=== PATIENT | female | born 1935 | race Caucasian/White ===

== ENCOUNTER 2020-05-04 08:10 | Outpatient (REF) | payer MEDICARE, OTHER, SELFPAY ==
[2020-05-04 11:31] LABS: MANUAL DIFF FLAG NO
[2020-05-04 11:43] LABS: Basophils Absolute Auto 0.1 X10*3/uL (0.0-0.2); Basophils Percent Auto 0.8 % (0-2); Eosinophils Absolute Auto 0.3 X10*3/uL (0.0-0.4); Eosinophils Percent Auto 3.4 % (0-4); Hematocrit 40.2 % (37-47); Hemoglobin 12.7 g/dl (12.0-16.0); Imm Gran Abs Auto 0.03 X10*3/uL (0.00-0.03); Imm Gran Pct Auto 0.3 % (0.0-0.4); Lymphocytes Absolute Auto 1.3 X10*3/uL (1.2-4.9); Lymphocytes Percent Auto 14.5 % (20-40); Mean Corpuscular HGB Conc 31.6 g/dl (31.0-35.0); Mean Corpuscular Hemoglobin 29.7 pg (27.0-33.0); Mean Corpuscular Volume 94.1 fL (80-98); Mean Platelet Volume 10.2 fL (9.4-12.3); Monocytes Percent Auto 10.7 % (2-11); Neutrophils Absolute Auto 6.4 X10*3/uL (2.0-8.3); Neutrophils Percent Auto 70.3 % (45-73); Platelet Count 278 X10*3/uL (160-400); Red Blood Count 4.27 X10*6/uL (4.20-5.50); Red Cell Distribution Width 13.4 % (11.0-16.0); White Blood Count 9.1 X10*3/uL (4.8-10.8)
[2020-05-04 12:03] LABS: Albumin Level 4.5 g/dL (3.5-5.0); Anion Gap 17 (12-20); Blood Urea Nitrogen 43 mg/dL (9-16); Calcium 9.5 mg/dL (8.4-10.2); Carbon Dioxide 30 mmol/L (22-29); Chloride 99 mmol/L (96-108); Estimated Glomerular Filt Rate 25; Phosphorus 3.3 mg/dL (2.7-4.5); Sodium 142 mmol/L (135-145)
[2020-05-04 14:22] LABS: Renal w Reflex Lab Use Only Order verified
[2020-05-05 17:52] LABS: Calcium (PTHI) 10.2 mg/dL (8.6-10.4); PTHI 107 pg/mL (14-64)
== END 2020-05-04 08:11 | disposition home or self-care (01) ==
LOC: HO.HMGCLDS 08:10
PROVIDERS: PCP Internal Medicine; Visit Provider Internal Medicine Nephrology
DX: I12.9 Hypertensive chronic kidney disease with stage 1 through stage 4 chronic kidney disease, or unspecified chronic kidney disease (principal); N18.30 Chronic kidney disease, stage 3 unspecified; N17.9 Acute kidney failure, unspecified; R80.9 Proteinuria, unspecified
CPT/HCPCS: 36415; 80051; 82040; 82310; 82565; 83970; 84100; 84520; 85025

== ENCOUNTER → 2020-05-06 08:58 | Outpatient (BNVA) | payer MEDICARE, OTHER, SELFPAY | PROVIDERS: PCP Internal Medicine; Referring Provider Internal Medicine; Visit Provider Nurse Practitioner | DX: Z71.2 Person consulting for explanation of examination or test findings (principal); Z86.010 Personal history of colon polyps; Z80.0 Family history of malignant neoplasm of digestive organs | CPT/HCPCS: 99212 ==

== ENCOUNTER 2020-08-27 09:21 | Outpatient (REF) | payer MEDICARE, OTHER, SELFPAY ==
[2020-08-27 12:05] LABS: Anion Gap 14 (12-20); Blood Urea Nitrogen 36 mg/dL (9-16); Calcium 9.6 mg/dL (8.4-10.2); Carbon Dioxide 26 mmol/L (22-29); Chloride 106 mmol/L (96-108); Estimated Glomerular Filt Rate 24; Phosphorus 3.3 mg/dL (2.7-4.5); Potassium 4.3 mmol/L (3.3-5.1); Sodium 142 mmol/L (135-145)
[2020-08-27 13:26] LABS: Renal w Reflex Lab Use Only Order verified
== END 2020-08-27 09:22 | disposition home or self-care (01) ==
LOC: HO.HMGCLDS 09:21
PROVIDERS: PCP Internal Medicine; Visit Provider Internal Medicine Nephrology
DX: I12.9 Hypertensive chronic kidney disease with stage 1 through stage 4 chronic kidney disease, or unspecified chronic kidney disease (principal); N18.30 Chronic kidney disease, stage 3 unspecified; R80.9 Proteinuria, unspecified; N17.9 Acute kidney failure, unspecified
CPT/HCPCS: 36415; 80051; 82310; 82565; 84100; 84520

== ENCOUNTER 2021-09-14 11:48 | Emergency (ER) | payer MEDICARE, SELFPAY ==
--- NOTE | ~2021-09-14 | US_ITS ---
EXAMINATION: US VENOUS ULTRASOUND WITH DOPPLER LOWER EXTREMITY, LEFT CLINICAL INFORMATION: Left leg pain COMPARISON: None TECHNIQUE: Ultrasound of the deep veins is performed from the hip to the calf with compression sonography and color and pulse Doppler assessment. Spectral analysis with color-flow imaging is performed. FINDINGS: There is normal venous compression and respiratory variation and augmented flow. The visualized common femoral vein, superficial femoral vein, profunda femoral vein, popliteal vein, and the trifurcation region shows no evidence of deep venous thrombosis. There is no significant popliteal fossa cyst. No popliteal artery aneurysm. US/US venous duplex LE LT IMPRESSION: No acute DVT demonstrated in the left lower extremity.
[2021-09-14 12:06] VITALS: BP 145/88; PULSE 18; RESP 16; TEMP 36.6; O2SAT 97; BMI 28.3
--- NOTE | 2021-09-14 12:26 | ED_ITS ---
HPI - Extremity Problem General Chief complaint: Extremity Problem Stated complaint: leg pain ? blood clot Time Seen by Provider: 09/14/21 12:25 Source: patient Mode of arrival: ambulatory Limitations: no limitations History of Present Illness HPI Narrative: 86-year-old female came in for evaluation of Left lower extremities pain. Pain started about 7 days ago, declined any trauma to the lower extremities, pain is constant, described as dull aching pain to the back of her left thigh traveling down to the lateral aspect of left lower leg, pain is more with movement, no relieving factor, no associated symptoms of fever or chills. No recent travel, no lower extremities swelling. 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 No back pain, no numbness, no weakness, no urinary or stool incontinence. Related Data Previous Rx's Medication Instructions Recorded rosuvastatin 40 mg tablet 40 mg PO DAILY #90 tab 11/09/20 Allergies Allergy/AdvReac Type Severity Reaction Status Date / Time No Known Allergies Allergy Verified 05/06/20 08:59 [No Known Allergies*] Review of Systems Review of Systems: All other systems are reviewed and are negative Constitutional: Reports as per HPI and Reports no additional constitutional complaints Eyes: Reports as per HPI and Reports no additional eye complaints Reports system reviewed and no additional complaints, except as documented Cardiovascular: Reports as per HPI and Reports no additional cardiovascular complaints Respiratory: Reports as per HPI and Reports no additional respiratory complaints Gastrointestinal: Reports as per HPI and Reports no additional gastrointestinal complaints Genitourinary: Reports no additional female genitourinary complaints Musculoskeletal: Reports no additional musculoskeletal complaints Skin/Breast: Reports system reviewed and no additional complaints, except as docu Psychiatric: Reports no additional psychiatric complaints Endocrine: Reports no additional endocrine complaints Hematologic/Lymphatic: Reports no additional hematologic/lymphatic complaints Allergic/Immunologic: Reports no additional allergic/immunologic complaints Reports system reviewed and no additional complaints, except as documented and Reports Abnormal speech present PMFSH Past Medical History Surgical History Hx of cardiac catheterization (~05/2020) Hx of colonoscopy Hx of endoscopy Family History Family History Father Lung cancer Stomach ulcer Sister Colon cancer, Onset Age: 80 Breast cancer Heart disease HTN (hypertension) Mother Cirrhosis of liver Family/Other Stomach ulcer Social History Social History Alcohol intake: current Alcohol intake frequency: does not drink Advance Directives: Yes Advance Directives Information Provided: No Advance Directives on File: No Physical Exam Vital Signs: Vital Signs: Last Vital Signs Temp 97.8 F 09/14/21 12:06 Pulse 18 L 09/14/21 12:06 Resp 16 09/14/21 12:06 BP 145/88 H 09/14/21 12:06 Pulse Ox 97 09/14/21 12:06 BMI result Body Mass Index 28.3 Vital signs have been reviewed as appeared to be correct. Blood pressure normal. Heart rate normal. Respiration rate normal. Temperature normal. Oxygen saturation normal. Appearance: Alert. Oriented X3. No acute distress. Head: Normal external exam. Normocephalic. Atraumatic. No Ramos signs noted. No raccoon eyes noted Eyes: PERRLA. EOMI. Conjunctiva and sclera normal. Eyelids normal. ENT: TM's Normal. Pharynx normal. Uvula midline. Moist mucous membranes. No trismus noted. No drooling noted. No muffled voice noted. Neck: Normal inspection. Neck supple. FROM. No adenopathy. Thyroid Normal. No meningeal signs. No neck mass noted. CVS: Normal heart rate and rhythm. Heart sound normal. No murmurs noted. Pulses normal throughout. Respiratory: No respiratory distress. Painless inspiration. Breath sounds normal. No wheezes/rales/rhonchi noted. Chest nontender. No accessory muscle usage noted or decreased air movement noted. Abdomen: Soft and nontender. Bowel sounds normal in all 4 quadrants. No distention noted. No organomegaly noted. No visible injury noted. Back: No CVA tenderness. Full range of motion noted. Skin: Skin warm and dry. Normal skin color. Normal skin turgor. No rashes/lesions/lacerations noted. Extremities: No lower extremity edema. Extremities exhibit normal range of motion. Extremities nontender. Neuro: Oriented X 3. Cranial nerve exam: II-XII are grossly intact No motor deficit. No sensory deficit. Reflexes normal. Course Course Course Narrative: Assessment and plan. 86-year-old female with left lower extremities pain for the past week, no trauma, no deformity, no back issue, normal neuro exam, elevated D-dimer but negative ultrasound for DVT, labs unremarkable for chronic but stable renal insufficiency patient is already following with Dr. Zimmer from Renal. MDM - Extremity (Nontraumatic) Lab Data Attestation: I reviewed the patient's lab results. Result diagrams: 09/14/21 13:03 09/14/21 13:03 Labs: Lab Results 09/14/21 09/14/21 09/14/21 Range/Units 13:03 13:03 13:03 WBC 8.4 (4.8-10.8) X10*3/uL RBC 3.95 L (4.20-5.50) X10*6/uL Hgb 12.0 (12.0-16.0) g/dl Hct 37.0 (37.0-47.0) % MCV 93.7 (80.0-98.0) fL MCH 30.4 (27.0-33.0) pg MCHC 32.4 (31.0-35.0) g/dl RDW 13.7 (11.0-16.0) % Plt Count 195 (160-400) X10*3/uL MPV 9.5 (9.4-12.3) fL Immature Gran % (Auto) 0.4 (0.0-0.4) % Neut % (Auto) 65.1 (45-73) % Lymph % (Auto) 17.8 L (20-40) % [place] % (Auto) 12.4 H (2-11) % Eos % (Auto) 3.8 (0-4) % Baso % (Auto) 0.5 (0-2) % Lymph # (Auto) 1.5 (1.2-4.9) X10*3/uL [place] # (Auto) 1.0 (0.1-1.2) X10*3/uL Eos # (Auto) 0.3 (0.0-0.4) X10*3/uL Baso # (Auto) 0.0 (0.0-0.2) X10*3/uL Abs Immat Gran (auto) 0.03 (0.00-0.03) X10*3/uL Absolute Neuts (auto) 5.5 (2.0-8.3) x10*3/uL Absolute Nucleated RBC 0.000 (0.0-0.012) X10*3/uL Nucleated RBC % (auto) 0.0 (0.0-0.2) /100WBC D-Dimer High Sensitivty 665 NG/ML Sodium 138 (135-145) mmol/L Potassium 3.9 (3.3-5.1) mmol/L Chloride 106 (96-108) mmol/L Carbon Dioxide 21 L (22-29) mmol/L Anion Gap 15 (12-20) BUN 40 H (9-16) mg/dL Creatinine 2.56 H (0.5-1.4) mg/dL Estim Creat Clear Calc 16.2 Estimated GFR 18 Random Glucose 160 H (60-115) mg/dL Calcium 9.9 (8.4-10.2) mg/dL Imaging Data Left lower extremity is ultrasound: Attestation: I personally reviewed and interpreted this imaging study as follows: Radiologist's impression: No acute DVT demonstrated in the left lower extremity. Discharge Plan Discharge Clinical Impression: Left leg pain Patient Disposition: Home, Self-Care Instructions: Leg Pain (ED) Additional Instructions: Voltaren is good [id number] anti inflammatory and pain control ointment to use twice a day if needed for pain. Prescriptions: No Action rosuvastatin 40 mg tablet 40 mg PO DAILY Qty: 90 0RF Rx Instructions: needs cardiology follow up before more refills Referrals: Ene Menon NP [Primary Care Provider] - 2 days
[2021-09-14 13:10] LABS: MANUAL DIFF FLAG NO
[2021-09-14 13:11] LABS: Basophils Percent Auto 0.5 % (0-2); Eosinophils Absolute Auto 0.3 X10*3/uL (0.0-0.4); Eosinophils Percent Auto 3.8 % (0-4); Imm Gran Abs Auto 0.03 X10*3/uL (0.00-0.03); Imm Gran Pct Auto 0.4 % (0.0-0.4); Lymphocytes Absolute Auto 1.5 X10*3/uL (1.2-4.9); Lymphocytes Percent Auto 17.8 % (20-40); Mean Corpuscular HGB Conc 32.4 g/dl (31.0-35.0); Mean Corpuscular Hemoglobin 30.4 pg (27.0-33.0); Mean Corpuscular Volume 93.7 fL (80.0-98.0); Mean Platelet Volume 9.5 fL (9.4-12.3); Monocytes Percent Auto 12.4 % (2-11); Neutrophils Absolute Auto 5.5 x10*3/uL (2.0-8.3); Neutrophils Percent Auto 65.1 % (45-73); Platelet Count 195 X10*3/uL (160-400); Red Blood Count 3.95 X10*6/uL (4.20-5.50); Red Cell Distribution Width 13.7 % (11.0-16.0); White Blood Count 8.4 X10*3/uL (4.8-10.8)
[2021-09-14 13:19] LABS: D Dimer High Sensitivity 665 NG/ML
[2021-09-14 13:24] LABS: Anion Gap 15 (12-20); Blood Urea Nitrogen 40 mg/dL (9-16); Calcium 9.9 mg/dL (8.4-10.2); Carbon Dioxide 21 mmol/L (22-29); Chloride 106 mmol/L (96-108); Creatinine Clr Calc Pharmacy 16.2; Estimated Glomerular Filt Rate 18; Glucose Random 160 mg/dL (60-115); Potassium 3.9 mmol/L (3.3-5.1); Sodium 138 mmol/L (135-145)
[2021-09-14 14:13] VITALS: BP 143/68; PULSE 80; RESP 18; O2SAT 98
== END 2021-09-14 14:14 | disposition home or self-care (01) ==
PROVIDERS: Emergency Provider Emergency Medicine; PCP Nurse Practitioner Family
DX: M79.605 Pain in left leg (principal); R60.0 Localized edema; Z79.899 Other long term (current) drug therapy; Z79.01 Long term (current) use of anticoagulants
CPT/HCPCS: 36415; 80048; 85025; 85379; 93971; 99283; 99284

== ENCOUNTER 2021-09-26 11:12 | Inpatient (IN) | payer MEDICARE, SELFPAY ==
--- NOTE | ~2021-09-26 | US_ITS ---
EXAMINATION: NONINVASIVE ASSESSMENT OF THE ARTERIES OF THE LEFT LOWER EXTREMITY CLINICAL INFORMATION: Redness and pain TECHNIQUE: Duplex Doppler techniques with wave form analysis and measurement of velocities in the common femoral, profunda femoral, superficial femoral, popliteal and tibial arteries on the left. The study was performed only at rest. COMPARISON: None FINDINGS: * LEFT LE. Left direct duplex Doppler findings: There is evidence of atherosclerotic disease with vessel wall calcification. * Common femoral artery: 244 cm/s, Diastolic flow reversal: Yes * Superficial femoral artery (proximal, mid, distal): 221, 77 and 39 cm/s, Diastolic flow reversal: No, mixed biphasic and monophasic * Popliteal artery: 46 cm/s, Diastolic flow reversal: No. Monophasic * Posterior tibial artery visualized at the ankle only: 22 cm/s, Diastolic flow reversal: No. Monophasic. * Profunda femoral artery: 2 3 4 cm/s. Diastolic flow reversal: No. Biphasic flow. US/US arterial duplex LE LT IMPRESSION: Abnormal exam. Increased peak systolic velocities in the common femoral, proximal superficial femoral and profunda femoral arteries suggestive of stenosis/inflow disease. There is decreased peak systolic velocity in the mid and distal superficial femoral, popliteal and posterior tibial arteries and abnormal biphasic to monophasic flow.
--- NOTE | ~2021-09-26 | US_ITS ---
EXAMINATION: US VENOUS ULTRASOUND WITH DOPPLER LOWER EXTREMITY, BILATERAL CLINICAL INFORMATION: Leg pain COMPARISON: Venous Doppler ultrasound exam 09/14/2021 left leg TECHNIQUE: Ultrasound of the deep veins is performed from the hip to the calf with compression sonography and color and pulse Doppler assessment. Spectral analysis with color-flow imaging is performed. FINDINGS: RIGHT: There is normal venous compression and respiratory variation and augmented flow. The visualized common femoral vein, superficial femoral vein, profunda femoral vein, popliteal vein, and the trifurcation region shows no evidence of deep venous thrombosis. Posterior tibial vein is normal. The peroneal vein is not well seen.. There is no significant popliteal fossa cyst. LEFT: There is normal venous compression and respiratory variation and augmented flow. The visualized common femoral vein, superficial femoral vein, profunda femoral vein, popliteal vein, and the trifurcation region shows no evidence of deep venous thrombosis. Posterior tibial vein is normal. The peroneal vein is not well seen There is no significant popliteal fossa cyst. If the patient's symptoms persist, followup ultrasound in 5 days 7 days might be of value to exclude proximal propagation from a non-visualized calf vein. US/US venous duplex LE IMPRESSION: No DVT demonstrated in the bilateral lower extremity.
--- NOTE | ~2021-09-26 | US_ITS ---
EXAMINATION: US RETROPERITONEAL LIMITED (RENAL ONLY) CLINICAL INFORMATION: Acute and chronic kidney disease. COMPARISON: Previous CT of the abdomen and pelvis August 2018 TECHNIQUE: Grayscale imaging of the kidneys. FINDINGS: RIGHT KIDNEY: 8.4 x 3.5 x 3.5 cm (SAG x AP x TRV). The right kidney is smaller than the left. There is renal cortical thinning. No calculi or focal parenchymal lesions. No hydronephrosis. LEFT KIDNEY: 11.3 x 6.1 x 5.8 cm (SAG x AP x TRV). The kidney is normal in size, contour, and echogenicity. Renal cortical thickness is normal. No calculi or focal parenchymal lesions. No hydronephrosis. US/US renal BI IMPRESSION: Small right kidney and right renal cortical thinning. This is similar to previous CT August 2018. Normal left kidney. No hydronephrosis..
[2021-09-26 12:33] VITALS: BP 153/65; PULSE 90; RESP 16; TEMP 36.8; O2SAT 98; BMI 28.3
[2021-09-26 16:03] LABS: MANUAL DIFF FLAG NO
[2021-09-26 16:09] LABS: Basophils Percent Auto 0.2 % (0-2); Eosinophils Percent Auto 0.1 % (0-4); Hemoglobin 13.4 g/dl (12.0-16.0); Imm Gran Abs Auto 0.32 X10*3/uL (0.00-0.03); Mean Corpuscular HGB Conc 35.3 g/dl (31.0-35.0); Mean Corpuscular Hemoglobin 30.6 pg (27.0-33.0); Mean Corpuscular Volume 86.8 fL (80.0-98.0); Mean Platelet Volume 9.5 fL (9.4-12.3); Monocytes Absolute Auto 1.3 X10*3/uL (0.1-1.2); Monocytes Percent Auto 11.9 % (2-11); Neutrophils Absolute Auto 8.1 x10*3/uL (2.0-8.3); Neutrophils Percent Auto 75.8 % (45-73); Platelet Count 172 X10*3/uL (160-400); Red Blood Count 4.38 X10*6/uL (4.20-5.50); Red Cell Distribution Width 13.7 % (11.0-16.0); White Blood Count 10.7 X10*3/uL (4.8-10.8)
[2021-09-26 16:20] LABS: COVID-19 Test Negative (Negative); IDNOW Serial# 16C4AD1C
[2021-09-26 16:47] LABS: Anion Gap 27 (12-20); Blood Urea Nitrogen 118 mg/dL (9-16); Calcium 7.3 mg/dL (8.4-10.2); Carbon Dioxide 8 mmol/L (22-29); Chloride 99 mmol/L (96-108); Creatinine Clr Calc Pharmacy 5.5; Estimated Glomerular Filt Rate 5; Glucose Random 152 mg/dL (60-115); Potassium 3.6 mmol/L (3.3-5.1); Sodium 130 mmol/L (135-145)
--- NOTE | 2021-09-26 17:08 | ED.GENADULT ---
HPI - General Adult General Chief complaint: General Medical Stated complaint: VOMITING DIARRHEA WEAKNESS Time Seen by Provider: 09/26/21 16:47 Source: patient and family Mode of arrival: wheelchair Limitations: no limitations History of Present Illness HPI narrative: Patient comes to emergency room complaining of vomiting and diarrhea for 5 days. Patient states that this morning patient started feeling very weak. Patient called her primary care physician and was asked to come to the emergency room. Patient denies any blood in the stool, no abdominal pain. Patient states that she has been unable to take her p.o. medications because she vomits them right away. Patient states that her daughter her 2 grandsons are sick at home with GI bug Related Data Home Medications Medication Instructions Recorded Confirmed amlodipine 10 mg tablet 10 mg PO DAILY 09/26/21 09/26/21 anastrozole 1 mg tablet 1 mg PO DAILY 09/26/21 09/26/21 ascorbic acid (vitamin C) 500 mg mg PO 09/26/21 capsule cholecalciferol (vitamin D3) 50 mcg PO DAILY 09/26/21 mcg (2,000 unit) capsule (Vitamin D3) dulaglutide 1.5 mg/0.5 mL 1.5 mg SUBCUT TU@1000 09/26/21 09/26/21 subcutaneous pen injector (Trulicity) famotidine 20 mg tablet 20 mg PO DAILY 09/26/21 09/26/21 metoprolol succinate 50 mg 50 mg PO DAILY 09/26/21 09/26/21 tablet,extended release 24 hr pantoprazole 40 mg tablet,delayed 40 mg PO DAILY 09/26/21 09/26/21 release vitamin B complex 1 tab PO DAILY 09/26/21 09/26/21 Previous Rx's Medication Instructions Recorded rosuvastatin 40 mg tablet 40 mg PO DAILY #90 tab 11/09/20 Allergies Allergy/AdvReac Type Severity Reaction Status Date / Time No Known Allergies Allergy Verified 05/06/20 08:59 [No Known Allergies*] Review of Systems Review of Systems: Constitutional : No Weight loss, No Fever, No Chills, No Night Sweats, complaining of generalized weakness and fatigue ENT/Mouth : No Hearing loss, No Ear Pain, No Nasal Congestion, No Sinus Pain, No Hoarseness, No sore throat, No Rhinorrhea, No Swallowing Difficulty Eyes: No Eye Pain, No Swelling, No Redness, No Foreign Body, No Discharge, No Vision Changes Cardiovascular : No Chest Pain, No SOB, No Dyspnea on Exertion, No Orthopnea, No Edema, No Palpitations Respiratory : No Cough, No Sputum, No Wheezing, No Smoke Exposure, No Dyspnea Gastrointestinal : Complaining of nausea vomiting and diarrhea for 5 days. No Constipation, No abdominal Pain, No Hematochezia, No Melena Genitourinary : no irregular bleeding, No Dysuria, No Urinary Frequency, No Hematuria, No Urinary Incontinence, No Urgency, No Flank Pain, No Urinary Flow Changes, No Hesitancy Musculoskeletal : No joint pain, No Myalgias, No Joint Swelling Skin : No Skin Lesions, No rash Neuro : No Weakness, No Numbness, No Paresthesias, No Loss of Consciousness, No Dizziness, No Headache Psych : No Anxiety/Panic, No Depression, No SI/HI/AH/VH, No Social Issues, Heme/Lymph: No Bruising, No Bleeding,No Lymphadenopathy Endocrine : No Polyuria, No Polydipsia, No Temperature Intolerance [facility] Past Medical History Medical History CKD (chronic kidney disease) Coronary artery disease Diabetes Hypertension Surgical History Hx of cardiac catheterization (~05/2020) Hx of colonoscopy Hx of endoscopy Family History Family History Father Lung cancer Stomach ulcer Sister Colon cancer, Onset Age: 80 Breast cancer Heart disease HTN (hypertension) Mother Cirrhosis of liver Family/Other Stomach ulcer Social History Social History Alcohol intake: never Patient Tobacco Use Status: Former Tobacco user Advance Directives: Yes Advance Directives Information Provided: No Advance Directives on File: No Physical Exam ED Vital Signs: Vital Signs - 24 hr 09/26/21 12:33 09/26/21 17:29 Temperature 98.2 F 97.6 F Pulse Rate 90 88 Respiratory Rate 16 18 Blood Pressure 153/65 H 132/50 L Pulse Oximetry 98 99 BMI result Body Mass Index 28.3 Const Other: Appearance: Alert. Oriented X3. No acute distress. Eyes: Pupils equal, round and reactive to light. ENT: Dry oral mucosa Neck: Normal inspection. Neck supple. No lymph nodes noted. No crepitus CVS: Normal heart rate and rhythm. Pulses normal. Normal S1 and S2 Respiratory: No respiratory distress. Breath sounds normal. No Wheezing. No rales Abdomen: Soft and nontender. No rigidity. No distention. Skin: Skin warm and dry. Normal skin color. Normal skin turgor. Extremities: No lower extremity edema. No Lacerations. No Rash Neuro: Oriented X 3. No motor deficit. No sensory deficit. Moving all extremities. No slurred speech. CN 2 through 12 grossly intact Psych: calm, cooperative, normal affect Course Course Course Narrative: Patient's creatinine baseline is 2.5. Today 7.45. Patient is receiving IV fluids. Discussed with the patient that she will be admitted to the hospital. Patient's ABG shows a bicarb of 6. This is after 1 amp of bicarb. We will go ahead and give a 2nd amp. Patient's metabolic acidosis is likely secondary to diarrhea. Patient is getting a 2nd amp of bicarb, also will be repleted with p.o.. Physically, patient is well-appearing, otherwise feels well I discussed the patient with Dr. Walker, patient being admitted. Medical Decision Making Lab Data Result diagrams: 09/26/21 15:59 09/26/21 15:59 Labs: Lab Results 09/26/21 09/26/21 09/26/21 Range/Units 15:59 15:59 15:59 WBC 10.7 (4.8-10.8) X10*3/uL RBC 4.38 (4.20-5.50) X10*6/uL Hgb 13.4 (12.0-16.0) g/dl Hct 38.0 (37.0-47.0) % MCV 86.8 (80.0-98.0) fL MCH 30.6 (27.0-33.0) pg MCHC 35.3 H (31.0-35.0) g/dl RDW 13.7 (11.0-16.0) % Plt Count 172 (160-400) X10*3/uL MPV 9.5 (9.4-12.3) fL Immature Gran % (Auto) 3.0 H (0.0-0.4) % Neut % (Auto) 75.8 H (45-73) % Lymph % (Auto) 9.0 L (20-40) % [place] % (Auto) 11.9 H (2-11) % Eos % (Auto) 0.1 (0-4) % Baso % (Auto) 0.2 (0-2) % Lymph # (Auto) 1.0 L (1.2-4.9) X10*3/uL [place] # (Auto) 1.3 H (0.1-1.2) X10*3/uL Eos # (Auto) 0.0 (0.0-0.4) X10*3/uL Baso # (Auto) 0.0 (0.0-0.2) X10*3/uL Abs Immat Gran (auto) 0.32 H (0.00-0.03) X10*3/uL Absolute Neuts (auto) 8.1 (2.0-8.3) x10*3/uL Absolute Nucleated RBC 0.000 (0.0-0.012) X10*3/uL Nucleated RBC % (auto) 0.0 (0.0-0.2) /100WBC O2 Saturation % ABG pH at Pt Temp (7.35-7.45) ABG pCO2 at Pt Temp (32-45) mmHg ABG pO2 at Pt Temp (83-108) mmHg ABG HCO3 (22-26) mmol/L ABG Base Excess (Actual) mmol/L Sodium 130 L (135-145) mmol/L Potassium 3.6 (3.3-5.1) mmol/L Chloride 99 (96-108) mmol/L Carbon Dioxide 8 L* D (22-29) mmol/L Anion Gap 27 H (12-20) BUN 118 H D (9-16) mg/dL Creatinine 7.45 H* (0.5-1.4) mg/dL Estim Creat Clear Calc 5.5 Estimated GFR 5 Random Glucose 152 H (60-115) mg/dL Calcium 7.3 L D (8.4-10.2) mg/dL Total Bilirubin 0.6 (0.0-1.0) mg/dL Direct Bilirubin 0.2 (0.0-0.5) mg/dL AST 23 (5-31) U/L ALT 24 (0-31) U/L Alkaline Phosphatase 72 (39-117) U/L Total Protein 7.5 (6.5-8.0) g/dL Albumin 4.4 (3.5-5.0) g/dL COVID-19 ([facility]) Negative (Negative) COVID-19 Clin Com See Note Influenza Type A ([facility]) (Negative) Influenza Type B ([facility]) (Negative) Influenza A & B Note 09/26/21 09/26/21 09/26/21 Range/Units 18:21 18:21 20:17 WBC (4.8-10.8) X10*3/uL RBC (4.20-5.50) X10*6/uL Hgb (12.0-16.0) g/dl Hct (37.0-47.0) % MCV (80.0-98.0) fL MCH (27.0-33.0) pg MCHC (31.0-35.0) g/dl RDW (11.0-16.0) % Plt Count (160-400) X10*3/uL MPV (9.4-12.3) fL Immature Gran % (Auto) (0.0-0.4) % Neut % (Auto) (45-73) % Lymph % (Auto) (20-40) % [place] % (Auto) (2-11) % Eos % (Auto) (0-4) % Baso % (Auto) (0-2) % Lymph # (Auto) (1.2-4.9) X10*3/uL [place] # (Auto) (0.1-1.2) X10*3/uL Eos # (Auto) (0.0-0.4) X10*3/uL Baso # (Auto) (0.0-0.2) X10*3/uL Abs Immat Gran (auto) (0.00-0.03) X10*3/uL Absolute Neuts (auto) (2.0-8.3) x10*3/uL Absolute Nucleated RBC (0.0-0.012) X10*3/uL Nucleated RBC % (auto) (0.0-0.2) /100WBC O2 Saturation 96.0 % ABG pH at Pt Temp 7.20 L* (7.35-7.45) ABG pCO2 at Pt Temp 15 L* (32-45) mmHg ABG pO2 at Pt Temp 109 H (83-108) mmHg ABG HCO3 6 L (22-26) mmol/L ABG Base Excess (Actual) -19.0 mmol/L Sodium (135-145) mmol/L Potassium (3.3-5.1) mmol/L Chloride (96-108) mmol/L Carbon Dioxide (22-29) mmol/L Anion Gap (12-20) BUN (9-16) mg/dL Creatinine (0.5-1.4) mg/dL Estim Creat Clear Calc Estimated GFR Random Glucose (60-115) mg/dL Calcium (8.4-10.2) mg/dL Total Bilirubin (0.0-1.0) mg/dL Direct Bilirubin (0.0-0.5) mg/dL AST (5-31) U/L ALT (0-31) U/L Alkaline Phosphatase (39-117) U/L Total Protein (6.5-8.0) g/dL Albumin (3.5-5.0) g/dL COVID-19 ([facility]) Negative (Negative) COVID-19 Clin Com See Note Influenza Type A ([facility]) Negative (Negative) Influenza Type B ([facility]) Negative (Negative) Influenza A & B Note See Note Discharge Plan Discharge Clinical Impression: Nausea vomiting and diarrhea, Acute hyponatremia, [id number] renal failure Patient Disposition: Admitted As Inpatient
[2021-09-26 17:29] VITALS: BP 132/50; PULSE 88; RESP 18; TEMP 36.4; O2SAT 99
[2021-09-26 17:32] LABS: Alanine Aminotransferase 24 U/L (0-31); Albumin Level 4.4 g/dL (3.5-5.0); Alkaline Phosphatase 72 U/L (39-117); Aspartate Amino Transferase 23 U/L (5-31); Bilirubin Direct 0.2 mg/dL (0.0-0.5); Bilirubin Total 0.6 mg/dL (0.0-1.0); Total Protein 7.5 g/dL (6.5-8.0)
[2021-09-26] MEDS: ondansetron HCL 4 MG/2 ML VIAL IVPUSH (18:08)
[2021-09-26] MEDS: Loperamide HCl 2 MG CAPSULE 4 MG PO (18:08)
[2021-09-26] MEDS: Sodium Bicarbonate 8.4% 50 MEQ/50 ML SYRINGE IVPUSH ×2 (18:09→20:46)
[2021-09-26] MEDS: Lactated Ringers 500 ML 999 ML IV (18:42)
[2021-09-26 18:43] LABS: COVID-19 Test Negative (Negative); IDNOW Serial# 55D5AD1C
[2021-09-26 18:44] LABS: IDNOW Serial# 08D9AD1C; Influenza A Negative (Negative); Influenza B2 Negative (Negative)
[2021-09-26 20:02] VITALS: O2SAT 98
--- NOTE | 2021-09-26 20:12 | PHA.MEDREC ---
MED REC COMPLETE, PATIENT HAS BEEN UMABLE TO KEEP ANY MEDICATIONS DOWN FOR SEVERAL DAYS, JUST NEED TO VERIFY DOSES ON VIT D AND C, DAUGHTER WAS UNSURE OF DOSE Pharmacy Consult ? Medication Reconciliation Pharmacy has completed the medication reconciliation.
[2021-09-26 20:26] LABS: ABG Refer to POC result
[2021-09-26 20:27] LABS: ABG HCO3 6 mmol/L (22-26); ABG pCO2 15 mmHg (32-45); ABG pO2 109 mmHg (83-108)
--- NOTE | 2021-09-26 21:34 | P.HPHOSP_ITS ---
History of Present Illness Date of Service: 09/26/21 Chief Complaint: nausea/vomiting / diarrhea 86-year-old female with a past history of hypertension, hyperlipidemia, diabetes, CKD, CAD presented to the hospital today with a chief complaint nausea vomiting and diarrhea. Patient reports that over the past 1 week she has been having nausea vomiting and diarrhea and also decreased oral intake. Mentions that she has sick contacts at home has grand kid with similar symptoms; denies any abdominal pain. Denies any blood in the vomitus or stool. Mentions that she has been complaint with her home medications. Mentions that she used to take furosemide for her peripheral edema but not on it anymore. Denies any fever chills cough. Denies any urinary symptoms. Review of all other systems is negative except mentioned above ER course: Per ER team patient noted to have benign examination; on labs noted to have severe BUCK with creatinine of 7.4 compared to baseline of 2.5. Also noted to have metabolic acidosis in the setting of renal insufficiency. Patient was given 2 ampules of sodium bicarb. PH noted to be 7.2. Admitted to the hospital for further management. [facility] Medical History CKD (chronic kidney disease) Coronary artery disease Diabetes Hypertension Family History Father Lung cancer Stomach ulcer Sister Colon cancer, Onset Age: 80 Breast cancer Heart disease HTN (hypertension) Mother Cirrhosis of liver Family/Other Stomach ulcer Surgical History Hx of cardiac catheterization (~05/2020) Hx of colonoscopy Hx of endoscopy Social History Household Members: Children Housing: House Do you presently have visiting nurse or other home services: No Alcohol intake: never Patient Tobacco Use Status: Former Tobacco user Advance Directives Date on File: 09/27/21 service: No Current occupational status: retired Meds Allergies Allergy/AdvReac Type Severity Reaction Status Date / Time No Known Allergies Allergy Verified 05/06/20 08:59 [No Known Allergies*] Active Medications: Current Medications Pharmacy Consult (Consult Rx Perform Med Rec) 1 each MISCELLANE ONCE PRN PRN Reason: Consult order Home Medications Medication Instructions Recorded Confirmed Last Taken Type amlodipine 10 mg tablet 10 mg PO DAILY 09/26/21 09/26/21 Unknown History anastrozole 1 mg tablet 1 mg PO DAILY 09/26/21 09/26/21 Unknown History ascorbic acid (vitamin C) 500 mg mg PO 09/26/21 Unknown History capsule cholecalciferol (vitamin D3) 50 mcg PO DAILY 09/26/21 Unknown History mcg (2,000 unit) capsule (Vitamin D3) dulaglutide 1.5 mg/0.5 mL 1.5 mg SUBCUT TU@1000 09/26/21 09/26/21 Unknown History subcutaneous pen injector (Trulicity) famotidine 20 mg tablet 20 mg PO DAILY 09/26/21 09/26/21 Unknown History metoprolol succinate 50 mg 50 mg PO DAILY 09/26/21 09/26/21 Unknown History tablet,extended release 24 hr pantoprazole 40 mg tablet,delayed 40 mg PO DAILY 09/26/21 09/26/21 Unknown History release vitamin B complex 1 tab PO DAILY 09/26/21 09/26/21 Unknown History Physical Exam Vital Signs and Narrative: Vital Signs: Last Vital Signs Temp 97.6 F 09/26/21 17:29 Pulse 88 09/26/21 17:29 Resp 18 09/26/21 17:29 BP 132/50 L 09/26/21 17:29 Pulse Ox 99 09/26/21 17:29 BMI result Body Mass Index 28.3 Gen: Appears be in no acute distress HEENT: NCAT, Moist mucosa. Pulmonary: Vesicular breath sounds, fair air entry CVS: Normal S1-S2 Abdomen: BS+, Soft, Nontender Extremities: Warm well perfused Neuro: Alert and awake. Results Labs CBC and Chem 7: 09/28/21 06:10 09/28/21 11:04 Labs: Laboratory Results - last 24 hr 09/26/21 09/26/21 09/26/21 15:59 15:59 15:59 MCV 86.8 MCH 30.6 MCHC 35.3 H RDW 13.7 Plt Count 172 MPV 9.5 Immature Gran % (Auto) 3.0 H Neut % (Auto) 75.8 H Lymph % (Auto) 9.0 L [place] % (Auto) 11.9 H Eos % (Auto) 0.1 Baso % (Auto) 0.2 Lymph # (Auto) 1.0 L [place] # (Auto) 1.3 H Eos # (Auto) 0.0 Baso # (Auto) 0.0 Abs Immat Gran (auto) 0.32 H Absolute Neuts (auto) 8.1 Absolute Nucleated RBC 0.000 Nucleated RBC % (auto) 0.0 O2 Saturation ABG pH at Pt Temp ABG pCO2 at Pt Temp ABG pO2 at Pt Temp ABG HCO3 ABG Base Excess (Actual) Anion Gap 27 H Estim Creat Clear Calc 5.5 Estimated GFR 5 Random Glucose 152 H Calcium 7.3 L D Total Bilirubin 0.6 Direct Bilirubin 0.2 AST 23 ALT 24 Alkaline Phosphatase 72 Total Protein 7.5 Albumin 4.4 COVID-19 (ELEAZAR) Negative COVID-[place] Com See Note Influenza Type A (CL[facility]TON) Influenza Type B (CL[place]TON) Influenza A & B Note 09/26/21 09/26/21 09/26/21 18:21 18:21 20:17 MCV MCH MCHC RDW Plt Count MPV Immature Gran % (Auto) Neut % (Auto) Lymph % (Auto) [place] % (Auto) Eos % (Auto) Baso % (Auto) Lymph # (Auto) [place] # (Auto) Eos # (Auto) Baso # (Auto) Abs Immat Gran (auto) Absolute Neuts (auto) Absolute Nucleated RBC Nucleated RBC % (auto) O2 Saturation 96.0 ABG pH at Pt Temp 7.20 L* ABG pCO2 at Pt Temp 15 L* ABG pO2 at Pt Temp 109 H ABG HCO3 6 L ABG Base Excess (Actual) -19.0 Anion Gap Estim Creat Clear Calc Estimated GFR Random Glucose Calcium Total Bilirubin Direct Bilirubin AST ALT Alkaline Phosphatase Total Protein Albumin COVID-19 (ELEAZAR) Negative COVID-NA[place] Com See Note Influenza Type A (CL[place]TON) Negative Influenza Type B (CL[place]TON) Negative Influenza A & B Note See Note Assessment and Plan (1) [id number] renal failure: Status: Acute Plan 86-year-old female with a past history of hypertension, hyperlipidemia, diabetes, CKD, CAD presented to the hospital today with a chief complaint nausea vomiting and diarrhea. Noted to have BUCK on CKD/metabolic acidosis. Admitted for further management. Nausea/vomiting/diarrhea: Benign abdominal examination. Supportive care. No further episodes after came into the hospital. Will obtain stool studies if any further episodes of diarrhea. Patient has sick contacts. Likely viral gastroenteritis. BUCK on CKD/severe metabolic acidosis: Patient baseline creatinine around 2.5. Creatinine on presentation is 7.4. Also noted to have s pH of 7.2 and bicarb of 10 on presentation. Patient received 2 L of normal saline and the follow-up lab showed bicarb of 8. I spoke to Dr. Vincent from Nephrology who mentioned no acute intervention, suggested to start the patient on sodium bicarbonate drip. Bicarb drip started. Will repeat chemistry in 4-6 hours. Spoke to pharmacy to renally dose of home medications. Avoid nephrotoxins History of hypertension: Continue home amlodipine/metoprolol History of hyperlipidemia: Continue home statin History of diabetes: Insulin sliding scale History of breast cancer: Continue home anastrozole DVT prophylaxis: Subcu heparin Code status: Full code Quality Stroke Does the patient have a stroke diagnosis?: No VTE Prior VTE?: No VTE Risk Level:: Medical - moderate - high VTE Device Contraindication: Treatment Not Indicated VTE Drug Contraindication: N/A - Med Ordered
[2021-09-26 21:52] LABS: Anion Gap 28 (12-20); Blood Urea Nitrogen 117 mg/dL (9-16); Calcium 6.9 mg/dL (8.4-10.2); Carbon Dioxide 8 mmol/L (22-29); Chloride 99 mmol/L (96-108); Creatinine Clr Calc Pharmacy 5.8; Estimated Glomerular Filt Rate 5; Glucose Random 121 mg/dL (60-115); Potassium 2.9 mmol/L (3.3-5.1); Sodium 132 mmol/L (135-145)
--- NOTE | 2021-09-26 21:54 | PC.NURSE ---
Notified NEVAEH Ash of critical results of bicarb of 8 and creatine of 7.1
[2021-09-26 22:06] VITALS: BP 112/75; PULSE 100; RESP 17; O2SAT 95
[2021-09-26 22:33] LABS: Appearance Urine CLOUDY; Color Urine YELLOW; Glucose Urine UA NEG (NEG); Leukocyte Esterase Urine 3+ (NEG); Nitrite Urine NEG (NEG); PH 5.5 (5.0-8.0); UACC Culture Trigger YES; Urine Blood 3+ (NEG); Urine Ketones NEG (NEG); Urine Protein 3+ MG/DL (NEG-TRACE)
[2021-09-26 22:42] LABS: Bacteria Urine 3+ /LPF; Squamous Epithelial Cell Urine 3+ /LPF; WBC Clumps Urine NOTED
[2021-09-26] MEDS: Sodium Bicarbonate 8.4% 150 MEQ in Dextrose 5 % 850 ML IV (23:25)
[2021-09-26] MEDS: Heparin Sodium,Porcine 5,000 UNIT/ML VIAL 5000 UNIT SUBCUT (23:25)
[2021-09-26 23:58] VITALS: BP 137/74; PULSE 97; RESP 14; O2SAT 98
--- NOTE | 2021-09-27 00:45 | PC.NURSE ---
I assumed nursing care of this patient at 1900. Since that time the pt has been alert and oriented x 3, calm and cooperative, makes eye contact with RN. She has no complaints: no shortness of breath. respirations non-labored, no cyanosis, speaking in full sentences , room air sat's 95% or better. The pt has mostly been sleeping since I arrived, wakes to verbal stimuli. No nausea. No vomiting. She has taken small sips of PO fluids without difficulty, states she prefers to wait until morning to attempt to take food, I dont want to make my stomach feel the way it did before. The pt is aware that she is TBADM and verbalizes an understanding of this. Sodium Bicarb gtt infusing per MD order. Will continue to monitor.
[2021-09-27 01:57] LABS: Anion Gap 27 (12-20); Calcium 6.7 mg/dL (8.4-10.2); Carbon Dioxide 13 mmol/L (22-29); Chloride 95 mmol/L (96-108); Creatinine Clr Calc Pharmacy 5.8; Estimated Glomerular Filt Rate 5; Glucose Random 205 mg/dL (60-115); Potassium 2.8 mmol/L (3.3-5.1); Sodium 132 mmol/L (135-145)
[2021-09-27 02:07] LABS: Blood Urea Nitrogen 117 mg/dL (9-16)
[2021-09-27] MEDS: Potassium Chloride Packet 20 MEQ PACKET 40 MEQ PO ×2 (03:47→13:43)
[2021-09-27 04:46] LABS: Basophils Percent Auto 0.1 % (0-2); Eosinophils Percent Auto 0.1 % (0-4); Hematocrit 33.5 % (37.0-47.0); Hemoglobin 12.2 g/dl (12.0-16.0); Imm Gran Abs Auto 0.08 X10*3/uL (0.00-0.03); Lymphocytes Absolute Auto 0.8 X10*3/uL (1.2-4.9); Lymphocytes Percent Auto 10.3 % (20-40); MANUAL DIFF FLAG NO; Mean Corpuscular HGB Conc 36.4 g/dl (31.0-35.0); Mean Corpuscular Hemoglobin 30.7 pg (27.0-33.0); Mean Corpuscular Volume 84.2 fL (80.0-98.0); Mean Platelet Volume 9.2 fL (9.4-12.3); Monocytes Absolute Auto 1.1 X10*3/uL (0.1-1.2); Monocytes Percent Auto 14.2 % (2-11); Neutrophils Absolute Auto 5.8 x10*3/uL (2.0-8.3); Neutrophils Percent Auto 74.3 % (45-73); Platelet Count 129 X10*3/uL (160-400); Red Blood Count 3.98 X10*6/uL (4.20-5.50); Red Cell Distribution Width 13.4 % (11.0-16.0); White Blood Count 7.9 X10*3/uL (4.8-10.8)
[2021-09-27 05:20] LABS: Anion Gap 27 (12-20); Calcium 6.8 mg/dL (8.4-10.2); Carbon Dioxide 15 mmol/L (22-29); Chloride 95 mmol/L (96-108); Creatinine Clr Calc Pharmacy 5.7; Estimated Glomerular Filt Rate 5; Glucose Random 176 mg/dL (60-115); Potassium 2.9 mmol/L (3.3-5.1); Sodium 134 mmol/L (135-145)
[2021-09-27 05:31] LABS: Blood Urea Nitrogen 120 mg/dL (9-16)
[2021-09-27 05:51] VITALS: BP 135/78; PULSE 90; RESP 12; O2SAT 98
[2021-09-27] MEDS: Sodium Bicarbonate 8.4% 150 MEQ in Dextrose 5 % 850 ML IV ×2 (06:06→15:10)
[2021-09-27 07:47] VITALS: BP 123/65; PULSE 84; RESP 11; O2SAT 97
[2021-09-27 07:51] LABS: Glucose, Whole Blood 172 mg/dL (60-115)
[2021-09-27] MEDS: Heparin Sodium,Porcine 5,000 UNIT/ML VIAL 5000 UNIT SUBCUT ×3 (07:51→22:37)
[2021-09-27] MEDS: Omeprazole 20 MG CAPSULE.DR PO (07:52)
[2021-09-27] MEDS: Famotidine 20 MG TABLET PO (07:52)
[2021-09-27] MEDS: Atorvastatin Calcium 80 MG TABLET PO (07:52)
[2021-09-27] MEDS: Multivitamin TABLET 1 TAB PO (07:52)
[2021-09-27] MEDS: amLODIPine Besylate 10 MG TABLET PO (07:52)
[2021-09-27] MEDS: Metoprolol Succinate ER 50 MG TAB.ER.24H PO (07:52)
--- NOTE | 2021-09-27 08:05 | PC.NURSE ---
Pt is A&Ox4, LCA, NSR on monitor, states she is feeling better since yesterday. Abd soft, non tedner +BS x4. Call cash within reach
[2021-09-27] MEDS: Anastrozole 1 MG TABLET PO (08:39)
[2021-09-27] MEDS: Insulin Lispro 100 UNIT/ML 3 ML VIAL SUBCUT ×4 (08:39→21:18)
[2021-09-27] MEDS: Potassium Chloride ER 20 MEQ TAB.ER.PRT 40 MEQ PO (08:39)
[2021-09-27] MEDS: cefTRIAXone sodium 1 GM in 0.9 % Sodium Chloride 50 ML IV (10:08)
--- NOTE | 2021-09-27 10:10 | HO.PM.IMPN ---
Subjective Subjective Date of Service: 09/27/21 Review of Systems Follow up BUCK, electrolyte abnormality doing better no nausea or diarrhea today eating Physical Exam Vital Signs: Vital Signs: Last Vital Signs Temp 97.6 F 09/26/21 17:29 Pulse 84 09/27/21 07:47 Resp 11 L 09/27/21 07:47 BP 123/65 09/27/21 07:47 Pulse Ox 97 09/27/21 07:47 BMI result Body Mass Index 28.3 Appearing in no acute distress lung sounds are clear to auscultation heart regular rate rhythm, clear S1, S2 positive bowel sounds, abdomen is soft, nontender neuro patient is alert x3, no focal deficits Objective Data Active Medications Acetaminophen (Acetaminophen 325 Mg Tablet) 650 mg PO Q6H PRN PRN Reason: Pain, Mild (Pain Scale 1-3) Amlodipine Besylate (Amlodipine Besylate 10 Mg Tablet) 10 mg PO DAILY [facility]; Protocol Last Admin: 09/27/21 07:52 Dose: 10 mg Documented by: TANK Anastrozole (Anastrozole 1 Mg Tablet) 1 mg PO DAILY [facility] Last Admin: 09/27/21 08:39 Dose: 1 mg Documented by: TANK Atorvastatin Calcium (Atorvastatin Calcium 80 Mg Tablet) 80 mg PO DAILY [facility] Last Admin: 09/27/21 07:52 Dose: 80 mg Documented by: TANK Dextrose (Dextrose 50 % 25 Gm/50 Ml Vial) 25 gm IVPUSH Q15M PRN; Protocol PRN Reason: per Hypoglycemia Standing Ord. Famotidine (Famotidine 20 Mg Tablet) 20 mg PO Q48H [facility] Last Admin: 09/27/21 07:52 Dose: 20 mg Documented by: TANK Glucose (Glucose Gel 15 Gm Gel..Gram.) 15 gm PO Q15M PRN; Protocol PRN Reason: per Hypoglycemia Standing Ord. Heparin Sodium (Porcine) (Heparin Sodium,Porcine 5,000 Unit/Ml Vial) 5,000 unit SUBCUT Q8H [facility] Last Admin: 09/27/21 07:51 Dose: 5,000 unit Documented by: TANK Ceftriaxone Sodium 1 gm/ (Sodium Chloride) 50 mls @ 100 mls/hr IV Q24H [facility] Last Admin: 09/27/21 10:08 Dose: 100 mls/hr Documented by: TANK Sodium Bicarbonate 250 meq/ (Dextrose) 1,250 mls @ 150 mls/hr IV .Q8H20M [facility] Insulin Human Lispro (Insulin Lispro 100 Unit/Ml 3 Ml Vial) 0 unit SUBCUT QIDACHS [facility]; Protocol Last Admin: 09/27/21 08:39 Dose: 2 unit Documented by: TANK Melatonin (Melatonin 3 Mg Tablet) 6 mg PO BEDTIME PRN PRN Reason: Insomnia Metoprolol Succinate (Metoprolol Succinate Er 50 Mg Tab.Er.24h) 50 mg PO DAILY [facility]; Protocol Last Admin: 09/27/21 07:52 Dose: 50 mg Documented by: TANK Multivitamins/Vitamin C (Multivitamin Tablet) 1 tab PO DAILY [facility] Last Admin: 09/27/21 07:52 Dose: 1 tab Documented by: TANK Omeprazole (Omeprazole 20 Mg Capsule.Dr) 20 mg PO DAILY@0630 [facility] Last Admin: 09/27/21 07:52 Dose: 20 mg Documented by: TANK Pharmacy Consult (Consult Rx Perform Med Rec) 1 each MISCELLANE ONCE PRN PRN Reason: Consult order Sodium Chloride (0.9 % Sodium Chloride Flush 3 Ml Syringe) 3 ml IVFLUSH QSHIFT [facility] Last Admin: 09/27/21 07:53 Dose: Not Given Documented by: TANK Non-Admin Reason: IV Running Temazepam (Temazepam 15 Mg Capsule) 15 mg PO BEDTIME PRN PRN Reason: Insomnia Labs CBC & Chem 7: 09/27/21 04:42 09/27/21 04:42 Labs: Laboratory Results - last 24 hr 09/26/21 09/26/21 09/26/21 15:59 15:59 15:59 MCV 86.8 MCH 30.6 MCHC 35.3 H RDW 13.7 Plt Count 172 MPV 9.5 Immature Gran % (Auto) 3.0 H Neut % (Auto) 75.8 H Lymph % (Auto) 9.0 L [place] % (Auto) 11.9 H Eos % (Auto) 0.1 Baso % (Auto) 0.2 Lymph # (Auto) 1.0 L [place] # (Auto) 1.3 H Eos # (Auto) 0.0 Baso # (Auto) 0.0 Abs Immat Gran (auto) 0.32 H Absolute Neuts (auto) 8.1 Absolute Nucleated RBC 0.000 Nucleated RBC % (auto) 0.0 O2 Saturation ABG pH at Pt Temp ABG pCO2 at Pt Temp ABG pO2 at Pt Temp ABG HCO3 ABG Base Excess (Actual) Anion Gap 27 H Estim Creat Clear Calc 5.5 Estimated GFR 5 POC Glucose Random Glucose 152 H Calcium 7.3 L D Total Bilirubin 0.6 Direct Bilirubin 0.2 AST 23 ALT 24 Alkaline Phosphatase 72 Total Protein 7.5 Albumin 4.4 Urine Color Urine Appearance Urine pH Ur Specific [place] Urine Protein Urine Glucose (UA) Urine Ketones Urine Blood Urine Nitrite Ur Leukocyte Esterase Urine RBC Urine WBC Urine WBC Clumps Ur Squamous Epith Cells Urine Bacteria Urine Yeast COVID-19 (ELEAZAR) Negative COVID-19 Clin Com See Note Influenza Type A ([place]TON) Influenza Type B ([place]) Influenza A & B Note 09/26/21 09/26/21 09/26/21 18:21 18:21 20:17 MCV MCH MCHC RDW Plt Count MPV Immature Gran % (Auto) Neut % (Auto) Lymph % (Auto) [place] % (Auto) Eos % (Auto) Baso % (Auto) Lymph # (Auto) [place] # (Auto) Eos # (Auto) Baso # (Auto) Abs Immat Gran (auto) Absolute Neuts (auto) Absolute Nucleated RBC Nucleated RBC % (auto) O2 Saturation 96.0 ABG pH at Pt Temp 7.20 L* ABG pCO2 at Pt Temp 15 L* ABG pO2 at Pt Temp 109 H ABG HCO3 6 L ABG Base Excess (Actual) -19.0 Anion Gap Estim Creat Clear Calc Estimated GFR POC Glucose Random Glucose Calcium Total Bilirubin Direct Bilirubin AST ALT Alkaline Phosphatase Total Protein Albumin Urine Color Urine Appearance Urine pH Ur Specific [place] Urine Protein Urine Glucose (UA) Urine Ketones Urine Blood Urine Nitrite Ur Leukocyte Esterase Urine RBC Urine WBC Urine WBC Clumps Ur Squamous Epith Cells Urine Bacteria Urine Yeast COVID-19 (ELEAZAR) Negative COVID-19 Clin Com See Note Influenza Type A ([place]) Negative Influenza Type B ([place]) Negative Influenza A & B Note See Note 09/26/21 09/26/21 09/27/21 21:11 22:16 01:31 MCV MCH MCHC RDW Plt Count MPV Immature Gran % (Auto) Neut % (Auto) Lymph % (Auto) [place] % (Auto) Eos % (Auto) Baso % (Auto) Lymph # (Auto) [place] # (Auto) Eos # (Auto) Baso # (Auto) Abs Immat Gran (auto) Absolute Neuts (auto) Absolute Nucleated RBC Nucleated RBC % (auto) O2 Saturation ABG pH at Pt Temp ABG pCO2 at Pt Temp ABG pO2 at Pt Temp ABG HCO3 ABG Base Excess (Actual) Anion Gap 28 H 27 H Estim Creat Clear Calc 5.8 5.8 Estimated GFR 5 5 POC Glucose Random Glucose 121 H 205 H Calcium 6.9 L 6.7 L Total Bilirubin Direct Bilirubin AST ALT Alkaline Phosphatase Total Protein Albumin Urine Color YELLOW Urine Appearance CLOUDY Urine pH 5.5 Ur Specific [place] 1.020 Urine Protein 3+ H Urine Glucose (UA) NEG Urine Ketones NEG Urine Blood 3+ H Urine Nitrite NEG Ur Leukocyte Esterase 3+ H Urine RBC 1-4 Urine WBC 15-29 H Urine WBC Clumps NOTED Ur Squamous Epith Cells 3+ Urine Bacteria 3+ Urine Yeast 2+ COVID-19 (ELEAZAR) COVID-19 Clin Com Influenza Type A ([place]TON) Influenza Type B ([place]TON) Influenza A & B Note 09/27/21 09/27/21 09/27/21 04:42 04:42 04:42 MCV 84.2 MCH 30.7 MCHC 36.4 H RDW 13.4 Plt Count 129 L MPV 9.2 L Immature Gran % (Auto) 1.0 H Neut % (Auto) 74.3 H Lymph % (Auto) 10.3 L [place] % (Auto) 14.2 H Eos % (Auto) 0.1 Baso % (Auto) 0.1 Lymph # (Auto) 0.8 L [place] # (Auto) 1.1 Eos # (Auto) 0.0 Baso # (Auto) 0.0 Abs Immat Gran (auto) 0.08 H Absolute Neuts (auto) 5.8 Absolute Nucleated RBC 0.000 Nucleated RBC % (auto) 0.0 O2 Saturation ABG pH at Pt Temp ABG pCO2 at Pt Temp ABG pO2 at Pt Temp ABG HCO3 ABG Base Excess (Actual) Anion Gap 27 H Cancelled Estim Creat Clear Calc 5.7 Cancelled Estimated GFR 5 Cancelled POC Glucose Random Glucose 176 H Cancelled Calcium 6.8 L Cancelled Total Bilirubin Direct Bilirubin AST ALT Alkaline Phosphatase Total Protein Albumin Urine Color Urine Appearance Urine pH Ur Specific [place] Urine Protein Urine Glucose (UA) Urine Ketones Urine Blood Urine Nitrite Ur Leukocyte Esterase Urine RBC Urine WBC Urine WBC Clumps Ur Squamous Epith Cells Urine Bacteria Urine Yeast COVID-19 (ELEAZAR) COVID-19 Clin Com Influenza Type A ([place]TON) Influenza Type B (CL[place]TON) Influenza A & B Note 09/27/21 07:41 MCV MCH MCHC RDW Plt Count MPV Immature Gran % (Auto) Neut % (Auto) Lymph % (Auto) [place] % (Auto) Eos % (Auto) Baso % (Auto) Lymph # (Auto) [place] # (Auto) Eos # (Auto) Baso # (Auto) Abs Immat Gran (auto) Absolute Neuts (auto) Absolute Nucleated RBC Nucleated RBC % (auto) O2 Saturation ABG pH at Pt Temp ABG pCO2 at Pt Temp ABG pO2 at Pt Temp ABG HCO3 ABG Base Excess (Actual) Anion Gap Estim Creat Clear Calc Estimated GFR POC Glucose 172 H Random Glucose Calcium Total Bilirubin Direct Bilirubin AST ALT Alkaline Phosphatase Total Protein Albumin Urine Color Urine Appearance Urine pH Ur Specific [place] Urine Protein Urine Glucose (UA) Urine Ketones Urine Blood Urine Nitrite Ur Leukocyte Esterase Urine RBC Urine WBC Urine WBC Clumps Ur Squamous Epith Cells Urine Bacteria Urine Yeast COVID-19 (ELEAZAR) COVID-19 Clin Com Influenza Type A ([place]) Influenza Type B ([place]) Influenza A & B Note Microbiology Microbiology Results: Microbiology 09/26/21 Unknown Urine Culture - Preliminary Urine clean catch - Urine grimes top Culture too young to evaluate. Assessment and Plan (1) BUCK (acute kidney injury): Status: Acute Plan 86-year-old female with a past history of hypertension, hyperlipidemia, diabetes, CKD, CAD presented to the hospital today with a chief complaint nausea ,vomiting and diarrhea for almost 1 week.? Noted to have BUCK on CKD/metabolic acidosis.? Admitted for further management.? BUCK on CKD with severe metabolic acidosis secondary to diarrhea and vomiting. Diff include viral gastroenteritis precipitated by insensible losses Patient baseline creatinine around 2.5.? Creatinine on presentation is 7.4.? pH of 7.2 and bicarb of 8, 10 Patient received 2 L of normal saline in the ED and subsequently started on sodium bicarb , will give one bolus of 250hr for 4 hours then change back to 150mg/hr as per nephrology feeling better already and eating solid foods History of hypertension Continue home amlodipine/metoprolol History of hyperlipidemia Continue home statin History of diabetes Insulin sliding scale History of breast cancer. Continue home anastrozole DVT prophylaxis Subcu heparin Attending Dr. Rosario Full code Patient requires continued hospitalization For treatment of severe metabolic acidosis secondary to vomiting and diarrhea with IV sodium bicarb, IV fluids and frequent electrolyte monitoring. Quality Stroke Does the patient have a stroke diagnosis?: No VTE Prior VTE?: No VTE Risk Level:: Medical - moderate - high VTE Device Contraindication: Treatment Not Indicated VTE Drug Contraindication: N/A - Med Ordered
[2021-09-27] MEDS: Sodium Bicarbonate 8.4% 150 MEQ in Dextrose 5 % 850 ML 250 MEQ IV (11:11)
[2021-09-27 11:14] VITALS: BP 117/62; PULSE 83; RESP 11; O2SAT 99
--- NOTE | 2021-09-27 11:51 | PC.NURSE ---
Report to Emely in Overflow
[2021-09-27 12:19] VITALS: BP 114/49; PULSE 85; RESP 18; O2SAT 97
[2021-09-27 12:21] LABS: Glucose, Whole Blood 172 mg/dL (60-115)
--- NOTE | 2021-09-27 12:32 | MHC.CM.PN ---
Met with patient in regards to discharge planning. Patient lives with her daughter, ambulates independently and had no services prior to coming to the hospital. No services anticipated to be needed. PCP verified. HCP verified to be on file. IMM explained and signed. Patient received 3 Moderna vaccines. Patient's family will transport her home when medically stable. Continue to monitor for d/c needs.
--- NOTE | 2021-09-27 13:16 | CONS_ITS ---
DATE OF SERVICE: 09/27/2021 REASON FOR CONSULTATION: I was asked to see the patient to assist in evaluation and management of patient's acute kidney injury on chronic kidney disease as reflected by a BUN and creatinine of 120 and 7.25 today on admission, yesterday was 118 and 7.45. Her baseline creatinine ranges in the 2 to 2.5 range over the past several years. She is also noted to have hypokalemia with potassium of 2.9 and anion gap metabolic acidosis with a bicarb of 8 and anion gap of 27 on admission. HISTORY OF PRESENT ILLNESS: In summary, patient is an 86-year-old female with a history of hypertension, hyperlipidemia, diabetes, stage 4 chronic kidney disease, baseline creatinine 2 to 2.5, coronary artery disease, who was admitted to the hospital with nausea, vomiting, and diarrhea for the past 5 days. Apparently, she has grandchildren at home and they recently were sick, although they have gotten better and now she has gotten sick with a GI bug. She admits to poor p.o. intake and decreased urine output over the past week. She denies any chest pain, fever, sweats, or chills. Her medications on admission are listed as including amlodipine, Trulicity, Pepcid, metoprolol, Protonix. ALLERGIES: SHE HAS NO KNOWN DRUG ALLERGIES. MEDICATIONS: Current medications noted in the MAR. She has been getting IV sodium bicarb. SOCIAL HISTORY: She is nonsmoker, nondrinker. No illicit drug use. Denies taking NSAIDs. PHYSICAL EXAMINATION: VITAL SIGNS: Blood pressure 124/64 with a heart rate in the 80s. She is afebrile. HEENT: Head is atraumatic and normocephalic. NECK: Supple. Mucous membranes are dry. There is no JVD. LUNGS: Breath sounds bilaterally diminished at the bases. CARDIAC: Regular rate and rhythm. ABDOMEN: Soft. EXTREMITIES: Show no edema. LABS: As mentioned from today show sodium 134, potassium 2.9, chloride 95, bicarb 15, anion gap 27, BUN 120, creatinine 7.25, blood sugar 176, calcium 6.8, albumin 4.4. Her BUN and creatinine on admission 118 and 7.45. Her previous creatinine from September 14 was 2.56 and as mentioned her creatinine has been in the 2 to 2.5 range going back over the past several years and her BUN typically is in the 35 to 50 range. Hemoglobin 12.2, hematocrit 35.5, white blood cell count 7.9, platelet count 129. Urine studies showed 3+ protein by dipstick. There was some white cells and red cells noted. IMPRESSION: ACUTE KIDNEY INJURY ON CHRONIC KIDNEY DISEASE IN A DIABETIC, ADMITTED WITH 1-WEEK HISTORY OF NAUSEA, VOMITING, DIARRHEA. 1. Acute kidney injury. Clinical presentation most consistent with renal hypoperfusion from dehydration causing the acute kidney injury. This is supported by her clinical presentation and history over the past 5 to 7 days. We would have expected by now the renal function to improve with IV hydration, maybe that we just have not got caught up in terms of giving enough IV fluids. Given the red cells and white cells in the urine does raise the possibility of a renal parenchymal injury process such as an acute glomerulonephritis or acute interstitial nephritis. Obstructive uropathy is always a possibility and we will need to obtain at least a bladder scan if not a get a kidney ultrasound, if her renal function is not improved. I would recommend placing a Santiago and so we get better handle on urine output as we will rehydrate her. 2. Advanced chronic kidney disease, baseline creatinine 2 to 2.5. 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 3. Anion gap metabolic acidosis. This is presumably due to uremia and renal failure. Nonetheless, we will check a lactate level. May need to check ketones as well because she is a diabetic. 4. Hypokalemia. This is multifactorial including the fact that she has been getting IV sodium bicarb. Also dehydration secondary increase in josey with increased urinary potassium excretion despite the fact of the acute kidney injury. SUGGESTIONS: At this time include increase her IV sodium bicarb infusion. Replace her potassium. Place a Santiago. We will send repeat urine studies including urine for sodium, protein, and creatinine. If renal function does not improve over the next 12 hours and tomorrow morning, we will get a full serologies looking for other possible causes for acute kidney injury. We will follow the patient closely with the team. MD GRAY Hemphill/CE / [id number]
[2021-09-27 13:27] LABS: Anion Gap 23 (12-20); Blood Urea Nitrogen 119 mg/dL (9-16); Calcium 6.4 mg/dL (8.4-10.2); Carbon Dioxide 23 mmol/L (22-29); Chloride 90 mmol/L (96-108); Creatinine Clr Calc Pharmacy 6.1; Estimated Glomerular Filt Rate 6; Glucose Random 198 mg/dL (60-115); Potassium 2.5 mmol/L (3.3-5.1); Sodium 133 mmol/L (135-145)
[2021-09-27 16:29] LABS: Anion Gap 23 (12-20); Blood Urea Nitrogen > 125 mg/dL (9-16); Calcium 6.2 mg/dL (8.4-10.2); Carbon Dioxide 20 mmol/L (22-29); Chloride 93 mmol/L (96-108); Creatinine Clr Calc Pharmacy 6.1; Estimated Glomerular Filt Rate 6; Glucose Random 304 mg/dL (60-115); Potassium 3.1 mmol/L (3.3-5.1); Sodium 133 mmol/L (135-145)
[2021-09-27 18:05] LABS: Glucose, Whole Blood 249 mg/dL (60-115)
[2021-09-27 19:24] VITALS: BP 130/61; PULSE 82; RESP 16; O2SAT 96
[2021-09-27 20:42] LABS: Anion Gap 21 (12-20); Calcium 6.1 mg/dL (8.4-10.2); Carbon Dioxide 24 mmol/L (22-29); Chloride 91 mmol/L (96-108); Creatinine Clr Calc Pharmacy 6.4; Estimated Glomerular Filt Rate 6; Glucose Random 261 mg/dL (60-115); Potassium 2.6 mmol/L (3.3-5.1); Sodium 133 mmol/L (135-145)
[2021-09-27 20:53] LABS: Blood Urea Nitrogen 116 mg/dL (9-16)
[2021-09-27 21:06] LABS: Glucose, Whole Blood 257 mg/dL (60-115)
--- NOTE | 2021-09-27 22:08 | PC.NURSE ---
Patient alert and oriented x 3. Patient c/o cramping in hands and body checked K-2.[address] Walker with K level awaiting orders. Will continue to monitor. Brig[facility] [place] notified patient being transferred now.
[2021-09-27] MEDS: 0.9 % Sodium Chloride 1,000 ML 100 ML IVCONT (22:39)
[2021-09-27 23:26] VITALS: BP 112/63; PULSE 83; RESP 18; TEMP 37; O2SAT 92
[2021-09-28 03:19] VITALS: BP 124/61; PULSE 78; RESP 20; TEMP 37.1; O2SAT 95
[2021-09-28] MEDS: Heparin Sodium,Porcine 5,000 UNIT/ML VIAL 5000 UNIT SUBCUT ×3 (06:20→22:07)
[2021-09-28 06:30] LABS: Hematocrit 28.5 % (37.0-47.0); Hemoglobin 10.4 g/dl (12.0-16.0); Mean Corpuscular HGB Conc 36.5 g/dl (31.0-35.0); Mean Corpuscular Hemoglobin 30.5 pg (27.0-33.0); Mean Corpuscular Volume 83.6 fL (80.0-98.0); Mean Platelet Volume 9.6 fL (9.4-12.3); Platelet Count 109 X10*3/uL (160-400); Red Blood Count 3.41 X10*6/uL (4.20-5.50); Red Cell Distribution Width 13.6 % (11.0-16.0); White Blood Count 6.9 X10*3/uL (4.8-10.8)
[2021-09-28 06:53] LABS: Anion Gap 20 (12-20); Blood Urea Nitrogen 121 mg/dL (9-16); Calcium 6.1 mg/dL (8.4-10.2); Carbon Dioxide 25 mmol/L (22-29); Chloride 92 mmol/L (96-108); Creatinine Clr Calc Pharmacy 6.5; Estimated Glomerular Filt Rate 6; Glucose Random 157 mg/dL (60-115); Sodium 135 mmol/L (135-145)
[2021-09-28 07:02] VITALS: BP 135/72; PULSE 79; RESP 18; TEMP 36.2; O2SAT 92
[2021-09-28 07:07] LABS: Potassium 2.4 mmol/L (3.3-5.1)
[2021-09-28 07:07] LABS: Glucose, Whole Blood 151 mg/dL (60-115)
[2021-09-28] MEDS: Insulin Lispro 100 UNIT/ML 3 ML VIAL SUBCUT ×4 (07:36→22:07)
[2021-09-28] MEDS: 0.9 % Sodium Chloride 1,000 ML 100 ML IVCONT ×2 (08:35→17:10)
[2021-09-28] MEDS: Metoprolol Succinate ER 50 MG TAB.ER.24H PO (08:35)
[2021-09-28] MEDS: Anastrozole 1 MG TABLET PO (08:36)
[2021-09-28] MEDS: Potassium Chloride Packet 20 MEQ PACKET 40 MEQ PO (08:36)
[2021-09-28] MEDS: amLODIPine Besylate 10 MG TABLET PO (08:36)
[2021-09-28] MEDS: Atorvastatin Calcium 80 MG TABLET PO (08:36)
[2021-09-28] MEDS: cefTRIAXone sodium 1 GM in 0.9 % Sodium Chloride 50 ML IV (08:39)
[2021-09-28 09:14] LABS: Magnesium 1.7 mg/dL (1.6-2.6)
[2021-09-28] MEDS: Potassium Chloride ER 20 MEQ TAB.ER.PRT 40 MEQ PO ×2 (09:25→17:07)
[2021-09-28] MEDS: Multivitamin TABLET 1 TAB PO (09:26)
--- NOTE | 2021-09-28 10:27 | HO.PM.IMPN ---
Subjective Subjective Date of Service: 09/28/21 Review of Systems Follow up BUCK, electrolyte abnormality tired today no nausea or diarrhea today eating well Physical Exam Vital Signs: Vital Signs: Last Vital Signs Temp 97.1 F 09/28/21 07:02 Pulse 79 09/28/21 07:02 Resp 18 09/28/21 07:02 BP 135/72 09/28/21 07:02 Pulse Ox 92 09/28/21 07:02 BMI result Body Mass Index 28.3 Appearing in no acute distress lung sounds are clear to auscultation heart regular rate rhythm, clear S1, S2 positive bowel sounds, abdomen is soft, nontender neuro patient is alert x3, no focal deficits Objective Data Active Medications Acetaminophen (Acetaminophen 325 Mg Tablet) 650 mg PO Q6H PRN PRN Reason: Pain, Mild (Pain Scale 1-3) Amlodipine Besylate (Amlodipine Besylate 10 Mg Tablet) 10 mg PO DAILY [facility]; Protocol Last Admin: 09/28/21 08:36 Dose: 10 mg Documented by: CARRILLO Anastrozole (Anastrozole 1 Mg Tablet) 1 mg PO DAILY [facility] Last Admin: 09/28/21 08:36 Dose: 1 mg Documented by: CARRILLO Atorvastatin Calcium (Atorvastatin Calcium 80 Mg Tablet) 80 mg PO DAILY [facility] Last Admin: 09/28/21 08:36 Dose: 80 mg Documented by: CARRILLO Dextrose (Dextrose 50 % 25 Gm/50 Ml Vial) 25 gm IVPUSH Q15M PRN; Protocol PRN Reason: per Hypoglycemia Standing Ord. Glucose (Glucose Gel 15 Gm Gel..Gram.) 15 gm PO Q15M PRN; Protocol PRN Reason: per Hypoglycemia Standing Ord. Heparin Sodium (Porcine) (Heparin Sodium,Porcine 5,000 Unit/Ml Vial) 5,000 unit SUBCUT Q8H [facility] Last Admin: 09/28/21 06:20 Dose: 5,000 unit Documented by: THIAGO Ceftriaxone Sodium 1 gm/ (Sodium Chloride) 50 mls @ 100 mls/hr IV Q24H [facility] Last Infusion: 09/28/21 09:27 Dose: 0 mls/hr Documented by: CARRILLO Sodium Chloride (Ns) 1,000 mls @ 100 mls/hr IVCONT .Q10H [facility] Last Admin: 09/28/21 08:35 Dose: 100 mls/hr Documented by: CARRILLO Insulin Human Lispro (Insulin Lispro 100 Unit/Ml 3 Ml Vial) 0 unit SUBCUT QIDACHS [facility]; Protocol Last Admin: 09/28/21 07:36 Dose: 2 unit Documented by: CARRILLO Melatonin (Melatonin 3 Mg Tablet) 6 mg PO BEDTIME PRN PRN Reason: Insomnia Metoprolol Succinate (Metoprolol Succinate Er 50 Mg Tab.Er.24h) 50 mg PO DAILY [facility]; Protocol Last Admin: 09/28/21 08:35 Dose: 50 mg Documented by: CARRILLO Multivitamins/Vitamin C (Multivitamin Tablet) 1 tab PO DAILY [facility] Last Admin: 09/28/21 09:26 Dose: 1 tab Documented by: CARRILLO Pharmacy Consult (Consult Rx Perform Med Rec) 1 each MISCELLANE ONCE PRN PRN Reason: Consult order Sodium Chloride (0.9 % Sodium Chloride Flush 3 Ml Syringe) 3 ml IVFLUSH QSHIFT [facility] Last Admin: 09/28/21 08:43 Dose: Not Given Documented by: CARRILLO Non-Admin Reason: IV Running Temazepam (Temazepam 15 Mg Capsule) 15 mg PO BEDTIME PRN PRN Reason: Insomnia Labs CBC & Chem 7: 09/28/21 06:10 09/28/21 06:10 Labs: Laboratory Results - last 24 hr 09/27/21 09/27/21 09/27/21 12:17 12:36 15:49 MCV MCH MCHC RDW Plt Count MPV Absolute Nucleated RBC Nucleated RBC % (auto) Anion Gap 23 H 23 H Estim Creat Clear Calc 6.1 6.1 Estimated GFR 6 6 POC Glucose 172 H Random Glucose 198 H 304 H Calcium 6.4 L 6.2 L Magnesium 09/27/21 09/27/21 09/27/21 18:00 20:02 21:01 MCV MCH MCHC RDW Plt Count MPV Absolute Nucleated RBC Nucleated RBC % (auto) Anion Gap 21 H Estim Creat Clear Calc 6.4 Estimated GFR 6 POC Glucose 249 H 257 H Random Glucose 261 H Calcium 6.1 L Magnesium 09/28/21 09/28/21 09/28/21 06:10 06:10 07:03 MCV 83.6 MCH 30.5 MCHC 36.5 H RDW 13.6 Plt Count 109 L MPV 9.6 Absolute Nucleated RBC 0.000 Nucleated RBC % (auto) 0.0 Anion Gap 20 Estim Creat Clear Calc 6.5 Estimated GFR 6 POC Glucose 151 H Random Glucose 157 H Calcium 6.1 L Magnesium 1.7 Microbiology Microbiology Results: Microbiology 09/26/21 Unknown Urine Culture - Preliminary Urine clean catch - Urine grimes top Culture too young to evaluate. Assessment and Plan (1) BUCK (acute kidney injury): Status: Acute Plan 86-year-old female with a past history of hypertension, hyperlipidemia, diabetes, CKD, CAD presented to the hospital today with a chief complaint nausea ,vomiting and diarrhea for almost 1 week.? Noted to have BUCK on CKD/metabolic acidosis.? Admitted for further management.? BUCK on CKD with severe metabolic acidosis secondary to diarrhea and vomiting. Diff include viral gastroenteritis precipitated by insensible losses Patient baseline creatinine around 2.5.? Creatinine on presentation is 7.4.? pH of 7.2 and bicarb of 8, 10 Completed sodium bicarb fluids now on NS Renal us neg for obstruction Creat very slowly improving, if improvement is continues at this rate she may require dialysis, discussed with nephro, will wait till Sunday to decide. UTI urine and blood cx pending Continue Rocephin History of hypertension Continue home amlodipine/metoprolol History of hyperlipidemia Continue home statin History of diabetes Insulin sliding scale History of breast cancer. Continue home anastrozole DVT prophylaxis Subcu heparin Attending Dr. Rosario Full code Patient requires continued hospitalization For treatment of BUCK with IV fluids, its possible she may require inpatient dialysis, she also needs frequent electrolyte monitoring. Quality Stroke Does the patient have a stroke diagnosis?: No VTE Prior VTE?: No VTE Risk Level:: Medical - moderate - high VTE Device Contraindication: Treatment Not Indicated VTE Drug Contraindication: N/A - Med Ordered
[2021-09-28 11:01] VITALS: BP 118/61; PULSE 79; RESP 18; TEMP 36.6; O2SAT 92
[2021-09-28 11:05] LABS: Glucose, Whole Blood 183 mg/dL (60-115)
--- NOTE | 2021-09-28 11:19 | PM.PNNEP ---
Subjective Subjective Date of Service: 09/28/21 Principal diagnosis: buck on adv ckd Interval history: Seen and examoned, events noted Physical Exam Vital Signs: Vital Signs: Last Vital Signs Temp 97.8 F 09/28/21 11:01 Pulse 79 09/28/21 11:01 Resp 18 09/28/21 11:01 BP 118/61 09/28/21 11:01 Pulse Ox 92 09/28/21 11:01 BMI result Body Mass Index 28.3 Const: General: no acute distress and tired appearing Chest: Chest palpation & inspection: normal inspection of the chest Resp: Effort & Inspection: normal respiratory effort Auscultation: clear to auscultation bilaterally Cardio: Jugular venous distension: no JVD Extrem: General: Yes no pedal edema Objective Data Labs CBC & Chem 7: 09/28/21 06:10 09/28/21 06:10 Labs: Laboratory Results - last 24 hr 09/27/21 09/27/21 09/27/21 12:17 12:36 15:49 WBC RBC Hgb Hct MCV MCH MCHC RDW Plt Count MPV Absolute Nucleated RBC Nucleated RBC % (auto) Sodium 133 L 133 L Potassium 2.5 L* 3.1 L D Chloride 90 L 93 L Carbon Dioxide 23 20 L Anion Gap 23 H 23 H BUN 119 H > 125 H Creatinine 6.76 H* 6.74 H* Estim Creat Clear Calc 6.1 6.1 Estimated GFR 6 6 POC Glucose 172 H Random Glucose 198 H 304 H Calcium 6.4 L 6.2 L Magnesium 09/27/21 09/27/21 09/27/21 18:00 20:02 21:01 WBC RBC Hgb Hct MCV MCH MCHC RDW Plt Count MPV Absolute Nucleated RBC Nucleated RBC % (auto) Sodium 133 L Potassium 2.6 L Chloride 91 L Carbon Dioxide 24 Anion Gap 21 H BUN 116 H Creatinine 6.44 H* Estim Creat Clear Calc 6.4 Estimated GFR 6 POC Glucose 249 H 257 H Random Glucose 261 H Calcium 6.1 L Magnesium 09/28/21 09/28/21 09/28/21 06:10 06:10 07:03 WBC 6.9 RBC 3.41 L Hgb 10.4 L Hct 28.5 L MCV 83.6 MCH 30.5 MCHC 36.5 H RDW 13.6 Plt Count 109 L MPV 9.6 Absolute Nucleated RBC 0.000 Nucleated RBC % (auto) 0.0 Sodium 135 Potassium 2.4 L* Chloride 92 L Carbon Dioxide 25 Anion Gap 20 BUN 121 H Creatinine 6.26 H* Estim Creat Clear Calc 6.5 Estimated GFR 6 POC Glucose 151 H Random Glucose 157 H Calcium 6.1 L Magnesium 1.7 09/28/21 11:02 WBC RBC Hgb Hct MCV MCH MCHC RDW Plt Count MPV Absolute Nucleated RBC Nucleated RBC % (auto) Sodium Potassium Chloride Carbon Dioxide Anion Gap BUN Creatinine Estim Creat Clear Calc Estimated GFR POC Glucose 183 H Random Glucose Calcium Magnesium Microbiology Microbiology Results: Microbiology 09/27/21 09:02 Blood - Venous Blood Culture - Preliminary No growth after 24 hours. 09/27/21 09:02 Blood - Venous Blood Culture - Preliminary No growth after 24 hours. 09/26/21 Unknown Urine clean catch - Urine grimes top Urine Culture - Preliminary Culture too young to evaluate. Procedures Date of Service Date of Service: 09/28/21 Assessment & Plan Assessment and plan (1) BUCK (acute kidney injury): Status: Acute Plan 1. Non-Oliguric BUCK: c/w multifact ATN likely from ischmic ATN but givenUA abn need tor/o other causes with sero/urine studies as ordered U/S noted: no hydro; R kidney small --ques STEPHEN/IRD 2. 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 AGMA:resolved with IV NaHCO3 4.HypoK: gettingreplaced 5. GI upset: resolved No indication for HD yet and hope for cont renalimprovement so we can avoid HD---I update her son and daughter whowere at the bedside REC: replace K; cont IVF; avoid too low BP; seroand urine studies as ordered Will follow byron with team Time Spent With Patient Time: Total time spent is greater than 50% in coordination of care (as documented) at patient's floor/unit and/or counseling patient: Progress Note: Quality Stroke Does the patient have a stroke diagnosis?: No
[2021-09-28 11:36] LABS: Anion Gap 19 (12-20); Blood Urea Nitrogen 117 mg/dL (9-16); Carbon Dioxide 26 mmol/L (22-29); Chloride 90 mmol/L (96-108); Creatinine Clr Calc Pharmacy 6.5; Estimated Glomerular Filt Rate 6; Glucose Random 202 mg/dL (60-115); Potassium 2.7 mmol/L (3.3-5.1); Sodium 132 mmol/L (135-145)
--- NOTE | 2021-09-28 13:39 | MHC.CM.PN ---
per rounds today pt to be seen by nephro ?needing dialysis
[2021-09-28 15:31] VITALS: BP 127/65; PULSE 75; RESP 15; TEMP 37.2; O2SAT 94
[2021-09-28 16:01] LABS: Glucose, Whole Blood 161 mg/dL (60-115)
[2021-09-28] MEDS: 0.9 % Sodium Chloride Flush 3 ML SYRINGE IVFLUSH ×2 (17:08→22:10)
[2021-09-28 19:08] LABS: Appearance Urine CLEAR; Color Urine YELLOW; Glucose Urine UA 100 MG/DL (NEG); Leukocyte Esterase Urine 2+ (NEG); Nitrite Urine NEG (NEG); Specific Gravity - Urine 1.015 (1.005-1.025); UACC Culture Trigger YES; Urine Blood 2+ (NEG); Urine Ketones NEG (NEG); Urine Protein 2+ MG/DL (NEG-TRACE)
[2021-09-28 19:22] LABS: Bacteria Urine 1+ /LPF; Squamous Epithelial Cell Urine 1+ /LPF
[2021-09-28 19:23] LABS: RBC Urine 0-2 /HPF (0)
[2021-09-28 19:36] LABS: Creatinine Urine 32.63 mg/dL; Total Protein Urine Random 154 mg/dL (<12)
[2021-09-28 19:55] VITALS: BP 119/63; PULSE 85; RESP 14; TEMP 36.3; O2SAT 93
[2021-09-28 20:20] LABS: Glucose, Whole Blood 202 mg/dL (60-115)
[2021-09-28 23:04] LABS: Anion Gap 18 (12-20); Blood Urea Nitrogen 115 mg/dL (9-16); Calcium 5.9 mg/dL (8.4-10.2); Carbon Dioxide 23 mmol/L (22-29); Chloride 94 mmol/L (96-108); Creatinine Clr Calc Pharmacy 6.6; Estimated Glomerular Filt Rate 6; Glucose Random 174 mg/dL (60-115); Potassium 3.3 mmol/L (3.3-5.1); Sodium 132 mmol/L (135-145)
[2021-09-28 23:22] VITALS: BP 127/77; PULSE 83; RESP 18; TEMP 36.8; O2SAT 93
[2021-09-29 03:49] VITALS: BP 130/60; PULSE 73; RESP 16; TEMP 37.2; O2SAT 93
[2021-09-29] MEDS: Heparin Sodium,Porcine 5,000 UNIT/ML VIAL 5000 UNIT SUBCUT ×2 (06:01→15:41)
[2021-09-29] MEDS: 0.9 % Sodium Chloride 1,000 ML 100 ML IVCONT ×2 (06:01→13:05)
[2021-09-29 07:09] VITALS: BP 131/60; PULSE 75; RESP 18; TEMP 37; O2SAT 95
[2021-09-29 07:18] LABS: Glucose, Whole Blood 200 mg/dL (60-115)
[2021-09-29 08:00] LABS: Anion Gap 21 (12-20); Blood Urea Nitrogen 108 mg/dL (9-16); Calcium 5.8 mg/dL (8.4-10.2); Carbon Dioxide 22 mmol/L (22-29); Chloride 96 mmol/L (96-108); Creatinine Clr Calc Pharmacy 6.9; Estimated Glomerular Filt Rate 7; Glucose Random 175 mg/dL (60-115); Potassium 3.1 mmol/L (3.3-5.1); Sodium 136 mmol/L (135-145)
[2021-09-29] MEDS: Anastrozole 1 MG TABLET PO (08:05)
[2021-09-29] MEDS: Atorvastatin Calcium 80 MG TABLET PO (08:05)
[2021-09-29] MEDS: Multivitamin TABLET 1 TAB PO (08:05)
[2021-09-29] MEDS: Insulin Lispro 100 UNIT/ML 3 ML VIAL SUBCUT ×4 (08:05→20:24)
[2021-09-29] MEDS: amLODIPine Besylate 10 MG TABLET PO (08:05)
[2021-09-29] MEDS: cefTRIAXone sodium 1 GM in 0.9 % Sodium Chloride 50 ML IV (08:05)
[2021-09-29 08:11] LABS: ~HepC Num1 0.08 S/CO (0.00-0.79); ~Hepatitis C Antibody Nonreactive (Nonreactive)
[2021-09-29] MEDS: Metoprolol Succinate ER 50 MG TAB.ER.24H PO (08:11)
[2021-09-29 08:15] LABS: HBc Num1 0.06 S/CO (0.00-0.79); Hepatitis B Core Antibody Nonreactive (Nonreactive); Hepatitis B Surface Antigen Negative (Negative); ~Hepatitis B Surface Antibody NONREACTIVE (Nonreactive)
--- NOTE | 2021-09-29 10:24 | PM.PNNEP ---
Subjective Subjective Date of Service: 09/29/21 Principal diagnosis: buck on adv ckd Interval history: Seen and examoned, events noted c/o insomia no tingling Physical Exam Vital Signs: Vital Signs: Last Vital Signs Temp 98.6 F 09/29/21 07:09 Pulse 75 09/29/21 07:09 Resp 18 09/29/21 07:09 BP 131/60 09/29/21 07:09 Pulse Ox 95 09/29/21 07:09 BMI result Body Mass Index 28.3 Const: General: no acute distress and tired appearing Chest: Chest palpation & inspection: normal inspection of the chest Resp: Effort & Inspection: normal respiratory effort Auscultation: clear to auscultation bilaterally Cardio: Jugular venous distension: no JVD Extrem: General: Yes no pedal edema Objective Data Labs CBC & Chem 7: 09/28/21 06:10 09/29/21 06:39 Labs: Laboratory Results - last 24 hr 09/28/21 09/28/21 09/28/21 11:02 11:04 15:57 Sodium 132 L Potassium 2.7 L Chloride 90 L Carbon Dioxide 26 Anion Gap 19 BUN 117 H Creatinine 6.30 H* Estim Creat Clear Calc 6.5 Estimated GFR 6 POC Glucose 183 H 161 H Random Glucose 202 H Calcium 6.0 L* Phosphorus 6.0 H Urine Color Urine Appearance Urine pH Ur Specific [place] Urine Protein Urine Glucose (UA) Urine Ketones Urine Blood Urine Nitrite Ur Leukocyte Esterase Urine RBC Urine WBC Ur Squamous Epith Cells Urine Bacteria U Random Total Protein Ur Random Sodium Urine Creatinine Hep Bs Antigen Hep Bs Antibody Hep B Core Total Ab Hepatitis C Ab (EIA) 09/28/21 09/28/21 09/28/21 18:44 18:44 20:17 Sodium Potassium Chloride Carbon Dioxide Anion Gap BUN Creatinine Estim Creat Clear Calc Estimated GFR POC Glucose 202 H Random Glucose Calcium Phosphorus Urine Color YELLOW Urine Appearance CLEAR Urine pH 6.0 Ur Specific [place] 1.015 Urine Protein 2+ H Urine Glucose (UA) 100 H Urine Ketones NEG Urine Blood 2+ H Urine Nitrite NEG Ur Leukocyte Esterase 2+ H Urine RBC 0-2 Urine WBC 5-9 H Ur Squamous Epith Cells 1+ Urine Bacteria 1+ U Random Total Protein 154 H Ur Random Sodium 68.0 Urine Creatinine 32.63 Hep Bs Antigen Hep Bs Antibody Hep B Core Total Ab Hepatitis C Ab (EIA) 09/28/21 09/29/21 09/29/21 22:12 06:39 06:39 Sodium 132 L 136 Potassium 3.3 D 3.1 L Chloride 94 L 96 Carbon Dioxide 23 22 Anion Gap 18 21 H BUN 115 H 108 H Creatinine 6.25 H* 5.95 H* Estim Creat Clear Calc 6.6 6.9 Estimated GFR 6 7 POC Glucose Random Glucose 174 H 175 H Calcium 5.9 L* 5.8 L* Phosphorus Urine Color Urine Appearance Urine pH Ur Specific [place] Urine Protein Urine Glucose (UA) Urine Ketones Urine Blood Urine Nitrite Ur Leukocyte Esterase Urine RBC Urine WBC Ur Squamous Epith Cells Urine Bacteria U Random Total Protein Ur Random Sodium Urine Creatinine Hep Bs Antigen Negative Hep Bs Antibody NONREACTIVE Hep B Core Total Ab Nonreactive Hepatitis C Ab (EIA) Nonreactive 09/29/21 07:12 Sodium Potassium Chloride Carbon Dioxide Anion Gap BUN Creatinine Estim Creat Clear Calc Estimated GFR POC Glucose 200 H Random Glucose Calcium Phosphorus Urine Color Urine Appearance Urine pH Ur Specific [place] Urine Protein Urine Glucose (UA) Urine Ketones Urine Blood Urine Nitrite Ur Leukocyte Esterase Urine RBC Urine WBC Ur Squamous Epith Cells Urine Bacteria U Random Total Protein Ur Random Sodium Urine Creatinine Hep Bs Antigen Hep Bs Antibody Hep B Core Total Ab Hepatitis C Ab (EIA) Microbiology Microbiology Results: Microbiology 09/26/21 Unknown Urine clean catch - Urine grimes top Urine Culture - Final 09/27/21 09:02 Blood - Venous Blood Culture - Preliminary No growth after 24 hours. 09/27/21 09:02 Blood - Venous Blood Culture - Preliminary No growth after 24 hours. Procedures Date of Service Date of Service: 09/29/21 Assessment & Plan Assessment and plan (1) BUCK (acute kidney injury): Status: Acute Plan 1. Non-Oliguric BUCK: c/w multifact ATN likely from ischmic ATN but given UA abn need tor/o other causes with sero/urine studies as ordered FENa > 1% c/w ATN U/S noted: no hydro; R kidney small --ques STEPHEN/IRD 2. 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 AGMA:resolved with IV NaHCO3 4.HypoK: gettingreplaced 5. GI upset: resolved 6. HypoCa No indication for HD yet and hope for cont renal improvement so we can avoid HD---I update her son and daughter whowere at the bedside REC: po Ca and po calcitriol x 1 ordered for today; replace K; cont IVF; avoid too low BP Will follow byron with team Time Spent With Patient Time: Total time spent is greater than 50% in coordination of care (as documented) at patient's floor/unit and/or counseling patient: Progress Note: Quality Stroke Does the patient have a stroke diagnosis?: No
--- NOTE | 2021-09-29 10:27 | HO.PM.IMPN ---
Subjective Subjective Date of Service: 09/29/21 Interval History: seen and examined this morning follow up for renal failure no further vomiting or diarrhea feeling weak Physical Exam Vital Signs: Vital Signs: Last Vital Signs Temp 98.6 F 09/29/21 07:09 Pulse 75 09/29/21 07:09 Resp 18 09/29/21 07:09 BP 131/60 09/29/21 07:09 Pulse Ox 95 09/29/21 07:09 BMI result Body Mass Index 28.3 Const: General: cooperative, comfortable, no acute distress, alert and awake Nutritional Appearance: average body habitus Orientation/consciousness: patient oriented x3 Resp: Effort & Inspection: normal respiratory effort and able to speak in complete sentences Cardio: Rate: regular rate Heart sounds: Murmur heart sound present GI: Palpation (GI): Soft to palpation and nontender Neuro: General: patient oriented x3 Extrem: Other: no leg edema Objective Data Active Medications Acetaminophen (Acetaminophen 325 Mg Tablet) 650 mg PO Q6H PRN PRN Reason: Pain, Mild (Pain Scale 1-3) Amlodipine Besylate (Amlodipine Besylate 10 Mg Tablet) 10 mg PO DAILY [facility]; Protocol Last Admin: 09/29/21 08:05 Dose: 10 mg Documented by: CARRILLO Anastrozole (Anastrozole 1 Mg Tablet) 1 mg PO DAILY [facility] Last Admin: 09/29/21 08:05 Dose: 1 mg Documented by: CARRILLO Atorvastatin Calcium (Atorvastatin Calcium 80 Mg Tablet) 80 mg PO DAILY [facility] Last Admin: 09/29/21 08:05 Dose: 80 mg Documented by: CARRILLO Calcitriol (Calcitriol 0.25 Mcg Capsule) 0.5 mcg PO ONCE [facility] Calcium Acetate (Calcium Acetate 667 Mg Capsule) 1,334 mg PO TIDWM [facility] Dextrose (Dextrose 50 % 25 Gm/50 Ml Vial) 25 gm IVPUSH Q15M PRN; Protocol PRN Reason: per Hypoglycemia Standing Ord. Glucose (Glucose Gel 15 Gm Gel..Gram.) 15 gm PO Q15M PRN; Protocol PRN Reason: per Hypoglycemia Standing Ord. Heparin Sodium (Porcine) (Heparin Sodium,Porcine 5,000 Unit/Ml Vial) 5,000 unit SUBCUT Q8H [facility] Last Admin: 09/29/21 06:01 Dose: 5,000 unit Documented by: OLYA Ceftriaxone Sodium 1 gm/ (Sodium Chloride) 50 mls @ 100 mls/hr IV Q24H [facility] Last Infusion: 09/29/21 08:45 Dose: 0 mls/hr Documented by: CARRILLO Sodium Chloride (Ns) 1,000 mls @ 100 mls/hr IVCONT .Q10H [facility] Last Admin: 09/29/21 06:01 Dose: 100 mls/hr Documented by: OLYA Insulin Human Lispro (Insulin Lispro 100 Unit/Ml 3 Ml Vial) 0 unit SUBCUT QIDACHS [facility]; Protocol Last Admin: 09/29/21 08:05 Dose: 2 unit Documented by: CARRILLO Melatonin (Melatonin 3 Mg Tablet) 6 mg PO BEDTIME PRN PRN Reason: Insomnia Metoprolol Succinate (Metoprolol Succinate Er 50 Mg Tab.Er.24h) 50 mg PO DAILY [facility]; Protocol Last Admin: 09/29/21 08:11 Dose: 50 mg Documented by: CARRILLO Multivitamins/Vitamin C (Multivitamin Tablet) 1 tab PO DAILY [facility] Last Admin: 09/29/21 08:05 Dose: 1 tab Documented by: CARRILLO Pharmacy Consult (Consult Rx Perform Med Rec) 1 each MISCELLANE ONCE PRN PRN Reason: Consult order Sodium Chloride (0.9 % Sodium Chloride Flush 3 Ml Syringe) 3 ml IVFLUSH QSHIFT [facility] Last Admin: 09/29/21 08:05 Dose: Not Given Documented by: CARRILLO Non-Admin Reason: IV Running Temazepam (Temazepam 15 Mg Capsule) 15 mg PO BEDTIME PRN PRN Reason: Insomnia Labs CBC & Chem 7: 09/28/21 06:10 09/29/21 06:39 Labs: Laboratory Results - last 24 hr 09/28/21 09/28/21 09/28/21 11:02 11:04 15:57 Anion Gap 19 Estim Creat Clear Calc 6.5 Estimated GFR 6 POC Glucose 183 H 161 H Random Glucose 202 H Calcium 6.0 L* Phosphorus 6.0 H Urine Color Urine Appearance Urine pH Ur Specific [place] Urine Protein Urine Glucose (UA) Urine Ketones Urine Blood Urine Nitrite Ur Leukocyte Esterase Urine RBC Urine WBC Ur Squamous Epith Cells Urine Bacteria U Random Total Protein Ur Random Sodium Urine Creatinine Hep Bs Antigen Hep Bs Antibody Hep B Core Total Ab Hepatitis C Ab (EIA) 09/28/21 09/28/21 09/28/21 18:44 18:44 20:17 Anion Gap Estim Creat Clear Calc Estimated GFR POC Glucose 202 H Random Glucose Calcium Phosphorus Urine Color YELLOW Urine Appearance CLEAR Urine pH 6.0 Ur Specific [place] 1.015 Urine Protein 2+ H Urine Glucose (UA) 100 H Urine Ketones NEG Urine Blood 2+ H Urine Nitrite NEG Ur Leukocyte Esterase 2+ H Urine RBC 0-2 Urine WBC 5-9 H Ur Squamous Epith Cells 1+ Urine Bacteria 1+ U Random Total Protein 154 H Ur Random Sodium 68.0 Urine Creatinine 32.63 Hep Bs Antigen Hep Bs Antibody Hep B Core Total Ab Hepatitis C Ab (EIA) 09/28/21 09/29/21 09/29/21 22:12 06:39 06:39 Anion Gap 18 21 H Estim Creat Clear Calc 6.6 6.9 Estimated GFR 6 7 POC Glucose Random Glucose 174 H 175 H Calcium 5.9 L* 5.8 L* Phosphorus Urine Color Urine Appearance Urine pH Ur Specific [place] Urine Protein Urine Glucose (UA) Urine Ketones Urine Blood Urine Nitrite Ur Leukocyte Esterase Urine RBC Urine WBC Ur Squamous Epith Cells Urine Bacteria U Random Total Protein Ur Random Sodium Urine Creatinine Hep Bs Antigen Negative Hep Bs Antibody NONREACTIVE Hep B Core Total Ab Nonreactive Hepatitis C Ab (EIA) Nonreactive 09/29/21 07:12 Anion Gap Estim Creat Clear Calc Estimated GFR POC Glucose 200 H Random Glucose Calcium Phosphorus Urine Color Urine Appearance Urine pH Ur Specific [place] Urine Protein Urine Glucose (UA) Urine Ketones Urine Blood Urine Nitrite Ur Leukocyte Esterase Urine RBC Urine WBC Ur Squamous Epith Cells Urine Bacteria U Random Total Protein Ur Random Sodium Urine Creatinine Hep Bs Antigen Hep Bs Antibody Hep B Core Total Ab Hepatitis C Ab (EIA) Microbiology Microbiology Results: Microbiology 09/26/21 Unknown Urine Culture - Final Urine clean catch - Urine grimes top 09/27/21 09:02 Blood Culture - Preliminary Blood - Venous No growth after 24 hours. 09/27/21 09:02 Blood Culture - Preliminary Blood - Venous No growth after 24 hours. Assessment and Plan (1) [id number] renal failure: Status: Acute Plan This is an 86-year-old female with a past history of hypertension, hyperlipidemia, diabetes, CKD, CAD presented to the hospital today with a chief complaint nausea ,vomiting and diarrhea for almost 1 week.? Noted to have BUCK on CKD/metabolic acidosis.? Admitted for further management.? 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 Creatinine on presentation was 7.4; down to 5.95 today Renal us neg for obstruction Creat improving very slowly with IVF - no indication for HD at this time. d/w nephrology, plan to follow renal function daily. conservative management for now Hypokalemia replace and follow BMP Hypocalcemia replacement ordered nephrology following Thrombocytopenia follow CBC Metabolic acidosis secondary to renal failure resolved with sodium bicarb Nausea and vomiting resolved UTI urine culture growing mixed brandee suggestive of contamination will d/c Rocephin History of hypertension Continue home amlodipine/metoprolol History of hyperlipidemia Continue home statin History of diabetes Insulin sliding scale History of breast cancer. Continue home anastrozole DVT prophylaxis Subcu heparin Attending Dr. Rosario Full code Patient requires continued hospitalization For treatment of BUCK with IV fluids, its possible she may require inpatient dialysis, she also needs frequent electrolyte monitoring. Quality Stroke Does the patient have a stroke diagnosis?: No VTE Prior VTE?: No VTE Risk Level:: Medical - moderate - high VTE Device Contraindication: Treatment Not Indicated VTE Drug Contraindication: N/A - Med Ordered
[2021-09-29] MEDS: calcitrioL 0.25 MCG CAPSULE 0.5 MCG PO (10:40)
[2021-09-29] MEDS: Potassium Chloride ER 20 MEQ TAB.ER.PRT 40 MEQ PO (10:40)
[2021-09-29 11:12] VITALS: BP 118/62; PULSE 76; RESP 18; TEMP 36.3; O2SAT 93
[2021-09-29 11:17] LABS: Glucose, Whole Blood 161 mg/dL (60-115)
[2021-09-29] MEDS: Calcium Acetate 667 MG CAPSULE 1334 MG PO ×2 (11:44→17:11)
[2021-09-29] MEDS: ondansetron HCL 4 MG/2 ML VIAL IVPUSH (13:04)
--- NOTE | 2021-09-29 14:41 | MHC.CM.PN ---
pt receommednding str for pt ..met with pt who is agreeable [facility]so [facility] her first choice
[2021-09-29 15:19] VITALS: BP 106/56; PULSE 79; RESP 17; TEMP 36.5; O2SAT 92
[2021-09-29] MEDS: 0.9 % Sodium Chloride Flush 3 ML SYRINGE IVFLUSH (15:41)
[2021-09-29 15:50] LABS: Glucose, Whole Blood 254 mg/dL (60-115)
[2021-09-29 19:34] VITALS: BP 115/55; PULSE 86; RESP 17; TEMP 36.6; O2SAT 92
[2021-09-29 19:51] LABS: Glucose, Whole Blood 184 mg/dL (60-115)
[2021-09-29] MEDS: traMADoL HCL 50 MG TABLET 25 MG PO (20:24)
[2021-09-29 23:09] VITALS: BP 133/62; PULSE 83; RESP 16; TEMP 36.7; O2SAT 94
[2021-09-30] VITALS (7 sets, daily range): BP systolic 106–134; BP diastolic 57–69; PULSE 76–79; RESP 16–18; TEMP 36.2–37.1; O2SAT 92–96
[2021-09-30] MEDS: 0.9 % Sodium Chloride 1,000 ML 100 ML IVCONT ×2 (00:24→09:50)
[2021-09-30] MEDS: Heparin Sodium,Porcine 5,000 UNIT/ML VIAL 5000 UNIT SUBCUT ×4 (00:24→22:27)
[2021-09-30 06:42] LABS: MANUAL DIFF FLAG NO
[2021-09-30 06:53] LABS: Basophils Percent Auto 0.1 % (0-2); Eosinophils Absolute Auto 0.2 X10*3/uL (0.0-0.4); Hematocrit 30.4 % (37.0-47.0); Hemoglobin 10.2 g/dl (12.0-16.0); Imm Gran Abs Auto 0.05 X10*3/uL (0.00-0.03); Imm Gran Pct Auto 0.6 % (0.0-0.4); Mean Corpuscular HGB Conc 33.6 g/dl (31.0-35.0); Mean Corpuscular Hemoglobin 29.7 pg (27.0-33.0); Mean Corpuscular Volume 88.6 fL (80.0-98.0); Mean Platelet Volume 10.2 fL (9.4-12.3); Monocytes Absolute Auto 1.2 X10*3/uL (0.1-1.2); Monocytes Percent Auto 15.5 % (2-11); Neutrophils Absolute Auto 5.5 x10*3/uL (2.0-8.3); Neutrophils Percent Auto 68.8 % (45-73); Platelet Count 130 X10*3/uL (160-400); Red Blood Count 3.43 X10*6/uL (4.20-5.50); Red Cell Distribution Width 13.6 % (11.0-16.0)
[2021-09-30 07:22] LABS: Glucose, Whole Blood 174 mg/dL (60-115)
[2021-09-30 07:22] LABS: Anion Gap 17 (12-20); Blood Urea Nitrogen 100 mg/dL (9-16); Calcium 6.3 mg/dL (8.4-10.2); Carbon Dioxide 22 mmol/L (22-29); Chloride 99 mmol/L (96-108); Creatinine Clr Calc Pharmacy 7.9; Estimated Glomerular Filt Rate 8; Glucose Random 184 mg/dL (60-115); Potassium 3.3 mmol/L (3.3-5.1); Sodium 135 mmol/L (135-145)
[2021-09-30] MEDS: Insulin Lispro 100 UNIT/ML 3 ML VIAL SUBCUT ×4 (07:30→20:15)
[2021-09-30] MEDS: 0.9 % Sodium Chloride Flush 3 ML SYRINGE IVFLUSH ×2 (07:34→15:34)
[2021-09-30] MEDS: Atorvastatin Calcium 80 MG TABLET PO (07:35)
[2021-09-30] MEDS: Metoprolol Succinate ER 50 MG TAB.ER.24H PO (07:35)
[2021-09-30] MEDS: amLODIPine Besylate 10 MG TABLET PO (07:35)
[2021-09-30] MEDS: Anastrozole 1 MG TABLET PO (07:35)
[2021-09-30] MEDS: Calcium Acetate 667 MG CAPSULE 1334 MG PO ×3 (07:35→16:30)
[2021-09-30] MEDS: Multivitamin TABLET 1 TAB PO (07:35)
[2021-09-30] MEDS: traMADoL HCL 50 MG TABLET 25 MG PO (10:35)
[2021-09-30 11:21] LABS: Glucose, Whole Blood 216 mg/dL (60-115)
--- NOTE | 2021-09-30 11:32 | P.PNIM_ITS ---
Subjective Subjective Date of Service: 09/30/21 Interval History: seen and examined this am reporting some leg pain, she states that her legs are always very tender at baseline no sob, abdominal pain, nausea or vomiting Review of Systems Review of Systems: Yes all other systems are reviewed and are negative Constitutional Constitutional: Denies chills and Denies fever(s) Cardiovascular Cardiovascular: Denies chest pain, Denies palpitations and Denies dyspnea Respiratory Respiratory: Denies cough and Denies dyspnea Gastrointestinal Gastrointestinal: Denies abdominal pain, Denies diarrhea, Denies nausea and Denies vomiting Endocrine Endocrine: Denies palpitations Physical Exam Vital Signs: Vital Signs: Last Vital Signs Temp 97.2 F 09/30/21 11:14 Pulse 76 09/30/21 11:14 Resp 18 09/30/21 11:14 BP 112/58 L 09/30/21 11:14 Pulse Ox 96 09/30/21 11:14 BMI result Body Mass Index 28.3 Const: General: cooperative, comfortable, no acute distress, alert and awake Nutritional Appearance: average body habitus Orientation/consciousness: patient oriented x3 Resp: Effort & Inspection: normal respiratory effort and able to speak in complete sentences Cardio: Rate: regular rate Heart sounds: Murmur heart sound present GI: Palpation (GI): Soft to palpation and nontender Neuro: General: patient oriented x3 Extrem: Other: no leg edema Objective Data Active Medications Acetaminophen (Acetaminophen 325 Mg Tablet) 650 mg PO Q6H PRN PRN Reason: Pain, Mild (Pain Scale 1-3) Amlodipine Besylate (Amlodipine Besylate 10 Mg Tablet) 10 mg PO DAILY [facility]; Pr otocol Last Admin: 09/30/21 07:35 Dose: 10 mg Documented by: HAROLDO Anastrozole (Anastrozole 1 Mg Tablet) 1 mg PO DAILY [facility] Last Admin: 09/30/21 07:35 Dose: 1 mg Documented by: HAROLDO Atorvastatin Calcium (Atorvastatin Calcium 80 Mg Tablet) 80 mg PO DAILY [facility] Last Admin: 09/30/21 07:35 Dose: 80 mg Documented by: HAROLDO Calcitriol (Calcitriol 0.25 Mcg Capsule) 0.5 mcg PO ONCE [facility] Last Admin: 09/29/21 10:40 Dose: 0.5 mcg Documented by: CARRILLO Calcium Acetate (Calcium Acetate 667 Mg Capsule) 1,334 mg PO TIDWM [facility] Last Admin: 09/30/21 07:35 Dose: 1,334 mg Documented by: HAROLDO Dextrose (Dextrose 50 % 25 Gm/50 Ml Vial) 25 gm IVPUSH Q15M PRN; Protocol PRN Reason: per Hypoglycemia Standing Ord. Glucose (Glucose Gel 15 Gm Gel..Gram.) 15 gm PO Q15M PRN; Protocol PRN Reason: per Hypoglycemia Standing Ord. Heparin Sodium (Porcine) (Heparin Sodium,Porcine 5,000 Unit/Ml Vial) 5,000 unit SUBCUT Q8H [facility] Last Admin: 09/30/21 06:37 Dose: 5,000 unit Documented by: OLYA Sodium Chloride (Ns) 1,000 mls @ 100 mls/hr IVCONT .Q10H [facility] Last Admin: 09/30/21 09:50 Dose: 100 mls/hr Documented by: HAROLDO Insulin Human Lispro (Insulin Lispro 100 Unit/Ml 3 Ml Vial) 0 unit SUBCUT QIDACHS [facility]; Protocol Last Admin: 09/30/21 07:30 Dose: 1 unit Documented by: HAROLDO Melatonin (Melatonin 3 Mg Tablet) 6 mg PO BEDTIME PRN PRN Reason: Insomnia Metoprolol Succinate (Metoprolol Succinate Er 50 Mg Tab.Er.24h) 50 mg PO DAILY [facility]; Protocol Last Admin: 09/30/21 07:35 Dose: 50 mg Documented by: HAROLDO Multivitamins/Vitamin C (Multivitamin Tablet) 1 tab PO DAILY [facility] Last Admin: 09/30/21 07:35 Dose: 1 tab Documented by: HAROLDO Pharmacy Consult (Consult Rx Perform Med Rec) 1 each MISCELLANE ONCE PRN PRN Reason: Consult order Sodium Chloride (0.9 % Sodium Chloride Flush 3 Ml Syringe) 3 ml IVFLUSH QSHIFT [facility] Last Admin: 09/30/21 07:34 Dose: 3 ml Documented by: HAROLDO Temazepam (Temazepam 15 Mg Capsule) 15 mg PO BEDTIME PRN PRN Reason: Insomnia Labs CBC & Chem 7: 09/30/21 06:19 09/30/21 06:19 Labs: Laboratory Results - last 24 hr 09/29/21 09/29/21 09/30/21 15:47 19:47 06:19 MCV MCH MCHC RDW Plt Count MPV Immature Gran % (Auto) Neut % (Auto) Lymph % (Auto) [place] % (Auto) Eos % (Auto) Baso % (Auto) Lymph # (Auto) [place] # (Auto) Eos # (Auto) Baso # (Auto) Abs Immat Gran (auto) Absolute Neuts (auto) Absolute Nucleated RBC Nucleated RBC % (auto) Anion Gap 17 Estim Creat Clear Calc 7.9 Estimated GFR 8 POC Glucose 254 H 184 H Random Glucose 184 H Calcium 6.3 L D 09/30/21 09/30/21 09/30/21 06:19 07:12 11:17 MCV 88.6 D MCH 29.7 MCHC 33.6 RDW 13.6 Plt Count 130 L MPV 10.2 Immature Gran % (Auto) 0.6 H Neut % (Auto) 68.8 Lymph % (Auto) 13.0 L [place] % (Auto) 15.5 H Eos % (Auto) 2.0 Baso % (Auto) 0.1 Lymph # (Auto) 1.0 L [place] # (Auto) 1.2 Eos # (Auto) 0.2 Baso # (Auto) 0.0 Abs Immat Gran (auto) 0.05 H Absolute Neuts (auto) 5.5 Absolute Nucleated RBC 0.000 Nucleated RBC % (auto) 0.0 Anion Gap Estim Creat Clear Calc Estimated GFR POC Glucose 174 H 216 H Random Glucose Calcium Microbiology Microbiology Results: Microbiology 09/27/21 09:02 Blood Culture - Preliminary Blood - Venous No growth after 48 hours. 09/27/21 09:02 Blood Culture - Preliminary Blood - Venous No growth after 48 hours. Assessment and Plan (1) [id number] renal failure: Status: Acute Plan This is an 86-year-old female with a past history of hypertension, hyperlipidemia, diabetes, CKD, CAD presented to the hospital today with a chief complaint nausea ,vomiting and diarrhea for almost 1 week.? Noted to have BUCK on CKD/metabolic acidosis.? Admitted for further management.? BUCK on CKD4 possibly precipitated by GI losses Patient baseline creatinine around 2.5.? Creatinine on presentation was 7.45; down to 5.20 today Renal us neg for obstruction Creat improving very slowly with IVF - no indication for HD at this time. d/w nephrology, plan to follow renal function daily. conservative management for now Hypokalemia improved replace and follow BMP Hypocalcemia replacement ordered nephrology following Thrombocytopenia follow CBC Metabolic acidosis secondary to renal failure resolved with sodium bicarb Nausea and vomiting resolved UTI urine culture growing mixed brandee suggestive of contamination will d/c Rocephin hypertension BP controlled Continue home amlodipine/metoprolol hyperlipidemia Continue home statin History of diabetes trulicity NF, on hold Insulin sliding scale History of breast cancer. Continue home anastrozole gerd continue ppi DVT prophylaxis Subcu heparin Attending Dr. Rosario Full code Patient requires continued hospitalization For treatment of BUCK with IV fluids, its possible she may require inpatient dialysis, she also needs frequent electro lyte monitoring. Quality Stroke Does the patient have a stroke diagnosis?: No VTE Prior VTE?: No VTE Risk Level:: Medical - moderate - high VTE Device Contraindication: Treatment Not Indicated VTE Drug Contraindication: N/A - Med Ordered
--- NOTE | 2021-09-30 11:40 | MHC.CM.PN ---
Per ROUNDS discussion, Patient is not yet medically cleared for dc (? new HD); STR at [place] at [facility] is the goal and CM will continue to follow.
--- NOTE | 2021-09-30 14:27 | PM.PNNEP ---
Subjective Subjective Date of Service: 09/30/21 Principal diagnosis: buck on adv ckd Interval history: Cr improving daily tolerating IVF support no overload Physical Exam Vital Signs: Vital Signs: Last Vital Signs Temp 97.2 F 09/30/21 11:14 Pulse 76 09/30/21 11:14 Resp 18 09/30/21 11:14 BP 112/58 L 09/30/21 11:14 Pulse Ox 96 09/30/21 11:14 BMI result Body Mass Index 28.3 Const: General: no acute distress Chest: Chest palpation & inspection: normal inspection of the chest Resp: Effort & Inspection: normal respiratory effort Auscultation: clear to auscultation bilaterally Cardio: Jugular venous distension: no JVD Extrem: General: Yes no pedal edema Objective Data Labs CBC & Chem 7: 09/30/21 06:19 09/30/21 06:19 Labs: Laboratory Results - last 24 hr 09/29/21 09/29/21 09/30/21 15:47 19:47 06:19 WBC RBC Hgb Hct MCV MCH MCHC RDW Plt Count MPV Immature Gran % (Auto) Neut % (Auto) Lymph % (Auto) [place] % (Auto) Eos % (Auto) Baso % (Auto) Lymph # (Auto) [place] # (Auto) Eos # (Auto) Baso # (Auto) Abs Immat Gran (auto) Absolute Neuts (auto) Absolute Nucleated RBC Nucleated RBC % (auto) Sodium 135 Potassium 3.3 Chloride 99 Carbon Dioxide 22 Anion Gap 17 BUN 100 H Creatinine 5.20 H* Estim Creat Clear Calc 7.9 Estimated GFR 8 POC Glucose 254 H 184 H Random Glucose 184 H Calcium 6.3 L D 09/30/21 09/30/21 09/30/21 06:19 07:12 11:17 WBC 8.0 RBC 3.43 L Hgb 10.2 L Hct 30.4 L MCV 88.6 D MCH 29.7 MCHC 33.6 RDW 13.6 Plt Count 130 L MPV 10.2 Immature Gran % (Auto) 0.6 H Neut % (Auto) 68.8 Lymph % (Auto) 13.0 L [place] % (Auto) 15.5 H Eos % (Auto) 2.0 Baso % (Auto) 0.1 Lymph # (Auto) 1.0 L [place] # (Auto) 1.2 Eos # (Auto) 0.2 Baso # (Auto) 0.0 Abs Immat Gran (auto) 0.05 H Absolute Neuts (auto) 5.5 Absolute Nucleated RBC 0.000 Nucleated RBC % (auto) 0.0 Sodium Potassium Chloride Carbon Dioxide Anion Gap BUN Creatinine Estim Creat Clear Calc Estimated GFR POC Glucose 174 H 216 H Random Glucose Calcium Microbiology Microbiology Results: Microbiology 09/27/21 09:02 Blood - Venous Blood Culture - Preliminary No growth after 48 hours. 09/27/21 09:02 Blood - Venous Blood Culture - Preliminary No growth after 48 hours. 09/26/21 Unknown Urine clean catch - Urine grimes top Urine Culture - Final Procedures Date of Service Date of Service: 09/30/21 Assessment & Plan Assessment and plan (1) BUCK (acute kidney injury): Status: Acute Plan 1. Non-Oliguric BUCK: c/w multifact ATN likely from ischemic ATN. 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 Her U/A did have 2+ RBC however serologies so far bland. No significant proteinuria on quantification. Overall unlikely acute GN. Also, Cr improving daily with IVF support, with strong history of GI losses leading to admission. U/S noted: no hydro. 2. 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 AGMA:resolved with IV NaHCO3 4.HypoK: gettingreplaced 5. GI upset: resolved 6. HypoCa Plan: - c/w IVF suppport - consider LR over 0.95 saline for acidosis risk - f/u ANCA panel - renal panel daily. Time Spent With Patient Time: Total time spent is greater than 50% in coordination of care (as documented) at patient's floor/unit and/or counseling patient: Progress Note: Quality Stroke Does the patient have a stroke diagnosis?: No
[2021-09-30 16:02] LABS: Glucose, Whole Blood 154 mg/dL (60-115)
[2021-09-30 19:50] LABS: Glucose, Whole Blood 234 mg/dL (60-115)
[2021-09-30] MEDS: 0.9 % Sodium Chloride 1,000 ML 70 ML IVCONT (20:35)
[2021-10-01 03:05] VITALS: BP 118/65; PULSE 73; RESP 17; TEMP 37; O2SAT 93
[2021-10-01] MEDS: Heparin Sodium,Porcine 5,000 UNIT/ML VIAL 5000 UNIT SUBCUT ×2 (06:26→17:24)
[2021-10-01 07:03] LABS: Anion Gap 16 (12-20); Blood Urea Nitrogen 87 mg/dL (9-16); Calcium 7.3 mg/dL (8.4-10.2); Carbon Dioxide 22 mmol/L (22-29); Chloride 101 mmol/L (96-108); Creatinine Clr Calc Pharmacy 8.7; Estimated Glomerular Filt Rate 9; Glucose Random 149 mg/dL (60-115); Potassium 3.5 mmol/L (3.3-5.1); Sodium 135 mmol/L (135-145)
[2021-10-01 07:10] LABS: Hematocrit 29.7 % (37.0-47.0); Mean Corpuscular HGB Conc 33.7 g/dl (31.0-35.0); Mean Corpuscular Hemoglobin 30.1 pg (27.0-33.0); Mean Corpuscular Volume 89.5 fL (80.0-98.0); Mean Platelet Volume 10.1 fL (9.4-12.3); Platelet Count 158 X10*3/uL (160-400); Red Blood Count 3.32 X10*6/uL (4.20-5.50); Red Cell Distribution Width 13.6 % (11.0-16.0); White Blood Count 7.8 X10*3/uL (4.8-10.8)
[2021-10-01 07:22] LABS: Glucose, Whole Blood 142 mg/dL (60-115)
[2021-10-01] MEDS: Calcium Acetate 667 MG CAPSULE 1334 MG PO ×3 (07:47→17:25)
[2021-10-01] MEDS: Atorvastatin Calcium 80 MG TABLET PO (07:47)
[2021-10-01] MEDS: Metoprolol Succinate ER 50 MG TAB.ER.24H PO (07:48)
[2021-10-01] MEDS: amLODIPine Besylate 10 MG TABLET PO (07:48)
[2021-10-01] MEDS: Multivitamin TABLET 1 TAB PO (07:48)
[2021-10-01] MEDS: Anastrozole 1 MG TABLET PO (07:49)
[2021-10-01] MEDS: 0.9 % Sodium Chloride Flush 3 ML SYRINGE IVFLUSH (07:54)
[2021-10-01 08:00] VITALS: BP 114/63; PULSE 78; RESP 18; TEMP 36.7; O2SAT 95
[2021-10-01 11:02] VITALS: BP 106/59; PULSE 76; RESP 18; TEMP 36.7; O2SAT 95
--- NOTE | 2021-10-01 11:08 | P.PNIM_ITS ---
Subjective Subjective Date of Service: 10/01/21 Review of Systems Follow up BUCK on CKD Feeling stiff from being in bed good appetite no nausea or diarrhea Physical Exam Vital Signs: Vital Signs: Last Vital Signs Temp 98.1 F 10/01/21 11:02 Pulse 76 10/01/21 11:02 Resp 18 10/01/21 11:02 BP 106/59 L 10/01/21 11:02 Pulse Ox 95 10/01/21 11:02 BMI result Body Mass Index 28.3 Appearing in no acute distress lung sounds are clear to auscultation heart regular rate rhythm, clear S1, S2 positive bowel sounds, abdomen is soft, nontender neuro patient is alert x3, no focal deficits Objective Data Active Medications Acetaminophen (Acetaminophen 325 Mg Tablet) 650 mg PO Q6H PRN PRN Reason: Pain, Mild (Pain Scale 1-3) Amlodipine Besylate (Amlodipine Besylate 10 Mg Tablet) 10 mg PO DAILY [facility]; Protocol Last Admin: 10/01/21 07:48 Dose: 10 mg Documented by: CAREY Anastrozole (Anastrozole 1 Mg Tablet) 1 mg PO DAILY [facility] Last Admin: 10/01/21 07:49 Dose: 1 mg Documented by: CAREY Atorvastatin Calcium (Atorvastatin Calcium 80 Mg Tablet) 80 mg PO DAILY [facility] Last Admin: 10/01/21 07:47 Dose: 80 mg Documented by: CAREY Calcitriol (Calcitriol 0.25 Mcg Capsule) 0.5 mcg PO ONCE [facility] Last Admin: 09/29/21 10:40 Dose: 0.5 mcg Documented by: CARRILLO Calcium Acetate (Calcium Acetate 667 Mg Capsule) 1,334 mg PO TIDWM [facility] Last Admin: 10/01/21 07:47 Dose: 1,334 mg Documented by: CAREY Dextrose (Dextrose 50 % 25 Gm/50 Ml Vial) 25 gm IVPUSH Q15M PRN; Protocol PRN Reason: per Hypoglycemia Standing Ord. Glucose (Glucose Gel 15 Gm Gel..Gram.) 15 gm PO Q15M PRN; Protocol PRN Reason: per Hypoglycemia Standing Ord. Heparin Sodium (Porcine) (Heparin Sodium,Porcine 5,000 Unit/Ml Vial) 5,000 unit SUBCUT Q8H [facility] Last Admin: 10/01/21 06:26 Dose: 5,000 unit Documented by: NEGRA Insulin Human Lispro (Insulin Lispro 100 Unit/Ml 3 Ml Vial) 0 unit SUBCUT QIDACHS [facility]; Protocol Last Admin: 10/01/21 07:55 Dose: Not Given Documented by: CAREY Non-Admin Reason: No Insulin Coverage Melatonin (Melatonin 3 Mg Tablet) 6 mg PO BEDTIME PRN PRN Reason: Insomnia Metoprolol Succinate (Metoprolol Succinate Er 50 Mg Tab.Er.24h) 50 mg PO DAILY [facility]; Protocol Last Admin: 10/01/21 07:48 Dose: 50 mg Documented by: CAREY Multivitamins/Vitamin C (Multivitamin Tablet) 1 tab PO DAILY [facility] Last Admin: 10/01/21 07:48 Dose: 1 tab Documented by: CAREY Pharmacy Consult (Consult Rx Perform Med Rec) 1 each MISCELLANE ONCE PRN PRN Reason: Consult order Sodium Chloride (0.9 % Sodium Chloride Flush 3 Ml Syringe) 3 ml IVFLUSH QSHIFT [facility] Last Admin: 10/01/21 07:54 Dose: 3 ml Documented by: CAREY Temazepam (Temazepam 15 Mg Capsule) 15 mg PO BEDTIME PRN PRN Reason: Insomnia Labs CBC & Chem 7: 10/01/21 06:31 10/01/21 06:31 Labs: Laboratory Results - last 24 hr 09/30/21 09/30/21 09/30/21 11:17 15:59 19:47 MCV MCH MCHC RDW Plt Count MPV Absolute Nucleated RBC Nucleated RBC % (auto) Anion Gap Estim Creat Clear Calc Estimated GFR POC Glucose 216 H 154 H 234 H Random Glucose Calcium 10/01/21 10/01/21 10/01/21 06:31 06:31 07:16 MCV 89.5 MCH 30.1 MCHC 33.7 RDW 13.6 Plt Count 158 L MPV 10.1 Absolute Nucleated RBC 0.000 Nucleated RBC % (auto) 0.0 Anion Gap 16 Estim Creat Clear Calc 8.7 Estimated GFR 9 POC Glucose 142 H Random Glucose 149 H Calcium 7.3 L D Assessment and Plan (1) [id number] renal failure: Status: Acute Plan This is an 86-year-old female with a past history of hypertension, hyperlipidemia, diabetes, CKD, CAD presented to the hospital today with a chief complaint nausea ,vomiting and diarrhea for almost 1 week.? Noted to have BUCK on CKD/metabolic acidosis.? Admitted for further management.? BUCK on CKD4. Slowly trending down possibly precipitated by GI losses Patient baseline creatinine around 2.5.? Creatinine on presentation was 7.45; down to 5.20 today Renal us neg for obstruction no indication for HD at this time. LR d/w nephrology, plan to follow renal function daily. conservative management for now Hypokalemia improved replace and follow BMP Hypocalcemia replacement ordered nephrology following Thrombocytopenia follow CBC Metabolic acidosis secondary to renal failure resolved with sodium bicarb Nausea and vomiting resolved UTI urine culture growing mixed brandee suggestive of contamination will d/c Rocephin hypertension BP controlled Continue home amlodipine/metoprolol hyperlipidemia Continue home statin [facility], on hold Insulin sliding scale History of breast cancer. Continue home anastrozole gerd continue ppi DVT prophylaxis Subcu heparin Attending Dr. uGnderson Full code Patient requires continued hospitalization For treatment of BUCK with IV fluids, its possible she may require inpatient dialysis, she also needs frequent electrolyte monitoring. Quality Stroke Does the patient have a stroke diagnosis?: No VTE Prior VTE?: No VTE Risk Level:: Medical - moderate - high VTE Device Contraindication: Treatment Not Indicated VTE Drug Contraindication: N/A - Med Ordered
[2021-10-01 11:49] LABS: Glucose, Whole Blood 255 mg/dL (60-115)
[2021-10-01] MEDS: Acetaminophen 325 MG TABLET 650 MG PO ×2 (12:01→20:38)
[2021-10-01] MEDS: Insulin Lispro 100 UNIT/ML 3 ML VIAL SUBCUT ×3 (12:03→20:39)
[2021-10-01] MEDS: Lactated Ringers 1,000 ML 100 ML IVCONT (13:01)
--- NOTE | 2021-10-01 14:14 | PM.PNNEP ---
Subjective Subjective Date of Service: 10/01/21 Principal diagnosis: buck on adv ckd Interval history: no acute events Physical Exam Vital Signs: Vital Signs: Last Vital Signs Temp 98.1 F 10/01/21 11:02 Pulse 76 10/01/21 11:02 Resp 18 10/01/21 11:02 BP 106/59 L 10/01/21 11:02 Pulse Ox 95 10/01/21 11:02 BMI result Body Mass Index 28.3 Const: General: no acute distress Chest: Chest palpation & inspection: normal inspection of the chest Resp: Effort & Inspection: normal respiratory effort Auscultation: clear to auscultation bilaterally Cardio: Jugular venous distension: no JVD Extrem: General: Yes no pedal edema Objective Data Labs CBC & Chem 7: 10/01/21 06:31 10/01/21 06:31 Labs: Laboratory Results - last 24 hr 09/30/21 09/30/21 10/01/21 15:59 19:47 06:31 WBC 7.8 RBC 3.32 L Hgb 10.0 L Hct 29.7 L MCV 89.5 MCH 30.1 MCHC 33.7 RDW 13.6 Plt Count 158 L MPV 10.1 Absolute Nucleated RBC 0.000 Nucleated RBC % (auto) 0.0 Sodium Potassium Chloride Carbon Dioxide Anion Gap BUN Creatinine Estim Creat Clear Calc Estimated GFR POC Glucose 154 H 234 H Random Glucose Calcium 10/01/21 10/01/21 10/01/21 06:31 07:16 11:13 WBC RBC Hgb Hct MCV MCH MCHC RDW Plt Count MPV Absolute Nucleated RBC Nucleated RBC % (auto) Sodium 135 Potassium 3.5 Chloride 101 Carbon Dioxide 22 Anion Gap 16 BUN 87 H Creatinine 4.75 H* Estim Creat Clear Calc 8.7 Estimated GFR 9 POC Glucose 142 H 255 H Random Glucose 149 H Calcium 7.3 L D Microbiology Microbiology Results: Microbiology 09/27/21 09:02 Blood - Venous Blood Culture - Preliminary No growth after 48 hours. 09/27/21 09:02 Blood - Venous Blood Culture - Preliminary No growth after 48 hours. 09/26/21 Unknown Urine clean catch - Urine grimes top Urine Culture - Final Procedures Date of Service Date of Service: 10/01/21 Assessment & Plan Assessment and plan (1) BUCK (acute kidney injury): Status: Acute Plan 1. Non-Oliguric BUCK: c/w multifact ATN likely from ischemic ATN. Cr improving 5.2 -> 4.7. 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 Her U/A did have 2+ RBC however serologies so far bland. No significant proteinuria on quantification. Overall unlikely acute GN. U/S noted: no hydro. 2. 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 AGMA:resolved with IV NaHCO3 4.HypoK: resolved 5. GI upset: resolved 6. HypoCa Plan: - c/w IVF suppport - Appreciate change to LR. - f/u ANCA panel - renal panel daily. Time Spent With Patient Time: Total time spent is greater than 50% in coordination of care (as documented) at patient's floor/unit and/or counseling patient: Progress Note: Quality Stroke Does the patient have a stroke diagnosis?: No
[2021-10-01 15:44] VITALS: BP 115/66; PULSE 79; RESP 19; TEMP 36.6; O2SAT 94
[2021-10-01 16:04] LABS: Glucose, Whole Blood 199 mg/dL (60-115)
[2021-10-01 19:22] VITALS: BP 112/66; PULSE 80; RESP 18; TEMP 36.4; O2SAT 94
[2021-10-01 20:20] LABS: Glucose, Whole Blood 261 mg/dL (60-115)
[2021-10-01] MEDS: Temazepam 15 MG CAPSULE PO (20:38)
[2021-10-01 23:23] VITALS: BP 102/68; PULSE 80; RESP 20; TEMP 36.7; O2SAT 94
[2021-10-02] MEDS: Heparin Sodium,Porcine 5,000 UNIT/ML VIAL 5000 UNIT SUBCUT ×4 (00:17→23:49)
[2021-10-02] MEDS: Lactated Ringers 1,000 ML 100 ML IVCONT ×2 (00:17→23:49)
[2021-10-02 03:07] VITALS: BP 143/67; PULSE 82; RESP 18; TEMP 37.1; O2SAT 95
[2021-10-02 07:16] VITALS: BP 139/65; PULSE 82; RESP 17; TEMP 37.1; O2SAT 95
[2021-10-02 07:23] LABS: Anion Gap 17 (12-20); Blood Urea Nitrogen 84 mg/dL (9-16); Calcium 8.1 mg/dL (8.4-10.2); Carbon Dioxide 23 mmol/L (22-29); Chloride 101 mmol/L (96-108); Creatinine Clr Calc Pharmacy 9.3; Estimated Glomerular Filt Rate 9; Glucose Random 167 mg/dL (60-115); Potassium 3.9 mmol/L (3.3-5.1); Sodium 137 mmol/L (135-145)
[2021-10-02 07:52] LABS: Glucose, Whole Blood 173 mg/dL (60-115)
[2021-10-02] MEDS: Calcium Acetate 667 MG CAPSULE 1334 MG PO ×3 (07:59→17:06)
[2021-10-02] MEDS: Multivitamin TABLET 1 TAB PO (07:59)
[2021-10-02] MEDS: Atorvastatin Calcium 80 MG TABLET PO (08:00)
[2021-10-02] MEDS: amLODIPine Besylate 10 MG TABLET PO (08:00)
[2021-10-02] MEDS: Metoprolol Succinate ER 50 MG TAB.ER.24H PO (08:00)
[2021-10-02] MEDS: Insulin Lispro 100 UNIT/ML 3 ML VIAL SUBCUT ×4 (08:01→21:17)
[2021-10-02] MEDS: 0.9 % Sodium Chloride Flush 3 ML SYRINGE IVFLUSH ×2 (10:20→21:16)
[2021-10-02] MEDS: Anastrozole 1 MG TABLET PO (10:20)
[2021-10-02] MEDS: Acetaminophen 325 MG TABLET 650 MG PO (10:24)
[2021-10-02 11:18] VITALS: BP 97/60; PULSE 79; RESP 17; TEMP 36.8; O2SAT 96
--- NOTE | 2021-10-02 11:41 | P.PNIM_ITS ---
Subjective Subjective Date of Service: 10/02/21 Review of Systems Follow up BUCK on CKD Feeling stiff from being in bed good appetite no nausea or diarrhea Physical Exam Vital Signs: Vital Signs: Last Vital Signs Temp 98.3 F 10/02/21 11:18 Pulse 79 10/02/21 11:18 Resp 17 10/02/21 11:18 BP 97/60 10/02/21 11:18 Pulse Ox 96 10/02/21 11:18 BMI result Body Mass Index 28.3 Appearing in no acute distress lung sounds are clear to auscultation heart regular rate rhythm, clear S1, S2 positive bowel sounds, abdomen is soft, nontender neuro patient is alert x3, no focal deficits Objective Data Active Medications Acetaminophen (Acetaminophen 325 Mg Tablet) 650 mg PO Q6H PRN PRN Reason: Pain, Mild (Pain Scale 1-3) Last Admin: 10/02/21 10:24 Dose: 650 mg Documented by: CAREY Amlodipine Besylate (Amlodipine Besylate 10 Mg Tablet) 10 mg PO DAILY [facility]; Protocol Last Admin: 10/02/21 08:00 Dose: 10 mg Documented by: CAREY Anastrozole (Anastrozole 1 Mg Tablet) 1 mg PO DAILY [facility] Last Admin: 10/02/21 10:20 Dose: 1 mg Documented by: CAREY Atorvastatin Calcium (Atorvastatin Calcium 80 Mg Tablet) 80 mg PO DAILY [facility] Last Admin: 10/02/21 08:00 Dose: 80 mg Documented by: CAREY Calcitriol (Calcitriol 0.25 Mcg Capsule) 0.5 mcg PO ONCE [facility] Last Admin: 09/29/21 10:40 Dose: 0.5 mcg Documented by: CARRILLO Calcium Acetate (Calcium Acetate 667 Mg Capsule) 1,334 mg PO TIDWM [facility] Last Admin: 10/02/21 07:59 Dose: 1,334 mg Documented by: CAREY Dextrose (Dextrose 50 % 25 Gm/50 Ml Vial) 25 gm IVPUSH Q15M PRN; Protocol PRN Reason: per Hypoglycemia Standing Ord. Glucose (Glucose Gel 15 Gm Gel..Gram.) 15 gm PO Q15M PRN; Protocol PRN Reason: per Hypoglycemia Standing Ord. Heparin Sodium (Porcine) (Heparin Sodium,Porcine 5,000 Unit/Ml Vial) 5,000 unit SUBCUT Q8H [facility] Last Admin: 10/02/21 08:03 Dose: 5,000 unit Documented by: CAREY Lactated Ringer's (Lr) 1,000 mls @ 100 mls/hr IVCONT .Q10H [facility] Last Admin: 10/02/21 10:26 Dose: Not Given Documented by: CAREY Non-Admin Reason: IV Running Insulin Human Lispro (Insulin Lispro 100 Unit/Ml 3 Ml Vial) 0 unit SUBCUT QIDACHS [facility]; Protocol Last Admin: 10/02/21 08:01 Dose: 2 unit Documented by: CAREY Melatonin (Melatonin 3 Mg Tablet) 6 mg PO BEDTIME PRN PRN Reason: Insomnia Metoprolol Succinate (Metoprolol Succinate Er 50 Mg Tab.Er.24h) 50 mg PO DAILY [facility]; Protocol Last Admin: 10/02/21 08:00 Dose: 50 mg Documented by: CAREY Multivitamins/Vitamin C (Multivitamin Tablet) 1 tab PO DAILY [facility] Last Admin: 10/02/21 07:59 Dose: 1 tab Documented by: CAREY Pharmacy Consult (Consult Rx Perform Med Rec) 1 each MISCELLANE ONCE PRN PRN Reason: Consult order Sodium Chloride (0.9 % Sodium Chloride Flush 3 Ml Syringe) 3 ml IVFLUSH QSHIFT [facility] Last Admin: 10/02/21 10:20 Dose: 3 ml Documented by: CAREY Labs CBC & Chem 7: 10/01/21 06:31 10/02/21 06:17 Labs: Laboratory Results - last 24 hr 10/01/21 10/01/21 10/01/21 11:13 15:47 20:16 Anion Gap Estim Creat Clear Calc Estimated GFR POC Glucose 255 H 199 H 261 H Random Glucose Calcium 10/02/21 10/02/21 06:17 07:19 Anion Gap 17 Estim Creat Clear Calc 9.3 Estimated GFR 9 POC Glucose 173 H Random Glucose 167 H Calcium 8.1 L D Microbiology Microbiology Results: Microbiology 09/27/21 09:02 Blood Culture - Final Blood - Venous No growth after 5 days. 09/27/21 09:02 Blood Culture - Final Blood - Venous No growth after 5 days. Assessment and Plan (1) [id number] renal failure: Status: Acute Plan This is an 86-year-old female with a past history of hypertension, hyperlipidemia, diabetes, CKD, CAD presented to the hospital today with a chief complaint nausea ,vomiting and diarrhea for almost 1 week.? Noted to have BUCK on CKD/metabolic acidosis.? Admitted for further management.? BUCK on CKD4. Slowly trending down possibly precipitated by GI losses Patient baseline creatinine around 2.5.? Creatinine on presentation was 7.45; d own to 5.20 today Renal us neg for obstruction no indication for HD at this time. LR d/w nephrology, plan to follow renal function daily. conservative management for now Hypokalemia improved replace and follow BMP Hypocalcemia replacement ordered nephrology following Thrombocytopenia follow CBC Metabolic acidosis secondary to renal failure resolved with sodium bicarb Nausea and vomiting resolved UTI urine culture growing mixed brandee suggestive of contamination will d/c Rocephin hypertension BP controlled Continue home amlodipine/metoprolol hyperlipidemia Continue home statin History of diabetes trulicity NF, on hold Insulin sliding scale History of breast cancer. Continue home anastrozole gerd continue ppi DVT prophylaxis Subcu heparin Attending Dr. Gunderson Full code Patient requires continued hospitalization For treatment of BUCK with IV fluids, she also needs frequent electrolyte monitoring. Quality Stroke Does the patient have a stroke diagnosis?: No VTE Prior VTE?: No VTE Risk Level:: Medical - moderate - high VTE Device Contraindication: Treatment Not Indicated VTE Drug Contraindication: N/A - Med Ordered
[2021-10-02 11:46] LABS: Glucose, Whole Blood 239 mg/dL (60-115)
--- NOTE | 2021-10-02 13:16 | PC.NURSE ---
I came on yesterday and the pt had a reddened area above her red ankle. A photo was sent to the MD. Today the area is worse, photo sent and MD saw the pt.
[2021-10-02] MEDS: oxyCODONE HCl Immed Release 5 MG TABLET PO ×2 (13:22→21:18)
--- NOTE | 2021-10-02 14:36 | P.PNNP_ITS ---
Subjective Subjective Date of Service: 10/02/21 Principal diagnosis: buck on adv ckd Interval history: no acute events Physical Exam Vital Signs: Vital Signs: Last Vital Signs Temp 98.3 F 10/02/21 11:18 Pulse 79 10/02/21 11:18 Resp 17 10/02/21 11:18 BP 97/60 10/02/21 11:18 Pulse Ox 96 10/02/21 11:18 BMI result Body Mass Index 28.3 Const: General: no acute distress and tired appearing Chest: Chest palpation & inspection: normal inspection of the chest Resp: Effort & Inspection: normal respiratory effort Auscultation: clear to auscultation bilaterally Cardio: Jugular venous distension: no JVD Extrem: General: Yes no pedal edema Objective Data Labs CBC & Chem 7: 10/01/21 06:31 10/02/21 06:17 Labs: Laboratory Results - last 24 hr 10/01/21 10/01/21 10/02/21 15:47 20:16 06:17 Sodium 137 Potassium 3.9 Chloride 101 Carbon Dioxide 23 Anion Gap 17 BUN 84 H Creatinine 4.47 H* Estim Creat Clear Calc 9.3 Estimated GFR 9 POC Glucose 199 H 261 H Random Glucose 167 H Calcium 8.1 L D 10/02/21 10/02/21 07:19 11:22 Sodium Potassium Chloride Carbon Dioxide Anion Gap BUN Creatinine Estim Creat Clear Calc Estimated GFR POC Glucose 173 H 239 H Random Glucose Calcium Microbiology Microbiology Results: Microbiology 09/27/21 09:02 Blood - Venous Blood Culture - Final No growth after 5 days. 09/27/21 09:02 Blood - Venous Blood Culture - Final No growth after 5 days. 09/26/21 Unknown Urine clean catch - Urine grimes top Urine Culture - Final Procedures Date of Service Date of Service: 10/02/21 Assessment & Plan Assessment and plan (1) BUCK (acute kidney injury): Status: Acute Plan 1. Non-Oliguric BUCK: c/w multifact ATN likely from ischemic ATN. Cr improving 5.2 -> 4.47. 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 Her U/A did have 2+ RBC however serologies so far bland. No significant proteinuria on quantification. Overall unlikely acute GN. U/S noted: no hydro. 2. 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 AGMA:resolved with IV NaHCO3 4.HypoK: resolved 5. GI upset: resolved 6. HypoCa Plan: - c/w IVF suppport using LR - monitor GI losses - conservative approach for now. No indication for WIRE WELDER Time Spent With Patient Time: Total time spent is greater than 50% in coordination of care (as documented) at patient's floor/unit and/or counseling patient: Progress Note: Quality Stroke Does the patient have a stroke diagnosis?: No
[2021-10-02 15:33] VITALS: BP 97/58; PULSE 74; RESP 16; TEMP 36.7; O2SAT 92
[2021-10-02 16:24] LABS: Glucose, Whole Blood 163 mg/dL (60-115)
[2021-10-02] MEDS: Doxycycline Hyclate 100 MG in 0.9 % Sodium Chloride 250 ML 166.67 MG IV (18:04)
[2021-10-02 20:00] VITALS: BP 134/61; PULSE 78; RESP 16; TEMP 36.7; O2SAT 93
[2021-10-02 20:20] LABS: Glucose, Whole Blood 216 mg/dL (60-115)
[2021-10-02] MEDS: Melatonin 3 MG TABLET 6 MG PO (21:23)
[2021-10-02 23:35] VITALS: BP 103/56; PULSE 75; RESP 18; TEMP 37.1; O2SAT 93
[2021-10-03] VITALS (7 sets, daily range): BP systolic 117–133; BP diastolic 58–76; PULSE 70–85; RESP 14–20; TEMP 36.2–37.2; O2SAT 92–95
[2021-10-03] MEDS: Doxycycline Hyclate 100 MG in 0.9 % Sodium Chloride 250 ML 166.67 MG IV ×2 (05:30→17:32)
[2021-10-03 06:32] LABS: Anion Gap 15 (12-20); Blood Urea Nitrogen 84 mg/dL (9-16); Calcium 8.4 mg/dL (8.4-10.2); Carbon Dioxide 23 mmol/L (22-29); Chloride 102 mmol/L (96-108); Creatinine Clr Calc Pharmacy 9.5; Estimated Glomerular Filt Rate 10; Glucose Random 160 mg/dL (60-115); Potassium 4.3 mmol/L (3.3-5.1); Sodium 136 mmol/L (135-145)
[2021-10-03] MEDS: Heparin Sodium,Porcine 5,000 UNIT/ML VIAL 5000 UNIT SUBCUT ×3 (06:47→23:43)
[2021-10-03 07:20] LABS: Glucose, Whole Blood 160 mg/dL (60-115)
[2021-10-03] MEDS: amLODIPine Besylate 10 MG TABLET PO (07:28)
[2021-10-03] MEDS: Insulin Lispro 100 UNIT/ML 3 ML VIAL SUBCUT ×3 (07:28→21:17)
[2021-10-03] MEDS: Anastrozole 1 MG TABLET PO (07:28)
[2021-10-03] MEDS: Multivitamin TABLET 1 TAB PO (07:29)
[2021-10-03] MEDS: Atorvastatin Calcium 80 MG TABLET PO (07:29)
[2021-10-03] MEDS: 0.9 % Sodium Chloride Flush 3 ML SYRINGE IVFLUSH (07:29)
[2021-10-03] MEDS: Metoprolol Succinate ER 50 MG TAB.ER.24H PO (07:29)
[2021-10-03] MEDS: Calcium Acetate 667 MG CAPSULE 1334 MG PO ×3 (07:29→17:31)
[2021-10-03] MEDS: oxyCODONE HCl Immed Release 5 MG TABLET PO ×3 (09:44→21:18)
--- NOTE | 2021-10-03 09:58 | P.PNIM_ITS ---
Subjective Subjective Date of Service: 10/03/21 Review of Systems Follow up BUCK Feeling down Pain to her LLE from possible cellulitis Physical Exam Vital Signs: Vital Signs: Last Vital Signs Temp 99.0 F 10/03/21 07:46 Pulse 81 10/03/21 08:58 Resp 18 10/03/21 07:46 BP 133/71 10/03/21 08:58 Pulse Ox 93 10/03/21 08:58 BMI result Body Mass Index 28.3 Appearing in no acute distress lung sounds are clear to auscultation heart regular rate rhythm, clear S1, S2 positive bowel sounds, abdomen is soft, nontender neuro patient is alert x3, no focal deficits Left medial lower ext with erythema and pain on palpation, no drainage or open wound noted Objective Data Active Medications Acetaminophen (Acetaminophen 325 Mg Tablet) 650 mg PO Q6H PRN PRN Reason: Pain, Mild (Pain Scale 1-3) Last Admin: 10/02/21 10:24 Dose: 650 mg Documented by: CAREY Amlodipine Besylate (Amlodipine Besylate 10 Mg Tablet) 10 mg PO DAILY [facility]; Protocol Last Admin: 10/03/21 07:28 Dose: 10 mg Documented by: HAROLDO Anastrozole (Anastrozole 1 Mg Tablet) 1 mg PO DAILY [facility] Last Admin: 10/03/21 07:28 Dose: 1 mg Documented by: HAROLDO Atorvastatin Calcium (Atorvastatin Calcium 80 Mg Tablet) 80 mg PO DAILY [facility] Last Admin: 10/03/21 07:29 Dose: 80 mg Documented by: HAROLDO Calcitriol (Calcitriol 0.25 Mcg Capsule) 0.5 mcg PO ONCE [facility] Last Admin: 09/29/21 10:40 Dose: 0.5 mcg Documented by: CARRILLO Calcium Acetate (Calcium Acetate 667 Mg Capsule) 1,334 mg PO TIDWM [facility] Last Admin: 10/03/21 07:29 Dose: 1,334 mg Documented by: HAROLDO Dextrose (Dextrose 50 % 25 Gm/50 Ml Vial) 25 gm IVPUSH Q15M PRN; Protocol PRN Reason: per Hypoglycemia Standing Ord. Glucose (Glucose Gel 15 Gm Gel..Gram.) 15 gm PO Q15M PRN; Protocol PRN Reason: per Hypoglycemia Standing Ord. Heparin Sodium (Porcine) (Heparin Sodium,Porcine 5,000 Unit/Ml Vial) 5,000 unit SUBCUT Q8H [facility] Last Admin: 10/03/21 06:47 Dose: 5,000 unit Documented by: LUPE Lactated Ringer's (Lr) 1,000 mls @ 100 mls/hr IVCONT .Q10H [facility] Last Admin: 10/02/21 23:49 Dose: 100 mls/hr Documented by: OLYA Doxycycline Hyclate 100 mg/ (Sodium Chloride) 250 mls @ 166.67 mls/hr IV Q12H [facility] Last Infusion: 10/03/21 07:07 Dose: 0 mls/hr Documented by: HAROLDO Insulin Human Lispro (Insulin Lispro 100 Unit/Ml 3 Ml Vial) 0 unit SUBCUT QIDACHS [facility]; Protocol Last Admin: 10/03/21 07:28 Dose: 2 unit Documented by: HAROLDO Melatonin (Melatonin 3 Mg Tablet) 6 mg PO BEDTIME PRN PRN Reason: Insomnia Last Admin: 10/02/21 21:23 Dose: 6 mg Documented by: OLYA Metoprolol Succinate (Metoprolol Succinate Er 50 Mg Tab.Er.24h) 50 mg PO DAILY [facility]; Protocol Last Admin: 10/03/21 07:29 Dose: 50 mg Documented by: HAROLDO Multivitamins/Vitamin C (Multivitamin Tablet) 1 tab PO DAILY [facility] Last Admin: 10/03/21 07:29 Dose: 1 tab Documented by: HAROLDO Oxycodone HCl (Oxycodone Hcl Immed Release 5 Mg Tablet) 5 mg PO Q4H PRN PRN Reason: Pain, Mild (Pain Scale 1-3) Last Admin: 10/03/21 09:44 Dose: 5 mg Documented by: CARRILLO Pharmacy Consult (Consult Rx Perform Med Rec) 1 each MISCELLANE ONCE PRN PRN Reason: Consult order Sodium Chloride (0.9 % Sodium Chloride Flush 3 Ml Syringe) 3 ml IVFLUSH QSHIFT [facility] Last Admin: 10/03/21 07:29 Dose: 3 ml Documented by: HAROLDO Labs CBC & Chem 7: 10/01/21 06:31 10/03/21 05:42 Labs: Laboratory Results - last 24 hr 10/02/21 10/02/21 10/02/21 11:22 16:17 20:01 Anion Gap Estim Creat Clear Calc Estimated GFR POC Glucose 239 H 163 H 216 H Random Glucose Calcium 10/03/21 10/03/21 05:42 07:12 Anion Gap 15 Estim Creat Clear Calc 9.5 Estimated GFR 10 POC Glucose 160 H Random Glucose 160 H Calcium 8.4 Microbiology Microbiology Results: Microbiology 09/27/21 09:02 Blood Culture - Final Blood - Venous No growth after 5 days. 09/27/21 09:02 Blood Culture - Final Blood - Venous No growth after 5 days. Assessment and Plan (1) [id number] renal failure: Status: Acute Plan This is an 86-year-old female with a past history of hypertension, hyperlipidemia, diabetes, CKD, CAD presented to the hospital today with a chief complaint nausea ,vomiting and diarrhea for almost 1 week.? Noted to have BUCK on CKD/metabolic acidosis.? Admitted for further management.? Possible Cellulitis. no fever or leukocytosis erythema pain and warmth on palpation started on doxycycline 2 neg DVT us in the last month check arterial us ID consult BUCK on CKD4. Slowly trending down possibly precipitated by GI losses Patient baseline creatinine around 2.5.? Creatinine on presentation was 7.45 Renal us neg for obstruction no indication for HD at this time. LR continue d/w nephrology, plan to follow renal function daily. conservative management for now Hypokalemia. Resolved replace and follow BMP Hypocalcemia. Resolved replacement ordered nephrology following Thrombocytopenia follow CBC Metabolic acidosis secondary to renal failure resolved with sodium bicarb Nausea and vomiting resolved UTI urine culture growing mixed brandee suggestive of contamination will d/c Rocephin hypertension BP controlled Continue home amlodipine/metoprolol hyperlipidemia Continue home statin [facility], on hold Insulin sliding scale History of breast cancer. Continue home anastrozole gerd continue ppi DVT prophylaxis Subcu heparin Attending Dr. Rosario Full code Patient requires continued hospitalization For treatment of BUCK with IV fluids, she also needs frequent electrolyte monitoring and treatment for cellulitis to LLE Quality Stroke Does the patient have a stroke diagnosis?: No VTE Prior VTE?: No VTE Risk Level:: Medical - moderate - high VTE Device Contraindication: Treatment Not Indicated VTE Drug Contraindication: N/A - Med Ordered
--- NOTE | 2021-10-03 10:24 | PM.PNNEP ---
Subjective Subjective Date of Service: 10/03/21 Principal diagnosis: buck on adv ckd Interval history: Events noted. All recent data reviewed Physical Exam Vital Signs: Vital Signs: Last Vital Signs Temp 99.0 F 10/03/21 07:46 Pulse 81 10/03/21 08:58 Resp 18 10/03/21 07:46 BP 133/71 10/03/21 08:58 Pulse Ox 93 10/03/21 08:58 BMI result Body Mass Index 28.3 Const: General: no acute distress Orientation/consciousness: patient oriented x3 Eyes: EOM: EOMs intact bilaterally Neck: Neck: Yes supple Resp: Auscultation: diminished lung sounds Cardio: Rate: regular rate GI: Palpation (GI): Soft to palpation Neuro: General: patient oriented x3 and moves all extremities Objective Data Labs CBC & Chem 7: 10/01/21 06:31 10/03/21 05:42 Labs: Laboratory Results - last 24 hr 10/02/21 10/02/21 10/02/21 11:22 16:17 20:01 Sodium Potassium Chloride Carbon Dioxide Anion Gap BUN Creatinine Estim Creat Clear Calc Estimated GFR POC Glucose 239 H 163 H 216 H Random Glucose Calcium 10/03/21 10/03/21 05:42 07:12 Sodium 136 Potassium 4.3 Chloride 102 Carbon Dioxide 23 Anion Gap 15 BUN 84 H Creatinine 4.33 H* Estim Creat Clear Calc 9.5 Estimated GFR 10 POC Glucose 160 H Random Glucose 160 H Calcium 8.4 Microbiology Microbiology Results: Microbiology 09/27/21 09:02 Blood - Venous Blood Culture - Final No growth after 5 days. 09/27/21 09:02 Blood - Venous Blood Culture - Final No growth after 5 days. 09/26/21 Unknown Urine clean catch - Urine grimes top Urine Culture - Final Procedures Date of Service Date of Service: 10/03/21 Assessment & Plan Assessment and plan (1) BUCK (acute kidney injury): Status: Acute Assessment and Plan: Non-Oliguric BUCK: c/w multifact ATN likely from ischemic ATN. Cr improved U/S noted: no hydro. CKD 4: bsl Scr 2.0-2.5; DN/HTN renal disease Could discontinue IV fluids; C/W rest of current supp care No indication for renal replacement; Shall closely F/U Time Spent With Patient Time: Total time spent is greater than 50% in coordination of care (as documented) at patient's floor/unit and/or counseling patient: Progress Note: Quality Stroke Does the patient have a stroke diagnosis?: No
[2021-10-03 11:26] LABS: Glucose, Whole Blood 187 mg/dL (60-115)
--- NOTE | 2021-10-03 12:38 | MHC.CM.PN ---
Per ROUNDS discussion, Patient's Creatinine is improving slowly; Patient is not yet medically cleared for dc. STR is the goal and CM will continue to follow.
[2021-10-03] MEDS: Lactated Ringers 1,000 ML 100 ML IVCONT (13:44)
--- NOTE | 2021-10-03 15:41 | W.PM.IDCN ---
History of Present Illness Data of Consult Service Date: 10/03/21 Requesting physician: Alyssa Carl Primary Care Provider: Ene Menon NP HPI Reason for consult: left lower extremity redness She presents with LLE redness laterally and discomfort. She has no fever or chills. She also has nausea and diarrhea as do grandsons. Review of Systems Review of Systems: Yes all other systems are reviewed and are negative PMFSH Past Medical History Medical History (Updated 10/03/21 @ 15:44 by Jennifer Frausto MD) Cellulitis CKD (chronic kidney disease) Coronary artery disease Diabetes Hypertension Family History Family History Father Lung cancer Stomach ulcer Sister Colon cancer, Onset Age: 80 Breast cancer Heart disease HTN (hypertension) Mother Cirrhosis of liver Family/Other Stomach ulcer Surgical History Surgical History Hx of cardiac catheterization (~05/2020) Hx of colonoscopy Hx of endoscopy Social History Social History Household Members: Children Housing: House Do you presently have visiting nurse or other home services: No Alcohol intake: never Patient Tobacco Use Status: Former Tobacco user Advance Directives Date on File: 09/27/21 service: No Current occupational status: retired [employer] Allergies Allergy/AdvReac Type Severity Reaction Status Date / Time No Known Allergies Allergy Verified 05/06/20 08:59 [No Known Allergies*] Active Medications: Current Medications Acetaminophen (Acetaminophen 325 Mg Tablet) 650 mg PO Q6H PRN PRN Reason: Pain, Mild (Pain Scale 1-3) Last Admin: 10/02/21 10:24 Dose: 650 mg Documented by: Amlodipine Besylate (Amlodipine Besylate 10 Mg Tablet) 10 mg PO DAILY [facility]; Protocol Last Admin: 10/03/21 07:28 Dose: 10 mg Documented by: Anastrozole (Anastrozole 1 Mg Tablet) 1 mg PO DAILY [facility] Last Admin: 10/03/21 07:28 Dose: 1 mg Documented by: Atorvastatin Calcium (Atorvastatin Calcium 80 Mg Tablet) 80 mg PO DAILY [facility] Last Admin: 10/03/21 07:29 Dose: 80 mg Documented by: Calcitriol (Calcitriol 0.25 Mcg Capsule) 0.5 mcg PO ONCE [facility] Last Admin: 09/29/21 10:40 Dose: 0.5 mcg Documented by: Calcium Acetate (Calcium Acetate 667 Mg Capsule) 1,334 mg PO TIDWM [facility] Last Admin: 10/03/21 11:53 Dose: 1,334 mg Documented by: Dextrose (Dextrose 50 % 25 Gm/50 Ml Vial) 25 gm IVPUSH Q15M PRN; Protocol PRN Reason: per Hypoglycemia Standing Ord. Glucose (Glucose Gel 15 Gm Gel..Gram.) 15 gm PO Q15M PRN; Protocol PRN Reason: per Hypoglycemia Standing Ord. Heparin Sodium (Porcine) (Heparin Sodium,Porcine 5,000 Unit/Ml Vial) 5,000 unit SUBCUT Q8H [facility] Last Admin: 10/03/21 13:45 Dose: 5,000 unit Documented by: Lactated Ringer's (Lr) 1,000 mls @ 100 mls/hr IVCONT .Q10H [facility] Last Admin: 10/03/21 13:44 Dose: 100 mls/hr Documented by: Doxycycline Hyclate 100 mg/ (Sodium Chloride) 250 mls @ 166.67 mls/hr IV Q12H [facility] Last Infusion: 10/03/21 07:07 Dose: Infused Documented by: Insulin Human Lispro (Insulin Lispro 100 Unit/Ml 3 Ml Vial) 0 unit SUBCUT QIDACHS [facility]; Protocol Last Admin: 10/03/21 11:53 Dose: 2 unit Documented by: Melatonin (Melatonin 3 Mg Tablet) 6 mg PO BEDTIME PRN PRN Reason: Insomnia Last Admin: 10/02/21 21:23 Dose: 6 mg Documented by: Metoprolol Succinate (Metoprolol Succinate Er 50 Mg Tab.Er.24h) 50 mg PO DAILY [facility]; Protocol Last Admin: 10/03/21 07:29 Dose: 50 mg Documented by: Multivitamins/Vitamin C (Multivitamin Tablet) 1 tab PO DAILY [facility] Last Admin: 10/03/21 07:29 Dose: 1 tab Documented by: Oxycodone HCl (Oxycodone Hcl Immed Release 5 Mg Tablet) 5 mg PO Q4H PRN PRN Reason: Pain, Mild (Pain Scale 1-3) Last Admin: 10/03/21 14:00 Dose: 5 mg Documented by: Pharmacy Consult (Consult Rx Perform Med Rec) 1 each MISCELLANE ONCE PRN PRN Reason: Consult order Sodium Chloride (0.9 % Sodium Chloride Flush 3 Ml Syringe) 3 ml IVFLUSH QSHIFT [facility] Last Admin: 10/03/21 07:29 Dose: 3 ml Documented by: Home Medications Medication Instructions Recorded Confirmed Last Taken Type amlodipine 10 mg tablet 10 mg PO DAILY 09/26/21 09/26/21 Unknown History anastrozole 1 mg tablet 1 mg PO DAILY 09/26/21 09/26/21 Unknown History ascorbic acid (vitamin C) 500 mg mg PO 09/26/21 Unknown History capsule cholecalciferol (vitamin D3) 50 mcg PO DAILY 09/26/21 Unknown History mcg (2,000 unit) capsule (Vitamin D3) dulaglutide 1.5 mg/0.5 mL 1.5 mg SUBCUT TU@1000 09/26/21 09/26/21 Unknown History subcutaneous pen injector (Trulicity) famotidine 20 mg tablet 20 mg PO DAILY 09/26/21 09/26/21 Unknown History metoprolol succinate 50 mg 50 mg PO DAILY 09/26/21 09/26/21 Unknown History tablet,extended release 24 hr pantoprazole 40 mg tablet,delayed 40 mg PO DAILY 09/26/21 09/26/21 Unknown History release vitamin B complex 1 tab PO DAILY 09/26/21 09/26/21 Unknown History Physical Exam Vital Signs: Vital Signs: Last Vital Signs Temp 97.8 F 10/03/21 15:38 Pulse 70 10/03/21 15:38 Resp 18 10/03/21 15:38 BP 119/62 10/03/21 15:38 Pulse Ox 95 10/03/21 15:38 BMI result Body Mass Index 28.3 Const: General: cooperative HEENT: Head: Yes normal to inspection Mouth: Normal oral and palatal mucosa present Resp: Effort & Inspection: normal respiratory effort Cardio: Rate: regular rate GI: Palpation (GI): Soft to palpation and nontender Extrem: Other: mild LLE erythema Results Labs CBC & Chem 7: 10/01/21 06:31 10/03/21 05:42 Labs: BMP 10/03/21 05:42 Sodium 136 Potassium 4.3 Chloride 102 Carbon Dioxide 23 BUN 84 H Creatinine 4.33 H* Calcium 8.4 Microbiology Microbiology Results: Microbiology 09/27/21 09:02 Blood - Venous Blood Culture - Final No growth after 5 days. 09/27/21 09:02 Blood - Venous Blood Culture - Final No growth after 5 days. 09/26/21 Unknown Urine clean catch - Urine grimes top Urine Culture - Final Assessment and Plan (1) Nausea vomiting and diarrhea: Status: Acute (2) Cellulitis: Status: Acute There is small area leg vasculitis vs cellulitis (staph or strep) It seems to be responding to IV Doxycycline. Plan Po Doxycycline 100 mg bid within next day or two for 10 d total. Steroid cream to area if doesnt continue to improve.
[2021-10-03 15:43] LABS: Myeloperoxidase Antibody <1.0 AI; Proteinase 3 PR3 Antibodies <1.0 AI
[2021-10-03 15:45] LABS: Glucose, Whole Blood 145 mg/dL (60-115)
[2021-10-03 20:33] LABS: Glucose, Whole Blood 170 mg/dL (60-115)
[2021-10-03] MEDS: Melatonin 3 MG TABLET 6 MG PO (21:18)
[2021-10-04] MEDS: Lactated Ringers 1,000 ML 100 ML IVCONT (00:53)
[2021-10-04 03:31] VITALS: BP 146/77; PULSE 78; RESP 20; TEMP 36.9; O2SAT 98
[2021-10-04] MEDS: Doxycycline Hyclate 100 MG in 0.9 % Sodium Chloride 250 ML 166.67 MG IV ×2 (05:33→16:19)
[2021-10-04] MEDS: Heparin Sodium,Porcine 5,000 UNIT/ML VIAL 5000 UNIT SUBCUT ×3 (06:30→21:33)
[2021-10-04 06:54] LABS: Anion Gap 16 (12-20); Blood Urea Nitrogen 72 mg/dL (9-16); Calcium 8.4 mg/dL (8.4-10.2); Carbon Dioxide 23 mmol/L (22-29); Chloride 103 mmol/L (96-108); Creatinine Clr Calc Pharmacy 9.8; Estimated Glomerular Filt Rate 10; Glucose Random 143 mg/dL (60-115); Potassium 4.5 mmol/L (3.3-5.1); Sodium 137 mmol/L (135-145)
[2021-10-04 07:10] VITALS: BP 121/60; PULSE 77; RESP 18; TEMP 37.2; O2SAT 96
[2021-10-04 07:24] LABS: Glucose, Whole Blood 156 mg/dL (60-115)
[2021-10-04] MEDS: Insulin Lispro 100 UNIT/ML 3 ML VIAL SUBCUT ×2 (07:30→21:32)
[2021-10-04] MEDS: Calcium Acetate 667 MG CAPSULE 1334 MG PO ×2 (07:38→11:55)
[2021-10-04] MEDS: 0.9 % Sodium Chloride Flush 3 ML SYRINGE IVFLUSH ×3 (07:38→21:32)
[2021-10-04] MEDS: amLODIPine Besylate 10 MG TABLET PO (07:38)
[2021-10-04] MEDS: Multivitamin TABLET 1 TAB PO (07:39)
[2021-10-04] MEDS: Metoprolol Succinate ER 50 MG TAB.ER.24H PO (07:39)
[2021-10-04] MEDS: Atorvastatin Calcium 80 MG TABLET PO (07:39)
[2021-10-04] MEDS: Anastrozole 1 MG TABLET PO (07:39)
--- NOTE | 2021-10-04 09:04 | HO.PM.IMPN ---
Subjective Subjective Date of Service: 10/04/21 Review of Systems Follow up BUCK Feeling down Pain to her LLE from possible cellulitis Physical Exam Vital Signs: Vital Signs: Last Vital Signs Temp 98.9 F 10/04/21 07:10 Pulse 77 10/04/21 07:10 Resp 18 10/04/21 07:10 BP 121/60 10/04/21 07:10 Pulse Ox 96 10/04/21 07:10 BMI result Body Mass Index 28.3 Appearing in no acute distress lung sounds are clear to auscultation heart regular rate rhythm, clear S1, S2 positive bowel sounds, abdomen is soft, nontender neuro patient is alert x3, no focal deficits Left LE erythema improved 10/03/21 10/04/21 Objective Data Active Medications Acetaminophen (Acetaminophen 325 Mg Tablet) 650 mg PO Q6H PRN PRN Reason: Pain, Mild (Pain Scale 1-3) Last Admin: 10/02/21 10:24 Dose: 650 mg Documented by: CAREY Amlodipine Besylate (Amlodipine Besylate 10 Mg Tablet) 10 mg PO DAILY [facility]; Protocol Last Admin: 10/04/21 07:38 Dose: 10 mg Documented by: HAROLDO Anastrozole (Anastrozole 1 Mg Tablet) 1 mg PO DAILY [facility] Last Admin: 10/04/21 07:39 Dose: 1 mg Documented by: HAROLDO Atorvastatin Calcium (Atorvastatin Calcium 80 Mg Tablet) 80 mg PO DAILY [facility] Last Admin: 10/04/21 07:39 Dose: 80 mg Documented by: HAROLDO Calcitriol (Calcitriol 0.25 Mcg Capsule) 0.5 mcg PO ONCE [facility] Last Admin: 09/29/21 10:40 Dose: 0.5 mcg Documented by: CARRILLO Calcium Acetate (Calcium Acetate 667 Mg Capsule) 1,334 mg PO TIDWM [facility] Last Admin: 10/04/21 07:38 Dose: 1,334 mg Documented by: HAROLDO Dextrose (Dextrose 50 % 25 Gm/50 Ml Vial) 25 gm IVPUSH Q15M PRN; Protocol PRN Reason: per Hypoglycemia Standing Ord. Glucose (Glucose Gel 15 Gm Gel..Gram.) 15 gm PO Q15M PRN; Protocol PRN Reason: per Hypoglycemia Standing Ord. Heparin Sodium (Porcine) (Heparin Sodium,Porcine 5,000 Unit/Ml Vial) 5,000 unit SUBCUT Q8H [facility] Last Admin: 10/04/21 06:30 Dose: 5,000 unit Documented by: LUPE Lactated Ringer's (Lr) 1,000 mls @ 100 mls/hr IVCONT .Q10H [facility] Last Admin: 10/04/21 00:53 Dose: 100 mls/hr Documented by: OLYA Doxycycline Hyclate 100 mg/ (Sodium Chloride) 250 mls @ 166.67 mls/hr IV Q12H [facility] Last Infusion: 10/04/21 07:24 Dose: 0 mls/hr Documented by: HAROLDO Insulin Human Lispro (Insulin Lispro 100 Unit/Ml 3 Ml Vial) 0 unit SUBCUT QIDACHS [facility]; Protocol Last Admin: 10/04/21 07:30 Dose: 2 unit Documented by: HAROLDO Melatonin (Melatonin 3 Mg Tablet) 6 mg PO BEDTIME PRN PRN Reason: Insomnia Last Admin: 10/03/21 21:18 Dose: 6 mg Documented by: OLYA Metoprolol Succinate (Metoprolol Succinate Er 50 Mg Tab.Er.24h) 50 mg PO DAILY [facility]; Protocol Last Admin: 10/04/21 07:39 Dose: 50 mg Documented by: HAROLDO Multivitamins/Vitamin C (Multivitamin Tablet) 1 tab PO DAILY [facility] Last Admin: 10/04/21 07:39 Dose: 1 tab Documented by: HAROLDO Oxycodone HCl (Oxycodone Hcl Immed Release 5 Mg Tablet) 5 mg PO Q4H PRN PRN Reason: Pain, Mild (Pain Scale 1-3) Last Admin: 10/03/21 21:18 Dose: 5 mg Documented by: OLYA Pharmacy Consult (Consult Rx Perform Med Rec) 1 each MISCELLANE ONCE PRN PRN Reason: Consult order Sodium Chloride (0.9 % Sodium Chloride Flush 3 Ml Syringe) 3 ml IVFLUSH QSHIFT [facility] Last Admin: 10/04/21 07:38 Dose: 3 ml Documented by: HAROLDO Labs CBC & Chem 7: 10/01/21 06:31 10/04/21 05:33 Labs: Laboratory Results - last 24 hr 09/26/21 09/26/21 09/27/21 15:59 21:11 01:31 Anion Gap Creatinine 7.45 H* 7.11 H* 7.14 H* Estim Creat Clear Calc Estimated GFR POC Glucose Random Glucose Calcium Proteinase 3 (PR3) Ab Myeloperoxidase Ab 09/27/21 09/27/21 09/27/21 04:42 04:42 12:36 Anion Gap Creatinine 7.25 H* Cancelled 6.76 H* Estim Creat Clear Calc Estimated GFR POC Glucose Random Glucose Calcium Proteinase 3 (PR3) Ab Myeloperoxidase Ab 09/27/21 09/27/21 09/28/21 15:49 20:02 06:10 Anion Gap Creatinine 6.74 H* 6.44 H* 6.26 H* Estim Creat Clear Calc Estimated GFR POC Glucose Random Glucose Calcium Proteinase 3 (PR3) Ab Myeloperoxidase Ab 09/28/21 09/28/21 09/29/21 11:04 22:12 06:39 Anion Gap Creatinine 6.30 H* 6.25 H* Estim Creat Clear Calc Estimated GFR POC Glucose Random Glucose Calcium Proteinase 3 (PR3) Ab <1.0 Myeloperoxidase Ab <1.0 09/29/21 09/30/21 10/01/21 06:39 06:19 06:31 Anion Gap Creatinine 5.95 H* 5.20 H* 4.75 H* Estim Creat Clear Calc Estimated GFR POC Glucose Random Glucose Calcium Proteinase 3 (PR3) Ab Myeloperoxidase Ab 10/02/21 10/03/21 10/03/21 06:17 05:42 11:12 Anion Gap Creatinine 4.47 H* 4.33 H* Estim Creat Clear Calc Estimated GFR POC Glucose 187 H Random Glucose Calcium Proteinase 3 (PR3) Ab Myeloperoxidase Ab 10/03/21 10/03/21 10/04/21 15:39 20:28 05:33 Anion Gap 16 Creatinine 4.21 H* Estim Creat Clear Calc 9.8 Estimated GFR 10 POC Glucose 145 H 170 H Random Glucose 143 H Calcium 8.4 Proteinase 3 (PR3) Ab Myeloperoxidase Ab 10/04/21 07:13 Anion Gap Creatinine Estim Creat Clear Calc Estimated GFR POC Glucose 156 H Random Glucose Calcium Proteinase 3 (PR3) Ab Myeloperoxidase Ab Assessment and Plan (1) Cellulitis: Status: Acute (2) [id number] renal failure: Status: Acute Plan This is an 86-year-old female with a past history of hypertension, hyperlipidemia, diabetes, CKD, CAD presented to the hospital today with a chief complaint nausea ,vomiting and diarrhea for almost 1 week.? Noted to have BUCK on CKD/metabolic acidosis.? Admitted for further management.? Cellulitis. no fever or leukocytosis erythema pain and warmth on palpation started on doxycycline, improving 2 neg DVT us in the last month arterial us showed Increased peak systolic velocities in the common femoral, proximal superficial femoral and profunda femoral arteries suggestive of stenosis/inflow disease, discussed with vascular surgeon, o/p follow appropriate ID consult BUCK on CKD4. Slowly trending down possibly precipitated by GI losses Patient baseline creatinine around 2.5.? Creatinine on presentation was 7.45 Renal us neg for obstruction no indication for HD at this time. LR stopped as per nephrology d/w nephrology, plan to follow renal function daily. conservative management for now Mental health seems very down and possibly depressed care team consult Hypokalemia. Resolved replace and follow BMP Hypocalcemia. Resolved replacement ordered nephrology following Thrombocytopenia follow CBC Metabolic acidosis secondary to renal failure resolved with sodium bicarb Nausea and vomiting resolved UTI urine culture growing mixed brandee suggestive of contamination will d/c Rocephin hypertension BP controlled Continue home amlodipine/metoprolol hyperlipidemia Continue home statin History of diabetes trulicity NF, on hold Insulin sliding scale History of breast cancer. Continue home anastrozole gerd continue ppi DVT prophylaxis Subcu heparin Attending Dr. Rosario Full code Patient requires continued hospitalization For treatment of BUCK with IV fluids, she also needs frequent electrolyte monitoring and treatment for cellulitis to LLE with IV pain medication Quality Stroke Does the patient have a stroke diagnosis?: No VTE Prior VTE?: No VTE Risk Level:: Medical - moderate - high VTE Device Contraindication: Treatment Not Indicated VTE Drug Contraindication: N/A - Med Ordered
--- NOTE | 2021-10-04 09:34 | PM.CNGS ---
History of Present Illness Consult details Consult date: 10/04/21 Reason for consult: other (Left leg cellulitis) Narrative: very pleasant 86-year-old female presented to the hospital for left lower extremity cellulitis and intractable pain. It began approximately 2 weeks prior. She reports the prior to that she was ambulating and able to carry out activities of daily living inclusive of grocery shopping. It has progressively gotten worse. She was subsequently admitted and treated with antibiotics. She has undergone noninvasive arterial testing. She now presents to us for vascular evaluation. Of note she has a prior smoking history where she quit nearly 30 years prior in addition she is a diabetic. She now presents to us for vascular eval. Review of Systems Review of Systems: Yes all other systems are reviewed and are negative Constitutional: Constitutional: Reports no additional constitutional complaints ENT: Reports Normal hearing present Cardiovascular: Cardiovascular: Denies chest pain, Denies chest pain at rest, Denies chest pain with activity and Denies pedal edema Respiratory: Respiratory: Denies cough Gastrointestinal: Gastrointestinal: Denies abdominal pain Musculoskeletal: Musculoskeletal: Denies abnormal gait, Denies muscle cramps and Denies radiating pain into limb Integumentary/Breasts: Skin/Breast: Denies skin ulcer and Denies wounds Neurologic: Reports Normal hearing present and Denies abnormal gait Psychiatric: Psychiatric: Reports no additional psychiatric complaints PMFSH Past Medical History Medical History (Updated 10/04/21 @ 09:39 by Kota Diop MD) Cellulitis CKD (chronic kidney disease) Coronary artery disease Diabetes Hypertension Family History Family History Father Lung cancer Stomach ulcer Sister Colon cancer, Onset Age: 80 Breast cancer Heart disease HTN (hypertension) Mother Cirrhosis of liver Family/Other Stomach ulcer Surgical History Surgical History Hx of cardiac catheterization (~05/2020) Hx of colonoscopy Hx of endoscopy Social History Social History Household Members: Children Housing: House Do you presently have visiting nurse or other home services: No Alcohol intake: never Patient Tobacco Use Status: Former Tobacco user Advance Directives Date on File: 09/27/21 service: No Current occupational status: retired Meds Allergies Allergy/AdvReac Type Severity Reaction Status Date / Time No Known Allergies Allergy Verified 05/06/20 08:59 [No Known Allergies*] Active Medications: Current Medications Acetaminophen (Acetaminophen 325 Mg Tablet) 650 mg PO Q6H PRN PRN Reason: Pain, Mild (Pain Scale 1-3) Last Admin: 10/02/21 10:24 Dose: 650 mg Documented by: Amlodipine Besylate (Amlodipine Besylate 10 Mg Tablet) 10 mg PO DAILY [facility]; Protocol Last Admin: 10/04/21 07:38 Dose: 10 mg Documented by: Anastrozole (Anastrozole 1 Mg Tablet) 1 mg PO DAILY [facility] Last Admin: 10/04/21 07:39 Dose: 1 mg Documented by: Atorvastatin Calcium (Atorvastatin Calcium 80 Mg Tablet) 80 mg PO DAILY [facility] Last Admin: 10/04/21 07:39 Dose: 80 mg Documented by: Calcitriol (Calcitriol 0.25 Mcg Capsule) 0.5 mcg PO ONCE [facility] Last Admin: 09/29/21 10:40 Dose: 0.5 mcg Documented by: Calcium Acetate (Calcium Acetate 667 Mg Capsule) 1,334 mg PO TIDWM [facility] Last Admin: 10/04/21 07:38 Dose: 1,334 mg Documented by: Dextrose (Dextrose 50 % 25 Gm/50 Ml Vial) 25 gm IVPUSH Q15M PRN; Protocol PRN Reason: per Hypoglycemia Standing Ord. Glucose (Glucose Gel 15 Gm Gel..Gram.) 15 gm PO Q15M PRN; Protocol PRN Reason: per Hypoglycemia Standing Ord. Heparin Sodium (Porcine) (Heparin Sodium,Porcine 5,000 Unit/Ml Vial) 5,000 unit SUBCUT Q8H [facility] Last Admin: 10/04/21 06:30 Dose: 5,000 unit Documented by: Lactated Ringer's (Lr) 1,000 mls @ 100 mls/hr IVCONT .Q10H [facility] Last Admin: 10/04/21 00:53 Dose: 100 mls/hr Documented by: Doxycycline Hyclate 100 mg/ (Sodium Chloride) 250 mls @ 166.67 mls/hr IV Q12H [facility] Last Infusion: 10/04/21 07:24 Dose: Infused Documented by: Insulin Human Lispro (Insulin Lispro 100 Unit/Ml 3 Ml Vial) 0 unit SUBCUT QIDACHS [facility]; Protocol Last Admin: 10/04/21 07:30 Dose: 2 unit Documented by: Melatonin (Melatonin 3 Mg Tablet) 6 mg PO BEDTIME PRN PRN Reason: Insomnia Last Admin: 10/03/21 21:18 Dose: 6 mg Documented by: Metoprolol Succinate (Metoprolol Succinate Er 50 Mg Tab.Er.24h) 50 mg PO DAILY [facility]; Protocol Last Admin: 10/04/21 07:39 Dose: 50 mg Documented by: Multivitamins/Vitamin C (Multivitamin Tablet) 1 tab PO DAILY [facility] Last Admin: 10/04/21 07:39 Dose: 1 tab Documented by: Ondansetron HCl (Ondansetron Hcl 4 Mg/2 Ml Vial) 4 mg IVPUSH Q8H PRN PRN Reason: Nausea and Vomiting Oxycodone HCl (Oxycodone Hcl Immed Release 5 Mg Tablet) 5 mg PO Q4H PRN PRN Reason: Pain, Mild (Pain Scale 1-3) Last Admin: 10/03/21 21:18 Dose: 5 mg Documented by: Pharmacy Consult (Consult Rx Perform Med Rec) 1 each MISCELLANE ONCE PRN PRN Reason: Consult order Sodium Chloride (0.9 % Sodium Chloride Flush 3 Ml Syringe) 3 ml IVFLUSH QSHIFT [facility] Last Admin: 10/04/21 07:38 Dose: 3 ml Documented by: Home Medications Medication Instructions Recorded Confirmed Last Taken Type amlodipine 10 mg tablet 10 mg PO DAILY 09/26/21 09/26/21 Unknown History anastrozole 1 mg tablet 1 mg PO DAILY 09/26/21 09/26/21 Unknown History ascorbic acid (vitamin C) 500 mg mg PO 09/26/21 Unknown History capsule cholecalciferol (vitamin D3) 50 mcg PO DAILY 09/26/21 Unknown History mcg (2,000 unit) capsule (Vitamin D3) dulaglutide 1.5 mg/0.5 mL 1.5 mg SUBCUT TU@1000 09/26/21 09/26/21 Unknown History subcutaneous pen injector (Trulicity) famotidine 20 mg tablet 20 mg PO DAILY 09/26/21 09/26/21 Unknown History metoprolol succinate 50 mg 50 mg PO DAILY 09/26/21 09/26/21 Unknown History tablet,extended release 24 hr pantoprazole 40 mg tablet,delayed 40 mg PO DAILY 09/26/21 09/26/21 Unknown History release vitamin B complex 1 tab PO DAILY 09/26/21 09/26/21 Unknown History Physical Exam Vital Signs: Vital Signs: Last Vital Signs Temp 98.9 F 10/04/21 07:10 Pulse 77 10/04/21 07:10 Resp 18 10/04/21 07:10 BP 121/60 10/04/21 07:10 Pulse Ox 96 10/04/21 07:10 BMI result Body Mass Index 28.3 Const: General: cooperative, healthy appearing and comfortable Orientation/consciousness: oriented to person, oriented to place and oriented to time HEENT: Head: Yes normal to inspection Neck: Neck: Yes normal visual inspection Carotids: no bruits Chest: Chest palpation & inspection: normal inspection of the chest Resp: Effort & Inspection: normal respiratory effort and able to speak in complete sentences Auscultation: clear to auscultation bilaterally, no crackles, no rales, no rhonchi and no wheezes Cardio: Rate: regular rate Rhythm: regular rhythm Heart sounds: S1 normal heart sound present and S2 normal heart sound present Bruits: no carotid bruits Peripheral pulses: dorsalis pedis present ( Bilateral DP signals) GI: Inspection: Yes normal to inspection Skin: Other: left medial calf cellulitis Wounds: no wounds Hair: normal Neuro: General: oriented to person, oriented to place and oriented to time Cranial nerves: Yes CN's II-XII intact bilaterally and Yes Normal hearing present Cognition (Neuro): normal cognition Motor exam (neuro): 5/5 motor strength present throughout Extrem: Other: venous exam: No significant superficial varicosities or spider telangiectasias, minimal edema General: No clubbing, No cyanosis and No edema Psych: Appearance: grossly normal Mental Status: mental status grossly normal Speech and movement: Normal speech and movement present Results Labs Result diagrams: 10/01/21 06:31 10/04/21 05:33 Labs: Abnormal lab results 10/03/21 10/03/21 10/03/21 Range/Units 11:12 15:39 20:28 BUN (9-16) mg/dL Creatinine (0.5-1.4) mg/dL POC Glucose 187 H 145 H 170 H (60-115) mg/dL Random Glucose (60-115) mg/dL 10/04/21 10/04/21 Range/Units 05:33 07:13 BUN 72 H (9-16) mg/dL Creatinine 4.21 H* (0.5-1.4) mg/dL POC Glucose 156 H (60-115) mg/dL Random Glucose 143 H (60-115) mg/dL BMP 10/04/21 05:33 Sodium 137 Potassium 4.5 Chloride 103 Carbon Dioxide 23 BUN 72 H Creatinine 4.21 H* Calcium 8.4 Urine 09/26/21 09/28/21 Range/Units 22:16 18:44 Urine Color YELLOW YELLOW Urine Appearance CLOUDY CLEAR Urine pH 5.5 6.0 (5.0-8.0) Ur Specific [place] 1.020 1.015 (1.005-1.025) Urine Protein 3+ H 2+ H (NEG-TRACE) MG/DL Urine Glucose (UA) NEG 100 H (NEG) MG/DL All other labs normal. Assessment and Plan (1) PAD (peripheral artery disease): Status: Acute Plan in short the patient has an element of peripheral vascular disease. The concern here is that she may have inflow disease as seen on ultrasound. Written report and images were reviewed. The other concern is her chronic renal insufficiency. I would be fearful of doing any sort a intervention acutely on her as her GFR is down to 10. I do think the cellulitis is improving. She can follow up with us as an outpatient. I did give her my business card for follow-up. Thank you for allowing us to assist in her care. If there are any questions or concerns please do not hesitate to contact us. Procedures Date of Service Date of Service: 10/04/21
[2021-10-04 11:05] VITALS: BP 120/58; PULSE 77; RESP 18; TEMP 36.1; O2SAT 95
[2021-10-04 11:15] LABS: Glucose, Whole Blood 136 mg/dL (60-115)
--- NOTE | 2021-10-04 11:47 | P.PNNP_ITS ---
Subjective Subjective Date of Service: 10/04/21 Principal diagnosis: buck on adv ckd Interval history: Seen AM. Events noted. All recent data reviewed Physical Exam Vital Signs: Vital Signs: Last Vital Signs Temp 97.0 F 10/04/21 11:05 Pulse 77 10/04/21 11:05 Resp 18 10/04/21 11:05 BP 120/58 L 10/04/21 11:05 Pulse Ox 95 10/04/21 11:05 BMI result Body Mass Index 28.3 Const: General: no acute distress Orientation/consciousness: patient orient ed x3 HEENT: Head: Yes normocephalic Mouth: moist mucous membranes Eyes: EOM: EOMs intact bilaterally Neck: Neck: Yes supple Resp: Auscultation: diminished lung sounds Cardio: Rate: regular rate GI: Palpation (GI): Soft to palpation Neuro: General: patient oriented x3 and moves all extremities Objective Data Labs CBC & Chem 7: 10/01/21 06:31 10/04/21 05:33 Labs: Laboratory Results - last 24 hr 09/29/21 10/03/21 10/03/21 06:39 15:39 20:28 Sodium Potassium Chloride Carbon Dioxide Anion Gap BUN Creatinine Estim Creat Clear Calc Estimated GFR POC Glucose 145 H 170 H Random Glucose Calcium Proteinase 3 (PR3) Ab <1.0 Myeloperoxidase Ab <1.0 10/04/21 10/04/21 10/04/21 05:33 07:13 11:07 Sodium 137 Potassium 4.5 Chloride 103 Carbon Dioxide 23 Anion Gap 16 BUN 72 H Creatinine 4.21 H* Estim Creat Clear Calc 9.8 Estimated GFR 10 POC Glucose 156 H 136 H Random Glucose 143 H Calcium 8.4 Proteinase 3 (PR3) Ab Myeloperoxidase Ab Microbiology Microbiology Results: Microbiology 09/27/21 09:02 Blood - Venous Blood Culture - Final No growth after 5 days. 09/27/21 09:02 Blood - Venous Blood Culture - Final No growth after 5 days. 09/26/21 Unknown Urine clean catch - Urine grimes top Urine Culture - Final Procedures Date of Service Date of Service: 10/04/21 Assessment & Plan Assessment and plan (1) BUCK (acute kidney injury): Status: Acute Assessment and Plan: Non-Oliguric BUCK: c/w multifactorial ATN likely from ischemic ATN. Cr improved/stable U/S noted: no hydro.; CKD 4 at baseline with Scr 2.0-2.5; Has DN/HTN renal disease C/W rest of current supp care; No indication for renal replacement; Shall closely F/U Time Spent With Patient Time: Total time spent is greater than 50% in coordination of care (as documented) at patient's floor/unit and/or counseling patient: Progress Note: Quality Stroke Does the patient have a stroke diagnosis?: No
[2021-10-04] MEDS: oxyCODONE HCl Immed Release 5 MG TABLET PO (11:55)
[2021-10-04] MEDS: ondansetron HCL 4 MG/2 ML VIAL IVPUSH (11:55)
[2021-10-04 15:09] VITALS: BP 111/58; PULSE 68; RESP 18; TEMP 37.2; O2SAT 98
[2021-10-04 15:54] LABS: Glucose, Whole Blood 128 mg/dL (60-115)
[2021-10-04 19:46] VITALS: BP 115/59; PULSE 80; RESP 17; TEMP 36.8; O2SAT 93
[2021-10-04 19:54] LABS: Glucose, Whole Blood 157 mg/dL (60-115)
[2021-10-04 23:50] VITALS: BP 117/56; PULSE 76; RESP 16; TEMP 37; O2SAT 92
[2021-10-05] VITALS (7 sets, daily range): BP systolic 102–120; BP diastolic 55–61; PULSE 70–79; RESP 17–20; TEMP 36.6–37.1; O2SAT 92–97
[2021-10-05] MEDS: oxyCODONE HCl Immed Release 5 MG TABLET PO ×3 (00:21→20:34)
[2021-10-05] MEDS: Heparin Sodium,Porcine 5,000 UNIT/ML VIAL 5000 UNIT SUBCUT ×3 (06:13→22:16)
[2021-10-05 07:18] LABS: Glucose, Whole Blood 107 mg/dL (60-115)
[2021-10-05 07:48] LABS: Anion Gap 16 (12-20); Blood Urea Nitrogen 69 mg/dL (9-16); Calcium 8.2 mg/dL (8.4-10.2); Carbon Dioxide 21 mmol/L (22-29); Chloride 103 mmol/L (96-108); Creatinine Clr Calc Pharmacy 9.9; Estimated Glomerular Filt Rate 10; Glucose Random 105 mg/dL (60-115); Potassium 4.4 mmol/L (3.3-5.1); Sodium 136 mmol/L (135-145)
[2021-10-05] MEDS: 0.9 % Sodium Chloride Flush 3 ML SYRINGE IVFLUSH ×2 (09:46→15:24)
[2021-10-05] MEDS: Atorvastatin Calcium 80 MG TABLET PO (09:47)
[2021-10-05] MEDS: ondansetron HCL 4 MG/2 ML VIAL IVPUSH (09:47)
[2021-10-05] MEDS: Metoprolol Succinate ER 50 MG TAB.ER.24H PO (09:47)
[2021-10-05] MEDS: Multivitamin TABLET 1 TAB PO (09:48)
[2021-10-05] MEDS: Anastrozole 1 MG TABLET PO (09:48)
[2021-10-05] MEDS: amLODIPine Besylate 10 MG TABLET PO (09:48)
--- NOTE | 2021-10-05 10:25 | P.CDIC_ITS ---
CDI Concurrent Query Documentation Clarification: PHYSICIAN'S DOCUMENTATION REQUEST Date of Query: 10/05/21 1026 Patient Name: Paulette Martínez Admit Date: 09/26/21 Dear Doctor, A review of the medical record indicates additional documentation may be needed. Please review below and update the documentation accordingly. Clinical Indicators: Documentation includes the conditions of Cellulitis and Diabetes Mellitus. Additional clinical indicators in the record include: Risk Factors/Clinical Indicators/Treatments PMH: Diabetes Mellitus Per MD progress note 10/04/21: Cellulitis. no fever or leukocytosis erythema pain and warmth on palpation started on doxycycline, improving Please clarify the relationship between these conditions: l * Yes, Cellulitis left leg is related to / associated with / due to Diabetes Mellitus * No, Cellulitis left leg is not related to / associated with / due to Diabetes Mellitus * Unable to determine Use of terms such as suspected, likely, concern for, or probable (associated with a specific diagnosis that is being evaluated, monitored, or treated as if it exists) are acceptable and can be coded in the inpatient setting, when documented at the time of discharge. Thank you, Shalini Casey , NEVAEH Extension: [phone] Please use your independent medical judgment in providing your response. THIS QUERY IS PART OF THE PERMANENT MEDICAL RECORD Provider Response: Other Other Diagnosis: Cellulitis left leg is not related to / associated with / due to Diabetes Mellitus
[2021-10-05 11:19] LABS: Glucose, Whole Blood 150 mg/dL (60-115)
--- NOTE | 2021-10-05 12:33 | P.PNNP_ITS ---
Subjective Subjective Date of Service: 10/05/21 Principal diagnosis: buck on adv ckd Interval history: Seen AM. Events noted. All recent data reviewed Physical Exam Vital Signs: Vital Signs: Last Vital Signs Temp 98.3 F 10/05/21 11:09 Pulse 70 10/05/21 11:09 Resp 18 10/05/21 11:09 BP 102/59 L 10/05/21 11:09 Pulse Ox 94 10/05/21 11:09 BMI result Body Mass Index 28.3 Const: General: no acute distress Orientation/consciousness: patient orient ed x3 HEENT: Head: Yes normocephalic Mouth: moist mucous membranes Eyes: EOM: EOMs intact bilaterally Neck: Neck: Yes supple Resp: Auscultation: diminished lung sounds Cardio: Rate: regular rate GI: Palpation (GI): Soft to palpation Neuro: General: patient oriented x3 and moves all extremities Objective Data Labs CBC & Chem 7: 10/01/21 06:31 10/05/21 06:24 Labs: Laboratory Results - last 24 hr 10/04/21 10/04/21 10/05/21 15:50 19:49 06:24 Sodium 136 Potassium 4.4 Chloride 103 Carbon Dioxide 21 L Anion Gap 16 BUN 69 H Creatinine 4.17 H* Estim Creat Clear Calc 9.9 Estimated GFR 10 POC Glucose 128 H 157 H Random Glucose 105 Calcium 8.2 L 10/05/21 10/05/21 07:07 11:11 Sodium Potassium Chloride Carbon Dioxide Anion Gap BUN Creatinine Estim Creat Clear Calc Estimated GFR POC Glucose 107 150 H Random Glucose Calcium Microbiology Microbiology Results: Microbiology 09/27/21 09:02 Blood - Venous Blood Culture - Final No growth after 5 days. 09/27/21 09:02 Blood - Venous Blood Culture - Final No growth after 5 days. 09/26/21 Unknown Urine clean catch - Urine grimes top Urine Culture - Final Procedures Date of Service Date of Service: 10/05/21 Assessment & Plan Assessment and plan (1) BUCK (acute kidney injury): Status: Acute Assessment and Plan: Non-Oliguric BUCK: c/w multifactorial ATN likely from ischemic ATN. Cr improved/stable U/S noted: no hydro.; CKD 4 at? baseline with Scr 2.0-2.5; Has? DN/HTN renal disease C/W rest of current supp care; No indication for renal replacement; Shall closely F/U Time Spent With Patient Time: Total time spent is greater than 50% in coordination of care (as documented) at patient's floor/unit and/or counseling patient: Progress Note: Quality Stroke Does the patient have a stroke diagnosis?: No
--- NOTE | 2021-10-05 13:13 | P.PNIM_ITS ---
Subjective Subjective Date of Service: 10/05/21 Interval History: the patient was seen and evaluated this morning Laying in bed, complaining of nausea Pain and erythema decreasing in her leg Denies any fever, chills or shortness of breath Systemic review: No fever, chills but has generalized weakness No chest pain, palpitation No shortness of breath or coughing No abdominal pain, nausea or vomiting No urinary symptoms still having pain and erythema in the leg Physical Exam Vital Signs: Vital Signs: Last Vital Signs Temp 98.3 F 10/05/21 11:09 Pulse 70 10/05/21 11:09 Resp 18 10/05/21 11:09 BP 102/59 L 10/05/21 11:09 Pulse Ox 94 10/05/21 11:09 BMI result Body Mass Index 28.3 Const: Other: Constitutional : Alert, interactive, looks weak and deconditioned Neck : Normal inspection, Supple Cardiovascular : RRR, S1 S2, no lower extremity edema Respiratory : fair bilateral air entry, no crackles, wheezes or rhonchi Gastrointestinal: soft, lax, Normal bowel sounds, Non tender Skin : Warm, Dry, erythema and mild tenderness in her left leg with no drainage noted Neurological : Alert & oriented x3, No focal deficit Objective Data Active Medications Acetaminophen (Acetaminophen 325 Mg Tablet) 650 mg PO Q6H PRN PRN Reason: Pain, Mild (Pain Scale 1-3) Last Admin: 10/02/21 10:24 Dose: 650 mg Documented by: CAREY Amlodipine Besylate (Amlodipine Besylate 10 Mg Tablet) 10 mg PO DAILY [facility]; Protocol Last Admin: 10/05/21 09:48 Dose: 10 mg Documented by: MAYELA Anastrozole (Anastrozole 1 Mg Tablet) 1 mg PO DAILY [facility] Last Admin: 10/05/21 09:48 Dose: 1 mg Documented by: MAYELA Atorvastatin Calcium (Atorvastatin Calcium 80 Mg Tablet) 80 mg PO DAILY [facility] Last Admin: 10/05/21 09:47 Dose: 80 mg Documented by: MAYELA Calcitriol (Calcitriol 0.25 Mcg Capsule) 0.5 mcg PO ONCE [facility] Last Admin: 09/29/21 10:40 Dose: 0.5 mcg Documented by: CARRILLO Calcium Acetate (Calcium Acetate 667 Mg Capsule) 1,334 mg PO TIDWM [facility] Last Admin: 10/05/21 12:22 Dose: Not Given Documented by: MAYELA Non-Admin Reason: Patient Refused Dextrose (Dextrose 50 % 25 Gm/50 Ml Vial) 25 gm IVPUSH Q15M PRN; Protocol PRN Reason: per Hypoglycemia Standing Ord. Doxycycline Hyclate (Doxycycline Hyclate 100 Mg Tablet) 100 mg PO Q12H [facility] Last Admin: 10/05/21 06:14 Dose: 100 mg Documented by: MARIA A Glucose (Glucose Gel 15 Gm Gel..Gram.) 15 gm PO Q15M PRN; Protocol PRN Reason: per Hypoglycemia Standing Ord. Heparin Sodium (Porcine) (Heparin Sodium,Porcine 5,000 Unit/Ml Vial) 5,000 unit SUBCUT Q8H [facility] Last Admin: 10/05/21 06:13 Dose: 5,000 unit Documented by: MARIA A Insulin Human Lispro (Insulin Lispro 100 Unit/Ml 3 Ml Vial) 0 unit SUBCUT QIDAC HS [facility]; Protocol Last Admin: 10/05/21 12:22 Dose: Not Given Documented by: MAYELA Non-Admin Reason: No Insulin Coverage Melatonin (Melatonin 3 Mg Tablet) 6 mg PO BEDTIME PRN PRN Reason: Insomnia Last Admin: 10/03/21 21:18 Dose: 6 mg Documented by: OLYA Metoprolol Succinate (Metoprolol Succinate Er 50 Mg Tab.Er.24h) 50 mg PO DAILY [facility]; Protocol Last Admin: 10/05/21 09:47 Dose: 50 mg Documented by: MAYELA Multivitamins/Vitamin C (Multivitamin Tablet) 1 tab PO DAILY [facility] Last Admin: 10/05/21 09:48 Dose: 1 tab Documented by: MAYELA Ondansetron HCl (Ondansetron Hcl 4 Mg/2 Ml Vial) 4 mg IVPUSH Q8H PRN PRN Reason: Nausea and Vomiting Last Admin: 10/05/21 09:47 Dose: 4 mg Documented by: MAYELA Oxycodone HCl (Oxycodone Hcl Immed Release 5 Mg Tablet) 5 mg PO Q4H PRN PRN Reason: Pain, Mild (Pain Scale 1-3) Last Admin: 10/05/21 09:54 Dose: 5 mg Documented by: MAYELA Pharmacy Consult (Consult Rx Perform Med Rec) 1 each MISCELLANE ONCE PRN PRN Reason: Consult order Sodium Chloride (0.9 % Sodium Chloride Flush 3 Ml Syringe) [address] [facility] Last Admin: 10/05/21 09:46 Dose: 3 ml Documented by: MAYELA Labs CBC & Chem 7: 10/01/21 06:31 10/05/21 06:24 Labs: Laboratory Results - last 24 hr 10/04/21 10/04/21 10/05/21 15:50 19:49 06:24 Anion Gap 16 Estim Creat Clear Calc 9.9 Estimated GFR 10 POC Glucose 128 H 157 H Random Glucose 105 Calcium 8.2 L 10/05/21 10/05/21 07:07 11:11 Anion Gap Estim Creat Clear Calc Estimated GFR POC Glucose 107 150 H Random Glucose Calcium Assessment and Plan (1) Cellulitis: Status: Acute (2) BUCK (acute kidney injury): Status: Acute Plan This is an 86-year-old female with a past history of hypertension, hyperlip idemia, diabetes, CKD, CAD presented to the hospital today with a chief complaint nausea ,vomiting and diarrhea for almost 1 week.? Noted to have BUCK on CKD/metabolic acidosis.? Admitted for further management.? Cellulitis. no fever or leukocytosis continue doxycycline, improving 2 neg DVT us in the last month ID eval, Doxycycline and steroid cream if needed PVD arterial us showed Increased peak systolic velocities in the common femoral, proximal superficial femoral and profunda femoral arteries suggestive of stenosis/inflow disease discussed with vascular surgeon, o/p follow appropriate BUCK on CKD4. Slowly trending down possibly precipitated by GI losses Patient baseline creatinine around 2.5.? Creatinine on presentation was 7.45. improving slowly down to 4 today Renal us neg for obstruction no indication for HD at this time. LR stopped as per nephrology d/w nephrology, plan to follow renal function daily. conservative management for now Mental health seems very down and possibly depressed pending care team consult Hypokalemia. Resolved replace and follow BMP Hypocalcemia. Resolved replacement ordered nephrology following Thrombocytopenia follow CBC Metabolic acidosis secondary to renal failure resolved with sodium bicarb Nausea and vomiting resolved UTI urine culture growing mixed brandee suggestive of contamination will d/c Rocephin hypertension BP controlled Continue home amlodipine/metoprolol hyperlipidemia Continue home statin History of diabetes trulicity NF, on hold Insulin sliding scale History of breast cancer. Continue home anastrozole gerd continue ppi DVT prophylaxis Subcu heparin Attending Dr. Rosario Full code Patient requires continued hospitalization For treatment of BUCK with IV fluids, she also needs frequent electrolyte monitoring and treatment for cellulitis to LLE with IV pain medication pending safe discharge plan and placement. Quality Stroke Does the patient have a stroke diagnosis?: No VTE Prior VTE?: No VTE Risk Level:: Medical - moderate - high VTE Device Contraindication: Treatment Not Indicated VTE Drug Contraindication: N/A - Med Ordered
[2021-10-05] MEDS: Triamcinolone Acet 0.5 % Oint 15 GM TUBE 1 APPL TOPICAL ×2 (14:08→20:34)
--- NOTE | 2021-10-05 15:56 | MHC.CM.NN ---
per rounds possible dc tomorrow bed adrián at [facility] pt is agreeable facilty will be going for auth
[2021-10-05 16:04] LABS: Glucose, Whole Blood 109 mg/dL (60-115)
[2021-10-05 20:09] LABS: Glucose, Whole Blood 158 mg/dL (60-115)
[2021-10-05] MEDS: Insulin Lispro 100 UNIT/ML 3 ML VIAL SUBCUT (20:34)
[2021-10-06] VITALS (7 sets, daily range): BP systolic 109–146; BP diastolic 55–72; PULSE 74–80; RESP 18; TEMP 36.8–37.4; O2SAT 91–93
[2021-10-06] MEDS: 0.9 % Sodium Chloride Flush 3 ML SYRINGE IVFLUSH ×4 (00:22→22:35)
[2021-10-06] MEDS: Heparin Sodium,Porcine 5,000 UNIT/ML VIAL 5000 UNIT SUBCUT ×3 (06:14→22:32)
[2021-10-06 06:46] LABS: Hematocrit 30.7 % (37.0-47.0); Hemoglobin 9.9 g/dl (12.0-16.0); Mean Corpuscular HGB Conc 32.2 g/dl (31.0-35.0); Mean Corpuscular Hemoglobin 29.9 pg (27.0-33.0); Mean Corpuscular Volume 92.7 fL (80.0-98.0); Mean Platelet Volume 9.4 fL (9.4-12.3); Platelet Count 229 X10*3/uL (160-400); Red Blood Count 3.31 X10*6/uL (4.20-5.50); Red Cell Distribution Width 13.4 % (11.0-16.0); White Blood Count 12.7 X10*3/uL (4.8-10.8)
[2021-10-06 07:12] LABS: Anion Gap 18 (12-20); Blood Urea Nitrogen 73 mg/dL (9-16); Calcium 8.2 mg/dL (8.4-10.2); Carbon Dioxide 21 mmol/L (22-29); Chloride 102 mmol/L (96-108); Estimated Glomerular Filt Rate 10; Glucose Random 116 mg/dL (60-115); Potassium 4.5 mmol/L (3.3-5.1); Sodium 136 mmol/L (135-145)
[2021-10-06 07:55] LABS: Glucose, Whole Blood 112 mg/dL (60-115)
[2021-10-06] MEDS: Metoprolol Succinate ER 50 MG TAB.ER.24H PO (08:03)
[2021-10-06] MEDS: Multivitamin TABLET 1 TAB PO (08:03)
[2021-10-06] MEDS: Anastrozole 1 MG TABLET PO (08:03)
[2021-10-06] MEDS: Calcium Acetate 667 MG CAPSULE 1334 MG PO ×3 (08:03→16:57)
[2021-10-06] MEDS: amLODIPine Besylate 10 MG TABLET PO (08:03)
[2021-10-06] MEDS: Atorvastatin Calcium 80 MG TABLET PO (08:04)
[2021-10-06] MEDS: Triamcinolone Acet 0.5 % Oint 15 GM TUBE 1 APPL TOPICAL ×2 (08:04→22:32)
[2021-10-06] MEDS: oxyCODONE HCl Immed Release 5 MG TABLET PO ×2 (11:00→19:24)
--- NOTE | 2021-10-06 11:16 | PM.PNNEP ---
Subjective Subjective Date of Service: 10/06/21 Principal diagnosis: buck on adv ckd Interval history: Feels better. Asking about getting discharged Physical Exam Vital Signs: Vital Signs: Last Vital Signs Temp 98.2 F 10/06/21 11:12 Pulse 76 10/06/21 11:12 Resp 18 10/06/21 11:12 BP 109/57 L 10/06/21 11:12 Pulse Ox 93 10/06/21 11:12 BMI result Body Mass Index 28.3 Const: General: no acute distress Orientation/consciousness: patient oriented x3 HEENT: Head: Yes normocephalic Mouth: moist mucous membranes Eyes: EOM: EOMs intact bilaterally Neck: Neck: Yes supple Resp: Auscultation: diminished lung sounds Cardio: Rate: regular rate GI: Palpation (GI): Soft to palpation Neuro: General: patient oriented x3 and moves all extremities Objective Data Labs CBC & Chem 7: 10/06/21 06:14 10/06/21 06:14 Labs: Laboratory Results - last 24 hr 10/05/21 10/05/21 10/05/21 11:11 16:01 20:02 WBC RBC Hgb Hct MCV MCH MCHC RDW Plt Count MPV Absolute Nucleated RBC Nucleated RBC % (auto) Sodium Potassium Chloride Carbon Dioxide Anion Gap BUN Creatinine Estim Creat Clear Calc Estimated GFR POC Glucose 150 H 109 158 H Random Glucose Calcium 10/06/21 10/06/21 10/06/21 06:14 06:14 07:08 WBC 12.7 H RBC 3.31 L Hgb 9.9 L Hct 30.7 L MCV 92.7 MCH 29.9 MCHC 32.2 RDW 13.4 Plt Count 229 D MPV 9.4 Absolute Nucleated RBC 0.000 Nucleated RBC % (auto) 0.0 Sodium 136 Potassium 4.5 Chloride 102 Carbon Dioxide 21 L Anion Gap 18 BUN 73 H Creatinine 4.11 H* Estim Creat Clear Calc 10.0 Estimated GFR 10 POC Glucose 112 Random Glucose 116 H Calcium 8.2 L Microbiology Microbiology Results: Microbiology 09/27/21 09:02 Blood - Venous Blood Culture - Final No growth after 5 days. 09/27/21 09:02 Blood - Venous Blood Culture - Final No growth after 5 days. 09/26/21 Unknown Urine clean catch - Urine grimes top Urine Culture - Final Procedures Date of Service Date of Service: 10/06/21 Assessment & Plan Assessment and plan (1) BUCK (acute kidney injury): Status: Acute Assessment and Plan: Non-Oliguric BUCK: c/w multifactorial ATN likely from ischemic ATN. Cr improved/stable U/S noted: no hydro.; CKD 4 at? baseline with Scr 2.0-2.5; Has? DN/HTN renal disease C/W rest of current supp care; No indication for renal replacement; Shall closely F/U in office if D/Elvis Time Spent With Patient Time: Total time spent is greater than 50% in coordination of care (as documented) at patient's floor/unit and/or counseling patient: Progress Note: Quality Stroke Does the patient have a stroke diagnosis?: No
--- NOTE | 2021-10-06 11:23 | P.DS_ITS ---
DS: Providers Provider Date of Service: 10/07/21 Date of admission: 09/26/21 21:35 Primary care physician: Ene Menon NP Consults: 09/26/21 21:35 Consult to Nephrology Routine Consulting Provider: Chavo Zimmer Reason for consultation: BUCK on CKD; acidosis 10/02/21 16:21 Consult to Infectious Diseases Routine Consulting Provider: Jennifer Frausto Reason for consultation: ? cellulitis leg lower ext Has provider been notified: No 10/04/21 07:47 Consult to Vascular Surgery Routine Consulting Provider: Kota Diop Reason for consultation: abnormal doppler Has provider been notified: No 10/04/21 09:26 Consult to Care Team Routine Comment: Reason for consultation: depressed DS: Diagnosis Discharge Diagnosis (1) BUCK (acute kidney injury): Status: Acute DS: Summary Hospital Course Hospital Course: admission note HPI 86-year-old female with a past history of hypertension, hyperlipidemia, diabetes, CKD, CAD presented to the hospital today with a chief complaint nausea vomiting and diarrhea.? Patient reports that over the past 1 week she has been having nausea vomiting and diarrhea and also decreased oral intake.? Mentions that she has sick contacts at home has grand kid with similar symptoms; denies any abdominal pain.? Denies any blood in the vomitus or stool.?Mentions that she has been complaint with her home medications.?Mentions that she used to take furosemide for her peripheral edema but not on it anymore.?Denies any fever chills cough.? Denies any urinary symptoms.? Per ER team patient noted to have benign examination; on labs noted to have severe BUCK with creatinine of 7.4 compared to baseline of 2.5.? Also noted to have metabolic acidosis in the setting of renal insufficiency.? Patient was given 2 ampules of sodium bicarb.?PH noted to be 7.2.? Admitted to the hospital for further management. Hospital course The patient was admitted for evaluation of acute on chronic kidney injury associated with metabolic acidosis and electrolyte imbalance of hypokalemia, hypocalcemia. her findings were associated with diarrhea and really does and 18. Evaluated by Nephrology as renal ultrasound was negative for obstruction. Received IV fluid with holding nephrotoxic medications as her kidney function started to improve trending down from 7.5 at time of presentation to almost for at the day of discharge with her baseline creatinine around 2.5 of CKD stage 4. Started on calcium acetate for high phosphorous. Evaluated for left leg pain with arterial study that showed stenosis in the femoral arteries that was discussed with vascular surgeon who recommended medical management and to follow-up as outpatient in the clinic. Started on high-dose statin and baby aspirin meanwhile. Evaluated by infectious disease specialist for left lower extremity erythema that was treated as cellulitis with usage of doxycycline with fair response as it is improving. Steroid cream was added as well per ID recommendations. Start baby aspirin and atorvastatin as prescribed continue calcium acetate Continue doxycycline as prescribed to follow up with Nephrology as scheduled, to repeat blood test next week To follow-up with Dr. Diop office in the next 2 weeks for evaluation of peripheral vascular disease in the left lower extremity. Time Spent with Patient Time attestation: Total time spent providing and/or coordinating discharge services: Discharge coordination time: Greater than 30 minutes Quality: Safe Use of Opioids Does Pt have an Active Cancer Diagnosis on the Problem List?: No Quality: Stroke Does the patient have a stroke diagnosis?: No Physical Exam Vital Signs: Vital Signs: Last Vital Signs Temp 98.2 F 10/06/21 11:12 Pulse 76 10/06/21 11:12 Resp 18 10/06/21 11:12 BP 109/57 L 10/06/21 11:12 Pulse Ox 93 10/06/21 11:12 BMI result Body Mass Index 28.3 Const: Other: Constitutional : Alert, interactive, looks weak and deconditioned Neck : Normal inspection, Supple Cardiovascular : RRR, S1 S2, no lower extremity edema Respiratory : fair bilateral air entry, no crackles, wheezes or rhonchi Gastrointestinal: soft, lax, Normal bowel sounds, Non tender Skin : Warm, Dry, erythema and mild tenderness in her left leg with no drainage noted Neurological : Alert & oriented x3, No focal deficit DS: Data Data Completed and Pending Labs on day of discharge: Laboratory Results - last 24 hr 10/05/21 10/05/21 10/06/21 16:01 20:02 06:14 WBC 12.7 H RBC 3.31 L Hgb 9.9 L Hct 30.7 L MCV 92.7 MCH 29.9 MCHC 32.2 RDW 13.4 Plt Count 229 D MPV 9.4 Absolute Nucleated RBC 0.000 Nucleated RBC % (auto) 0.0 Sodium Potassium Chloride Carbon Dioxide Anion Gap BUN Creatinine Estim Creat Clear Calc Estimated GFR POC Glucose 109 158 H Random Glucose Calcium 10/06/21 10/06/21 06:14 07:08 WBC RBC Hgb Hct MCV MCH MCHC RDW Plt Count MPV Absolute Nucleated RBC Nucleated RBC % (auto) Sodium 136 Potassium 4.5 Chloride 102 Carbon Dioxide 21 L Anion Gap 18 BUN 73 H Creatinine 4.11 H* Estim Creat Clear Calc 10.0 Estimated GFR 10 POC Glucose 112 Random Glucose 116 H Calcium 8.2 L Discharge Plan Discharge Patient Disposition: Xfer [facility] Discharge Diagnosis: acute kidney injury Acute hyponatremia Cellulitis Referrals: janis mt [Other] - 1 Week Ene Menon NP [Primary Care Provider] - 1 Week Discharge Medications: New doxycycline hyclate 100 mg Tablet 100 mg PO Q12H Qty: 10 0RF atorvastatin 80 mg Tablet 80 mg PO DAILY 30 Days Qty: 30 0RF calcium acetate(phosphat bind) 667 mg Capsule 1,334 mg PO TIDWM 30 Days Qty: 180 0RF aspirin 81 mg capsule 81 mg PO DAILY Qty: 30 0RF Continued anastrozole 1 mg Tablet 1 mg PO DAILY 0RF famotidine 20 mg Tablet 20 mg PO DAILY 0RF metoprolol succinate 50 mg Tablet Extended Release 24 Hr 50 mg PO DAILY 0RF pantoprazole 40 mg Tablet,Delayed Release (Dr/Ec) 40 mg PO DAILY 0RF Trulicity 1.5 mg/0.5 mL Pen Injector 1.5 mg SUBCUT TU@1000 0RF amlodipine 10 mg Tablet 10 mg PO DAILY 0RF vitamin B complex Tablet 1 tab PO DAILY 0RF ascorbic acid (vitamin C) 500 mg Capsule PO 0RF cholecalciferol (vitamin D3) [Vitamin D3] 50 mcg (2,000 unit) Capsule PO DAILY 0RF Discontinued rosuvastatin 40 mg tablet 40 mg PO DAILY Qty: 90 0RF Rx Instructions: needs cardiology follow up before more refills Discharge Orders: Discharge Order (Routine); Ordered 10/07/21 Ordered By: Speedy Lockwood Diet: advance to usual diet Activity on Discharge: As tolerated Stand Alone Forms: Patient Portal Discharge page Other Ambulatory Orders: Basic Metabolic Panel (Routine) Timeframe: 1 Week Facility: [facility] - Location: Laboratory Ordered By: Speedy Lockwood Care Plan Goals: Read below Health Concerns: Read below Plan of Treatment: Read below Assessment: you were admitted to the hospital with a complaint of nausea and vomiting. Found to be in acute kidney injury that was evaluated by superintendent construction during her hospital stay and treated with IV fluids and electrolyte replacement. Your kidney function is improving and will continue to monitor after discharge. You developed skin infection in your leg. To be treated with oral antibiotics. And arterial ultrasound was done to your left leg showing signs of stenosis. You need to follow-up with vascular surgeon. To start baby aspirin meanwhile. Start baby aspirin and atorvastatin as prescribed continue calcium acetate Continue doxycycline as prescribed to follow up with Nephrology as scheduled, to repeat blood test next week To follow-up with Dr. Diop office in the next 2 weeks for evaluation of peripheral vascular disease in the left lower extremity.
--- NOTE | 2021-10-06 11:27 | MHC.CARE ---
CARE Team Handle Maker met with pt. secondary after consult for depression. Pt. was pleasant and engaged. Pt. stated that she is upset due to her poor physical health and stated that she just wants to leave the hospital. Pt. will be discharged to [facility] and stated that she will use the supportive services that are there. CARE Team Handle Maker informed pt. about support services through the hospital, pt. denied these services.
[2021-10-06 11:36] LABS: Glucose, Whole Blood 145 mg/dL (60-115)
--- NOTE | 2021-10-06 13:07 | MHC.CM.PN ---
Addendum entered by Zoriada Wilson 10/06/21 16:17: [facility] IS STILL WAITING FOR INSURANCE AUTH CM WILL FOLLOW UP IN THE MORNING Original Note: PT IS CLEARED FOR DC TODAY NEITHER [facility] HAVE A BED [facility] IS OFFERING PENDING AUTH CM CALLED PTS DAUGHTER BENNIE [phone] AND SPOKE TO PT ABOUT THE BED AVAILABILITY. PT IS ACCEPTING [facility] BED OFFER [facility] HAS SUBMITTED FOR AUTH PT WILL DC TO [facility] FOR STR PENDING INSURANCE AUTH
[2021-10-06 15:14] LABS: COVID-19 Test Negative (Negative); IDNOW Serial# 16C4AD1C
[2021-10-06 16:01] LABS: Glucose, Whole Blood 154 mg/dL (60-115)
[2021-10-06] MEDS: Insulin Lispro 100 UNIT/ML 3 ML VIAL SUBCUT (16:56)
[2021-10-06 20:14] LABS: Glucose, Whole Blood 145 mg/dL (60-115)
[2021-10-07 03:35] VITALS: BP 121/58; PULSE 78; RESP 17; TEMP 36.8; O2SAT 93
[2021-10-07 07:08] VITALS: BP 115/56; PULSE 79; RESP 18; TEMP 36.5; O2SAT 92
[2021-10-07 07:14] LABS: Glucose, Whole Blood 141 mg/dL (60-115)
[2021-10-07] MEDS: 0.9 % Sodium Chloride Flush 3 ML SYRINGE IVFLUSH (08:45)
[2021-10-07] MEDS: Heparin Sodium,Porcine 5,000 UNIT/ML VIAL 5000 UNIT SUBCUT (08:45)
[2021-10-07] MEDS: Atorvastatin Calcium 80 MG TABLET PO (08:46)
[2021-10-07] MEDS: Anastrozole 1 MG TABLET PO (08:46)
[2021-10-07] MEDS: Metoprolol Succinate ER 50 MG TAB.ER.24H PO (08:46)
[2021-10-07] MEDS: Multivitamin TABLET 1 TAB PO (08:46)
[2021-10-07] MEDS: Calcium Acetate 667 MG CAPSULE 1334 MG PO (08:46)
[2021-10-07] MEDS: amLODIPine Besylate 10 MG TABLET PO (08:46)
[2021-10-07] MEDS: Triamcinolone Acet 0.5 % Oint 15 GM TUBE 1 APPL TOPICAL (08:54)
--- NOTE | 2021-10-07 09:30 | MHC.CM.PN ---
pt dcd to [facility] today at 11 dgter harpreet notified of dc
--- NOTE | 2021-10-07 10:15 | HO.PM.IMPN ---
Subjective Subjective Date of Service: 10/06/21 Interval History: late entry as the patient was not discharged on October 06 she was seen in the morning of October 06 Laying in bed, no complaints Pain and erythema improving Denies any fever, chills or shortness of breath Systemic review: No fever, chills but has generalized weakness No chest pain, palpitation No shortness of breath or coughing No abdominal pain, nausea or vomiting No urinary symptoms still having pain and erythema in the leg Physical Exam Vital Signs: Vital Signs: Last Vital Signs Temp 97.7 F 10/07/21 07:08 Pulse 79 10/07/21 07:08 Resp 18 10/07/21 07:08 BP 115/56 L 10/07/21 07:08 Pulse Ox 92 10/07/21 07:08 BMI result Body Mass Index 28.3 Const: Other: Constitutional : Alert, interactive, looks weak and deconditioned Neck : Normal inspection, Supple Cardiovascular : RRR, S1 S2, no lower extremity edema Respiratory : fair bilateral air entry, no crackles, wheezes or rhonchi Gastrointestinal: soft, lax, Normal bowel sounds, Non tender Skin : Warm, Dry, erythema and mild tenderness in her left leg with no drainage noted Neurological : Alert & oriented x3, No focal deficit Objective Data Active Medications Acetaminophen (Acetaminophen 325 Mg Tablet) 650 mg PO Q6H PRN PRN Reason: Pain, Mild (Pain Scale 1-3) Last Admin: 10/02/21 10:24 Dose: 650 mg Documented by: CAREY Amlodipine Besylate (Amlodipine Besylate 10 Mg Tablet) 10 mg PO DAILY [facility]; Protocol Last Admin: 10/07/21 08:46 Dose: 10 mg Documented by: BARBARA Anastrozole (Anastrozole 1 Mg Tablet) 1 mg PO DAILY [facility] Last Admin: 10/07/21 08:46 Dose: 1 mg Documented by: BARBARA Atorvastatin Calcium (Atorvastatin Calcium 80 Mg Tablet) 80 mg PO DAILY [facility] Last Admin: 10/07/21 08:46 Dose: 80 mg Documented by: BARBARA Calcitriol (Calcitriol 0.25 Mcg Capsule) 0.5 mcg PO ONCE [facility] Last Admin: 09/29/21 10:40 Dose: 0.5 mcg Documented by: CARRILLO Calcium Acetate (Calcium Acetate 667 Mg Capsule) 1,334 mg PO TIDWM [facility] Last Admin: 10/07/21 08:46 Dose: 1,334 mg Documented by: BARBARA Dextrose (Dextrose 50 % 25 Gm/50 Ml Vial) 25 gm IVPUSH Q15M PRN; Protocol PRN Reason: per Hypoglycemia Standing Ord. Doxycycline Hyclate (Doxycycline Hyclate 100 Mg Tablet) 100 mg PO Q12H [facility] Last Admin: 10/07/21 05:42 Dose: 100 mg Documented by: STEPHEN Glucose (Glucose Gel 15 Gm Gel..Gram.) 15 gm PO Q15M PRN; Protocol PRN Reason: per Hypoglycemia Standing Ord. Heparin Sodium (Porcine) (Heparin Sodium,Porcine 5,000 Unit/Ml Vial) 5,000 unit SUBCUT Q8H [facility] Last Admin: 10/07/21 08:45 Dose: 5,000 unit Documented by: BARBARA Insulin Human Lispro (Insulin Lispro 100 Unit/Ml 3 Ml Vial) 0 unit SUBCUT QIDACHS [facility]; Protocol Last Admin: 10/07/21 08:45 Dose: Not Given Documented by: BARBARA Non-Admin Reason: No Insulin Coverage Melatonin (Melatonin 3 Mg Tablet) 6 mg PO BEDTIME PRN PRN Reason: Insomnia Last Admin: 10/03/21 21:18 Dose: 6 mg Documented by: OLYA Metoprolol Succinate (Metoprolol Succinate Er 50 Mg Tab.Er.24h) 50 mg PO DAILY [facility]; Protocol Last Admin: 10/07/21 08:46 Dose: 50 mg Documented by: BARBARA Multivitamins/Vitamin C (Multivitamin Tablet) 1 tab PO DAILY [facility] Last Admin: 10/07/21 08:46 Dose: 1 tab Documented by: BARBARA Ondansetron HCl (Ondansetron Hcl 4 Mg/2 Ml Vial) 4 mg IVPUSH Q8H PRN PRN Reason: Nausea and Vomiting Last Admin: 10/05/21 09:47 Dose: 4 mg Documented by: MAYELA Oxycodone HCl (Oxycodone Hcl Immed Release 5 Mg Tablet) 5 mg PO Q4H PRN PRN Reason: Pain, Mild (Pain Scale 1-3) Last Admin: 10/06/21 19:24 Dose: 5 mg Documented by: STEPHEN Pharmacy Consult (Consult Rx Perform Med Rec) 1 each MISCELLANE ONCE PRN PRN Reason: Consult order Polyethylene Glycol (Polyethylene Glycol 3350 17 Gm Powd.Pack) 17 gm PO ONCE ONE Stop: 10/07/21 10:15 Sodium Chloride (0.9 % Sodium Chloride Flush 3 Ml Syringe) 3 ml IVFLUSH QSHIFT [facility] Last Admin: 10/07/21 08:45 Dose: 3 ml Documented by: BARBARA Triamcinolone Acetonide (Triamcinolone Acet 0.5 % Oint 15 Gm Tube) 1 appl TOPICAL BID [facility] Last Admin: 10/07/21 08:54 Dose: 1 appl Documented by: BARBARA Labs CBC & Chem 7: 10/06/21 06:14 10/06/21 06:14 Labs: Laboratory Results - last 24 hr 10/06/21 10/06/21 10/06/21 11:14 14:53 15:57 POC Glucose 145 H 154 H COVID-19 ([facility]) Negative COVID-19 Clin Com See Note 10/06/21 10/07/21 20:07 07:10 POC Glucose 145 H 141 H COVID-19 ([facility]) COVID-19 Clin Com Assessment and Plan (1) PAD (peripheral artery disease): Status: Acute (2) Cellulitis: Status: Acute Plan This is an 86-year-old female with a past history of hypertension, hyperlipidemia, diabetes, CKD, CAD presented to the hospital today with a chief complaint nausea ,vomiting and diarrhea for almost 1 week.? Noted to have BUCK on CKD/metabolic acidosis.? Admitted for further management.? Cellulitis. no fever or leukocytosis continue doxycycline, improving 2 neg DVT us in the last month ID eval, Doxycycline and steroid cream if needed PVD arterial us showed Increased peak systolic velocities in the common femoral, proximal superficial femoral and profunda femoral arteries suggestive of stenosis/inflow disease discussed with vascular surgeon, o/p follow appropriate BUCK on CKD4. Slowly trending down possibly precipitated by GI losses Patient baseline creatinine around 2.5.? Creatinine on presentation was 7.45. improving slowly down to 4 today Renal us neg for obstruction no indication for HD at this time. LR stopped as per nephrology d/w nephrology, plan to follow renal function daily. conservative management for now Mental health seems very down and possibly depressed pending care team consult Hypokalemia. Resolved replace and follow BMP Hypocalcemia. Resolved replacement ordered nephrology following Thrombocytopenia follow CBC Metabolic acidosis secondary to renal failure resolved with sodium bicarb Nausea and vomiting resolved UTI urine culture growing mixed brandee suggestive of contamination will d/c Rocephin hypertension BP controlled Continue home amlodipine/metoprolol hyperlipidemia Continue home statin History of diabetes trulicity NF, on hold Insulin sliding scale History of breast cancer. Continue home anastrozole gerd continue ppi DVT prophylaxis Subcu heparin Attending Dr. Rosario Full code Patient requires continued hospitalization For treatment of BUCK with IV fluids, she also needs frequent electrolyte monitoring and treatment for cellulitis to LLE with IV pain medication pending safe discharge plan and placement. Quality Stroke Does the patient have a stroke diagnosis?: No VTE Prior VTE?: No VTE Risk Level:: Medical - moderate - high VTE Device Contraindication: Treatment Not Indicated VTE Drug Contraindication: N/A - Med Ordered
[2021-10-07] MEDS: polyethylene glycoL 3350 17 GM POWD.PACK PO (10:38)
[2021-10-07] MEDS: Ondansetron ODT 4 MG TAB.RAPDIS TRANSLINGU (10:58)
== END 2021-10-07 11:42 | disposition skilled nursing facility (03) | DRG 682 ==
LOC: HO.ED 18:57 → HO.EDOVER 21:43 → HO.IMC 09-27 21:33
PROVIDERS: Internal Medicine Nephrology; Nurse Practitioner Acute Care; Physician Assistant Medical; Admitting Provider Hospitalist; Emergency Provider Emergency Medicine; PCP Nurse Practitioner Family; Visit Provider Student in an Organized Health Care Education/Training Program
DX: I12.9 Hypertensive chronic kidney disease with stage 1 through stage 4 chronic kidney disease, or unspecified chronic kidney disease (principal); N17.0 Acute kidney failure with tubular necrosis; E87.2 Acidosis; N18.4 Chronic kidney disease, stage 4 (severe); C50.919 Malignant neoplasm of unspecified site of unspecified female breast; E78.5 Hyperlipidemia, unspecified; I25.10 Atherosclerotic heart disease of native coronary artery without angina pectoris; R49.22 Hyponasality; D69.6 Thrombocytopenia, unspecified; E83.51 Hypocalcemia; E11.22 Type 2 diabetes mellitus with diabetic chronic kidney disease; E11.51 Type 2 diabetes mellitus with diabetic peripheral angiopathy without gangrene; K21.9 Gastro-esophageal reflux disease without esophagitis; A08.4 Viral intestinal infection, unspecified; E87.6 Hypokalemia; L95.9 Vasculitis limited to the skin, unspecified; Z20.822 Contact with and (suspected) exposure to COVID-19; Z87.891 Personal history of nicotine dependence; Z79.82 Long term (current) use of aspirin; Z79.818 Long term (current) use of other agents affecting estrogen receptors and estrogen levels; Z79.899 Other long term (current) drug therapy
CPT/HCPCS: 36415; 76775; 80048; 80076; 81001; 82803; 82947; 83735; 84100; 84156; 84300; 85025; 85027; 86021; 86704; 86706; 86803; 87040; 87086; 87340; 87502; 87635; 93926; 93970; 96374; 96375; 96376; 97110; 97162; 97530; 99285; J0696; J2405

== ENCOUNTER 2021-11-09 10:55 | Outpatient (REF) | payer MEDICARE, SELFPAY ==
--- NOTE | ~2021-11-09 | XR_ITS ---
EXAMINATION:XR ankle LT min 3V, XR tibia fibula LT 2V CLINICAL INFORMATION: Reason for Exam LEFT LEG PAIN COMPARISON: None TECHNIQUE: AP, lateral, and mortise views of the ankle., Frontal and lateral tibia-fibula. FINDINGS: There is no fracture or dislocation. Ankle mortise is preserved. Tibial plafond and talar dome are intact. Medial and lateral malleoli are properly aligned. Subtalar joint is normal. There is no osteolytic or osteoblastic lesions. There are heavy vascular calcifications. There are small posterior and inferior calcaneal spurs. XR/XR ankle LT min 3V IMPRESSION: No fracture or dislocation. There are heavy vascular calcifications.
--- NOTE | ~2021-11-09 | XR_ITS ---
EXAMINATION:XR ankle LT min 3V, XR tibia fibula LT 2V CLINICAL INFORMATION: Reason for Exam LEFT LEG PAIN COMPARISON: None TECHNIQUE: AP, lateral, and mortise views of the ankle., Frontal and lateral tibia-fibula. FINDINGS: There is no fracture or dislocation. Ankle mortise is preserved. Tibial plafond and talar dome are intact. Medial and lateral malleoli are properly aligned. Subtalar joint is normal. There is no osteolytic or osteoblastic lesions. There are heavy vascular calcifications. There are small posterior and inferior calcaneal spurs. XR/XR tibia fibula LT 2V IMPRESSION: No fracture or dislocation. There are heavy vascular calcifications.
[2021-11-09 12:17] LABS: Anion Gap 13 (12-20); Blood Urea Nitrogen 43 mg/dL (9-16); Calcium 8.5 mg/dL (8.4-10.2); Carbon Dioxide 22 mmol/L (22-29); Chloride 110 mmol/L (96-108); Estimated Glomerular Filt Rate 15; Glucose Random 122 mg/dL (60-115); Potassium 4.4 mmol/L (3.3-5.1); Sodium 141 mmol/L (135-145)
== END 2021-11-09 10:56 | disposition home or self-care (01) ==
LOC: HO.LAB 10:55
PROVIDERS: Absent Provider Nurse Practitioner Family; PCP Nurse Practitioner Family; Referring Provider Internal Medicine Nephrology; Visit Provider Student in an Organized Health Care Education/Training Program
DX: M25.572 Pain in left ankle and joints of left foot (principal); M79.605 Pain in left leg; N17.9 Acute kidney failure, unspecified
CPT/HCPCS: 36415; 73590; 73610; 80048

== ENCOUNTER → 2021-12-08 13:02 | Outpatient (BNVA) | payer MEDICARE, SELFPAY | PROVIDERS: PCP Nurse Practitioner Family; Visit Provider Surgery Vascular Surgery | DX: I73.9 Peripheral vascular disease, unspecified (principal); I71.4 Abdominal aortic aneurysm, without rupture; I83.11 Varicose veins of right lower extremity with inflammation | CPT/HCPCS: 99202 ==

== ENCOUNTER 2022-01-19 12:59 | Outpatient (REF) | payer MEDICARE, SELFPAY ==
--- NOTE | ~2022-01-19 | US_ITS ---
EXAMINATION: NONINVASIVE ASSESSMENT OF THE ARTERIES OF BOTH LOWER EXTREMITIES INCLUDING PVR EXAM AND BILATERAL LOWER EXTREMITY DUPLEX. CLINICAL INFORMATION: Peripheral vascular disease COMPARISON: Noninvasive exam of the lower extremities on 10/03/2021 TECHNIQUE: Ankle pulse volume recordings, ankle pressure measurements and ankle brachial indices were obtained of the lower extremity arterial system bilaterally in addition to duplex Doppler techniques with wave form analysis and measurement of velocities in the common femoral, profunda femoral, superficial femoral, popliteal, tibial and peroneal arteries. The study was performed only at rest. FINDINGS: RIGHT LEG 1. THE RIGHT ANKLE-BRACHIAL INDEX IS: 1.24 >0.97-1.25 = normal - no significant arterial disease 0.75-0.96 = mild peripheral arterial disease 0.5-0.74 = moderate peripheral arterial disease <0.50 = severe peripheral arterial disease <0.30 = critical arterial disease 2. SEGMENTAL PRESSURES (mmHg): Ankle: PT 200, DP 200 3. PVR WAVEFORMS: Ankle: Dampened 4. DIRECT DUPLEX: Common femoral artery: 619 cm/s, Multiphasic Profunda femoris artery: 71 cm/s, Multiphasic Superficial femoral artery (proximal): 58 cm/s, Multiphasic Superficial femoral artery (mid): 76 cm/s, monophasic Superficial femoral artery (distal): 185 cm/s, monophasic Proximal Popliteal artery: 256 cm/s, monophasic Mid posterior tibial artery: 79 cm/s, monophasic LEFT LE. THE LEFT ANKLE-BRACHIAL INDEX IS: 1.27 (higher of the DP/PT) >0.97-1.25 = normal - no significant arterial disease 0.75-0.96 = mild peripheral arterial disease 0.5-0.74 = moderate peripheral arterial disease <0.50 = severe peripheral arterial disease <0.30 = critical arterial disease 2. SEGMENTAL PRESSURES: Ankle: PT 205, DP 205 3. PVR WAVEFORMS: Ankle: Dampened 4. DIRECT DUPLEX: Common femoral artery: 361 cm/s, Multiphasic Profunda femoris artery: 332 cm/s, Multiphasic Superficial femoral artery (proximal): 130 cm/s, Multiphasic Superficial femoral artery (mid): 110 cm/s, Multiphasic Superficial femoral artery (distal): 34 cm/s, monophasic Proximal Popliteal artery: 33 cm/s, monophasic Mid posterior tibial artery: 35 cm/s, monophasic US/US arterial duplex LE BI IMPRESSION: Significantly elevated velocities in the bilateral common femoral artery suggesting inflow disease. Elevated velocity in the bilateral superficial femoral arteries with dampened flow distally suggesting hemodynamically significant disease.
--- NOTE | ~2022-01-19 | US_ITS ---
EXAMINATION: US RETROPERITONEAL LIMITED (AORTA) CLINICAL INFORMATION: Abdominal aortic aneurysm repair in 2000. COMPARISON: None TECHNIQUE: Stroud-scale, color Doppler and spectral Doppler evaluation of the abdominal aorta. FINDINGS: There is atherosclerotic disease. Aneurysm repair is not well delineated given ultrasound technique. The measurements of the aorta in maximum AP and transverse dimensions respectively are as follows: Proximal: 3.6 x 3.2 cm. Mid: 2.9 x 2.1 cm. Distal: 2.6 x 3.0 cm. PSV: 45.9 cm/s. The measurements of the common iliac arteries in maximum AP and TRV dimensions are as follows: Right Common Iliac Artery: 1.0 x 1.2 cm. Left Common Iliac Artery: 1.0 x 1.5 cm. US/US abdominal aortic aneurysm IMPRESSION: No abdominal aortic or iliac artery aneurysm. The reported abdominal aortic aneurysm repair is not well delineated..
== END 2022-01-19 13:00 | disposition home or self-care (01) ==
LOC: HO.US 12:59
PROVIDERS: Visit Provider Surgery Vascular Surgery
DX: I73.9 Peripheral vascular disease, unspecified (principal); I71.4 Abdominal aortic aneurysm, without rupture
CPT/HCPCS: 76706; 93925

== ENCOUNTER 2022-01-24 10:49 | Outpatient (REF) | payer MEDICARE, SELFPAY ==
[2022-01-24 10:59] LABS: MANUAL DIFF FLAG NO
[2022-01-24 11:32] LABS: Basophils Absolute Auto 0.1 X10*3/uL (0.0-0.2); Basophils Percent Auto 0.6 % (0-2); Eosinophils Absolute Auto 0.6 X10*3/uL (0.0-0.4); Eosinophils Percent Auto 6.8 % (0-4); Hematocrit 31.9 % (37.0-47.0); Imm Gran Abs Auto 0.04 X10*3/uL (0.00-0.03); Imm Gran Pct Auto 0.5 % (0.0-0.4); Lymphocytes Absolute Auto 1.5 X10*3/uL (1.2-4.9); Lymphocytes Percent Auto 17.9 % (20-40); Mean Corpuscular HGB Conc 31.3 g/dl (31.0-35.0); Mean Corpuscular Hemoglobin 29.5 pg (27.0-33.0); Mean Corpuscular Volume 94.1 fL (80.0-98.0); Mean Platelet Volume 10.4 fL (9.4-12.3); Monocytes Absolute Auto 1.2 X10*3/uL (0.1-1.2); Monocytes Percent Auto 13.7 % (2-11); Neutrophils Absolute Auto 5.2 x10*3/uL (2.0-8.3); Neutrophils Percent Auto 60.5 % (45-73); Platelet Count 197 X10*3/uL (160-400); Red Blood Count 3.39 X10*6/uL (4.20-5.50); Red Cell Distribution Width 13.3 % (11.0-16.0); White Blood Count 8.6 X10*3/uL (4.8-10.8)
[2022-01-24 11:46] LABS: Anion Gap 14 (12-20); Blood Urea Nitrogen 56 mg/dL (9-16); Calcium 8.9 mg/dL (8.4-10.2); Carbon Dioxide 20 mmol/L (22-29); Chloride 112 mmol/L (96-108); Estimated Glomerular Filt Rate 14; Iron 92 mcg/dL (30-160); Percent Iron Saturation 30 % (15-50); Phosphorus 4.1 mg/dL (2.7-4.5); Potassium 4.6 mmol/L (3.3-5.1); Sodium 141 mmol/L (135-145); Total Iron Binding Capacity 306 mcg/dL (228-428); Unsaturated Iron Binding 214 ug/dL
[2022-01-24 12:09] LABS: Vitamin D 25-OH Total 40.4 ng/mL (>30)
[2022-01-24 12:41] LABS: Appearance Urine HAZY; Color Urine YELLOW; Glucose Urine UA NEG (NEG); Leukocyte Esterase Urine TRACE (NEG); Nitrite Urine NEG (NEG); PH 5.5 (5.0-8.0); Specific Gravity - Urine 1.025 (1.005-1.025); Urine Blood 1+ (NEG); Urine Ketones NEG (NEG); Urine Protein 3+ MG/DL (NEG-TRACE)
[2022-01-24 12:57] LABS: Bacteria Urine 1+ /LPF; Squamous Epithelial Cell Urine 1+ /LPF
[2022-01-24 12:58] LABS: Urine Talc Crystals TRACE /LPF
[2022-01-25 14:23] LABS: PTHI 142 pg/mL (16-77)
== END 2022-01-24 10:50 | disposition home or self-care (01) ==
LOC: HO.LAB 10:49
PROVIDERS: PCP Nurse Practitioner Family; Visit Provider Internal Medicine Nephrology
DX: N18.4 Chronic kidney disease, stage 4 (severe) (principal); I73.9 Peripheral vascular disease, unspecified; I71.4 Abdominal aortic aneurysm, without rupture; I83.11 Varicose veins of right lower extremity with inflammation
CPT/HCPCS: 36415; 80051; 81001; 81003; 82306; 82310; 82565; 83540; 83970; 84100; 84520; 85025; 99212

== ENCOUNTER 2022-07-06 12:00 | Outpatient (REF) | payer MEDICARE, SELFPAY ==
[2022-07-06 14:50] LABS: Anion Gap 14 (12-20); Blood Urea Nitrogen 65 mg/dL (9-16); Calcium 8.9 mg/dL (8.4-10.2); Carbon Dioxide 20 mmol/L (22-29); Chloride 111 mmol/L (96-108); Estimated Glomerular Filt Rate 10; Potassium 5.1 mmol/L (3.3-5.1); Sodium 140 mmol/L (135-145)
== END 2022-07-06 12:01 | disposition home or self-care (01) ==
LOC: HO.HMGCLDS 12:00
PROVIDERS: PCP Nurse Practitioner Family; Visit Provider Internal Medicine Nephrology
DX: N18.4 Chronic kidney disease, stage 4 (severe) (principal)
CPT/HCPCS: 36415; 80051; 82310; 82565; 84520

== ENCOUNTER 2022-10-21 11:57 | Outpatient (REF) | payer MEDICARE, SELFPAY ==
[2022-10-21 13:52] LABS: Anion Gap 14 (12-20); Blood Urea Nitrogen 61 mg/dL (9-16); Calcium 8.8 mg/dL (8.4-10.2); Carbon Dioxide 20 mmol/L (22-29); Chloride 111 mmol/L (96-108); Potassium 5.5 mmol/L (3.3-5.1); Sodium 139 mmol/L (135-145)
[2022-10-21 14:02] LABS: Estimated Glomerular Filt Rate 10
== END 2022-10-21 11:58 | disposition home or self-care (01) ==
LOC: HO.HMGCLDS 11:57
PROVIDERS: PCP Nurse Practitioner Family; Visit Provider Internal Medicine Nephrology
DX: I12.9 Hypertensive chronic kidney disease with stage 1 through stage 4 chronic kidney disease, or unspecified chronic kidney disease (principal); N18.4 Chronic kidney disease, stage 4 (severe)
CPT/HCPCS: 36415; 80051; 82310; 82565; 84520

== ENCOUNTER 2022-12-16 11:54 | Outpatient (REF) | payer MEDICARE, SELFPAY ==
[2022-12-16 13:29] LABS: MANUAL DIFF FLAG NO
[2022-12-16 13:36] LABS: Basophils Absolute Auto 0.1 X10*3/uL (0.0-0.2); Basophils Percent Auto 0.8 % (0-2); Eosinophils Absolute Auto 0.3 X10*3/uL (0.0-0.4); Eosinophils Percent Auto 3.8 % (0-4); Hematocrit 27.9 % (37.0-47.0); Hemoglobin 8.8 g/dl (12.0-16.0); Imm Gran Abs Auto 0.03 X10*3/uL (0.00-0.03); Imm Gran Pct Auto 0.3 % (0.0-0.4); Lymphocytes Absolute Auto 1.3 X10*3/uL (1.2-4.9); Lymphocytes Percent Auto 15.1 % (20-40); Mean Corpuscular HGB Conc 31.5 g/dl (31.0-35.0); Mean Corpuscular Hemoglobin 30.4 pg (27.0-33.0); Mean Corpuscular Volume 96.5 fL (80.0-98.0); Mean Platelet Volume 10.4 fL (9.4-12.3); Neutrophils Absolute Auto 5.9 x10*3/uL (2.0-8.3); Platelet Count 215 X10*3/uL (160-400); Red Blood Count 2.89 X10*6/uL (4.20-5.50); Red Cell Distribution Width 14.8 % (11.0-16.0); White Blood Count 8.6 X10*3/uL (4.8-10.8)
[2022-12-16 14:18] LABS: Anion Gap 15 (12-20); Blood Urea Nitrogen 62 mg/dL (9-16); Calcium 9.4 mg/dL (8.4-10.2); Carbon Dioxide 17 mmol/L (22-29); Chloride 112 mmol/L (96-108); Estimated Glomerular Filt Rate 10; Phosphorus 4.5 mg/dL (2.7-4.5); Potassium 5.4 mmol/L (3.3-5.1); Sodium 139 mmol/L (135-145)
== END 2022-12-16 11:55 | disposition home or self-care (01) ==
LOC: HO.HMGCLDS 11:54
PROVIDERS: Absent Provider Physician Assistant; PCP Nurse Practitioner Family; Visit Provider Internal Medicine Nephrology
DX: I12.9 Hypertensive chronic kidney disease with stage 1 through stage 4 chronic kidney disease, or unspecified chronic kidney disease (principal); N18.4 Chronic kidney disease, stage 4 (severe); D64.9 Anemia, unspecified; R19.4 Change in bowel habit
CPT/HCPCS: 36415; 80051; 82310; 82565; 84100; 84520; 85025

== ENCOUNTER 2022-12-24 08:19 | Inpatient (IN) | payer MEDICARE, SELFPAY ==
[2022-12-24] VITALS (7 sets, daily range): BP systolic 129–167; BP diastolic 62–79; PULSE 64–84; RESP 15–20; TEMP 35.8–37.1; O2SAT 92–97; BMI 26.4; BMI 28.2
--- NOTE | ~2022-12-24 | XR_ITS ---
EXAMINATION: XR CHEST CLINICAL INFORMATION: Shortness of breath. COMPARISON: Most recent CT chest dated 09/25/2018. TECHNIQUE: Frontal view of the chest was obtained. FINDINGS: Interstitial and pulmonary vascular prominence with mild patchy bilateral airspace opacities and small bilateral pleural effusions, new when compared to the prior chest CT. Findings could indicate fluid overload. No pneumothorax. Stable cardiomediastinal silhouette. Sternal wires. Right axillar surgical clips. XR/XR chest 1V IMPRESSION: Interstitial and pulmonary vascular prominence with mild patchy bilateral airspace opacities and small bilateral pleural effusions, new when compared to the prior chest CT. Findings could indicate fluid overload.
--- NOTE | 2022-12-24 08:34 | ECG_ITS ---
Test Reason : SOB Blood Pressure : / mmHG Vent. Rate : 066 BPM Atrial Rate : 066 BPM P-R Int : 160 ms QRS Dur : 098 ms QT Int : 442 ms P-R-T Axes : 029 008 050 degrees QTc Int : 463 ms Normal sinus rhythm Nonspecific ST abnormality Abnormal ECG When compared with ECG of 23-SEP-2018 10:22, T wave inversion no longer evident in Inferior leads T wave inversion no longer evident in Anterolateral leads Referred By: Micky King Electronically Signed By:VICTORIANO HEMPHILL
--- NOTE | 2022-12-24 08:40 | ED.SOB ---
HPI - SOB/Dyspnea General Chief Complaint: Dyspnea Stated Complaint: SOB Time Seen by Provider: 12/24/22 08:23 Source: patient and EMS Mode of arrival: EMS Limitations: no limitations History of Present Illness HPI Narrative: 87-year-old female with PMHx CKD, CAD, DM, HTN brought in by ambulance for evaluation of shortness of breath. Patient started to shortness of breath with exertion for the past week, patient also noted that she have to use 2 pillows at night but still wakes up with difficulty breathing, swelling of bilateral ankle mostly at night time, patient declined any recent travel, no lower extremities tenderness, no history of DVT, no history of PE. Remote history of smoking cigarettes for 2-3 years. Decline history of COPD, asthma, or emphysema. No fever, no chills, no sick contact, no coughing or sputum production. Related Data Home Medications Medication Instructions Recorded Confirmed amlodipine 10 mg tablet 10 mg PO DAILY 09/26/21 12/24/22 anastrozole 1 mg tablet 1 mg PO DAILY 09/26/21 12/24/22 ascorbic acid (vitamin C) 500 mg 1,000 mg PO DAILY 09/26/21 12/24/22 capsule pantoprazole 40 mg tablet,delayed 40 mg PO DAILY 09/26/21 12/24/22 release sitagliptin phosphate 25 mg tablet 25 mg PO DAILY 12/08/21 12/24/22 (Januvia) acetaminophen 325 mg capsule 650 mg PO Q6H PRN Fever Or Pain 12/24/22 12/24/22 aspirin 81 mg tablet,delayed 81 mg PO DAILY 12/24/22 12/24/22 release calcium carbonate 600 mg calcium 600 mg PO DAILY 12/24/22 12/24/22 (1,500 mg) tablet cholecalciferol (vitamin D3) 25 25 mcg PO DAILY 12/24/22 12/24/22 mcg (1,000 unit) capsule (Vitamin D3) cyanocobalamin (vitamin B-12) 1,000 mcg PO DAILY 12/24/22 12/24/22 1,000 mcg tablet metoprolol succinate 50 mg 50 mg PO DAILY 12/24/22 12/24/22 tablet,extended release 24 hr sodium bicarbonate 650 mg tablet 650 mg PO DAILY 12/24/22 12/24/22 vitamin E 400 unit tablet 400 unit PO DAILY 12/24/22 12/24/22 Previous Rx's Medication Instructions Recorded atorvastatin 80 mg tablet 80 mg PO DAILY 30 days #30 tabs 10/06/21 Allergies Allergy/AdvReac Type Severity Reaction Status Date / Time No Known Allergies Allergy Verified 01/24/22 11:24 [No Known Allergies*] Review of Systems Review of Systems: All other systems are reviewed and are negative Constitutional: Reports as per HPI and Reports no additional constitutional complaints Eyes: Reports as per HPI and Reports no additional eye complaints Reports system reviewed and no additional complaints, except as documented Cardiovascular: Reports as per HPI and Reports no additional cardiovascular complaints Respiratory: Reports as per HPI and Reports no additional respiratory complaints Gastrointestinal: Reports as per HPI and Reports no additional gastrointestinal complaints Genitourinary: Reports no additional female genitourinary complaints Musculoskeletal: Reports no additional musculoskeletal complaints Skin/Breast: Reports system reviewed and no additional complaints, except as docu Psychiatric: Reports no additional psychiatric complaints Endocrine: Reports no additional endocrine complaints Hematologic/Lymphatic: Reports no additional hematologic/lymphatic complaints Allergic/Immunologic: Reports no additional allergic/immunologic complaints Reports system reviewed and no additional complaints, except as documented and Reports Abnormal speech present [facility] Past Medical History Medical History Cellulitis CKD (chronic kidney disease) Coronary artery disease Diabetes Hypertension PAD (peripheral artery disease) Surgical History Hx of cardiac catheterization (~05/2020) Hx of colonoscopy Hx of endoscopy Family History Family History Father Lung cancer Stomach ulcer Sister Colon cancer, Onset Age: 80 Breast cancer Heart disease HTN (hypertension) Mother Cirrhosis of liver Family/Other Stomach ulcer Social History Social History Household Members: Children Housing: House Do you presently have visiting nurse or other home services: No Alcohol intake: never Patient Tobacco Use Status: Former Tobacco user Smoked in Last 30 Days: No Use of substances other than those prescribed or required for medical reasons: No Advance Directives: Yes Advance Directives on File: Yes Advance Directives Date on File: 09/27/21 service: No Current occupational status: retired Physical Exam Vital Signs: Vital Signs: Last Vital Signs Temp 97.6 F 12/24/22 08:26 Pulse 71 12/24/22 08:38 Resp 17 12/24/22 08:38 BP 158/79 H 12/24/22 08:38 Pulse Ox 95 12/24/22 08:38 O2 Del Method Nasal Cannula 12/24/22 08:38 O2 Flow Rate 6 12/24/22 08:38 Oxygen Flow Rate 6 12/24/22 08:26 BMI result Body Mass Index 26.4 Vital signs have been reviewed as appeared to be correct. Blood pressure normal. Heart rate normal. Respiration rate normal. Temperature normal. Oxygen saturation normal. Appearance: Alert. Oriented X3. No acute distress. Head: Normal external exam. Normocephalic. Atraumatic. No Ramos signs noted. No raccoon eyes noted Eyes: PERRLA. EOMI. Conjunctiva and sclera normal. Eyelids normal. ENT: TM's Normal. Pharynx normal. Uvula midline. Moist mucous membranes. No trismus noted. No drooling noted. No muffled voice noted. Neck: Normal inspection. Neck supple. FROM. No adenopathy. Thyroid Normal. No meningeal signs. No neck mass noted. CVS: Normal heart rate and rhythm. Heart sound normal. No murmurs noted. Pulses normal throughout. Respiratory: No respiratory distress. Painless inspiration. Breath sounds normal. Bilateral both lower lung field rales. Chest nontender. No accessory muscle usage noted or decreased air movement noted. Abdomen: Soft and nontender. Bowel sounds normal in all 4 quadrants. No distention noted. No organomegaly noted. No visible injury noted. Back: No CVA tenderness. Full range of motion noted. Skin: Skin warm and dry. Normal skin color. Normal skin turgor. No rashes/lesions/lacerations noted. Extremities: +1 lower extremity edema. Extremities exhibit normal range of motion. Extremities nontender. Neuro: Oriented X 3. Cranial nerve exam: II-XII are grossly intact No motor deficit. No sensory deficit. Reflexes normal. Course Course Course Narrative: 87-year-old female with history of stage III CKD presented with shortness of breath and hypoxia physical exam and labs are consistent with CHF parents were start the patient on nitro as BP allows, gentle diuresis with Lasix, admit. Medical Decision Making Differential Diagnosis Differential Diagnoses: The differential diagnosis associated with the presentation includes (Acute on chronic renal failure, CHF, pneumonia, pneumothorax, pleural effusion, ACS, electrolyte abnormalities, severe anemia, UTI.) Admission/Observation Consideration of admission/observation: Escalation of care including admission/observation considered Consult Healthcare Provider Management of the patient was discussed with: Hospitalist (Dr. Harding) Lab Data MDM Lab Attestation statement: I reviewed the patient's lab results. 12/24/22 09:01 12/24/22 09:01 Labs: Lab Results 12/24/22 12/24/22 12/24/22 Range/Units 09:01 09:01 09:01 WBC 7.5 (4.8-10.8) X10*3/uL RBC 3.02 L (4.20-5.50) X10*6/uL Hgb 8.9 L (12.0-16.0) g/dl Hct 29.1 L (37.0-47.0) % MCV 96.4 (80.0-98.0) fL MCH 29.5 (27.0-33.0) pg MCHC 30.6 L (31.0-35.0) g/dl RDW 15.1 (11.0-16.0) % Plt Count 210 (160-400) X10*3/uL MPV 9.6 (9.4-12.3) fL Immature Gran % (Auto) 0.5 H (0.0-0.4) % Neut % (Auto) 77.5 H (45-73) % Lymph % (Auto) 9.7 L (20-40) % [place] % (Auto) 8.0 (2-11) % Eos % (Auto) 3.4 (0-4) % Baso % (Auto) 0.9 (0-2) % Lymph # (Auto) 0.7 L (1.2-4.9) X10*3/uL [place] # (Auto) 0.6 (0.1-1.2) X10*3/uL Eos # (Auto) 0.3 (0.0-0.4) X10*3/uL Baso # (Auto) 0.1 (0.0-0.2) X10*3/uL Abs Immat Gran (auto) 0.04 H (0.00-0.03) X10*3/uL Absolute Neuts (auto) 5.8 (2.0-8.3) x10*3/uL Absolute Nucleated RBC 0.000 (0.0-0.012) X10*3/uL Nucleated RBC % (auto) 0.0 (0.0-0.2) /100WBC Sodium 139 (135-145) mmol/L Potassium 4.9 (3.3-5.1) mmol/L Chloride 110 H (96-108) mmol/L Carbon Dioxide 19 L (22-29) mmol/L Anion Gap 15 (12-20) BUN 53 H (9-16) mg/dL Creatinine 4.43 H* (0.5-1.4) mg/dL Estim Creat Clear Calc 9.2 Estimated GFR 9 Random Glucose 136 H (60-115) mg/dL Lactic Acid (0.5-2.0) mmol/L Calcium 9.0 (8.4-10.2) mg/dL Total Bilirubin 0.7 (0.0-1.0) mg/dL Direct Bilirubin 0.2 (0.0-0.5) mg/dL AST 13 (5-31) U/L ALT 7 (0-31) U/L Alkaline Phosphatase 95 (39-117) U/L Troponin I High Sens 42.1 H (<3.5-17.0) ng/L B-Natriuretic Peptide (<100) pg/mL Total Protein 6.8 (6.5-8.0) g/dL Albumin 3.6 (3.5-5.0) g/dL Lipase 66 (8-78) U/L Influenza Type A (PCR) (Negative) Influenza Type B (PCR) (Negative) RSV RNA Qual (PCR) (Negative) SARS-CoV-2 RNA (RT-PCR) (Negative) 12/24/22 12/24/22 12/24/22 Range/Units 09:01 09:01 09:01 WBC (4.8-10.8) X10*3/uL RBC (4.20-5.50) X10*6/uL Hgb (12.0-16.0) g/dl Hct (37.0-47.0) % MCV (80.0-98.0) fL MCH (27.0-33.0) pg MCHC (31.0-35.0) g/dl RDW (11.0-16.0) % Plt Count (160-400) X10*3/uL MPV (9.4-12.3) fL Immature Gran % (Auto) (0.0-0.4) % Neut % (Auto) (45-73) % Lymph % (Auto) (20-40) % [place] % (Auto) (2-11) % Eos % (Auto) (0-4) % Baso % (Auto) (0-2) % Lymph # (Auto) (1.2-4.9) X10*3/uL [place] # (Auto) (0.1-1.2) X10*3/uL Eos # (Auto) (0.0-0.4) X10*3/uL Baso # (Auto) (0.0-0.2) X10*3/uL Abs Immat Gran (auto) (0.00-0.03) X10*3/uL Absolute Neuts (auto) (2.0-8.3) x10*3/uL Absolute Nucleated RBC (0.0-0.012) X10*3/uL Nucleated RBC % (auto) (0.0-0.2) /100WBC Sodium (135-145) mmol/L Potassium (3.3-5.1) mmol/L Chloride (96-108) mmol/L Carbon Dioxide (22-29) mmol/L Anion Gap (12-20) BUN (9-16) mg/dL Creatinine (0.5-1.4) mg/dL Estim Creat Clear Calc Estimated GFR Random Glucose (60-115) mg/dL Lactic Acid 0.8 (0.5-2.0) mmol/L Calcium (8.4-10.2) mg/dL Total Bilirubin (0.0-1.0) mg/dL Direct Bilirubin (0.0-0.5) mg/dL AST (5-31) U/L ALT (0-31) U/L Alkaline Phosphatase (39-117) U/L Troponin I High Sens (<3.5-17.0) ng/L B-Natriuretic Peptide 814 H (<100) pg/mL Total Protein (6.5-8.0) g/dL Albumin (3.5-5.0) g/dL Lipase (8-78) U/L Influenza Type A (PCR) NEGATIVE (Negative) Influenza Type B (PCR) NEGATIVE (Negative) RSV RNA Qual (PCR) NEGATIVE (Negative) SARS-CoV-2 RNA (RT-PCR) NEGATIVE (Negative) Independent Interpretation I performed an independent interpretation of an: EKG (Normal sinus rhythm at 66 beats per minute, normal axis deviation, normal intervals, no ST-T changes.) and Plain X-Ray (Interstitial and pulmonary vascular prominence with mild patchy bilateral airspace opacities and small bilateral pleural effusions, new when compared to the prior chest CT. Findings could indicate fluid overload.) Radiology Impression Discussion of test interpretation with radiology: I have reviewed the radiologist's reading. Discharge Plan Discharge Clinical Impression: CKD (chronic kidney disease), CHF (congestive heart failure) Patient Disposition: Admitted As Inpatient
[2022-12-24 09:09] LABS: MANUAL DIFF FLAG NO
[2022-12-24 09:10] LABS: Basophils Absolute Auto 0.1 X10*3/uL (0.0-0.2); Basophils Percent Auto 0.9 % (0-2); Eosinophils Absolute Auto 0.3 X10*3/uL (0.0-0.4); Eosinophils Percent Auto 3.4 % (0-4); Hematocrit 29.1 % (37.0-47.0); Hemoglobin 8.9 g/dl (12.0-16.0); Imm Gran Abs Auto 0.04 X10*3/uL (0.00-0.03); Imm Gran Pct Auto 0.5 % (0.0-0.4); Lymphocytes Absolute Auto 0.7 X10*3/uL (1.2-4.9); Lymphocytes Percent Auto 9.7 % (20-40); Mean Corpuscular HGB Conc 30.6 g/dl (31.0-35.0); Mean Corpuscular Hemoglobin 29.5 pg (27.0-33.0); Mean Corpuscular Volume 96.4 fL (80.0-98.0); Mean Platelet Volume 9.6 fL (9.4-12.3); Monocytes Absolute Auto 0.6 X10*3/uL (0.1-1.2); Neutrophils Absolute Auto 5.8 x10*3/uL (2.0-8.3); Neutrophils Percent Auto 77.5 % (45-73); Platelet Count 210 X10*3/uL (160-400); Red Blood Count 3.02 X10*6/uL (4.20-5.50); Red Cell Distribution Width 15.1 % (11.0-16.0); White Blood Count 7.5 X10*3/uL (4.8-10.8)
[2022-12-24 09:20] LABS: Lactic Acid 0.8 mmol/L (0.5-2.0)
[2022-12-24 09:31] LABS: B Type Natriuretic Peptide 814 pg/mL (<100)
[2022-12-24 09:32] LABS: Troponin-I High Sensitivity 42.1 ng/L (<3.5-17.0)
[2022-12-24 09:35] LABS: Alanine Aminotransferase 7 U/L (0-31); Albumin Level 3.6 g/dL (3.5-5.0); Alkaline Phosphatase 95 U/L (39-117); Anion Gap 15 (12-20); Aspartate Amino Transferase 13 U/L (5-31); Bilirubin Direct 0.2 mg/dL (0.0-0.5); Bilirubin Total 0.7 mg/dL (0.0-1.0); Blood Urea Nitrogen 53 mg/dL (9-16); Carbon Dioxide 19 mmol/L (22-29); Chloride 110 mmol/L (96-108); Creatinine Clr Calc Pharmacy 9.2; Estimated Glomerular Filt Rate 9; Glucose Random 136 mg/dL (60-115); Lipase 66 U/L (8-78); Potassium 4.9 mmol/L (3.3-5.1); Sodium 139 mmol/L (135-145); Total Protein 6.8 g/dL (6.5-8.0)
[2022-12-24 09:48] LABS: Influenza A PCR NEGATIVE (Negative); Influenza B PCR NEGATIVE (Negative); Resp Syncy Virus RNA Qual PCR NEGATIVE (Negative); SARS COV2 PCR INHOUSE NEGATIVE (Negative)
--- NOTE | 2022-12-24 10:21 | PHA.MEDREC ---
Pharmacy Consult ? Medication Reconciliation Pharmacy has completed the medication reconciliation. Spoke with patient and daughter who had a list and confirmed medications.
[2022-12-24] MEDS: Nitroglycerin 2 % Oint 1 GM Packet 1 INCH TRANSDERMA (10:38)
[2022-12-24 10:46] LABS: Appearance Urine Clear; Color Urine Yellow; Glucose Urine UA 250 mg/dL (Negative); Leukocyte Esterase Urine Negative (Negative); Nitrite Urine Negative (Negative); Specific Gravity - Urine 1.015 (1.005-1.025); UMIC TRIGGER UACC YES; Urine Blood Negative (Negative); Urine Ketones Negative (Negative); Urine Protein >=1000 (4+) mg/dL (Neg-Trace)
[2022-12-24 10:57] LABS: Bacteria Urine Trace (None Seen); Hyaline Casts Urine 0-2 /LPF (0-2); RBC Urine 0-2 /HPF (0-2); WBC Urine 0-5 /HPF (0-5)
--- NOTE | 2022-12-24 11:20 | PM.IMHP ---
History of Present Illness Date of Service: 12/24/22 Attending physician on admission: [facility] Chief Complaint: SOB Pt is a 87-year-old female with a PMH significant for CAD, IL and double bypass in 2019, CKD 4, HTN, hx of breast cancer, and krz-nuibwdg-twumrjfat diabetes?who presents to the ED with?worsening shortness of breath x5 days. Patient states that she began noticing dyspnea with exertion 5 days ago. Has recently been soap and that she becomes short of breath with minimal exertion like walking across the room. Patient endorses orthopnea and has been sleeping with 2 pillows behind her back. Patient also has been experiencing swelling in her ankles at night. Notes that her shortness of breath decreases when she is sitting upright. Patient has an extensive cardiac history with an IL and double bypass surgery in 2019, but no prior diagnosis of CHF. Patient states she has never experienced symptoms like this before. Says she had an echocardiogram a few years ago at [facility] but is unclear exactly how long ago that was. Has also experienced fatigue, and some light headedness and fogginess. Patient denies chest pain/pressure, palpitations. No fever, chills, nausea, vomiting. Denies changes to bowel or bladder habits. No abdominal pain. In the ED patient was afebrile but slightly hypertensive at 158/79. Labs were significant for H&H of 8.9/29.1, initial troponin elevated at 42.1, BNP 814. Electrolytes unremarkable. Hepatic function baseline. UA negative for UTI. CXR showed interstitial and pulmonary vascular prominence with mild patchy bilateral airspace opacities and small bilateral pleural effusions, new and suggestive of fluid overload. EKG demonstrated normal sinus rhythm without evidence ST elevations or depressions. Pt was treated with nitroglycerin patch. Pt will be admitted to the hospital for treatment and further evaluation of new onset CHF with IV diuretics. Review of Systems Review of Systems: Shortness of breath x5 days Orthopnea Lightheadedness, fogginess Bilateral lower leg edema at ankles at night Denies chest pain/pressure, palpitations No fever, chills, nausea, vomiting, diarrhea, abdominal pain Yes all other systems are reviewed and are negative [facility] Medical History Cellulitis CKD (chronic kidney disease) Coronary artery disease Diabetes Hypertension PAD (peripheral artery disease) Family History Father Lung cancer Stomach ulcer Sister Colon cancer, Onset Age: 80 Breast cancer Heart disease HTN (hypertension) Mother Cirrhosis of liver Family/Other Stomach ulcer Surgical History Hx of cardiac catheterization (~05/2020) Hx of colonoscopy Hx of endoscopy Social History Household Members: Children Housing: House Do you presently have visiting nurse or other home services: No Alcohol intake: never Patient Tobacco Use Status: Former Tobacco user Smoked in Last 30 Days: No Use of substances other than those prescribed or required for medical reasons: No Advance Directives: Yes Advance Directives on File: Yes Advance Directives Date on File: 09/27/21 service: No Current occupational status: retired [employer] Allergies Allergy/AdvReac Type Severity Reaction Status Date / Time No Known Allergies Allergy Verified 01/24/22 11:24 [No Known Allergies*] Active Medications: Current Medications Pharmacy Consult (Consult Rx Perform Med Rec) 1 each MISCELLANE ONCE PRN PRN Reason: Consult order Home Medications Medication Instructions Recorded Confirmed Last Taken Type amlodipine 10 mg tablet 10 mg PO DAILY 09/26/21 12/24/22 Unknown History anastrozole 1 mg tablet 1 mg PO DAILY 09/26/21 12/24/22 Unknown History ascorbic acid (vitamin C) 500 mg 1,000 mg PO DAILY 09/26/21 12/24/22 Unknown History capsule pantoprazole 40 mg tablet,delayed 40 mg PO DAILY 09/26/21 12/24/22 Unknown History release sitagliptin phosphate 25 mg tablet 25 mg PO DAILY 12/08/21 12/24/22 Unknown History (Januvia) acetaminophen 325 mg capsule 650 mg PO Q6H PRN Fever Or Pain 12/24/22 12/24/22 Unknown History aspirin 81 mg tablet,delayed 81 mg PO DAILY 12/24/22 12/24/22 Unknown History release calcium carbonate 600 mg calcium 600 mg PO DAILY 12/24/22 12/24/22 Unknown History (1,500 mg) tablet cholecalciferol (vitamin D3) 25 25 mcg PO DAILY 12/24/22 12/24/22 Unknown History mcg (1,000 unit) capsule (Vitamin D3) cyanocobalamin (vitamin B-12) 1,000 mcg PO DAILY 12/24/22 12/24/22 Unknown History 1,000 mcg tablet metoprolol succinate 50 mg 50 mg PO DAILY 12/24/22 12/24/22 Unknown History tablet,extended release 24 hr sodium bicarbonate 650 mg tablet 650 mg PO DAILY 12/24/22 12/24/22 Unknown History vitamin E 400 unit tablet 400 unit PO DAILY 12/24/22 12/24/22 Unknown History Physical Exam Vital Signs and Narrative: Vital Signs: Last Vital Signs Temp 97.6 F 12/24/22 08:26 Pulse 72 12/24/22 10:28 Resp 15 12/24/22 10:28 BP 156/64 H 12/24/22 10:28 Pulse Ox 93 12/24/22 10:28 O2 Del Method Nasal Cannula 12/24/22 10:28 O2 Flow Rate 6 12/24/22 10:28 Oxygen Flow Rate 6 12/24/22 08:26 BMI result Body Mass Index 26.4 Constitutional: Alert, in no acute distress. Mental Status: Oriented to person, place and time. Eyes: Pupils are equal, round, and reactive to light. Ear, Nose, and Throat: Oropharynx clear, mucous membranes moist. Ears and nose without deformities. Trachea midline. Respiratory: Normal respiratory effort. Bibasilar rales. Cardiovascular: S1, S2 regular. No murmurs, rubs, or gallops. Gastrointestinal: Abdomen soft, non-tender, non-distended. Normal bowel sounds. Neurologic: Cranial nerves II-XII are grossly intact bilaterally. No focal neurological deficits. Moves all extremities spontaneously. Skin: No rashes or lesions noted. Musculoskeletal: No cyanosis or clubbing. Extremities: No edema. Psychiatric: Normal mood and affect. Results Labs 12/24/22 09:01 12/24/22 09:01 Labs: Laboratory Results - last 24 hr 12/24/22 12/24/22 12/24/22 09:01 09:01 09:01 MCV 96.4 MCH 29.5 MCHC 30.6 L RDW 15.1 Plt Count 210 MPV 9.6 Immature Gran % (Auto) 0.5 H Neut % (Auto) 77.5 H Lymph % (Auto) 9.7 L [place] % (Auto) 8.0 Eos % (Auto) 3.4 Baso % (Auto) 0.9 Lymph # (Auto) 0.7 L [place] # (Auto) 0.6 Eos # (Auto) 0.3 Baso # (Auto) 0.1 Abs Immat Gran (auto) 0.04 H Absolute Neuts (auto) 5.8 Absolute Nucleated RBC 0.000 Nucleated RBC % (auto) 0.0 Anion Gap 15 Estim Creat Clear Calc 9.2 Estimated GFR 9 Random Glucose 136 H Lactic Acid Calcium 9.0 Total Bilirubin 0.7 Direct Bilirubin 0.2 AST 13 ALT 7 Alkaline Phosphatase 95 Troponin I High Sens 42.1 H B-Natriuretic Peptide Total Protein 6.8 Albumin 3.6 Lipase 66 Urine Color Urine Appearance Urine pH Ur Specific [place] Urine Protein Urine Glucose (UA) Urine Ketones Urine Blood Urine Nitrite Ur Leukocyte Esterase Urine RBC Urine WBC Ur Squamous Epith Cells Urine Bacteria Hyaline Casts Influenza Type A (PCR) Influenza Type B (PCR) RSV RNA Qual (PCR) SARS-CoV-2 RNA (RT-PCR) 12/24/22 12/24/22 12/24/22 09:01 09:01 09:01 MCV MCH MCHC RDW Plt Count MPV Immature Gran % (Auto) Neut % (Auto) Lymph % (Auto) [place] % (Auto) Eos % (Auto) Baso % (Auto) Lymph # (Auto) [place] # (Auto) Eos # (Auto) Baso # (Auto) Abs Immat Gran (auto) Absolute Neuts (auto) Absolute Nucleated RBC Nucleated RBC % (auto) Anion Gap Estim Creat Clear Calc Estimated GFR Random Glucose Lactic Acid 0.8 Calcium Total Bilirubin Direct Bilirubin AST ALT Alkaline Phosphatase Troponin I High Sens B-Natriuretic Peptide 814 H Total Protein Albumin Lipase Urine Color Urine Appearance Urine pH Ur Specific [place] Urine Protein Urine Glucose (UA) Urine Ketones Urine Blood Urine Nitrite Ur Leukocyte Esterase Urine RBC Urine WBC Ur Squamous Epith Cells Urine Bacteria Hyaline Casts Influenza Type A (PCR) NEGATIVE Influenza Type B (PCR) NEGATIVE RSV RNA Qual (PCR) NEGATIVE SARS-CoV-2 RNA (RT-PCR) NEGATIVE 12/24/22 10:37 MCV MCH MCHC RDW Plt Count MPV Immature Gran % (Auto) Neut % (Auto) Lymph % (Auto) [place] % (Auto) Eos % (Auto) Baso % (Auto) Lymph # (Auto) [place] # (Auto) Eos # (Auto) Baso # (Auto) Abs Immat Gran (auto) Absolute Neuts (auto) Absolute Nucleated RBC Nucleated RBC % (auto) Anion Gap Estim Creat Clear Calc Estimated GFR Random Glucose Lactic Acid Calcium Total Bilirubin Direct Bilirubin AST ALT Alkaline Phosphatase Troponin I High Sens B-Natriuretic Peptide Total Protein Albumin Lipase Urine Color Yellow Urine Appearance Clear Urine pH 6.0 Ur Specific [place] 1.015 Urine Protein >=1000 (4+) H Urine Glucose (UA) 250 H Urine Ketones Negative Urine Blood Negative Urine Nitrite Negative Ur Leukocyte Esterase Negative Urine RBC 0-2 Urine WBC 0-5 Ur Squamous Epith Cells 3-5 Urine Bacteria Trace Hyaline Casts 0-2 Influenza Type A (PCR) Influenza Type B (PCR) RSV RNA Qual (PCR) SARS-CoV-2 RNA (RT-PCR) Imaging Radiologist's Impressions: Impressions Chest X-Ray 12/24/22 09:10 IMPRESSION: Interstitial and pulmonary vascular prominence with mild patchy bilateral airspace opacities and small bilateral pleural effusions, new when compared to the prior chest CT. Findings could indicate fluid overload. Assessment and Plan (1) CKD (chronic kidney disease): Status: Acute (2) CHF (congestive heart failure): Status: Acute Plan Pt is a 87-year-old female with a PMH significant for CAD, IL and double bypass in 2019, CKD 4, HTN, hx of breast cancer, and vdq-mdujfun-mttwhxtyu diabetes?who presents to the ED with?worsening shortness of breath x5 days. Pt will be admitted to the hospital for treatment and further evaluation of new onset CHF with IV diuretics. New onset CHF Patient with SOB x5 days, orthopnea, lower leg swelling in ankles, elevated BNP, CXR showing fluid overload Furosemide 40 mg IV qd Follow lytes, MG, I/O Daily weights, low-salt diet Echocardiogram Cardiology consult Admit to telemetry CKD stage 4 Patient's creatinine 4.43, around baseline Nephrology consult Heparin for DVT prophylaxis Elevated troponin Initial troponin 42.1 Pt asymptomatic: Denies chest pain/pressure, palpitations. EKG without evidence of ST elevations or depressions or acute ischemia Will get repeat troponin Anemia of chronic disease Patient's H&H 8.9/29.1, near baseline Follow CBC Tzw-qorzjke-aigfhiqgr diabetes Continue Januvia SSI Diabetic diet CAD Continue aspirin, statin HTN Continue amlodipine Hx of breast cancer Continue anastrozole GERD Continue pantoprazole Full Code Attending:?Dr. Christian DVT Prophylaxis: Heparin Pt will require a hospitalization of at least two nights for treatment with IV diuretics of?new onset CHF. Time Spent With Patient Time: Total time managing care of this patient today ____ minutes. Quality Stroke Does the patient have a stroke diagnosis?: No VTE Prior VTE?: No VTE Risk Level:: Medical - moderate - high VTE Device Contraindication: Treatment Not Indicated VTE Drug Contraindication: N/A - Med Ordered
[2022-12-24] MEDS: Heparin Sodium,Porcine 5,000 UNIT/ML VIAL 5000 UNIT SUBCUT ×2 (13:10→22:26)
[2022-12-24] MEDS: Furosemide 40 MG/4 ML VIAL IVPUSH (13:11)
[2022-12-24 13:40] LABS: Troponin-I High Sensitivity 40.2 ng/L (<3.5-17.0)
[2022-12-24 18:17] LABS: Glucose, Whole Blood 93 mg/dL (60-115)
[2022-12-24 20:16] LABS: Glucose, Whole Blood 123 mg/dL (60-115)
[2022-12-24] MEDS: 0.9 % Sodium Chloride Flush 3 ML SYRINGE IVFLUSH (22:27)
[2022-12-25 04:00] VITALS: BP 143/76; PULSE 73; RESP 18; TEMP 36.4; O2SAT 97
[2022-12-25] MEDS: Omeprazole 20 MG CAPSULE.DR PO (05:40)
--- NOTE | 2022-12-25 07:00 | CA_ITS ---
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 The visually estimated ejection fraction is between 65-70%. - The basal inferior segment is akinetic. - There is moderate calcification of the aortic valve. - There is mild mitral annular calcification. - Mild pulmonary hypertension is present. Findings Procedure Information Contrast agent, definity, is being given per protocol without apparent complications. Left Ventricle Normal left ventricular cavity size. There is moderately increased left ventricular wall thickness. The left ventricular systolic function is normal. The visually estimated ejection fraction is between 65-70%. There is no evidence of regional wall motion abnormalities. E/E prime ratio is >15, consistent with elevated filling pressures. Evidence suggests grade II (moderate) diastolic dysfunction. There is severe septal asymmetric hypertrophy. Wall Motion Rest Echo Findings The basal inferior segment is akinetic. Right Ventricle Mildly increased right ventricular cavity size. Visually no overt systolic dysfunction. Atria The left atrium is mildly dilated. The right atrium is normal in size. Aortic Valve There is a normal trileaflet aortic valve. There is moderate calcification of the aortic valve. There is no aortic valve stenosis. There is trace (trivial) aortic valve regurgitation. Mitral Valve There is mild mitral annular calcification. There is trace mitral valve regurgitation. There is no mitral valve stenosis. Pulmonic Valve The pulmonic valve is likely normal. Tricuspid Valve Normal tricuspid valve structure. There is mild tricuspid valve regurgitation. Mild pulmonary hypertension is present. Great Vessels The asc aorta is normal in size. Small plaque is seen in the sino tubular ridge. Venous The inferior vena cava is normal in size and collapses greater than 50% with inspiration. Pericardium/Pleural There is no evidence of pericardial effusion. Prior Study Comparison Changes noted compared to prior study dated: 01/22/2019. see comment on wall motion. Measurements 2D Linear Measurements IVSd: 1.87 0.6-0.9/0.6-1.0 cm LVIDd: 3.96 3.9-5.3/4.2-5.9 cm LVIDd Index: 2.10 2.4-3.2/2.2-3.1 cm/m2 LVIDs: 2.59 2.0-3.6 cm LVPWd: 1.26 0.7-1.1 cm LA Diam: 4.20 2.7-3.8/3.0-4.0 cm LAIDs Index: 2.22 1.5-2.3 cm/m2 LV Mass: 306.07 67-162/88-224 g LV Mass Index: 161.94 43-95/49-115 g/m2 LVOT Diam: 2.20 3.0+(-)1.3 cm 2D Systolic Function EF 2C: 63.30 >55% Mitral Valve MV VTI: 0.49 MV Pk Ozzie: 1.66 MV Mn Ozzie: 1.05 MV Pk Grad: 11.00 MV Mn Grad: 5.00 MV Pk E: 1.37 MV PK A: 1.83 MV Decel Time: 244.00 E/A: 0.70 E'Lateral: 5.98 E'Medial: 4.68 E/E' Med: 29.30 E/E' Lat: 22.90 PHT: 71.00 MVA PHT: 3.10 MVA Continuity: 2.42 Decel [place]: 5.60 Aortic Valve AoV Pk Ozzie: 1.98 AoV Mn [place]zz[place]: 1.40 AoV VTI: 0.49 AoV Pk Grad: 16.00 Aov Mn Grad: 9.00 BRAULIO Cont.VTI: 2.40 LVOT LVOT Pk [place]zzie: 1.12 LVOT Mn [place]zz[place]: 0.90 LVOT VTI: 0.31 LVOT Pk Grad: 5.00 LVOT Mn Grad: 3.00 LVOT Diam: 2.20 LVOT Area: 3.80 Diastolic Function MV Pk E: 1.37 MV Pk A: 1.83 E/A: 0.70 E'Medial: 4.68 E/E' Med: 29.30 E' Laterial: 5.98 E/E' Lat: 22.90 Tricuspid Valve TR Pk Ozzie: 3.09 TR Pk Grad: 38.00 RA Press: 3.00 RVSP: 41.00 Great Vessels Aorta Sinus of Valsalva: 3.20 2.0-3.5 cm Ao Asc: 3.60 2.1-3.4 cm Pulmonary Veins Pulm Vein S/D 0.80 Pulmonary Valve PV Pk Ozzie: 1.22 Peak PV Grad: 6.00 Updated in Other Vendor System with Status of Final Puneet Flanagan MD electronically signed on 12/25/2022 4:26:55 PM with status of Final
[2022-12-25 07:24] LABS: Hematocrit 27.1 % (37.0-47.0); Hemoglobin 8.5 g/dl (12.0-16.0); Mean Corpuscular HGB Conc 31.4 g/dl (31.0-35.0); Mean Corpuscular Hemoglobin 30.5 pg (27.0-33.0); Mean Corpuscular Volume 97.1 fL (80.0-98.0); Mean Platelet Volume 9.7 fL (9.4-12.3); Platelet Count 188 X10*3/uL (160-400); Red Blood Count 2.79 X10*6/uL (4.20-5.50); White Blood Count 8.3 X10*3/uL (4.8-10.8)
[2022-12-25 07:46] VITALS: BP 156/66; PULSE 70; RESP 20; TEMP 36.2; O2SAT 96
[2022-12-25 08:09] LABS: Glucose, Whole Blood 96 mg/dL (60-115)
[2022-12-25 08:12] LABS: Anion Gap 16 (12-20); Blood Urea Nitrogen 60 mg/dL (9-16); Calcium 8.8 mg/dL (8.4-10.2); Carbon Dioxide 18 mmol/L (22-29); Chloride 111 mmol/L (96-108); Creatinine Clr Calc Pharmacy 9.2; Estimated Glomerular Filt Rate 9; Glucose Random 102 mg/dL (60-115); Magnesium 2.6 mg/dL (1.6-2.6); Sodium 140 mmol/L (135-145)
--- NOTE | 2022-12-25 09:32 | MHC.CM.PN ---
IMM 12/25/22, EMR REVIEWED, PT ADMITTED W/ CHF/CKD, CM MET W/PT WHO IS A&O, PT REPORTS SHE LIVES W/HER DTR/HCP BENNIE, IS INDEP W/ALL CARE, USES A CANE FOR OUTINGS ONLY AND DENIES HOME SERVICES, PT DOES REPORT IF VNA IS RECOMMENDED SHE PREFERS [facility]. PT VERIFIES PCP IS DANIEL DACOSTA, [place] X3 AND HCP DTR BENNIE ON FILE FROM PREVIOUS ADMISSION. ANTIC D/C HOME NO SERVICES W/FAMILY FOR TRANSPORT
--- NOTE | 2022-12-25 09:37 | PM.CNCAR ---
History of Present Illness History of Present Illness Date of Service: 12/25/22 Chief complaint: New Onset CHF Narrative: This is a cardiology consultation regarding congestive heart failure. Patient has history of coronary disease, coronary bypass surgery 2019, chronic kidney disease and multiple medical comorbidities presenting for shortness of breath. Over the last several days, patient has been feeling short of breath even with mild exertion. She also has some orthopnea. Hence she is admitted. Denies any clear to complaints like chest pain or anginal sounding symptoms. She is being treated for heart failure. Otherwise, patient states that she lives the daughter. Can get around without much difficulty but use a cane to walk outside. She apparently saw somebody from Cardiology at [facility] but not regularly. She cannot remember the name. Review of Systems Review of Systems: Yes all other systems are reviewed and are negative Constitutional: Constitutional: Reports as per HPI and Reports no additional constitutional complaints Eyes: Eyes: Reports as per HPI and Denies no additional eye complaints ENT: Denies system reviewed and no additional complaints, except as documented and Reports as per HPI Cardiovascular: Cardiovascular: Reports as per HPI, Reports no additional cardiovascular complaints, Denies acrocyanosis, Denies cool extremities, Denies chest pain, Denies leg edema, Denies lightheadedness, Denies palpitations and Reports dyspnea Respiratory: Respiratory: Reports as per HPI, Denies no additional respiratory complaints and Reports dyspnea Gastrointestinal: Gastrointestinal: Reports as per HPI and Denies no additional gastrointestinal complaints Genitourinary: Genitourinary: Reports as per HPI Musculoskeletal: Musculoskeletal: Reports no additional musculoskeletal complaints and Reports as per HPI Integumentary/Breasts: Skin/Breast: Reports system reviewed and no additional complaints, except as docu Neurologic: Reports system reviewed and no additional complaints, except as documented and Reports as per HPI Psychiatric: Psychiatric: Reports no additional psychiatric complaints and Reports as per HPI Endocrine: Endocrine: Reports no additional endocrine complaints, Reports as per HPI and Denies palpitations Hematologic/Lymphatic: Hematologic/Lymphatic: Reports no additional hematologic/lymphatic complaints and Reports as per HPI Allergic/Immunologic: Allergic/Immunologic: Reports no additional allergic/immunologic complaints and Reports as per HPI [facility]LY [facility] Past Medical History Medical History Cellulitis CKD (chronic kidney disease) Coronary artery disease Diabetes Hypertension PAD (peripheral artery disease) Family History Family History Father Lung cancer Stomach ulcer Sister Colon cancer, Onset Age: 80 Breast cancer Heart disease HTN (hypertension) Mother Cirrhosis of liver Family/Other Stomach ulcer Surgical History Surgical History Hx of cardiac catheterization (~05/2020) Hx of colonoscopy Hx of endoscopy Social History Social History Household Members: Family and Children Housing: House Do you presently have visiting nurse or other home services: No Alcohol intake: never Patient Tobacco Use Status: Former Tobacco user e-Cigarette/Vaping Use: Never Used Advance Directives Date on File: 09/27/21 service: No Current occupational status: retired [employer] Allergies Allergy/AdvReac Type Severity Reaction Status Date / Time No Known Allergies Allergy Verified 01/24/22 11:24 [No Known Allergies*] Active Medications: Current Medications Acetaminophen (Acetaminophen 325 Mg Tablet) 650 mg PO Q6H PRN PRN Reason: Pain, Mild (Pain Scale 1-3) Amlodipine Besylate (Amlodipine Besylate 10 Mg Tablet) 10 mg PO DAILY ERINN; Protocol Anastrozole (Anastrozole 1 Mg Tablet) 1 mg PO DAILY ERINN Ascorbic Acid (Ascorbic Acid 500 Mg Tablet) 1,000 mg PO DAILY ERINN Aspirin (Aspirin Enteric Coated 81 Mg Tablet.Dr) 81 mg PO DAILY ERINN Atorvastatin Calcium (Atorvastatin Calcium 80 Mg Tablet) 80 mg PO DAILY ERINN Cyanocobalamin (Cyanocobalamin (Vitamin B-12) 1,000 Mcg Tablet) 1,000 mcg PO DAILY ERINN Dextrose (Dextrose 50 % 25 Gm/50 Ml Syringe) 25 gm IVPUSH Q15M PRN; Protocol PRN Reason: per Hypoglycemia Standing Ord. Docusate Sodium (Docusate Sodium 100 Mg Capsule) 100 mg PO DAILY PRN PRN Reason: Constipation Furosemide (Furosemide 40 Mg/4 Ml Vial) 40 mg IVPUSH DAILY [facility]; Protocol Last Admin: 12/24/22 13:11 Dose: 40 mg Glucose (Glucose Gel 15 Gm Gel..Gram.) 15 gm PO Q15M PRN; Protocol PRN Reason: per Hypoglycemia Standing Ord. Heparin Sodium (Porcine) (Heparin Sodium,Porcine 5,000 Unit/Ml Vial) 5,000 unit SUBCUT Q12H ERINN Last Admin: 12/24/22 22:26 Dose: 5,000 unit Insulin Human Lispro (Insulin Lispro 100 Unit/Ml 3 Ml Vial) 0 unit SUBCUT QIDACHS [facility]; Protocol Last Admin: 12/25/22 08:29 Dose: Not Given Metoprolol Succinate (Metoprolol Succinate Er 50 Mg Tab.Er.24h) 50 mg PO DAILY [facility]; Protocol Omeprazole (Omeprazole 20 Mg Capsule.Dr) 20 mg PO DAILY@0630 [facility] Last Admin: 12/25/22 05:40 Dose: 20 mg Ondansetron HCl (Ondansetron Hcl 4 Mg/2 Ml Vial) 4 mg IVPUSH Q8H PRN PRN Reason: Nausea and Vomiting Pharmacy Consult (Consult Rx Perform Med Rec) 1 each MISCELLANE ONCE PRN PRN Reason: Consult order Sitagliptin Phosphate (Sitagliptin Phosphate 25 Mg Tablet) 25 mg PO DAILY [facility] Sodium Bicarbonate (Sodium Bicarbonate 650 Mg Tablet) 650 mg PO DAILY [facility] Sodium Chloride (0.9 % Sodium Chloride Flush 3 Ml Syringe) 3 ml IVFLUSH QSHIFT [facility] Last Admin: 12/24/22 22:27 Dose: 3 ml Vitamin D (Cholecalciferol (Vitamin D3) 25 Mcg Tablet) 25 mcg PO DAILY [facility] Vitamin E (Vitamin E (Dl,Tocopheryl Acet) 180 Mg (400 Unit) Capsule) 180 mg PO DAILY [facility] Home Medications Medication Instructions Recorded Confirmed Last Taken Type amlodipine 10 mg tablet 10 mg PO DAILY 09/26/21 12/24/22 Unknown History anastrozole 1 mg tablet 1 mg PO DAILY 09/26/21 12/24/22 Unknown History ascorbic acid (vitamin C) 500 mg 1,000 mg PO DAILY 09/26/21 12/24/22 Unknown History capsule pantoprazole 40 mg tablet,delayed 40 mg PO DAILY 09/26/21 12/24/22 Unknown History release sitagliptin phosphate 25 mg tablet 25 mg PO DAILY 12/08/21 12/24/22 Unknown History (Januvia) acetaminophen 325 mg capsule 650 mg PO Q6H PRN Fever Or Pain 12/24/22 12/24/22 Unknown History aspirin 81 mg tablet,delayed 81 mg PO DAILY 12/24/22 12/24/22 Unknown History release calcium carbonate 600 mg calcium 600 mg PO DAILY 12/24/22 12/24/22 Unknown History (1,500 mg) tablet cholecalciferol (vitamin D3) 25 25 mcg PO DAILY 12/24/22 12/24/22 Unknown History mcg (1,000 unit) capsule (Vitamin D3) cyanocobalamin (vitamin B-12) 1,000 mcg PO DAILY 12/24/22 12/24/22 Unknown History 1,000 mcg tablet metoprolol succinate 50 mg 50 mg PO DAILY 12/24/22 12/24/22 Unknown History tablet,extended release 24 hr sodium bicarbonate 650 mg tablet 650 mg PO DAILY 12/24/22 12/24/22 Unknown History vitamin E 400 unit tablet 400 unit PO DAILY 12/24/22 12/24/22 Unknown History Physical Exam Vital Signs: Vital Signs: Last Vital Signs Temp 97.2 F 12/25/22 07:46 Pulse 70 12/25/22 07:46 Resp 20 12/25/22 07:46 BP 156/66 H 12/25/22 07:46 Pulse Ox 96 12/25/22 07:46 O2 Del Method Nasal Cannula 12/25/22 07:46 O2 Flow Rate 6 12/25/22 07:46 Oxygen Flow Rate 6 12/24/22 08:26 BMI result Body Mass Index 28.2 Const: General: comfortable and no acute distress Orientation/consciousness: patient oriented x3 HEENT: Other: Unremarkable Head: Yes normal to inspection Neck: Neck: Yes normal visual inspection Chest: Chest palpation & inspection: normal inspection of the chest Resp: Auscultation: crackles Cardio: Palpation: normal PMI Heart sounds: S1 normal heart sound present, S2 normal heart sound present, no gallops, Murmur heart sound present systolic III/ and at the right sternal border and no rubs GI: Palpation (GI): Soft to palpation Back/Spine/Pelvis: Other: unremarkable Skin: General skin exam: no rashes or lesions noted Neuro: General: patient oriented x3 Extrem: General: Yes normal to inspection Psych: Mental Status: mental status grossly normal Objective Labs and Meds 12/25/22 07:16 12/25/22 07:16 Lab results: Laboratory Results - last 24 hr 12/24/22 12/24/22 12/24/22 09:01 10:37 12:49 WBC RBC Hgb Hct MCV MCH MCHC RDW Plt Count MPV Absolute Nucleated RBC Nucleated RBC % (auto) Sodium Potassium Chloride Carbon Dioxide Anion Gap BUN Creatinine Estim Creat Clear Calc Estimated GFR POC Glucose Random Glucose Calcium Magnesium Troponin I High Sens 40.2 H Urine Color Yellow Urine Appearance Clear Urine pH 6.0 Ur Specific [place] 1.015 Urine Protein >=1000 (4+) H Urine Glucose (UA) 250 H Urine Ketones Negative Urine Blood Negative Urine Nitrite Negative Ur Leukocyte Esterase Negative Urine RBC 0-2 Urine WBC 0-5 Ur Squamous Epith Cells 3-5 Urine Bacteria Trace Hyaline Casts 0-2 Influenza Type A (PCR) NEGATIVE Influenza Type B (PCR) NEGATIVE RSV RNA Qual (PCR) NEGATIVE SARS-CoV-2 RNA (RT-PCR) NEGATIVE 12/24/22 12/24/22 12/25/22 17:50 20:13 07:16 WBC 8.3 RBC 2.79 L Hgb 8.5 L Hct 27.1 L MCV 97.1 MCH 30.5 MCHC 31.4 RDW 15.0 Plt Count 188 MPV 9.7 Absolute Nucleated RBC 0.000 Nucleated RBC % (auto) 0.0 Sodium Potassium Chloride Carbon Dioxide Anion Gap BUN Creatinine Estim Creat Clear Calc Estimated GFR POC Glucose 93 123 H Random Glucose Calcium Magnesium Troponin I High Sens Urine Color Urine Appearance Urine pH Ur Specific [place] Urine Protein Urine Glucose (UA) Urine Ketones Urine Blood Urine Nitrite Ur Leukocyte Esterase Urine RBC Urine WBC Ur Squamous Epith Cells Urine Bacteria Hyaline Casts Influenza Type A (PCR) Influenza Type B (PCR) RSV RNA Qual (PCR) SARS-CoV-2 RNA (RT-PCR) 12/25/22 12/25/22 07:16 07:45 WBC RBC Hgb Hct MCV MCH MCHC RDW Plt Count MPV Absolute Nucleated RBC Nucleated RBC % (auto) Sodium 140 Potassium 5.0 Chloride 111 H Carbon Dioxide 18 L Anion Gap 16 BUN 60 H Creatinine 4.55 H* Estim Creat Clear Calc 9.2 Estimated GFR 9 POC Glucose 96 Random Glucose 102 Calcium 8.8 Magnesium 2.6 Troponin I High Sens Urine Color Urine Appearance Urine pH Ur Specific [place] Urine Protein Urine Glucose (UA) Urine Ketones Urine Blood Urine Nitrite Ur Leukocyte Esterase Urine RBC Urine WBC Ur Squamous Epith Cells Urine Bacteria Hyaline Casts Influenza Type A (PCR) Influenza Type B (PCR) RSV RNA Qual (PCR) SARS-CoV-2 RNA (RT-PCR) ECG Interpretation: EKG with sinus rhythm at 66/Min; nonspecific ST-T changes. Assessment and Plan (1) Acute on chronic congestive heart failure: Status: Acute (2) CKD (chronic kidney disease): Status: Acute Plan Prior documentation from [facility] reviewed. In 2019, underwent coronary bypass. Au to LAD and SVG to RPDA. In 2019, underwent left renal artery stenting. Last available echocardiogram 2019 with LVEF of 50-55%, mid to distal lateral akinesis. Mid to distal anterior hypokinesis. Moderate aortic valve calcification but no significant stenosis. Calcified mitral valve. Reduced RV systolic function. Labs show creatinine of 4.5. BUN is 60. Seems to be around her baseline. Overall, probable acute on chronic diastolic heart failure as well as chronic kidney disease contributing to her symptoms. As the renal dysfunction is advanced, need to get Nephrology on board as well. Diuretic regimen conjunction with Nephrology. Will review the echocardiogram. Time Spent With Patient Time: Total time managing care of this patient today ____ minutes. Procedures Date of Service Date of Service: 12/25/22
[2022-12-25] MEDS: amLODIPine Besylate 10 MG TABLET PO (09:39)
[2022-12-25] MEDS: Furosemide 40 MG/4 ML VIAL IVPUSH (09:39)
[2022-12-25] MEDS: Ascorbic Acid 500 MG TABLET 1000 MG PO (09:40)
[2022-12-25] MEDS: Cholecalciferol (Vitamin D3) 25 MCG TABLET PO (09:42)
[2022-12-25] MEDS: Vitamin E (Dl,Tocopheryl Acet) 180 MG (400 UNIT) CAPSULE PO (09:42)
[2022-12-25] MEDS: Cyanocobalamin (Vitamin B-12) 1,000 MCG TABLET 1000 MCG PO (09:42)
[2022-12-25] MEDS: Sodium Bicarbonate 650 MG TABLET PO (09:42)
[2022-12-25] MEDS: Atorvastatin Calcium 80 MG TABLET PO (09:42)
[2022-12-25] MEDS: 0.9 % Sodium Chloride Flush 3 ML SYRINGE IVFLUSH ×2 (09:43→20:53)
[2022-12-25] MEDS: SITagliptin Phosphate 25 MG TABLET PO (09:43)
[2022-12-25] MEDS: Aspirin Enteric Coated 81 MG TABLET.DR PO (09:48)
[2022-12-25] MEDS: Metoprolol Succinate ER 50 MG TAB.ER.24H PO (09:49)
--- NOTE | 2022-12-25 11:34 | PM.CNNEP ---
History of Present Illness Reason for Consult Consult date: 12/26/22 Reason for consult: Advanced CKD Chief Complaint Chief complaint: New Onset CHF History of Present Illness Narrative: 87-year-old female with CAD, NC and double bypass in 2019, CKD 4, HTN, hx of breast cancer, and ket-btwnxos-itnjxhslh diabetes?who presents to the ED with?worsening shortness of breath x5 days.? Patient states that she began noticing dyspnea with exertion 5 days ago.? Has recently been soap and that she becomes short of breath with minimal exertion like walking across the room.? Patient endorses orthopnea and has been sleeping with 2 pillows behind her back.? Patient also has been experiencing swelling in her ankles at night.? Notes that her shortness of breath decreases when she is sitting upright.? Patient has an extensive cardiac history with an NC and double bypass surgery in 2019, but no prior diagnosis of CHF.? Patient states she has never experienced symptoms like this before.? Says she had an echocardiogram a few years ago at [facility] but is unclear exactly how long ago that was. She is advanced CKD and usually follows with Dr. Baker in outpatient setting. She has a history of renal artery stenosis status post angioplasty and stent placement in the past. In August 2022 right kidney measure 8.4 cm left kidney measured 11.4 cm Review of Systems Review of Systems No headache. No nausea vomiting. No abdominal pain. Had shortness of breath. No cough. No dysuria urgency or hematuria. No edema. No rash. [facility] Past Medical History Medical History Cellulitis CKD (chronic kidney disease) Coronary artery disease Diabetes Hypertension PAD (peripheral artery disease) Family History Family History Father Lung cancer Stomach ulcer Sister Colon cancer, Onset Age: 80 Breast cancer Heart disease HTN (hypertension) Mother Cirrhosis of liver Family/Other Stomach ulcer Surgical History Surgical History Hx of cardiac catheterization (~05/2020) Hx of colonoscopy Hx of endoscopy Social History Social History Household Members: Family and Children Housing: House Do you presently have visiting nurse or other home services: No Alcohol intake: never Patient Tobacco Use Status: Former Tobacco user e-Cigarette/Vaping Use: Never Used Advance Directives Date on File: 09/27/21 service: No Current occupational status: retired Meds Allergies Allergy/AdvReac Type Severity Reaction Status Date / Time No Known Allergies Allergy Verified 01/24/22 11:24 [No Known Allergies*] Active Medications: Current Medications Acetaminophen (Acetaminophen 325 Mg Tablet) 650 mg PO Q6H PRN PRN Reason: Pain, Mild (Pain Scale 1-3) Amlodipine Besylate (Amlodipine Besylate 10 Mg Tablet) 10 mg PO DAILY [facility]; Protocol Last Admin: 12/25/22 09:39 Dose: 10 mg Anastrozole (Anastrozole 1 Mg Tablet) 1 mg PO DAILY [facility] Last Admin: 12/25/22 09:50 Dose: Not Given Ascorbic Acid (Ascorbic Acid 500 Mg Tablet) 1,000 mg PO DAILY [facility] Last Admin: 12/25/22 09:40 Dose: 1,000 mg Aspirin (Aspirin Enteric Coated 81 Mg Tablet.) 81 mg PO DAILY [facility] Last Admin: 12/25/22 09:48 Dose: 81 mg Atorvastatin Calcium (Atorvastatin Calcium 80 Mg Tablet) 80 mg PO DAILY [facility] Last Admin: 12/25/22 09:42 Dose: 80 mg Cyanocobalamin (Cyanocobalamin (Vitamin B-12) 1,000 Mcg Tablet) 1,000 mcg PO DAILY [facility] Last Admin: 12/25/22 09:42 Dose: 1,000 mcg Dextrose (Dextrose 50 % 25 Gm/50 Ml Syringe) 25 gm IVPUSH Q15M PRN; Protocol PRN Reason: per Hypoglycemia Standing Ord. Docusate Sodium (Docusate Sodium 100 Mg Capsule) 100 mg PO DAILY PRN PRN Reason: Constipation Furosemide (Furosemide 40 Mg/4 Ml Vial) 40 mg IVPUSH DAILY [facility]; Protocol Last Admin: 12/25/22 09:39 Dose: 40 mg Glucose (Glucose Gel 15 Gm Gel..Gram.) 15 gm PO Q15M PRN; Protocol PRN Reason: per Hypoglycemia Standing Ord. Heparin Sodium (Porcine) (Heparin Sodium,Porcine 5,000 Unit/Ml Vial) 5,000 unit SUBCUT Q12H [facility] Last Admin: 12/24/22 22:26 Dose: 5,000 unit Insulin Human Lispro (Insulin Lispro 100 Unit/Ml 3 Ml Vial) 0 unit SUBCUT QIDACHS [facility]; Protocol Last Admin: 12/25/22 08:29 Dose: Not Given Metoprolol Succinate (Metoprolol Succinate Er 50 Mg Tab.Er.24h) 50 mg PO DAILY [facility]; Protocol Last Admin: 12/25/22 09:49 Dose: 50 mg Omeprazole (Omeprazole 20 Mg Capsule.Dr) 20 mg PO DAILY@0630 [facility] Last Admin: 12/25/22 05:40 Dose: 20 mg Ondansetron HCl (Ondansetron Hcl 4 Mg/2 Ml Vial) 4 mg IVPUSH Q8H PRN PRN Reason: Nausea and Vomiting Pharmacy Consult (Consult Rx Perform Med Rec) 1 each MISCELLANE ONCE PRN PRN Reason: Consult order Sitagliptin Phosphate (Sitagliptin Phosphate 25 Mg Tablet) 25 mg PO DAILY [facility] Last Admin: 12/25/22 09:43 Dose: 25 mg Sodium Bicarbonate (Sodium Bicarbonate 650 Mg Tablet) 650 mg PO DAILY [facility] Last Admin: 12/25/22 09:42 Dose: 650 mg Sodium Chloride (0.9 % Sodium Chloride Flush 3 Ml Syringe) 3 ml IVFLUSH QSHIFT [facility] Last Admin: 12/25/22 09:43 Dose: 3 ml Vitamin D (Cholecalciferol (Vitamin D3) 25 Mcg Tablet) 25 mcg PO DAILY [facility] Last Admin: 12/25/22 09:42 Dose: 25 mcg Vitamin E (Vitamin E (Dl,Tocopheryl Acet) 180 Mg (400 Unit) Capsule) 180 mg PO DAILY [facility] Last Admin: 12/25/22 09:42 Dose: 180 mg Home Medications Medication Instructions Recorded Confirmed Last Taken Type amlodipine 10 mg tablet 10 mg PO DAILY 09/26/21 12/24/22 Unknown History anastrozole 1 mg tablet 1 mg PO DAILY 09/26/21 12/24/22 Unknown History ascorbic acid (vitamin C) 500 mg 1,000 mg PO DAILY 09/26/21 12/24/22 Unknown History capsule pantoprazole 40 mg tablet,delayed 40 mg PO DAILY 09/26/21 12/24/22 Unknown History release sitagliptin phosphate 25 mg tablet 25 mg PO DAILY 12/08/21 12/24/22 Unknown History ([place]) acetaminophen 325 mg capsule 650 mg PO Q6H PRN Fever Or Pain 12/24/22 12/24/22 Unknown History aspirin 81 mg tablet,delayed 81 mg PO DAILY 12/24/22 12/24/22 Unknown History release calcium carbonate 600 mg calcium 600 mg PO DAILY 12/24/22 12/24/22 Unknown History (1,500 mg) tablet cholecalciferol (vitamin D3) 25 25 mcg PO DAILY 12/24/22 12/24/22 Unknown History mcg (1,000 unit) capsule (Vitamin D3) cyanocobalamin (vitamin B-12) 1,000 mcg PO DAILY 12/24/22 12/24/22 Unknown History 1,000 mcg tablet metoprolol succinate 50 mg 50 mg PO DAILY 12/24/22 12/24/22 Unknown History tablet,extended release 24 hr sodium bicarbonate 650 mg tablet 650 mg PO DAILY 12/24/22 12/24/22 Unknown History vitamin E 400 unit tablet 400 unit PO DAILY 12/24/22 12/24/22 Unknown History Physical Exam Vital Signs: Last Vital Signs Temp 97.2 F 12/25/22 07:46 Pulse 70 12/25/22 07:46 Resp 20 12/25/22 07:46 BP 156/66 H 12/25/22 07:46 Pulse Ox 96 12/25/22 07:46 O2 Del Method Nasal Cannula 12/25/22 07:46 O2 Flow Rate 6 12/25/22 07:46 Oxygen Flow Rate 6 12/24/22 08:26 BMI result Body Mass Index 28.2 Comfortable Neck is supple Lung: Air entry equal with bilateral basal crackles Heart: S1,S2, normal. No rub Abd: Soft. BS + NS : Alert.No asterexis Ext: No edema Results Lab Results 12/25/22 07:16 12/25/22 07:16 Lab results: Chemistry 12/24/22 12/25/22 09:01 07:16 Sodium 139 140 Potassium 4.9 5.0 Carbon Dioxide 19 L 18 L BUN 53 H 60 H Creatinine 4.43 H* 4.55 H* Calcium 9.0 8.8 Hematology 12/24/22 12/25/22 09:01 07:16 WBC 7.5 8.3 Hgb 8.9 L 8.5 L Plt Count 210 188 Urinalysis 12/24/22 10:37 Urine Color Yellow Urine Appearance Clear Urine pH 6.0 Ur Specific [place] 1.015 Urine Protein >=1000 (4+) H Urine Glucose (UA) 250 H Urine Ketones Negative Urine Blood Negative Urine Nitrite Negative Ur Leukocyte Esterase Negative Urine RBC 0-2 Urine WBC 0-5 Ur Squamous Epith Cells 3-5 Hyaline Casts 0-2 Assessment and Plan (1) CKD (chronic kidney disease): Status: Acute (2) Acute on chronic congestive heart failure: Status: Acute Plan Elderly woman with advanced CKD admitted with shortness of breath due to fluid overload. Paulette has history of renal artery stenosis. She is undergone angioplasty with stent placement. At present renal function is close to baseline. She has no overt signs or symptoms of uremia. Recommendation would be to keep her on low-sodium diet. Agree with IV Lasix. Keep output more than intake. Continue to avoid nephrotoxic agents. Await echocardiogram. No absolute indication for dialysis today. We will reassess in the next 24-48 hours. Anemia due to underlying CKD. Check iron TIBC ferritin. We need Epogen. Mild hyperchloremic metabolic acidosis due to advanced CKD. If CO2 drops below 18 I would add sodium bicarbonate tablets. Time Spent With Patient Time: Total time managing care of this patient today ____ minutes. Procedures Date of Service Date of Service: 12/26/22
[2022-12-25 11:50] LABS: Glucose, Whole Blood 128 mg/dL (60-115)
[2022-12-25 12:00] VITALS: BP 134/63; PULSE 64; RESP 20; TEMP 36.4; O2SAT 96
--- NOTE | 2022-12-25 13:27 | P.PNIM_ITS ---
Subjective Subjective Date of Service: 12/25/22 Interval History: complaining of persistent shortness of breath, leg edema has improved, denies chest pain, no palpitations no lightheadedness, no dizziness no other acute events overnight, vitals stable. Review of Systems [employer] no headache no dizziness general no fevers, no chills GI no nausea, no vomiting no urgency, no frequency. Physical Exam Vital Signs: Vital Signs: Last Vital Signs Temp 97.6 F 12/25/22 12:00 Pulse 64 12/25/22 12:00 Resp 20 12/25/22 12:00 BP 134/63 12/25/22 12:00 Pulse Ox 96 12/25/22 12:00 O2 Del Method Nasal Cannula 12/25/22 12:00 O2 Flow Rate 6 12/25/22 12:00 Oxygen Flow Rate 6 12/24/22 08:26 BMI result Body Mass Index 28.2 Const: Other: General awake alert x3, in no acute distress. Neck no JVD. CVS regular rate rhythm, Respiratory lungs bibasilar crackles,no respiratory distress, no wheeze, no rhonchi. Gastrointestinal abdomen soft, non tender, bowel sounds audible, no guarding , no rigidity. Extremities mild left lower extremity edema Neuro nonfocal, speech clear. Skin no rash psych appropriate affect Objective Data Active Medications Acetaminophen (Acetaminophen 325 Mg Tablet) 650 mg PO Q6H PRN PRN Reason: Pain, Mild (Pain Scale 1-3) Amlodipine Besylate (Amlodipine Besylate 10 Mg Tablet) 10 mg PO DAILY [facility]; Protocol Last Admin: 12/25/22 09:39 Dose: 10 mg Documented By: ARNOL Anastrozole (Anastrozole 1 Mg Tablet) 1 mg PO DAILY [facility] Last Admin: 12/25/22 09:50 Dose: Not Given Documented By: ARNOL Non-Admin Reason: Patient Refused Ascorbic Acid (Ascorbic Acid 500 Mg Tablet) 1,000 mg PO DAILY [facility] Last Admin: 12/25/22 09:40 Dose: 1,000 mg Documented By: ARNOL Aspirin (Aspirin Enteric Coated 81 Mg Tablet.) 81 mg PO DAILY [facility] Last Admin: 12/25/22 09:48 Dose: 81 mg Documented By: ARNOL Atorvastatin Calcium (Atorvastatin Calcium 80 Mg Tablet) 80 mg PO DAILY [facility] Last Admin: 12/25/22 09:42 Dose: 80 mg Documented By: ARNOL Cyanocobalamin (Cyanocobalamin (Vitamin B-12) 1,000 Mcg Tablet) 1,000 mcg PO DAILY [facility] Last Admin: 12/25/22 09:42 Dose: 1,000 mcg Documented By: ARNOL Dextrose (Dextrose 50 % 25 Gm/50 Ml Syringe) 25 gm IVPUSH Q15M PRN; Protocol PRN Reason: per Hypoglycemia Standing Ord. Docusate Sodium (Docusate Sodium 100 Mg Capsule) 100 mg PO DAILY PRN PRN Reason: Constipation Furosemide (Furosemide 40 Mg/4 Ml Vial) 40 mg IVPUSH DAILY [facility]; Protocol Last Admin: 12/25/22 09:39 Dose: 40 mg Documented By: ARNOL Glucose (Glucose Gel 15 Gm Gel..Gram.) 15 gm PO Q15M PRN; Protocol PRN Reason: per Hypoglycemia Standing Ord. Heparin Sodium (Porcine) (Heparin Sodium,Porcine 5,000 Unit/Ml Vial) 5,000 unit SUBCUT Q12H [facility] Last Admin: 12/24/22 22:26 Dose: 5,000 unit Documented By: ART Insulin Human Lispro (Insulin Lispro 100 Unit/Ml 3 Ml Vial) 0 unit SUBCUT QIDACHS [facility]; Protocol Last Admin: 12/25/22 08:29 Dose: Not Given Documented By: ARNOL Non-Admin Reason: No Insulin Coverage Metoprolol Succinate (Metoprolol Succinate Er 50 Mg Tab.Er.24h) 50 mg PO DAILY [facility]; Protocol Last Admin: 12/25/22 09:49 Dose: 50 mg Documented By: ARNOL Omeprazole (Omeprazole 20 Mg Capsule.Dr) 20 mg PO DAILY@0630 [facility] Last Admin: 12/25/22 05:40 Dose: 20 mg Documented By: ART Ondansetron HCl (Ondansetron Hcl 4 Mg/2 Ml Vial) 4 mg IVPUSH Q8H PRN PRN Reason: Nausea and Vomiting Pharmacy Consult (Consult Rx Perform Med Rec) 1 each MISCELLANE ONCE PRN PRN Reason: Consult order Sitagliptin Phosphate (Sitagliptin Phosphate 25 Mg Tablet) 25 mg PO DAILY [facility] Last Admin: 12/25/22 09:43 Dose: 25 mg Documented By: ARNOL Sodium Bicarbonate (Sodium Bicarbonate 650 Mg Tablet) 650 mg PO DAILY [facility] Last Admin: 12/25/22 09:42 Dose: 650 mg Documented By: ARNOL Sodium Chloride (0.9 % Sodium Chloride Flush 3 Ml Syringe) 3 ml IVFLUSH QSHIFT [facility] Last Admin: 12/25/22 09:43 Dose: 3 ml Documented By: ARNOL Vitamin D (Cholecalciferol (Vitamin D3) 25 Mcg Tablet) 25 mcg PO DAILY [facility] Last Admin: 12/25/22 09:42 Dose: 25 mcg Documented By: ARNOL Vitamin E (Vitamin E (Dl,Tocopheryl Acet) 180 Mg (400 Unit) Capsule) 180 mg PO DAILY [facility] Last Admin: 12/25/22 09:42 Dose: 180 mg Documented By: ARNOL Labs 12/25/22 07:16 12/25/22 07:16 Labs: Laboratory Results - last 24 hr 12/24/22 12/24/22 12/24/22 12:49 17:50 20:13 MCV MCH MCHC RDW Plt Count MPV Absolute Nucleated RBC Nucleated RBC % (auto) Anion Gap Estim Creat Clear Calc Estimated GFR POC Glucose 93 123 H Random Glucose Calcium Magnesium Troponin I High Sens 40.2 H 12/25/22 12/25/22 12/25/22 07:16 07:16 07:45 MCV 97.1 MCH 30.5 MCHC 31.4 RDW 15.0 Plt Count 188 MPV 9.7 Absolute Nucleated RBC 0.000 Nucleated RBC % (auto) 0.0 Anion Gap 16 Estim Creat Clear Calc 9.2 Estimated GFR 9 POC Glucose 96 Random Glucose 102 Calcium 8.8 Magnesium 2.6 Troponin I High Sens 12/25/22 11:45 MCV MCH MCHC RDW Plt Count MPV Absolute Nucleated RBC Nucleated RBC % (auto) Anion Gap Estim Creat Clear Calc Estimated GFR POC Glucose 128 H Random Glucose Calcium Magnesium Troponin I High Sens Microbiology Microbiology Results: Microbiology 12/24/22 09:01 Blood Culture - Preliminary Blood - Venous No growth after 24 hours. 12/24/22 09:01 Blood Culture - Preliminary Blood - Venous No growth after 24 hours. Assessment and Plan (1) CKD (chronic kidney disease): Status: Acute (2) CHF (congestive heart failure): Status: Acute Plan 87-year-old female with a PMH significant for CAD, [place] and double bypass in 2019, CKD 4, HTN, hx of breast cancer, and txi-cnnpuol-syrznljic diabetes?who presents to the ED with?worsening shortness of breath x5 days. Pt will be admitted to the hospital for treatment and further evaluation of new onset CHF with IV diuretics. New onset CHF persistent shortness of breath, no chest pain, elevated BNP, CXR showing fluid overload will continue Furosemide 40 mg IV qd Follow lytes, I/O, Daily weights, low-salt diet follow Echocardiogram seen by Cardiology they agreed with above treatment plan and will review echo report. CKD stage 4 with metabolic acidosis creatinine 4.55, around baseline een by Nephrology no indication for hemodialysis with no sign and symptoms of uremia, follow BMP while being diuresed. Elevated troponin troponin elevated but flat, no chest pain, EKG with no acute ST changes will follow echocardiogram elevated troponin likely due to chronic kidney disease and CHF Anemia of chronic disease Patient's H&H 8.9/29.1, near baseline, will check iron studies, Epogen as per Nephrology Iot-fntsizl-tnexmrcmr diabetes Continue Januvia, SSI Diabetic diet CAD Continue aspirin, statin HTN Continue amlodipine Hx of breast cancer Continue anastrozole GERD Continue pantoprazole Full Code DVT Prophylaxis: Heparin Pt will require a hospitalization for treatment with IV diuretics of?new onset CHF and close monitoring of renal function while being diuresed. Time Spent With Patient Time: Total time managing care of this patient today ____ minutes. Quality Stroke Does the patient have a stroke diagnosis?: No VTE Prior VTE?: No VTE Risk Level:: Medical - moderate - high VTE Device Contraindication: Treatment Not Indicated VTE Drug Contraindication: N/A - Med Ordered
[2022-12-25 15:19] VITALS: BP 155/70; PULSE 72; RESP 20; TEMP 36.4; O2SAT 94
[2022-12-25 15:52] LABS: Glucose, Whole Blood 110 mg/dL (60-115)
[2022-12-25] MEDS: Heparin Sodium,Porcine 5,000 UNIT/ML VIAL 5000 UNIT SUBCUT (16:15)
[2022-12-25 20:00] VITALS: BP 125/61; PULSE 69; TEMP 36.4; O2SAT 95
[2022-12-25 20:20] LABS: Glucose, Whole Blood 111 mg/dL (60-115)
[2022-12-25 23:44] VITALS: BP 125/68; PULSE 70; RESP 18; TEMP 36.8; O2SAT 99
[2022-12-26] MEDS: Heparin Sodium,Porcine 5,000 UNIT/ML VIAL 5000 UNIT SUBCUT ×2 (00:24→13:47)
[2022-12-26 04:00] VITALS: BP 116/65; PULSE 63; RESP 20; TEMP 37; O2SAT 97
[2022-12-26] MEDS: Omeprazole 20 MG CAPSULE.DR PO (05:47)
[2022-12-26 07:12] VITALS: BP 133/65; PULSE 69; RESP 20; TEMP 36.3; O2SAT 99
[2022-12-26 07:27] LABS: Glucose, Whole Blood 92 mg/dL (60-115)
[2022-12-26 09:57] LABS: Anion Gap 14 (12-20); Blood Urea Nitrogen 61 mg/dL (9-16); Calcium 8.3 mg/dL (8.4-10.2); Carbon Dioxide 20 mmol/L (22-29); Chloride 110 mmol/L (96-108); Creatinine Clr Calc Pharmacy 9.5; Estimated Glomerular Filt Rate 9; Glucose Random 128 mg/dL (60-115); Iron 41 mcg/dL (30-160); Percent Iron Saturation 17 % (15-50); Potassium 4.5 mmol/L (3.3-5.1); Sodium 139 mmol/L (135-145); Total Iron Binding Capacity 248 mcg/dL (228-428); Unsaturated Iron Binding 207 ug/dL
--- NOTE | 2022-12-26 10:01 | PM.PNNEP ---
Subjective Subjective Date of Service: 12/27/22 Interval history: Events noted. Cardiorenal appreciated. Diuresing well. Feels little better. Physical Exam Vital Signs: Vital Signs: Last Vital Signs Temp 97.3 F 12/26/22 07:12 Pulse 69 12/26/22 07:12 Resp 20 12/26/22 07:12 BP 133/65 12/26/22 07:12 Pulse Ox 99 12/26/22 07:12 O2 Del Method Nasal Cannula 12/26/22 07:12 O2 Flow Rate 6 12/26/22 07:12 Oxygen Flow Rate 6 12/24/22 08:26 BMI result Body Mass Index 28.2 Const: Other: General awake alert x3, in no acute distress. Neck no JVD. CVS regular rate rhythm, Respiratory lungs bibasilar crackles,no respiratory distress, no wheeze, no rhonchi. Gastrointestinal abdomen soft, non tender, bowel sounds audible, no guarding , no rigidity. Extremities mild left lower extremity edema Neuro nonfocal, speech clear. Skin no rash psych appropriate affect Objective Data Labs 12/25/22 07:16 12/26/22 08:42 Labs: Laboratory Results - last 24 hr 12/25/22 12/25/22 12/25/22 11:45 15:46 20:12 Sodium Potassium Chloride Carbon Dioxide Anion Gap BUN Creatinine Estim Creat Clear Calc Estimated GFR POC Glucose 128 H 110 111 Random Glucose Calcium Iron TIBC % Saturation Unsat Iron Binding 12/26/22 12/26/22 07:10 08:42 Sodium 139 Potassium 4.5 Chloride 110 H Carbon Dioxide 20 L Anion Gap 14 BUN 61 H Creatinine 4.40 H* Estim Creat Clear Calc 9.5 Estimated GFR 9 POC Glucose 92 Random Glucose 128 H Calcium 8.3 L Iron 41 TIBC 248 % Saturation 17 Unsat Iron Binding 207 Microbiology Microbiology Results: Microbiology 12/24/22 09:01 Blood - Venous Blood Culture - Preliminary No growth after 24 hours. 12/24/22 09:01 Blood - Venous Blood Culture - Preliminary No growth after 24 hours. Procedures Date of Service Date of Service: 12/27/22 Assessment & Plan Assessment and plan (1) CKD (chronic kidney disease): Status: Acute (2) Acute on chronic congestive heart failure: Status: Acute Plan Elderly woman with advanced CKD admitted with shortness of breath due to fluid overload. Paulette has history of renal artery stenosis. She is undergone angioplasty with stent placement. At present renal function is close to baseline. She has no overt signs or symptoms of uremia. Recommendation keep her on low-sodium diet. Agree with IV Lasix. Keep output more than intake. Continue to avoid nephrotoxic agents. Await echocardiogram report Appreciate cardiology input No absolute indication for dialysis today. We will reassess in the next 24-48 hours. Anemia due to underlying CKD. Iron stores adequate. I will start her on Epogen and optimize hemoglobin. Mild hyperchloremic metabolic acidosis due to advanced CKD. If CO2 drops below 18 I would add sodium bicarbonate tablets. Time Spent With Patient Time: Total time managing care of this patient today ____ minutes. Progress Note: Quality Stroke Does the patient have a stroke diagnosis?: No
[2022-12-26 10:13] LABS: Ferritin 60 ng/mL (10-250)
[2022-12-26] MEDS: Sodium Bicarbonate 650 MG TABLET PO (10:36)
[2022-12-26] MEDS: Anastrozole 1 MG TABLET PO (10:36)
[2022-12-26] MEDS: Ascorbic Acid 500 MG TABLET 1000 MG PO (10:36)
[2022-12-26] MEDS: 0.9 % Sodium Chloride Flush 3 ML SYRINGE IVFLUSH (10:36)
[2022-12-26] MEDS: Atorvastatin Calcium 80 MG TABLET PO (10:37)
[2022-12-26] MEDS: Furosemide 40 MG/4 ML VIAL IVPUSH (10:37)
[2022-12-26] MEDS: Aspirin Enteric Coated 81 MG TABLET.DR PO (10:37)
[2022-12-26] MEDS: SITagliptin Phosphate 25 MG TABLET PO (10:37)
[2022-12-26] MEDS: Vitamin E (Dl,Tocopheryl Acet) 180 MG (400 UNIT) CAPSULE PO (10:37)
[2022-12-26] MEDS: Cholecalciferol (Vitamin D3) 25 MCG TABLET PO (10:37)
[2022-12-26] MEDS: amLODIPine Besylate 10 MG TABLET PO (10:37)
[2022-12-26] MEDS: Metoprolol Succinate ER 50 MG TAB.ER.24H PO (10:37)
[2022-12-26] MEDS: Cyanocobalamin (Vitamin B-12) 1,000 MCG TABLET 1000 MCG PO (10:37)
--- NOTE | 2022-12-26 10:56 | PM.CNCAR ---
History of Present Illness History of Present Illness Date of Service: 12/26/22 Requesting physician: Elise Sanders Chief complaint: New Onset CHF [facility] Past Medical History Medical History Cellulitis CKD (chronic kidney disease) Coronary artery disease Diabetes Hypertension PAD (peripheral artery disease) Family History Family History Father Lung cancer Stomach ulcer Sister Colon cancer, Onset Age: 80 Breast cancer Heart disease HTN (hypertension) Mother Cirrhosis of liver Family/Other Stomach ulcer Surgical History Surgical History Hx of cardiac catheterization (~05/2020) Hx of colonoscopy Hx of endoscopy Social History Social History Household Members: Family and Children Housing: House Do you presently have visiting nurse or other home services: No Alcohol intake: never Patient Tobacco Use Status: Former Tobacco user e-Cigarette/Vaping Use: Never Used Advance Directives Date on File: 09/27/21 service: No Current occupational status: retired [employer] Allergies Allergy/AdvReac Type Severity Reaction Status Date / Time No Known Allergies Allergy Verified 01/24/22 11:24 [No Known Allergies*] Active Medications: Current Medications Acetaminophen (Acetaminophen 325 Mg Tablet) 650 mg PO Q6H PRN PRN Reason: Pain, Mild (Pain Scale 1-3) Amlodipine Besylate (Amlodipine Besylate 10 Mg Tablet) 10 mg PO DAILY [facility]; Protocol Last Admin: 12/26/22 10:37 Dose: 10 mg Anastrozole (Anastrozole 1 Mg Tablet) 1 mg PO DAILY [facility] Last Admin: 12/26/22 10:36 Dose: 1 mg Ascorbic Acid (Ascorbic Acid 500 Mg Tablet) 1,000 mg PO DAILY [facility] Last Admin: 12/26/22 10:36 Dose: 1,000 mg Aspirin (Aspirin Enteric Coated 81 Mg Tablet.) 81 mg PO DAILY [facility] Last Admin: 12/26/22 10:37 Dose: 81 mg Atorvastatin Calcium (Atorvastatin Calcium 80 Mg Tablet) 80 mg PO DAILY [facility] Last Admin: 12/26/22 10:37 Dose: 80 mg Cyanocobalamin (Cyanocobalamin (Vitamin B-12) 1,000 Mcg Tablet) 1,000 mcg PO DAILY [facility] Last Admin: 12/26/22 10:37 Dose: 1,000 mcg Dextrose (Dextrose 50 % 25 Gm/50 Ml Syringe) 25 gm IVPUSH Q15M PRN; Protocol PRN Reason: per Hypoglycemia Standing Ord. Docusate Sodium (Docusate Sodium 100 Mg Capsule) 100 mg PO DAILY PRN PRN Reason: Constipation Furosemide (Furosemide 40 Mg/4 Ml Vial) 40 mg IVPUSH DAILY [facility]; Protocol Last Admin: 12/26/22 10:37 Dose: 40 mg Glucose (Glucose Gel 15 Gm Gel..Gram.) 15 gm PO Q15M PRN; Protocol PRN Reason: per Hypoglycemia Standing Ord. Heparin Sodium (Porcine) (Heparin Sodium,Porcine 5,000 Unit/Ml Vial) 5,000 unit SUBCUT Q12H [facility] Last Admin: 12/26/22 00:24 Dose: 5,000 unit Insulin Human Lispro (Insulin Lispro 100 Unit/Ml 3 Ml Vial) 0 unit SUBCUT QIDACHS [facility]; Protocol Last Admin: 12/26/22 07:32 Dose: Not Given Metoprolol Succinate (Metoprolol Succinate Er 50 Mg Tab.Er.24h) 50 mg PO DAILY [facility]; Protocol Last Admin: 12/26/22 10:37 Dose: 50 mg Omeprazole (Omeprazole 20 Mg Capsule.Dr) 20 mg PO DAILY@0630 [facility] Last Admin: 12/26/22 05:47 Dose: 20 mg Ondansetron HCl (Ondansetron Hcl 4 Mg/2 Ml Vial) 4 mg IVPUSH Q8H PRN PRN Reason: Nausea and Vomiting Pharmacy Consult (Consult Rx Perform Med Rec) 1 each MISCELLANE ONCE PRN PRN Reason: Consult order Sitagliptin Phosphate (Sitagliptin Phosphate 25 Mg Tablet) 25 mg PO DAILY [facility] Last Admin: 12/26/22 10:37 Dose: 25 mg Sodium Bicarbonate (Sodium Bicarbonate 650 Mg Tablet) 650 mg PO DAILY [facility] Last Admin: 12/26/22 10:36 Dose: 650 mg Sodium Chloride (0.9 % Sodium Chloride Flush 3 Ml Syringe) 3 ml IVFLUSH QSHIFT [facility] Last Admin: 12/26/22 10:36 Dose: 3 ml Vitamin D (Cholecalciferol (Vitamin D3) 25 Mcg Tablet) 25 mcg PO DAILY [facility] Last Admin: 12/26/22 10:37 Dose: 25 mcg Vitamin E (Vitamin E (Dl,Tocopheryl Acet) 180 Mg (400 Unit) Capsule) 180 mg PO DAILY [facility] Last Admin: 12/26/22 10:37 Dose: 180 mg Home Medications Medication Instructions Recorded Confirmed Last Taken Type amlodipine 10 mg tablet 10 mg PO DAILY 09/26/21 12/24/22 Unknown History anastrozole 1 mg tablet 1 mg PO DAILY 09/26/21 12/24/22 Unknown History ascorbic acid (vitamin C) 500 mg 1,000 mg PO DAILY 09/26/21 12/24/22 Unknown History capsule pantoprazole 40 mg tablet,delayed 40 mg PO DAILY 09/26/21 12/24/22 Unknown History release sitagliptin phosphate 25 mg tablet 25 mg PO DAILY 12/08/21 12/24/22 Unknown History (Myriam) acetaminophen 325 mg capsule 650 mg PO Q6H PRN Fever Or Pain 12/24/22 12/24/22 Unknown History aspirin 81 mg tablet,delayed 81 mg PO DAILY 12/24/22 12/24/22 Unknown History release calcium carbonate 600 mg calcium 600 mg PO DAILY 12/24/22 12/24/22 Unknown History (1,500 mg) tablet cholecalciferol (vitamin D3) 25 25 mcg PO DAILY 12/24/22 12/24/22 Unknown History mcg (1,000 unit) capsule (Vitamin D3) cyanocobalamin (vitamin B-12) 1,000 mcg PO DAILY 12/24/22 12/24/22 Unknown History 1,000 mcg tablet metoprolol succinate 50 mg 50 mg PO DAILY 12/24/22 12/24/22 Unknown History tablet,extended release 24 hr sodium bicarbonate 650 mg tablet 650 mg PO DAILY 12/24/22 12/24/22 Unknown History vitamin E 400 unit tablet 400 unit PO DAILY 12/24/22 12/24/22 Unknown History Physical Exam Vital Signs: Vital Signs: Last Vital Signs Temp 97.3 F 12/26/22 07:12 Pulse 69 12/26/22 07:12 Resp 20 12/26/22 07:12 BP 133/65 12/26/22 07:12 Pulse Ox 99 12/26/22 07:12 O2 Del Method Nasal Cannula 12/26/22 07:12 O2 Flow Rate 6 12/26/22 07:12 Oxygen Flow Rate 6 12/24/22 08:26 BMI result Body Mass Index 28.2 Objective Labs and Meds 12/25/22 07:16 12/26/22 08:42 Lab results: Laboratory Results - last 24 hr 12/25/22 12/25/22 12/25/22 11:45 15:46 20:12 Sodium Potassium Chloride Carbon Dioxide Anion Gap BUN Creatinine Estim Creat Clear Calc Estimated GFR POC Glucose 128 H 110 111 Random Glucose Calcium Iron TIBC % Saturation Unsat Iron Binding Ferritin 12/26/22 12/26/22 07:10 08:42 Sodium 139 Potassium 4.5 Chloride 110 H Carbon Dioxide 20 L Anion Gap 14 BUN 61 H Creatinine 4.40 H* Estim Creat Clear Calc 9.5 Estimated GFR 9 POC Glucose 92 Random Glucose 128 H Calcium 8.3 L Iron 41 TIBC 248 % Saturation 17 Unsat Iron Binding 207 Ferritin 60 Assessment and Plan Time Spent With Patient Time: Total time managing care of this patient today ____ minutes. Procedures Date of Service Date of Service: 12/26/22
[2022-12-26 11:12] LABS: Glucose, Whole Blood 86 mg/dL (60-115)
[2022-12-26 11:22] VITALS: BP 136/64; PULSE 75; RESP 20; TEMP 36.6; O2SAT 96
--- NOTE | 2022-12-26 11:57 | HO.PM.IMPN ---
Subjective Subjective Date of Service: 12/26/22 Interval History: complaining of persistent shortness of breath, no chest pain, no palpitation, no lightheadedness, no dizziness, no fevers no chills no cough or sputum production, no nausea, no vomiting, tolerating diet. complaining of persistent small swelling right lower abdomen. Review of Systems all other system reviewed and negative. Physical Exam Vital Signs: Vital Signs: Last Vital Signs Temp 97.8 F 12/26/22 11:22 Pulse 75 12/26/22 11:22 Resp 20 12/26/22 11:22 BP 136/64 12/26/22 11:22 Pulse Ox 96 12/26/22 11:22 O2 Del Method Nasal Cannula 12/26/22 11:22 O2 Flow Rate 3 12/26/22 11:22 Oxygen Flow Rate 6 12/24/22 08:26 BMI result Body Mass Index 28.2 Const: Other: General? awake alert x3, in no acute distress.? Neck + JVD. CVS? regular rate rhythm, Respiratory lungs? clear , no rales, no respiratory distress, no wheeze, no rhonchi. Gastrointestinal abdomen soft, non tender, bowel sounds audible, no guarding , no rigidity. Extremities?no edema Neuro nonfocal, speech clear. Skin no rash psych appropriate affect Objective Data Active Medications Acetaminophen (Acetaminophen 325 Mg Tablet) 650 mg PO Q6H PRN PRN Reason: Pain, Mild (Pain Scale 1-3) Amlodipine Besylate (Amlodipine Besylate 10 Mg Tablet) 10 mg PO DAILY [facility]; Protocol Last Admin: 12/26/22 10:37 Dose: 10 mg Documented By: ARNOL Anastrozole (Anastrozole 1 Mg Tablet) 1 mg PO DAILY [facility] Last Admin: 12/26/22 10:36 Dose: 1 mg Documented By: ARNOL Ascorbic Acid (Ascorbic Acid 500 Mg Tablet) 1,000 mg PO DAILY [facility] Last Admin: 12/26/22 10:36 Dose: 1,000 mg Documented By: ARNOL Aspirin (Aspirin Enteric Coated 81 Mg Tablet.) 81 mg PO DAILY [facility] Last Admin: 12/26/22 10:37 Dose: 81 mg Documented By: ARNOL Atorvastatin Calcium (Atorvastatin Calcium 80 Mg Tablet) 80 mg PO DAILY [facility] Last Admin: 12/26/22 10:37 Dose: 80 mg Documented By: ARNOL Cyanocobalamin (Cyanocobalamin (Vitamin B-12) 1,000 Mcg Tablet) 1,000 mcg PO DAILY [facility] Last Admin: 12/26/22 10:37 Dose: 1,000 mcg Documented By: ARNOL Dextrose (Dextrose 50 % 25 Gm/50 Ml Syringe) 25 gm IVPUSH Q15M PRN; Protocol PRN Reason: per Hypoglycemia Standing Ord. Docusate Sodium (Docusate Sodium 100 Mg Capsule) 100 mg PO DAILY PRN PRN Reason: Constipation Furosemide (Furosemide 40 Mg/4 Ml Vial) 40 mg IVPUSH DAILY [facility]; Protocol Last Admin: 12/26/22 10:37 Dose: 40 mg Documented By: ARNOL Glucose (Glucose Gel 15 Gm Gel..Gram.) 15 gm PO Q15M PRN; Protocol PRN Reason: per Hypoglycemia Standing Ord. Heparin Sodium (Porcine) (Heparin Sodium,Porcine 5,000 Unit/Ml Vial) 5,000 unit SUBCUT Q12H [facility] Last Admin: 12/26/22 00:24 Dose: 5,000 unit Documented By: KELIN Insulin Human Lispro (Insulin Lispro 100 Unit/Ml 3 Ml Vial) 0 unit SUBCUT QIDACHS [facility]; Protocol Last Admin: 12/26/22 07:32 Dose: Not Given Documented By: ARNOL Non-Admin Reason: No Insulin Coverage Metoprolol Succinate (Metoprolol Succinate Er 50 Mg Tab.Er.24h) 50 mg PO DAILY [facility]; Protocol Last Admin: 12/26/22 10:37 Dose: 50 mg Documented By: ARNOL Omeprazole (Omeprazole 20 Mg Capsule.) 20 mg PO DAILY@0630 [facility] Last Admin: 12/26/22 05:47 Dose: 20 mg Documented By: KELIN Ondansetron HCl (Ondansetron Hcl 4 Mg/2 Ml Vial) 4 mg IVPUSH Q8H PRN PRN Reason: Nausea and Vomiting Pharmacy Consult (Consult Rx Perform Med Rec) 1 each MISCELLANE ONCE PRN PRN Reason: Consult order Sitagliptin Phosphate (Sitagliptin Phosphate 25 Mg Tablet) 25 mg PO DAILY [facility] Last Admin: 12/26/22 10:37 Dose: 25 mg Documented By: ARNOL Sodium Bicarbonate (Sodium Bicarbonate 650 Mg Tablet) 650 mg PO DAILY [facility] Last Admin: 12/26/22 10:36 Dose: 650 mg Documented By: ARNOL Sodium Chloride (0.9 % Sodium Chloride Flush 3 Ml Syringe) 3 ml IVFLUSH QSHIFT [facility] Last Admin: 12/26/22 10:36 Dose: 3 ml Documented By: ARNOL Vitamin D (Cholecalciferol (Vitamin D3) 25 Mcg Tablet) 25 mcg PO DAILY [facility] Last Admin: 12/26/22 10:37 Dose: 25 mcg Documented By: ARNOL Vitamin E (Vitamin E (Dl,Tocopheryl Acet) 180 Mg (400 Unit) Capsule) 180 mg PO DAILY [facility] Last Admin: 12/26/22 10:37 Dose: 180 mg Documented By: ARNOL Labs 12/25/22 07:16 12/26/22 08:42 Labs: Laboratory Results - last 24 hr 12/25/22 12/25/22 12/26/22 15:46 20:12 07:10 Anion Gap Estim Creat Clear Calc Estimated GFR POC Glucose 110 111 92 Random Glucose Calcium Iron TIBC % Saturation Unsat Iron Binding Ferritin 12/26/22 12/26/22 08:42 11:01 Anion Gap 14 Estim Creat Clear Calc 9.5 Estimated GFR 9 POC Glucose 86 Random Glucose 128 H Calcium 8.3 L Iron 41 TIBC 248 % Saturation 17 Unsat Iron Binding 207 Ferritin 60 Microbiology Microbiology Results: Microbiology 12/24/22 09:01 Blood Culture - Preliminary Blood - Venous No growth after 48 hours. 12/24/22 09:01 Blood Culture - Preliminary Blood - Venous No growth after 48 hours. Assessment and Plan (1) CKD (chronic kidney disease): Status: Acute (2) CHF (congestive heart failure): Status: Acute Plan 87-year-old female with a PMH significant for CAD, [place] and double bypass in 2019, CKD 4, HTN, hx of breast cancer, and [id number]-xzvglnwmo diabetes?who presents to the ED with?worsening shortness of breath x5 days. Pt will be admitted to the hospital for treatment and further evaluation of new onset CHF with IV diuretics. New onset diastolic CHF persistent shortness of breath, no chest pain, elevated BNP 814, CXR showed fluid overload continue Furosemide 40 mg IV qd, renal function stable echo showed EF 65-70% and grade 2 diastolic dysfunction ,no evidence of regional wall motion abnormality Follow lytes, I/O, Daily weights, low-salt diet being followed by Cardiology CKD stage 4 with metabolic acidosis creatinine stable at 4.4, around baseline seen by Nephrology they agree with above dose of Lasix, no indication for hemodialysis with no sign and symptoms of uremia, follow BMP while being diuresed. Elevated troponin troponin elevated but flat, no chest pain, EKG with no acute ST changes will follow echocardiogram elevated troponin likely due to chronic kidney disease and CHF Anemia of chronic disease Patient's H&H 8.9/29.1, near baseline, normal iron studies,Epogen as per Nephrology Nrq-olmbinr-omxvjfyhn diabetes stable blood sugars Continue Januvia, SSI Diabetic diet CAD Continue aspirin, statin HTN Continue amlodipine,and toprol xl 50mg stable blood pressure times 24 hours Hx of breast cancer Continue anastrozole GERD Continue pantoprazole Full Code DVT Prophylaxis: Heparin Pt will require continued inpatient hospitalization for treatment with IV diuretics of?new onset CHF and close monitoring of renal function while being diuresed. Time Spent With Patient Time: Total time managing care of this patient today ____ minutes. Quality Stroke Does the patient have a stroke diagnosis?: No VTE Prior VTE?: No VTE Risk Level:: Medical - moderate - high VTE Device Contraindication: Treatment Not Indicated VTE Drug Contraindication: N/A - Med Ordered
--- NOTE | 2022-12-26 12:39 | PM.PNCARD ---
Subjective Subjective Date of Service: 12/26/22 Interval history: Seen examined at bedside. Feeling better with oxygen. Still volume overloaded. Physical Exam Vital Signs: Last Vital Signs Temp 97.8 F 12/26/22 11:22 Pulse 75 12/26/22 11:22 Resp 20 12/26/22 11:22 BP 136/64 12/26/22 11:22 Pulse Ox 96 12/26/22 11:22 O2 Del Method Nasal Cannula 12/26/22 11:22 O2 Flow Rate 3 12/26/22 11:22 Oxygen Flow Rate 6 12/24/22 08:26 BMI result Body Mass Index 28.2 GENERAL APPEARANCE: in no acute distress, pleasant. NECK: no carotid bruit, + jugular venous distention. SKIN: no suspicious lesions, warm and dry. HEART: Systolic murmur aortic area with preserved 2nd heart sound, regular rate and rhythm. LUNGS: clear to auscultation bilaterally. ABDOMEN: soft, nontender. EXTREMITIES: Mild edema. PERIPHERAL PULSES: equal. NEUROLOGIC: No gross deficits, AAO X 3 Objective Labs and Meds 12/25/22 07:16 12/26/22 08:42 Lab results: Laboratory Results - last 24 hr 12/25/22 12/25/22 12/26/22 15:46 20:12 07:10 Sodium Potassium Chloride Carbon Dioxide Anion Gap BUN Creatinine Estim Creat Clear Calc Estimated GFR POC Glucose 110 111 92 Random Glucose Calcium Iron TIBC % Saturation Unsat Iron Binding Ferritin 12/26/22 12/26/22 08:42 11:01 Sodium 139 Potassium 4.5 Chloride 110 H Carbon Dioxide 20 L Anion Gap 14 BUN 61 H Creatinine 4.40 H* Estim Creat Clear Calc 9.5 Estimated GFR 9 POC Glucose 86 Random Glucose 128 H Calcium 8.3 L Iron 41 TIBC 248 % Saturation 17 Unsat Iron Binding 207 Ferritin 60 Progress Note: A&P Assessment and plan (1) Acute on chronic congestive heart failure: Status: Acute Plan [age] female with history of bypass surgery presenting with congestive heart failure. ECHO showing EF of 65 70% with basal inferior akinesis. Aortic valve is moderately calcified but no stenosis. Mildly increased right ventricular cavity size. Clinically she is overloaded. Agree with IV diuretics at this point. Monitor creatinine closely as she has advanced kidney disease. Continue IV diuretics for now. Blood pressure control is good. Thank you for allowing me to participate in the care of your patient. Please feel free to contact me if you have any questions. Time Spent With Patient Time: Total time managing care of this patient today ____ minutes. Progress Note: Quality Stroke Does the patient have a stroke diagnosis?: No Procedures Date of Service Date of Service: 12/26/22
[2022-12-26] MEDS: Acetaminophen 325 MG TABLET 650 MG PO ×2 (13:47→22:08)
[2022-12-26 15:28] VITALS: BP 128/60; PULSE 72; RESP 18; TEMP 36.1; O2SAT 94
[2022-12-26 15:40] LABS: Glucose, Whole Blood 95 mg/dL (60-115)
[2022-12-26 19:36] VITALS: BP 120/57; PULSE 65; RESP 17; TEMP 36.3; O2SAT 91
[2022-12-26 20:15] LABS: Glucose, Whole Blood 112 mg/dL (60-115)
[2022-12-26 23:19] VITALS: BP 116/57; PULSE 65; RESP 18; TEMP 36.4; O2SAT 92
[2022-12-27] MEDS: Heparin Sodium,Porcine 5,000 UNIT/ML VIAL 5000 UNIT SUBCUT ×2 (00:36→13:52)
[2022-12-27] MEDS: 0.9 % Sodium Chloride Flush 3 ML SYRINGE IVFLUSH ×2 (00:37→08:38)
[2022-12-27 03:25] VITALS: BP 117/58; PULSE 67; RESP 18; TEMP 36.6; O2SAT 94
[2022-12-27] MEDS: Omeprazole 20 MG CAPSULE.DR PO (05:30)
[2022-12-27 07:26] VITALS: BP 133/61; PULSE 67; RESP 18; TEMP 36.1; O2SAT 93
[2022-12-27 07:36] LABS: Glucose, Whole Blood 88 mg/dL (60-115)
[2022-12-27] MEDS: Vitamin E (Dl,Tocopheryl Acet) 180 MG (400 UNIT) CAPSULE PO (08:39)
[2022-12-27] MEDS: Anastrozole 1 MG TABLET PO (08:39)
[2022-12-27] MEDS: amLODIPine Besylate 10 MG TABLET PO (08:39)
[2022-12-27] MEDS: Furosemide 40 MG/4 ML VIAL IVPUSH (08:39)
[2022-12-27] MEDS: Ascorbic Acid 500 MG TABLET 1000 MG PO (08:39)
[2022-12-27] MEDS: Sodium Bicarbonate 650 MG TABLET PO (08:39)
[2022-12-27] MEDS: Cyanocobalamin (Vitamin B-12) 1,000 MCG TABLET 1000 MCG PO (08:39)
[2022-12-27] MEDS: Metoprolol Succinate ER 50 MG TAB.ER.24H PO (08:39)
[2022-12-27] MEDS: Atorvastatin Calcium 80 MG TABLET PO (08:39)
[2022-12-27] MEDS: Cholecalciferol (Vitamin D3) 25 MCG TABLET PO (08:39)
[2022-12-27] MEDS: Aspirin Enteric Coated 81 MG TABLET.DR PO (08:39)
[2022-12-27 09:50] LABS: Anion Gap 11 (12-20); Blood Urea Nitrogen 61 mg/dL (9-16); Calcium 8.4 mg/dL (8.4-10.2); Carbon Dioxide 20 mmol/L (22-29); Chloride 107 mmol/L (96-108); Creatinine Clr Calc Pharmacy 9.7; Estimated Glomerular Filt Rate 10; Glucose Random 87 mg/dL (60-115); Potassium 4.4 mmol/L (3.3-5.1); Sodium 134 mmol/L (135-145)
--- NOTE | 2022-12-27 10:58 | P.PNNP_ITS ---
Subjective Subjective Date of Service: 12/28/22 Interval history: Events noted. Sitting up. Comfortable. No dyspnea. Physical Exam Vital Signs: Vital Signs: Last Vital Signs Temp 97.0 F 12/27/22 07:26 Pulse 67 12/27/22 07:26 Resp 18 12/27/22 07:26 BP 133/61 12/27/22 07:26 Pulse Ox 93 12/27/22 07:26 O2 Del Method Nasal Cannula 12/27/22 07:26 O2 Flow Rate 2 12/27/22 07:26 Oxygen Flow Rate 6 12/24/22 08:26 BMI result Body Mass Index 28.2 Const: Other: General awake alert x3, in no acute distress. Neck no JVD. CVS regular rate rhythm, Respiratory lungs bibasilar crackles,no respiratory distress, no wheeze, no rh onchi. Gastrointestinal abdomen soft, non tender, bowel sounds audible, no guarding , no rigidity. Extremities mild left lower extremity edema Neuro nonfocal, speech clear. Skin no rash psych appropriate affect Objective Data Labs 12/25/22 07:16 12/27/22 08:18 Labs: Laboratory Results - last 24 hr 12/26/22 12/26/22 12/26/22 11:01 15:30 19:39 Sodium Potassium Chloride Carbon Dioxide Anion Gap BUN Creatinine Estim Creat Clear Calc Estimated GFR POC Glucose 86 95 112 Random Glucose Calcium 12/27/22 12/27/22 07:14 08:18 Sodium 134 L Potassium 4.4 Chloride 107 Carbon Dioxide 20 L Anion Gap 11 L BUN 61 H Creatinine 4.34 H* Estim Creat Clear Calc 9.7 Estimated GFR 10 POC Glucose 88 Random Glucose 87 Calcium 8.4 Microbiology Microbiology Results: Microbiology 12/24/22 09:01 Blood - Venous Blood Culture - Preliminary No growth after 48 hours. 12/24/22 09:01 Blood - Venous Blood Culture - Preliminary No growth after 48 hours. Procedures Date of Service Date of Service: 12/28/22 Assessment & Plan Assessment and plan (1) CKD (chronic kidney disease): Status: Acute (2) Acute on chronic congestive heart failure: Status: Acute Plan Elderly woman with advanced CKD admitted with shortness of breath due to fluid overload. Paulette has history of renal artery stenosis. She is undergone angioplasty with stent placement. At present renal function is close to baseline. She has no overt signs or symptoms of uremia. Recommendation keep her on low-sodium diet. Agree with IV Lasix. Keep output more than intake. Goal is to keep output more than input by 1-1.5 L every 24 hours. Continue to avoid nephrotoxic agents. Await echocardiogram report Appreciate cardiology input No absolute indication for dialysis today. We will reassess in the next 24-48 hours. Anemia due to underlying CKD. Iron stores adequate. I will start her on Epogen and optimize hemoglobin. Mild hyperchloremic metabolic acidosis due to advanced CKD. If CO2 drops below 18 I would add sodium bicarbonate tablets. Time Spent With Patient Time: Total time managing care of this patient today ____ minutes. Progress Note: Quality Stroke Does the patient have a stroke diagnosis?: No
[2022-12-27 11:09] VITALS: BP 133/60; PULSE 69; RESP 20; TEMP 36.6; O2SAT 94
--- NOTE | 2022-12-27 11:41 | HO.PM.IMPN ---
Subjective Subjective Date of Service: 12/27/22 Interval History: complaining of shortness of breath, unable to lie flat due to orthopnea, denies chest pain, no palpitations, no nausea, no vomiting, no abdominal pain, no fevers, no chills, no other acute issues overnight. Review of Systems all other system reviewed and negative Physical Exam Vital Signs: Vital Signs: Last Vital Signs Temp 97.9 F 12/27/22 11:09 Pulse 69 12/27/22 11:09 Resp 20 12/27/22 11:09 BP 133/60 12/27/22 11:09 Pulse Ox 94 12/27/22 11:09 O2 Del Method Nasal Cannula 12/27/22 11:09 O2 Flow Rate 2 12/27/22 11:09 Oxygen Flow Rate 6 12/24/22 08:26 BMI result Body Mass Index 28.2 Const: Other: General? awake alert x3, in no acute distress.? Neck + JVD. CVS? regular rate rhythm, Respiratory lungs?? clear , no rales, no respiratory distress, no wheeze, no rhonchi. Gastrointestinal abdomen soft, non tender, bowel sounds audible, no guarding , no rigidity. Extremities?no edema Neuro nonfocal, speech clear. Skin no rash psych appropriate affect Objective Data Active Medications Acetaminophen (Acetaminophen 325 Mg Tablet) 650 mg PO Q6H PRN PRN Reason: Pain, Mild (Pain Scale 1-3) Last Admin: 12/26/22 22:08 Dose: 650 mg Documented By: TONY Amlodipine Besylate (Amlodipine Besylate 10 Mg Tablet) 10 mg PO DAILY [facility]; Protocol Last Admin: 12/27/22 08:39 Dose: 10 mg Documented By: VICENTA Anastrozole (Anastrozole 1 Mg Tablet) 1 mg PO DAILY [facility] Last Admin: 12/27/22 08:39 Dose: 1 mg Documented By: VICENTA Ascorbic Acid (Ascorbic Acid 500 Mg Tablet) 1,000 mg PO DAILY [facility] Last Admin: 12/27/22 08:39 Dose: 1,000 mg Documented By: VICENTA Aspirin (Aspirin Enteric Coated 81 Mg Tablet.) 81 mg PO DAILY [facility] Last Admin: 12/27/22 08:39 Dose: 81 mg Documented By: VICENTA Atorvastatin Calcium (Atorvastatin Calcium 80 Mg Tablet) 80 mg PO DAILY [facility] Last Admin: 12/27/22 08:39 Dose: 80 mg Documented By: VICENTA Cyanocobalamin (Cyanocobalamin (Vitamin B-12) 1,000 Mcg Tablet) 1,000 mcg PO DAILY [facility] Last Admin: 12/27/22 08:39 Dose: 1,000 mcg Documented By: VICENTA Dextrose (Dextrose 50 % 25 Gm/50 Ml Syringe) 25 gm IVPUSH Q15M PRN; Protocol PRN Reason: per Hypoglycemia Standing Ord. Docusate Sodium (Docusate Sodium 100 Mg Capsule) 100 mg PO DAILY PRN PRN Reason: Constipation Furosemide (Furosemide 40 Mg/4 Ml Vial) 40 mg IVPUSH DAILY [facility]; Protocol Last Admin: 12/27/22 08:39 Dose: 40 mg Documented By: VICENTA Glucose (Glucose Gel 15 Gm Gel..Gram.) 15 gm PO Q15M PRN; Protocol PRN Reason: per Hypoglycemia Standing Ord. Heparin Sodium (Porcine) (Heparin Sodium,Porcine 5,000 Unit/Ml Vial) 5,000 unit SUBCUT Q12H [facility] Last Admin: 12/27/22 00:36 Dose: 5,000 unit Documented By: TONY Insulin Human Lispro (Insulin Lispro 100 Unit/Ml 3 Ml Vial) 0 unit SUBCUT QIDACHS [facility]; Protocol Last Admin: 12/27/22 07:38 Dose: Not Given Documented By: VICENTA Non-Admin Reason: No Insulin Coverage Metoprolol Succinate (Metoprolol Succinate Er 50 Mg Tab.Er.24h) 50 mg PO DAILY [facility]; Protocol Last Admin: 12/27/22 08:39 Dose: 50 mg Documented By: VICENTA Omeprazole (Omeprazole 20 Mg Capsule.) 20 mg PO DAILY@0630 [facility] Last Admin: 12/27/22 05:30 Dose: 20 mg Documented By: TONY Ondansetron HCl (Ondansetron Hcl 4 Mg/2 Ml Vial) 4 mg IVPUSH Q8H PRN PRN Reason: Nausea and Vomiting Pharmacy Consult (Consult Rx Perform Med Rec) 1 each MISCELLANE ONCE PRN PRN Reason: Consult order Sitagliptin Phosphate (Sitagliptin Phosphate 25 Mg Tablet) 25 mg PO DAILY [facility] Last Admin: 12/27/22 08:46 Dose: Not Given Documented By: VICENTA Non-Admin Reason: Physician Held Med Sodium Bicarbonate (Sodium Bicarbonate 650 Mg Tablet) 650 mg PO DAILY [facility] Last Admin: 12/27/22 08:39 Dose: 650 mg Documented By: VICENTA Sodium Chloride (0.9 % Sodium Chloride Flush 3 Ml Syringe) 3 ml IVFLUSH QSHIFT [facility] Last Admin: 12/27/22 08:38 Dose: 3 ml Documented By: VICENTA Vitamin D (Cholecalciferol (Vitamin D3) 25 Mcg Tablet) 25 mcg PO DAILY [facility] Last Admin: 12/27/22 08:39 Dose: 25 mcg Documented By: VICENTA Vitamin E (Vitamin E (Dl,Tocopheryl Acet) 180 Mg (400 Unit) Capsule) 180 mg PO DAILY [facility] Last Admin: 12/27/22 08:39 Dose: 180 mg Documented By: VICENTA Labs 12/25/22 07:16 12/27/22 08:18 Labs: Laboratory Results - last 24 hr 12/26/22 12/26/22 12/27/22 15:30 19:39 07:14 Anion Gap Estim Creat Clear Calc Estimated GFR POC Glucose 95 112 88 Random Glucose Calcium 12/27/22 08:18 Anion Gap 11 L Estim Creat Clear Calc 9.7 Estimated GFR 10 POC Glucose Random Glucose 87 Calcium 8.4 Microbiology Microbiology Results: Microbiology 12/24/22 09:01 Blood Culture - Preliminary Blood - Venous No growth after 48 hours. 12/24/22 09:01 Blood Culture - Preliminary Blood - Venous No growth after 48 hours. Assessment and Plan (1) CKD (chronic kidney disease): Status: Acute (2) CHF (congestive heart failure): Status: Acute Plan 87-year-old female with a PMH significant for CAD, [place] and double bypass in 2019, CKD 4, HTN, hx of breast cancer, and lqv-zjurufi-zorlnblws diabetes?who presents to the ED with?worsening shortness of breath x5 days. Pt will be admitted to the hospital for treatment and further evaluation of new onset CHF with IV diuretics. New onset diastolic CHF persistent shortness of breath, orthopnea, no chest pain, elevated BNP 814, CXR showed fluid overload continue Furosemide 40 mg IV qd, renal function remains stable, will avoid excessive diuresis to avoid worsening renal function. echo showed EF 65-70% and grade 2 diastolic dysfunction ,no evidence of regional wall motion abnormality Follow BMP, I/O, Daily weights, low-salt diet being followed by Cardiology CKD stage 4 with metabolic acidosis creatinine stable around 4, ,seen by Nephrology they agree with above dose of Lasix, no indication for hemodialysis with no sign and symptoms of uremia, follow BMP while being diuresed. Elevated troponin troponin elevated but flat, no chest pain, EKG with no acute ST echocardiogram showed no wall motion abnormality, elevated troponin likely due to chronic kidney disease and CHF Anemia of chronic disease Patient's H&H 8.9/29.1, near baseline, normal iron studies,Epogen as per Nephrology Byc-hbsqbke-besrszlah diabetes stable blood sugars Continue Januvia, SSI Diabetic diet CAD Continue aspirin, statin HTN Continue amlodipine,and toprol xl 50mg stable blood pressure Hx of breast cancer Continue anastrozole GERD Continue pantoprazole Full Code DVT Prophylaxis: Heparin Pt will require continued inpatient hospitalization for treatment with IV diuretics of?new onset CHF and close monitoring of renal function while being diuresed. Time Spent With Patient Time: Total time managing care of this patient today ____ minutes. Quality Stroke Does the patient have a stroke diagnosis?: No VTE Prior VTE?: No VTE Risk Level:: Medical - moderate - high VTE Device Contraindication: Treatment Not Indicated VTE Drug Contraindication: N/A - Med Ordered
[2022-12-27 11:57] LABS: Glucose, Whole Blood 84 mg/dL (60-115)
--- NOTE | 2022-12-27 15:13 | P.CDIM_ITS ---
PROVIDER RESPONSE TEXT: To clarify, the appropriate diagnosis supported by the clinical indicators: Chronic stable condition QUERY TEXT: PHYSICIAN'S DOCUMENTATION REQUEST Date of Query: 12/26/2022 01:14 PM EDT Patient Name: Paulette Martínez Admit Date: 12/24/2022 Dear Elise Sanders, A review of the medical record indicates additional documentation may be needed. Please review below and update the documentation accordingly. Clinical Indicators: Per Hospitalist Progress Note 12/26/22: CKD stage 4 with metabolic acidosis creatinine 4.55, around baseline Clarify which of the following accurately represents the acuity of the Metabolic acidosis. Possible options might include: Acute Acute on chronic Compensated Chronic stable condition Remission Other (explain)Clinically unable to determine (explain)Thank you, Shalini Casey RN Use of terms such as suspected, likely, concern for, or probable (associated with a specific diagnosi s that is being evaluated, monitored, or treated as if it exists) are acceptable and can be coded in the inpatient se tting, when documented at the time of discharge. Please use your independent medical judgment in providing your response. THIS QUERY IS PART OF THE PERMANENT MEDICAL RECORD
[2022-12-27 15:17] VITALS: BP 124/63; PULSE 71; RESP 20; TEMP 36.9; O2SAT 98
[2022-12-27 16:16] LABS: Glucose, Whole Blood 84 mg/dL (60-115)
--- NOTE | 2022-12-27 17:07 | PM.PNCARD ---
Subjective Subjective Date of Service: 12/27/22 Interval history: Seen examined at bedside. Feeling better. Physical Exam Vital Signs: Last Vital Signs Temp 98.4 F 12/27/22 15:17 Pulse 71 12/27/22 15:17 Resp 20 12/27/22 15:17 BP 124/63 12/27/22 15:17 Pulse Ox 98 12/27/22 15:17 O2 Del Method Nasal Cannula 12/27/22 15:17 O2 Flow Rate 2 12/27/22 11:09 Oxygen Flow Rate 6 12/24/22 08:26 BMI result Body Mass Index 28.2 GENERAL APPEARANCE: in no acute distress, pleasant. NECK: no carotid bruit, + jugular venous distention. SKIN: no suspicious lesions, warm and dry. HEART: Systolic murmur aortic area with preserved 2nd heart sound, regular rate and rhythm. LUNGS: clear to auscultation bilaterally. ABDOMEN: soft, nontender. EXTREMITIES: Mild edema. PERIPHERAL PULSES: equal. NEUROLOGIC: No gross deficits, AAO X 3 Objective Labs and Meds 12/25/22 07:16 12/27/22 08:18 Lab results: Laboratory Results - last 24 hr 12/26/22 12/27/22 12/27/22 19:39 07:14 08:18 Sodium 134 L Potassium 4.4 Chloride 107 Carbon Dioxide 20 L Anion Gap 11 L BUN 61 H Creatinine 4.34 H* Estim Creat Clear Calc 9.7 Estimated GFR 10 POC Glucose 112 88 Random Glucose 87 Calcium 8.4 12/27/22 12/27/22 11:27 16:12 Sodium Potassium Chloride Carbon Dioxide Anion Gap BUN Creatinine Estim Creat Clear Calc Estimated GFR POC Glucose 84 84 Random Glucose Calcium Progress Note: A&P Assessment and plan (1) Acute on chronic congestive heart failure: Status: Acute Plan Pleasant 87 year female who is here for acute on chronic congestive heart failure. On IV diuretics and improving. I think she can be transitioned to oral diuretics tomorrow. She should be weaned off oxygen tomorrow. She is anemic. She has a flow murmur on examination. I think if she can not get 1 unit of blood that will definitely help her symptoms and heart failure. We will follow along with you. Thank you for allowing me to participate in the care of your patient. Please feel free to contact me if you have any questions. Time Spent With Patient Time: Total time managing care of this patient today ____ minutes. Progress Note: Quality Stroke Does the patient have a stroke diagnosis?: No Procedures Date of Service Date of Service: 12/27/22
[2022-12-27 19:11] VITALS: BP 119/60; PULSE 69; RESP 20; TEMP 37.1; O2SAT 92
[2022-12-27 20:46] LABS: Glucose, Whole Blood 109 mg/dL (60-115)
[2022-12-27 23:10] VITALS: BP 125/65; PULSE 79; RESP 18; TEMP 36; O2SAT 93
[2022-12-28] VITALS (7 sets, daily range): BP systolic 124–143; BP diastolic 58–67; PULSE 74–81; RESP 18–20; TEMP 36.3–37.1; O2SAT 93–98; BMI 28.1
[2022-12-28] MEDS: Heparin Sodium,Porcine 5,000 UNIT/ML VIAL 5000 UNIT SUBCUT ×2 (00:55→12:37)
[2022-12-28] MEDS: 0.9 % Sodium Chloride Flush 3 ML SYRINGE IVFLUSH ×3 (00:55→19:51)
[2022-12-28] MEDS: Omeprazole 20 MG CAPSULE.DR PO (05:46)
[2022-12-28 07:28] LABS: Anion Gap 17 (12-20); Blood Urea Nitrogen 62 mg/dL (9-16); Calcium 8.6 mg/dL (8.4-10.2); Carbon Dioxide 20 mmol/L (22-29); Chloride 108 mmol/L (96-108); Creatinine Clr Calc Pharmacy 9.6; Estimated Glomerular Filt Rate 10; Glucose Random 98 mg/dL (60-115); Potassium 4.5 mmol/L (3.3-5.1); Sodium 140 mmol/L (135-145)
[2022-12-28 07:31] LABS: B Type Natriuretic Peptide 227 pg/mL (<100)
[2022-12-28 07:50] LABS: Glucose, Whole Blood 97 mg/dL (60-115)
--- NOTE | 2022-12-28 08:47 | PM.PNCARD ---
Subjective Subjective Date of Service: 12/28/22 Interval history: Seen examined at bedside. Feeling better. Physical Exam Vital Signs: Last Vital Signs Temp 98.1 F 12/28/22 07:59 Pulse 80 12/28/22 07:59 Resp 20 12/28/22 07:59 BP 143/67 H 12/28/22 07:59 Pulse Ox 94 12/28/22 07:59 O2 Del Method Nasal Cannula 12/28/22 07:59 O2 Flow Rate 1 12/28/22 07:59 Oxygen Flow Rate 6 12/24/22 08:26 BMI result Body Mass Index 28.1 GENERAL APPEARANCE: in no acute distress, pleasant. NECK: no carotid bruit, + jugular venous distention. SKIN: no suspicious lesions, warm and dry. HEART: Systolic murmur aortic area with preserved 2nd heart sound, regular rate and rhythm. LUNGS: clear to auscultation bilaterally. ABDOMEN: soft, nontender. EXTREMITIES: Mild edema. PERIPHERAL PULSES: equal. NEUROLOGIC: No gross deficits, AAO X 3 Objective Labs and Meds 12/25/22 07:16 12/28/22 06:31 Lab results: Laboratory Results - last 24 hr 12/27/22 12/27/22 12/27/22 08:18 11:27 16:12 Sodium 134 L Potassium 4.4 Chloride 107 Carbon Dioxide 20 L Anion Gap 11 L BUN 61 H Creatinine 4.34 H* Estim Creat Clear Calc 9.7 Estimated GFR 10 POC Glucose 84 84 Random Glucose 87 Calcium 8.4 B-Natriuretic Peptide 12/27/22 12/28/22 12/28/22 20:43 06:31 06:31 Sodium 140 Potassium 4.5 Chloride 108 Carbon Dioxide 20 L Anion Gap 17 BUN 62 H Creatinine 4.36 H* Estim Creat Clear Calc 9.6 Estimated GFR 10 POC Glucose 109 Random Glucose 98 Calcium 8.6 B-Natriuretic Peptide 227 H 12/28/22 07:45 Sodium Potassium Chloride Carbon Dioxide Anion Gap BUN Creatinine Estim Creat Clear Calc Estimated GFR POC Glucose 97 Random Glucose Calcium B-Natriuretic Peptide Progress Note: A&P Assessment and plan (1) Acute on chronic congestive heart failure: Status: Acute (2) CKD (chronic kidney disease): Status: Acute Plan Pleasant 87 year female who is here for acute on chronic congestive heart failure. Volume status improving. I think she should stay on IV Lasix today. She was started on sodium bicarbonate a week ago. I had a discussion with Nephrology and it was felt that we should continue it for now. If she has recurrent heart failure then I thing sodium bicarbonate should be stopped. Please try to wean off oxygen. Thank you for allowing me to participate in the care of your patient. Please feel free to contact me if you have any questions. Time Spent With Patient Time: Total time managing care of this patient today ____ minutes. Progress Note: Quality Stroke Does the patient have a stroke diagnosis?: No Procedures Date of Service Date of Service: 12/28/22
[2022-12-28] MEDS: Cyanocobalamin (Vitamin B-12) 1,000 MCG TABLET 1000 MCG PO (10:12)
[2022-12-28] MEDS: amLODIPine Besylate 10 MG TABLET PO (10:12)
[2022-12-28] MEDS: Metoprolol Succinate ER 50 MG TAB.ER.24H PO (10:12)
[2022-12-28] MEDS: Vitamin E (Dl,Tocopheryl Acet) 180 MG (400 UNIT) CAPSULE PO (10:12)
[2022-12-28] MEDS: Aspirin Enteric Coated 81 MG TABLET.DR PO (10:12)
--- NOTE | 2022-12-28 10:12 | PM.PNNEP ---
Subjective Subjective Date of Service: 12/29/22 Interval history: complaining of shortness of breath, unable to lie flat due to orthopnea, denies chest pain, no palpitations, no nausea, no vomiting, no abdominal pain, no fevers, no chills, no other acute issues overnight. Physical Exam Vital Signs: Vital Signs: Last Vital Signs Temp 98.1 F 12/28/22 07:59 Pulse 80 12/28/22 07:59 Resp 20 12/28/22 07:59 BP 143/67 H 12/28/22 07:59 Pulse Ox 94 12/28/22 07:59 O2 Del Method Nasal Cannula 12/28/22 07:59 O2 Flow Rate 1 12/28/22 07:59 Oxygen Flow Rate 6 12/24/22 08:26 BMI result Body Mass Index 28.1 Const: Other: General awake alert x3, in no acute distress. Neck no JVD. CVS regular rate rhythm, Respiratory lungs bibasilar crackles,no respiratory distress, no wheeze, no rhonchi. Gastrointestinal abdomen soft, non tender, bowel sounds audible, no guarding , no rigidity. Extremities mild left lower extremity edema Neuro nonfocal, speech clear. Skin no rash psych appropriate affect Objective Data Labs 12/25/22 07:16 12/28/22 06:31 Labs: Laboratory Results - last 24 hr 12/27/22 12/27/22 12/27/22 11:27 16:12 20:43 Sodium Potassium Chloride Carbon Dioxide Anion Gap BUN Creatinine Estim Creat Clear Calc Estimated GFR POC Glucose 84 84 109 Random Glucose Calcium B-Natriuretic Peptide 12/28/22 12/28/22 12/28/22 06:31 06:31 07:45 Sodium 140 Potassium 4.5 Chloride 108 Carbon Dioxide 20 L Anion Gap 17 BUN 62 H Creatinine 4.36 H* Estim Creat Clear Calc 9.6 Estimated GFR 10 POC Glucose 97 Random Glucose 98 Calcium 8.6 B-Natriuretic Peptide 227 H Microbiology Microbiology Results: Microbiology 12/24/22 09:01 Blood - Venous Blood Culture - Preliminary No growth after 48 hours. 12/24/22 09:01 Blood - Venous Blood Culture - Preliminary No growth after 48 hours. Procedures Date of Service Date of Service: 12/29/22 Assessment & Plan Assessment and plan (1) CKD (chronic kidney disease): Status: Acute (2) Acute on chronic congestive heart failure: Status: Acute Plan Elderly woman with advanced CKD admitted with shortness of breath due to fluid overload. Paulette has history of renal artery stenosis. She is undergone angioplasty with stent placement. At present renal function is close to baseline. She has no overt signs or symptoms of uremia. Recommendation keep her on low-sodium diet. Keep output more than intake. Goal is to keep output more than input by 1-1.5 L every 24 hours. Continue to avoid nephrotoxic agents. Can switch to PO Lasix 40 mg QD Appreciate cardiology input No absolute indication for dialysis today. We will reassess in the next 24-48 hours. Anemia due to underlying CKD. Iron stores adequate. Epogen and optimize hemoglobin.- Mild hyperchloremic metabolic acidosis due to advanced CKD. Keep Sod Bicarb 650 mg QD Time Spent With Patient Time: Total time managing care of this patient today ____ minutes. Progress Note: Quality Stroke Does the patient have a stroke diagnosis?: No
[2022-12-28] MEDS: Ascorbic Acid 500 MG TABLET 1000 MG PO (10:13)
[2022-12-28] MEDS: Furosemide 40 MG/4 ML VIAL IVPUSH (10:13)
[2022-12-28] MEDS: Atorvastatin Calcium 80 MG TABLET PO (10:13)
[2022-12-28] MEDS: Cholecalciferol (Vitamin D3) 25 MCG TABLET PO (10:13)
[2022-12-28] MEDS: Anastrozole 1 MG TABLET PO (10:13)
[2022-12-28] MEDS: Sodium Bicarbonate 650 MG TABLET PO (10:20)
[2022-12-28 11:34] LABS: Glucose, Whole Blood 109 mg/dL (60-115)
--- NOTE | 2022-12-28 12:32 | P.PNIM_ITS ---
Subjective Subjective Date of Service: 12/28/22 Interval History: seen and examined this morning follow up for CHF feeling better this am, no significant sob Review of Systems Review of Systems: Yes all other systems are reviewed and are negative Constitutional Constitutional: Denies chills and Denies fever(s) ENT Ears, Nose, Mouth, and Throat: Denies dizziness Cardiovascular Cardiovascular: Denies chest pain, Denies palpitations and Denies dyspnea Respiratory Respiratory: Denies cough and Denies dyspnea Gastrointestinal Gastrointestinal: Denies abdominal pain, Denies nausea and Denies vomiting Neurologic Neurologic: Denies dizziness Endocrine Endocrine: Denies palpitations Physical Exam Vital Signs: Vital Signs: Last Vital Signs Temp 97.5 F 12/28/22 11:12 Pulse 75 12/28/22 11:12 Resp 18 12/28/22 11:12 BP 134/61 12/28/22 11:12 Pulse Ox 98 12/28/22 11:12 O2 Del Method Nasal Cannula 12/28/22 11:12 O2 Flow Rate 1 12/28/22 11:12 Oxygen Flow Rate 6 12/24/22 08:26 BMI result Body Mass Index 28.1 Const: General: cooperative, comfortable, no acute distress, alert and awake Nutritional Appearance: average body habitus Orientation/consciousness: patient oriented x3 Resp: Effort & Inspection: normal respiratory effort, able to speak in complete sentences, no respiratory distress and no use of accessory muscles Cardio: Rate: regular rate Heart sounds: S1 normal heart sound present and S2 normal heart sound present GI: Inspection: No distended Palpation (GI): Soft to palpation and nontender Neuro: General: patient oriented x3, moves all extremities and CN's II-XI intact bilaterally Extrem: General: Yes no pedal edema Objective Data Active Medications Acetaminophen (Acetaminophen 325 Mg Tablet) 650 mg PO Q6H PRN PRN Reason: Pain, Mild (Pain Scale 1-3) Last Admin: 12/26/22 22:08 Dose: 650 mg Documented By: TONY Amlodipine Besylate (Amlodipine Besylate 10 Mg Tablet) 10 mg PO DAILY [facility]; Protocol Last Admin: 12/28/22 10:12 Dose: 10 mg Documented By: VICENTA Anastrozole (Anastrozole 1 Mg Tablet) 1 mg PO DAILY [facility] Last Admin: 12/28/22 10:13 Dose: 1 mg Documented By: VICENTA Ascorbic Acid (Ascorbic Acid 500 Mg Tablet) 1,000 mg PO DAILY [facility] Last Admin: 12/28/22 10:13 Dose: 1,000 mg Documented By: VICENTA Aspirin (Aspirin Enteric Coated 81 Mg Tablet.) 81 mg PO DAILY [facility] Last Admin: 12/28/22 10:12 Dose: 81 mg Documented By: VICENTA Atorvastatin Calcium (Atorvastatin Calcium 80 Mg Tablet) 80 mg PO DAILY [facility] Last Admin: 12/28/22 10:13 Dose: 80 mg Documented By: VICENTA Cyanocobalamin (Cyanocobalamin (Vitamin B-12) 1,000 Mcg Tablet) 1,000 mcg PO DAILY [facility] Last Admin: 12/28/22 10:12 Dose: 1,000 mcg Documented By: VICENTA Dextrose (Dextrose 50 % 25 Gm/50 Ml Syringe) 25 gm IVPUSH Q15M PRN; Protocol PRN Reason: per Hypoglycemia Standing Ord. Docusate Sodium (Docusate Sodium 100 Mg Capsule) 100 mg PO DAILY PRN PRN Reason: Constipation Furosemide (Furosemide 40 Mg/4 Ml Vial) 40 mg IVPUSH DAILY [facility]; Protocol Last Admin: 12/28/22 10:13 Dose: 40 mg Documented By: VICENTA Glucose (Glucose Gel 15 Gm Gel..Gram.) 15 gm PO Q15M PRN; Protocol PRN Reason: per Hypoglycemia Standing Ord. Heparin Sodium (Porcine) (Heparin Sodium,Porcine 5,000 Unit/Ml Vial) 5,000 unit SUBCUT Q12H [facility] Last Admin: 12/28/22 00:55 Dose: 5,000 unit Documented By: ART Insulin Human Lispro (Insulin Lispro 100 Unit/Ml 3 Ml Vial) 0 unit SUBCUT QIDACHS [facility]; Protocol Last Admin: 12/28/22 12:09 Dose: Not Given Documented By: VICENTA Non-Admin Reason: No Insulin Coverage Metoprolol Succinate (Metoprolol Succinate Er 50 Mg Tab.Er.24h) 50 mg PO DAILY [facility]; Protocol Last Admin: 12/28/22 10:12 Dose: 50 mg Documented By: VICENTA Omeprazole (Omeprazole 20 Mg Capsule.) 20 mg PO DAILY@0630 [facility] Last Admin: 12/28/22 05:46 Dose: 20 mg Documented By: ART Ondansetron HCl (Ondansetron Hcl 4 Mg/2 Ml Vial) 4 mg IVPUSH Q8H PRN PRN Reason: Nausea and Vomiting Pharmacy Consult (Consult Rx Perform Med Rec) 1 each MISCELLANE ONCE PRN PRN Reason: Consult order Sitagliptin Phosphate (Sitagliptin Phosphate 25 Mg Tablet) 25 mg PO DAILY [facility] Last Admin: 12/28/22 10:16 Dose: Not Given Documented By: VICENTA Non-Admin Reason: Patient Condition Contraindication Sodium Bicarbonate (Sodium Bicarbonate 650 Mg Tablet) 650 mg PO DAILY [facility] Last Admin: 12/28/22 10:20 Dose: 650 mg Documented By: VICENTA Sodium Chloride (0.9 % Sodium Chloride Flush 3 Ml Syringe) 3 ml IVFLUSH QSHIFT [facility] Last Admin: 12/28/22 10:14 Dose: 3 ml Documented By: VICENTA Vitamin D (Cholecalciferol (Vitamin D3) 25 Mcg Tablet) 25 mcg PO DAILY [facility] Last Admin: 12/28/22 10:13 Dose: 25 mcg Documented By: VICENTA Vitamin E (Vitamin E (Dl,Tocopheryl Acet) 180 Mg (400 Unit) Capsule) 180 mg PO DAILY [facility] Last Admin: 12/28/22 10:12 Dose: 180 mg Documented By: VICENTA Labs 12/25/22 07:16 12/28/22 06:31 Labs: Laboratory Results - last 24 hr 12/27/22 12/27/22 12/28/22 16:12 20:43 06:31 Anion Gap 17 Estim Creat Clear Calc 9.6 Estimated GFR 10 POC Glucose 84 109 Random Glucose 98 Calcium 8.6 B-Natriuretic Peptide 12/28/22 12/28/22 12/28/22 06:31 07:45 11:30 Anion Gap Estim Creat Clear Calc Estimated GFR POC Glucose 97 109 Random Glucose Calcium B-Natriuretic Peptide 227 H Assessment and Plan (1) Acute on chronic congestive heart failure: Status: Acute (2) CKD (chronic kidney disease): Status: Acute Plan 87-year-old female with a PMH significant for CAD, MT and double bypass in 2019, CKD 4, HTN, hx of breast cancer, and evp-unprkuz-rqtumpcxp diabetes?who presents to the ED with?worsening shortness of breath x5 days. Pt will be admitted to the hospital for treatment and further evaluation of new onset CHF with IV diuretics. New onset diastolic CHF slowly improving negative >3 L to date wean supplemental oxygen as tolerated on 1L at rest but de-sats with ambulation - may need home o2 eval prior to d/c continue Furosemide 40 mg IV QD one more day echo showed EF 65-70% and grade 2 diastolic dysfunction, no evidence of regional wall motion abnormality Follow BMP, I/O, Daily weights, low-salt diet Cardiology following CKD stage 4 with metabolic acidosis creatinine stable around 4 Nephrology following - agree with above dose of Lasix, no indication for hemodialysis with no sign and symptoms of uremia, follow BMP while being diuresed continue sodium bicarbonate Elevated troponin troponin elevated but flat, no chest pain, EKG with no acute ST echocardiogram showed no wall motion abnormality, elevated troponin likely due to chronic kidney disease and CHF Anemia of chronic disease Patient's H&H 8.9/29.1, near baseline, normal iron studies Epogen outpatient as per Nephrology Nnx-ycmbfah-zjhfhvgrl diabetes stable blood sugars Continue Januvia, SSI Diabetic diet CAD Continue aspirin, statin, metoprolol HTN Continue amlodipine,and toprol xl Hx of breast cancer Continue anastrozole GERD Continue pantoprazole Full Code DVT Prophylaxis: Heparin attending - dr. gilliam dispo - PT rec home with services when medically ready Pt will require continued inpatient hospitalization for treatment with IV diuretics of?new onset CHF and close monitoring of renal function while being diuresed. Time Spent With Patient Time: Total time managing care of this patient today ____ minutes. Quality Stroke Does the patient have a stroke diagnosis?: No VTE Prior VTE?: No VTE Risk Level:: Medical - moderate - high VTE Device Contraindication: Treatment Not Indicated VTE Drug Contraindication: N/A - Med Ordered
--- NOTE | 2022-12-28 12:49 | MHC.CM.PN ---
Addendum entered by Alma Lilly RN 12/29/22 14:46: PT WILL ALSO DC WITH [facility] FOR 3L O2 NC W/ACTIVITY, PT'S DTR WILL PICK PT UP AT 4PM. Addendum entered by Alma Lilly RN 12/28/22 13:55: CM RECEIVED MESSAGE FROM [facility] THAT THEY ARE AT CAPACITY AND UNABLE TO PROVIDE SERVICES, [facility] CAN PROVIDE SERVICES W/IN 48HRS OF DC. Original Note: EMR REVIEWED, PER HOSPITALIST PT WILL BE CHANGED TO [facility], PT RECOMMENDING HOME W/SERVICES, REFERRAL PLACED TO [facility] AND [facility], PER PT [facility] IS PREFERRED. ANTIC POSSIBLE D/C TOMORROW 12/29, CM WILL CONT TO FOLLOW D/C NEEDS.
[2022-12-28 15:59] LABS: Glucose, Whole Blood 136 mg/dL (60-115)
[2022-12-28 20:40] LABS: Glucose, Whole Blood 134 mg/dL (60-115)
[2022-12-29] MEDS: Heparin Sodium,Porcine 5,000 UNIT/ML VIAL 5000 UNIT SUBCUT ×2 (00:25→12:18)
[2022-12-29 02:55] VITALS: BP 132/63; PULSE 74; RESP 20; TEMP 36.6; O2SAT 95
[2022-12-29] MEDS: Omeprazole 20 MG CAPSULE.DR PO (05:43)
[2022-12-29 06:56] LABS: Hematocrit 25.8 % (37.0-47.0); Hemoglobin 8.2 g/dl (12.0-16.0); Mean Corpuscular HGB Conc 31.8 g/dl (31.0-35.0); Mean Corpuscular Volume 94.5 fL (80.0-98.0); Platelet Count 192 X10*3/uL (160-400); Red Blood Count 2.73 X10*6/uL (4.20-5.50); Red Cell Distribution Width 15.1 % (11.0-16.0); White Blood Count 8.1 X10*3/uL (4.8-10.8)
[2022-12-29 07:16] LABS: Anion Gap 18 (12-20); Blood Urea Nitrogen 70 mg/dL (9-16); Calcium 8.8 mg/dL (8.4-10.2); Carbon Dioxide 20 mmol/L (22-29); Chloride 108 mmol/L (96-108); Creatinine Clr Calc Pharmacy 9.9; Estimated Glomerular Filt Rate 10; Glucose Random 104 mg/dL (60-115); Potassium 4.6 mmol/L (3.3-5.1); Sodium 141 mmol/L (135-145)
[2022-12-29 07:40] VITALS: BP 145/92; PULSE 76; RESP 20; TEMP 36.6; O2SAT 95
[2022-12-29 07:57] LABS: Glucose, Whole Blood 101 mg/dL (60-115)
--- NOTE | 2022-12-29 08:10 | PM.PNCARD ---
Subjective Subjective Date of Service: 12/29/22 Interval history: Seen and examined at bedside. Doing well, off oxygen. Physical Exam Vital Signs: Last Vital Signs Temp 97.9 F 12/29/22 07:40 Pulse 76 12/29/22 07:40 Resp 20 12/29/22 07:40 BP 145/92 H 12/29/22 07:40 Pulse Ox 95 12/29/22 07:40 O2 Del Method Nasal Cannula 12/29/22 07:40 O2 Flow Rate 1 12/29/22 07:40 Oxygen Flow Rate 6 12/24/22 08:26 BMI result Body Mass Index 28.1 GENERAL APPEARANCE: in no acute distress, pleasant. NECK: no carotid bruit, mild jugular venous distention. SKIN: no suspicious lesions, warm and dry. HEART: Systolic murmur aortic area with preserved 2nd heart sound, regular rate and rhythm. LUNGS: clear to auscultation bilaterally. ABDOMEN: soft, nontender. EXTREMITIES: No edema. PERIPHERAL PULSES: equal. NEUROLOGIC: No gross deficits, AAO X 3 Objective Labs and Meds 12/29/22 06:16 12/29/22 06:16 Lab results: Laboratory Results - last 24 hr 12/28/22 12/28/22 12/28/22 11:30 15:51 20:01 WBC RBC Hgb Hct MCV MCH MCHC RDW Plt Count MPV Absolute Nucleated RBC Nucleated RBC % (auto) Sodium Potassium Chloride Carbon Dioxide Anion Gap BUN Creatinine Estim Creat Clear Calc Estimated GFR POC Glucose 109 136 H 134 H Random Glucose Calcium 12/29/22 12/29/22 12/29/22 06:16 06:16 07:40 WBC 8.1 RBC 2.73 L Hgb 8.2 L Hct 25.8 L MCV 94.5 MCH 30.0 MCHC 31.8 RDW 15.1 Plt Count 192 MPV 10.0 Absolute Nucleated RBC 0.000 Nucleated RBC % (auto) 0.0 Sodium 141 Potassium 4.6 Chloride 108 Carbon Dioxide 20 L Anion Gap 18 BUN 70 H Creatinine 4.24 H* Estim Creat Clear Calc 9.9 Estimated GFR 10 POC Glucose 101 Random Glucose 104 Calcium 8.8 Progress Note: A&P Assessment and plan (1) Acute on chronic congestive heart failure: Status: Acute (2) CKD (chronic kidney disease): Status: Acute Plan Pleasant 87 year female who is here for acute on chronic congestive heart failure. Volume status improving. Stopping IV Lasix today and changing her to 80 mg p.o. Lasix once a day. She was started on sodium bicarbonate a week ago. I had a discussion with Nephrology and it was felt that we should continue it for now. If she has recurrent heart failure then I think sodium bicarbonate should be stopped. She has been off oxygen. She should be ambulated and we should start planning discharge. Thank you for allowing me to participate in the care of your patient. Please feel free to contact me if you have any questions. Time Spent With Patient Time: Total time managing care of this patient today ____ minutes. Progress Note: Quality Stroke Does the patient have a stroke diagnosis?: No Procedures Date of Service Date of Service: 12/29/22
[2022-12-29] MEDS: Furosemide 40 MG TABLET 80 MG PO (08:46)
[2022-12-29] MEDS: Metoprolol Succinate ER 50 MG TAB.ER.24H PO (08:47)
[2022-12-29] MEDS: Ascorbic Acid 500 MG TABLET 1000 MG PO (08:47)
[2022-12-29] MEDS: amLODIPine Besylate 10 MG TABLET PO (08:47)
[2022-12-29] MEDS: Sodium Bicarbonate 650 MG TABLET PO (08:47)
[2022-12-29] MEDS: Atorvastatin Calcium 80 MG TABLET PO (08:48)
[2022-12-29] MEDS: Cyanocobalamin (Vitamin B-12) 1,000 MCG TABLET 1000 MCG PO (08:48)
[2022-12-29] MEDS: Vitamin E (Dl,Tocopheryl Acet) 180 MG (400 UNIT) CAPSULE PO (08:48)
[2022-12-29] MEDS: Anastrozole 1 MG TABLET PO (08:48)
[2022-12-29] MEDS: Cholecalciferol (Vitamin D3) 25 MCG TABLET PO (08:48)
[2022-12-29] MEDS: SITagliptin Phosphate 25 MG TABLET PO (08:48)
[2022-12-29] MEDS: Aspirin Enteric Coated 81 MG TABLET.DR PO (08:48)
[2022-12-29] MEDS: 0.9 % Sodium Chloride Flush 3 ML SYRINGE IVFLUSH (08:51)
[2022-12-29 11:21] VITALS: BP 123/60; PULSE 71; RESP 20; TEMP 36.8; O2SAT 96
[2022-12-29 11:44] LABS: Glucose, Whole Blood 94 mg/dL (60-115)
[2022-12-29 12:34] VITALS: PULSE 74; PULSE 77; PULSE 81; O2SAT 90; O2SAT 91; O2SAT 95
--- NOTE | 2022-12-29 12:40 | P.DS_ITS ---
DS: Providers Provider Date of Service: 12/29/22 Date of admission: 12/24/22 12:04 Date of discharge: 12/29/22 Primary care physician: Ene Menon NP Consults: 12/24/22 12:04 Consult to Cardiology Routine Consulting [place] [facility] [facility] [place] [facility] Reason for consultation: New onset CHF, hx of CAD, CKD4 Consult to Nephrology Routine Consulting Provider: Buck Carbone Reason for consultation: New onset CHF, pt with CKD4 Attending physician on discharge: Jarod Rosario Discharging clinician: Myriam Morocho DS: Diagnosis Discharge Diagnosis (1) Acute on chronic congestive heart failure: Status: Acute (2) CKD (chronic kidney disease): Status: Acute DS: Summary Hospital Course Hospital Course: From H&P on day of admission Pt is a 87-year-old female with a PMH significant for CAD, DC and double bypass in 2019, CKD 4, HTN, hx of breast cancer, and mcu-ldgsdot-yxrtrdpil diabetes?who presents to the ED with?worsening shortness of breath x5 days.? Patient states that she began noticing dyspnea with exertion 5 days ago.? Has recently been soap and that she becomes short of breath with minimal exertion like walking across the room.? Patient endorses orthopnea and has been sleeping with 2 pillows behind her back.? Patient also has been experiencing swelling in her ankles at night.? Notes that her shortness of breath decreases when she is sitting upright.? Patient has an extensive cardiac history with an DC and double bypass surgery in 2019, but no prior diagnosis of CHF.? Patient states she has never experienced symptoms like this before.? Says she had an echocardiogram a few years ago at [facility] but is unclear exactly how long ago that was.? Has also experienced fatigue, and some light headedness and fogginess. Patient denies chest pain/pressure, palpitations.? No fever, chills, nausea, vomiting.? Denies changes to bowel or bladder habits.? No abdominal pain. In the ED patient was afebrile but slightly hypertensive at 158/79. Labs were significant for H&H of 8.9/29.1, initial troponin elevated at 42.1, BNP 814. Electrolytes unremarkable.? Hepatic function baseline.? UA negative for UTI.? CXR showed interstitial and pulmonary vascular prominence with mild patchy bilateral airspace opacities and small bilateral pleural effusions, new and suggestive of fluid overload. EKG demonstrated normal sinus rhythm without evidence ST elevations or depressions. Pt was treated with nitroglycerin patch. Pt will be admitted to the hospital for treatment and further evaluation of new onset CHF with IV diuretics. New onset diastolic CHF. Patient was started on gentle diuresis with IV lasix. diuresis gentle due to under lying renal disease. She was followed by Cardiology during hospitalization.she has gradually improved. respiratory symptoms improved and was able to be weaned off of supplemental oxygen at rest b ut did drop on ambulation. she was evaluated by respiratory and does require 3L supplemental oxygen with ambulation/activity on discharge. echo showed EF 65- 70% and grade 2 diastolic dysfunction, no evidence of regional wall motion abnormality. She has been transitioned to oral Lasix. Recommend outpatient follow-up with Cardiology. CKD stage 4 with metabolic acidosis creatinine has remained stable around 4 Nephrology following - no indication for hemodialysis with no sign and symptoms of uremia. continue sodium bicarbonate. Outpatient follow-up with Nephrology Elevated troponin troponin elevated but flat, no chest pain, EKG with no acute ST echocardiogram showed no wall motion abnormality, elevated troponin likely due to chronic kidney disease and CHF Anemia of chronic disease Patient's H&H 8.9/29.1, near baseline,? normal iron studies. Discussed with Nephrology, plan for epogen as outpatient. seen by physical therapy who recommended home PT services. she will be discharged home with PT and VNA services. Time Spent with Patient Time attestation: Total time managing care of this patient today ____ minutes. Discharge coordination time: Greater than 30 minutes Quality: Safe Use of Opioids Does Pt have an Active Cancer Diagnosis on the Problem List?: No Quality: Stroke Does the patient have a stroke diagnosis?: No Physical Exam Vital Signs: Vital Signs: Last Vital Signs Temp 98.2 F 12/29/22 11:21 Pulse 71 12/29/22 11:21 Resp 20 12/29/22 11:21 BP 123/60 12/29/22 11:21 Pulse Ox 96 12/29/22 11:21 O2 Del Method Room Air 12/29/22 11:21 O2 Flow Rate 1 12/29/22 07:40 Oxygen Flow Rate 6 12/24/22 08:26 BMI result Body Mass Index 28.1 Const: General: cooperative, comfortable, no acute distress, alert and awake Nutritional Appearance: average body habitus Orientation/consciousness: patient oriented x3 Resp: Effort & Inspection: normal respiratory effort, able to speak in complete sentences, no respiratory distress and no use of accessory muscles Cardio: Rate: regular rate Heart sounds: S1 normal heart sound present and S2 normal heart sound present GI: Inspection: No distended Palpation (GI): Soft to palpation and nontender Neuro: General: patient oriented x3, moves all extremities and CN's II-XI intact bilaterally Extrem: General: Yes no pedal edema DS: Data Data Completed and Pending Labs on day of discharge: Laboratory Results - last 24 hr 12/28/22 12/28/22 12/29/22 15:51 20:01 06:16 WBC 8.1 RBC 2.73 L Hgb 8.2 L Hct 25.8 L MCV 94.5 MCH 30.0 MCHC 31.8 RDW 15.1 Plt Count 192 MPV 10.0 Absolute Nucleated RBC 0.000 Nucleated RBC % (auto) 0.0 Sodium Potassium Chloride Carbon Dioxide Anion Gap BUN Creatinine Estim Creat Clear Calc Estimated GFR POC Glucose 136 H 134 H Random Glucose Calcium 12/29/22 12/29/22 12/29/22 06:16 07:40 11:36 WBC RBC Hgb Hct MCV MCH MCHC RDW Plt Count MPV Absolute Nucleated RBC Nucleated RBC % (auto) Sodium 141 Potassium 4.6 Chloride 108 Carbon Dioxide 20 L Anion Gap 18 BUN 70 H Creatinine 4.24 H* Estim Creat Clear Calc 9.9 Estimated GFR 10 POC Glucose 101 94 Random Glucose 104 Calcium 8.8 Discharge Plan Discharge Anticipated Discharge Date/Time: 12/29/22 12:53 Patient Disposition: Home Health Service Discharge Diagnosis: acute CHF CD4 Referrals: Mike MARTINEZ [Outside] - 3-5 Days (LONG-TERM AND HOME PT. A NURSE WILL CONTACT YOU FOR START OF CARE WITHIN 48HRS OF DISCHARGE. ) Ene Menon NP [Primary Care Provider] - 1 Week Juan Padron MD [Physician] - 1 Week Jaun Johnson MD [Physician] - 1 Week Discharge Medications: New furosemide 40 mg Tablet 80 mg PO DAILY 30 Days Qty: 60 0RF Protocol: Hold for SBP< HOLD for SBP < : 90 Continued anastrozole 1 mg Tablet 1 mg PO DAILY pantoprazole 40 mg Tablet,Delayed Release (Dr/Ec) 40 mg PO DAILY amlodipine 10 mg Tablet 10 mg PO DAILY ascorbic acid (vitamin C) 500 mg Capsule 1,000 mg PO DAILY atorvastatin 80 mg Tablet 80 mg PO DAILY 30 Days Qty: 30 0RF cyanocobalamin (vitamin B-12) 1,000 mcg Tablet 1,000 mcg PO DAILY aspirin 81 mg Tablet,Delayed Release (Dr/Ec) 81 mg PO DAILY calcium carbonate 600 mg calcium (1,500 mg) Tablet 600 mg PO DAILY sodium bicarbonate 650 mg tablet 650 mg PO DAILY vitamin E 400 unit Tablet 400 unit PO DAILY cholecalciferol (vitamin D3) [Vitamin D3] 25 mcg (1,000 unit) Capsule 25 mcg PO DAILY acetaminophen 325 mg Capsule 650 mg PO Q6H PRN (Reason: Fever Or Pain) metoprolol succinate 50 mg tablet extended release 24 hr 50 mg PO DAILY Januvia 25 mg tablet 25 mg PO DAILY Discharge Orders: Discharge Order (Routine); Ordered 12/29/22 Ordered By: Myriam Morocho Activity on Discharge: As tolerated Stand Alone Forms: Patient Portal Discharge page Care Plan Goals: CHF Health Concerns: acute CHF Plan of Treatment: for CHF - start taking 80 mg of lasix daily. monitor weight daily, if you gain more then 3 pounds in one day call PCP's office. you qualify for 3L of supplemental oxygen with ambulation/activity he will be discharged home with visiting nurses and home physical therapy call to schedule follow-up appointment with Cardiology, Nephrology Assessment: see discharge summary
--- NOTE | 2022-12-29 13:02 | W.MHC.F2F ---
Service Date Service Date: 12/29/22 Encounter Date of encounter: 12/29/22 Reasons for Services Signs and symptoms assessed: needs long term for new supplemental oxygen, new diagnosis of CHF, CHF education, medication management Reason for long term: medication management and teach disease management Reason for physical therapy: home safety and mobility and therapeutic exercises Overseeing Care: Ene Menon Homebound: Leaving the home is medically contraindicated at this time without the asist of a device and/or another person due th the listed conditions above and below. Reason homebound: weakness related to hospital stay Certification: Based on the above findings, I certify that this patient is confined to the home and needs intermittent long term care, physical therapy and/or speech therapy, or continues to need occupational therapy. The patient is under my care, and I have initiated the establishment of the plan of care. The patient will be followed by a physician who will periodically review the plan of care. Time Spent With Patient Time: Total time managing care of this patient today ____ minutes.
--- NOTE | 2022-12-29 14:17 | PM.PNNEP ---
Subjective Subjective Date of Service: 01/10/23 Interval history: seen and examined this morning follow up for CHF feeling better this am, no significant sob Physical Exam Vital Signs: Vital Signs: Last Vital Signs Temp 98.2 F 12/29/22 11:21 Pulse 71 12/29/22 11:21 Resp 20 12/29/22 11:21 BP 123/60 12/29/22 11:21 Pulse Ox 96 12/29/22 11:21 O2 Del Method Room Air 12/29/22 11:21 O2 Flow Rate 1 12/29/22 07:40 Oxygen Flow Rate 6 12/24/22 08:26 BMI result Body Mass Index 28.1 Const: Other: General awake alert x3, in no acute distress. Neck no JVD. CVS regular rate rhythm, Respiratory lungs bibasilar crackles,no respiratory distress, no wheeze, no rhonchi. Gastrointestinal abdomen soft, non tender, bowel sounds audible, no guarding , no rigidity. Extremities mild left lower extremity edema Neuro nonfocal, speech clear. Skin no rash psych appropriate affect Objective Data Labs 12/29/22 06:16 12/29/22 06:16 Labs: Laboratory Results - last 24 hr 12/28/22 12/28/22 12/29/22 15:51 20:01 06:16 WBC 8.1 RBC 2.73 L Hgb 8.2 L Hct 25.8 L MCV 94.5 MCH 30.0 MCHC 31.8 RDW 15.1 Plt Count 192 MPV 10.0 Absolute Nucleated RBC 0.000 Nucleated RBC % (auto) 0.0 Sodium Potassium Chloride Carbon Dioxide Anion Gap BUN Creatinine Estim Creat Clear Calc Estimated GFR POC Glucose 136 H 134 H Random Glucose Calcium 12/29/22 12/29/22 12/29/22 06:16 07:40 11:36 WBC RBC Hgb Hct MCV MCH MCHC RDW Plt Count MPV Absolute Nucleated RBC Nucleated RBC % (auto) Sodium 141 Potassium 4.6 Chloride 108 Carbon Dioxide 20 L Anion Gap 18 BUN 70 H Creatinine 4.24 H* Estim Creat Clear Calc 9.9 Estimated GFR 10 POC Glucose 101 94 Random Glucose 104 Calcium 8.8 Microbiology Microbiology Results: Microbiology 12/24/22 09:01 Blood - Venous Blood Culture - Final No growth after 5 days. 12/24/22 09:01 Blood - Venous Blood Culture - Final No growth after 5 days. Procedures Date of Service Date of Service: 01/10/23 Assessment & Plan Assessment and plan (1) CKD (chronic kidney disease): Status: Acute (2) Acute on chronic congestive heart failure: Status: Acute Plan Elderly woman with advanced CKD admitted with shortness of breath due to fluid overload. Paulette has history of renal artery stenosis. She is undergone angioplasty with stent placement. At present renal function is close to baseline. She has no overt signs or symptoms of uremia. Recommendation keep her on low-sodium diet. Keep output more than intake. Goal is to keep output more than input by 1-1.5 L every 24 hours. Continue to avoid nephrotoxic agents. Okay to discharge home with Lasix 80 mg. I will arrange for follow-up with Dr. Zimmer in outpatient setting Appreciate cardiology input No absolute indication for dialysis today. We will reassess in the next 24-48 hours. Anemia due to underlying CKD. Iron stores adequate. Epogen and optimize hemoglobin.- Mild hyperchloremic metabolic acidosis due to advanced CKD. Keep Sod Bicarb 650 mg QD Time Spent With Patient Time: Total time managing care of this patient today ____ minutes. Progress Note: Quality Stroke Does the patient have a stroke diagnosis?: No
== END 2022-12-29 17:22 | disposition home health service (06) | DRG 291 ==
LOC: HO.ED 10:19 → HO.EDOVER 12:13 → HO.IMC 18:19
PROVIDERS: Hospitalist; Internal Medicine; Admitting Provider Student in an Organized Health Care Education/Training Program; Emergency Provider Emergency Medicine; PCP Nurse Practitioner Family; Visit Provider Physician Assistant Medical
DX: I13.0 Hypertensive heart and chronic kidney disease with heart failure and stage 1 through stage 4 chronic kidney disease, or unspecified chronic kidney disease (principal); I50.33 Acute on chronic diastolic (congestive) heart failure; N18.4 Chronic kidney disease, stage 4 (severe); E87.22 Chronic metabolic acidosis; E11.51 Type 2 diabetes mellitus with diabetic peripheral angiopathy without gangrene; I25.10 Atherosclerotic heart disease of native coronary artery without angina pectoris; D63.1 Anemia in chronic kidney disease; C50.919 Malignant neoplasm of unspecified site of unspecified female breast; Z95.1 Presence of aortocoronary bypass graft; E11.22 Type 2 diabetes mellitus with diabetic chronic kidney disease; K21.9 Gastro-esophageal reflux disease without esophagitis; I25.2 Old myocardial infarction; I70.1 Atherosclerosis of renal artery; Z20.822 Contact with and (suspected) exposure to COVID-19; Z87.891 Personal history of nicotine dependence; Z79.82 Long term (current) use of aspirin; Z79.811 Long term (current) use of aromatase inhibitors; Z79.899 Other long term (current) drug therapy
CPT/HCPCS: 0241U; 36415; 71045; 80048; 80076; 81001; 82728; 82947; 83540; 83605; 83690; 83735; 83880; 84484; 85025; 85027; 87040; 93005; 93306; 97162; 99285; J0885; J1643; J1940; Q9957

== ENCOUNTER 2023-01-10 09:30 | Outpatient (AMB) | payer MEDICARE, SELFPAY ==
[2023-01-10 09:33] VITALS: BP 112/64; PULSE 75; O2SAT 95; BMI 24.7
--- NOTE | 2023-01-10 09:33 | MHC.OFFVIS ---
Intake Vital Signs 01/10/23 09:33 Height 5 ft 6 in Weight 153 lb 0.013 oz BMI 24.7 BP 112/64 Blood Pressure Location Lt brachial Position Sitting Pulse 75 Pulse Source Pulse Oximeter Pulse Oximetry (%) 95 Oxygen Delivery Method Room Air Intake Visit Reasons: [facility] [place] Hospital Follow up/CHF Intake Note: [facility] [place] follow up. Business Analytics Specialist Required: No Accompanied by: Daughter Allergies No Known Allergies [No Known Allergies*] Allergy (Verified 01/10/23 09:36) Medication List - Last Reconciled 01/10/23 by Juan Padron MD acetaminophen 650 mg PO Q6H PRN amlodipine 10 mg PO DAILY anastrozole 1 mg PO DAILY ascorbic acid (vitamin C) 1,000 mg PO DAILY aspirin 81 mg PO DAILY atorvastatin 80 mg PO DAILY 30 days calcium carbonate 600 mg PO DAILY cholecalciferol (vitamin D3) (Vitamin D3) 25 mcg PO DAILY cyanocobalamin (vitamin B-12) 1,000 mcg PO DAILY furosemide 80 mg See Protocol PO DAILY 30 days metoprolol succinate ER 50 mg PO DAILY pantoprazole 40 mg PO DAILY sitagliptin phosphate (Januvia) 25 mg PO DAILY sodium bicarbonate 650 mg PO DAILY vitamin E 400 units PO DAILY HPI HPI Comments History of Present Illness Details Pleasant 87 year female who is here for follow-up. She was previously following at [facility]. She had recent admission to [facility] ([facility] with congestive heart failure. She was diuresed and discharged home on Lasix 80 mg once a day. She has advanced kidney disease and previous bypass surgery. She is denying any chest discomfort or significant shortness of breath. No orthopnea or PND. No peripheral edema. She is doing great at this point. Taking medications regularly without any issues. [facility] Medical History (Updated 01/10/23 @ 09:39 by ALISSON Moreau) Bladder cancer Cellulitis CKD (chronic kidney disease) Coronary artery disease Diabetes Hypertension PAD (peripheral artery disease) Surgical History (Updated 01/10/23 @ 09:39 by ALISSON Moreau) Hx of cardiac catheterization (~05/2020) Hx of colonoscopy Hx of endoscopy Hx of mastectomy S/P AAA repair Family History Father Lung cancer Stomach ulcer Sister Colon cancer, Onset Age: 80 Breast cancer Heart disease HTN (hypertension) Mother Cirrhosis of liver Family/Other Stomach ulcer Social History (Updated 01/10/23 @ 09:38 by ALISSON Moreau) Household Members: Family and Children Housing: House Do you presently have visiting nurse or other home services: No Alcohol intake: never Patient Tobacco Use Status: Former Tobacco user Quit Date: 1989 Smoked: 40 +/- e-Cigarette/Vaping Use: Never Used Advance Directives Date on File: 09/27/21 service: No Current occupational status: retired Review of Systems Const Denies weakness ENT Denies dizziness Card Denies chest pain, Denies chest pain with activity, Denies syncope, Denies rapid heart rate, Denies pedal edema, Denies edema, Denies leg edema, Denies lightheadedness, Denies palpitations, Denies dyspnea, Denies dyspnea on exertion and Denies orthopnea Resp Denies cough, Denies dyspnea and Denies dyspnea on exertion GI Denies hematochezia and Denies change in stool character Musc Denies abnormal gait, Denies muscle cramps, Denies muscle weakness, Denies numbness, Denies radiating pain into limb and Denies tingling Neuro Denies abnormal gait, Denies dizziness, Denies syncope, Denies numbness, Denies tingling and Denies weakness Endo Denies palpitations Physical Exam Vital Signs: Last Vital Signs Pulse 75 01/10/23 09:33 BP 112/64 01/10/23 09:33 Pulse Ox 95 01/10/23 09:33 Oxygen Delivery Method Room Air 01/10/23 09:33 BMI result Body Mass Index 24.7 GENERAL APPEARANCE: in no acute distress, pleasant. NECK: no carotid bruit, no jugular venous distention. SKIN: Midline not been scar. HEART: no murmurs, regular rate and rhythm. LUNGS: clear to auscultation bilaterally. ABDOMEN: soft, nontender. EXTREMITIES: no edema. PERIPHERAL PULSES: equal. NEUROLOGIC: No gross deficits, AAO X 3 Assessment & Plan Assessment & Plan (1) Acute on chronic congestive heart failure: Code(s): I50.9 - Heart failure, unspecified (2) CKD (chronic kidney disease): Code(s): N18.9 - Chronic kidney disease, unspecified Plan Pleasant 87-year-old female who is here for follow-up. She has background of bypass surgery and was following at [facility] previously. She recently got admitted to [facility] with congestive heart failure. She had echocardiography which showed hyperdynamic LV with basal inferior wall motion abnormality. She was volume overloaded and was diuresed and discharged home on 80 mg p.o. Lasix once a day. She has stable angina currently and is stable from coronary disease point of view. She is on sodium bicarbonate as per Nephrology because she has advanced CKD. She is currently tolerating the sodium bicarbonate along with 80 mg Lasix. Overall stable and she should continue same medications at this stage. She will see us back in few months. Thank you for allowing me to participate in the care of your patient. Please feel free to contact me if you have any questions. Medications: New furosemide (Lasix) 80 mg PO DAILY 90 tabs 3RF Discontinued furosemide Discontinued Reason: None 80 mg See Protocol PO DAILY 30 days 60 tabs 0RF Coding Level of Care Code Est Pt Level 4 (46662) Diagnoses Acute on chronic congestive heart failure I50.9 CKD (chronic kidney disease) N18.9
== END 2023-01-10 10:03 | disposition home or self-care (01) ==
PROVIDERS: PCP Nurse Practitioner Family; Visit Provider Internal Medicine Cardiovascular Disease
DX: I50.9 Heart failure, unspecified (principal); N18.9 Chronic kidney disease, unspecified
CPT/HCPCS: 99214

== ENCOUNTER → 2023-01-10 09:30 | Outpatient (BNVA) | payer MEDICARE, SELFPAY | PROVIDERS: PCP Nurse Practitioner Family; Visit Provider Internal Medicine Cardiovascular Disease | DX: I50.9 Heart failure, unspecified (principal); N18.9 Chronic kidney disease, unspecified | CPT/HCPCS: 99212 ==

== ENCOUNTER 2023-01-20 11:43 | Outpatient (REF) | payer MEDICARE, SELFPAY ==
[2023-01-20 13:43] LABS: Anion Gap 14 (12-20); Blood Urea Nitrogen 72 mg/dL (9-16); Calcium 9.1 mg/dL (8.4-10.2); Carbon Dioxide 24 mmol/L (22-29); Chloride 106 mmol/L (96-108); Estimated Glomerular Filt Rate 9; Glucose Random 97 mg/dL (60-115); Potassium 5.1 mmol/L (3.3-5.1); Sodium 139 mmol/L (135-145)
== END 2023-01-20 11:44 | disposition home or self-care (01) ==
LOC: HO.HMGCLDS 11:43
PROVIDERS: PCP Nurse Practitioner Family; Visit Provider Nurse Practitioner Family
DX: N28.9 Disorder of kidney and ureter, unspecified (principal)
CPT/HCPCS: 36415; 80048

== ENCOUNTER 2023-02-19 07:40 | Outpatient (REF) | payer MEDICARE, SELFPAY ==
[2023-02-19 11:27] LABS: MANUAL DIFF FLAG NO
[2023-02-19 12:08] LABS: Basophils Absolute Auto 0.1 X10*3/uL (0.0-0.2); Basophils Percent Auto 1.1 % (0-2); Eosinophils Absolute Auto 0.4 X10*3/uL (0.0-0.4); Eosinophils Percent Auto 3.9 % (0-4); Hematocrit 25.8 % (37.0-47.0); Hemoglobin 7.7 g/dl (12.0-16.0); Imm Gran Abs Auto 0.08 X10*3/uL (0.00-0.03); Imm Gran Pct Auto 0.9 % (0.0-0.4); Lymphocytes Absolute Auto 1.6 X10*3/uL (1.2-4.9); Lymphocytes Percent Auto 17.2 % (20-40); Mean Corpuscular HGB Conc 29.8 g/dl (31.0-35.0); Mean Corpuscular Hemoglobin 28.7 pg (27.0-33.0); Mean Corpuscular Volume 96.3 fL (80.0-98.0); Mean Platelet Volume 10.3 fL (9.4-12.3); Monocytes Absolute Auto 1.2 X10*3/uL (0.1-1.2); Monocytes Percent Auto 13.5 % (2-11); Neutrophils Absolute Auto 5.8 x10*3/uL (2.0-8.3); Neutrophils Percent Auto 63.4 % (45-73); Platelet Count 242 X10*3/uL (160-400); Red Blood Count 2.68 X10*6/uL (4.20-5.50); Red Cell Distribution Width 14.2 % (11.0-16.0); White Blood Count 9.1 X10*3/uL (4.8-10.8)
[2023-02-19 12:26] LABS: Anion Gap 16 (12-20); Blood Urea Nitrogen 68 mg/dL (9-16); Calcium 8.9 mg/dL (8.4-10.2); Carbon Dioxide 22 mmol/L (22-29); Chloride 111 mmol/L (96-108); Glucose Random 103 mg/dL (60-115); Iron 44 mcg/dL (30-160); Percent Iron Saturation 15 % (15-50); Phosphorus 5.9 mg/dL (2.7-4.5); Potassium 4.7 mmol/L (3.3-5.1); Sodium 144 mmol/L (135-145); Total Iron Binding Capacity 298 mcg/dL (228-428); Unsaturated Iron Binding 254 ug/dL
[2023-02-19 12:30] LABS: Vitamin D 25-OH Total 40.5 ng/mL (>30)
[2023-02-19 13:49] LABS: Estimated Glomerular Filt Rate 8
[2023-02-20 14:13] LABS: Calcium (PTHI) 8.4 mg/dL (8.6-10.4); PTHI 329 pg/mL (16-77)
== END 2023-02-19 07:41 | disposition home or self-care (01) ==
LOC: HO.HMGCLDS 07:40
PROVIDERS: PCP Nurse Practitioner Family; Visit Provider Internal Medicine Nephrology
DX: D64.9 Anemia, unspecified (principal); I11.0 Hypertensive heart disease with heart failure; N18.4 Chronic kidney disease, stage 4 (severe)
CPT/HCPCS: 36415; 80048; 82306; 83540; 83970; 84100; 85025

== ENCOUNTER 2023-03-12 22:02 | Emergency (ER) | payer MEDICARE, SELFPAY ==
[2023-03-12 22:47] VITALS: BP 144/57; PULSE 60; RESP 18; TEMP 36.6; O2SAT 96; BMI 24.5
--- NOTE | 2023-03-12 23:36 | PC.NURSE ---
pt abdominal dressing changed by MD Garcia . observing site to see if bleeding continues.
--- NOTE | 2023-03-13 00:01 | ED_ITS ---
HPI - General Adult General Chief complaint: General Medical Stated complaint: catheter insertion bleeding Time Seen by Provider: 03/12/23 23:23 Source: patient and family Mode of arrival: ambulatory Limitations: no limitations History of Present Illness HPI narrative: Patient comes in the emergency room accompanied by her daughter. Earlier today, patient had an outpatient procedure done in [place] or patient got a peritoneal catheter inserted. Patient states that approximately 4 hours ago, patient started bleeding profusely from the side of the insertion of the catheter. Patient denies any pain. Patient is not on blood thinners, only baby aspirin Related Data Home Medications Medication Instructions Recorded Confirmed amlodipine 10 mg tablet 10 mg PO DAILY 09/26/21 01/10/23 anastrozole 1 mg tablet 1 mg PO DAILY 09/26/21 01/10/23 ascorbic acid (vitamin C) 500 mg 1,000 mg PO DAILY 09/26/21 01/10/23 capsule pantoprazole 40 mg tablet,delayed 40 mg PO DAILY 09/26/21 01/10/23 release sitagliptin phosphate 25 mg tablet 25 mg PO DAILY 12/08/21 01/10/23 (Januvia) acetaminophen 325 mg capsule 650 mg PO Q6H PRN Fever Or Pain 12/24/22 01/10/23 aspirin 81 mg tablet,delayed 81 mg PO DAILY 12/24/22 01/10/23 release calcium carbonate 600 mg calcium 600 mg PO DAILY 12/24/22 01/10/23 (1,500 mg) tablet cholecalciferol (vitamin D3) 25 25 mcg PO DAILY 12/24/22 01/10/23 mcg (1,000 unit) capsule (Vitamin D3) cyanocobalamin (vitamin B-12) 1,000 mcg PO DAILY 12/24/22 01/10/23 1,000 mcg tablet metoprolol succinate 50 mg 50 mg PO DAILY 12/24/22 01/10/23 tablet,extended release 24 hr sodium bicarbonate 650 mg tablet 650 mg PO DAILY 12/24/22 01/10/23 vitamin E 400 unit tablet 400 unit PO DAILY 12/24/22 01/10/23 Previous Rx's Medication Instructions Recorded atorvastatin 80 mg tablet 80 mg PO DAILY 30 days #30 tabs 10/06/21 furosemide 80 mg tablet (Lasix) 80 mg PO DAILY #90 tabs 01/10/23 Allergies Allergy/AdvReac Type Severity Reaction Status Date / Time No Known Allergies Allergy Verified 01/10/23 09:36 [No Known Allergies*] Review of Systems Review of Systems: Constitutional : No Weight loss, No Fever, No Chills, No Night Sweats, No Fatigue, No Malaise ENT/Mouth : No Hearing loss, No Ear Pain, No Nasal Congestion, No Sinus Pain, No Hoarseness, No sore throat, No Rhinorrhea, No Swallowing Difficulty Eyes: No Eye Pain, No Swelling, No Redness, No Foreign Body, No Discharge, No Vision Changes Cardiovascular : No Chest Pain, No SOB, No Dyspnea on Exertion, No Orthopnea, No Edema, No Palpitations Respiratory : No Cough, No Sputum, No Wheezing, No Smoke Exposure, No Dyspnea Gastrointestinal : No Nausea, No Vomiting, No Diarrhea, No Constipation, No abdominal Pain, No Hematochezia, No Melena Genitourinary : no irregular bleeding, No Dysuria, No Urinary Frequency, No Hematuria, No Urinary Incontinence, No Urgency, No Flank Pain, No Urinary Flow Changes, No Hesitancy Musculoskeletal : No joint pain, No Myalgias, No Joint Swelling Skin : Bleeding from the surgical site Neuro : No Weakness, No Numbness, No Paresthesias, No Loss of Consciousness, No Dizziness, No Headache Psych : No Anxiety/Panic, No Depression, No SI/HI/AH/VH, No Social Issues, Heme/Lymph: No Bruising, No Bleeding,No Lymphadenopathy Endocrine : No Polyuria, No Polydipsia, No Temperature Intolerance PMFSH Past Medical History Medical History Bladder cancer PAD (peripheral artery disease) Cellulitis CKD (chronic kidney disease) Coronary artery disease Hypertension Diabetes Surgical History Hx of mastectomy S/P AAA repair Hx of colonoscopy Hx of endoscopy Hx of cardiac catheterization (~05/2020) Family History Family History Father Lung cancer Stomach ulcer Sister Colon cancer, Onset Age: 80 Breast cancer Heart disease HTN (hypertension) Mother Cirrhosis of liver Family/Other Stomach ulcer Social History Social History (Updated 01/10/23 @ 09:38 by ALISSON Moreau) Household Members: Family and Children Housing: House Do you presently have visiting nurse or other home services: No Alcohol intake: never Patient Tobacco Use Status: Former Tobacco user Quit Date: 1989 Smoked: 40 +/- e-Cigarette/Vaping Use: Never Used Advance Directives: Yes Advance Directives on File: Yes Advance Directives Date on File: 09/27/21 service: No Current occupational status: retired Physical Exam ED Vital Signs: Vital Signs - 24 hr 03/12/23 22:47 Temperature 97.8 F Pulse Rate 60 Respiratory Rate 18 Blood Pressure 144/57 H Pulse Oximetry 96 Oxygen Delivery Method Nasal Cannula BMI result Body Mass Index 24.5 Const Other: Appearance: Alert. Oriented X3. No acute distress. Eyes: Pupils equal, round and reactive to light. ENT: Pharynx normal. Neck: Normal inspection. Neck supple. No lymph nodes noted. No crepitus CVS: Normal heart rate and rhythm. Pulses normal. Normal S1 and S2 Respiratory: No respiratory distress. Breath sounds normal. No Wheezing. No rales Abdomen: Soft and nontender. No rigidity. No distention. Skin: Skin warm and dry. Minor bleed around the site of insertion of the peritoneal dialysis catheter in the abdomen Extremities: No lower extremity edema. No Lacerations. No Rash Neuro: Oriented X 3. No motor deficit. No sensory deficit. Moving all extrem ities. No slurred speech. CN 2 through 12 grossly intact Psych: calm, cooperative, normal affect Course Course Course Narrative: -bleeding is mild to moderate. Bleeding was stopped with Surgicel and pressure -discussed with the patient that if we would restart 3 bleeding, to apply pressure. If it is perfuse bleeding, she needs to return to the emergency room, patient may need a stitch. Otherwise, she needs to follow up with her surgeon today in the morning. Discharge Plan Discharge Clinical Impression: Hemorrhage from dialysis catheter Patient Disposition: Home, Self-Care Additional Instructions: Please follow-up with your primary care physician tomorrow. If you have any worsening or new symptoms, please return to the emergency room or call 911 Prescriptions: No Action anastrozole 1 mg Tablet 1 mg PO DAILY pantoprazole 40 mg Tablet,Delayed Release (Dr/Ec) 40 mg PO DAILY amlodipine 10 mg Tablet 10 mg PO DAILY ascorbic acid (vitamin C) 500 mg Capsule 1,000 mg PO DAILY atorvastatin 80 mg Tablet 80 mg PO DAILY 30 Days Qty: 30 0RF cyanocobalamin (vitamin B-12) 1,000 mcg Tablet 1,000 mcg PO DAILY aspirin 81 mg Tablet,Delayed Release (Dr/Ec) 81 mg PO DAILY calcium carbonate 600 mg calcium (1,500 mg) Tablet 600 mg PO DAILY sodium bicarbonate 650 mg tablet 650 mg PO DAILY vitamin E 400 unit Tablet 400 unit PO DAILY cholecalciferol (vitamin D3) [Vitamin D3] 25 mcg (1,000 unit) Capsule 25 mcg PO DAILY acetaminophen 325 mg Capsule 650 mg PO Q6H PRN (Reason: Fever Or Pain) metoprolol succinate 50 mg tablet extended release 24 hr 50 mg PO DAILY Januvia 25 mg tablet 25 mg PO DAILY furosemide [Lasix] 80 mg tablet 80 mg PO DAILY Qty: 90 3RF
== END 2023-03-13 00:52 | disposition home or self-care (01) ==
PROVIDERS: Emergency Provider Emergency Medicine; PCP Nurse Practitioner Family
DX: L76.22 Postprocedural hemorrhage of skin and subcutaneous tissue following other procedure (principal); Z79.899 Other long term (current) drug therapy; Z87.891 Personal history of nicotine dependence
CPT/HCPCS: 99282

== ENCOUNTER 2023-04-25 09:55 | Outpatient (AMB) | payer MEDICARE, SELFPAY ==
[2023-04-25 10:08] VITALS: BP 142/90; PULSE 96; BMI 25.7
--- NOTE | 2023-04-25 10:08 | MHC.OFFVIS ---
Intake Vital Signs 04/25/23 10:08 Height 5 ft 6 in Weight 159 lb 2.78 oz BMI 25.7 BP 142/90 H Blood Pressure Location Lt brachial Position Sitting Pulse 96 Intake Visit Reasons: 3 mth f/up Intake Note: 3 month follow up Monotype Setter Required: No Accompanied by: Self / Same As Patient Allergies No Known Allergies [No Known Allergies*] Allergy (Verified 04/25/23 10:12) Medication List - Last Reconciled 04/25/23 by Juan Padron MD acetaminophen 650 mg PO Q6H PRN anastrozole 1 mg PO DAILY ascorbic acid (vitamin C) 1,000 mg PO DAILY aspirin 81 mg PO DAILY atorvastatin 80 mg PO DAILY 30 days calcium carbonate 600 mg PO DAILY cholecalciferol (vitamin D3) (Vitamin D3) 25 mcg PO DAILY cyanocobalamin (vitamin B-12) 1,000 mcg PO DAILY furosemide (Lasix) 120 mg PO DAILY metoprolol succinate ER 50 mg PO DAILY pantoprazole 40 mg PO DAILY sitagliptin phosphate (Januvia) 25 mg PO DAILY sodium bicarbonate 650 mg PO DAILY vitamin E 400 units PO DAILY HPI HPI Comments History of Present Illness Details Pleasant 87 year female who is here for follow-up. She was previously following at [facility]. She had recent admission to [facility] with congestive heart failure. She was diuresed and discharged home on Lasix 80 mg once a day. She has advanced kidney disease and previous bypass surgery. She is denying any chest discomfort or significant shortness of breath. No orthopnea or PND. No peripheral edema. She is doing great at this point. Taking medications regularly without any issues. 04/25/23: She is here for f/u. She has started peritoneal dialysis since she saw us last time. She is seeing Dr Hope. She had her amlodipine stopped by Dr Hope. She said the next day or so, she had fatigue and she was slurring her speech. These symptoms improved. She did not go to ER. She is saying her PD days were decreased from 7 days to 5 days. She has increased her oxyegn recently. She is anemic and is getting iron infusions. [facility] Medical History Bladder cancer PAD (peripheral artery disease) Cellulitis CKD (chronic kidney disease) Coronary artery disease Hypertension Diabetes Surgical History Hx of mastectomy S/P AAA repair Hx of colonoscopy Hx of endoscopy Hx of cardiac catheterization (~05/2020) Family History Father Lung cancer Stomach ulcer Sister Colon cancer, Onset Age: 80 Breast cancer Heart disease HTN (hypertension) Mother Cirrhosis of liver Family/Other Stomach ulcer Social History Household Members: Family and Children Housing: House Do you presently have visiting nurse or other home services: No Alcohol intake: never Patient Tobacco Use Status: Former Tobacco user Quit Date: 1989 Smoked: 40 +/- e-Cigarette/Vaping Use: Never Used Advance Directives Date on File: 09/27/21 service: No Current occupational status: retired Review of Systems Const Denies weakness ENT Denies dizziness Card Denies chest pain, Denies chest pain with activity, Denies syncope, Denies rapid heart rate, Denies pedal edema, Denies edema, Denies leg edema, Denies lightheadedness, Denies palpitations, Denies dyspnea, Denies dyspnea on exertion and Denies orthopnea Resp Denies cough, Denies dyspnea and Denies dyspnea on exertion GI Denies hematochezia and Denies change in stool character Musc Denies abnormal gait, Denies muscle cramps, Denies muscle weakness, Denies numbness, Denies radiating pain into limb and Denies tingling Neuro Denies abnormal gait, Denies dizziness, Denies syncope, Denies numbness, Denies tingling and Denies weakness Endo Denies palpitations Physical Exam Vital Signs: Last Vital Signs Pulse 96 04/25/23 10:08 BP 142/90 H 04/25/23 10:08 BMI result Body Mass Index 25.7 GENERAL APPEARANCE: pale. pleasant. NECK: systolic murmur radiating to carotid, no jugular venous distention. + HJR. SKIN: Midline sternotomy scar. HEART: ESM aortic area with preserved 2nd heart sound, regular rate and rhythm. LUNGS: clear to auscultation bilaterally. ABDOMEN: soft, nontender. EXTREMITIES: no edema. PERIPHERAL PULSES: equal. NEUROLOGIC: No gross deficits, AAO X 3 Assessment & Plan Assessment & Plan (1) ESRD (end stage renal disease): Code(s): N18.6 - End stage renal disease (2) Chronic diastolic heart failure: Code(s): I50.32 - Chronic diastolic (congestive) heart failure (3) TIA (transient ischemic attack): Code(s): G45.9 - Transient cerebral ischemic attack, unspecified Plan 87-year-old female here for f/u. She has h/o CABG and is stable from CAD viewpoint. Most issues are due to ESRD at this stage. She is anemic and is getting iron infusions. BP mildly elevated and I have advised her to follow with renal and would let renal adjust medications. Given her episode of slurred speech, changing ASA to Plavix. Her meds were adjusted for low BP which can be a cause for symptoms too. Would check the US duplex carotids. f/u in few months. Orders: Orders US carotid duplex BI Today G45.9 - Transient cerebral ischemic attack, unspecified Medications: New clopidogrel 75 mg PO DAILY 90 tabs 3RF G45.9 - Transient cerebral ischemic attack, unspecified Changed From furosemide (Lasix) 80 mg PO DAILY 90 tabs 3RF To furosemide (Lasix) 120 mg PO DAILY Coding Level of Care Code Est Pt Level 4 (25558) Diagnoses ESRD (end stage renal disease) N18.6 Chronic diastolic heart failure I50.32 TIA (transient ischemic attack) G45.9
== END 2023-04-25 11:04 | disposition home or self-care (01) ==
PROVIDERS: PCP Nurse Practitioner Family; Visit Provider Internal Medicine Cardiovascular Disease
DX: N18.6 End stage renal disease (principal); I50.32 Chronic diastolic (congestive) heart failure; G45.9 Transient cerebral ischemic attack, unspecified
CPT/HCPCS: 99214

== ENCOUNTER → 2023-04-25 09:55 | Outpatient (BNVA) | payer MEDICARE, SELFPAY | PROVIDERS: PCP Nurse Practitioner Family; Visit Provider Internal Medicine Cardiovascular Disease | DX: I13.2 Hypertensive heart and chronic kidney disease with heart failure and with stage 5 chronic kidney disease, or end stage renal disease (principal); N18.6 End stage renal disease; I50.32 Chronic diastolic (congestive) heart failure; G45.9 Transient cerebral ischemic attack, unspecified | CPT/HCPCS: 99212 ==

== ENCOUNTER 2023-05-01 15:30 | Outpatient (REF) | payer MEDICARE, SELFPAY ==
--- NOTE | ~2023-05-01 | US_ITS ---
EXAMINATION: US EXTRACRANIAL CAROTID DUPLEX, BILATERAL CLINICAL INFORMATION: TIA. COMPARISON: 07/05/2007 - report only. TECHNIQUE: Real-time ultrasound and Doppler techniques (integrating B-mode 2-D vascular images, Doppler spectral analysis and color-flow Doppler imaging) were utilized to interrogate the extracranial carotid arteries, the vertebral arteries and proximal subclavian arteries bilaterally. The degree of stenosis is determined by criteria similar to NASCET. FINDINGS: RIGHT SIDE: 1. There is severe atherosclerotic plaque seen in the bifurcation/proximal ICA region. 2. The common carotid artery PSV proximally is 85 cm/s and distally 38 cm/s. 3. The proximal internal carotid artery velocities are 130 cm/s systolic and 26 cm/s diastolic. 4. The proximal external carotid artery PSV is 147 cm/s. 5. The vertebral artery shows antegrade flow. 6. The subclavian artery waveforms are normal. LEFT SIDE: 1. There is severe atherosclerotic plaque seen in the bifurcation/proximal ICA region. 2. The common carotid artery PSV proximally is 136 cm/s and distally 86 cm/s. 3. The proximal internal carotid artery velocities are 154 cm/s systolic and 30 cm/s diastolic. 4. The proximal external carotid artery PSV is 20 cm/s. 5. The vertebral artery shows antegrade turbulent flow with plaque. 6. The subclavian artery waveforms are normal. US/US carotid duplex BI IMPRESSION: 1. Compared to the 2007 study there has been progression of disease with increase in plaque and velocities seen in both internal carotid arteries. 2. RIGHT: Moderate, hemodynamically significant stenosis of the proximal right internal carotid artery corresponding to a 50-79% stenosis by velocity criteria. 3. LEFT: Moderate, hemodynamically significant stenosis of the proximal left internal carotid artery corresponding to a 50-79% stenosis by velocity criteria. 4. There is turbulent flow in the left vertebral artery with plaque consistent with stenotic disease.
== END 2023-05-01 15:31 | disposition home or self-care (01) ==
LOC: HO.HMGCX 15:30
PROVIDERS: PCP Nurse Practitioner Family; Visit Provider Internal Medicine Cardiovascular Disease
DX: G45.9 Transient cerebral ischemic attack, unspecified (principal)
CPT/HCPCS: 93880

== ENCOUNTER 2023-07-18 11:08 | Outpatient (AMB) | payer MEDICARE, SELFPAY ==
[2023-07-18 11:12] VITALS: BP 140/60; PULSE 76; BMI 25.7
--- NOTE | 2023-07-18 11:12 | A.OFFVIS_ITS ---
Intake Vital Signs 07/18/23 11:12 Height 5 ft 6 in Weight 159 lb 2.78 oz BMI 25.7 BP 140/60 H Blood Pressure Location Lt brachial Position Sitting Pulse 76 Pulse Source Pulse Oximeter Intake Visit Reasons: 3 month follow up Intake Note: 3 mnth pt its feeling fine. Ticket Worker Required: No Accompanied by: Self / Same As Patient Allergies No Known Allergies [No Known Allergies*] Allergy (Verified 04/25/23 10:12) Medication List - Last Reconciled 07/18/23 by Juan Padron MD acetaminophen 650 mg PO Q6H PRN ascorbic acid (vitamin C) 1,000 mg PO DAILY atorvastatin 80 mg PO DAILY 30 days calcium carbonate 600 mg PO DAILY cholecalciferol (vitamin D3) (Vitamin D3) 25 mcg PO DAILY clopidogrel 75 mg PO DAILY cyanocobalamin (vitamin B-12) 1,000 mcg PO DAILY furosemide (Lasix) 120 mg (1.5 x 80 mg) PO DAILY 90 days metoprolol succinate ER 50 mg PO DAILY pantoprazole 40 mg PO DAILY sitagliptin phosphate (Januvia) 25 mg PO DAILY vitamin E 400 units PO DAILY HPI HPI Comments History of Present Illness Details Pleasant 87 year female who is here for follow-up. She was previously following at [facility]. She had recent admission to [facility] with congestive heart failure. She was diuresed and discharged home on Lasix 80 mg once a day. She has advanced kidney disease and previous bypass surgery. She is denying any chest discomfort or significant shortness of breath. No orthopnea or PND. No peripheral edema. She is doing great at this point. Taking medications regularly without any issues. 04/25/23: She is here for f/u. She has s tarted peritoneal dialysis since she saw us last time. She is seeing Dr Hope. She had her amlodipine stopped by Dr Hope. She said the next day or so, she had fatigue and she was slurring her speech. These symptoms improved. She did not go to ER. She is saying her PD days were decreased from 7 days to 5 days. She has increased her oxyegn recently. She is anemic and is getting iron infusions. 07/18/2023: She returns for follow-up. S he has been doing well. No chest pain or shortness of breath. She is doing peritoneal dialysis at this point. She is saying she is doing very well and has been off oxygen at this point. No shortness of breath. Walking with a walker. On Plavix monotherapy at this point without any bleeding concerns. [facility] Medical History (Updated 04/25/23 @ 10:53 by Juan Padron MD) Bladder cancer PAD (peripheral artery disease) Cellulitis CKD (chronic kidney disease) Coronary artery disease Hypertension Diabetes Surgical History Hx of mastectomy S/P AAA repair Hx of colonoscopy Hx of endoscopy Hx of cardiac catheterization (~05/2020) Family History Father Lung cancer Stomach ulcer Sister Colon cancer, Onset Age: 80 Breast cancer Heart disease HTN (hypertension) Mother Cirrhosis of liver Family/Other Stomach ulcer Social History Household Members: Family and Children Housing: House Do you presently have visiting nurse or other home services: No Alcohol intake: never Patient Tobacco Use Status: Former Tobacco user Quit Date: 1989 Smoked: 40 +/- e-Cigarette/Vaping Use: Never Used Advance Directives Date on File: 09/27/21 service: No Current occupational status: retired Review of Systems Const Reports chills, Reports fatigue, Reports fever(s), Reports frequent falls, Reports weakness, Reports weight gain and Reports weight loss ENT Reports dizziness Card Reports chest pain, Reports leg edema, Reports lightheadedness, Reports palpitations, Reports dyspnea and Reports dyspnea on exertion Resp Reports cough, Reports dyspnea and Reports dyspnea on exertion GI Reports hematochezia Musc Reports abnormal gait, Reports muscle weakness, Reports numbness, Reports radiating pain into limb and Reports tingling Neuro Reports abnormal gait, Reports dizziness, Reports frequent falls, Reports numbness, Reports tingling and Reports weakness Endo Reports fatigue and Reports palpitations Physical Exam Vital Signs: Last Vital Signs Pulse 76 07/18/23 11:12 BP 140/60 H 07/18/23 11:12 BMI result Body Mass Index 25.7 GENERAL APPEARANCE: pale. pleasant. NECK: systolic murmur radiating to carotid, no jugular venous distention. + HJR. SKIN: Midline sternotomy scar. HEART: ESM aortic area with preserved 2nd heart sound, regular rate and rhythm. LUNGS: clear to auscultation bilaterally. ABDOMEN: soft, nontender. EXTREMITIES: no edema. PERIPHERAL PULSES: equal. NEUROLOGIC: No gross deficits, AAO X 3 Assessment & Plan Assessment & Plan (1) Chronic diastolic heart failure: Code(s): I50.32 - Chronic diastolic (congestive) heart failure (2) ESRD (end stage renal disease): Code(s): N18.6 - End stage renal disease Plan Pleasant 88-year-old female with known coronary artery disease who has stable angina and diastolic heart failure. Clinically stable at this point. She is doing peritoneal dialysis. She is using Lasix 120 mg daily. She is going to follow-up with Dr. Harp as Dr. Hope has retired. From cardiovascular point of view, she has been stable. No changes in medications currently recommended. Thank you for allowing me to participate in the care of your patient. Please feel free to contact me if you have any questions. Medications: Refilled furosemide (Lasix) 120 mg (1.5 x 80 mg) PO DAILY 90 days 180 tabs 3RF Coding Level of Care Code Est Pt Level 3 (84742) Diagnoses Chronic diastolic heart failure I50.32 ESRD (end stage renal disease) N18.6
== END 2023-07-18 11:48 | disposition home or self-care (01) ==
PROVIDERS: PCP Nurse Practitioner Family; Visit Provider Internal Medicine Cardiovascular Disease
DX: I50.32 Chronic diastolic (congestive) heart failure (principal); N18.6 End stage renal disease
CPT/HCPCS: 99213

== ENCOUNTER → 2023-07-18 11:08 | Outpatient (BNVA) | payer MEDICARE, SELFPAY | PROVIDERS: PCP Nurse Practitioner Family; Visit Provider Internal Medicine Cardiovascular Disease | DX: I50.32 Chronic diastolic (congestive) heart failure (principal); N18.6 End stage renal disease; Z79.899 Other long term (current) drug therapy | CPT/HCPCS: 99212 ==

== ENCOUNTER 2023-12-05 13:44 | Outpatient (AMB) | payer MEDICARE, SELFPAY ==
[2023-12-05 13:49] VITALS: BP 130/62; PULSE 71; BMI 26.3
--- NOTE | 2023-12-05 13:49 | MHC.OFFVIS ---
Vital Signs 12/05/23 13:49 Height 5 ft 6 in Weight 163 lb 2.273 oz BMI 26.3 BP 130/62 Blood Pressure Location Lt brachial Position Sitting Pulse 71 Intake Visit Reasons: 4 mth f/up Rn Progressive Care Unit Required: No Accompanied by: Self / Same As Patient Allergies No Known Allergies [No Known Allergies*] Allergy (Verified 04/25/23 10:12) Medication List - Last Reconciled 12/05/23 by Juan Padron MD acetaminophen 650 mg PO Q6H PRN ascorbic acid (vitamin C) 1,000 mg PO DAILY atorvastatin 80 mg PO DAILY 30 days calcium carbonate 600 mg PO DAILY cholecalciferol (vitamin D3) (Vitamin D3) 25 mcg PO DAILY clopidogrel 75 mg PO DAILY cyanocobalamin (vitamin B-12) 1,000 mcg PO DAILY furosemide (Lasix) 120 mg (1.5 x 80 mg) PO DAILY 90 days metoprolol succinate ER 50 mg PO DAILY pantoprazole 40 mg PO DAILY sitagliptin phosphate (Januvia) 25 mg PO DAILY vitamin E 400 units PO DAILY HPI Comments Details: Pleasant 88 year female who is here for follow-up. She was previously following at [facility]. She had recent admission to [facility] (formerly [facility]) with congestive heart failure. She was diuresed and discharged home on Lasix 80 mg once a day. She has advanced kidney disease and previous bypass surgery. She is denying any chest discomfort or significant shortness of breath. No orthopnea or PND. No peripheral edema. She is doing great at this point. Taking medications regularly without any issues. 04/25/23: She is here for f/u. She has started peritoneal dialysis since she saw us last time. She is seeing Dr Hope. She had her amlodipine stopped by Dr Hope. She said the next day or so, she had fatigue and she was slurring her speech. These symptoms improved. She did not go to ER. She is saying her PD days were decreased from 7 days to 5 days. She has increased her oxyegn recently. She is anemic and is getting iron infusions. 07/18/2023: She returns for follow-up. She has been doing well. No chest pain or shortness of breath. She is doing peritoneal dialysis at this point. She is saying she is doing very well and has been off oxygen at this point. No shortness of breath. Walking with a walker. On Plavix monotherapy at this point without any bleeding concerns. 12/05/2023: She returns for follow-up. No chest pain or shortness of breath. She is doing peritoneal dialysis and has been doing well with this strategy. Her blood pressure readings at home were elevated. She said she was previously on amlodipine but apparently it was stopped In the past. No other concerns. No bleeding issues. [facility] Medical History (Updated 12/05/23 @ 14:21 by Juan Padron MD) Bladder cancer PAD (peripheral artery disease) Cellulitis CKD (chronic kidney disease) Coronary artery disease Hypertension Diabetes Surgical History Hx of mastectomy S/P AAA repair Hx of colonoscopy Hx of endoscopy Hx of cardiac catheterization (~05/2020) Family History Father Lung cancer Stomach ulcer Sister Colon cancer, Onset Age: 80 Breast cancer Heart disease HTN (hypertension) Mother Cirrhosis of liver Family/Other Stomach ulcer Social History Household Members: Family and Children Housing: House Do you presently have visiting nurse or other home services: No Alcohol intake: never Patient Tobacco Use Status: Former Tobacco user Years Smoked: 40 +/- e-Cigarette/Vaping Use: Never Used Advance Directives Date on File: 09/27/21 service: No Current occupational status: retired Review of Systems Const Denies chills, Denies fatigue, Denies fever(s), Denies frequent falls, Denies weakness, Denies weight gain and Denies weight loss ENT Denies dizziness Card Denies chest pain, Denies leg edema, Denies lightheadedness, Denies palpitations, Denies dyspnea and Denies dyspnea on exertion Resp Denies cough, Denies dyspnea and Denies dyspnea on exertion GI Denies hematochezia Musc Denies abnormal gait, Denies muscle weakness, Denies numbness, Denies radiating pain into limb and Denies tingling Neuro Denies abnormal gait, Denies dizziness, Denies frequent falls, Denies numbness, Denies tingling and Denies weakness Endo Denies fatigue and Denies palpitations Physical Exam Vital Signs: Last Vital Signs Pulse 71 12/05/23 13:49 BP 130/62 12/05/23 13:49 BMI result Body Mass Index 26.3 GENERAL APPEARANCE: pale. pleasant. NECK: systolic murmur radiating to carotid, no jugular venous distention. + HJR. SKIN: Midline sternotomy scar. HEART: ESM aortic area with preserved 2nd heart sound, regular rate and rhythm. LUNGS: clear to auscultation bilaterally. ABDOMEN: soft, nontender. EXTREMITIES: no edema. PERIPHERAL PULSES: equal. NEUROLOGIC: No gross deficits, AAO X 3 Office Procedures EKG Details: Sinus rhythm 71 beats per minute, normal axis, left ventricular hypertrophy, QTC 467 milliseconds. 19809-[id number], Complete Assessment & Plan Assessment & Plan (1) TIA (transient ischemic attack): Code(s): G45.9 - Transient cerebral ischemic attack, unspecified Category: Medical (2) Chronic diastolic heart failure: Code(s): I50.32 - Chronic diastolic (congestive) heart failure Category: Medical (3) Hypertension: Code(s): I10 - Essential (primary) hypertension Category: Medical Plan Pleasant 88-year-old female who is here for follow-up. She is background history of chronic diastolic heart failure, coronary artery bypass surgery, hypertension and transient ischemic attack. Clinically she is stable on follow-up. She has advanced CKD and is currently on peritoneal dialysis. Denying any anginal symptoms. Blood pressure is elevated and I am adding amlodipine 2.5 mg once a day. Thank you for allowing me to participate in the care of your patient. Please feel free to contact me if you have any questions. Medications: New amlodipine 2.5 mg PO DAILY 60 tabs 3RF Coding Level of Care Code Est Pt Level 4 (06588) Diagnoses TIA (transient ischemic attack) G45.9 Chronic diastolic heart failure I50.32 Hypertension I10 CPT Codes EKG - CPT: 63483-Dfruqypnoyerxbtne, Complete ([id number])
== END 2023-12-05 14:24 | disposition home or self-care (01) ==
PROVIDERS: PCP Nurse Practitioner Family; Visit Provider Internal Medicine Cardiovascular Disease
DX: G45.9 Transient cerebral ischemic attack, unspecified (principal); I50.32 Chronic diastolic (congestive) heart failure; I10 Essential (primary) hypertension
CPT/HCPCS: 93010; 99214

== ENCOUNTER → 2023-12-05 13:44 | Outpatient (BNVA) | payer MEDICARE, SELFPAY | PROVIDERS: PCP Nurse Practitioner Family; Visit Provider Internal Medicine Cardiovascular Disease | DX: G45.9 Transient cerebral ischemic attack, unspecified (principal); I11.0 Hypertensive heart disease with heart failure; I50.32 Chronic diastolic (congestive) heart failure; Z95.1 Presence of aortocoronary bypass graft | CPT/HCPCS: 93005; 99212 ==

== ENCOUNTER 2024-04-09 14:08 | Outpatient (AMB) | payer MEDICARE, SELFPAY ==
[2024-04-09 14:10] VITALS: BP 120/70; PULSE 68; BMI 26.3
--- NOTE | 2024-04-09 14:10 | A.OFFVIS_ITS ---
Vital Signs 04/09/24 14:10 Height 5 ft 6 in Weight 163 lb 2.273 oz BMI 26.3 BP 120/70 Blood Pressure Location Lt brachial Position Sitting Pulse 68 Pulse Source Pulse Oximeter Intake Visit Reasons: 4 month follow-up Intake Note: 4 mth f/up Digital Project Coordinator Required: No Accompanied by: Self / Same As Patient Allergies No Known Allergies [No Known Allergies*] Allergy (Verified 04/25/23 10:12) Medication List - Last Reconciled 04/09/24 by Juan Padron MD acetaminophen 650 mg PO Q6H PRN amlodipine 2.5 mg PO DAILY ascorbic acid (vitamin C) 1,000 mg PO DAILY atorvastatin 80 mg PO DAILY 30 days calcium carbonate 600 mg PO DAILY cholecalciferol (vitamin D3) (Vitamin D3) 25 mcg PO DAILY clopidogrel 75 mg PO DAILY cyanocobalamin (vitamin B-12) 1,000 mcg PO DAILY furosemide (Lasix) 120 mg (1.5 x 80 mg) PO DAILY 90 days metoprolol succinate ER 50 mg PO DAILY pantoprazole 40 mg PO DAILY sitagliptin phosphate (Januvia) 25 mg PO DAILY vitamin E 400 units PO DAILY HPI Comments Details: Pleasant 88 year female who is here for follow-up. She was previously following at [facility]. She had recent admission to [facility] with congestive heart failure. She was diuresed and discharged home on Lasix 80 mg once a day. She has advanced kidney disease and previous bypass surgery. She is denying any chest discomfort or significant shortness of breath. No orthopnea or PND. No peripheral edema. She is doing great at this point. Taking medications regularly without any issues. 04/25/23: She is here for f/u. She has started peritoneal dialysis since she saw us last time. She is seeing Dr Hope. She had her amlodipine stopped by Dr Hope. She said the next day or so, she had fatigue and she was slurring her speech. These symptoms improved. She did not go to ER. She is saying her PD days were decreased from 7 days to 5 days. She has increased her oxyegn recently. She is anemic and is getting iron infusions. 07/18/2023: She returns for follow-up. She has been doing well. No chest pain or shortness of breath. She is doing peritoneal dialysis at this point. She is saying she is doing very well and has been off oxygen at this point. No shortness of breath. Walking with a walker. On Plavix monotherapy at this point without any bleeding concerns. 12/05/2023: She returns for follow-up. No chest pain or shortness of breath. She is doing peritoneal dialysis and has been doing well with this strategy. Her blood pressure readings at home were elevated. She said she was previously on amlodipine but apparently it was stopped In the past. No other concerns. No bleeding issues. 04/09/2024: She is here for follow-up. She is doing well. No chest pain or shortness of breath. Blood pressure is well controlled. She is doing peritoneal dialysis as before. [facility] Medical History (Updated 12/05/23 @ 14:21 by Juan Padron MD) Bladder cancer PAD (peripheral artery disease) Cellulitis CKD (chronic kidney disease) Coronary artery disease Hypertension Diabetes Surgical History Hx of mastectomy S/P AAA repair Hx of colonoscopy Hx of endoscopy Hx of cardiac catheterization (~05/2020) Family History Father Lung cancer Stomach ulcer Sister Colon cancer, Onset Age: 80 Breast cancer Heart disease HTN (hypertension) Mother Cirrhosis of liver Family/Other Stomach ulcer Social History Household Members: Family and Children Housing: House Do you presently have visiting nurse or other home services: No Alcohol intake: never Patient Tobacco Use Status: Former Tobacco user Years Smoked: 40 +/- e-Cigarette/Vaping Use: Never Used Advance Directives Date on File: 09/27/21 service: No Current occupational status: retired Review of Systems Const Denies chills, Denies fatigue, Denies fever(s), Denies frequent falls, Denies weakness, Denies weight gain and Denies weight loss ENT Denies dizziness Card Denies chest pain, Denies leg edema, Denies lightheadedness, Denies palpitations, Denies dyspnea and Denies dyspnea on exertion Resp Denies cough, Denies dyspnea and Denies dyspnea on exertion GI Denies hematochezia Musc Denies abnormal gait, Denies muscle weakness, Denies numbness, Denies radiating pain into limb and Denies tingling Neuro Denies abnormal gait, Denies dizziness, Denies frequent falls, Denies numbness, Denies tingling and Denies weakness Endo Denies fatigue and Denies palpitations Physical Exam Vital Signs: Last Vital Signs Pulse 68 04/09/24 14:10 BP 120/70 04/09/24 14:10 BMI result Body Mass Index 26.3 GENERAL APPEARANCE: pale. pleasant. NECK: systolic murmur radiating to carotid, no jugular venous distention. SKIN: Midline sternotomy scar. HEART: ESM aortic area with preserved 2nd heart sound, regular rate and rhythm. LUNGS: clear to auscultation bilaterally. ABDOMEN: soft, nontender. EXTREMITIES: no edema. PERIPHERAL PULSES: equal. NEUROLOGIC: No gross deficits, AAO X 3 Assessment & Plan Assessment & Plan (1) TIA (transient ischemic attack): Code(s): G45.9 - Transient cerebral ischemic attack, unspecified Category: Medical (2) Chronic diastolic heart failure: Code(s): I50.32 - Chronic diastolic (congestive) heart failure Category: Medical (3) Hypertension: Code(s): I10 - Essential (primary) hypertension Category: Medical Plan Pleasant 88-year-old female who is here for follow-up. She is background history of chronic diastolic heart failure, coronary artery bypass surgery, hypertension and transient ischemic attack. Clinically she is stable on follow-up. She has ESRD and is currently on peritoneal dialysis. Denying any anginal symptoms. Blood pressure has improved after addition of amlodipine 2.5 mg daily. Thank you for allowing me to participate in the care of your patient. Please feel free to contact me if you have any questions. Coding Level of Care Code Est Pt Level 4 (04486) Diagnoses TIA (transient ischemic attack) G45.9 Chronic diastolic heart failure I50.32 Hypertension I10
== END 2024-04-09 14:26 | disposition home or self-care (01) ==
PROVIDERS: PCP Nurse Practitioner Family; Visit Provider Internal Medicine Cardiovascular Disease
DX: G45.9 Transient cerebral ischemic attack, unspecified (principal); I50.32 Chronic diastolic (congestive) heart failure; I10 Essential (primary) hypertension
CPT/HCPCS: 99214

== ENCOUNTER → 2024-04-09 14:08 | Outpatient (BNVA) | payer MEDICARE, SELFPAY | PROVIDERS: PCP Nurse Practitioner Family; Visit Provider Internal Medicine Cardiovascular Disease | DX: G45.9 Transient cerebral ischemic attack, unspecified (principal); I11.0 Hypertensive heart disease with heart failure; I50.32 Chronic diastolic (congestive) heart failure | CPT/HCPCS: 99212 ==

== ENCOUNTER 2024-10-13 13:04 | Outpatient (AMB) | payer MEDICARE, SELFPAY ==
--- NOTE | 2024-10-13 13:13 | A.OFFVIS_ITS ---
Vital Signs 10/13/24 13:15 Height 5 ft 6 in Weight 160 lb 14.999 oz BMI 26.0 BP 140/64 H Blood Pressure Location Lt brachial Position Sitting Pulse 67 Pulse Source Monitor Intake Visit Reasons: 6mo f/up Intake Note: 6 mth f/up Lining Closer Required: No Accompanied by: Son Allergies No Known Allergies [No Known Allergies*] Allergy (Verified 04/25/23 10:12) Medication List - Last Reconciled 10/13/24 by Juan Padron MD acetaminophen 650 mg PO Q6H PRN amlodipine 2.5 mg PO DAILY ascorbic acid (vitamin C) 1,000 mg PO DAILY atorvastatin 80 mg PO DAILY 30 days B complex-vitamin C-folic acid 0.8 mg (Nephro-Natasha) 1 tab PO DAILY calcium carbonate 600 mg PO DAILY clopidogrel 75 mg PO DAILY cyanocobalamin (vitamin B-12) 1,000 mcg PO DAILY furosemide 120 mg (1.5 x 80 mg) PO DAILY metoprolol succinate ER 50 mg PO DAILY pantoprazole 40 mg PO DAILY sitagliptin phosphate (Januvia) 25 mg PO DAILY vitamin E 400 units PO DAILY HPI Comments Details: Pleasant 89 year female who is here for follow-up. She was previously following at [facility]. She had recent admission to [facility] with congestive heart failure. She was diuresed and discharged home on Lasix 80 mg once a day. She has advanced kidney disease and previous bypass surgery. She is denying any chest discomfort or significant shortness of breath. No orthopnea or PND. No peripheral edema. She is doing great at this point. Taking medications regularly without any issues. 04/25/23: She is here for f/u. She has started peritoneal dialysis since she saw us last time. She is seeing Dr Hope. She had her amlodipine stopped by Dr Hope. She said the next day or so, she had fatigue and she was slurring her speech. These symptoms improved. She did not go to ER. She is saying her PD days were decreased from 7 days to 5 days. She has increased her oxyegn recently. She is anemic and is getting iron infusions. 07/18/2023: She returns for follow-up. She has been doing well. No chest pain or shortness of breath. She is doing peritoneal dialysis at this point. She is saying she is doing very well and has been off oxygen at this point. No shortness of breath. Walking with a walker. On Plavix monotherapy at this point without any bleeding concerns. 12/05/2023: She returns for follow-up. No chest pain or shortness of breath. She is doing peritoneal dialysis and has been doing well with this strategy. Her blood pressure readings at home were elevated. She said she was previously on amlodipine but apparently it was stopped In the past. No other concerns. No bleeding issues. 04/09/2024: She is here for follow-up. She is doing well. No chest pain or shortness of breath. Blood pressure is well controlled. She is doing peritoneal dialysis as before. : She is here for follow-up. She is complaining that the left hand goes to sleep at times especially when she is keeping it raised. No pain or aching in the arm or hand. She is a vasculopath. She is tolerating Plavix without any bleeding issues. [facility] Medical History (Updated 10/13/24 @ 13:46 by Juan Padron MD) Bladder cancer PAD (peripheral artery disease) Cellulitis CKD (chronic kidney disease) Coronary artery disease Hypertension Diabetes Surgical History Hx of mastectomy S/P AAA repair Hx of colonoscopy Hx of endoscopy Hx of cardiac catheterization (~05/2020) Family History Father Lung cancer Stomach ulcer Sister Colon cancer, Onset Age: 80 Breast cancer Heart disease HTN (hypertension) Mother Cirrhosis of liver Family/Other Stomach ulcer Social History Household Members: Family and Children Housing: House Do you presently have visiting nurse or other home services: No Alcohol intake: never Patient Tobacco Use Status: Former Tobacco user Years Smoked: 40 +/- e-Cigarette/Vaping Use: Never Used Advance Directives Date on File: 09/27/21 service: No Current occupational status: retired Review of Systems Const Denies chills, Denies fatigue, Denies fever(s), Denies frequent falls, Denies weakness, Denies weight gain and Denies weight loss ENT Denies dizziness Card Denies chest pain, Denies leg edema, Denies lightheadedness, Denies palpitations, Denies dyspnea and Denies dyspnea on exertion Resp Denies cough, Denies dyspnea and Denies dyspnea on exertion GI Denies hematochezia Musc Denies abnormal gait, Denies muscle weakness, Denies numbness, Denies radiating pain into limb and Denies tingling Neuro Denies abnormal gait, Denies dizziness, Denies frequent falls, Denies numbness, Denies tingling and Denies weakness Endo Denies fatigue and Denies palpitations Physical Exam Vital Signs: Last Vital Signs Pulse 67 10/13/24 13:15 BP 140/64 H 10/13/24 13:15 BMI result Body Mass Index 26.0 GENERAL APPEARANCE: pale. pleasant. NECK: systolic murmur radiating to carotid, no jugular venous distention. Left subclavian bruit. SKIN: Midline sternotomy scar. HEART: ESM aortic area with preserved 2nd heart sound, regular rate and rhythm. LUNGS: clear to auscultation bilaterally. ABDOMEN: soft, nontender. EXTREMITIES: no edema. PERIPHERAL PULSES: Can not feel any radial or ulnar pulse in the left hand. Hand he is well perfused.. NEUROLOGIC: No gross deficits, AAO X 3 Office Procedures EKG Details: Sinus rhythm 67 beats per minute, normal axis, nonspecific ST changes, QTC 467 msec. 52870-[id number], Complete Assessment & Plan Assessment & Plan (1) Aortic stenosis: Code(s): I35.0 - Nonrheumatic aortic (valve) stenosis Category: Medical (2) Carotid bruit: Code(s): R09.89 - Other specified symptoms and signs involving the circulatory and respiratory systems Category: Medical (3) Hypertension: Code(s): I10 - Essential (primary) hypertension Category: Medical Plan [age] female who is here for follow-up. She has background history of end-stage renal disease on peritoneal dialysis. She also has background of coronary artery bypass surgery. She is currently on Plavix monotherapy and has been doing well. She has aortic stenosis murmur by examination and no recent echocardiography. We will repeat ECHO to reassess the aortic valve stenosis. She has bilateral carotid bruits and left subclavian bruit. She has no radial or ulnar pulse in the left hand. She is complaining of some off and on feeling as if the hand goes to sleep. This affects the whole hand and when she shakes the hand this improves. Unsure whether these findings are related to carpal tunnel for similar pathology but given absence of pulses I think we should explore with an ultrasound. We will arrange carotid duplex and we will assess subclavian flow with that. Same medications otherwise. Thank you for allowing me to participate in the care of your patient. Please feel free to contact me if you have any questions. Orders: Orders US carotid duplex BI Today R09.89 - Other specified symptoms and signs involving the circulatory and respiratory systems CA echo transthorac w con Today I35.0 - Nonrheumatic aortic (valve) stenosis Coding Level of Care Code Est Pt Level 4 (61190) Diagnoses Aortic stenosis I35.0 Carotid bruit R09.89 Hypertension I10 CPT Codes EKG - CPT: 00217-Fajkoqigiulqoiwux, Complete ([id number])
[2024-10-13 13:15] VITALS: BP 140/64; PULSE 67; BMI 26.0
--- OUTSIDE RECORDS SUMMARY | 2024-10-13 14:59 | XMS_ITS ---
Author Organization [facility] Address [address] [place] [phone] Care Team Providers Care Operator Lights Name Role Phone Kike PETERSON, Chris Primary Care Provider Mallorie Hernandez [phone] Encounters Encounter Location Date Provider Diagnosis [address] [phone] 03/24/2024 Mallorie Campos Plan Of Treatment Next Appt Details Provider Name:Mallorie Campos , 10/23/2024 03:00:00 PM, [address] [place] [address], [phone], Progress Notes * Paulette GARCIAS LDOB: (89 yo F)Acc No.[id number]:03/24/2024 Progress Note Patient:?Paulette GARCIAS Provider:?Mallorie Campos DPM :1935???Age:88 Y???Sex:Female D ate:03/24/2024 Address:[address] [place], [place] [phone] Pcp:Chris Stokes MD Subjective: * Chief Complaints: * ??? * Medical History:? Objective: * Vitals:? Assessment: Plan: * Treatment: * Images: * The named appointment provid er may or may not be the originator of this progress note, and it is not deemed complete until electronically signed by the appointment provider. Sign off status: Pending * Provider:?Mallorie Campos DPM Date:?2023 Generated for Leighann jeffers/Rip/Kerenitting on:?10/13/2024 02:59 PM EDT
--- OUTSIDE RECORDS SUMMARY | 2024-10-13 14:59 | XMS_ITS ---
Author Organization [facility] Address [address] [place] [address] Care Team Providers Care Furniture Crater Name Role Phone Chris Stokes MD Primary Care Provider Mallorie Hernandez [phone] REASON FOR VISIT same day cx 03/24/24 Encounters Encounter Location Date Provider Diagnosis [address] [address] 03/24/2024 Mallorie Campos Plan Of Treatment Next Appt Details Provider Name:Mallorie Campos , 10/23/2024 03:00:00 PM, [address] [place], [address], Progress Notes * Paulette GARCIAS LDOB: [birth year] (88 yo F)Acc No.[id number]:03/24/2024 Patient:?Paulette Garcias :1935???Age:88 Y???Sex:Female Address:[address] [place] [address], [id number] * true * Date:? Generated for Printi ng/Fabrittneeg/eTransmitting on:?10/13/2024 02:59 PM EDT
--- OUTSIDE RECORDS SUMMARY | 2024-10-13 14:59 | XMS_ITS | Encounter Summary ---
Author Organization [facility] Address [address] [place] [phone] Phone Care Team Providers Care Woods Laborer Name Role Phone Unavailable Primary Care Provider Unavailabl e Encounter Details Date Type Department Care Team ([facility] st Contact Info) Description 10/08/2024 Treatment [facility] [address] [address] Michel Harp MD [address] [address] End stage renal disease; Dependence on renal dialysis Social History Tobacco Use Types Packs/Day Years Used Date Smoking Tobacco: Never Smokeless Tobacco: Never Alcohol Use Standard Drinks/Week Comments No 0 (1 standard drink = 0.6 oz pur e alcohol) Comments Unknown Sex and Gender Information Value Date Recorded Sex Assigned at Not on file Legal Sex Female 5:10 PM EST Gender Identity Not on file Sexual Orientation Not on file documented as of this encounter Miscellaneous Notes * Dialysis Note - Michel Harp MD - 10/08/2024 12:00 AM EDT Patient: Paulette Martínez : 1935 Note Type: Dialysis Rounds-PD Service Date: 10/08/2024 This patient was personally seen for a complete visit as part of routine monthly dialysis care for end stage renal disease. Attending [employer] Battalion Chief: MICHEL HARP MD Dialysis Location: [facility] Patient is stable. HOME MEDICATIONS Medications reviewed. Current [facility] Outpatient Medications alpha tocopherol (VITAMIN E) capsule Take 1 capsule by mouth 1 (one) time each day Start Date: amLODIPine (NORVASC) tablet Take 10 mg by mouth 1 (one) time each day Start Date: 11/06/2021 anastrozole (ARIMIDEX) chemo tablet Take 1 tablet by mouth at bed time Start Date: aspirin EC tablet Take 1 tablet by mouth 1 (one) time each day Start Date: atorvastatin (LIPITOR) tablet Take 80 mg by mouth 1 (one) time each day Start Date: 11/01/2021 B complex-vitamin C-folic acid (NEPHRO-CARLOS) 0.8 MG tablet TAKE 1 TABLET BY MOUTH 1 TIME EACH DAY WITH BREAKFAST. Start Date: 08/14/2024 Calcium Acetate 667 MG tablet Take 1 tablet by mouth in the morning and 1 tablet at noon and 1 tablet in the evening. Take with meals. Start Date: 10/18/2023 calcium carbonate (OS-EDDIE) tablet 1500 mg Take 1 tablet by mouth 1 (one) time each day Start Date: cholecalciferol (VITAMIN D-3) tablet Take 1,000 Units by mouth 1 (one) time each day Start Date: cyancobalamin (VITAMIN B-12) tablet Take 1,000 mcg by mouth 1 (one) time each day Start Date: furosemide (LASIX) tablet Take 80 mg by mouth 1 (one) time each day Start Date: 01/10/2023 JANUVIA 25 MG PO TABS Take 1 tablet by mouth 1 (one) time each day Start Date: 12/19/2021 metoprolol succinate (TOPROL-XL) 24 hr tablet Take 50 mg by mouth 1 (one) time each day Start Date: 11/21/2022 metoprolol tartrate (LOPRESSOR) tablet Take 1 tablet by mouth 1 (one) time each day Start Date: pantoprazole (PROTONIX) EC tablet Take 1 tablet by mouth 1 (one) time each day Start Date: TYLENOL 325 MG PO CAPS Take 2 capsules by mouth 4 (four) times a day Start Date: Current [facility] Allergies Allergen: No Known Allergies BP AND FLUID ASSESSMENT Acceptable blood pressure. Fluid status acceptable. COMMENTS: Home BP is acceptable ADEQUACY ASSESSMENT Kt/V, Total 1.88 (09/30/24) 2.25 (07/08/24) Kt/V, Residual 0.59 (09/30/24) 1.03 (07/08/24) BUN 51 (09/30/24) 44 (09/01/24) 51 (08/05/24) Creatinine 5.84 (09/30/24) 5.60 (09/01/24) 5.94 (08/05/24) Bicarbonate (CO2) 21 (09/30/24) 22 (09/01/24) 19 (08/05/24) Sodium 137 (09/30/24) 140 (09/01/24) 141 (08/05/24) Urine Volume 900 (09/30/24) 950 (07/08/24) Target met. Prescription compliance acceptable. ACCESS ASSESSMENT Current Access: PD Catheter Access is perfect. Acute infection. Tunnel tract without sign of infection. Peritoneal fluid is clear. ANEMIA ASSESSMENT Hgb 10.1 (09/30/24) 10.2 (09/01/24) 10.8 (08/05/24) Iron Saturation (TSat) 23 (09/30/24) 50 (09/01/24) 30 (08/05/24) Ferritin 572 (09/30/24) 519 (09/01/24) 424 (08/05/24) Iron 59 (09/30/24) 116 (09/01/24) 72 (08/05/24) TIBC 253 (09/30/24) 231 (09/01/24) 238 (08/05/24) MCV 100.3 (09/30/24) 100.0 (09/01/24) 100.6 (08/05/24) Platelets 243 (09/30/24) 236 (09/01/24) 219 (08/05/24) Anemia targets met. Continue current TIFFANY dose. Continue maintenance iron. BMM ASSESSMENT Calcium, Adjusted Total 8.5 09/30/24 9.6 09/01/24 8.5 08/05/24 Calcium 8.5 09/30/24 9.6 09/01/24 8.4 08/05/24 Phosphorus, Serum 6.6 09/30/24 4.6 09/01/24 5.6 08/05/24 Ca*PO4 56.1 09/30/24 44.2 09/01/24 47.0 08/05/24 PTH, Intact 20 09/30/24 238 09/01/24 322 08/05/24 Magnesium 2.3 09/30/24 2.1 09/01/24 1.4 08/05/24 Alkaline Phosphatase 87 09/30/24 89 09/01/24 85 08/05/24 Aluminum 4 07/08/24 PTH within target. Hyperphosphatemia noted. Counseled regarding dietary compliance. Calcium controlled. Bone and mineral metabolism parameters reviewed. NUTRITION ASSESSMENT Albumin 4.2 09/30/24 4.0 09/01/24 3.9 08/05/24 Potassium 4.4 09/30/24 4.0 09/01/24 4.4 08/05/24 Hemoglobin A1C 5.3 09/30/24 5.6 07/08/24 Albumin at goal. Potassium controlled. PHYSICAL EXAM Exam performed. Vital Signs Reviewed. Lungs - Clear. CV - Blood pressure noted. No edema. EXT - No ulcers. ADDITIONAL LABS White Blood Cells 10.2 (09/30/24) 9.2 (09/01/24) 8.6 (08/05/24) Cholesterol 120 (09/30/24) 124 (07/08/24) HDL 28 (09/30/24) 25 (07/08/24) LDL-Calc 37 (09/30/24) 38 (07/08/24) Triglycerides 277 (09/30/24) 304 (07/08/24) Hep B Surface Antibody <4 (07/08/24) Uric Acid 6.6 (07/08/24) COMMENTS: Not a transplat candidate based on age ADDITIONAL COMMENT COMMENTS: Not a transplant candidate Signed by: MICHEL HARP MD on 10/08/2024 at 11:59:38 AM documented in this encounter Plan of Treatment Not on file documented as of this encounter Visit Diagnoses Diagnosis End stage renal disease Dependence on renal dialysis documented in this encounter
--- OUTSIDE RECORDS SUMMARY | 2024-10-13 14:59 | XMS_ITS ---
Author Organization [facility] Address [address] [place] [address] Care Team Providers Care Maintenance Machine Repairer Name Role Phone Chris Stokes MD Primary Care Provider Sergio CamposCassandrae Unavailable [phone] Allergies No Known Allergies REASON FOR VISIT At Risk Footcare, Toe Irritation, Ingrown Nail Medications Medication SIG (Take, Route, Frequency, Duration) Notes Start Date End Date Status amLODIPine Benzoate Active Atorvastatin Calcium Active Calcitriol Active januvia Active Plavix 75 MG 1 tablet Orally Once a day Active Clopidogrel Bisulfate 75 MG 1 tablet Orally Once a day Active Biofreeze Cool The Pain 4 % 1 application as needed Externally Three times a day Active Ammonium Lactate 12 % 1 application Externally Twice a day for 30 days Active Calcium Active Januvia 25 MG Orally Not-Ta mary anne Physical Therapy 3-4x per week for 3- 4 weeks 04/03/2016 Not-Taking glyBURIDE 5 MG 1 tablet Orally Once a day for 30 day(s) Not-Taking Amlodipine & Diet Manage Prod Not-Taking Lisinopril 40 MG 1 tablet Orally Once a day for 30 day(s) Not-Taking Dexilant 60 MG 1 capsule Orally Onc e a day for 30 day(s) Not-Taking Night Splint AFO - L1930 as directed 04/03/2016 Not-Taking glipiZIDE 2.5 mg Not -Taking Fish Oil 1000 MG 1 capsule Orally Onc e a day Not-Taking Zantac 150 MG 1 tablet at bedtime Orally Once a day Not-Taking Multivitamin Not-Babar ing Calcium Not-Taking Insulin Not-Taking Byetta 10 MCG Pen No t-Taking Plavix 75 MG Orally Not-Babar ing tiZANidine HCl 4 MG Orally bid for 3 days Not-Taking Fenofibrate Not-Taki ng Docusate Sodium Not- Taking Crestor 10 MG 1 tablet Orally Once a day for 30 day(s) Not-Taking metFORMIN HCl 500 MG 1 tablet with meals Orally Twice a day Not-Taking Plavix 75 MG 1 tablet Orally Once a day Not-Taking Benzonatate 100 MG 1 capsule as needed Orally Three times a day Not-Taking Super B Complex Not- Taking Extra-Depth Diabetic Shoes with 3 Pair Custom heat-molded multi-density innersoles . for 1 year . Dx:hammertoes for . 01/11/2015 Not-Taking traZODone HCl 50 MG Orally Not-Taking Turmeric Not-Taking Rosuvastatin Calcium 40 MG 1 tablet Orally Once a day for 30 day(s) Not-Taking Trulicity 1.5 MG/0.5ML as directed Subcutaneous Not-Taking Aspir-81 81 MG 1 tablet Orally Once a day for 30 day(s) Not-Taking Clopidogrel Bisulfate 75 MG 1 tablet Orally Once a day for 30 day(s) Not-Taking amLODIPine Besylate 10 MG Orally Not-Taking Lasix Active Anastrozole 1 MG Orally Act sung Ensure Plus PRN Not-Taki ng Vitamin E Not-Taking Extra Depth Orthopedic Shoes (1 Pair) with Customized Heat Molded Multidensity Innersoles (3 Pair) as directed Dx: NIDDM/Polyneuropathy (E11.42), Hammertoe Foot Deformity (M20.41,M20.42), Preulcerative Skin Lesion(s) (L85.1 07/24/2024 Active Pantoprazole Sodium 40 MG Orally Active Oyster Shell Calcium + D Active Metoprolol & Diet Manage Prod 50 oral once a day Active Ascorbic Acid Active Vitamin C Active Vitamin B12 Active Magnesium Oxide 250 MG as directed Orally Active Furosemide 20 MG 1 tablet Orally Once a day for 30 day(s) PLUS 80 Active Acetaminophen 325 MG 1 tablet as needed Orally every 4 hrs Active Vitamin D3 Active Cholecalciferol Acti ve Lipitor 80 MG 1 tablet Orally Once a day for 30 day(s) Active Metoprolol-HCTZ ER A ctive Social History Tobacco Use: Social History Observation Description Date Details (start date - stop date) Never Smoker NA - NA Tobacco use other than smoking: Question Answer Notes Are you an other tobacco user? No Tobacco Control (Standard) Question Answer Notes Tobacco use: Nonsmoker Problems Problem Type SNOMED Code ICD Code Onset Dates Problem Status W/U Status Risk Notes Problem Acquired hammer toe of left foot (0086810993265 103) Other hammer toe(s) (acquired), left foot (M20.42) Active confirmed Problem Hallux valgus of right foot (0514597377) Hallux valgus of right foot (M20.11) Active confirmed Problem Hallux valgus of left foot (3744664812) Hallux valgus of left foot (M20.12) Active confirmed Vital Signs Height 5 ft 6.5in in 07/24/2024 Weight 162 lbs 07/24/2024 BMI 25.75 kg/m2 07/24/2024 Blood pressure systolic 108 mm Hg 07/24/19 25 Blood pressure diastolic 68 mm Hg 025 Procedures Procedure Date Ordered Date Performed Result Body Sit e 32432-EOORKPJ NAIL, 6 OR MORE 07/24/2024 N/A 34974-Kmptsnmd Plate 07/24/2024 N/A 42789-BZOP SKIN LESIONS, 2 TO 4 07/24/2024 N/A Encounters Encounter Location Date Provider Diagnosis [facility] [address] [place] [address] 07/24/2024 Mallorie Black Type 2 diabetes mellitus with diabetic polyneuropathy E11.42 ; Other hammer toe(s) (acquired), right foot M20.41 ; Tinea unguium B35.1 ; Pain in left foot M79.672 ; Other hammer toe(s) (acquired), left foot M20.42 ; Ingrown nail L60.0 ; Hallux valgus of right foot M20.11 and Hallux valgus of left foot M20.12 Assessments Encounter Date Diagnosis (ICD Code) Assessment Notes Treatment Notes Treatment Clinical Notes Section Notes 07/24/2024 Type 2 diabetes mellitus with diabetic polyneuropathy (ICD-10 - E11.42) 07/24/2024 Other hammer toe(s) (acquired), right foot (ICD-10 - M20.41) Patient Educated with: DIABETIC FOOT CARE INSTRUCTIONS. pdf (DIABETIC FOOT CARE INSTRUCTIONS. pdf) 07/24/2024 Tinea unguium (ICD-10 - B35.1) 07/24/2024 Pain in left foot (ICD-10 - M79.672) 07/24/2024 Other hammer toe(s) (acquired), left foot (ICD-10 - M20.42) 07/24/2024 Ingrown nail (ICD-10 - L60.0) 07/24/2024 Hallux valgus of right foot (ICD-10 - M20.11) 07/24/2024 Hallux valgus of left foot (ICD-10 - M20.12) Plan Of Treatment Medication Medication Name Sig Start Date Stop Date Notes Biofreeze Cool The Pain 4 % 1 applicatio n as needed Externally Three times a day Ammonium Lactate 12 % 1 application Exte rnally Twice a day for 30 days Extra Depth Orthopedic Shoes (1 Pair) with Customized Heat Molded Multidensity Innersoles (3 Pair) as directed Dx: NIDDM/Polyneuropathy (E11.42), Hammertoe Foot Deformity (M20.41,M20.42), Preulcerative Skin Lesion(s) (L85.1 07/24/2024 Treatment Notes Assessment Notes Other hammer toe(s) (acquired), right fo ot Patient Educated with: DIABETIC FOOT CARE INSTRUCTIONS.pdf (DIABETIC FOOT CARE INSTRUCTIONS.pdf) Pending Test Test Name Order Date 37515-KAIFGUR NAIL, 6 OR MORE 07/24/2024 91390-Igibhuzk Plate 07/24/2024 00887-XKXH SKIN LESIONS, 2 TO 4 07/24/19 25 Next Appt Details Follow Up: 2 Weeks,prn, Reas on: Provider Name:Mallorie Campos , 10/23/2024 03:00:00 PM, [address] [place], [address], Procedure Notes * Category Sub-Category Detail Notes Nail Avulsion Procedure A fine sterile e levator was placed between the eponychium, nail fold, and nail plate to separate the structures. A sterile nail splitter, and/or sterile 316 blade, was then used to longitudinally section the nail along its entire length through the eponychium to the area under the nail fold. The offending portion of nail was from the nail bed with a rolling action and then removed with a hemostat. No underlying bone was identified. There was minimal bleeding as hemostasis was achieved through the temporary use of either a digital tourniquet or the aforementioned local with epinephrine. A bacitracin sterile dressing was applied. Local wound aftercare instructions were discussed and dispensed. The patient was informed of both conservative and future surgical procedures to prevent recurrence. Tylenol or Motrin was recommended for pain or discomfort (80186), DIABETES: Matricectomy deferred at this time due to diabetes risk Anesthesia , was deferred - EVA ROPATHY: patient has medically documented neuropathic condition affecting sensation Location , Bilateral nail bor cesia, T5 Debride Nail 6-10 Nail debridement Nail debridem ent performed extensively to reduce/remove overall nail length and girth, subungual debris, and necrotic tissue, by manual and electrical means with use of a nail nipper and/or dremel, to more viable healthy nail plate or bed tissue 6-10. Silver nitrate used for any petechial bleeding as necessary. Patient chooses, no pharmaceutical tx (34619) Keratoma Treatment Parring or Cutting o f Benign Hyperkeratotic Lesion(s) 41886 (2-4 Lesions) - The Benign hyperkeratotic lesions, as described above were pared, and/or cut utilizing a sterile #15 blade, tissue nippers, and/or dremel Progress Notes * Paulette GARCIAS LDOB: [birth year] (89 yo F)Acc No.[id number]:07/24/2024 Progress Note Patient:Paulette PASTRANA Provider:?Mallorie Campos DPM :1935???Age:89 Y???Sex:Female D ate:07/24/2024 Address:[address] [place], [place] [id number] Pcp:Chris Stokes MD Subjective: * Chief Complaints: * ???At Risk FootcareToe Irrit ationIngrown Nail * HPI: ???At Risk footcare:?Pt States Last PCP Visit:?Date?05/26/2024 ???Toe pain:?Location:?B/L feet.?Duration:?several years.?Course:?worse.?Aggravated by:?shoes, any pressure.?Treatments:?change in shoes.? * ROS:?General/Constitutional:?Nausea?denies.?Vomiting?denies.?Hunger Thirst?denies.?Loss appetite?denies.?Chills?denies.?Fatigue?denies.?Fever?denies.?Night Sweats?denies.?Unexplained weight loss?denies.?Ophthalmologic:?Blurred vision?denies.?Red eye?denies.?HEENTM:?Dentures?denies.?Dizziness?denies.?Glasses/contacts?denies.?Retinopathy?den ies.?Blurred/double vision?denies.?TMJ?denies.?Discharge/drainage?denies.?Implants?denies.?Hard of hearing denies.?Difficulty chewing/swallowing/speaking?denies.?Nose bleeds?denies.?Sore mouth?denies.?Swollen glands?denies.?Respiratory:?On O xygen?denies.?Pneumonia/pleurisy?denies.?Bronchitis?denies.?Emphysema?denies.?Co ughing?denies.?Cough blood?denies.?Shortness of breath?denies.?Wheezing?denies.?Cardiovascular:?Pacemaker?denies.?MVP?denies.?WPW?denies.?CHF?denies.?Heart attack?denies.?Septal defect?denies.?Rapid beat?denies.?Chest pain ?denies.?Atrial Fib.?denies.?Murmur/Palpitations?denies.?Gastrointestinal:?Hemorrhoids?denies.?Stomach/Abdominal pain?denies.?Dark blood stool?denies.?Irritable bowel ?denies.?Constipation?denies.?Diarrhea?denies.?Vomiting?denies.?Hematology:?Swelling?admits.?Bruising?denies.?Bleeding problem?denies.?Genitourinary:?Blood urine?denies.?Frequent/Painfu/urination/bladder control?denies.?Kidney stones?denies.?Infection (UTI)?denies.?Nephropathy?denies.?Musculoskeletal:?Hammertoes?admits.?Bunions?denies.?Scoliosis/kyphosis?denies.?Muscle cramps / walking?denies.?Generalized aches and pains?admits.?Weakness?denies.?Integ.:?Marrero?denies.?Scars?denies.?Corns/calluses?admits.?Ingrown nails?admits.?Painful nails?denies.?Rashes?denies.?Neurologic:?Difficulty sleeping?denies.?Bipolar?denies.?Brain disorder?denies.?Balance t rouble?denies.?Confusion?denies.?Fainting/blackouts?denies.?Headache?denies.?Otoniel mors?denies.? * Medical History:? * Surgical History:?skin cance r 1969gall bladder 1984varicose vein stripping 1970bladder cancer 1994abdominal aortic aneurysm repair 2001lumpectomy, right breast 04/2017double bypass 08/2018right breast removed 08/03/2020ye Surgery -right 10/07/2020 * Hospitalization/Major Diagno stic Procedure:?Admitted to [facility];pnom[place] 02/23/2015-[place] [place]2017[facility] [place] Stent put in leading to kidney 04/22/20[facility]- fell, 1 week stay, went to rehab 08/2022[facility] [place] trouble breathing 09/2022 * Family History:?Mother: dece ased, kidney/liver disease, diagnosed with Other specified conditions influencing health status.?Father: , diagnosed with Other malignant neoplasm of unspecified site. Siblings: poor circulation, diagnosed with Other malignant neoplasm of unspecified site.?Spouse: .? * Social History:?Tobacco Use:?Tobacco use other than smoking?Are you an other tobacco user??No ?Tobacco Control (Standard)?Tobacco use:?Nonsmoker ???Miscellaneous:?Caffeine: yes, 1-2 cups per day, cups per day. ?Children: yes, 2. ?Exercise: yes, walking. ?Marital status: . 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 * Medications:?TakingClopidogr el Bisulfate 75 MG Tablet 1 tablet Orally Once a day Calcium Calcitriol Atorvastatin Calcium amLODIPine Benzoate Plavix 75 MG Tablet 1 tablet Orally Once a day januvia Cholecalciferol Metoprolol-HCTZ ER Lipitor 80 MG Tablet 1 tablet Orally Once a day Magnesium Oxide 250 MG Tablet as directed Orally Vitamin B12 Vitamin D3 Acetaminophen 325 MG Tablet 1 tablet as needed Orally every 4 hrs Furosemide 20 MG Tablet 1 tablet Orally Once a day , Notes to Pharmacist: PLUS 80Ascorbic Acid Vitamin C Oyster Shell Calcium + D Pantoprazole Sodium 40 MG Tablet Delayed Release Orally Metoprolol & Diet Manage Prod 50 mg oral once a day Anastrozole 1 MG Tablet Orally Lasix Ammonium Lactate 12 % Cream 1 application Externally Twice a day Biofreeze Cool The Pain 4 % Gel 1 application as needed Externally Three times a day Taking Clopidogrel Bisulfate 75 MG Tablet 1 tablet Orally Once a day Taking Calcium Taking Calcitriol Taking Atorvastatin Calcium Taking amLODIPine Benzoate Taking Plavix 75 MG Tablet 1 tablet Orally Once a day Taking januvia Taking Cholecalciferol Taking Metoprolol-HCTZ ER Taking Lipitor 80 MG Tablet 1 tablet Orally Once a day Taking Magnesium Oxide 250 MG Tablet as directed Orally Taking Vitamin B12 Taking Vitamin D3 Taking Acetaminophen 325 MG Tablet 1 tablet as needed Orally every 4 hrs Taking Furosemide 20 MG Tablet 1 tablet Orally Once a day , Notes to Pharmacist: PLUS 80Taking Ascorbic Acid Taking Vitamin C Taking Oyster Shell Calcium + D Taking Pantoprazole Sodium 40 MG Tablet Delayed Release Orally Taking Metoprolol & Diet Manage Prod 50 mg oral once a day Taking Anastrozole 1 MG Tablet Orally Taking Lasix Taking Ammonium Lactate 12 % Cream 1 application Externally Twice a day Taking Biofreeze Cool The Pain 4 % Gel 1 application as needed Externally Three times a day Not-Taking/PRNVitamin E Ensure Plus , Notes to Pharmacist: PRNamLODIPine Besylate 10 MG Tablet Orally Aspir-81 81 MG Tablet Delayed Release 1 tablet Orally Once a day Trulicity 1.5 MG/0.5ML Solution Pen-injector as directed Subcutaneous Rosuvastatin Calcium 40 MG Tablet 1 tablet Orally Once a day Clopidogrel Bisulfate 75 MG Tablet 1 tablet Orally Once a day Extra-Depth Diabetic Shoes with 3 Pair Custom heat-molded multi-density innersoles . . for 1 year . Dx:sneha Super B Complex Benzonatate 100 MG Capsule 1 capsule as needed Orally Three times a day Turmeric traZODone HCl 50 MG Tablet Orally Plavix 75 MG Tablet 1 tablet Orally Once a day metFORMIN HCl 500 MG Tablet 1 tablet with meals Orally Twice a day Crestor 10 MG Tablet 1 tablet Orally Once a day Docusate Sodium Fenofibrate Plavix 75 MG Tablet Orally Byetta 10 MCG Pen Insulin Calcium tiZANidine HCl 4 MG Tablet Orally bid for 3 days Zantac 150 MG Tablet 1 tablet at bedtime Orally Once a day Multivitamin Fish Oil 1000 MG Capsule 1 capsule Orally Once a day glipiZIDE 2.5 mg Night Splint AFO - L1930 as directed Physical Therapy 3-4x per week for 3-4 weeks Dexilant 60 MG Capsule Delayed Release 1 capsule Orally Once a day Lisinopril 40 MG Tablet 1 tablet Orally Once a day Amlodipine & Diet Manage Prod glyBURIDE 5 MG Tablet 1 tablet Orally Once a day Januvia 25 MG Tablet Orally Medication List reviewed and reconciled with the patientNot-Taking/PRN Vitamin E Not-Taking/PRN Ensure Plus , Notes to Pharmacist: PRNNot-Taking/PRN amLODIPine Besylate 10 MG Tablet Orally Not-Taking/PRN Aspir- 81 81 MG Tablet Delayed Release 1 tablet Orally Once a day Not-Taking/PRN Trulicity 1.5 MG/0.5ML Solution Pen-injector as directed Subcutaneous Not-Taking/PRN Rosuvastatin Calcium 40 MG Tablet 1 tablet Orally Once a day Not-Taking/PRN Clopidogrel Bisulfate 75 MG Tablet 1 tablet Orally Once a day Not-Taking/PRN Extra-Depth Diabetic Shoes with 3 Pair Custom heat-molded multi-density innersoles . . for 1 year . Dx:sneha Not-Taking/PRN Super B Complex Not-Taking/PRN Benzonatate 100 MG Capsule 1 capsule as needed Orally Three times a day Not-Taking/PRN Turmeric Not-Taking/PRN traZODone HCl 50 MG Tablet Orally Not-Taking/PRN Plavix 75 MG Tablet 1 tablet Orally Once a day Not-Taking/PRN metFORMIN HCl 500 MG Tablet 1 tablet with meals Orally Twice a day Not-Taking/PRN Crestor 10 MG Tablet 1 tablet Orally Once a day Not-Taking/PRN Docusate Sodium Not-Taking/PRN Fenofibrate Not-Taking/PRN Plavix 75 MG Tablet Orally Not-Taking/PRN Byetta 10 MCG Pen Not-Taking/PRN Insulin Not-Taking/PRN Calcium Not-Taking/PRN tiZANidine HCl 4 MG Tablet Orally bid for 3 days Not-Taking/PRN Zantac 150 MG Tablet 1 tablet at bedtime Orally Once a day Not-Taking/PRN Multivitamin Not-Taking/PRN Fish Oil 1000 MG Capsule 1 capsule Orally Once a day Not-Taking/PRN glipiZIDE 2.5 mg Not-Taking/PRN Night Splint AFO - L1930 as directed Not-Taking/PRN Physical Therapy 3-4x per week for 3-4 weeks Not- Taking/PRN Dexilant 60 MG Capsule Delayed Release 1 capsule Orally Once a day Not- Taking/PRN Lisinopril 40 MG Tablet 1 tablet Orally Once a day Not-Taking/PRN Amlodipine & Diet Manage Prod Not-Taking/PRN glyBURIDE 5 MG Tablet 1 tablet Orally Once a day Not-Taking/PRN Januvia 25 MG Tablet Orally Medication List reviewed and reconciled with the patient * Allergies:?N.K.D.A.yes[Aller gies Verified] Objective: * Vitals:?Ht: 5 ft 6.5in, Wt: 162, BMI: 25.75, Shoe size: 9-9.5, BP: 108/68 mm Hg, BS: 121, Ht-cm: 168.91 cm, Wt-k.48 kg. * Examination: ???CQM Exceptions:: ?Hemoglobin A1c not performed?Reason:?No reason specified?Ophthalmology Referral: ?DIABETES EYE EXAM?Procedure Performed:?Yes ?Date of Exam Performed?01/31/2024 ?Findings of Diabetic Eye Exam:?no retinopathy?General Examination: ?GENERAL APPEARANCE:?Reveals a pleasant, alert, well nourished, well- developed, well hydrated individual, who demonstrates proper attention to hygiene/body habitus, and is in no acute distress, Pt serves as own historian for office visit today.?ORIENTED:?person, place, and time.?FOOT EXAM:?Lower Extremity Neurological Exam performed:?Yes ?Visual exam of foot performed:?Yes ?Date?07/24/2024 ?Sensory testing performed:?sensations diminished ?Sensory and motor testing performed:?sensations diminished ?Pedal pulse taking performed:?2+ ?Footwear Evaluation?Footwear Evaluation performed:?Yes?Neurological: ?SENSORY:?Neurological exam demonstrates, reduced sharp/dull discrimination, reduced light touch sensation, 5.07 monofilament test performed at plantar aspects of 5 varied sites per foot shows sensation, absent, at Forefoot, B/L, Pt relates, cont. anesthesia, Forefoot ,?.?Nails: ?NAILS are:?Elongated, overgrown, dystrophic, lytic, greater than 3mm thick, discolored and friable with crumbly malodorous subungual debris,with dull to no pain on palpation due to neuropathy, TA, T1, T2, T3, T4,? T6, T7, T8, T9.?Dermatologic: ?SKIN FINDINGS:?Skin exam reveals Keratotic lesion(s) located at, plantar?Heel(s), B/L?.?Neuroma Pain: ?PALPATION:?No interspace pain noted on palpation.?Orthopedic: ?BUNION:?Medially prominent 1st MPJ, B/L, there is evidence of shoe producing skin irritation.?DIGITAL DEFORMITIES:?Digital contracture, PIPJ, 2-5 B/L, incompl-reducible to push-up test, no over, nor underlapping,?there is?evidence of shoe producing skin irritation.?FOOTWEAR:?Non-Diabetic with no OT , worn, non-supportive, shoe gear properties exacerbate patient's foot/toe deformity.?Ingrown Nail: ?INSPECTION:?Reveals nail incurvation, dull pain on palpation due to neuropathy, groove hypertrophy, Bilateral nail borders, T5.? Assessment: * Assessment: 1.?Type 2 diabetes mellitus with diabetic polyneuropathy - E11.42???2.?Other hammer toe(s) (acquired), right foot - M20.41 (Primary)???Specify :Chronic problem, Worse (4),Rx Management (4)???3.?Tinea unguium - B35.1???4.?Pain in left foot - M79.672???5.?Other hammer toe(s) (acquired), left foot - M20.42???Specify :Chronic problem, Worse (4),Rx Management (4)???6.?Ingrown nail - L60.0???7.?Hallux valgus of right foot - M20.11???8.?Hallux valgus of left foot - M20.12??? Plan: * Treatment: 2.?Type 2 diabetes mellitus with diabetic polyneuropathy?Procedure: 80509-RQRJ SKIN LESIONS, 2 TO 4 3.?Tinea unguium?Procedure: 57294-HLEBPDC NAIL, 6 OR MORE 4.?Ingrown nail?Procedure: 83272-Jvhwiffl Plate 5.?Others? Start Ammonium Lactate Cream, 12 %, 1 application, Externally, Twice a day, 30 days, 60, Refills 2;?Start Biofreeze Cool The Pain Gel, 4 %, 1 application as needed, Externally, Three times a day.?? * Procedures:?Debride Nail 6-10:?Nail debridement?Nail debridement performed extensively to reduce/remove overall nail length and girth, subungual debris, and necrotic tissue, by manual and electrical means with use of a nail nipper and/or dremel, to more viable healthy nail plate or bed tissue 6-10. Silver nitrate used for any petechial bleeding as necessary. Patient chooses, no pharmaceutical tx (41551).?Keratoma Treatment:?Parring or Cutting of Benign Hyperkeratotic Lesion(s)?99353 (2-4 Lesions) - The Benign hyperkeratotic lesions, as described above were pared, and/or cut utilizing a sterile #15 blade, tissue nippers, and/or dremel.?Nail Avulsion:?Location?, Bilateral nail border, T5.?Anesthesia?, was deferred - NEUROPATHY: patient has medically documented neuropathic condition affecting sensation.?Procedure?A fine sterile elevator was placed between the eponychium, nail fold, and nail plate to separate the structures. A sterile nail splitter, and/or sterile 316 blade, was then used to longitudinally section the nail along its entire length through the eponychium to the area under the nail fold. The offending portion of nail was from the nail bed with a rolling action and then removed with a hemostat. No underlying bone was identified. There was minimal bleeding as hemostasis was achieved through the temporary use of either a digital tourniquet or the aforementioned local with epinephrine. A bacitracin sterile dressing was applied. Local wound aftercare instructions were discussed and dispensed. The patient was informed of both conservative and future surgical procedures to prevent recurrence. Tylenol or Motrin was recommended for pain or discomfort (91113), DIABETES: Matricectomy deferred at this time due to diabetes risk.? * Procedure Codes:?10667 Avuls ion Plate, Modifiers: T5 85531 DEBRIDE NAIL, 6 OR MORE, Modifiers: XS 13540 TRIM SKIN LESIONS, 2 TO 4, Modifiers: XS * Preventive Medicine:? ??Counseling:?Discussion:?-14: Office or other outpatient visit for the evaluation and management of an established patient, which required a medically appropriate history and/or examination and MODERATE level of DECISION MAKING for: 1 OR MORE CHRONIC PROBLEM(S) THATS WORSENING, 2 STABLE CHRONIC PROBLEMS, A NEWLY DIAGNOSED PROBLEM WITH UNCERTAIN PROGNOSIS, AN ACUTE COMPLICATED INJURY WITH MULTIPLE TREATMENT OPTIONS, OR AN ACUTE PROBLEM WITH ACCOMPANYING SYSTEMIC SYMPTOMS, THAT POSE(S) A MODERATE RISK OF MORBIDITY. THIS CONDITION MAY ALSO INCLUDE RX DRUG MANAGEMENT, OR A DECISON FOR MINOR SURGERY. The visit on the day of the encounter encompassed interpreting the data and educating the patient as to the nature of their condition, treatment options available according to their individual PMH, meds, allergies, and overall health/living conditions, as well as any potential risks or complications that may occur from a failure to adhere to, and participate in, the recommended course of therapy. The discussion included a complete verbal, and/or written explanation of the examination results, any x-rays taken, the proposed diagnosis, and outline of the treatment plan. A schedule for future care needs was also explained. The patient verbalized an understanding of the instructions at this time and agreed to be an active participant in their treatment. If the patient should think of any questions or concerns after the visit, I have encouraged the patient to call the office.?Digital Surgery:?We elected to try conservative treatment at the present time, due to the patients age, medical history,.?Digital Treatment:?HT- I explained to the patient the possible etiologies of Hammertoes, including genetics/foot type/shoegear/activity level/exercise routine and the risks/benefits of all the different treatment options for their pain including: No treatment at all, Rest, Ice, New/supportive/wider/deeper Shoe gear, Digital Padding/Strapping/Taping/Bracing/Gel protective sleeves, Foot/Ankle AFO Bracing, Stretching exercises, Deep Tissue Massage, Arch support/shoe inserts with splay metatarsal padding, and Custom orthoses. I insisted that any digital devices be removed daily and not worn overnight for safety. The patient is to carefully examine the toes daily for any skin irritation while using any splinting or padding device. The advantages and disadvantages of each option were discussed and the patients questions re: shoe gear, padding, custom vs prefabricated inserts, activity level, and consistency in home treatment regimens for optimal success were answered to their verbally confirmed satisfaction, HV - I explained to the patient the risks/benefits of all the different treatment options for their pain including: No treatment at all, Rest, Ice, New/supportive/wider/deeper Shoe gear, Digital Padding/Strapping/Taping/Bracing/Gel protective sleeves, Foot/Ankle AFO Bracing, Stretching exercises, Deep Tissue Massage, Arch support/shoe inserts with splay metatarsal padding, and Custom orthoses. I insisted that any digital devices be removed daily and not worn overnight for safety. The patient is to carefully examine the toes daily for any skin irritation while using any splinting or padding device. The advantages and disadvantages of each option were discussed and the patients questions re: shoe gear, padding, custom vs prefabricated inserts, activity level, and consistency in home treatment regimens for optimal success were answered to their verbally confirmed satisfaction.?Shoe Gear Counseling:?SHOE Rx - The patient was counseled in great detail on their muscoloskeletal foot and toe deformities which coincided with the dermatological presentations visualized on exam. We discussed how their deformities put the integrity of their feet at risk for potential pedal complications which makes the accomidative diabetic shoes and cutomizable inserts medically necessary. We discussed the different shoe and insert treatment types and options, as well as the important advantages for adhering to regularly wearing these accomidative devices daily. The patient was made aware of the fact that a failure to abide by these recommedations may be deleterious to their foot health as they are able to prevent many pedal complications such as skin irritation, skin ulceration, infection, and even loss of toe/foot/leg/or life. Time was also spent with the patient dispensing and discussing proper diabetic footcare techniques including daily skin moisturization, daily foot inspection for any interruption in skin integrity including open lesions, or sign of infection such as redness/malodor/drainage/swelling. Also discussed and recommended were procedures regarding daily shoe inspection for the presence of internal foreign bodies as well as any visualized irregular shoe or insert wear. Patient questions re: shoes, inserts, and self foot inspections were answered to their satisfaction as the patient verbally confirmed a full understanding of the above information. A Rx for Extra Depth Orthopedic Shoes with 3 pair of custom heat-molded inserts was dispensed.? ??Screening/Special Tests:?Fall Risk?Screening:?No falls in the past year ?FALLS: Screening for Future Fall Risk?Have you had any falls with injury in the past year??No * Follow Up:?2 Weeks,prn * Images: * Sign off status: Completed true * Provider:?Mallorie Campos DPM Date:?2024 Generated for Leighann jeffers/Rip/eTransmitting on:?10/13/2024 02:58 PM EDT History and Physical Notes * HPI (History of Present Illness) Category Sub-Category Detail Notes Category Not es Toe pain Location: B/L feet Duration: several years Course: worse Aggravated by: shoes, any pressure Treatments: change in shoes At Risk footcare Pt States Last PCP Visit: Date: 4 Examination Category Sub-Category Detail Notes Category Not es Ingrown Nail INSPECTION: Reveals nail inc urvation, dull pain on palpation due to neuropathy, groove hypertrophy, Bilateral nail borders, T5 Neuroma Pain PALPATION: No interspace pain noted on palpation Neurological SENSORY: Neurological exa m demonstrates, reduced sharp/dull discrimination, reduced light touch sensation, 5.07 monofilament test performed at plantar aspects of 5 varied sites per foot shows sensation, absent, at Forefoot, B/L, Pt relates, cont. anesthesia, Forefoot , TINEL'S COMPRESSION: Dermatologic SKIN FINDINGS: Skin exam reveal s Keratotic lesion(s) located at, plantar Heel(s), B/L Orthopedic BUNION: Medially promine nt 1st MPJ, B/L, there is evidence of shoe producing skin irritation FOOTWEAR EVALUATION: Non-Diabetic with n o OT , worn, non-supportive, shoe gear properties exacerbate patient's foot/toe deformity DIGITAL DEFORMITIES: Digital contracture , PIPJ, 2-5 B/L, incompl-reducible to push-up test, no over, nor underlapping, there is evidence of shoe producing skin irritation General Examination GENERAL APPEARANCE: Reveals a pleasant, alert, well nourished, well-developed, well hydrated individual, who demonstrates proper attention to hygiene/body habitus, and is in no acute distress, Pt serves as own historian for office visit today FOOT EXAM: Lower Extremity Neurological Exa m performed:: Yes Visual exam of foot performed:: Yes Date: 07/24/2024 Sensory testing performed:: sensations d iminished Sensory and motor testing performed:: se nsations diminished Pedal pulse taking performed:: 2+ ORIENTED: person, place, and t shayy Footwear Evaluation Footwear Evaluation performe d:: Yes Ophthalmology Referral DIABETES EYE EXAM Procedure Perform ed:: Yes ?Date of Exam Performed: 01/31/2024 Findings of Diabetic Eye Exam:: no retin opathy Nails NAILS are: Elongated, overg rown, dystrophic, lytic, greater than 3mm thick, discolored and friable with crumbly malodorous subungual debris,with dull to no pain on palpation due to neuropathy, TA, T1, T2, T3, T4, T6, T7, T8, T9 CQM Exceptions: Hemoglobin A1c not performed Reason:: No r yosvany specified
--- OUTSIDE RECORDS SUMMARY | 2024-10-13 14:59 | XMS_ITS ---
Author Organization [facility] Care Team Providers Care Hospice Spiritual Care Coordinator Name Role Phone Ciara Hodgson Unavailable Unavailable Nicole Sr Unavailable Unavailable Ana Ibarra Unavailable Unavailable Allergies and adverse reactions No Known Allergies Care Team Name Role Address Phone Organization Dates Nicole Sr PCP [address] [id number], [place], [address], [facility] (Office): : [facility] 08/17/2022 - 09/02/2022 Ciara [place], [address], [facility] (Office): : [facility] 08/17/2022 - 09/02/2022 Ana Ibarra Attending Physician [address] [place] [address] [address], [place], [address], [facility] (Office): : [facility] 08/17/2022 - 09/02/2022 Mental Status Section Date Assessment Total Score Description 09/02/2022 BIMS 15 cognitively int act CAM 0 No delirium ind icated 08/23/2022 BIMS 15 cognitively int act CAM 0 No delirium ind icated PHQ-9 02 minimal depress ion Problems Problem # Description Date of onset Resolved Date Code CodeSystem Concern Status 1 ATHEROSCLEROTIC HEART DISEASE OF [place] CORONARY ARTERY WITHOUT ANGINA PECTORIS 08/09/[id number] active 2 CHRONIC KIDNEY DISEASE, UNSPECIFIED 08/09/[id number] active 3 ENCOUNTER FOR OTHER ORTHOPEDIC AFTERCARE 08/09/[address] active 4 ESSENTIAL (PRIMARY) HYPERTENSION 08/09/[address] active 5 HISTORY OF FALLING 08/09/[address] active 6 OTHER LACK OF COORDINATION 08/09/[address] active 7 OTHER SPECIFIED FRACTURE OF LEFT PUBIS, SUBSEQUENT ENCOUNTER FOR FRACTURE WITH ROUTINE HEALING 08/09/[address] active 8 TYPE 2 DIABETES MELLITUS WITHOUT COMPLICATIONS 08/09/[id number] active 9 UNSPECIFIED FALL, SUBSEQUENT ENCOUNTER 08/09/[address] active Reason for Referral No Reasons for Referral Entered Social History Social History Observation Description Start Date End Date Code Code System Current Smoking Status Tobacco smoking consumption unknown 052916986 SNOMED CT Sex Assigned At Female 1935 38076-9 [facility] Vital Signs Code Code System Vitals Name Values and Units Timing Information 9279-1 [facility] Respiratory Rate Value=18.0 Units=/m in 09/02/2022 8462-4 [facility] Blood Pressure-Diastolic Value=80 Un its=mmHg 09/02/2022 8480-6 [facility] Blood Pressure-Systolic Uzshk=355 Un its=mmHg 09/02/2022 8310-5 [facility] Body Temperature Value=97.5 Units=?? F 09/02/2022 8867-4 [facility] Heart rate Value=91.0 Units=/min 09/2022 31793-3 [facility] O2 % BldC Oximetry Value=92.0 Units= % 09/02/2022 58670-5 [facility] Pain Level Value=0.0 09/02/2022 2339-0 [facility] Blood Sugar Ytwsm=402.0 Units=mg/dL 09/02/2022 15802-5 [facility] Weight Gxiat=530.8 Units=Lbs 08/2022 8302-2 [facility] Height Value=66.0 Units=Inches 08/10/2022
--- OUTSIDE RECORDS SUMMARY | 2024-10-13 14:59 | XMS_ITS | Clinical Summary ---
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 Name Role Phone Unavailable Primary Care Provider Unavailabl e Allergies No known active allergies Medications Acetaminophen (Tylenol) 325 MG capsule Take 2 capsules by mouth 4 (four) times a day Active anastrozole (ARIMIDEX) 1 MG chemo tablet Take 1 tablet by mouth at bed time Active aspirin (ST MARQUEZ) 81 MG EC tablet Take 1 tablet by mouth 1 (one) time each day Active calcium carbonate (OS-EDDIE) 600 MG tablet Take 1 tablet by mouth 1 (one) time each day Active metoprolol tartrate (LOPRESSOR) 50 MG tablet Take 1 tablet by mouth 1 (one) time each day Active pantoprazole (PROTONIX) 40 MG EC tablet Take 1 tablet by mouth 1 (one) time each day Active alpha tocopherol (VITAMIN E) 400 units capsule Take 1 capsule by mouth 1 (one) time each day Active cholecalciferol (VITAMIN D-3) 25 MCG (1000 UT) tablet Take 1,000 Units by mouth 1 (one) time each day Active cyanocobalamin (VITAMIN B-12) 1000 MCG tablet Take 1,000 mcg by mouth 1 (one) time each day Active atorvastatin (LIPITOR) 80 MG tablet Take 80 mg by mouth 1 (one) time each day 2 Active amLODIPine (NORVASC) 10 MG tablet Take 10 mg by mouth 1 (one) time each day 2 Active Januvia 25 MG tablet Take 1 tablet by mouth 1 (one) time each day 2 Active furosemide (LASIX) 80 MG tablet Take 80 mg by mouth 1 (one) time each day 3 Active metoprolol succinate XL (TOPROL XL) 50 MG 24 hr tablet Take 50 mg by mouth 1 (one) time each day 3 Active Calcium Acetate 667 MG tablet Take 1 tablet by mouth in the morning and 1 tablet at noon and 1 tablet in the evening. Take with meals. 270 tablet 3 4 10/18/19 25 Active B complex-vitamin C-folic acid (NEPHRO-CARLOS) 0.8 MG tablet TAKE 1 TABLET BY MOUTH 1 TIME EACH DAY WITH BREAKFAST. 30 tablet 11 5 Active sevelamer carbonate (Renvela) 800 MG tablet Take 1 tablet (800 mg total) by mouth 4 (four) times a day (with meals and snack) Swallow tablet whole; do not crush, break, or chew. 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 No signs of bronchopneumonia. No antibiotics indicated but the patient would do well with a short course perhaps 1 month of Flovent 2 puffs twice daily scheduled x30 days. Take the albuterol HFA 2 puffs 4 times daily as needed and schedule for nightly for better rest. Finally so that she can have better rest on 10 mL of Robitussin-AC nightly. That too would be may be 30 days or what ever it takes. She is following up with [facility] in July. Chronic kidney disease, stage 4 (severe) 022 Polyneuropathy due to type 2 diabetes mellitus 0 10/27/2021 Acute nontraumatic kidney injury 03/17/2021 Benign hypertensive renal disease 03/17/2021 Proteinuria 03/17/2021 Renovascular hypertension 09/24/2020 Renal artery stenosis 04/06/2020 Overview (03/17/2021): Last Assessment & Plan: Patient is status post a bare-metal stent to the left renal artery on 04/22/2020 at [facility]. We recommend aspirin long-term and continuing Plavix for at least [address] Hernandez. Patient is doing quite well. She has been checking her blood pressures at home and they are much better controlled. She is very happy with her procedure. She has had no complications in terms of her right femoral incision site. EKG in the office today shows sinus rhythm with PACs and no ST or T wave abnormalities. We will have her follow through with a renal artery ultrasound in the near future and again in 6 months to ensure patency of her stent. I will request her labs to be sent over from Dr. Baker office to visualize her most recent BMP. We will see her back in follow-up in 3 months. Stage 3 chronic kidney disease 03/14/2018 Essential hypertension 06/12/2017 Type 2 diabetes mellitus without complication Resolved Problems Problem Noted Date Diagnosed Date Resolved Date Aneurysm of descending thoracic aorta 11/16/2021 02/01/2022 Coronary arteriosclerosis 11/16/2021 Diabetes mellitus 11/16/2021 02/01/2022 H/O: vertigo 11/16/2021 02/01/2022 Hiatal hernia 11/16/2021 02/01/2022 Malignant neoplasm of urinary bladder 11/16/2021 02/01/2022 Polyp of colon 11/16/2021 02/01/2022 Gastro-esophageal reflux dis ease without esophagitis 08/31/2021 02/01/2022 Ankle edema 12/21/2020 03/17/2021 Malignant neoplasm of breast (female), unspecified 08/03/2020 03/17/2021 Malignant neoplasm of overla pping sites of breast 03/17/2020 03/17/2021 Overview (04/01/2024): Replacing diagnoses that were inactivated after the 04/01/24 Regulatory Import Chronic heart failure 12/10/20192020 Serum amylase above reference range 11/04/2019 03/17/2021 Chronic thoracic back pain 06/30/2019 0 03/17/2021 Multiple nodules of lung 11/27/2018 History of coronary artery bypass grafting 10/24/2018 03/17/2021 H/O Spinal surgery 07/30/2017 Disorder of carotid artery 06/12/2017 0 03/17/2021 H/O: malignant neoplasm 06/12/201703/02 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 06/12/2017 03/17/2021 Hypertriglyceridemia 06/12/2017 021 Mixed hyperlipidemia 06/12/2017 021 Multinodular goiter 06/12/2017 03/17/20 21 Myofascial pain 06/12/2017 03/17/2021 Peripheral vascular disease 06/12/2017 03/17/2021 Psychophysiologic insomnia 06/12/2017 0 03/17/2021 History of malignant neoplasm of breast 05/23/2017 03/17/2021 Encounters Date Type Department Care Team Description 10/08/2024 Treatment [facility] [address] [facility] [address] [place] [address] Michel Harp MD End stage renal disease; Dependence on renal dialysis 09/10/2024 Treatment [facility] [place] [address] [facility] [address] [place] [address] Michel Harp MD End stage renal disease; Dependence on renal dialysis 08/14/2024 Refill [facility] [address] [place] [address] Michel Harp MD 08/13/2024 Treatment [facility] [address] [facility] [address] [place] [address] Michel Harp MD 07/16/2024 Treatment [facility] [place] [address] [address] Michel Harp MD from Last 3 Months Immunizations Immunization Administration Dates Next Due Influenza (IM) Preservative Free 022,04/01/2020,04/28/2019,03/26,04/12/2016,08/30/2015 Influenza Split High Dose Pr eservative Free IM 03/14/2018,04/09/2017,04/12/2016,04/21,04/03/2014 Influenza, Unspecified 04/25/2019 Moderna SARS-COV-2 10/28/2020,09/28/2020 Pneumococcal Conjugate 13-Valent 09/25/2018,05/02 Pneumococcal Polysaccharide 08/30/2015, 1 Tdap 08/06/2019 Zoster 05/19/2016 Family History Medical History Relation Comments Cancer Father Hypertension Sibling 1 Heart disease Sibling 2 Kidney disease Sibling 3 Cancer Sibling 4 Relation Status Comments Father Mother Sibling 1 Sibling 2 Sibling 3 Sibling 4 Social History Tobacco Use Types Packs/Day Years Used Date Smoking Tobacco: Never Smokeless Tobacco: Never Tobacco Cessation:Counseling Given: Not Answered Alcohol Use Standard Drinks/Week Comments No 0 (1 standard drink = 0.6 oz pur e alcohol) Comments Unknown Sex and Gender Information Value Date Recorded Sex Assigned at Not on file Legal Sex Female 5:10 PM EST Gender Identity Not on file Sexual Orientation Not on file Last Filed Vital Signs Vital Sign Reading Time Taken Comments Blood Pressure 127/64 03/28/2023 4:10 PM EDT Pulse 63 03/28/2023 4:10 PM EDT Temperature - - Respiratory Rate - - Oxygen Saturation 93% 03/28/2023 4:10 PM EDT Inhaled Oxygen Concentration - - Weight 69.4 kg (153 lb) 03/28/2023 4:10 PM EDT Height 168.9 cm (5' 6.5 ) 12/20/2022 4:46 PM EDT Body Mass Index 24.32 12/20/2022 4:46 PM EDT Plan of Treatment Health Maintenance Due Date Last Done Comments Hepatitis B Vaccine (1 of 5 - Risk Dialysis 4-dose series) 1955 Diabetes: Ophthalmology Exam 07/30/2020 Diabetes: Pedal Pulse Checked 07/30/2020 Diabetes: Sensory Foot Exam 07/30/2020 Diabetes: Visual Foot Exam 07/30/2020 Diabetes: Hemoglobin A1C 12/30/20242 025, 07/08/2024, 07/26/2023, Additional history exists Pneumococcal Vaccine: 50+ Years Completed 09/25/2018, 08/30/2015, 05/18/2015, Additional history exists Pneumococcal Vaccine: Peds ( 0 to 5 Years) and At-Risk Patients (6 to 49 Years) Discontinued 09/25/2018, 08/30/2015, 05/18/2015, Additional history exists Influenza Vaccine Completed 04/07/2024, , 04/01/2022, Additional history exists Procedures Procedure Name Priority Date/Time Associated Diagnosis Comments HEPATITIS B SURFACE ANTIGEN W/REFL CONFIRM Routine 09/30/2024 3:00 AM EDT HEMOGLOBIN A1C Routine 09/30/2024 3:00 AM EDT TRANSFERRIN SATURATION Routine 3:00 AM EDT PROTEIN, TOTAL, SERUM Routine 09/30/2024 3:00 AM EDT LIPID PANEL Routine 09/30/2024 3:00 AM EDT MAGNESIUM Routine 09/30/2024 3:00 AM EDT ELECTROLYTE PANEL Routine 09/30/2024 3:0 0 AM EDT LACTATE DEHYDROGENASE Routine 09/30/2024 3:00 AM EDT LIH (HC) Routine 09/30/2024 3:00 AM EDT GLUCOSE, RANDOM Routine 09/30/2024 3:00 AM EDT BILIRUBIN, TOTAL Routine 09/30/2024 3:00 AM EDT ALT Routine 09/30/2024 3:00 AM EDT AST Routine 09/30/2024 3:00 AM EDT ALKALINE PHOSPHATASE Routine 09/30/2024 3:00 AM EDT CALCIUM PHOSPHORUS PRODUCT, ADJUSTED (HC) Routine 09/30/2024 3:00 AM EDT PTH, INTACT Routine 09/30/2024 3:00 AM EDT FERRITIN Routine 09/30/2024 3:00 AM EDT GLUCOSE, URINE, 24 HOUR Routine 09/30/2024 3:00 AM EDT CBC AND DIFFERENTIAL Routine 09/30/2024 3:00 AM EDT PD ADEQUECY BUNDLED Routine 09/30/2024 3 :00 AM EDT HEPATITIS B SURFACE ANTIGEN W/REFL CONFIRM Routine 09/01/2024 3:00 AM EST PROTEIN, TOTAL, SERUM Routine 09/01/2024 3:00 AM EST TRANSFERRIN SATURATION Routine 3:00 AM EST MAGNESIUM Routine 09/01/2024 3:00 AM EST ELECTROLYTE PANEL Routine 09/01/2024 3:0 0 AM EST LIH (HC) Routine 09/01/2024 3:00 AM EST LACTATE DEHYDROGENASE Routine 09/01/2024 3:00 AM EST CREATININE, SERUM Routine 09/01/2024 3:0 0 AM EST BUN Routine 09/01/2024 3:00 AM EST GLUCOSE, RANDOM Routine 09/01/2024 3:00 AM EST BILIRUBIN, TOTAL Routine 09/01/2024 3:00 AM EST ALT Routine 09/01/2024 3:00 AM EST AST Routine 09/01/2024 3:00 AM EST CALCIUM PHOSPHORUS PRODUCT, ADJUSTED (HC) Routine 09/01/2024 3:00 AM EST ALKALINE PHOSPHATASE Routine 09/01/2024 3:00 AM EST FERRITIN Routine 09/01/2024 3:00 AM EST PTH, INTACT Routine 09/01/2024 3:00 AM EST CBC AND DIFFERENTIAL Routine 09/01/2024 3:00 AM EST COLLECTION DATE (HC) Routine 09/01/2024 3:00 AM EST TRANSFERRIN SATURATION Routine 3:00 AM EST PROTEIN, TOTAL, SERUM Routine 08/05/2024 3:00 AM EST ELECTROLYTE PANEL Routine 08/05/2024 3:0 0 AM EST LIH (HC) Routine 08/05/2024 3:00 AM EST MAGNESIUM Routine 08/05/2024 3:00 AM EST GLUCOSE, RANDOM Routine 08/05/2024 3:00 AM EST LACTATE DEHYDROGENASE Routine 08/05/2024 3:00 AM EST CREATININE, SERUM Routine 08/05/2024 3:0 0 AM EST BUN Routine 08/05/2024 3:00 AM EST BILIRUBIN, TOTAL Routine 08/05/2024 3:00 AM EST ALT Routine 08/05/2024 3:00 AM EST AST Routine 08/05/2024 3:00 AM EST CALCIUM PHOSPHORUS PRODUCT, ADJUSTED (HC) Routine 08/05/2024 3:00 AM EST ALKALINE PHOSPHATASE Routine 08/05/2024 3:00 AM EST HEPATITIS B SURFACE ANTIGEN W/REFL CONFIRM Routine 08/05/2024 3:00 AM EST FERRITIN Routine 08/05/2024 3:00 AM EST PTH, INTACT Routine 08/05/2024 3:00 AM EST CBC AND DIFFERENTIAL Routine 08/05/2024 3:00 AM EST from Last 3 Months Results * (ABNORMAL) PD Adequecy Bundled (09/30/2024 3:00 AM EDT) Urine Volume 900 mL [facility] Collection Interval, Ur 1,440 min [facility] Total Drain Volume 24 Hr 8,725 mL [facility] Patient Height (FT) 168.9 cm [facility] Dry Weight 73.0 kg [facility] Creatinine, Urine 29 mg/dL [facility] Comment:See 24 Hour Urine Cr eatinine for Reference Range in mg/24hr Urea Nitrogen, Ur 173.7 mg/dL [facility] Comment:See 24 Hour Urine Ur ea Nitrogen for Reference Range in g/24hr Creat, 24 HR Dial 2.24 mg/dL [facility] Onelia Creat, 24 Hr Dial 2.14 mg/dL [facility] Urea Nitrogen, 24HR Dial 39 mg/dL [facility] Creatinine 5.84(H) 0.55 - 1.02 mg/dL [facility] BUN 51(H) 7 - 25 mg/dL [facility] Body Surface Area 1.83 m2 [facility] Comment:Body surface area es timated from Yessy [employer] Yessy formula Total Body Water 36.3 L [facility] Comment:Volume of distributi on estimated from [place] and [place] formula Creatinine renal clearance 2.9(L) 75.0 - 115.0 mL/min/1. 73m2 [facility] Kt/V, Residual 0.59 [facility] Dial KT/V 1.29 [facility] Kt/V, Total 1.88 [facility] Comment: The K/DOQI 2006 recommendations for delivered peritoneal dialysis are: For patients with significant RKF (urine volume >100 mL/day), recommended minimal delivered weekly dose of total (peritoneal and kidney) Kt/V(urea) is greater than or equal to 1.7. For patients without significant RKF (urine volume < or = 100 mL/day), recommended minimal delivered weekly dose of peritoneal Kt/V(urea) is greater than or equal to 1.7. Weekly Residual CrCl 29.6 L/wk/1.73 m2 [facility] Weekly Dialysate CrCl 21.2 L/wk/1.73 m2 [facility] Weekly Residual GFR 24.9 L/wk/1.73 m2 [facility] Comment: Calculated by the arithmetic mean of urea and creatinine clearance(Guideline 6 of KDOQI Adequacy 2000) Weekly Total CRCL 46.1 L/wk/1.73 m2 [facility] Comment:Calculated by adding the GFR and Weekly Dialysate CrCl PNA 52.6 g/day [facility] NPNA (PD) 0.8 g/kg/day [facility] Comment: Providers should strive to achieve an nPNA of greater than or equal to 0.9 g/kg/day. nPNA valid only if protein loss <15 g/day. 09/30/2024 3:00 AM EDT 10/01/2024 12:07 PM EDT us Michel Harp MD LAB BLOOD ORDERABLES Edited Res ult - Final [facility] [address] [place] [address] * [facility] (09/30/2024 3:00 AM EDT) Only the most recent of3 resultswithin the time period is included. Lipemia Normal Normal [facility] Icterus Normal Normal [facility] Hemolysis Normal Normal [facility] 09/30/2024 3:00 AM EDT 10/01/2024 12:12 PM EDT us Michel Harp MD LAB [id number] LICITED RESULTS Final Result Performing Organization Address [facility] de Phone Number [facility] [address] [place] [address] * (ABNORMAL) Calcium Phosphorus Product, Adjusted (09/30/2024 3:00 AM EDT) Only the most recent of3 resultswithin the time period is included. Albumin 4.2 3.6 - 5.4 g/dL [facility] Calcium 8.5(L) 8.6 - 10.3 mg/dL [facility] Phosphorus, Serum 6.6(H) 2.5 - 5.0 mg/dL [facility] Ca*PO4 56.1(A) <55.0 mg2/dL2 [facility] Calcium, Adjusted Total 8.5(L) 8.6 - 10.3 mg/dL [facility] CA*PO4 CORRCTD 56.1(A) <55.0 mg2/dL2 [facility] 09/30/2024 3:00 AM EDT 10/01/2024 12:12 PM EDT us Michel Harp MD LAB [id number] LICITED RESULTS Final Result Performing Organization Address [facility] de Phone Number [facility] [address] [place] [address] * Hepatitis B Surface Ag w/Reflex Confirmation (09/30/2024 3:00 AM EDT) Only the most recent of3 resultswithin the time period is included. Hep B Surface Antigen Negative Negative [facility] 09/30/2024 3:00 AM EDT 10/01/2024 12:12 PM EDT us Michel Harp MD LAB BLOOD ORDERABLES Final Resu lt Performing Organization Address [facility] Co de Phone Number [facility] [address] [place] [address] * (ABNORMAL) TSAT (09/30/2024 3:00 AM EDT) Only the most recent of3 resultswithin the time period is included. [facility] Iron 59 50 - 170 ug/dL [facility] Transferrin 181(L) 250 - 380 mg/dL [facility] TIBC 253 211 - 406 ug/dL [facility] Iron Saturation (TSat) 23 22 - 52 % [facility] 09/30/2024 3:00 AM EDT 10/01/2024 12:12 PM EDT us Michel Harp MD LAB BLOOD ORDERABLES Final Resu lt Performing Organization Address [facility]/ZIP Co de Phone Number [facility] [address] [place] [address] * Glucose, urine, 24 hour (09/30/2024 3:00 AM EDT) [facility] Glucose 24 HR Dial 993 mg/dL [facility] 09/30/2024 3:00 AM EDT 10/01/2024 12:10 PM EDT us Michel Harp MD LAB URINE ORDERABLES Final Resu lt Performing Organization Address [facility] Co de Phone Number [facility] [address] [place] [address] * (ABNORMAL) CBC and Differential (09/30/2024 3:00 AM EDT) Only the most recent of3 resultswithin the time period is included. [facility] DIFFERENTIAL MANUAL, 2 Not Indicated [facility] White Blood Cells 10.2(H) 4.0 - 10.0 K/uL [facility] RBC 3.14(L) 3.93 - 5.22 M/uL [facility] Hgb 10.1(L) 11.2 - 15.7 g/dL [facility] Hemoglobin x 3 30.3(L) 33.6 - 47.1 g/dL [facility] Hematocrit 31.5(L) 34.1 - 44.9 % [facility] MCV 100.3(H) 79.4 - 94.8 fL [facility] MCH 32.2 25.6 - 32.2 pg [facility] MCHC 32.1(L) 32.2 - 35.5 g/dL [facility] Platelets 243 182 - 369 K/uL [facility] RDW 14.9(H) 11.7 - 14.4 % [facility] Neutrophils Relative 71.9(H) 34.0 - 71.1 % [facility] Lymphocytes Relative 12.6(L) 19.3 - 51.7 % [facility] Monocytes 11.9 4.7 - 12.5 % [facility] Eosinophils Relative 2.4 0.7 - 5.8 % [facility] Basophils Relative 0.7 0.1 - 1.2 % [facility] Immature Granulocytes 0.5 0.0 - 1.0 % [facility] 09/30/2024 3:00 AM EDT 10/01/2024 12:11 PM EDT us Michel Harp MD LAB BLOOD ORDERABLES Final Resu lt Performing Organization Address City/[facility]/ZIP Co de Phone Number [facility] [address] [place] [address] * ALT (09/30/2024 3:00 AM EDT) Only the most recent of3 resultswithin the time period is included. ALT (SGPT) 13 10 - 49 U/L [facility] 09/30/2024 3:00 AM EDT 10/01/2024 12:12 PM EDT us Michel Harp MD LAB BLOOD ORDERABLES Final Resu lt Performing Organization Address [facility]/ZIP Co de Phone Number [facility] [address] [place] [address] * AST (09/30/2024 3:00 AM EDT) Only the most recent of3 resultswithin the time period is included. AST (SGOT) 18 <34 U/L [facility] 09/30/2024 3:00 AM EDT 10/01/2024 12:12 PM EDT us Michel Harp MD LAB BLOOD ORDERABLES Final Resu lt Performing Organization Address [facility]/ZIP Co de Phone Number [facility] [address] [place] [address] * Protein, total (09/30/2024 3:00 AM EDT) Only the most recent of3 resultswithin the time period is included. Total Protein 6.5 6.4 - 8.9 g/dL [facility] 09/30/2024 3:00 AM EDT 10/01/2024 12:12 PM EDT us Michel Harp MD LAB BLOOD ORDERABLES Final Resu lt Performing Organization Address [facility] Co de Phone Number [facility] [address] [place] [address] * Alkaline phosphatase (09/30/2024 3:00 AM EDT) Only the most recent of3 resultswithin the time period is included. Alkaline Phosphatase 87 46 - 116 U/L [facility] 09/30/2024 3:00 AM EDT 10/01/2024 12:12 PM EDT Result Sommer Harp MD LAB BLOOD ORDERABLES Final Resu lt Performing Organization Address [facility] de Phone Number [facility] [address] [place] [address] * (ABNORMAL) PTH, Intact (09/30/2024 3:00 AM EDT) Only the most recent of3 resultswithin the time period is included. PTH, Intact 20(L) 160 - 721 pg/mL [facility] Comment: Suggested (KDIGO) ESRD maintenance range is two to nine times the upper normal limit (80.1 pg/mL) for the laboratory. 09/30/2024 3:00 AM EDT 10/01/2024 12:12 PM EDT us Michel Hapr MD LAB BLOOD ORDERABLES Final Resu lt Performing Organization Address [facility] de Phone Number [facility] [address] [place] [address] * Magnesium (09/30/2024 3:00 AM EDT) Only the most recent of3 resultswithin the time period is included. Magnesium 2.3 1.9 - 2.7 mg/dL [facility] 09/30/2024 3:00 AM EDT 10/01/2024 12:12 PM EDT Michel Harp MD LAB BLOOD ORDERABLES Final Resu lt Performing Organization Address [facility] de Phone Number [facility] [address] [place] [address] * Lactate dehydrogenase (09/30/2024 3:00 AM EDT) Only the most recent of3 resultswithin the time period is included. LDH 217 120 - 246 U/L [facility] 09/30/2024 3:00 AM EDT 10/01/2024 12:12 PM EDT Michel Harp MD LAB BLOOD ORDERABLES Final Resu lt Performing Organization Address [facility] de Phone Number [facility] [address] [place] [address] * Hemoglobin A1c (09/30/2024 3:00 AM EDT) Hemoglobin A1C 5.3 <5.7 % [facility] Comment: Methodology: Enzymatic HbA1c (NGSP %) ?Suggested Diagnosis >6.4% ? Diabetic 5.7-6.4% ?Pre-Diabetic <5.7% ? Non-Diabetic Diabetic Glucose Control Evaluation: Therapeutic action suggested at >8.0% ADA recommends a glycemic goal of <7.0% 09/30/2024 3:00 AM EDT 10/01/2024 12:11 PM EDT us Michel Harp MD LAB BLOOD ORDERABLES Final Resu lt Performing Organization Address [facility] de Phone Number [facility] [address] [place] [address] * Glucose, random (09/30/2024 3:00 AM EDT) Only the most recent of3 resultswithin the time period is included. Glucose 92 74 - 109 mg/dL [facility] 09/30/2024 3:00 AM EDT 10/01/2024 12:12 PM EDT us Michel Harp MD LAB BLOOD ORDERABLES Final Resu lt Performing Organization Address [facility] de Phone Number [facility] [address] [place] [address] * (ABNORMAL) Ferritin (09/30/2024 3:00 AM EDT) Only the most recent of3 resultswithin the time period is included. Ferritin 572(H) 10 - 291 ng/mL [facility] 09/30/2024 3:00 AM EDT 10/01/2024 12:12 PM EDT us Michel Harp MD LAB BLOOD ORDERABLES Final Resu lt Performing Organization Address [facility] de Phone Number [facility] [address] [place] [address] * Bilirubin, total (09/30/2024 3:00 AM EDT) Only the most recent of3 resultswithin the time period is included. Total Bilirubin 0.4 0.3 - 1.2 mg/dL [facility] 09/30/2024 3:00 AM EDT 10/01/2024 12:12 PM EDT us Michel Harp MD LAB BLOOD ORDERABLES Final Resu lt Performing Organization Address [facility]/ZIP Co de Phone Number [facility] [address] [place] [address] * (ABNORMAL) Lipid panel (09/30/2024 3:00 AM EDT) Cholesterol 120 <200 mg/dL [facility] Comment: Optimal: ?<200 Borderline: ? 200-239 Higher Risk: ?>239 Triglycerides 277(A) <150 mg/dL [facility] Comment: Optimal: ?<150 Borderline High: ??150-199 High: ? 200-499 Very High: ?>499 HDL 28(A) >59 mg/dL [facility] Comment: Desirable: ?>59 Higher Risk: ?<40 LDL-Calc 37 <100 mg/dL [facility] Comment: Optimal: ?<100 Above Optimal: ?100-129 Borderline High: ??130-159 High: ? 160-189 Very High: ?>189 VLDL Cholesterol Eddie 55(A) <30 mg/dL [facility] Comment: Optimal: ?<30 Borderline High: ??30-39 High: ? 40-99 Very High: ?>99 Chol/HDL Ratio 4.3(A) <3.3 [facility] Comment: Optimal: ?<3.3 Higher Risk: ?>6.2 09/30/2024 3:00 AM EDT 10/01/2024 12:12 PM EDT us Michel Harp MD LAB BLOOD ORDERABLES Final Resu lt Performing Organization Address [facility] de Phone Number [facility] [address] [place] [address] * Electrolyte panel (09/30/2024 3:00 AM EDT) Only the most recent of3 resultswithin the time period is included. Sodium 137 136 - 145 mEq/L [facility] Potassium 4.4 3.4 - 5.0 mEq/L [facility] Chloride 104 98 - 107 mEq/L [facility] Bicarbonate (CO2) 21 21 - 31 mEq/L [facility] Anion Gap 12 3 - 14 mEq/L [facility] 09/30/2024 3:00 AM EDT 10/01/2024 12:12 PM EDT us Michel Harp MD LAB BLOOD ORDERABLES Final Resu lt Performing Organization Address [facility] de Phone Number [facility] [address] [place] [address] * Collection Date (09/01/2024 3:00 AM EST) Collection Date See Comment [facility] Comment: Patient sample received may exceed specimen stability, based on the collection date electronically provided. ??When reviewing patient results, verify collection information and consider specimen stability before acting on any critical or panic results. 09/01/2024 3:00 AM EST us Michel Harp MD LAB [id number] LICITED RESULTS Final Result Performing Organization Address [facility] de Phone Number [facility] [address] [place] [address] * (ABNORMAL) BUN (09/01/2024 3:00 AM EST) Only the most recent of2 resultswithin the time period is included. BUN 44(H) 7 - 25 mg/dL [facility] 09/01/2024 3:00 AM EST 09/04/2024 12:25 PM EST us Michel Harp MD LAB BLOOD ORDERABLES Final Resu lt Performing Organization Address [facility] Co de Phone Number [facility] [address] [place] [address] * (ABNORMAL) Creatinine, serum (09/01/2024 3:00 AM EST) Only the most recent of2 resultswithin the time period is included. Creatinine 5.60(H) 0.55 - 1.02 mg/dL [facility] 09/01/2024 3:00 AM EST 09/04/2024 12:25 PM EST us Mcihel Harp MD LAB BLOOD ORDERABLES Final Resu lt [facility] [address] [place] [address] from Last 3 Months Insurance Medicare [id number] Medicare
--- OUTSIDE RECORDS SUMMARY | 2024-10-13 14:59 | XMS_ITS | Patient Health Record ---
Author Organization [facility] [place]ome[place] Address [address] [place] [address] Care Team Providers Care Kaiako Kura [place] Ma[place] Name Role Phone Chris Stokes MD Primary Care Provider Unavaila Mallorie Williamson Unavailable [phone] Allergies No Known Allergies Reason For Referral No Information Medications Medication SIG (Take, Route, Frequency, Duration) Notes Start Date End Date Status Rosuvastatin Calcium 40 MG 1 tablet Orally Once a day for 30 day(s) Not-Taking Trulicity 1.5 MG/0.5ML as directed Subcutaneous Not-Taking Aspir-81 81 MG 1 tablet Orally Once a day for 30 day(s) Not-Taking Benzonatate 100 MG 1 capsule as needed Orally Three times a day Not-Taking Super B Complex Not- Taking Extra-Depth Diabetic Shoes with 3 Pair Custom heat-molded multi-density innersoles . for 1 year . Dx:sneha mota . 01/11/2015 Not-Taking Clopidogrel Bisulfate 75 MG 1 tablet Orally Once a day for 30 day(s) Not-Taking amLODIPine Besylate 10 MG Orally Not-Taking Ensure Plus PRN Not-Taki ng Vitamin E Not-Taking Fenofibrate Not-Taki ng Docusate Sodium Not- Taking Crestor 10 MG 1 tablet Orally Once a day for 30 day(s) Not-Taking metFORMIN HCl 500 MG 1 tablet with meals Orally Twice a day Not-Taking Clopidogrel Bisulfate 75 MG 1 tablet Orally Once a day Active Calcium Not-Taking Insulin Not-Taking Byetta 10 MCG Pen No t-Taking Plavix 75 MG Orally Not-Babar ing Extra Depth Orthopedic Shoes (1 Pair) with Customized Heat Molded Multidensity Innersoles (3 Pair) as directed Dx: NIDDM/Polyneuropathy (E11.42), Hammertoe Foot Deformity (M20.41,M20.42), Preulcerative Skin Lesion(s) (L85.1 07/24/2024 Active Plavix 75 MG 1 tablet Orally Once a day Not-Taking traZODone HCl 50 MG Orally Not-Taking Turmeric Not-Taking Cholecalciferol Acti ve Physical Therapy 3-4x per week for 3- 4 weeks 04/03/2016 Not-Taking Night Splint AFO - L1930 as directed 04/03/2016 Not-Taking glipiZIDE 2.5 mg Not -Taking Fish Oil 1000 MG 1 capsule Orally Onc e a day Not-Taking Vitamin B12 Active glyBURIDE 5 MG 1 tablet Orally Once a day for 30 day(s) Not-Taking Magnesium Oxide 250 MG as directed Orally Active Amlodipine & Diet Manage Prod Not-Taking Lipitor 80 MG 1 tablet Orally Once a day for 30 day(s) Active Lisinopril 40 MG 1 tablet Orally Once a day for 30 day(s) Not-Taking Metoprolol-HCTZ ER A ctive Dexilant 60 MG 1 capsule Orally Onc e a day for 30 day(s) Not-Taking Multivitamin Not-Babar ing amLODIPine Benzoate Active Atorvastatin Calcium Active Calcitriol Active Zantac 150 MG 1 tablet at bedtime Orally Once a day Not-Taking Calcium Active tiZANidine HCl 4 MG Orally bid for 3 days Not-Taking januvia Active Plavix 75 MG 1 tablet Orally Once a day Active Pantoprazole Sodium 40 MG Orally Active Oyster Shell Calcium + D Active Lasix Active Biofreeze Cool The Pain 4 % 1 application as needed Externally Three times a day Active Anastrozole 1 MG Orally Act sung Ammonium Lactate 12 % 1 application Externally Twice a day for 30 days Active Metoprolol & Diet Manage Prod 50 oral once a day Active Ascorbic Acid Active Furosemide 20 MG 1 tablet Orally Once a day for 30 day(s) PLUS 80 Active Acetaminophen 325 MG 1 tablet as needed Orally every 4 hrs Active Vitamin D3 Active Januvia 25 MG Orally Not-Ta mary anne Vitamin C Active Immunizations Vaccine Route Administration Date Status Comme nts COVID-19 Moderna Vaccine Unknown 09/27/2020 Administere d First Dose: 08/30/2020 Influenza Unknown 08/30/2015 Administered Influenza Unknown 04/12/2016 Administered Influenza Unknown 03/26/2017 Administered Influenza Unknown 04/28/2019 Administered Influenza Unknown 04/01/2020 Administered Influenza Unknown 04/01/2022 Administered Influenza Unknown 04/02/2023 Administered Pneumococcal Unknown 08/30/2015 Administered Social History Tobacco Use: Social History Observation Description Date Details (start date - stop date) Never Smoker NA - NA Alcohol Screen Question Answer Notes Did you have a drink containing alcohol in the p ast year? No Points 0 Interpretation Negative Tobacco use other than smoking: Question Answer Notes Are you an other tobacco user? No Tobacco Control (Standard) Question Answer Notes Tobacco use: Nonsmoker Problems Problem Type SNOMED Code ICD Code Onset Dates Problem Status W/U Status Risk Notes Problem Acquired hammer toe of left foot (8944113843600878) Other hammer toe(s) (acquired), left foot (M20.42) Active confirmed Problem Acquired hammer toe of right foot (3791078852901269) Other hammer toe(s) (acquired), right foot (M20.41) Active confirmed Problem Polyneuropathy due to type 2 diabetes mellitus (134707837) Type 2 diabetes mellitus with diabetic polyneuropathy (E11.42) Active confirmed Problem Hallux valgus of right foot (1426684713) Hallux valgus of right foot (M20.11) Active confirmed Problem Hallux valgus of left foot (5987714945) Hallux valgus of left foot (M20.12) Active confirmed Problem Mononeuropathy of lower limb (722884034) Neuritis of left foot (G57.92) Active confirmed Problem Osteoarthritis of right foot (8878694749136373) Osteoarthritis of right ankle and foot (M19.071) Active confirmed Problem Ulcer of heel due to atherosclerosis of nome artery of limb (309980130943168) Ulcer of right heel and midfoot, limited to breakdown of skin (L97.411) Active confirmed Vital Signs Blood pressure diastolic 68 mm Hg 07/24/2024 Height 5 ft 6.5in in 07/24/2024 Blood pressure systolic 108 mm Hg 07/24/2024 Weight 162 lbs 07/24/2024 BMI 25.75 kg/m2 07/24/2024 Procedures Procedure Date Ordered Date Performed Result Body Sit e 42028-KVVOPCD NAIL, 6 OR MORE 12/10/2023 N/A 30288-AIXZ SKIN LESIONS, 2 TO 4 12/10/2023 N/A 36322-PAAMEIA NAIL, 6 OR MORE 07/24/2024 N/A 18213-Odmriuxk Plate 07/24/2024 N/A 94673-YGHK SKIN LESIONS, 2 TO 4 07/24/2024 N/A Encounters Encounter Location Date Provider Diagnosis [address] [address] 12/10/2023 Mallorie Campos Type 2 diabetes mellitus with diabetic polyneuropathy E11.42 ; Neuritis of left foot G57.92 ; Tinea unguium B35.1 ; Xerosis of skin L85.3 and Pain in left foot M79.[address] [address] 07/24/2024 Mallorie Cmapos Type 2 diabetes mellitus with diabetic polyneuropathy E11.42 ; Other hammer toe(s) (acquired), right foot M20.41 ; Tinea unguium B35.1 ; Pain in left foot M79.672 ; Other hammer toe(s) (acquired), left foot M20.42 ; Ingrown nail L60.0 ; Hallux valgus of right foot M20.11 and Hallux valgus of left foot M20.[address] [address] 03/24/2024 Mallorie Campos Assessments Encounter Date Diagnosis (ICD Code) Assessment Notes Treatment Notes Treatment Clinical Notes Section Notes 12/10/2023 Type 2 diabetes mellitus with diabetic polyneuropathy (ICD-10 - E11.42) 12/10/2023 Neuritis of left foot (ICD-10 - G57.92) 07/24/2024 Other hammer toe(s) (acquired), right foot (ICD-10 - M20.41) Patient Educated with: DIABETIC FOOT CARE INSTRUCTIONS. pdf (DIABETIC FOOT CARE INSTRUCTIONS. pdf) 07/24/2024 Type 2 diabetes mellitus with diabetic polyneuropathy (ICD-10 - E11.42) 12/10/2023 Tinea unguium (ICD-10 - B35.1) 07/24/2024 Tinea unguium (ICD-10 - B35.1) 12/10/2023 Xerosis of skin (ICD-10 - L85.3) 07/24/2024 Pain in left foot (ICD-10 - M79.672) 07/24/2024 Other hammer toe(s) (acquired), left foot (ICD-10 - M20.42) 12/10/2023 Pain in left foot (ICD-10 - M79.672) 07/24/2024 Ingrown nail (ICD-10 - L60.0) 07/24/2024 Hallux valgus of right foot (ICD-10 - M20.11) 07/24/2024 Hallux valgus of left foot (ICD-10 - M20.12) Plan Of Treatment Pending Test Test Name Order Date X ray : Foot, right 3V 03/17/2013 20912-QDEWUEG NAIL, 6 OR MORE 03/17/2013 80868-JIDPWOT NAIL, 6 OR MORE 06/04/2013 09520-LYCTJWA NAIL, 6 OR MORE 09/03/2013 24843-FOBFYOD NAIL, 6 OR MORE 12/08/2013 71844-YGXZMRK NAIL, 6 OR MORE 05/25/2014 05358-QVIPSCB NAIL, 6 OR MORE 08/12/2014 30722-YTRPBCY NAIL, 6 OR MORE 10/22/2014 56176-RMEVDUI NAIL, 6 OR MORE 01/11/2015 86042-SGGHTKP NAIL, 6 OR MORE 03/12/2014 18249-OSSICBD NAIL, 6 OR MORE 04/05/2015 82514-CFUDDEH NAIL, 6 OR MORE 10/02/2016 75434-DIRCONH NAIL, 6 OR MORE 12/25/2016 73341-HANCQDU NAIL, 6 OR MORE 03/19/2017 75093-RWHNSKN NAIL, 6 OR MORE 06/11/2017 02995-TKPFQUG NAIL, 6 OR MORE 09/03/2017 03790-BLEEGMS NAIL, 6 OR MORE 11/19/2017 31614-QNSMBLZ NAIL, 6 OR MORE 02/11/2018 88428-QULXGWW NAIL, 6 OR MORE 05/13/2018 25967-FUUCTGH NAIL, 6 OR MORE 08/05/2018 55670-ADVNIGI NAIL, 6 OR MORE 10/28/2018 83329-YVLQUEZ NAIL, 6 OR MORE 01/20/2019 90079-BVRXEFS NAIL, 6 OR MORE 04/17/2019 26749-TQGIJOK NAIL, 6 OR MORE 07/10/2019 35357-VLGFRLC NAIL, 6 OR MORE 02/09/2020 68568-OSCVXGI NAIL, 6 OR MORE 05/17/2020 35264-AKFSKVU NAIL, 6 OR MORE 08/23/2020 35088-ZPBFTWO NAIL, 6 OR MORE 11/22/2020 99426-QINUFKP NAIL, 6 OR MORE 05/19/2021 56705-OXNGSXI NAIL, 6 OR MORE 09/01/2021 27642-TQCGYDO NAIL, 6 OR MORE 02/27/2022 48148-ZQQGCYA NAIL, 6 OR MORE 06/13/2022 51098-PQXJGUN NAIL, 6 OR MORE 11/21/2021 52965-QXVCETU NAIL, 6 OR MORE 11/06/2022 65668-LWQREEV NAIL, 6 OR MORE 02/05/2023 94252-TNVWHCJ NAIL, 6 OR MORE 05/14/2023 50164-APAUZGO NAIL, 6 OR MORE 08/27/2023 40186-UXURVOG NAIL, 6 OR MORE 12/10/2023 75542-RIAEBAH NAIL, 6 OR MORE 07/24/2024 09759-Ozrfehgo Plate 07/24/2024 69216-Vosswzal Plate 04/05/2015 40434-Ckzhbcil Plate 03/12/2014 89571-Feghrrux Plate 01/11/2015 66127-Sihnwhte Plate 10/22/2014 75878-Bivfrlsn Plate 08/12/2014 77779-Pffuygwd Plate 05/25/2014 23356-Jxmkwdlz Plate 12/08/2013 17356-Bknnfjyu Plate 09/03/2013 65024-Tjbvteam Plate Each Additional 10/2013 58549-Abydfrgm Plate Each Additional 03/2014 42635-Ozpmdnbk Plate Each Additional 41064-Htiryypk Plate Each Additional 05/2015 26072-Vbzxynxo Plate Each Additional 58773-Jjlfmjnr Plate Each Additional 29161-Ztktdfvs Plate Each Additional 10/2014 92295-Szuyvuuy Plate Each Additional 05/2014 08826-LUGX SKIN LESIONS, OVER 4 06/17/20 15 26920-MDFX SKIN LESIONS, OVER 4 08/30/19 16 79208-YPUF SKIN LESIONS, OVER 4 11/22/19 16 58640-JREQ SKIN LESIONS, OVER 4 02/02/20 16 84439-IIWF SKIN LESIONS, OVER 4 04/13/20 16 34102-QFCH SKIN LESIONS, OVER 4 07/10/19 17 14953-WBND SKIN LESIONS, 2 TO 4 04/05/20 15 68868-XJJK SKIN LESIONS, 2 TO 4 10/03/19 17 46469-QDJL SKIN LESIONS, 2 TO 4 12/26/19 17 98469-QZIG SKIN LESIONS, 2 TO 4 06/11/20 17 57030-MXVE SKIN LESIONS, 2 TO 4 03/19/20 17 47420-GBZF SKIN LESIONS, 2 TO 4 05/13/20 18 93706-VOKK SKIN LESIONS, 2 TO 4 02/12/20 18 48824-WWGB SKIN LESIONS, 2 TO 4 09/04/19 18 33191-VZGN SKIN LESIONS, 2 TO 4 11/20/19 18 78052-YWVT SKIN LESIONS, 2 TO 4 03/12/20 14 30360-URIB SKIN LESIONS, 2 TO 4 01/12/20 15 17458-SEQP SKIN LESIONS, 2 TO 4 10/23/19 15 31685-OMGT SKIN LESIONS, 2 TO 4 08/12/19 15 18176-RTZS SKIN LESIONS, 2 TO 4 05/25/20 14 38879-DXQP SKIN LESIONS, 2 TO 4 12/09/19 14 31095-WFSQ SKIN LESIONS, 2 TO 4 09/04/19 14 85163-YLMH SKIN LESIONS, 2 TO 4 06/04/20 13 62177-ISUF SKIN LESIONS, 2 TO 4 03/17/20 13 17150-PSUM SKIN LESIONS, 2 TO 4 07/24/19 25 46612-MNXS SKIN LESIONS, 2 TO 4 12/10/19 24 41185-THEM SKIN LESIONS, 2 TO 4 08/27/19 24 01269-APJP SKIN LESIONS, 2 TO 4 05/14/20 23 62548-KRJC SKIN LESIONS, 2 TO 4 02/06/20 23 51432-XMHW SKIN LESIONS, 2 TO 4 02/28/20 22 89282-NIBI SKIN LESIONS, 2 TO 4 06/13/20 22 78909-VVVK SKIN LESIONS, 2 TO 4 11/07/19 23 14686-HKPP SKIN LESIONS, 2 TO 4 11/22/19 22 08883-JAAK SKIN LESIONS, 2 TO 4 09/02/19 22 52259-BPCY SKIN LESIONS, 2 TO 4 05/19/20 21 97727-RQLC SKIN LESIONS, 2 TO 4 11/23/19 21 12048-PWET SKIN LESIONS, 2 TO 4 08/23/19 21 30639-OUCB SKIN LESIONS, 2 TO 4 05/17/20 20 68994-JBKV SKIN LESIONS, 2 TO 4 02/09/20 20 51329-CTAU SKIN LESIONS, 2 TO 4 07/10/19 20 22125-NETI SKIN LESIONS, 2 TO 4 04/17/20 19 77149-VYXG SKIN LESIONS, 2 TO 4 01/21/20 19 01479-TTSN SKIN LESIONS, 2 TO 4 10/29/19 19 21318-OUXD SKIN LESIONS, 2 TO 4 08/05/19 19 E3434-SQHJOGZW DYSTROPHIC NAILS ANY # F0908-RAUWZECH DYSTROPHIC NAILS ANY # B5822-QJCUKAEF DYSTROPHIC NAILS ANY # O4186-YXCELXHE DYSTROPHIC NAILS ANY # W9198-IOHCCHYW DYSTROPHIC NAILS ANY # V9673-SQVKFGNL DYSTROPHIC NAILS ANY # 15309,V8415-PPV TENDON SHEATH/LIGAMENT 0 02/02/2016 59469,O9855-CNM TENDON SHEATH/LIGAMENT 1 57487,Z0066-YPD TENDON SHEATH/LIGAMENT 0 12/27/2015 Next Appt Details Provider Name:Mallorie Campos , 10/23/2024 03:00:00 PM, [address] [place] [address], [address], Insurance Providers Payer Name Payer Address Payer Phone Subscriber Number Group Number Insured Name Patient Relationship to Insured Coverage Start Date Coverage End Date [employer] Medicare Adv-[id number] [address] [address] [place] [address] [phone] [id number] Paulette Martínez Self - patient is the insured Medical (General) History Medical History History ICD Code cholesterol diabetic type ll diverticulosis neuropathy high blood pressure psoriasis/eczema reflux measles cervical cancer Surgical History Surgery Date(Month/Year) skin cancer 1968 gall bladder 1983 varicose vein stripping 1970 bladder cancer 1993 abdominal aortic aneurysm repair 2000 lumpectomy, right breast 04/2017 double bypass 08/2018 right breast removed 08/03/2020 Eye Surgery -right 10/07/2020 Hospitalization History Reason Date(Month/Year) [facility] [place]- trouble breathing 09/2022 [facility]- fell, 1 week stay, went to rehab 2022 [facility] [place]- Stent put in leading to kidney 04/02 08/21 [facility] for breast exam results breast cance r 04/2017 Admitted to [facility] x5 days;pnom onia 02/23/2015-02/23/2015
== END 2024-10-13 13:57 | disposition home or self-care (01) ==
PROVIDERS: PCP Physician Assistant Surgical; Visit Provider Internal Medicine Cardiovascular Disease
DX: I35.0 Nonrheumatic aortic (valve) stenosis (principal); R09.89 Other specified symptoms and signs involving the circulatory and respiratory systems; I10 Essential (primary) hypertension
CPT/HCPCS: 93010; 99214

== ENCOUNTER → 2024-10-13 13:04 | Outpatient (BNVA) | payer MEDICARE, SELFPAY | PROVIDERS: PCP Physician Assistant Surgical; Visit Provider Internal Medicine Cardiovascular Disease | DX: I35.0 Nonrheumatic aortic (valve) stenosis (principal); I10 Essential (primary) hypertension; R09.89 Other specified symptoms and signs involving the circulatory and respiratory systems; Z87.891 Personal history of nicotine dependence | CPT/HCPCS: 93005; 99212 ==

== ENCOUNTER → 2024-11-26 09:49 | Outpatient (REF) | payer MEDICARE, SELFPAY ==
--- NOTE | ~2024-11-26 | US_ITS ---
EXAMINATION: BILATERAL CAROTID ULTRASOUND WITH DOPPLER HISTORY: R09.89 - Other specified symptoms and signs involving the circulatory an... COMPARISON: Comparison is made with the prior examination dated 05/01/2023. TECHNIQUE: Real time and Color and Spectral doppler ultrasonography of the carotid and vertebral arteries was performed in multiple planes. FINDINGS: There is a moderate amount of plaque in the proximal right internal carotid artery and a large amount of plaque on the left. VERTEBRAL FLOW DIRECTION: Antegrade bilaterally. 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 Electronically signed by: Carlyle Leblanc MD 11/26/2024 12:39 PM EDT
--- NOTE | 2024-11-26 10:15 | CA_ITS ---
Transthoracic Echocardiogram Patient (Last, First, Middle): Paulette Martínez L Gender: Female Date of : 1935 Age: 89 Procedure Date: 11/26/2024 Procedure Type: Transthoracic Echocardiogram Location: OP Height: 167.64 cm Weight: 72.58 kg BSA: 1.82 m2 Heart Rate: bpm BP: 126 / 76 mmHg Assistant Press Operator: YAZAN Referring MD: Juan Padron MD Corduroy Brusher Operator: Juan Padron MD Symptoms: I35.0 - Nonrheumatic aortic (valve) stenosis Study Quality: Fair, contrast Conclusions: - Normal left ventricular cavity size. There is severely increased left ventricular wall thickness. The left ventricular systolic function is hyperdynamic. The visually estimated ejection fraction is >70%. - Normal right ventricular cavity size. There is low normal right ventricular systolic function. - The left atrium is severely dilated. - There is moderate calcification of the aortic valve. - There is severe mitral annular calcification. Findings Procedure Information Contrast agent, definity, is being given per protocol without apparent complications. Left Ventricle Normal left ventricular cavity size. There is severely increased left ventricular wall thickness. The left ventricular systolic function is hyperdynamic. The visually estimated ejection fraction is >70%. There is no evidence of regional wall motion abnormalities. Diastolic function is indeterminate on the basis of available data. Right Ventricle Normal right ventricular cavity size. There is low normal right ventricular systolic function. Atria The left atrium is severely dilated. The right atrium is normal in size. Aortic Valve There is a normal trileaflet aortic valve. There is moderate calcification of the aortic valve. There is no aortic valve stenosis. There is no aortic valve regurgitation. Mitral Valve There is severe mitral annular calcification. There is trace mitral valve regurgitation. There is no mitral valve stenosis. Pulmonic Valve The pulmonic valve is normal. There is trace pulmonic valve regurgitation. Tricuspid Valve Normal tricuspid valve structure. There is trace tricuspid valve regurgitation. Normal right atrial pressure. There is no evidence of pulmonary hypertension. Great Vessels All visible segments of the aorta are normal in size. Venous The inferior vena cava is normal in size and collapses greater than 50% with inspiration. Pericardium/Pleural There is no evidence of pericardial effusion. Prior Study Comparison No significant change compared to prior study dated: 12/25/2022. Measurements 2D Linear Measurements IVSd: 1.82 0.6-0.9/0.6-1.0 cm LVIDd: 3.22 3.9-5.3/4.2-5.9 cm LVIDd Index: 1.77 2.4-3.2/2.2-3.1 cm/m2 LVIDs: 2.25 2.0-3.6 cm LVPWd: 1.66 0.7-1.1 cm LA Diam: 3.30 2.7-3.8/3.0-4.0 cm LAIDs Index: 1.81 1.5-2.3 cm/m2 LV Mass: 278.07 67-162/88-224 g LV Mass Index: 152.79 43-95/49-115 g/m2 LVOT Diam: 2.20 3.0+(-)1.3 cm 2D Systolic Function EF 4C: 68.30 >55% EF 2C: 71.10 >55% EF BiP: 69.50 >55% Mitral Valve MV VTI: 0.47 MV Pk Ozzie: 1.63 MV Mn Ozzie: 0.99 MV Pk Grad: 11.00 MV Mn Grad: 4.00 MV Pk E: 1.32 MV PK A: 1.41 MV Decel Time: 359.00 E/A: 0.90 E'Lateral: 4.90 E'Medial: 2.72 E/E' Med: 48.50 E/E' Lat: 26.90 PHT: 105.00 MVA PHT: 2.10 MVA Continuity: 1.79 Decel [place]: 3.69 Aortic Valve AoV Pk Ozzie: 1.85 AoV Mn Ozzie: 1.38 AoV VTI: 0.48 AoV Pk Grad: 14.00 Aov Mn Grad: 8.00 BRAULIO Cont.VTI: 1.73 LVOT LVOT Pk Ozzie: 0.82 LVOT Mn Ozzie: 0.61 LVOT VTI: 0.22 LVOT Pk Grad: 3.00 LVOT Mn Grad: 2.00 LVOT Diam: 2.20 LVOT Area: 3.80 Diastolic Function MV Pk E: 1.32 MV Pk A: 1.41 E/A: 0.90 E'Medial: 2.72 E/E' Med: 48.50 E' Laterial: 4.90 E/E' Lat: 26.90 Right Ventricle TAPSE (mm): 17.00 TVS' Ozzie: 7.29 Tricuspid Valve TR Pk Ozzie: 2.76 TR Pk Grad: 30.00 RA Press: 3.00 RVSP: 33.00 Great Vessels Aorta Sinus of Valsalva: 3.10 2.0-3.[address] [place]: 2.61 1.7-3.4 cm Ao Asc: 3.50 2.1-3.4 cm Updated in Other Vendor System with Status of Final Juan Padron MD electronically signed on 11/27/2024 9:33:45 PM with status of Final
--- OUTSIDE RECORDS SUMMARY | 2024-11-26 10:37 | XMS_ITS ---
[facility] Organization [facility] [place] Address [address] [place] [address] Care Team Providers Care Buncher Machine Name Role Phone Chris Stokes MD Primary Care Provider Sergio CamposCassandrae Unavailable [phone] Allergies No Known Allergies REASON FOR VISIT [...] Problem Acquired hammer toe of left foot (9687790114525 103) Other hammer toe(s) (acquired), left foot (M20.42) Active confirmed Problem Hallux valgus of right foot (9890245157) Hallux valgus of right foot (M20.11) Active confirmed Problem Hallux valgus of left foot (3208932738) Hallux valgus of left foot (M20.12) Active confirmed Vital Signs Height 5 ft 6.5in in 07/24/2024 Weight 162 lbs 07/24/2024 BMI 25.75 kg/m2 07/24/2024 Blood pressure systolic 108 mm Hg 07/24/19 25 Blood pressure diastolic 68 mm Hg 025 Procedures Procedure Date Ordered Date Performed Result Body Sit e 60682-KKYRSPW NAIL, 6 OR MORE 07/24/2024 N/A 64588-Ttzmhaqv Plate 07/24/2024 N/A 39014-RVZH SKIN LESIONS, 2 TO 4 07/24/2024 N/A Encounters Encounter Location Date Provider Diagnosis [facility] [address] [place] [address] 07/24/2024 Mallorie Black Type 2 diabetes mellitus [...] INSTRUCTIONS.pdf) Pending Test Test Name Order Date 77878-ADVQNWB NAIL, 6 OR MORE 07/24/2024 78437-Vnrgdhdf Plate 07/24/2024 21870-HKEM SKIN LESIONS, 2 TO 4 07/24/19 25 Next Appt Details Follow Up: 2 Weeks,prn, Reas on: Provider Name:Mallorie Campos , 02/02/2025 03:00:00 PM, [address] [place], [address], Procedure Notes * Category Sub-Category [...] Motrin was recommended for pain or discomfort (79316), DIABETES: Matricectomy deferred at this time due [...] as necessary. Patient chooses, no pharmaceutical tx (61597) Keratoma Treatment Parring or Cutting o f Benign Hyperkeratotic Lesion(s) 21287 (2-4 Lesions) - The Benign hyperkeratotic lesions, as described above were pared, and/or cut utilizing a sterile #15 blade, tissue nippers, and/or dremel Progress Notes * Paulette GARCIAS LDOB: 5 (89 yo F)Acc No.[id number]:07/24/2024 Progress Note Patient:Paulette PASTRANA Provider:?Mallorie Campos DPM :1935???Age:89 Y???Sex:Female D ate:07/24/2024 Address:[address] [place], [place] [id number] Pcp:Chris Stokes MD Subjective: * Chief Complaints: [...] 10/07/2020 * Hospitalization/Major Diagno stic Procedure:?Admitted to [facility] x5 days;pnomonia 02/23/2015-02/23/[place] [place] exam results breast cancer 04/2017[facility] [place] Stent put in leading to kidney 04/22/20[facility]- fell, 1 week stay, went to rehab 08/2022[facility] trouble breathing 09/2022 * Family History:?Mother: dece [...] yes, walking. ?Marital status: . 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 * Medications:?TakingClopidogr el Bisulfate 75 MG Tablet [...] 2.?Type 2 diabetes mellitus with diabetic polyneuropathy?Procedure: 71370-DWAQ SKIN LESIONS, 2 TO 4 3.?Tinea unguium?Procedure: 26377-WMSQMAC NAIL, 6 OR MORE 4.?Ingrown nail?Procedure: 72905-Bfrkrvyq Plate 5.?Others? Start Ammonium Lactate Cream, 12 [...] as necessary. Patient chooses, no pharmaceutical tx (56490).?Keratoma Treatment:?Parring or Cutting of Benign Hyperkeratotic Lesion(s)?18827 (2-4 Lesions) - The Benign hyperkeratotic lesions, [...] Motrin was recommended for pain or discomfort (61658), DIABETES: Matricectomy deferred at this time due to diabetes risk.? * Procedure Codes:?78043 Avuls ion Plate, Modifiers: T5 07362 DEBRIDE NAIL, 6 OR MORE, Modifiers: XS 08310 TRIM SKIN LESIONS, 2 TO 4, Modifiers: [...] Campos DPM Date:?2024 Generated for Leighann jeffers/Rip/eTransmitting on:?11/26/2024 10:36 AM EDT History and Physical Notes * HPI [...]
== END ==
LOC: HO.CARD 09:49
PROVIDERS: PCP Physician Assistant Surgical; Visit Provider Internal Medicine Cardiovascular Disease
DX: I35.0 Nonrheumatic aortic (valve) stenosis (principal); R09.89 Other specified symptoms and signs involving the circulatory and respiratory systems
CPT/HCPCS: 93306; 93880; Q9957

== ENCOUNTER → 2024-11-26 10:15 | Outpatient (BNV) | payer MEDICARE, SELFPAY | PROVIDERS: PCP Physician Assistant Surgical; Visit Provider Internal Medicine Cardiovascular Disease | DX: I51.7 Cardiomegaly (principal); I35.8 Other nonrheumatic aortic valve disorders; I34.81 Nonrheumatic mitral (valve) annulus calcification | CPT/HCPCS: 93306 ==

== ENCOUNTER → 2024-11-26 11:33 | Outpatient (BNV) | payer MEDICARE, SELFPAY | PROVIDERS: PCP Physician Assistant Surgical; Visit Provider Radiology Diagnostic Radiology | DX: I65.23 Occlusion and stenosis of bilateral carotid arteries (principal) | CPT/HCPCS: 93880 ==

== ENCOUNTER 2025-02-18 13:51 | Outpatient (AMB) | payer MEDICARE, SELFPAY ==
--- NOTE | 2025-02-18 14:07 | A.OFFVIS_ITS ---
Vital Signs 02/18/25 14:09 Height 5 ft 6 in Weight 156 lb 1.396 oz BMI 25.2 BP 110/64 Blood Pressure Location Lt brachial Position Sitting Pulse 70 Pulse Source Pulse Oximeter Intake Visit Reasons: 24 mth f/up Intake Note: 4 mth f/up Supervisor Varnish Required: No Accompanied by: daughter Allergies No Known Allergies (No Known Allergies*) Allergy (Verified 04/25/23 10:12) Medication List - Last Reconciled 02/18/25 by Juan Padron MD acetaminophen 650 mg PO Q6H PRN amlodipine 2.5 mg PO DAILY ascorbic acid (vitamin C) 1,000 mg PO DAILY atorvastatin 80 mg PO DAILY 30 days B complex-vitamin C-folic acid 0.8 mg (Nephro-Natasha) 1 tab PO DAILY calcium carbonate 600 mg PO DAILY clopidogrel 75 mg PO DAILY cyanocobalamin (vitamin B-12) 1,000 mcg PO DAILY furosemide 80 mg PO DAILY metoprolol succinate ER 50 mg PO DAILY pantoprazole 40 mg PO DAILY sitagliptin phosphate (Januvia) 25 mg PO DAILY vitamin E 400 units PO DAILY HPI Comments Details: Pleasant 89 year female who is here for follow-up. She was previously following at [facility]. She had recent admission to [facility] with congestive heart failure. She was diuresed and discharged home on Lasix 80 mg once a day. She has advanced kidney disease and previous bypass surgery. She is denying any chest discomfort or significant shortness of breath. No orthopnea or PND. No peripheral edema. She is doing great at this point. Taking medications regularly without any issues. 04/25/23: She is here for f/u. She has started peritoneal dialysis since she saw us last time. She is seeing Dr Hope. She had her amlodipine stopped by Dr Hope. She said the next day or so, she had fatigue and she was slurring her speech. These symptoms improved. She did not go to ER. She is saying her PD days were decreased from 7 days to 5 days. She has increased her oxyegn recently. She is anemic and is getting iron infusions. 07/18/2023: She returns for follow-up. She has been doing well. No chest pain or shortness of breath. She is doing peritoneal dialysis at this point. She is saying she is doing very well and has been off oxygen at this point. No shortness of breath. Walking with a walker. On Plavix monotherapy at this point without any bleeding concerns. 12/05/2023: She returns for follow-up. No chest pain or shortness of breath. She is doing peritoneal dialysis and has been doing well with this strategy. Her blood pressure readings at home were elevated. She said she was previously on amlodipine but apparently it was stopped In the past. No other concerns. No bleeding issues. 04/09/2024: She is here for follow-up. She is doing well. No chest pain or shortness of breath. Blood pressure is well controlled. She is doing peritoneal dialysis as before. : She is here for follow-up. She is complaining that the left hand goes to sleep at times especially when she is keeping it raised. No pain or aching in the arm or hand. She is a vasculopath. She is tolerating Plavix without any bleeding issues. 02/18/2025: She is here for 4 months follow-up. She has no chest discomfort or shortness of breath. She is saying that she did not get per Procrit shots for few months and became anemic. She is getting the shots again. She has noticed that when she wakes up in the morning her oxygen saturations are low in the 80s. She does not have any symptoms at that time. She is denying any chest discomfort or shortness of breath. She is saying that her oxygen saturations improved on their own. She has history of COPD and background of heavy smoking many years ago. [facility] Medical History (Updated 02/18/25 @ 14:54 by Juan Padron MD) Bladder cancer PAD (peripheral artery disease) Cellulitis CKD (chronic kidney disease) Coronary artery disease Hypertension Diabetes Surgical History Hx of mastectomy S/P AAA repair Hx of colonoscopy Hx of endoscopy Hx of cardiac catheterization (~05/2020) Family History Father Lung cancer Stomach ulcer Sister Colon cancer, Onset Age: 80 Breast cancer Heart disease HTN (hypertension) Mother Cirrhosis of liver Family/Other Stomach ulcer Social History (Reviewed 02/18/25 @ 14:12 by Genet Houser [facility]) Household Members: Family and Children Housing: House Do you presently have visiting nurse or other home services: No Alcohol intake: never Patient Tobacco Use Status: Former Tobacco user Years Smoked: 40 +/- e-Cigarette/Vaping Use: Never Used Advance Directives Date on File: 09/27/21 service: No Current occupational status: retired Review of Systems Const Denies chills, Denies fatigue, Denies fever(s), Denies frequent falls, Denies weakness, Denies weight gain and Denies weight loss ENT Denies dizziness Card Denies chest pain, Denies leg edema, Denies lightheadedness, Denies palpitations, Reports dyspnea and Denies dyspnea on exertion Resp Denies cough, Reports dyspnea and Denies dyspnea on exertion GI Denies hematochezia Musc Denies abnormal gait, Denies muscle weakness, Denies numbness, Denies radiating pain into limb and Denies tingling Neuro Denies abnormal gait, Denies dizziness, Denies frequent falls, Denies numbness, Denies tingling and Denies weakness Endo Denies fatigue and Denies palpitations Physical Exam Vital Signs: Last Vital Signs Pulse 70 02/18/25 14:09 BP 110/64 02/18/25 14:09 BMI result Body Mass Index 25.2 GENERAL APPEARANCE: pale. pleasant. NECK: systolic murmur radiating to carotid, no jugular venous distention. Left subclavian bruit. SKIN: Midline sternotomy scar. HEART: ESM aortic area with preserved 2nd heart sound, regular rate and rhythm. LUNGS: clear to auscultation bilaterally. ABDOMEN: soft, nontender. EXTREMITIES: no edema. NEUROLOGIC: No gross deficits, AAO X 3 Assessment & Plan Assessment & Plan (1) Hypertension: Code(s): I10 - Essential (primary) hypertension Category: Medical (2) Chronic diastolic heart failure: Code(s): I50.32 - Chronic diastolic (congestive) heart failure Category: Medical (3) ESRD (end stage renal disease): Code(s): N18.6 - End stage renal disease Category: Medical Plan Pleasant 89-year-old female with end-stage renal disease on peritoneal dialysis, coronary artery bypass surgery, hypertension and diastolic heart failure. She is anemic due to anemia of chronic disease. Recently she did not receive Procrit and just started getting the injections back. She is denying any chest discomfort or shortness of breath. In the mornings she has low oxygen saturations but these improve on their own. I have explained to her that her clinical story does not appear to be consistent with any cardiovascular issue. She can have COPD and maybe some atelectasis when she is sleeping. I have adv ised her to do breathing exercises in the morning. Alternatively she can also use incentive spirometry during the day. Same medications for now. She had echocardiography for systolic permanent but she does not have any aortic stenosis and it is possible that the murmur is related to anemia and is a flow murmur. Thank you for allowing me to participate in the care of your patient. Please feel free to contact me if you have any questions. Medications: Changed From furosemide 120 mg (1.5 x 80 mg) PO DAILY 135 tabs 3RF To furosemide 80 mg PO DAILY Coding Level of Care Code Est Pt Level 4 (33597) Diagnoses Hypertension I10 Chronic diastolic heart failure I50.32 ESRD (end stage renal disease) N18.6
[2025-02-18 14:09] VITALS: BP 110/64; PULSE 70; BMI 25.2
--- OUTSIDE RECORDS SUMMARY | 2025-02-18 14:49 | XMS_ITS | Clinical Summary ---
Author Organization [facility] Address [address] [place] [id number] Phone Care Team Providers Care Store Cashier Name Role Phone Niall Tobar MD Unavailable Vick Gibson MD Unavailable [phone] Chavo Zimmer MD Unavailable Silvino Souza PA-C Primary Care Provider [phone] Allergies No known active allergies Medications ascorbic acid, vitamin C, (VITAMIN C) 500 MG tablet Take 1,000 mg by mouth 3 (three) times a week on Sunday, Sunday, Sunday. Active cholecalciferol, vitamin D3, 25 mcg (1,000 unit) chewable tablet Take 25 mcg by mouth daily. 08/05/19 21 Active acetaminophen (TYLENOL) 325 mg capsule 1 tablet as needed. Active furosemide (LASIX) 80 MG tablet Take 120 mg by mouth every morning. 01/11/20 23 Active clopidogrel (PLAVIX) 75 mg tablet Take 1 tablet by mouth daily. 04/25/20 23 Active amLODIPine (NORVASC) 2.5 MG tablet Take 1 tablet by mouth every morning. 03/05/20 24 Active ammonium lactate (AMLACTIN) 12 % cream Apply 1 Application topically as needed. Active calcium acetate,phosphat bind, (PHOSLO) 668 mg (169 mg elemental) tablet Take 667 mg by mouth 3 (three) times a day. Active cyanocobalamin, vitamin B-12, (VITAMIN B-12 ORAL) Take 2,500 mg by mouth daily. Active calcitriol (ROCALTROL) 0.25 MCG capsule Take 0.25 mcg by mouth 3 (three) times a week. Active CALCIUM CITRATE ORAL Take 600 mg by mouth daily. Active pantoprazole (PROTONIX) 40 MG tabletIndications: Gastroesophageal reflux disease without esophagitis TAKE 1 TABLET BY MOUTH EVERY DAY 90 tablet 3 08/04/19 25 Active metoprolol succinate (TOPROL-XL) 50 MG 24 hr tabletIndications: Essential hypertension TAKE 1 TABLET BY MOUTH EVERY DAY 90 tablet 3 08/04/19 25 Active anastrozole (ARIMIDEX) 1 mg tabletIndications: Breast cancer TAKE 1 TABLET DAILY 90 tablet 3 10/21/19 25 Active atorvastatin (LIPITOR) 80 MG tabletIndications: Mixed hyperlipidemia TAKE 1 TABLET BY MOUTH EVERY DAY 90 tablet 3 11/04/19 25 Active levothyroxine (SYNTHROID,LEVOTHR OID) 25 MCG tablet Take 1 tablet (25 mcg total) by mouth every morning. 30 tablet 2 11/14/19 25 Active JANUVIA 25 mg tabletIndications: Type 2 diabetes mellitus without complications TAKE 1 TABLET DAILY 90 tablet 01/14/20 25 Active Active Problems Patient Care Coordination No te Formatting of this note migh t be different from the original. Height 166.5cm no shoes 10/2023 Problem Noted Date Diagnosed Date Hypothyroidism 11/13/2024 Assessment & Plan (11/13/2024 11:52 AM EDT): Patient noted to have an elevated TSH of 4.81. She has also been experiencing fatigue, skin changes, and feels as though is that she may have gained weight. Given the elevated TSH and symptoms I will start her at levothyroxine 25 mcg daily. Patient was advised to start this medication in the morning. She was advised to take the medication on an empty stomach and wait an hour before consuming other medications or food. We will recheck a TSH level in 4 to 6 weeks. We will follow-up in the office in 3 months. Annual physical exam 05/12/2024 Assessment & Plan (05/12/2024 4:52 PM EST): -Labs CMP, hemoglobin A1c, lipid panel, and TSH -Follow-up annual physical 1 year -I spoke to her with regards to Cologuard and colonoscopy. Patient had her last colonoscopy in 2014 and a Cologuard about a year or 2 ago which was negative. Patient declines further Cologuard test or colonoscopy Hiatal hernia 11/16/2021 Assessment & Plan (05/12/2024 12:09 PM EST): Continue pantoprazole 40 mg p.o. daily Gastroesophageal reflux disease without esophagi tis 08/31/2021 Assessment & Plan (11/13/2024 11:47 AM EDT): Continue pantoprazole 40 mg daily Assessment & Plan (05/12/2024 12:09 PM EST): Continue pantoprazole 40 mg daily Assessment & Plan (04/11/2024 4:09 PM EDT): Continue protonix 40mg daily Malignant neoplasm of overla pping sites of right breast in female, estrogen receptor positive 03/17/2020 Assessment & Plan (05/12/2024 12:11 PM EST): Patient is followed by Dr. Gibson and is on Arimidex 1 mg p.o. daily recent mammogram back in December 2023 showed no malignancy of the left breast. Chronic heart failure 12/10/2019 Assessment & Plan (11/13/2024 11:49 AM EDT): Patient with a history of heart failure who follows with [facility] cardiology. She is maintained on 120 mg of Lasix daily. Assessment & Plan (05/12/2024 12:10 PM EST): Continue 120 mg of Lasix obtain a CMP Assessment & Plan (04/11/2024 4:05 PM EDT): Continue Lasix 120mg daily. Patient is followed by Cardiology at [facility]. Assessment & Plan (02/14/2021 2:58 PM EDT): She has continued on lasix 20 mg, asymptomatic at this time, repeat echo ordered. S/P CABG x 2 10/24/2018 Assessment & Plan (11/13/2024 11:50 AM EDT): Patient underwent a CABG followed by Cardiology at [facility]. Patient is on metoprolol succ 50mg daily, plavix 75mg daily and lipitor 80mg daily Assessment & Plan (04/11/2024 4:07 PM EDT): Patient underwent a CABG followed by Cardiology at [facility]. Patient is on metoprolol succ 50mg daily, plavix 75mg daily and lipitor 80mg daily Assessment & Plan (07/25/2022 7:54 AM EST): Asymptomatic after bypass surgery Assessment & Plan (2022 11:05 AM EST): She had two-vessel coronary artery bypass grafting in 2018 at [facility]. She feels well with no chest pain. We will continue to optimize her risk factors. Continue with aspirin, beta-gina, and statin. Assessment & Plan (02/14/2021 2:56 PM EDT): Patient has a past medical history of coronary artery disease status post two- vessel CABG in 2018 at [facility]. She has continued on aspirin, beta-gina, statin. She is denying any symptoms concerning for angina at this time. Continue to optimize cardiac risk factors. Repeat echo also ordered for this winter. Stage 4 chronic kidney disease 03/14/2018 Assessment & Plan (11/13/2024 11:47 AM EDT): Patient follows with Dr. Harp at the renal center and undergoes hemodialysis Sunday through Sunday and and Sunday. Patient recently underwent lab work which showed a drop in her H&H and received a Procrit shot. Assessment & Plan (05/12/2024 12:09 PM EST): Patient follows with Dr. Harp at the renal center and undergoes hemodialysis Sunday through Sunday and and Sunday. Patient recently underwent lab work which showed a drop in her H&H and received a Procrit shot. Assessment & Plan (04/11/2024 4:10 PM EDT): Patient follows with [facility] kidney whom is on HD 5 days a week. She has home dialysis on Sun-Sunday, /Sunday. This has been going well for her. History of bladder cancer 06/12/2017 Assessment & Plan (05/12/2024 4:51 PM EST): She follows with Dr. Verdugo yearly. Assessment & Plan (04/11/2024 4:04 PM EDT): In remission Left-sided carotid artery disease 06/12/2017 Assessment & Plan (2022 11:07 AM EST): The patient has bilateral carotid artery disease. Most recent carotid ultrasound showed 16 to 49% obstruction on the right and about 50% on the left. No medication changes. Assessment & Plan (02/14/2021 2:54 PM EDT): Moderate carotid artery stenosis. Repeat carotid ultrasound ordered for Jun 2021. Mixed hyperlipidemia 06/12/2017 Assessment & Plan (11/13/2024 11:48 AM EDT): Her most recent lipid panel in September 2024 revealed an LDL of 49, triglycerides of 127, and HDL of 33. Patient to continue to follow with [facility] cardiology and continue atorvastatin 80 mg daily. Assessment & Plan (05/12/2024 12:10 PM EST): Continue atorvastatin 80 mg p.o. daily Assessment & Plan (04/11/2024 4:07 PM EDT): Continue lipitor 80mg daily Assessment & Plan (07/25/2022 7:55 AM EST): LDL should be less than 55 mg/dL by the latest guidelines. Assessment & Plan (02/14/2021 2:55 PM EDT): Continue statin. Type 2 diabetes mellitus without complications 1 08/13/2016 Assessment & Plan (11/13/2024 11:49 AM EDT): Patient's most recent hemoglobin A1c noted at 5.3 in September 2024. Patient mentions that her blood sugars are well-controlled. Patient is stable on Januvia 25 mg daily Assessment & Plan (05/12/2024 12:10 PM EST): Patient with blood sugars are not greater than 150. Patient states that she has been doing relatively well on Januvia 25 mg p.o. daily Will obtain a hemoglobin A1c Assessment & Plan (04/11/2024 4:09 PM EDT): Well controlled on Januvia 25mg daily. Patient to continue to monitor blood sugars daily. She follows with a foot doctor every 3 months and has regular eye exams. PVD (peripheral vascular disease) 06/12/2017 History of breast cancer 05/23/2017 Cancer Staging:Pathologic stage from 04/30/2017:Stage IA(T1c, N0, cM0) - Signed by Kelly Flores DO on 01/22/2018 Assessment & Plan (11/13/2024 11:50 AM EDT): Patient underwent a mastectomy followed by another small procedure for further removal. Patient is on Arimidex and followed by Dr Gibson. Assessment & Plan (04/11/2024 4:04 PM EDT): Patient underwent a mastectomy followed by another small procedure for further removal. Patient is on Arimidex and followed by Dr Gibson. Resolved Problems Problem Noted Date Diagnosed Date Resolved Date Face lesion 04/11/2024 05/12/2024 Assessment & Plan (04/11/2024 4:11 PM EDT): Facial lesions over the same area patient underwent surgery for her basal cell when she was younger. She mentions some itching. Derm referral Dr Benson Anemia of chronic disease 02/01/2023 Hypoxia 02/01/2023 04/11/2024 Claudication of both upper e xtremities due to atherosclerosis 07/25/2022 04/11/2024 Assessment & Plan (07/25/2022 7:54 AM EST): She has severe right common femoral artery obstruction I have schedule her for an intervention via the left groin she will see her renal doctor first however Reactive airway disease 06/09/202204/01 Assessment & Plan (06/09/2022 3:09 PM EST): This is bronchospasms and chest wall pain [...] is following up with [facility] in July. Aneurysm of descending thoracic aorta 11/16/2021 04/11/2024 Coronary arteriosclerosis 11/16/2021 Polyneuropathy due to type 2 diabetes mellitus 10/27/2021 04/11/2024 Bilateral femoral artery stenosis 10/27/2021 04/11/2024 Assessment & Plan (2022 11:40 AM EST): The patient had a lower extremity arterial duplex which showed a right femoral artery stenosis, 76 to 99%. On the left side, the distal superficial femoral artery appears occluded. Please see above for further documentation of the results. The patient reports that she occasionally gets leg pain when walking up a flight of stairs but has not been doing that very much anymore. She is able to walk for an hour or 2 at the grocery store with no leg pain. She does get leg discomfort at night which I have reassured her that is most likely not her arterial disease. For now, she will continue with her current medications. We will have her follow-up with Dr. Weinsier in 6 months. Mild ankle edema 12/21/2020 04/11/2024 Renovascular hypertension 09/24/2020 Renal artery stenosis 04/06/20202023 Assessment & Plan (2022 11:07 AM EST): She had a bare-metal stent to the left renal artery in April 2020. Her right renal artery is occluded. Her most recent ultrasound showed that her stent was unable to be seen due to bowel gas and body habitus but she had normal left kidney vascular resistance. No medication changes. Assessment & Plan (02/14/2021 2:59 PM EDT): Patient is status post a bare-metal stent to the left renal artery on 04/22/2020 at [facility]. She has continued on aspirin which we will continue long-term. Blood pressures appear to be better controlled. She was recommended a repeat renal artery ultrasound which I have ordered for her for June 2021. Assessment & Plan (05/11/2020 3:45 PM EST): Patient is status post a bare-metal stent to the left renal artery on 04/22/2020 at [facility]. We recommend aspirin long-term and continuing Plavix [...] her back in follow-up in 3 months. Chronic thoracic back pain 06/30/2019 1 Pulmonary nodules 11/27/2018 04/11/2024 History of lumpectomy of right breast 07/30/2017 04/11/2024 History of abdominal aortic aneurysm (AAA) repair 06/12/2017 04/11/2024 Assessment & Plan (2022 11:08 AM EST): The patient had a AAA repair in 2000. She is feeling well. Her most recent ultrasound showed that her abdominal aorta is open with no aneurysm or stenosis. Assessment & Plan (02/14/2021 2:55 PM EDT): Repair in 2000, stable since, repeat U/s ordered for Jun 2021. Hypertriglyceridemia 06/12/2017 024 Multiple thyroid nodules 06/12/201705/2024 Myofascial muscle pain 06/12/201704/11 Psychophysiological insomnia 06/12/2017 04/11/2024 Encounters Date Type Department Care Team Description 02/11/2025 Telephone [facility] Internal Medicine [address] [place] [address] Silvino Souza PA-[place]uperto No Show (FUV 02/11 + pt canceled due to feeling sick) 01/12/2025 Refill [facility] Internal Medicine [address] [place] [address] Chris Stokes MD Medication Refill 11/26/2024 Orders Only [facility] Internal Medicine [address] [place] [address] ProviderDarnell MD 11/21/2024 Refill [facility] Internal Medicine [address] [place] [address] Silvino Souza PA-C Medication Refill from Last 3 Months Immunizations Immunization Administration Dates Next Due COVID-19 (Pre-04/23) Moderna Vaccine, mRNA, PF 10/28/2020,09/28/2020 INFLUENZA, SPLIT VIRUS, TRIVALENT PF 08/2022,04/01/2022,04/01/2020, Influenza High-Dose Quadriva lent Preservative Free IM 03/02/2023,04/07/2022,05/05/2021,03/17 Influenza High-Dose Trivalen t Preservative Free IM 04/07/2024,04/25/2019,03/14/2018,04/09,04/12/2016,04/21/2015,04/03/2014 Pneumococcal conjugate PCV13 09/25/2018,05/18/20 15 Pneumococcal polysaccharide PPSV23 08/03(Deferred: Patient Refused - pt thinks shes had it within the last 5 years, wants to hold off on it),08/30/2015,06/01/2011 RSV Vaccine (monovalent, adjuvanted) 08/30/2024 Tdap 08/06/2019 Zoster live 05/19/2016 Zoster recombinant 08/30/2024,03/17/2020 Family History Medical History Relation Comments Alcohol abuse Brother 1 Gastrointestinal hemorrhage Brother 1 Alcohol abuse Brother 2 Cancer Brother 2 Hyperlipidemia Brother 3 Hypertension Brother 3 Alcohol abuse Brother 4 Colon cancer Brother 4 Diabetes Daughter Hypertension Daughter Cancer Father Alcohol abuse Mother Cirrhosis Mother Breast cancer Sister Cancer Sister Colon cancer Sister Relation Status Comments Brother 1 (Age 45) Brother 2 Brother 3 Alive Brother 4 Daughter Alive Father (Age 91) Mother Sister Breast cancer AN D Colon Cancer Social History Tobacco Use Types Packs/Day Years Used Date Smoking Tobacco: Former Cigarettes 2 44 0 09/12/1949 - 05/28/1993 Smokeless Tobacco: Never Tobacco Cessation:Counseling Given: Not [...] Orientation Straight 11/10/2021 9: 56 PM EDT Last Filed Vital Signs Vital Sign Reading Time Taken Comments Blood Pressure 118/60 11/13/2024 10:06 AM EDT Pulse 71 11/13/2024 10:06 AM EDT Temperature 36.2 C (97.2 F) 11/03/2024 3:55 PM EDT Respiratory Rate 16 05/12/2024 11:05 AM EST Oxygen Saturation 97% 11/13/2024 10:06 AM EDT Inhaled Oxygen Concentration - - Weight 72.6 kg (160 lb) 11/13/2024 10:06 AM EDT Height 166.5 cm (5' 5.55 ) 11/13/2024 10:06 AM E DT Body Mass Index 26.18 11/13/2024 10:06 AM EDT Plan of Treatment Upcoming Encounters Date Type Department Care Team (Late st Contact Info) Description 11/03/2024 Procedure Pass [address] [address] 03/25/2025 8:40 AM EDT Office Visit [facility] Medicine [address] [place] [address] Silvino Souza PA-C [address] [place] [address] 05/29/2025 3:30 PM EST Appointment [address] [address] Vick Gibson MD [address] [place] [phone] 06/04/2025 4:00 PM EST Office Visit [facility] at [address] [address] Vick Gibson MD [address] [place] [phone] [email or web address] Health Maintenance Due Date Last Done Comments COVID-19 VACCINE ( season) 2024 2021, 10/28/2020, 09/28/2020 HEMOGLOBIN A1C 04/01/2025 09/30/2024, 04/0 07/2024, 07/08/2024, Additional history exists DEPRESSION SCREENING 05/12/2025 05/12/2024, 08/01/19 23 DIABETIC EYE EXAM 10/17/2025 10/17/2024, , 08/03/2021, Additional history exists TSH LEVEL 11/13/2025 11/13/2024, 04/2 10/2024, 08/22/2024, Additional history exists Adult Td,Tdap Booster 08/06/2029 08/06/2019 PNEUMOCOCCAL VACCINES (50+ years) Completed 09/25/2018, 08/30/2015, 05/18/2015, Additional history exists OSTEOPOROSIS SCREENING INITIAL (ONE-TIME) Completed 01/24/2023, 07/16/2017 RSV VACCINE Completed 08/30/2024 ZOSTER VACCINES Completed 08/30/2024, 03/02, 05/19/2016 HEPATITIS A VACCINES Aged Out No long er eligible based on patient's age to complete this topic HIB VACCINES Aged Out No longer eligi ble based on patient's age to complete this topic MENINGOCOCCAL VACCINES (ACWY) Aged Out No longer eligible based on patient's age to complete this topic MENINGOCOCCAL VACCINES (B) Aged Out N o longer eligible based on patient's age to complete this topic Medical Devices Implanted Type Area Parole Agent Device Identifier Shelf Expiration Date Model / Serial / Lot Marker Ultraclip 17ga 10cm Tissue Dual Trigger Breast Ti Heart Shape Bx/5ea - [id number] Implanted:Qty: 1 on 07/09/2020 by Filiberto Medel MD at [facility] Right: Breast CR [employer] [id number] / / Marker Ultraclip 17ga 10cm Tissue Dual Trigger Breast Ti Heart Shape Bx/5ea - [id number] Implanted:Qty: 1 on 09/10/2023 by Elvira Ward MD at [facility] Right: Chest Wall [employer] [id number] / / Procedures Procedure Name Priority Date/Time Associated Diagnosis Comments OUTSIDE US CAROTID REPORT ONLY Routine 11/26/2024 12:47 PM EDT TSH WITH REFLEX Routine 10/24/2024 10:37 AM EDT Elevated TSH HM DIABETES EYE EXAM FOR RESULT ENTRY ONLY Routine 10/17/2024 12:23 PM EDT POCT HEMOGLOBIN A1C Routine 07/26/2023 1 0:38 AM EST Type 2 diabetes mellitus without complications BD DXA AXIAL (SPINE) WITH HIP Routine 01/24/2023 9:16 AM EDT 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 breast in female, estrogen receptor positive from Last 3 Months or Most Recently Relevant to Health Maintenance Results * Outside US Carotid Report Only (11/26/2024 12:47 PM EDT) Historical Provider IMLinda HEAD/NECK NON THYR OID Final Result * (ABNORMAL) TSH with reflex (10/24/2024 10:37 AM EDT) TSH 4.81(H) 0.27 - 4.20 uIU/mL [facility] Blood 10/24/2024 10:3 7 AM EDT 10/24/2024 10:40 AM EDT Silvino Souza PA-C LAB BLOOD ORDERABLES Final Re sult [facility] [address] [place] [address] * DIABETES EYE EXAM FOR RESULT ENTRY ONLY (10/17/2024 12:23 PM EDT) Historical Provider HEALTH MAINTENANCE Final Result * (ABNORMAL) POCT Hemoglobin A1c (07/26/2023 10:38 AM EST) Hemoglobin A1c 6.2(A) 4.2 - 5.8 % Other 07/26/2023 10:3 8 AM EST Ene Menon NP POINT OF CARE TEST ORDERABLES F inal Result * BD DXA AXIAL (SPINE) WITH HIP (01/24/2023 9:16 AM EDT) Anatomical Region Laterality Modality Bone Density Bone Density 01/30/2023 5:48 PM EDT Impressions 01/31/2023 10:00 AM EDT Bone mineral density falls within the osteoporosis range. Narrative 01/31/2023 10:00 AM EDT This is a 87-year-old female presenting for screening exam. No prior studies for comparison. Evaluation of the lumbar spine and both hips is obtained and appears technically adequate. The lumbar spine from L3 and L4 discloses a total bone mineral density of 0.75 g/cm2 with a T-score of -2.9. Z score 0.1. This is in the osteoporosis range. The right hip (total) has a total bone mineral density of 0.696 g/cm2 with a T-score of -2.0. Z score 0.3. This is in the osteopenia range. The right hip (neck) has a total bone mineral density of 0.751 g/cm2 with a T- score of -0.9. Z score 1.6. The left hip (total) has a total bone mineral density of 0.726 g/cm2 for a T- score of -1.8. Z score 0.6. This is in the osteopenia range. The left hip (neck) has a total bone mineral density of 0.694 g/cm2 with a T- score of -1.4. Z score 1.1. Procedure Note Selwyn Diaz MD - 01/31/2023 This is a 87-year-old female presenting for screening exam. No prior studies for comparison. Evaluation of the lumbar spine and both hips is obtained and appearstechnically adequate. The lumbar spine from L3 and L4 discloses a total bone mineral density of0.75 g/cm2 with a T-score of -2.9. Z score 0.1. This is in theosteoporosis range. The right hip (total) has a total bone mineral density of 0.696 g/fe2wdpn a T- score of -2.0. Z score 0.3. This is in the osteopenia range. The right hip (neck) has a total bone mineral density of 0.751 g/cm2 witha T- score of -0.9. Z score 1.6. The left hip (total) has a total bone mineral density of 0.726 g/cm2 for aT- score of -1.8. Z score 0.6. This is in the osteopenia range. The left hip (neck) has a total bone mineral density of 0.694 g/cm2 with aT- score of -1.4. Z score 1.1. IMPRESSION: Bone mineral density falls within the osteoporosis range. Vick HAYS BD BONE DENSITY DEXA Final Result from Last 3 Months or Most Recently Relevant to Health Maintenance Insurance MEDICARE PART A & B MEDICARE REPLACEMENT MEDICARE PART A & B Member Subscriber Plan / Payer (Ef fective 2000-Present) Name:Paulette Martínez Member ID:[id number] Relation to Subscriber:Self Name:Paulette Martínez Subscriber ID:[id number] Payer ID:[id number] Group ID:Not on file Type:Medicare Address: [place] [phone] [facility] MEDICARE REPLACEMENT MEDICARE PART A & B MEDICARE REPLACEMENT MEDICARE PART A & B MEDICARE REPLACEMENT MEDICARE PART A & B MEDICARE REPLACEMENT MEDICARE PART A & B MEDICARE REPLACEMENT MEDICARE PART A & B MEDICARE REPLACEMENT MEDICARE PART A & B [id number] [place] [address] MEDICARE REPLACEMENT MEDICARE PART A & B [facility] MEDICARE REPLACEMENT [place] [id number] Advance Directives For more information, please contact: [phone] (9AM - 5PM [facility], Sunday-Sunday) Documents on File Type Date Recorded Patient Director 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 * Full Code (Latest Code Status on File) Date Activated Date Inactivated Comments 08/03/2020 3:07 PM Question Answer Comments Code Status Confirmed With: Patient * Full Code Date Activated Date Inactivated Comments 08/03/2020 6:34 AM 08/03/2020 3:07 PM Question Answer Comments Code Status Confirmed With: Patient Care Teams Store Cashier Relationship Specialty Start Date End Date Silvino Souza PA-C [address] [place] [phone] PCP - General Physician Air Brake Worker 01/31/24 Niall Tobar MD [address] [place] [address] [place] [address] Ophthalmology 10/01/19 Vick Gibson MD [address] [place] [phone] [email or web address] Primary Oncologist Medical Oncology 05/24/20 Chavo Zimmer MD [address] [place] [phone] Nephrology 01/31/23 Additional Source Comments The information contained in this document represents components of the legal health record. It is not the complete legal health record.[facility]
--- OUTSIDE RECORDS SUMMARY | 2025-02-18 14:49 | XMS_ITS | Patient Health Record ---
[facility] Organization [facility] Gall[facility] Address [address] [place] [address] Care Team Providers Care Vice President Of Academic Affairs Name Role Phone Silvino Souza Primary Care Provider Mallorie Marie Unavailable [phone] Allergies No Known Allergies Results Component Value Reference Range Notes HEMOGLOBIN A1C (GLYCOHEMOGLO BIN) Reviewed date:10/23/2024 02:51:21 PM Interpretation: Performing Lab: Notes/Report: HEMOGLOBIN A1C % (HH) 5.7 HEMOGLOBIN A1C (GLYCOHEMOGLO BIN) Reviewed date:02/02/2025 03:15:38 PM Interpretation: Performing Lab: Notes/Report: HEMOGLOBIN A1C % (HH) 5.3 HEMOGLOBIN A1C (GLYCOHEMOGLO BIN) Reviewed date:02/02/2025 07:08:20 PM Interpretation: Performing Lab: Notes/Report: HEMOGLOBIN A1C % (HH) 5.3 Reason For Referral No Information Medications Medication SIG (Take, Route, Frequency, Duration) Notes Start Date End Date Status Atorvastatin Calcium Active Calcitriol Active Calcium Active Calcium Not-Taking Clopidogrel Bisulfate 75 MG 1 tablet Orally Once a day Active Insulin Not-Taking Plavix 75 MG 1 tablet Orally Once a day Active amLODIPine Benzoate Active Crestor 10 MG 1 tablet Orally Once a day; Duration: 30 day(s) Not-Taking metFORMIN HCl 500 MG 1 tablet with meals Orally Twice a day Not-Taking Plavix 75 MG 1 tablet Orally Once a day Not-Taking traZODone HCl 50 MG Orally Not-Taking Byetta 10 MCG Pen No t-Taking Plavix 75 MG Orally Not-Babar ing Fenofibrate Not-Taki ng Docusate Sodium Not- Taking Turmeric Not-Taking Benzonatate 100 MG 1 capsule as needed Orally Three times a day Not-Taking Super B Complex Not- Taking Aspir-81 81 MG 1 tablet Orally Once a day; Duration: 30 day(s) Not-Taking amLODIPine Besylate 10 MG Orally Not-Taking Ensure Plus PRN Not-Taki ng Extra-Depth Diabetic Shoes with 3 Pair Custom heat-molded multi-density innersoles . for 1 year . Dx:sneha; Duration: . 01/11/2015 Not-Taking Clopidogrel Bisulfate 75 MG 1 tablet Orally Once a day; Duration: 30 day(s) Not-Taking Rosuvastatin Calcium 40 MG 1 tablet Orally Once a day; Duration: 30 day(s) Not-Taking Trulicity 1.5 MG/0.5ML as directed Subcutaneous Not-Taking Vitamin E Not-Taking Extra Depth Orthopedic Shoes (1 Pair) with Customized Heat Molded Multidensity Innersoles (3 Pair) as directed Dx: NIDDM/Polyneuropathy (E11.42), Hammertoe Foot Deformity (M20.41,M20.42), Preulcerative Skin Lesion(s) (L85.1 07/24/2024 Active Januvia 25 MG Orally Not-Ta mary anne Biofreeze Cool The Pain 4 % 1 application as needed Externally Three times a day Active glyBURIDE 5 MG 1 tablet Orally Once a day; Duration: 30 day(s) Not-Taking Ammonium Lactate 12 % 1 application Externally Twice a day; Duration: 30 days Active Oyster Shell Calcium + D Active Vitamin C Active Lasix Active Anastrozole 1 MG Orally Act sung Metoprolol & Diet Manage Prod 50 oral once a day Active Pantoprazole Sodium 40 MG Orally Active Furosemide 20 MG 1 tablet Orally Once a day; Duration: 30 day(s) PLUS 80 Active Acetaminophen 325 MG 1 tablet as needed Orally every 4 hrs Active Vitamin D3 Active Vitamin B12 Active Amlodipine & Diet Manage Prod Not-Taking Ascorbic Acid Active januvia Active glipiZIDE 2.5 mg Not -Taking Fish Oil 1000 MG 1 capsule Orally Onc e a day Not-Taking Multivitamin Not-Babar ing Zantac 150 MG 1 tablet at bedtime Orally Once a day Not-Taking Magnesium Oxide 250 MG as directed Orally Active Lisinopril 40 MG 1 tablet Orally Once a day; Duration: 30 day(s) Not-Taking Lipitor 80 MG 1 tablet Orally Once a day; Duration: 30 day(s) Active Dexilant 60 MG 1 capsule Orally Onc e a day; Duration: 30 day(s) Not-Taking Metoprolol-HCTZ ER A ctive Physical Therapy 3-4x per week for 3- 4 weeks 04/03/2016 Not-Taking Cholecalciferol Acti ve Night Splint AFO - L1930 as directed 04/03/2016 Not-Taking tiZANidine HCl 4 MG Orally bid for 3 days Not-Taking Immunizations Vaccine Route Administration Date Status Comme nts Influenza Unknown 08/30/2015 Administered Influenza Unknown 04/12/2016 Administered Influenza Unknown 03/26/2017 Administered Influenza Unknown 04/28/2019 Administered Influenza Unknown 04/01/2020 Administered Influenza Unknown 04/01/2022 Administered Influenza Unknown 04/02/2023 Administered Influenza Unknown 03/02/2024 Administered Pneumococcal Unknown 08/30/2015 Administered COVID-19 Moderna Vaccine Unknown 09/27/2020 Administere d First Dose: 08/30/2020 Social History Tobacco Use: Social History Observation [...] (Standard) Question Answer Notes Tobacco use: Nonsmoker AUDIT-C (Standard) Question Answer Notes Did you have a drink containing alcohol in the p ast year? No Points 0 Interpretation Negative Problems Problem Type SNOMED Code ICD Code Onset Dates Problem Status W/U Status Risk Notes Problem Type 2 diabetes mellitus with diabetic polyneuropathy (E11.42) Active confirmed Vital Signs Blood pressure diastolic 70 mm Hg 02/02/2025 Height 5 ft 6.5in in 02/02/2025 Blood pressure systolic 110 mm Hg 02/02/2025 Weight 165 lbs 02/02/2025 BMI 26.23 kg/m2 02/02/2025 Procedures Procedure Date Ordered Date Performed Result Body Sit e 44742-GJUZRAD NAIL, 6 OR MORE 07/24/2024 N/A 57074-Kjkqifvp Plate 07/24/2024 N/A 49470-RFIL SKIN LESIONS, 2 TO 4 07/24/2024 N/A 14226-MKAQUGO NAIL, 6 OR MORE 10/23/2024 N/A 48875-QJAP SKIN LESIONS, 2 TO 4 10/23/2024 N/A 26977-WNCWZIA NAIL, 6 OR MORE 02/02/2025 N/A 98840-WVZW SKIN LESIONS, 2 TO 4 02/02/2025 N/A Encounters Encounter Location Date Provider Diagnosis [address] [address] 07/24/2024 Malloriejamel Campos Type 2 diabetes mellitus with diabetic polyneuropathy E11.42 ; Other hammer toe(s) (acquired), right foot M20.41 ; Tinea unguium B35.1 ; Pain in left foot M79.672 ; Other hammer toe(s) (acquired), left foot M20.42 ; Ingrown nail L60.0 ; Hallux valgus of right foot M20.11 and Hallux valgus of left foot M20.[address] [address] 10/23/2024 Malloriejamel Campos Type 2 diabetes mellitus with diabetic polyneuropathy E11.42 and Tinea unguium B35.[address] [address] 02/02/2025 Mallorie Black Type 2 diabetes mellitus with diabetic polyneuropathy E11.42 ; Tinea unguium B35.1 ; Pain in right toe(s) M79.674 ; Contusion of lesser toe of right foot without damage to nail, initial encounter S90.121A and Closed nondisplaced fracture of proximal phalanx of lesser toe of right foot, initial encounter S92.514A [address] [address] 03/24/2024 Mallorie Black Assessments Encounter Date Diagnosis (ICD Code) Assessment Notes Treatment Notes Treatment Clinical Notes Section Notes 07/24/2024 Other hammer toe(s) (acquired), right foot (ICD-10 - M20.41) Patient Educated with: DIABETIC FOOT CARE INSTRUCTIONS. pdf (DIABETIC FOOT CARE INSTRUCTIONS. pdf) 07/24/2024 Type 2 diabetes mellitus with diabetic polyneuropathy (ICD-10 - E11.42) 10/23/2024 Type 2 diabetes mellitus with diabetic polyneuropathy (ICD-10 - E11.42) 10/23/2024 Tinea unguium (ICD-10 - B35.1) 02/02/2025 Type 2 diabetes mellitus with diabetic polyneuropathy (ICD-10 - E11.42) 02/02/2025 Tinea unguium (ICD-10 - B35.1) 07/24/2024 Tinea unguium (ICD-10 - B35.1) 02/02/2025 Pain in right toe(s) (ICD-10 - M79.674) 07/24/2024 Pain in left foot (ICD-10 - M79.672) 02/02/2025 Contusion of lesser toe of right foot without damage to nail, initial encounter (ICD-10 - S90.121A) 02/02/2025 Closed nondisplaced fracture of proximal phalanx of lesser toe of right foot, initial encounter (ICD-10 - S92.514A) 07/24/2024 Other hammer toe(s) (acquired), left foot (ICD-10 - M20.42) 07/24/2024 Ingrown nail (ICD-10 - L60.0) 07/24/2024 Hallux valgus of right foot (ICD-10 - M20.11) 07/24/2024 Hallux valgus of left foot (ICD-10 - M20.12) 10/23/2024 Other Plan Of Treatment Pending Test Test Name Order Date X ray : Foot, right 3V 03/17/2013 X ray : Foot, right 3V 02/02/2025 68360-FVTHMXD NAIL, 6 OR MORE 02/02/2025 57214-IOQLWGV NAIL, 6 OR MORE 07/24/2024 33144-WGLREFR NAIL, 6 OR MORE 10/23/2024 03470-HNWELNZ NAIL, 6 OR MORE 02/05/2023 30663-XPETRTA NAIL, 6 OR MORE 05/14/2023 73796-UQTBZFG NAIL, 6 OR MORE 08/27/2023 20292-NQEHDBQ NAIL, 6 OR MORE 12/10/2023 84983-YZDLHUA NAIL, 6 OR MORE 05/13/2018 87029-JZBAGHG NAIL, 6 OR MORE 08/05/2018 39554-SQXKLJQ NAIL, 6 OR MORE 10/28/2018 17786-MNOTHIQ NAIL, 6 OR MORE 01/20/2019 16560-HMJBCUM NAIL, 6 OR MORE 04/17/2019 52762-EFSMVYF NAIL, 6 OR MORE 07/10/2019 81268-LZTTLLL NAIL, 6 OR MORE 02/09/2020 33000-BHQEXMI NAIL, 6 OR MORE 05/17/2020 15495-PJDOEUR NAIL, 6 OR MORE 08/23/2020 50709-NUPNLZP NAIL, 6 OR MORE 11/22/2020 61527-HHOPFNW NAIL, 6 OR MORE 05/19/2021 26591-PHJZBWK NAIL, 6 OR MORE 09/01/2021 62641-YRACYTG NAIL, 6 OR MORE 02/27/2022 30576-SBUAYRT NAIL, 6 OR MORE 06/13/2022 86281-CWYDHVW NAIL, 6 OR MORE 11/21/2021 97024-SFJSJDJ NAIL, 6 OR MORE 11/06/2022 95347-BIGOTXF NAIL, 6 OR MORE 03/17/2013 71649-NQQLYPX NAIL, 6 OR MORE 06/04/2013 17308-IVDMIGC NAIL, 6 OR MORE 09/03/2013 78715-MKUOGMA NAIL, 6 OR MORE 12/08/2013 55014-SGNIJIT NAIL, 6 OR MORE 05/25/2014 84600-WBNMMAQ NAIL, 6 OR MORE 08/12/2014 97616-VDZVBKP NAIL, 6 OR MORE 10/22/2014 16444-VAKYGXD NAIL, 6 OR MORE 01/11/2015 11936-GGOERAE NAIL, 6 OR MORE 03/12/2014 70628-MRVWAQO NAIL, 6 OR MORE 04/05/2015 44348-YXYZSGW NAIL, 6 OR MORE 10/02/2016 97060-WWDBSSH NAIL, 6 OR MORE 12/25/2016 60117-EUMJKXA NAIL, 6 OR MORE 03/19/2017 76798-RUIPJXC NAIL, 6 OR MORE 06/11/2017 69386-XVZOTCL NAIL, 6 OR MORE 09/03/2017 81589-ZLPWWAO NAIL, 6 OR MORE 11/19/2017 41947-SXITGJK NAIL, 6 OR MORE 02/11/2018 00758-Oikdrufb Plate 04/05/2015 57974-Yyidgsjz Plate 03/12/2014 96352-Uamujxct Plate 01/11/2015 29608-Zxtaknxs Plate 10/22/2014 98241-Oytuofzv Plate 08/12/2014 78867-Anyioflp Plate 05/25/2014 53408-Ccczzjep Plate 12/08/2013 17469-Edbutlzv Plate 09/03/2013 33606-Opqkmngv Plate 07/24/2024 06086-Jxwzuslo Plate Each Additional 10/2013 29822-Sgcvantm Plate Each Additional 03/2014 88070-Cevkbeae Plate Each Additional 83063-Tbcutxsd Plate Each Additional 05/2015 85754-Tospdldc Plate Each Additional 41339-Lbkdhvoi Plate Each Additional 55762-Lrvoamde Plate Each Additional 10/2014 53031-Kvmkdhyk Plate Each Additional 05/2014 82789-XNDW SKIN LESIONS, OVER 4 06/17/20 15 64445-SSVL SKIN LESIONS, OVER 4 08/30/19 16 15128-CERB SKIN LESIONS, OVER 4 11/22/19 16 61722-DKWI SKIN LESIONS, OVER 4 02/02/20 16 25073-ADEA SKIN LESIONS, OVER 4 04/13/20 16 50519-BKLW SKIN LESIONS, OVER 4 07/10/19 17 75089-JLFI SKIN LESIONS, 2 TO 4 04/05/20 15 24933-ALAB SKIN LESIONS, 2 TO 4 10/03/19 17 72978-URGG SKIN LESIONS, 2 TO 4 12/26/19 17 15836-RKEU SKIN LESIONS, 2 TO 4 06/11/20 17 98808-VHJR SKIN LESIONS, 2 TO 4 03/19/20 17 87725-IHXW SKIN LESIONS, 2 TO 4 05/13/20 18 25223-CYHE SKIN LESIONS, 2 TO 4 02/12/20 18 42798-PRXL SKIN LESIONS, 2 TO 4 09/04/19 18 00186-RGFZ SKIN LESIONS, 2 TO 4 11/20/19 18 75436-WROH SKIN LESIONS, 2 TO 4 03/12/20 14 11372-KSMT SKIN LESIONS, 2 TO 4 01/12/20 15 78699-XKNM SKIN LESIONS, 2 TO 4 10/23/19 15 24214-WVBE SKIN LESIONS, 2 TO 4 08/12/19 15 80337-RDQU SKIN LESIONS, 2 TO 4 05/25/20 14 18104-NJRK SKIN LESIONS, 2 TO 4 12/09/19 14 90904-HFDP SKIN LESIONS, 2 TO 4 09/04/19 14 89857-OZKJ SKIN LESIONS, 2 TO 4 06/04/20 13 45587-MREQ SKIN LESIONS, 2 TO 4 03/17/20 13 85379-ITXF SKIN LESIONS, 2 TO 4 10/24/19 25 82615-NFLV SKIN LESIONS, 2 TO 4 02/03/20 69718-NVGS SKIN LESIONS, 2 TO 4 07/24/19 39647-AHKQ SKIN LESIONS, 2 TO 4 12/10/19 24 09431-IVAX SKIN LESIONS, 2 TO 4 08/27/19 24 98874-KNIN SKIN LESIONS, 2 TO 4 05/14/20 32562-FCMQ SKIN LESIONS, 2 TO 4 02/06/20 40439-HYRQ SKIN LESIONS, 2 TO 4 02/28/20 99374-WRZD SKIN LESIONS, 2 TO 4 06/13/20 76875-QFVP SKIN LESIONS, 2 TO 4 11/07/19 25222-LNFC SKIN LESIONS, 2 TO 4 11/22/19 34592-EXOE SKIN LESIONS, 2 TO 4 09/02/19 20316-HUEH SKIN LESIONS, 2 TO 4 05/19/20 21 92996-PBRN SKIN LESIONS, 2 TO 4 11/23/19 21 61872-TFHS SKIN LESIONS, 2 TO 4 08/23/19 21 67778-XEYD SKIN LESIONS, 2 TO 4 05/17/20 20 35962-QQHK SKIN LESIONS, 2 TO 4 02/09/20 20 04975-KWMM SKIN LESIONS, 2 TO 4 07/10/19 20 00812-DOBX SKIN LESIONS, 2 TO 4 04/17/20 19 68511-SZBL SKIN LESIONS, 2 TO 4 01/21/20 19 22270-GTLS SKIN LESIONS, 2 TO 4 10/29/19 19 96136-DWLX SKIN LESIONS, 2 TO 4 08/05/19 19 M7723-RYRFPRVE DYSTROPHIC NAILS ANY # G9376-BIJXOITT DYSTROPHIC NAILS ANY # C4213-XLSIHVYU DYSTROPHIC NAILS ANY # B1310-EUNTHHYW DYSTROPHIC NAILS ANY # H3621-VNCFHWDQ DYSTROPHIC NAILS ANY # N7355-TONFMTGD DYSTROPHIC NAILS ANY # 50,V7477-NEC TENDON SHEATH/LIGAMENT 0 02/02/201635056,M0943-MNE TENDON SHEATH/LIGAMENT 1 66757,L7176-LDG TENDON SHEATH/LIGAMENT 0 12/27/2015 Next Appt Details Provider Name:Mallorie Campos , 05/11/2025 03:00:00 PM, [address] [place], [address], Insurance Providers Payer Name Payer Address Payer Phone Subscriber Number Group Number Insured Name Patient Relationship to Insured Coverage Start Date Coverage End Date [employer] Medicare Adv-22641 [address] [address] [place] [address] [id number] Paulette Martínez Self - patient is the insured Medical (General) History Medical History History ICD Code cholesterol diabetic type ll diverticulosis neuropathy high blood pressure psoriasis/eczema reflux measles cervical cancer Other hammer toe(s) (acquired), right fo ot M20.41 Osteoarthritis of right ankle and foot M 19.071 Neuritis of left foot G57.92 Other hammer toe(s) (acquired), left denise t M20.42 Hallux valgus of right foot M20.11 Hallux valgus of left foot M20.12 Surgical History Surgery Date(Month/Year) skin cancer 1968 gall bladder 1983 varicose vein stripping 1970 bladder cancer 1993 abdominal aortic aneurysm repair 2000 lumpectomy, right breast 04/2017 double bypass 08/2018 right breast removed 08/03/2020 Eye Surgery -right 10/07/2020 [place] History Reason Date[place] [facility] [place] [facility]- [facility], 1 week stay, went to rehab 2022 [facility]- Stent put in leading to kidney 04/02 [place] [facility] [place] breast cance r 04/2017 Admitted to [facility] x5 days;pnom onia 02/23/2015-02/23/2015
--- OUTSIDE RECORDS SUMMARY | 2025-02-18 14:52 | XMS_ITS ---
Author Organization [facility] Care Team Providers Care Wallcovering Texturer Name Role Phone Remberto, Devendra Unavailable Unavailable Maxwell Mckeon Unavailable Unavailable Cameron Jackson Unavailable Unavailable Allergies and adverse reactions No Known Allergies Care Team Name Role Address Phone Organization Dates Devendra Sr PCP [address], [address], [place] (Office): [phone] (Fax): [phone] [facility] 10/07/2021 - 10/21/2021 Maxwell Mckeon [address], [address], [facility] (Office): [phone] (Fax): [phone] [facility] 10/07/2021 - 10/21/2021 Cameron Jackson [address], [address], [facility] (Office): [phone] (Fax): [phone] [facility] 10/07/2021 - 10/21/2021 Mental Status Section Date Assessment Total Score Description 10/21/2021 BIMS 13 cognitively int act CAM 0 No delirium ind icated PHQ-9 02 minimal depress ion 10/14/2021 BIMS 14 cognitively int act CAM 0 No delirium ind icated PHQ-9 07 mild depression Problems Problem # Description Date of onset Resolved Date Code CodeSystem Concern Status 1 ACIDOSIS 10/08/[address] active 2 ACUTE KIDNEY FAILURE, UNSPECIFIED 10/08/[address] active 3 ANURIA AND OLIGURIA 10/08/[address] active 4 ATHEROSCLEROTIC HEART DISEASE OF [place] CORONARY ARTERY WITHOUT ANGINA PECTORIS 10/08/[address] active 5 CELLULITIS, UNSPECIFIED 10/08/[address] active 6 CHRONIC KIDNEY DISEASE, STAGE 4 (SEVERE) 10/08/[address] active 7 DIARRHEA, UNSPECIFIED 10/08/[address] active 8 ESSENTIAL (PRIMARY) HYPERTENSION 10/08/[address] active 9 GASTRO-ESOPHAGEAL REFLUX DISEASE WITHOUT ESOPHAGITIS 10/08/[address] active 10 HYPERLIPIDEMIA, UNSPECIFIED 10/08/[address] active 11 MUSCLE WEAKNESS (GENERALIZED) 10/08/[address] active 12 NAUSEA WITH VOMITING, UNSPECIFIED 10/08/[address] active 13 OTHER DISORDERS OF ELECTROLYTE AND FLUID BALANCE, NOT ELSEWHERE CLASSIFIED 10/08/[address] active 14 PERIPHERAL VASCULAR DISEASE, UNSPECIFIED 10/08/[address] active 15 PERSONAL HISTORY OF MALIGNANT NEOPLASM OF BREAST 10/08/[address] active 16 THROMBOCYTOPENIA, UNSPECIFIED 10/08/[address] active 17 TYPE 2 DIABETES MELLITUS WITHOUT COMPLICATIONS 10/08/[address] active 18 UNSPECIFIED ABNORMALITIES OF GAIT AND MOBILITY 10/08/[address] active Reason for Referral No Reasons for Referral Entered Social History Social History Observation Description Start Date End Date Code Code System Current Smoking Status Tobacco smoking consumption unknown 215969832 SNOMED CT Sex Assigned At Female 1935 51400-7 [facility] Gender Identity Vital Signs Code Code System Vitals Name Values and Units Timing Information 9279-1 [facility] Respiratory Rate Value=18.0 Units=/m in 10/21/2021 8310-5 [facility] Body Temperature Value=98.1 Units= F 10/21/2021 8867-4 [facility] Heart rate Value=75.0 Units=/min 26647-7 [facility] O2 % BldC Oximetry Value=97.0 Units= % 10/21/2021 86538-3 [facility] Weight Hdjtl=055.0 Units=Lbs 8462-4 [facility] Blood Pressure-Diastolic Value=49 Un its=mmHg 10/21/2021 8480-6 [facility] Blood Pressure-Systolic Value=96 Uni ts=mmHg 10/21/2021 63620-4 [facility] Pain Level Value=0.0 10/20/2021 8302-2 [facility] Height Value=65.0 Units=Inches 10/10/2021 2339-0 [facility] Blood Sugar Cudzg=604.0 Units=mg/dL 10/10/2021
== END 2025-02-18 14:56 | disposition home or self-care (01) ==
LOC: HO.HCS 13:52
PROVIDERS: PCP Physician Assistant Surgical; Visit Provider Internal Medicine Cardiovascular Disease
DX: I12.0 Hypertensive chronic kidney disease with stage 5 chronic kidney disease or end stage renal disease (principal); I50.32 Chronic diastolic (congestive) heart failure; N18.6 End stage renal disease
CPT/HCPCS: 99214

== ENCOUNTER → 2025-02-18 13:51 | Outpatient (BNVA) | payer MEDICARE, SELFPAY | PROVIDERS: PCP Physician Assistant Surgical; Visit Provider Internal Medicine Cardiovascular Disease | DX: I13.0 Hypertensive heart and chronic kidney disease with heart failure and stage 1 through stage 4 chronic kidney disease, or unspecified chronic kidney disease (principal); N18.6 End stage renal disease; I50.32 Chronic diastolic (congestive) heart failure | CPT/HCPCS: 99212 ==

== ENCOUNTER 2025-03-17 12:40 | Inpatient (IN) | payer MEDICARE, SELFPAY ==
--- OUTSIDE RECORDS SUMMARY | 2016-03-20 | XMS_ITS | Encounter Summary ---
Author Organization [facility] Address [address] [place] [phone] Phone Care Team Providers Care Clinical Immunologist Name Role Phone Unavailable Primary Care Provider Unavailabl e Encounter Details Date Type Department Care Team (Late st Contact Info) Description 03/20/2016 Hospital Encounter [facility],Outside Imaging [address] [place] [address] System, Provider Not In, [place] [address] Social History Tobacco Use Types Packs/Day Years [...] 08/03/2020 6:03 PM Bria Ceja RN * [place] Suicide Severity Rating Scale (Screener/Recent Self-Report) Question [...] st Contact Info) Description 11/03/2024 Procedure Pass [address] [address] 03/25/2025 8:40 AM EDT Office Visit [facility] Internal Medicine [address] [place] [address] Silvino Souza PA-C [address] [place] [phone] 05/29/2025 3:30 PM EST Appointment [address] [address] Vick Gibson MD [address] [place] [phone] 06/04/2025 4:00 PM EST Office Visit [facility] at [facility] [address] [place] [address] Vick Gibson MD [address] [place] [address] [email or web address] documented as of this encounter Procedures Procedure [...] It is not the complete legal health record.[facility]
--- OUTSIDE RECORDS SUMMARY | 2024-03-24 11:45 | XMS_ITS ---
Author Organization [facility] Address [address] [place] [phone] Care Team Providers Care Key Filer Name Role Phone Silvino oSuza Primary Care Provider Mallorie Marie [phone] Encounters Encounter Location Date Provider Diagnosis [address] [phone] 03/24/2024 Mallorie Campos Plan Of Treatment Next Appt Details Provider Name:Mallorie Camila Campos , 05/11/2025 03:00:00 PM, [address] [place] [address], [phone], Progress Notes * Paulette GARCIAS LDOB: (89 yo F)Acc No.[id number]:03/24/2024 Progress Note Patient: Paulette OLSON Provider: Zabrina Campos DPM :1935 A ge:88 Y S ex:Female Date:03/24/2024 Address:[address] [place], [place] [phone] Pcp:Silvino Souza Subjective: * Chief Complaints: * [...] 03/24/2024 Generated for Printi ng/Faxing/eTransmitting on: 0 03/17/2025 05:22 PM EDT
[2025-03-17] VITALS (8 sets, daily range): BP systolic 107–153; BP diastolic 50–71; PULSE 68–740; RESP 13–24; TEMP 36.3–37.1; O2SAT 83–97; BMI 25.8
--- NOTE | ~2025-03-17 | CT_ITS ---
EXAMINATION: CTA NECK WITH CONTRAST (STROKE) CTA BRAIN WITH CONTRAST (STROKE) CLINICAL INFORMATION: Left-sided vision loss. COMPARISON: Correlated to ultrasound carotid Doppler dated November 26, [address] brain dated September 21, 2018. TECHNIQUE: CTA of the head and neck was performed in the axial plane from the mediastinum to the skull vertex using 70 mL Omnipaque 350 intravenous contrast. Additional reformatted multiplanar images including maximum intensity projection MIP images are generated on the CT workstation. This CT examination was performed using dose optimization techniques as appropriate, variously including the following: *Automated exposure control *Adjustment of mA and/or kV according to patient size (this includes techniques or standardized protocols for targeted exams where dose is matched to indication/reason for exam; i.e. extremities or head) *Use of iterative reconstruction technique DLP: 1498 mGy centimeter. FINDINGS: The degree of stenosis determined by criteria similar to NASCET. Brain: No acute intracranial hemorrhage, mass effect, midline shift, hydrocephalus or herniation. Stroud-white matter differentiation is normal. Bilateral, numerous, likely extra-axial punctate calcifications in the supratentorial and infratentorial compartment. Calcified plaques throughout the intracranial arteries of the anterior and posterior circulation. Normal position of the cerebellar tonsils. No acute fracture in the bony calvarium. No air-fluid levels in the paranasal sinuses. Tympanic cavities and mastoid cells are aerated. Edentulous.. Chest CTA: No aneurysm or dissection, thoracic aortic arch included in the exam. Mixed plaques in the thoracic aortic arch and its main branches. Neck CTA: Right CCA: Normal patency. Calcified plaques. No focal stenosis. No intimal flap. Right ICA: Large calcified plaque representing 80-90 % stenosis. No intimal flap. Left CCA: Calcified plaques. Normal patency. No focal stenosis. No intimal flap. Left ICA: Large calcified plaque representing 90% stenosis. Normal patency. No intimal flap. V1/V2 segments: Normal patency. No focal stenosis. No intimal flap. Left vertebral artery is dominant. The origin is from the subclavian arteries. . Brain CTA: Anterior cerebral circulation: ICAs: Calcified plaques petrous cavernous supracavernous segments. Normal patency. No focal stenosis. No abrupt cut off. ICA terminus is normal. MCA's: Normal patency. No focal stenosis. No abrupt cut off. Left is/trifurcation demonstrated no vascular irregularity. ACAs: Normal patency. No focal stenosis. No abrupt cut off. Ophthalmic arteries are patent without irregularity at the origin. Anterior communicating artery is patent. Posterior communicating arteries are patent without irregularity at the origin. Posterior cerebral circulation: V3/V4 segment: Calcified plaques. High degree stenosis at the right vertebral artery near the C1-C2 level with the distal reconstitution. No intimal flap. Left posterior inferior cerebellar artery is patent. Right posterior inferior cerebellar artery is patent in the proximal segment. Basilar artery is patent with calcified plaque. No intimal flap. No focal stenosis. Superior cerebellar arteries are patent. credit reporter: Normal patency. No focal stenosis. No abrupt cut off. Ancillary findings: Main cerebral venous sinuses are patent without intraluminal defect. Right-sided pleural effusion, moderate to large volume. Centrilobular emphysematous changes. Pulmonary mosaic pattern. Sternal wires. Heterogeneous nodular not enlarged thyroid gland. Multiple levels punctate calcifications, submandibular glands. Multilevel cervical spondylosis pronounced at C4-5 and C5-6. Mediastinal lymphadenopathy CT/CT angio head neck IMPRESSION: 80% stenosis secondary to a large calcified plaque, right ICA. 80-90% stenosis secondary to calcified plaque, left ICA. High degree stenosis at the V3 segment right vertebral artery at the level of C1-C2 with distal reconstitution. Atherosclerosis disease, intracranial arteries involving mostly the vertebral arteries and the ICAs. No gross main cerebral artery occlusion/embolus. No gross cerebral aneurysm. 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 Sialolithiasis, submandibular glands. Right-sided pleural effusion, moderate to large volume. This critical test result is communicated to: Alejandra Chisholm, physician real estate executive assistant in the emergency department via [employer] at 1:55 PM on March 17, 2025. Electronically signed by: Triston Grullon MD 03/17/2025 02:12 PM EDT
--- NOTE | ~2025-03-17 | MR_ITS ---
EXAMINATION: MR ANGIOGRAPHY BRAIN WITHOUT AND WITH CONTRAST CLINICAL INFORMATION: Acute visual loss COMPARISON: Correlated to CT angiogram head and neck dated March 17, 2025. TECHNIQUE: Contrast enhanced MRA [place] of [place]/brain. Axial 3-D [id number]. Maximum intensity projections. Total of 10 cc of gadolinium based (Gadavist) given intravenously without reported immediate complications. FINDINGS: Anterior cerebral circulation: ICAs: Tortuosity in the distal cervical segment of the left ICA. Normal patency. No focal stenosis. No abrupt cut off. Ophthalmic arteries are patent with decreased caliber and enhancement of the right ophthalmic artery. MCA's: Normal patency. No focal stenosis or abrupt cut off. No vascular irregularity at the bifurcation/trifurcation ACAs: Normal patency. No focal stenosis. No abrupt cut off. Small caliber of the left JAN. Anterior communicating artery is patent. Posterior communicating arteries are patent. Posterior cerebral circulation: Dominant left vertebral artery. Posterior inferior cerebral arteries are patent. The V3 segment around the C1-C2 vertebral artery is not fully included. Basilar artery is patent without focal stenosis or intimal flap. Small caliber at the origin of the left superior cerebellar artery. The right superior cerebellar artery is patent. club lounge attendant: Normal patency without focal stenosis or abrupt cut off. Ancillary findings: The main cerebral venous sinuses are patent without intraluminal filling defects. 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 Electronically signed by: Triston Grullon MD 03/18/2025 02:17 PM EDT
--- NOTE | 2025-03-17 12:52 | ED.GENADULT ---
HPI - General Adult General Chief complaint: Neuro Symptoms/Deficit Stated complaint: stroke, sent by doctor Time Seen by Provider: 03/17/25 13:05 History of Present Illness ED Provider: Hernan Lin MD HPI narrative: [age] female sent from communications field technician's office for possible estrada red spot communications field technician concern for central retinal artery occlusion. Patient reports vision loss on the left side since in the a.m.> 72 hours no other neurologic deficits or complaints there is a documented TIA in the past. History of AAA acute on chronic CHF hypertension ESRD . Related Data Home Medications ?Medication ?Instructions ?Recorded ?Confirmed ascorbic acid (vitamin C) 500 mg 500 mg PO MOWEFR@89909/26/21 03/17/25 capsule pantoprazole 40 mg tablet,delayed 40 mg PO DAILY@62909/26/21 03/17/25 release acetaminophen 325 mg capsule 650 mg PO Q6H PRN Fever Or Pain 12/24/22 03/17/25 calcium carbonate 600 mg PO DAILY 12/24/22 03/17/25 metoprolol succinate 50 mg 50 mg PO DAILY 12/24/22 03/17/25 tablet,extended release 24 hr furosemide 80 mg tablet 120 mg PO DAILY 02/18/25 03/17/25 amlodipine 2.5 mg tablet 2.5 mg PO BEDTIME 03/17/25 03/17/25 anastrozole 1 mg tablet 1 mg PO BEDTIME 03/17/25 03/17/25 atorvastatin 80 mg tablet 80 mg PO BEDTIME 03/17/25 03/17/25 cholecalciferol (vitamin D3) 50 50 mcg PO BEDTIME 03/17/25 03/17/25 mcg (2,000 unit) tablet (Vitamin D3) levothyroxine 25 mcg tablet 25 mcg PO DAILY@59903/17/25 03/17/25 magnesium oxide 500 mg PO DAILY 03/17/25 03/17/25 sitagliptin phosphate 25 mg tablet 25 mg PO DAILY 03/17/25 03/17/25 (Januvia) vitamin B complex-vitamin C-folic 1 tab PO DAILY 03/17/25 03/17/25 acid 0.8 mg tablet (Nephro-Natasha) Previous Rx's ?Medication ?Instructions ?Recorded clopidogrel 75 mg tablet 75 mg PO DAILY #90 tabs 06/09/24 prednisone 20 mg tablet 60 mg (3 x 20 mg) PO DAILY #90 tabs 03/18/25 Allergies Allergy/AdvReac Type Severity Reaction Status Date / Time No Known Allergies (No Known Allergy Verified 03/17/25 12:50 Allergies*) [facility] Past Medical History Medical History Bladder cancer PAD (peripheral artery disease) Cellulitis CKD (chronic kidney disease) Coronary artery disease Hypertension Diabetes Surgical History Hx of mastectomy S/P AAA repair Hx of colonoscopy Hx of endoscopy Hx of cardiac catheterization (~05/2020) Family History Family History Father Lung cancer Stomach ulcer Sister Colon cancer, Onset Age: 80 Breast cancer Heart disease HTN (hypertension) Mother Cirrhosis of liver Family/Other Stomach ulcer Social History Social History Household Members: Children Household Members Other:: daughter Housing: House Do you presently have visiting nurse or other home services: No Alcohol intake: never Patient Tobacco Use Status: Former Tobacco user Years Smoked: 40 +/- e-Cigarette/Vaping Use: Never Used Advance Directives Date on File: 09/27/21 service: No Current occupational status: retired Physical Exam ED Exam Exam: GENERAL: Well appearing. No apparent distress. Alert. HEAD/NECK: Normal to inspection. Neck supple. No cervical lymphadenopathy. EYES: Normal to inspection. Sclera non-icteric. ENMT: External nose normal. RESPIRATORY: Respiratory effort normal. Lungs clear to auscultation bilaterally. CARDIOVASCULAR: Regular rate. Normal rhythm. No murmur. No rubs. GI: Soft, non-tender, non-distended. No rebound or guarding. No masses palpable. No hepatosplenomegaly. SKIN: No jaundice. NEUROLOGICAL: Alert. PSYCHIATRIC: Alert. Appearance appropriate for situation. Attitude cooperative. OTHER: Comprehensive Neuro exam: Reports finger detection only vision in the left side. Face is asymmetric however this is chronic and baseline per family and the patient due to skin lesion and previous resection and scarring to the left face which flattens the nasolabial fold and leads to near incomplete left eye closure. Her left pupil is dilated as she just came in from the communications field technician's office where she had pharmacologic dilated eye exam. Right eye pupil about 2-3 mm reactive., intact sensation to the face throughout, intact strong face deviation and shoulder shrug. Sensation intact to light touch throughout 5 out of 5 strength in bilateral upper extremities, 5 and 5 strength in lower extremities No gross extremity or truncal ataxia Vital Signs: Vital Signs - 24 hr 03/17/25 12:47 03/17/25 13:18 Temperature 97.6 F Pulse Rate 78 80 Respiratory Rate 16 18 Blood Pressure 146/63 H 150/71 H Pulse Oximetry 93 94 Oxygen Delivery Method Room Air Room Air BMI result Body Mass Index 25.8 NIH Stroke Scale Internal: Initial- Upon Arrival Time: 14:06 Level of Consciousness: Alert Level of Consciousness Questions: Answers both questions correctly Level of Consciousness Commands: Performs both tasks correctly Best Gaze: Normal Visual: Complete hemianopia Facial Palsy: Normal (Postoperative skin cancer changes midface; baseline for the patient) Motor Arm (Right): No drift Motor Arm (Left): No drift Motor Leg (Right): No drift Motor Leg (Left): No drift Limb Ataxia: Absent Sensory: Normal Best Language: No aphasia Dysarthia: Normal Extinction and Inattention: No abnormality Score: 2 Course Course Course Narrative: This is an RME: Additional HPI, ROS, PE not included below will be deferred to primary provider. RME assessment and note performed by: Jyoti Chisholm PA-C This is a 89-year-old female who presents emergency department accompanied by her daughter from Dr. Tobar's office with concerns of vision loss. Patient states that this started on . Dr. Tobar states that on exam in his office they noticed a chair red spot, and afferent pupillary defect on exam. Recommending ESR, CRP, and stroke workup. He is requesting to be notified with results or any questions. Patient to be brought back to the main emergency department for further evaluation. Plan: labs, ct head/neck further ER eval needed Medications Administered Discontinued Medications Generic Name Dose Route Start Last Admin Trade Name Freq PRN Reason Stop Dose Admin Acetaminophen 650 mg 03/17/25 15:17 03/17/25 21:21 Acetaminophen 325 Mg Tablet PO 650 mg Q6H PRN Administration Pain, Mild 1-3,fever,headache Amlodipine Besylate 2.5 mg 03/17/25 21:00 03/17/25 20:06 Amlodipine Besylate 2.5 Mg Tablet PO 2.5 mg BEDTIME ERINN Administration Protocol Anastrozole 1 mg 03/17/25 21:00 03/17/25 20:06 Anastrozole 1 Mg Tablet PO 1 mg BEDTIME ERINN Administration Ascorbic Acid 500 mg 03/18/25 09:00 03/18/25 11:17 Ascorbic Acid 500 Mg Tablet PO 500 mg MoWeFr@0900 ERINN Administration Atorvastatin Calcium 80 mg 03/17/25 21:00 03/17/25 20:07 Atorvastatin Calcium 80 Mg Tablet PO 80 mg BEDTIME ERINN Administration Clopidogrel Bisulfate 75 mg 03/18/25 09:00 03/18/25 08:09 Clopidogrel Bisulfate 75 Mg Tablet PO 75 mg DAILY ERINN Administration Furosemide 80 mg 03/18/25 09:00 03/18/25 11:16 Furosemide 40 Mg Tablet PO 80 mg DAILY ERINN Administration Protocol Gadobutrol 10 ml 03/18/25 13:12 03/18/25 13:21 Gadobutrol 10 Ml Vial IVPUSH 03/18/25 13:13 10 ml ONCE ONE Administration Heparin Sodium (Porcine) 5,000 unit 03/17/25 16:00 03/18/25 16:33 Heparin Sodium,Porcine 5,000 Unit/Ml Vial SUBCUT 5,000 unit Q8H ERINN Administration Magnesium Sulfate 2 gm in 50 mls @ 150 mls/hr 03/17/25 14:04 03/17/25 15:38 Magnesium Sulfate/H2o IV 03/17/25 14:23 Infused ONCE ONE Infusion Methylprednisolone Sodium 66 mls @ 66 mls/hr 03/17/25 15:13 03/17/25 16:45 Succinate 1,000 mg/ Sodium IV 03/17/25 16:12 Infused Chloride ONCE ONE Infusion Methylprednisolone Sodium 66 mls @ 66 mls/hr 03/18/25 13:13 03/18/25 15:26 Succinate 1,000 mg/ Sodium IV 03/18/25 14:12 Infused Chloride ONCE ONE Infusion Iohexol 100 ml 03/17/25 13:38 03/17/25 13:38 Iohexol 350 Mg/Ml 100 Ml Infus..Btl IV 03/17/25 13:39 70 ml ONCE ONE Administration Levothyroxine Sodium 25 mcg 03/18/25 06:00 03/18/25 05:48 Levothyroxine Sodium 25 Mcg Tablet PO 25 mcg DAILY@0600 ERINN Administration Melatonin 6 mg 03/17/25 15:17 03/18/25 00:24 Melatonin 3 Mg Tablet PO 6 mg BEDTIME PRN Administration Insomnia Methylprednisolone Sodium Succinate 80 mg 03/17/25 14:04 03/17/25 14:52 Methylprednisolone Sod Succ 125 Mg/2 Ml Vial IVPUSH 03/17/25 14:05 80 mg ONCE ONE Administration Metoprolol Succinate 50 mg 03/18/25 09:00 03/18/25 08:09 Metoprolol Succinate Er 50 Mg Tab.Er.24h PO 50 mg DAILY ERINN Administration Protocol Multivitamins/Vitamin C 1 tab 03/18/25 09:00 03/18/25 11:17 Multivitamin Tablet PO 1 tab DAILY ERINN Administration Pantoprazole Sodium 40 mg 03/18/25 06:30 03/18/25 05:48 Pantoprazole Sodium 20 Mg Tablet.Dr PO 40 mg DAILY@0630 ERINN Administration Sitagliptin Phosphate 25 mg 03/18/25 09:00 03/18/25 12:04 Sitagliptin Phosphate 25 Mg Tablet PO 25 mg DAILY ERINN Administration Sodium Chloride 3 ml 03/17/25 16:00 03/18/25 16:53 0.9 % Sodium Chloride Flush 3 Ml Syringe IVFLUSH Not Given QSHIFT ERINN Vitamin D 50 mcg 03/17/25 21:00 03/17/25 20:06 Cholecalciferol (Vitamin D3) 25 Mcg Tablet PO 50 mcg BEDTIME ERINN Administration Procedures Procedure Narrative Procedure Narrative: EMERGENCY ULTRASOUND INTERPRETATION-Limited Ophthalmic US [This study was ordered, performed, and interpreted by myself. The study reveals: Impression: Possible spot sign, dilated optic nerve sheath greater than 7 mm] [Indication: Estrada red spot on ophthalmology dilated exam Anterior Chamber: NO PATHOLOGY VISUALIZED Posterior Chamber: NO PATHOLOGY VISUALIZED 0 NDS: Dilated greater than 7 mm, hyperechoic punctate abnormality at the distal aspect of the optic nerve centrally possibly spot sign Performed by: Hernan Lin MD Images were stored CPT: 28385] Medical Decision Making Medical Decision Making MDM Narrative: Medical Decision Makin-year-old female with ESRD apparently on peritoneal dialysis history of facial skin cancer, complete left-sided vision loss since waking morning did not seek care until today when she saw her communications field technician who she has seen for in the past for? Retinal detachment she was sent here for possible estrada red spot identification on fundoscopy. She her left eye was dilated prior to arrival. Patient reports no other deficits NIH stroke scale 1 for vision loss left side. Creatinine is increased from previous she has a peritoneal dialysis patient. She is hypomagnesemic. Ultrasound possible finding of spots sign maybe consistent with thrombus in the distal central retinal artery. The patient does not appear to be anticoagulated other than clopidogrel 75 daily history of SC in the past. CTA: Diffuse stenotic atherosclerosis as per the report without LVO mass or bleed CRP elevated. Creatinine increased from baseline with mild acidemia bicarbonate 18. We will get VBG. The patient is not ill or toxic no fever. She does report left-sided headache for few days no scalp tenderness no jaw claudication described. We will initiate steroid for possible giant cell arteritis Preliminary Favored Differential Diagnosis: See BLAIR, CVA, giant cell arteritis, retinal detachment, vitreous hemorrhage, embolic stroke among additional considered etiologies Testing Interpreted Independently: ?See ultrasound report Radiology or Lab testing Results Reviewed: ?See below for details Consults: Discussion with ophthalmology: He was informed of the CTA findings, agrees with the plan for admission to the hospital for MR and neurologic workup Independent Historians/External Chart Reviews: ?See below for details Social Determinants of Health Impacting MDM/Planning: ?See below for details Lab Data MDM Lab Attestation statement: I reviewed the patient's lab results. 03/18/25 04:30 03/18/25 04:30 Labs: Lab Results 03/17/25 03/17/25 03/17/25 Range/Units 13:15 14:04 14:24 WBC 8.6 (4.8-10.8) X10*3/uL RBC 3.73 L D (4.20-5.50) X10*6/uL Hgb 11.6 L D (12.0-16.0) g/dl Hct 36.7 L D (37.0-47.0) % MCV 98.4 H (80.0-98.0) fL MCH 31.1 (27.0-33.0) pg MCHC 31.6 (31.0-35.0) g/dl RDW 13.9 (11.0-16.0) % Plt Count 211 (160-400) X10*3/uL MPV 9.5 (9.4-12.3) fL Immature Gran % (Auto) 0.5 H (0.0-0.4) % Neut % (Auto) 76.7 H (45-73) % Lymph % (Auto) 9.2 L (20-40) % [place] % (Auto) 10.8 (2-11) % Eos % (Auto) 2.0 (0-4) % Baso % (Auto) 0.8 (0-2) % Lymph # (Auto) 0.8 L (1.2-4.9) X10*3/uL [place] # (Auto) 0.9 (0.1-1.2) X10*3/uL Eos # (Auto) 0.2 (0.0-0.4) X10*3/uL Baso # (Auto) 0.1 (0.0-0.2) X10*3/uL Abs Immat Gran (auto) 0.04 H (0.00-0.03) X10*3/uL Absolute Neuts (auto) 6.6 (2.0-8.3) x10*3/uL Absolute Nucleated RBC 0.000 (0.0-0.012) X10*3/uL Nucleated RBC % (auto) 0.0 (0.0-0.2) /100WBC ESR 67 H (0-20) MM/HR PT 11.4 (10.9-12.4) SEC INR 1.0 (0.9-1.1) APTT 34.9 H (26.7-34.1) SEC VBG pH 7.31 L (7.32-7.43) VBG pCO2 38 mmHg VBG pO2 47 mmHg VBG HCO3 19 L (22-26) mmol/L VBG O2 Saturation 61.0 % VBG Base Excess -5.6 mmol/L Sodium 143 (135-145) mmol/L Potassium 4.3 (3.3-5.1) mmol/L Chloride 110 H (96-108) mmol/L Carbon Dioxide 18 L (22-29) mmol/L Anion Gap 19 (12-20) BUN 48 H (9-16) mg/dL Creatinine 6.56 H* (0.5-1.4) mg/dL Estim Creat Clear Calc 5.9 Estimated GFR 6 Random Glucose 83 (60-115) mg/dL Calcium 9.1 (8.4-10.2) mg/dL Magnesium 1.5 L (1.6-2.6) mg/dL Total Bilirubin 0.5 (0.0-1.0) mg/dL Direct Bilirubin 0.2 (0.0-0.5) mg/dL AST 27 (5-31) U/L ALT 10 (0-31) U/L Alkaline Phosphatase 81 (39-117) U/L Troponin I High Sens 46.5 H (<3.5-17.0) ng/L C-Reactive Protein 2.80 H (< or = 0.50) mg/dL Total Protein 6.9 (6.5-8.0) g/dL Albumin 3.6 (3.5-5.0) g/dL Critical Care Time Critical Care Time Critical Care Time: Yes Total Critical Care Time: 30 Attestation: ED Critical Care: Acute versus subacute stroke central retinal artery occlusion suspected with vision loss Authorized and Performed by: Hernan Lin MD Total critical care time: Approximately 30 min Due to a high probability of clinically significant, life threatening deterioration, the patient required my highest level of preparedness to intervene emergently and I personally spent this critical care time directly and personally managing the patient. This critical care time included obtaining a history; examining the patient; pulse oximetry; ordering and review of studies; arranging urgent treatment with development of a management plan; evaluation of patient's response to treatment; frequent reassessment; and, discussions with other providers. This critical care time was performed to assess and manage the high probability of imminent, life-threatening deterioration that could result in multi-organ failure. It was exclusive of separately billable procedures and treating other patients and teaching time. Discharge Plan Discharge Clinical Impression: Sudden visual loss Patient Disposition: Admitted As Inpatient Interventions: Admission Worksheet (ED) Last Done: 03/18/25 09:54 Discharge Date/Time: 03/18/25 17:18
--- NOTE | 2025-03-17 13:20 | PC.NURSE ---
89 F presents to ED with L eye blurry vision since 03/12. Pt seen by eye doctor today and they dilated her L eye. Pt denies any numbness or weakness on the left side. equal strength bilat, some droop noticed to L face, no other symptoms. RR even and unlabored, denies CP or SOB. Pt denies any pain.
[2025-03-17 13:29] LABS: MANUAL DIFF FLAG NO
[2025-03-17 13:34] LABS: Hematocrit 36.7 % (37.0-47.0); Hemoglobin 11.6 g/dl (12.0-16.0); Imm Gran Abs Auto 0.04 X10*3/uL (0.00-0.03); Imm Gran Pct Auto 0.5 % (0.0-0.4); Lymphocytes Absolute Auto 0.8 X10*3/uL (1.2-4.9); Mean Corpuscular HGB Conc 31.6 g/dl (31.0-35.0); Mean Corpuscular Hemoglobin 31.1 pg (27.0-33.0); Mean Corpuscular Volume 98.4 fL (80.0-98.0); NRBC Abs Auto 0.000 X10*3/uL (0.0-0.012); NRBC Pct Auto 0.0 /100WBC (0.0-0.2); Platelet Count 211 X10*3/uL (160-400); Red Blood Count 3.73 X10*6/uL (4.20-5.50); White Blood Count 8.6 X10*3/uL (4.8-10.8)
[2025-03-17] MEDS: iohexoL 350 MG/ML 100 ML INFUS..BTL IV (13:38)
[2025-03-17 13:58] LABS: Troponin-I High Sensitivity 46.5 ng/L (<3.5-17.0)
[2025-03-17 14:02] LABS: Alanine Aminotransferase 10 U/L (0-31); Albumin Level 3.6 g/dL (3.5-5.0); Alkaline Phosphatase 81 U/L (39-117); Anion Gap 19 (12-20); Aspartate Amino Transferase 27 U/L (5-31); Blood Urea Nitrogen 48 mg/dL (9-16); Calcium 9.1 mg/dL (8.4-10.2); Carbon Dioxide 18 mmol/L (22-29); Chloride 110 mmol/L (96-108); Creatinine Clr Calc Pharmacy 5.9; Estimated Glomerular Filt Rate 6; Magnesium 1.5 mg/dL (1.6-2.6); Potassium 4.3 mmol/L (3.3-5.1); Sodium 143 mmol/L (135-145); Total Protein 6.9 g/dL (6.5-8.0)
[2025-03-17 14:06] LABS: INTERNATIONAL NORM RATIO 1.0 (0.9-1.1); Prothrombin Time 11.4 SEC (10.9-12.4)
[2025-03-17 14:09] LABS: Partial Thromboplastin Time 34.9 SEC (26.7-34.1)
[2025-03-17 14:32] LABS: Venous Blood Gas Refer to POC result
[2025-03-17 14:32] LABS: VBG HCO3 19 mmol/L (22-26); VBG O2 % Saturation 61.0 %
[2025-03-17] MEDS: Magnesium Sulfate/H2O 2 GM/50 ML PIGGYBACK IV (14:52)
--- NOTE | 2025-03-17 14:57 | ECG_ITS ---
Test Reason : POSS ARRHYTHMIA Blood Pressure : */* mmHG Vent. Rate : 69 BPM Atrial Rate : 69 BPM P-R Int : 136 ms QRS Dur : 90 ms QT Int : 432 ms P-R-T Axes : 4 -18 66 degrees QTcB Int : 462 ms Poor data quality, interpretation may be adversely affected Normal sinus rhythm Minimal voltage criteria for LVH, may be normal variant ( [place] product ) Nonspecific ST abnormality Abnormal ECG When compared with ECG of 24-Dec-2022 08:38, No significant change was found Referred By: Hernan Lin Electronically Signed By: VICTORIANO HEMPHILL
[2025-03-17] MEDS: methylPREDNISolone Sod Succ 1,000 MG in 0.9 % Sodium Chloride 50 ML 66 MG IV (15:32)
--- NOTE | 2025-03-17 15:36 | PHA.MEDREC ---
Addendum entered by Luisa Silva RPh 03/17/25 17:28: [facility] reviewed Original Note: Pharmacy Consult ? Medication Reconciliation Pharmacy has completed the medication reconciliation. Patient had a list of medications with her. Utilized list and claims to confirm med list.
--- NOTE | 2025-03-17 16:40 | HO.NURTONUR ---
89 F presents to ED with L eye blurry vision since 03/12. Pt seen by eye doctor today and they dilated her L eye. Pt denies any numbness or weakness on the left side. equal strength bilat, some droop noticed to L face, no other symptoms. RR even and unlabored, denies CP or SOB. Pt denies any pain. Pt is A+Ox4, calm, cooperative. Pt had a R mastectomy and has weekly peritoneal dialysis done at home. Head/neck CTA: 80% stenosis secondary to a large calcified plaque, right ICA. 80-90% stenosis secondary to calcified plaque, left ICA. High degree stenosis at the V3 segment right vertebral artery at the level of C1-C2 with distal reconstitution. Atherosclerosis disease, intracranial arteries involving mostly the vertebral arteries and the ICAs. No gross main cerebral artery occlusion/embolus. No gross cerebral aneurysm. 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 Sialolithiasis, submandibular glands. Right-sided pleural effusion, moderate to large volume. Labs: hgb 11.6, hct 36.7, VBG ph 7.31, BUN 48, Creatinine 6.56, mag 1.5 Admit for acute vision loss
--- NOTE | 2025-03-17 16:53 | PM.IMHP ---
History of Present Illness Date of Service: 03/17/25 Chief Complaint: Acute vision loss [age] female sent from fire protection fabricator's office for possible bonner red spot fire protection fabricator concern for central retinal artery occlusion. Patient reports vision loss on the left side since in the a.m.> 72 hours no other neurologic deficits or complaints there is a documented TIA in the past. Discussed with ophthalmology Review of Systems Review of Systems: Denies chest pain Denies shortness of breath Denies nausea vomiting diarrhea Denies fever chills PMFSH Medical History Bladder cancer PAD (peripheral artery disease) Cellulitis CKD (chronic kidney disease) Coronary artery disease Hypertension Diabetes Family History Father Lung cancer Stomach ulcer Sister Colon cancer, Onset Age: 80 Breast cancer Heart disease HTN (hypertension) Mother Cirrhosis of liver Family/Other Stomach ulcer Surgical History Hx of mastectomy S/P AAA repair Hx of colonoscopy Hx of endoscopy Hx of cardiac catheterization (~05/2020) Social History Household Members: Family and Children Housing: House Do you presently have visiting nurse or other home services: No Alcohol intake: never Patient Tobacco Use Status: Former Tobacco user Years Smoked: 40 +/- Smoked in Last 30 Days: No e-Cigarette/Vaping Use: Never Used Use of substances other than those prescribed or required for medical reasons: No Advance Directives: Yes Advance Directives on File: Yes Advance Directives Date on File: 09/27/21 service: No Current occupational status: retired [email or web address] Allergies Allergy/AdvReac Type Severity Reaction Status Date / Time No Known Allergies (No Known Allergy Verified 03/17/25 12:50 Allergies*) Active Medications: Current Medications Acetaminophen (Acetaminophen 325 Mg Tablet) 650 mg PO Q6H PRN PRN Reason: Pain, Mild 1-3,fever,headache Amlodipine Besylate (Amlodipine Besylate 2.5 Mg Tablet) 2.5 mg PO BEDTIME [facility]; Protocol Anastrozole (Anastrozole 1 Mg Tablet) 1 mg PO BEDTIME [facility] Ascorbic Acid (Ascorbic Acid 500 Mg Tablet) 1,000 mg PO DAILY [facility] Atorvastatin Calcium (Atorvastatin Calcium 80 Mg Tablet) 80 mg PO BEDTIME [facility] Calcium Carbonate (Calcium Carbonate 750 Mg Tab.Chew) 750 mg PO Q4H PRN PRN Reason: Heartburn Clopidogrel Bisulfate (Clopidogrel Bisulfate 75 Mg Tablet) 75 mg PO DAILY [facility] Furosemide (Furosemide 40 Mg Tablet) 80 mg PO DAILY [facility]; Protocol Heparin Sodium (Porcine) (Heparin Sodium,Porcine 5,000 Unit/Ml Vial) 5,000 unit SUBCUT Q8H [facility] Last Admin: 03/17/25 16:31 Dose: 5,000 unit Levothyroxine Sodium (Levothyroxine Sodium 25 Mcg Tablet) 25 mcg PO DAILY@0600 [facility] Magnesium Hydroxide (Milk Of Magnesia 30 Ml Oral.Susp) 30 ml PO DAILY PRN PRN Reason: Constipation Melatonin (Melatonin 3 Mg Tablet) 6 mg PO BEDTIME PRN PRN Reason: Insomnia Metoprolol Succinate (Metoprolol Succinate Er 50 Mg Tab.Er.24h) 50 mg PO DAILY [facility]; Protocol Multivitamins/Vitamin C (Multivitamin Tablet) 1 tab PO DAILY [facility] Non-Formulary Medication (Pantoprazole) 40 mg PO DAILY@06 [facility] Ondansetron HCl (Ondansetron Hcl 4 Mg/2 Ml Vial) 4 mg IVPUSH Q8H PRN PRN Reason: Nausea and Vomiting Sitagliptin Phosphate (Sitagliptin Phosphate 25 Mg Tablet) 25 mg PO DAILY [facility] Sodium Chloride (0.9 % Sodium Chloride Flush 3 Ml Syringe) 3 ml IVFLUSH QSHIFT [facility] Last Admin: 03/17/25 15:38 Dose: Not Given Vitamin D (Cholecalciferol (Vitamin D3) 25 Mcg Tablet) 50 mcg PO BEDTIME [facility] Home Medications ?Medication ?Instructions ?Recorded ?Confirmed ?Last Taken ?Type ascorbic acid (vitamin C) 500 mg 1,000 mg PO DAILY 09/26/21 03/17/25 03/17/25 History capsule pantoprazole 40 mg tablet,delayed 40 mg PO DAILY@0630 09/26/21 03/17/25 03/17/25 History release acetaminophen 325 mg capsule 650 mg PO Q6H PRN Fever Or Pain 12/24/22 03/17/25 Unknown History calcium carbonate 600 mg PO DAILY 12/24/22 03/17/25 03/17/25 History metoprolol succinate 50 mg 50 mg PO DAILY 12/24/22 03/17/25 03/17/25 History tablet,extended release 24 hr furosemide 80 mg tablet 80 mg PO DAILY 02/18/25 03/17/25 03/17/25 History amlodipine 2.5 mg tablet 2.5 mg PO BEDTIME 03/17/25 03/17/25 03/17/25 History anastrozole 1 mg tablet 1 mg PO BEDTIME 03/17/25 03/17/25 03/17/25 History atorvastatin 80 mg tablet 80 mg PO BEDTIME 03/17/25 03/17/25 03/16/25 History cholecalciferol (vitamin D3) 50 50 mcg PO BEDTIME 03/17/25 03/17/25 03/16/25 History mcg (2,000 unit) tablet (Vitamin D3) levothyroxine 25 mcg tablet 25 mcg PO DAILY@0600 03/17/25 03/17/25 03/17/25 History sitagliptin phosphate 25 mg tablet 25 mg PO DAILY 03/17/25 03/17/25 03/17/25 History (Januvia) vitamin B complex-vitamin C-folic 1 tab PO DAILY 03/17/25 03/17/25 03/17/25 History acid 0.8 mg tablet (Nephro-Natasha) Physical Exam Vital Signs and Narrative: Vital Signs: Last Vital Signs Temp 97.6 F 03/17/25 12:47 Pulse 68 03/17/25 15:13 Resp 15 03/17/25 15:13 BP 153/65 H 03/17/25 15:13 Pulse Ox 90 L 03/17/25 15:13 O2 Del Method Room Air 03/17/25 15:13 BMI result Body Mass Index 25.8 Const: Other: Awake alert no acute distress Resp: Other: Clear to auscultation bilaterally no rales rhonchi or wheezes Cardio: Other: No S4; positive S1-S2; no S3 murmurs rubs or gallops GI: Other: Soft nontender nondistended normoactive bowel sounds Extrem: Other: No edema bilaterally Results Labs 03/17/25 13:15 03/17/25 13:15 Labs: Laboratory Results - last 24 hr 03/17/25 03/17/25 03/17/25 13:15 14:04 14:24 MCV 98.4 H MCH 31.1 MCHC 31.6 RDW 13.9 Plt Count 211 MPV 9.5 Immature Gran % (Auto) 0.5 H Neut % (Auto) 76.7 H Lymph % (Auto) 9.2 L [place] % (Auto) 10.8 Eos % (Auto) 2.0 Baso % (Auto) 0.8 Lymph # (Auto) 0.8 L [place] # (Auto) 0.9 Eos # (Auto) 0.2 Baso # (Auto) 0.1 Abs Immat Gran (auto) 0.04 H Absolute Neuts (auto) 6.6 Absolute Nucleated RBC 0.000 Nucleated RBC % (auto) 0.0 ESR 67 H PT 11.4 INR 1.0 APTT 34.9 H VBG pH 7.31 L VBG pCO2 38 VBG pO2 47 VBG HCO3 19 L VBG O2 Saturation 61.0 VBG Base Excess -5.6 Anion Gap 19 Estim Creat Clear Calc 5.9 Estimated GFR 6 Random Glucose 83 Calcium 9.1 Magnesium 1.5 L Total Bilirubin 0.5 Direct Bilirubin 0.2 AST 27 ALT 10 Alkaline Phosphatase 81 Troponin I High Sens 46.5 H C-Reactive Protein 2.80 H Total Protein 6.9 Albumin 3.6 Imaging Radiologist's Impressions: Impressions Head/Neck CTA 03/17/25 13:19 IMPRESSION: 80% stenosis secondary to a large calcified plaque, right ICA. 80-90% stenosis secondary to calcified plaque, left ICA. High degree stenosis at the V3 segment right vertebral artery at the level of C1-C2 with distal reconstitution. Atherosclerosis disease, intracranial arteries involving mostly the vertebral arteries and the ICAs. No gross main cerebral artery occlusion/embolus. No gross cerebral aneurysm. 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 Sialolithiasis, submandibular glands. Right-sided pleural effusion, moderate to large volume. This critical test result is communicated to: Alejandra Chisholm, physician social media assistant in the emergency department via [employer] at 1:55 PM on March 17, 2025. Electronically signed by: Triston Grullon MD 03/17/2025 02:12 PM EDT Assessment and Plan (1) Acute loss of vision: Status: Acute (2) ESRD (end stage renal disease): Status: Acute (3) Hypertension: Status: Acute Plan 89-year-old female sent from fire protection fabricator's office for acute vision loss. Exam by fire protection fabricator demonstrated bonner red spot and a concern for central retinal artery occlusion. Discussed with ophthalmology who states giant cell arteritis is in the differential. In the emergency room patient states that she can see light but no distinct images 1. Acute vision loss (exam as above) -ESR/CRP elevated. We will give methylprednisolone 1 g IV x1 pending neurology input in a.m. -2D echo to rule out embolic event -continue Plavix/high dose statin -neurology consult in a.m. (MRI details as per Neurology) -follow CBC and inflammatory markers 2. Diabetes type 2 -acceptable control on current therapies -lispro correctional scale -adjust as indicated (expect elevation with steroids) 3. End-stage renal disease on peritoneal dialysis -continue home therapies -follow renals/divalent 4.Hypertension -acceptable control on current therapies -adjust as indicated 5. Hypothyroidism -continue outpatient supplements Full code Heparin Requires at least 2 midnights going forward of inpatient hospitalization to complete workup for acute vision loss. This will also requires specialty consultation. This can not be achieved a lesser acute setting Quality Stroke Does the patient have a stroke diagnosis?: No VTE Prior VTE?: No VTE Risk Level:: Medical - moderate - high VTE Device Contraindication: Treatment Not Indicated VTE Drug Contraindication: N/A - Med Ordered
--- NOTE | 2025-03-17 17:05 | PC.NURSE ---
Please call Britni (Daughter) [phone] when patient gets a room.
--- OUTSIDE RECORDS SUMMARY | 2025-03-17 17:22 | XMS_ITS | Encounter Summary ---
Author Organization [facility] Address [address] [place] [address] [place] [phone] Phone Care Team Providers Care Drama Therapist Name Role Phone Niall Tobar MD Unavailable Vick Gibson MD Unavailable [phone] Chavo Zimmer MD Unavailable Silvino Souza PA-C Primary Care Provider [phone] Reason for Visit * Reason Onset Date Comments No Show 02/11/2025 FUV 02/11 + pt ca nceled due to feeling sick Encounter Details Date Type Department Care Team (Late st Contact Info) Description 02/11/2025 Telephone [facility] Internal Medicine [address] [place], [place] [phone] Silvino Souza PA-C [address] [place], [place] [phone] [email or web address] No Show (FUV 02/11 + pt canceled due to feeling sick) Social History Tobacco Use Types Packs/Day Years [...] PM EDT documented as of this encounter Progress Notes * Silvino Souza PA-C - 02/11/2025 5:54 PM EDT Noted * Betzaida Salazar RN - 02/11/2025 12:11 PM EDT LVM to call the office * Alanis Mcguire - 02/11/2025 12:08 PM EDT Pt called in to cancel her FUV today as she woke up felling unwell and was vomiting. FYI * Alanis Mcguire - 02/11/2025 12:08 PM EDT [facility] PEN Top Smart Phrases: 24-48 Hour No-Show Notice If caller not the patient: Name: Relationship: Cancel Appt Visit Type: FOLLOW UP VISIT Cancelation Reason: Personal Reasons Cancelation Detail: Pt sick Was Appt Reschedule: Yes Why Reschedule was not performed (W/Detail) 03/25 Awareness: I have reiterated our late cancellation policy to the caller. Agent Action: > Reason for Call: NO SHOW > Comment: Enter Cancel Appt date > Route: Route to FD if the No-Show is a future date. > Route: OXBOW SDV and Sick Visit No-Show, route to RN for rescheduling. Do not Call Center: Ensure the appt has been cancel from the future tab > Reiterate Scripting: Provide our late cancellation policy to the caller Required Scripting for Existing Patients: Thank you for notifying us about the cancellation. We will inform the provider. As a reminder, our policy requires at least 24 hours' notice for cancellations, as providers reserve time for your appointment, and short notice often makes it difficult to reschedule. You can cancel appointments anytime through your [facility]. We appreciate your understanding. Required Scripting for New Patients: Thank you for notifying us about the cancellation. We will inform the provider. Please be aware of our 48-hour cancellation policy for new patients. If you need to cancel or reschedule, we ask for at least 48 hours' notice. If you miss an appointment or cancel without sufficient notice, it will be marked as a No-Show appointment. We allow for two unforeseen circumstances under this policy. This policy ensures that our providers can manage their schedules effectively. Additionally, you can cancel appointments anytime through your [facility]. documented in this encounter Plan of Treatment Upcoming Encounters Date Type Department Care Team (Late st Contact Info) Description 11/03/2024 Procedure Pass [facility], [facility] [address] [place] [address] 03/25/2025 8:40 AM EDT Office Visit [facility] Internal Medicine [address] [place] [address] Silvino Souza PA-C [address] [place] [email or web address] 05/29/2025 3:30 PM EST Appointment [facility], [address] [address] Vick Gibson MD [address] [place] [address] 06/04/2025 4:00 PM EST Office Visit [facility] at [address] [address] Vick Gibson MD [address] [place] [address] documented as of this encounter Visit Diagnoses Not on filedocumented in this encounter Additional Health Concerns Assessment Noted Time PHQ-9 Depression Total Score: 1 08/01/19 23 11:19 AM EST PHQ-2 Depression Total Score: 0 05/12/20 24 11:09 AM EST documented as of this encounter Care Teams Drama Therapist Relationship Specialty Start Date End Date Silvino Souza PA-C [address] [place] [address] PCP - General Physician In Flight Crew Member 01/31/24 Niall Tobar MD [address] [place] [address] [place] [address] Ophthalmology 10/01/19 Vick Gibson MD [address] [place] [address] Primary Oncologist Medical Oncology 05/24/20 Chavo Zimmer MD [address] [place] [address] Nephrology 01/31/23 documented as of this encounter Additional Source Comments The information contained in this document represents components of the legal health record. It is not the complete legal health record.[facility]
--- OUTSIDE RECORDS SUMMARY | 2025-03-17 17:22 | XMS_ITS | Encounter Summary ---
Author Organization [facility] Address [address] [place] [address] Phone Care Team Providers Care Lcpc Name Role Phone Ene Menon CUSHION ASSEMBLER Primary Care Provider [phone] Niall Tobar MD Unavailable [phone] Chavo Zimmer MD Unavailable Vick Gibson MD Unavailable [phone] Zehra Azevedo PA-C Unavailable dede Chavo Zimmer MD Unavailable Ene Menon CUSHION ASSEMBLER Primary Care Provider [phone] Silvino Souza PA-C Primary Care Provider [phone] Encounter Details Date Type Department Care Team (Late st Contact Info) Description 07/12/2022 Procedure Pass [facility], Ct Scan - [address] [address] Social History Tobacco Use Types Packs/Day Years Used Date Smoking Tobacco: Former Cigarettes 2 44 0 [birth year]/1949 - 05/28/1993 Smokeless Tobacco: Never Alcohol Use Standard Drinks/Week Comments No 0 (1 standard drink = 0.6 oz pur e alcohol) Comments No Sex and Gender Information Value Date Recorded Sex Assigned at Female 11/10/2021 9:56 PM EDT Legal Sex Female 10:14 PM EDT Gender Identity Female 11/10/2021 9:56 PM EDT Sexual Orientation Straight 11/10/2021 9: 56 PM EDT documented as of this encounter Plan of Treatment Upcoming Encounters Date Type Department Care Team (Late st Contact Info) Description 11/03/2024 Procedure Pass [address] [address] 03/25/2025 8:40 AM EDT Office Visit [facility] Internal Medicine [address] [place] [address] Silvino Souza PA-C [address] [place] [address] 05/29/2025 3:30 PM EST Appointment [address] [address] Vick Gibson MD [address] [place] [address] 06/04/2025 4:00 PM EST Office [facility] at [address] [address] Vick Gibson MD [address] [place] [address] documented as of this encounter Visit Diagnoses Not on filedocumented in this encounter Additional Health Concerns Assessment Noted Time PHQ-9 Depression Total Score: 14 022 2:03 PM EST PHQ-2 Depression Total Score: 6 06/09/20 22 2:03 PM EST documented as of this encounter Care Teams Lcpc Relationship Specialty Start Date End Date Ene Menon NP PCP - General Family Medicine 03/08/18 09/04/23 Ene Menon NP [address] [place] [address] [address] [place] [address] [email or web address] PCP - General 01/18/24 01/30/24 Silvino Souza PA-C [address] [place] [email or web address] PCP - General Physician Barrel Cutter 01/31/24 Niall Tobar MD [address] [place] [address] Dr [address] [address] [place] [address] Ophthalmology 10/01/19 Chavo Zimmer MD [address] [place] [address] Dr [address] [address] [place] [address] Nephrology 10/03/19 01/30/23 Vick Gibson MD [address] [place] [address] Primary Oncologist Medical Oncology 05/24/20 Zehra Azevedo PA-C [address] [place] [address] Physician Barrel Cutter Medical Oncology 03/21/22 08/20/23 Chavo Zimmer MD [address] [place] [address] Nephrology 01/31/23 documented as of this encounter Additional Source Comments The information contained in this document represents components of the legal health record. It is not the complete legal health record.[facility]
--- OUTSIDE RECORDS SUMMARY | 2025-03-17 17:22 | XMS_ITS | Encounter Summary ---
Author Organization [facility] Address [address] [place] [address] Phone Care Team Providers Care Bagger And Stock Handler Helper Name Role Phone Ene Menon STAINED GLASS ARTIST Primary Care Provider [phone] Niall Tobar MD Unavailable Chavo Zimmer MD Unavailable Vick Gibson MD Unavailable [phone] Zehra Azevedo PA-C Unavailable dede Chavo Zimmer MD Unavailable Ene Menon STAINED GLASS ARTIST Primary Care Provider [phone] Silvino Souza PA-C Primary Care Provider [phone] Encounter Details Date Type Department Care Team (Latest Contact Info) Description 07/11/2022 Transcribe Orders [facility] Laboratory [address] [place] [address] Sabra Centeno PA-C [address] [place] [address] Incontinence of feces, unspecified fecal incontinence type (Primary Dx); Diarrhea, unspecified type; Constipation, unspecified constipation type Social History Tobacco Use Types Packs/Day Years [...] st Contact Info) Description 11/03/2024 Procedure Pass [address] [address] 03/25/2025 8:40 AM EDT Office Visit [facility] Internal Medicine [address] [place] [address] Silvino Souza PA-C [address] [place] [address] [email or web address] 05/29/2025 3:30 PM EST Appointment [address] [address] Vick Gibson MD [address] [place] [address] [phone] [email or web address] 06/04/2025 4:00 PM EST Office Visit [facility] at [address] [address] Vick Gibson MD [address] [place] [address] [phone] documented as of this encounter Results * (ABNORMAL) Lipase (07/11/2022 3:30 PM EST) LIPASE 97(H) 16 - 63 U/L [facility] Blood 07/11/2022 3:30 PM EST 07/11/2022 3:41 PM EST us Sabra Centeno PA-C LAB BLOOD ORDERABLES Final Resu lt [address] [address] * C-Reactive Protein (07/11/2022 3:30 PM EST) C REACTIVE PROTEIN <3.0 0.0 - 4.0 mg/L [facility] Blood 07/11/2022 3:30 PM EST 07/11/2022 3:41 PM EST Sabra Centeno PA-C LAB BLOOD ORDERABLES Final Resu lt Performing Organization Address City/[facility]/ZIP Co de Phone Number [address] [address] * (ABNORMAL) Comprehensive metabolic panel (07/11/2022 3:30 PM EST) Pathologist [facility] SODIUM 139 133 - 146 mmol/L [facility] POTASSIUM 5.3(H) 3.3 - 5.1 mmol/L [facility] CHLORIDE 107 96 - 108 mmol/L [facility] CO2 21 21 - 35 mmol/L [facility] BUN 49(H) 6 - 19 mg/dL [facility] CREATININE 3.90(H) 0.5 - 1.5 mg/dL [facility] GLUCOSE 97 70 - 99 mg/dL [facility] ALBUMIN 3.9 3.9 - 4.8 g/dL [facility] TOTAL PROTEIN 7.1 6.5 - 8.0 g/dL [facility] CALCIUM 9.7 8.4 - 10.3 mg/dL [facility] ALKALINE PHOSPHATASE 88 39 - 117 U/L [facility] TOTAL BILIRUBIN 0.3 0.0 - 1.2 mg/dL [facility] AST 17 0 - 37 U/L [facility] ALT 8 0 - 40 U/L [facility] GLOBULIN 3.2 1 - 4.8 g/dL [facility] EGFR 11(L) >59 mL/min/1.7 3m2 [facility] Comment:Estimated glomerular filtration rate calculated using the CKD-EPI refit equation. ANION GAP 16 10 - 20 mmol/L [facility] Blood 07/11/2022 3:30 PM EST 07/11/2022 3:41 PM EST us Sabra Centeno PA-C LAB BLOOD ORDERABLES Final Resu lt [address] [address] * (ABNORMAL) CBC (07/11/2022 3:30 PM EST) WBC 8.43 4.00 - 11.00 K/uL [facility] RBC 3.52(L) 3.72 - 5.30 M/uL [facility] HGB 10.6(L) 11.4 - 15.9 g/dL [facility] HCT 32.6(L) 34.2 - 46.8 % [facility] PLT 234 140 - 430 K/uL [facility] MCV 92.6 78.0 - 97.0 fL [facility] MCH 30.1 25.0 - 33.0 pg [facility] MCHC 32.5 32.0 - 36.0 g/dL [facility] RDW 13.8 11.0 - 16.0 % [facility] MPV 10.7 8.4 - 12.8 fl [facility] Blood 07/11/2022 3:30 PM EST 07/11/2022 3:41 PM EST us Sabra Centeno PA-C LAB BLOOD ORDERABLES Final Resu lt [address] [address] * Immunoglobulin A (07/11/2022 3:30 PM EST) IgA 170 70 - 400 mg/dL [facility] Blood 07/11/2022 3:30 PM EST 07/11/2022 3:41 PM EST us Sabra Centeno PA-C LAB BLOOD ORDERABLES Final Resu lt [facility] [address] [place] [address] * Tissue transglutaminase IgA (07/11/2022 3:30 PM EST) TTG IGA ANTIBODY <1.2 <4.0 (Negative) U/mL [facility] Blood 07/11/2022 3:30 PM EST 07/11/2022 3:41 PM EST us Sabra Centeno PA-C LAB BLOOD ORDERABLES Final Resu lt [facility] [address] [place] [address] documented in this encounter Visit Diagnoses Diagnosis Incontinence of feces, unspecified fecal incontinence type- Primary Diarrhea, unspecified type Constipation, unspecified constipation type documented in this encounter Additional Health Concerns Assessment Noted Time PHQ-9 Depression Total Score: 14 022 2:03 PM EST PHQ-2 Depression Total Score: 6 06/09/20 22 2:03 PM EST documented as of this encounter Care Teams Bagger And Stock Handler Helper Relationship Specialty Start Date End Date Ene Menon NP PCP - General Family Medicine 03/08/18 09/04/23 Ene Menon NP [address] [address] PCP - General 01/18/24 01/30/24 Silvino Souza PA-C [address] [place] [address] PCP - General Physician Electronic Lab Technician 01/31/24 Niall Tobar MD [address] [place] [address] [address] [place] [address] Ophthalmology 10/01/19 Chavo Zimmer MD [address] [place] [address] [place] [address] Nephrology 10/03/19 01/30/23 Vick Gibson MD [address] [place] [address] [email or web address] Primary Oncologist Medical Oncology 05/24/20 Zehra Azevedo PA-C [address] [place] [address] [email or web address] Physician Electronic Lab Technician Medical Oncology 03/21/22 08/20/23 Chavo Zimmer MD [address] [place] [address] Nephrology 01/31/23 documented as of this encounter Additional Source Comments The information contained in this document represents components of the legal health record. It is not the complete legal health record.[facility]
--- OUTSIDE RECORDS SUMMARY | 2025-03-17 17:22 | XMS_ITS | Clinical Summary ---
Author Organization [facility] Address [address] [place] [address] Phone Care Team Providers Care Grants Assistant Name Role Phone Niall Tobar MD Unavailable Vick Gibson MD Unavailable [phone] Chavo Zimmer MD Unavailable Silvino Souza PA-C Primary Care Provider [phone] Allergies No known active allergies Medications ascorbic [...] history of heart failure who follows with [facility] cardiology. She is maintained on 120 mg of Lasix daily. Assessment & Plan (05/12/2024 12:10 PM EST): Continue 120 mg of Lasix obtain a CMP Assessment & Plan (04/11/2024 4:05 PM EDT): Continue Lasix 120mg daily. Patient is followed by Cardiology at [facility]. Assessment & Plan (02/14/2021 2:58 PM EDT): She has continued on lasix 20 mg, asymptomatic at this time, repeat echo ordered. S/P CABG x 2 10/24/2018 Assessment & Plan (11/13/2024 11:50 AM EDT): Patient underwent a CABG followed by Cardiology at [facility]. Patient is on metoprolol succ 50mg daily, plavix 75mg daily and lipitor 80mg daily Assessment & Plan (04/11/2024 4:07 PM EDT): Patient underwent a CABG followed by Cardiology at [facility]. Patient is on metoprolol succ 50mg daily, plavix 75mg daily and lipitor 80mg daily Assessment & Plan (07/25/2022 7:54 AM EST): Asymptomatic after bypass surgery Assessment & Plan (2022 11:05 AM EST): She had two-vessel coronary artery bypass grafting in 2018 at [facility]. She feels well with no chest pain. We will continue to optimize her risk factors. Continue with aspirin, beta-gina, and statin. Assessment & Plan (02/14/2021 2:56 PM EDT): Patient has a past medical history of coronary artery disease status post two- vessel CABG in 2018 at [facility]. She has continued on aspirin, beta-gina, statin. [...] (04/11/2024 4:10 PM EDT): Patient follows with [facility] kidney whom is on HD [...] 33. Patient to continue to follow with [facility] cardiology and continue atorvastatin 80 mg [...] the left renal artery on 04/22/2020 at [facility]. She has continued on aspirin which we will continue long-term. Blood pressures appear to be better controlled. She was recommended a repeat renal artery ultrasound which I have ordered for her for June 2021. Assessment & Plan (05/11/2020 3:45 PM EST): Patient is status post a bare-metal stent to the left renal artery on 04/22/2020 at [facility]. We recommend aspirin long-term and continuing [...] Type Department Care Team Description 02/11/2025 Telephone [facility] [address] [place] [address] Silvino Souza PA-C No Show (FUV 02/11 + pt canceled due to feeling sick) 01/12/2025 Refill [facility] [address] [place] [address] Chris Stokes MD Medication Refill from Last 3 Months Immunizations [...] st Contact Info) Description 11/03/2024 Procedure Pass [address] [address] 03/25/2025 8:40 AM EDT Office Visit [facility] [address] [place] [address] Silvino Souza PA-C [address] [place] [address] [email or web address] 05/29/2025 3:30 PM EST Appointment [address] [address] Vick Gibson MD [address] [place] [address] 06/04/2025 4:00 PM EST Office Visit [facility] at [address] [address] Vick Gibson MD [address] [place] [address] Health Maintenance Due Date Last Done Comments INFLUENZA VACCINE (#1) 2025 4, 04/02/2023, 03/02/2023, Additional history exists COVID-19 VACCINE ( season) 2025 2021, 10/28/2020, 09/28/2020 HEMOGLOBIN A1C 04/01/2025 09/30/2024, 04/0 07/2024, 07/08/2024, Additional history exists DEPRESSION SCREENING 05/12/2025 05/12/2024, 08/01/19 23 DIABETIC EYE EXAM 10/17/2025 10/17/2024, , 08/03/2021, Additional history exists TSH LEVEL 11/13/2025 11/13/2024, 2 10/2024, 08/22/2024, Additional history exists Adult Td,Tdap [...] this topic Medical Devices Implanted Type Area Media Relations Manager Device Identifier Shelf Expiration Date Model / Serial / Lot Marker Ultraclip 17ga 10cm Tissue Dual Trigger Breast Ti Heart Shape Bx/5ea - [id number] Implanted:Qty: 1 on 07/09/2020 by Filiberto Medel MD at [facility] Right: Breast CR [employer] [id number] / / Marker Ultraclip 17ga 10cm Tissue Dual Trigger Breast Ti Heart Shape Bx/5ea - [id number] Implanted:Qty: 1 on 09/10/2023 by Elvira Ward MD at [facility] Right: Chest Wall [employer] [id number] / / Procedures Procedure Name Priority Date/Time Associated Diagnosis Comments TSH WITH REFLEX Routine 10/24/2024 10:37 AM EDT Elevated TSH DIABETES EYE EXAM FOR RESULT ENTRY ONLY [...] Recently Relevant to Health Maintenance Results * (ABNORMAL) TSH with reflex (10/24/2024 10:37 AM EDT) TSH 4.81(H) 0.27 - 4.20 uIU/mL [facility] Blood 10/24/2024 10:3 7 AM EDT 10/24/2024 10:40 AM EDT us Silvino Souza PA-C LAB BLOOD ORDERABLES Final Re sult [address] [address] * DIABETES EYE EXAM FOR RESULT ENTRY ONLY (10/17/2024 12:23 PM EDT) us Historical Provider HEALTH MAINTENANCE Final Result * (ABNORMAL) POCT Hemoglobin A1c (07/26/2023 10:38 AM EST) Hemoglobin A1c 6.2(A) 4.2 - 5.8 % Other 07/26/2023 10:3 8 AM EST us Ene Menon NP POINT OF CARE TEST [...] a total bone mineral density of 0.696 g/zq5lfeb a T- score of -2.0. Z score [...] density falls within the osteoporosis range. Vick Gibson MD IM BD BONE DENSITY DEXA Final Result from Last 3 Months or Most Recently Relevant to Health Maintenance Insurance MEDICARE PART A & B [facility] MEDICARE REPLACEMENT MEDICARE PART A & B MEDICARE REPLACEMENT MEDICARE PART A & B Member Subscriber Plan / Payer (Ef fective 2000-Present) Name:Paulette Martínez Member ID:[id number] Relation to Subscriber:Self Name:Paulette Martínez Subscriber ID:[id number] Payer ID:[id number] Group ID:Not on file Type:Medicare Address: [employer] [address] [place] [id number] [place] [address] MEDICARE REPLACEMENT MEDICARE PART A & B MEDICARE REPLACEMENT MEDICARE PART A & [place] [address] [place] [address] MEDICARE REPLACEMENT MEDICARE PART A & B MEDICARE REPLACEMENT MEDICARE PART A & B [facility] MEDICARE REPLACEMENT MEDICARE PART A & B [facility] MEDICARE REPLACEMENT MEDICARE PART A & B [facility] MEDICARE REPLACEMENT Advance Directives For more information, please contact: [phone] (9AM - 5PM [facility], Sunday-Sunday) Documents on File Type Date Recorded Patient Shirring Tender Expl anation Power of Park Recreation Manager * Full Code (Latest Code Status on File) Date Activated Date Inactivated Comments 08/03/2020 3:07 PM Question Answer Comments Code Status Confirmed With: Patient * Full Code Date Activated Date Inactivated Comments 08/03/2020 6:34 AM 08/03/2020 3:07 PM Question Answer Comments Code Status Confirmed With: Patient Care Teams Grants Assistant Relationship Specialty Start Date End Date Silvino Souza PA-C [address] [place] [address] [email or web address] PCP - General Physician Music Composition Teacher 01/31/24 Niall Tobar MD [address] [place] [address] [place] [address] Ophthalmology 10/01/19 Vick Gibson MD [address] [place] [address] Primary Oncologist Medical Oncology 05/24/20 Chavo Zimmer MD [address] [place] [address] Nephrology 01/31/23 Additional Source Comments The information contained in this document represents components of the legal health record. It is not the complete legal health record.[facility]
--- OUTSIDE RECORDS SUMMARY | 2025-03-17 17:22 | XMS_ITS | Encounter Summary ---
Author Organization [facility] Address [address] [place] [address] [place] [address] Phone Care Team Providers Care Assistant Media Planner Name Role Phone Ene Menon DAMAGE ADJUSTER Primary Care Provider Niall Tobar MD Unavailable Vick Gibson MD Unavailable [phone] Chavo Zimmre MD Unavailable Ene Menon DAMAGE ADJUSTER Primary Care Provider [phone] Silvino Souza PA-C Primary Care Provider [phone] Encounter Details Date Type Department Care Team (Late st Contact Info) Description 09/03/[address] [facility] at [address] [id number] Chris Stokes MD [address] [place] [address] [email or web address] History of breast cancer (Primary Dx); Lump in chest; History of mastectomy, unspecified laterality Social History Tobacco Use Types Packs/Day Years [...] with a working camera? Not on file Comments No Sex and Gender Information Value Date Recorded Sex Assigned at Female 11/10/2021 9:56 PM EDT Legal Sex Female 10:14 PM EDT Gender Identity Female 11/10/2021 9:56 PM EDT Sexual Orientation Straight 11/10/2021 9: 56 PM EDT documented as of this encounter Plan of Treatment Upcoming Encounters Date Type Department Care Team (Late st Contact Info) Description 11/03/2024 Procedure Pass [address] [address] 03/25/2025 8:40 AM EDT Office Visit [facility] [address] [place] [address] Silvino Souza PA-C [address] [place] [address] 05/29/2025 3:30 PM EST Appointment [address] [address] Vick Gibson MD [address] [place] [address] [email or web address] 06/04/2025 4:00 PM EST Office Visit [facility] at [address] [address] Vick Gibson MD [address] [place] [address] [phone] documented as of this encounter Results * (ABNORMAL) BI US BREAST LIMITED (RIGHT) (09/03/2023 4:31 PM EST) Anatomical Region Laterality Modality Breast Right, Breast Bilateral Right U ltrasound 09/03/2023 4:32 PM EST Impressions 09/03/2023 4:34 PM EST Suspicious mass in the right mastectomy bed. Ultrasound guided core biopsy is recommended. BI-RADS 4 SUSPICIOUS Results and recommendations were communicated to the patient at time of examination. Results were called to Dr. Gibson on 09/03/2023 at 4:30 PM. Narrative 09/03/2023 4:34 PM EST BI US BREAST LIMITED (RIGHT) Additional patient information: Personal history of right breast carcinoma, status post mastectomy with palpable abnormality in the mastectomy bed. TECHNIQUE: Targeted right breast ultrasound was performed. COMPARISON: Comparison is made with relevant prior imaging. FINDINGS: Targeted right ultrasound was performed at the site of palpable abnormality there is a hypoechoic, irregular mass measuring 0.6 x 0.7 x 0.5 cm. No internal vascularity is seen. Procedure Note Elvira Ward MD - 09/03/2023 BI US BREAST LIMITED (RIGHT) Additional patient information: Personal history of right breastcarcinoma, status post mastectomy with palpable abnormality in themastectomy bed. TECHNIQUE: Targeted right breast ultrasound was performed. COMPARISON: Comparison is made with relevant prior imaging. FINDINGS: Targeted right ultrasound was performed at the site of palpableabnormality there is a hypoechoic, irregular mass measuring 0.6 x 0.7 x0.5 cm. No internal vascularity is seen. IMPRESSION: Suspicious mass in the right mastectomy bed. Ultrasound guided core biopsyis recommended. BI-RADS 4 SUSPICIOUS Results and recommendations were communicated to the patient at time ofexamination. Results were called to Dr. Gibson on 09/03/2023 at 4:30 PM. us Chris Stokes MD [facility] US BREAST Final Result documented in this encounter Visit Diagnoses Diagnosis History of breast cancer Personal history of malignant neoplasm of breast Lump in chest Swelling, mass, or lump in chest History of mastectomy, unspecified laterality History of breast cancer- Primary Personal history of malignant neoplasm of breast Lump in chest Swelling, mass, or lump in chest History of mastectomy, unspecified laterality documented in this encounter Additional Health Concerns Assessment Noted Time PHQ-9 Depression Total Score: 1 08/01/19 11:19 AM EST PHQ-2 Depression Total Score: 0 02/01/20 1:19 PM EDT documented as of this encounter Care Teams Assistant Media Planner Relationship Specialty Start Date End Date Ene Menon DAMAGE ADJUSTER PCP - General Family Medicine 03/08/18 09/04/23 Ene Menon NP [address] [place] [address] PCP - General 01/18/24 01/30/24 Silvino Souza PA-C [address] [place] [address] PCP - General Physician Blood Bank Attendant 01/31/24 Niall Tobar MD [address] [place] [address] [place] [address] Ophthalmology 10/01/19 Vick Gibson MD [address] [place] [address] Primary Oncologist Medical Oncology 05/24/20 Chavo Zimmer MD [address] [place] [address] Nephrology 01/31/23 documented as of this encounter Additional Source Comments The information contained in this document represents components of the legal health record. It is not the complete legal health record.[facility]
--- OUTSIDE RECORDS SUMMARY | 2025-03-17 17:22 | XMS_ITS | Encounter Summary ---
Author Organization [facility] Address [address] [place] [address] Phone Care Team Providers Care Clinical Cytogenetics Director Name Role Phone Chris Stokes MD Unavailable [phone] Ene Menon MECHANICAL PRODUCT ENGINEER Primary Care Provider [phone] Niall Tobar MD Unavailable Chavo Zimmer MD Unavailable Vick Gibson MD Unavailable [phone] Zehra Azevedo PA-C Unavailable dede Chavo Zimmer MD Unavailable Ene Menon MECHANICAL PRODUCT ENGINEER Primary Care Provider [phone] Silvino Souza PA-C Primary Care Provider [phone] Encounter Details Date Type Department Care Team (Late st Contact Info) Description 02/28/2021 Procedure Pass [facility], [address] [address] Social History Tobacco Use Types Packs/Day Years [...] st Contact Info) Description 11/03/2024 Procedure Pass [address] [address] 03/25/2025 8:40 AM EDT Office Visit [facility] [address] [place] [address] Silvino Souza PA-C [address] [place] [address] 05/29/2025 3:30 PM EST Appointment [address] [address] Vick Gibson MD [address] [place] [address] 06/04/2025 4:00 PM EST Office Visit [facility] at [address] [address] Vick Gibson MD [address] [place] [address] documented as of this encounter Visit Diagnoses Not on filedocumented in this encounter Additional Health Concerns Infection Onset Date Last Indicated Resolved Time CoV-Exposed Comment:Recent close contact documented in the COVID-19 Amb Triage Form 06/28/2021 06/28/2021 07/23/2021 1:[address] Assessment Noted Time PHQ-2 Depression Total Score: 0 05/05/20 1:24 PM EDT documented as of this encounter Care Teams Clinical Cytogenetics Director Relationship Specialty Start Date End Date Ene Menon, MECHANICAL PRODUCT ENGINEER [address] [place] [address] PCP - General Family Medicine 03/08/18 09/04/23 Ene Menon MECHANICAL PRODUCT ENGINEER [address] [place] [address] [address] [place] [address] PCP - General 01/18/24 01/30/24 Silvino Souza PA-C [address] [place] [address] PCP - General Physician An/Sqq 89(V)15 Sonar System Journeyman 01/31/24 Chris Stokes MD [address] [place] [address] Insurance Assigned Provider 09/29/17 12/10/21 Niall Tobar MD [address] [place] [address] Dr [facility] [address] Ophthalmology 10/01/19 Chavo Zimmer MD [address] [place] [address] [place] [address] Nephrology 10/03/19 01/30/23 Vick Gibson MD [address] [place] [address] [email or web address] Primary Oncologist Medical Oncology 05/24/20 Zehra Azevedo PA-C [address] [place] [address] [email or web address] Physician An/Sqq 89(V)15 Sonar System Journeyman Medical Oncology 03/21/22 08/20/23 Chavo Zimmer MD [address] [place] [address] Nephrology 01/31/23 documented as of this encounter Additional Source Comments The information contained in this document represents components of the legal health record. It is not the complete legal health record.[facility]
--- OUTSIDE RECORDS SUMMARY | 2025-03-17 17:22 | XMS_ITS | Patient Health Record ---
Author Organization [facility] Address [address] [place] [address] Care Team Providers Care Correctional Captain Name Role Phone Silvino Souza Primary Care Provider Mallorie Marie Unavailable [phone] Allergies No Known Allergies Results Component Value [...] Problem Status W/U Status Risk Notes Problem Polyneuropathy due to type 2 diabetes mellitus (945720203) Type 2 diabetes mellitus with diabetic polyneuropathy (E11.42) Active confirmed Vital Signs Blood pressure diastolic 70 mm Hg 02/02/2025 Height 5 ft 6.5in in 02/02/2025 Blood pressure systolic 110 mm Hg 02/02/2025 Weight 165 lbs 02/02/2025 BMI 26.23 kg/m2 02/02/2025 Procedures Procedure Date Ordered Date Performed Result Body Sit e 46407-XUCOUMS NAIL, 6 OR MORE 07/24/2024 N/A 55834-Adfvmfjv Plate 07/24/2024 N/A 99152-ACXM SKIN LESIONS, 2 TO 4 07/24/2024 N/A 35389-JZRHXZH NAIL, 6 OR MORE 10/23/2024 N/A 21655-JCJY SKIN LESIONS, 2 TO 4 10/23/2024 N/A 49609-NYJAUCQ NAIL, 6 OR MORE 02/02/2025 N/A 24511-CSRA SKIN LESIONS, 2 TO 4 02/02/2025 N/A Encounters Encounter Location Date Provider Diagnosis [address] [address] 07/24/2024 Mallorie Campos Type 2 diabetes mellitus with diabetic polyneuropathy E11.42 ; Other hammer toe(s) (acquired), right foot M20.41 ; Tinea unguium B35.1 ; Pain in left foot M79.672 ; Other hammer toe(s) (acquired), left foot M20.42 ; Ingrown nail L60.0 ; Hallux valgus of right foot M20.11 and Hallux valgus of left foot M20.[address] [address] 10/23/2024 Malloriejamel Campos Type 2 diabetes mellitus with diabetic polyneuropathy E11.42 and Tinea unguium B35.[address] [address] 02/02/2025 Mallorie Black Type 2 diabetes mellitus with diabetic polyneuropathy E11.42 ; Tinea unguium B35.1 ; Pain in right toe(s) M79.674 ; Contusion of lesser toe of right foot without damage to nail, initial encounter S90.121A and Closed nondisplaced fracture of proximal phalanx of lesser toe of right foot, initial encounter S92.514A [address] [address] 03/24/2024 Mallorie Black Assessments Encounter Date Diagnosis (ICD Code) Assessment Notes Treatment Notes Treatment Clinical Notes Section Notes 10/23/2024 Type 2 diabetes mellitus with diabetic polyneuropathy (ICD-10 - E11.42) 10/23/2024 Tinea unguium (ICD-10 - B35.1) 02/02/2025 Type 2 diabetes mellitus with diabetic polyneuropathy (ICD-10 - E11.42) 02/02/2025 Tinea unguium (ICD-10 - B35.1) 07/24/2024 Other hammer toe(s) (acquired), right foot (ICD-10 - M20.41) Patient Educated with: DIABETIC FOOT CARE INSTRUCTIONS. pdf (DIABETIC FOOT CARE INSTRUCTIONS. pdf) 07/24/2024 Type 2 diabetes mellitus with diabetic polyneuropathy (ICD-10 - E11.42) 07/24/2024 Tinea unguium (ICD-10 - B35.1) 02/02/2025 Pain in right toe(s) (ICD-10 - M79.674) 02/02/2025 Contusion of lesser toe of right foot without damage to nail, initial encounter (ICD-10 - S90.121A) 07/24/2024 Pain in left foot (ICD-10 - M79.672) 07/24/2024 Other hammer toe(s) (acquired), left foot (ICD-10 - M20.42) 02/02/2025 Closed nondisplaced fracture of proximal phalanx of lesser toe of right foot, initial encounter (ICD-10 - S92.514A) 07/24/2024 Ingrown nail (ICD-10 - L60.0) 07/24/2024 Hallux valgus of right foot (ICD-10 - M20.11) 07/24/2024 Hallux valgus of left foot (ICD-10 - M20.12) 10/23/2024 Other Plan Of Treatment Pending Test Test Name Order Date X ray : Foot, right 3V 03/17/2013 X ray : Foot, right 3V 02/02/2025 01989-MHTIOWF NAIL, 6 OR MORE 02/02/2025 21020-FUJJXQW NAIL, 6 OR MORE 07/24/2024 77931-GCRCIPS NAIL, 6 OR MORE 10/23/2024 22934-LIOLAGB NAIL, 6 OR MORE 02/05/2023 58132-FMJTUUY NAIL, 6 OR MORE 05/14/2023 82206-ICIOFEL NAIL, 6 OR MORE 08/27/2023 05860-TYAOGBC NAIL, 6 OR MORE 12/10/2023 17360-IHHXDZT NAIL, 6 OR MORE 05/13/2018 65696-QWLAVXJ NAIL, 6 OR MORE 08/05/2018 79412-LVGUDJA NAIL, 6 OR MORE 10/28/2018 07011-RBKJUJG NAIL, 6 OR MORE 01/20/2019 06566-YQPVGRQ NAIL, 6 OR MORE 04/17/2019 79537-NNITTGZ NAIL, 6 OR MORE 07/10/2019 26374-PEPFEOT NAIL, 6 OR MORE 02/09/2020 19785-NSPRLOO NAIL, 6 OR MORE 05/17/2020 62294-IKKPBLD NAIL, 6 OR MORE 08/23/2020 04391-RHTOHWZ NAIL, 6 OR MORE 11/22/2020 81053-HCHBXIZ NAIL, 6 OR MORE 05/19/2021 91835-GLRWUXV NAIL, 6 OR MORE 09/01/2021 02848-XXQTWUU NAIL, 6 OR MORE 02/27/2022 41542-AEBCHDS NAIL, 6 OR MORE 06/13/2022 71436-YSWXJKW NAIL, 6 OR MORE 11/21/2021 68706-EWFPYRF NAIL, 6 OR MORE 11/06/2022 14002-RNGBPQO NAIL, 6 OR MORE 03/17/2013 77615-VJMZPTL NAIL, 6 OR MORE 06/04/2013 95210-YODZVSU NAIL, 6 OR MORE 09/03/2013 83643-AVOVUUQ NAIL, 6 OR MORE 12/08/2013 34087-KENBAWU NAIL, 6 OR MORE 05/25/2014 47446-GSWPYBT NAIL, 6 OR MORE 08/12/2014 78042-ROEMIHB NAIL, 6 OR MORE 10/22/2014 20968-FZCYAJT NAIL, 6 OR MORE 01/11/2015 83052-OUVDFQG NAIL, 6 OR MORE 03/12/2014 12214-JOSCUOD NAIL, 6 OR MORE 04/05/2015 81583-UESAPDX NAIL, 6 OR MORE 10/02/2016 76866-UDREPUV NAIL, 6 OR MORE 12/25/2016 96157-GFFERNX NAIL, 6 OR MORE 03/19/2017 05656-AWCOHHW NAIL, 6 OR MORE 06/11/2017 24439-YYSDLRK NAIL, 6 OR MORE 09/03/2017 94766-UJGOVRU NAIL, 6 OR MORE 11/19/2017 60453-YMQIUIK NAIL, 6 OR MORE 02/11/2018 95741-Wlpefcwp Plate 04/05/2015 67509-Tlabszto Plate 03/12/2014 94051-Phydkmgz Plate 01/11/2015 09677-Qkybasvt Plate 10/22/2014 48400-Nhisvwsl Plate 08/12/2014 13556-Rbztdjhw Plate 05/25/2014 13658-Bzkhthxx Plate 12/08/2013 96409-Tpequsda Plate 09/03/2013 70065-Kcwrklaz Plate 07/24/2024 88452-Zohqwmlw Plate Each Additional 10/2013 45074-Wwxhcnvs Plate Each Additional 03/2014 55147-Qrlopfbo Plate Each Additional 87862-Wyjrwwgo Plate Each Additional 05/2015 90638-Hlniiscn Plate Each Additional 01542-Hnwdztsu Plate Each Additional 36039-Uzmbrgwi Plate Each Additional 10/2014 60726-Iwlngwir Plate Each Additional 05/2014 83183-RWHZ SKIN LESIONS, OVER 4 06/17/20 15 85183-HVXB SKIN LESIONS, OVER 4 08/30/19 16 83511-YJKL SKIN LESIONS, OVER 4 11/22/19 16 94603-MTAD SKIN LESIONS, OVER 4 02/02/20 16 37371-PGRX SKIN LESIONS, OVER 4 04/13/20 16 52156-CQUO SKIN LESIONS, OVER 4 07/10/19 17 18211-XHJJ SKIN LESIONS, 2 TO 4 04/05/20 15 23431-OHJD SKIN LESIONS, 2 TO 4 10/03/19 17 07366-SBKS SKIN LESIONS, 2 TO 4 12/26/19 17 19138-INWT SKIN LESIONS, 2 TO 4 06/11/20 17 92557-HDYV SKIN LESIONS, 2 TO 4 03/19/20 17 32259-DFAX SKIN LESIONS, 2 TO 4 05/13/20 18 22651-MXFP SKIN LESIONS, 2 TO 4 02/12/20 18 42104-TWEA SKIN LESIONS, 2 TO 4 09/04/19 18 01262-ZRYQ SKIN LESIONS, 2 TO 4 11/20/19 18 36830-IVZS SKIN LESIONS, 2 TO 4 03/12/20 14 23329-IQFD SKIN LESIONS, 2 TO 4 01/12/20 15 09395-NKBS SKIN LESIONS, 2 TO 4 10/23/19 15 34896-XDDQ SKIN LESIONS, 2 TO 4 08/12/19 15 46872-FPHE SKIN LESIONS, 2 TO 4 05/25/20 14 29217-IHUH SKIN LESIONS, 2 TO 4 12/09/19 14 56838-SKRH SKIN LESIONS, 2 TO 4 09/04/19 14 99293-CUPO SKIN LESIONS, 2 TO 4 06/04/20 13 26382-OLGH SKIN LESIONS, 2 TO 4 03/17/20 13 31183-HRLQ SKIN LESIONS, 2 TO 4 10/24/19 25 92719-MWBH SKIN LESIONS, 2 TO 4 02/03/20 25 22048-WXAQ SKIN LESIONS, 2 TO 4 07/24/19 56477-SXOL SKIN LESIONS, 2 TO 4 12/10/19 24 09697-XZVC SKIN LESIONS, 2 TO 4 08/27/19 24 85599-PAGK SKIN LESIONS, 2 TO 4 05/14/20 49326-TKGY SKIN LESIONS, 2 TO 4 02/06/20 23 24630-GHSF SKIN LESIONS, 2 TO 4 02/28/20 22 68429-RVOL SKIN LESIONS, 2 TO 4 06/13/20 73690-KOSJ SKIN LESIONS, 2 TO 4 11/07/19 44757-DXQX SKIN LESIONS, 2 TO 4 11/22/19 16106-ZEJD SKIN LESIONS, 2 TO 4 09/02/19 22 07539-KVRV SKIN LESIONS, 2 TO 4 05/19/20 21 24690-AYEA SKIN LESIONS, 2 TO 4 11/23/19 21 21058-GOBW SKIN LESIONS, 2 TO 4 08/23/19 21 61996-LIBP SKIN LESIONS, 2 TO 4 05/17/20 20 44686-MOQK SKIN LESIONS, 2 TO 4 02/09/20 20 76213-NJJE SKIN LESIONS, 2 TO 4 07/10/19 20 78362-UPTO SKIN LESIONS, 2 TO 4 04/17/20 19 04687-XEYS SKIN LESIONS, 2 TO 4 01/21/20 19 18321-VDKG SKIN LESIONS, 2 TO 4 10/29/19 19 97395-LJJH SKIN LESIONS, 2 TO 4 08/05/19 P5887-JDAAWEGU DYSTROPHIC NAILS ANY # I6053-PADLHLYY DYSTROPHIC NAILS ANY # E4208-RDJTSLWQ DYSTROPHIC NAILS ANY # S4775-NKKNWXGO DYSTROPHIC NAILS ANY # M8285-XVVICBOD DYSTROPHIC NAILS ANY # E8883-LWBFARKF DYSTROPHIC NAILS ANY # 63485,G0026-SAU TENDON SHEATH/LIGAMENT 0 02/02/2016,X5520-WRN TENDON SHEATH/LIGAMENT 1 50,J6327-JGO TENDON SHEATH/LIGAMENT 0 12/27/2015 Next Appt Details Provider Name:Mallorie Campos , 05/11/2025 03:00:00 PM, [address] [place], [address], Insurance Providers Payer Name Payer Address Payer Phone Subscriber Number Group Number Insured Name Patient Relationship to Insured Coverage Start Date Coverage End Date [employer] Medicare Adv-[id number] [address] [address] [place] [address] [id number] Paulette Martínez Self - patient is the [...] 10/07/2020 Hospitalization History Reason Date(Month/[place] [facility] [place] [facility]- [facility], 1 week stay, went to rehab 2022 [facility]- Stent put in leading to kidney 04/02 08[place] [facility] [place] cance r 04/2017 Admitted to [facility] x5 days;pnom onia 02/23/2015-02/23/2015
--- OUTSIDE RECORDS SUMMARY | 2025-03-17 17:22 | XMS_ITS | Encounter Summary ---
Author Organization [facility] Address [address] [place] [address] [place] [address] Phone Care Team Providers Care Jailor Name Role Phone Ene Menon RN RECRUITMENT Primary Care Provider [phone] Niall Tobar MD Unavailable Vick Gibson MD Unavailable [phone] Chavo Zimmer MD Unavailable Ene Menon RN RECRUITMENT Primary Care Provider [phone] Silvino Souza PA-C Primary Care Provider [phone] Encounter Details Date Type Department Care Team (Late st Contact Info) Description 09/03/2023 Procedure Pass [facility], [address] [address] Social History Tobacco Use Types Packs/Day Years [...] st Contact Info) Description 11/03/2024 Procedure Pass [address] [address] 03/25/2025 8:40 AM EDT Office Visit [facility] Internal Medicine [address] [place] [address] Silvino Souza PA-C [address] [place] [address] [email or web address] 05/29/2025 3:30 PM EST Appointment [address] [address] Vick Gibson MD [address] [place] [address] 06/04/2025 4:00 PM EST Office Visit [facility] at [address] [address] Vick Gibson MD [address] [place] [address] documented as of this encounter Visit Diagnoses Not on filedocumented in this encounter Additional Health Concerns Assessment Noted Time PHQ-9 Depression Total Score: 1 08/01/19 23 11:19 AM EST PHQ-2 Depression Total Score: 0 02/01/20 1:19 PM EDT documented as of this encounter Care Teams Jailor Relationship Specialty Start Date End Date Ene Menon, RN RECRUITMENT PCP - General Family Medicine 03/08/18 09/04/23 Ene Menon NP [address] [place] [address] 6 [place] [address] PCP - General 01/18/24 01/30/24 Silvino Souza PA-C [address] [place] [address] PCP - General Physician National Sales Consultant 01/31/24 Niall Tobar MD [address] [place] [address] [place] [address] Ophthalmology 10/01/19 Vick Gibson MD [address] [place] [address] Primary Oncologist Medical Oncology 05/24/20 Chavo Zimmer MD [address] [place] [address] Nephrology 01/31/23 documented as of this encounter Additional Source Comments The information contained in this document represents components of the legal health record. It is not the complete legal health record.[facility]
--- OUTSIDE RECORDS SUMMARY | 2025-03-17 17:22 | XMS_ITS | Encounter Summary ---
Author Organization [facility] Address [address] [place] [address] Phone Care Team Providers Care Mail Technician Name Role Phone Chris Stokes MD Unavailable [phone] Ene Menon BARREL RIFLER BUTTON Primary Care Provider [phone] Niall Tobar MD Unavailable Chavo Zimmer MD Unavailable Vick Gibson MD Unavailable [phone] Zehra Azevedo PA-C Unavailable dede Chavo Zimmer MD Unavailable Ene Menon BARREL RIFLER [employer]TON Primary Care Provider [phone] Silvino Souza PA-C Primary Care Provider [phone] Encounter Details Date Type Department Care Team (Late st Contact Info) Description 02/14/2021 Procedure Pass [facility] [address] [place] [address] Social History Tobacco Use Types Packs/Day Years [...] st Contact Info) Description 11/03/2024 Procedure Pass [address] [address] 03/25/2025 8:40 AM EDT Office Visit [facility] Internal Medicine [address] [place] [address] Silvino Souza PA-C [address] [place] [address] [email or web address] 05/29/2025 3:30 PM EST Appointment [address] [address] Vick Gibson MD [address] [place] [address] 06/04/2025 4:00 PM EST Office Visit [facility] at [address] [address] Vick Gibson MD [address] [place] [address] documented as of this encounter Visit Diagnoses Not on filedocumented in this encounter Additional Health Concerns Infection Onset Date Last Indicated Resolved Time CoV-Exposed Comment:Recent close contact documented in the COVID-19 Amb Triage Form 06/28/2021 06/28/2021 07/23/2021 1:[address] Assessment Noted Time PHQ-2 Depression Total Score: 0 05/05/20 21 1:24 PM EDT documented as of this encounter Care Teams Mail Technician Relationship Specialty Start Date End Date Ene Menon, BARREL RIFLER BUTTON [address] [place] [address] [email or web address] PCP - General Family Medicine 03/08/18 09/04/23 Ene Menon NP [address] [place] [address] PCP - General 01/18/24 01/30/24 Silvino Souza PA-C [address] [place] [address] [email or web address] PCP - General Physician Fire Hazard Inspector 01/31/24 Chris Stokes MD [address] [place] [address] [email or web address] Insurance Assigned Provider 09/29/17 12/10/21 Niall Tobar MD [address] [place] [address] Dr [address] [place] [address] Ophthalmology 10/01/19 Chavo Zimmer MD [address] [place] [address] [place] [address] Nephrology 10/03/19 01/30/23 Vick Gibson MD [address] [place] [address] [email or web address] Primary Oncologist Medical Oncology 05/24/20 Zehra Azevedo PA-C [address] [place] [address] [email or web address] Physician Fire Hazard Inspector Medical Oncology 03/21/22 08/20/23 Chavo Zimmer MD [address] [place] [address] Nephrology 01/31/23 documented as of this encounter Additional Source Comments The information contained in this document represents components of the legal health record. It is not the complete legal health record.[facility]
--- OUTSIDE RECORDS SUMMARY | 2025-03-17 17:22 | XMS_ITS | Encounter Summary ---
Author Organization [facility] Address [address] [place] [address] [place] [address] Phone Care Team Providers Care Die Trouble Shooter Name Role Phone Chris Stokes MD Unavailable [phone] Ene Menon VENEER SAMPLE MAKER Primary Care Provider Niall Tobar MD Unavailable Chavo Zimmer MD Unavailable Vick Gibson MD Unavailable [phone] Zehra Azevedo PA-C Unavailable dede Chavo Zimmer MD Unavailable Ene Menon VENEER SAMPLE MAKER Primary Care Provider Silvino Souza PA-C Primary Care Provider [phone] Encounter Details Date Type Department Care Team (Late st Contact Info) Description 02/14/2021 Transcribe [facility] [address] [facility] 3rd Floor, [address] [place] [address] Ava Gipson PA-C [address] [place] [address] [email or web address] Social History Tobacco Use Types Packs/Day Years [...] st Contact Info) Description 11/03/2024 Procedure Pass [address] [address] 03/25/2025 8:40 AM EDT Office Visit [facility] Internal Medicine [address] [place] [address] Silvino Souza PA-C [address] [place] [address] 05/29/2025 3:30 PM EST Appointment [address] [address] Vick Gibson MD [address] [place] [address] 06/04/2025 4:00 PM EST Office Visit [facility] at [address] [address] Vick Gibson MD [address] [place] [address] documented as of this encounter Visit Diagnoses Not on filedocumented in this encounter Additional Health Concerns Infection Onset Date Last Indicated Resolved Time CoV-Exposed Comment:Recent close contact documented in the COVID-19 Amb Triage Form 06/28/2021 06/28/2021 07/23/2021 1:[address] Assessment Noted Time PHQ-2 Depression Total Score: 0 12/22/19 21 1:11 PM EDT documented as of this encounter Care Teams Die Trouble Shooter Relationship Specialty Start Date End Date Ene Menon, VENEER SAMPLE MAKER [address] [place] [address] [email or web address] PCP - General Family Medicine 03/08/18 09/04/23 Ene Menon, VENEER SAMPLE MAKER [address] [place] [address] PCP - General 01/18/24 01/30/24 Silvino Souza PA-C [address] [place] [address] [email or web address] PCP - General Physician Metal Bonding Press Operator 01/31/24 Chris Stokes MD [address] [place] [address] [email or web address] Insurance Assigned Provider 09/29/17 12/10/21 Niall Tobar MD [address] [place] [address] [place] [address] Ophthalmology 10/01/19 Chavo Zimmer MD [address] [place] [address] [place] [address] Nephrology 10/03/19 01/30/23 Vick Gibson MD [address] [place] [address] [email or web address] Primary Oncologist Medical Oncology 05/24/20 Zehra Azevedo PA-C [address] [place] [address] [email or web address] Physician Metal Bonding Press Operator Medical Oncology 03/21/22 08/20/23 Chavo Zimmer MD [address] [place] [address] Nephrology 01/31/23 documented as of this encounter Additional Source Comments The information contained in this document represents components of the legal health record. It is not the complete legal health record.[facility]
--- OUTSIDE RECORDS SUMMARY | 2025-03-17 17:22 | XMS_ITS | Encounter Summary ---
Author Organization [facility] Address [address] [place] [address] Phone Care Team Providers Care Web Search Evaluator Name Role Phone Ene Menon APPLICATION CHEMIST Primary Care Provider [phone] Niall Tobar MD Unavailable [phone] Chavo Zimmer MD Unavailable Vick Gibson MD Unavailable [phone] Zehra Azevedo PA-C Unavailable dede Chavo Zimmer MD Unavailable Ene Menon APPLICATION CHEMIST Primary Care Provider [phone] Silvino Souza PA-C Primary Care Provider [phone] Encounter Details Date Type Department Care Team (Latest Contact Info) Description 10/04/[address] [facility] Laboratory [address]nd [place] [address] Sbara Centeno PA-C [address] [place] [address] Incontinence of feces, unspecified fecal incontinence type (Primary Dx); Anemia, unspecified type Social History Tobacco Use Types Packs/Day [...] st Contact Info) Description 11/03/2024 Procedure Pass [address] [address] 03/25/2025 8:40 AM EDT Office Visit [facility] Internal Medicine 40 [place] [address] Silvino Souza PA-C 40 [place], [place] [id number] 05/29/2025 3:30 PM EST Appointment [address] [address] Vick Gibson MD [address] [place] [address] 06/04/2025 4:00 PM EST Office Visit [facility] at [address] [address] Vick Gibson MD [address] [place] [address] documented as of this encounter Results * Pancreatic Elastase, Stool (10/19/2022 2:45 PM EDT) Pancreatic Elastase, Feces >500 >200 (Normal) mcg/g [facility] MED/PATH SUPERIOR Stool (Stool) 10/19/2022 2:4 5 PM EDT 10/19/2022 2:59 PM EDT us Sabra Centeno PA-C BODY FLUIDS AND STOOLS ORDERABL ES Final Result Performing Organization Address [facility] Co de Phone Number [facility] LAB MED/PATH [address] [place] [address] * Stool fat/fiber exam (10/19/2022 2:45 PM EDT) FATTY ACID NORMAL NORMAL [facility] Neutral Fat, stool NORMAL NORMAL [facility] Stool (Stool) 10/19/2022 2:4 5 PM EDT 10/19/2022 2:59 PM EDT us Sabra Centeno PA-C BODY FLUIDS AND STOOLS ORDERABL ES Final Result Performing Organization Address [facility] Co de Phone Number [address] [address] * Fecal immunochemical test x1 (FIT) (10/19/2022 2:45 PM EDT) Immuno Fecal Occult Negative Negative [facility] Stool (Stool) 10/19/2022 2:4 5 PM EDT 10/19/2022 2:59 PM EDT Sabra Centeno PA-C BODY FLUIDS AND STOOLS ORDERABL ES Final Result Performing Organization Address [facility] Co de Phone Number [address] [address] * Calprotectin, stool (10/19/2022 2:45 PM EDT) STOOL CALPROTECTIN 65 mcg/g [facility] Comment: (NOTE) Reference Range: <50 Normal 50-120 Borderline >120 Elevated Calprotectin in Crohn's disease and ulcerative colitis can be five to several thousand times above the reference population (50 mcg/g or less). Levels are usually 50 mcg/g or less in healthy patients and with irritable bowel syndrome. Repeat testing in 4-6 weeks is suggested for borderline values. Stool (Stool) 10/19/2022 2:4 5 PM EDT 10/19/2022 2:59 PM EDT Sabra Centeno PA-C BODY FLUIDS AND STOOLS ORDERABL ES Final Result [facility] [address] [place] [address], [facility] [phone] * (ABNORMAL) Vitamin B12 (10/04/2022 3:59 PM EDT) VITAMIN B12 1,327(H) 232 - 1,245 pg/mL [facility] Blood 10/04/2022 3:59 PM EDT 10/04/2022 4:12 PM EDT us Sabra Centeno PA-C LAB BLOOD ORDERABLES Final Resu lt Performing Organization Address [facility]/ZIP Co de Phone Number [address] [address] * Ferritin (10/04/2022 3:59 PM EDT) FERRITIN 85 13 - 150 ug/L [facility] Blood 10/04/2022 3:59 PM EDT 10/04/2022 4:12 PM EDT Sabra Centeno PA-C LAB BLOOD ORDERABLES Final Resu lt Performing Organization Address [facility]/ZIP Co de Phone Number [address] [address] * Folate (10/04/2022 3:59 PM EDT) FOLIC ACID 8.0 4.2 - 19.9 ng/mL [facility] Blood 10/04/2022 3:59 PM EDT 10/04/2022 4:12 PM EDT us Sabra Centeno PA-C LAB BLOOD ORDERABLES Final Resu lt Performing Organization Address [facility]/ZIP Co de Phone Number [address] [address] * Iron and iron binding capacity (10/04/2022 3:59 PM EDT) IRON 90 30 - 160 ug/dL [facility] IRON BINDING CAPACITY 288 228 - 428 ug/dL [facility] TRANSFERRIN SATURAT. 31 15 - 50 % [facility] Blood 10/04/2022 3:59 PM EDT 10/04/2022 4:12 PM EDT us Sabra Centeno PA-C LAB BLOOD ORDERABLES Final Resu lt Performing Organization Address [facility] Co de Phone Number [address] [address] * (ABNORMAL) Lipase (10/04/2022 3:59 PM EDT) LIPASE 82(H) 16 - 63 U/L [facility] Blood 10/04/2022 3:59 PM EDT 10/04/2022 4:12 PM EDT us Sabra Centeno PA-C LAB BLOOD ORDERABLES Final Resu lt Performing Organization Address [facility]/ZIP Co de Phone Number [address] [address] * C-Reactive Protein (10/04/2022 3:59 PM EDT) C REACTIVE PROTEIN <3.0 0.0 - 4.0 mg/L [facility] Blood 10/04/2022 3:59 PM EDT 10/04/2022 4:12 PM EDT us Sabra Centeno PA-C LAB BLOOD ORDERABLES Final Resu lt [facility] [address] [place] [address] documented in this encounter Visit Diagnoses Diagnosis Incontinence of feces, unspecified fecal incontinence type- Primary Anemia, unspecified type documented in this encounter Additional Health Concerns Assessment Noted Time PHQ-9 Depression Total Score: 1 08/01/19 11:19 AM EST PHQ-2 Depression Total Score: 0 08/01/19 11:19 AM EST documented as of this encounter Care Teams Web Search Evaluator Relationship Specialty Start Date End Date Ene Menon APPLICATION CHEMIST PCP - General Family Medicine 03/08/18 09/04/23 Ene Menon NP [address] [place] [address] PCP - General 01/18/24 01/30/24 Silvino Souza PA-C [address] [place] [address] PCP - General Physician Concrete Tester 01/31/24 Niall Tobar MD [address] [place] [address] [address] [place] [address] Ophthalmology 10/01/19 Chavo Zimmer MD [address] [place] [address] [address] [place] [address] Nephrology 10/03/19 01/30/23 Vick Gibson MD [address] [place] [address] Primary Oncologist Medical Oncology 05/24/20 Zehra Azevedo PA-C [address] [place] [address] [email or web address] Physician Concrete Tester Medical Oncology 03/21/22 08/20/23 Chavo Zimmer MD [address] [place] [address] Nephrology 01/31/23 documented as of this encounter Additional Source Comments The information contained in this document represents components of the legal health record. It is not the complete legal health record.[facility]
--- OUTSIDE RECORDS SUMMARY | 2025-03-17 17:22 | XMS_ITS | Encounter Summary ---
Author Organization [facility] Address [address] [place] [address] [place] [address] Phone Care Team Providers Care Advertising Production Manager Name Role Phone Niall Tobar MD Unavailable Vick Gibson MD Unavailable [phone] Chavo Zimmer MD Unavailable Ene Menon NP Primary Care Provider [phone] Silvino Souza-C Primary Care Provider [phone] Encounter Details Date Type Department Care Team (Late st Contact Info) Description 11/19/2023 Procedure Pass [facility], [address] [address] Social History Tobacco Use Types Packs/Day Years [...] Contact Info) Description 11/03/2024 Procedure Pass [address] [address] 03/25/2025 8:40 AM EDT Office Visit [facility] Internal Medicine [address] [place] [address] Silvino Souza PA-C [address] [place] [address] [email or web address] 05/29/2025 3:30 PM EST Appointment [address] [address] Vick Gibson MD [address] [place] [address] 06/04/2025 4:00 PM EST Office Visit [facility] at [address] [address] Vick Gibson MD [address] [place] [address] documented as of this encounter Visit Diagnoses Not on filedocumented in this encounter Additional Health Concerns Assessment Noted Time PHQ-9 Depression Total Score: 1 08/01/19 11:19 AM EST PHQ-2 Depression Total Score: 0 02/01/20 1:19 PM EDT documented as of this encounter Care Teams Advertising Production Manager Relationship Specialty Start Date End Date Ene Menon, MERCHANDISE FLOW TEAM LEADER [address] [place] [address] [address] [place] [address] PCP - General 01/18/24 01/30/24 Silvino Souza PA-C [address] [place] [address] [email or web address] PCP - General Physician Assembly Loader 01/31/24 Niall Tobar MD [address] [place] [address] [place] [address] Ophthalmology 10/01/19 Vick Gibson MD [address] [place] [address] [email or web address] Primary Oncologist Medical Oncology 05/24/20 Chavo Zimmer MD [address] [place] [address] Nephrology 01/31/23 documented as of this encounter Additional Source Comments The information contained in this document represents components of the legal health record. It is not the complete legal health record.[facility]
--- OUTSIDE RECORDS SUMMARY | 2025-03-17 17:22 | XMS_ITS | Encounter Summary ---
Author Organization [facility] Address [address] [place] [address] Phone Care Team Providers Care Alteration Workroom Supervisor Name Role Phone Ene Menon CONCESSION CASHIER Primary Care Provider [phone] Niall Tobar MD Unavailable Chavo Zimmer MD Unavailable Vick Gibson MD Unavailable [phone] Zehra Azevedo PA-C Unavailable dede Chavo Zimmer MD Unavailable Ene Menon CONCESSION CASHIER Primary Care Provider [phone] Silvino SouzaC Primary Care Provider [phone] Reason for Referral * - Closed Specialty Diagnoses / Procedures Referred By Albert garcia Referred To Contact Radiology Diagnoses Claudication in peripheral vascular disease Procedures US Lower Extremity Arteries Duplex Complete (Bilateral) Roger Ochoa MD Phone: tel: fax: [email or web address] Referral ID Status Reason Start Date Expiration Date Visits Re quested Visits Authorized [id number] Closed 05/10/2022 05/10/2023 1 1 Encounter Details Date Type Department Care Team (Latest Contact Info) Description 05/10/2022 Ancillary Orders [facility] [address] [place] [address] Roger Ochoa MD [address] [facility], [address] [place] [address] [email or web address] Claudication in peripheral vascular disease Social History Tobacco Use Types Packs/Day Years [...] st Contact Info) Description 11/03/2024 Procedure Pass [address] [address] 03/25/2025 8:40 AM EDT Office Visit [facility] Internal Medicine 40 [place] [address] Silvino Souza PA-C 40 [place] [address] 05/29/2025 3:30 PM EST Appointment [address] [address] Vick Gibson MD [address] [place] [address] 06/04/2025 4:00 PM EST Office Visit [facility] at [address] [address] Vick Gibson MD 30 [place] [address] [email or web address] documented as of this encounter Results * US Lower Extremity Arteries Duplex Complete (Bilateral) (05/10/2022 10:44 AM EST) Anatomical Region Laterality Modality Ultrasound Narrative 05/16/2022 8:28 AM EST See scanned report Procedure Note Filiberto Johansen, DO - 05/16/2022 See scanned report us Roger Ochoa MD CV US VASCULAR Final Resul t documented in this encounter Visit Diagnoses Diagnosis Essential hypertension Unspecified essential hypertension History of abdominal aortic aneurysm (AAA) repair S/P CABG x 2 Postsurgical aortocoronary bypass status Renal artery stenosis Atherosclerosis of renal artery PVD (peripheral vascular disease) Unspecified peripheral vascular disease Claudication in peripheral vascular disease Claudication in peripheral vascular disease documented in this encounter Additional Health Concerns Assessment Noted Time PHQ-2 Depression Total Score: 0 05/05/20 21 1:24 PM EDT documented as of this encounter Care Teams Alteration Workroom Supervisor Relationship Specialty Start Date End Date Ene Menon NP PCP - General Family Medicine 03/08/18 09/04/23 Ene Menon NP [address] [place] [address] PCP - General 01/18/24 01/30/24 Silvino Souza PA-C [address] [place] [address] [email or web address] PCP - General Physician Biscuit Packer 01/31/24 Niall Tobar MD [address] [place] [address] [place] [address] Ophthalmology 10/01/19 Chavo Zimmer MD [address] [place] [address] [place] [address] Nephrology 10/03/19 01/30/23 Vick Gibson MD [address] [place] [address] Primary Oncologist Medical Oncology 05/24/20 Zehra Azevedo PA-C [address] [place] [address] [email or web address] Physician Biscuit Packer Medical Oncology 03/21/22 08/20/23 Chavo Zimmer MD [address] [place] [address] Nephrology 01/31/23 documented as of this encounter Additional Source Comments The information contained in this document represents components of the legal health record. It is not the complete legal health record.[facility]
--- OUTSIDE RECORDS SUMMARY | 2025-03-17 17:22 | XMS_ITS | Encounter Summary ---
Author Organization [facility] Address [address] [place] [address] Phone Care Team Providers Care Butcher Chicken And Fish Name Role Phone Ene Menon CULLET CRUSHER Primary Care Provider [phone] Niall Tobar MD Unavailable Chavo Zimmer MD Unavailable Vick Gibson MD Unavailable [phone] Zehra Azevedo PA-C Unavailable dede Chavo Zimmer MD Unavailable Ene Menon CULLET CRUSHER Primary Care Provider [phone] Silvino Souza PA-C Primary Care Provider [phone] Encounter Details Date Type Department Care Team (Late st Contact Info) Description 03/28/2022 Procedure Pass [address] [address] Social History Tobacco Use Types Packs/Day Years [...] st Contact Info) Description 11/03/2024 Procedure Pass [address] [address] 03/25/2025 8:40 AM EDT Office Visit [facility] Internal Medicine 40 [place] [address] Silvino Souza PA-C 40 [place] [address] 05/29/2025 3:30 PM EST Appointment [address] [address] Vick Gibson MD [address] [place] [address] 06/04/2025 4:00 PM EST Office Visit [facility] at [address] [address] Vick Gibson MD [address] [place] [address] documented as of this encounter Visit Diagnoses Not on filedocumented in this encounter Additional Health Concerns Assessment Noted Time PHQ-9 Depression Total Score: 1 08/01/19 23 11:19 AM EST PHQ-2 Depression Total Score: 0 08/01/19 23 11:19 AM EST documented as of this encounter Care Teams Butcher Chicken And Fish Relationship Specialty Start Date End Date Ene Menon NP PCP - General Family Medicine 03/08/18 09/04/23 Ene Menon NP [address] [place] [address] 6 [place] [address] PCP - General 01/18/24 01/30/24 Silvino Souza PA-C [address] [place] [address] PCP - General Physician Activity Therapy Specialist 01/31/24 Niall Tobar MD [address] [place] [address] Dr HOSKINS [address] [place] [address] Ophthalmology 10/01/19 Chavo Zimmer MD [address] [place] [address] Dr HOSKINS [address] [place] [address] Nephrology 10/03/19 01/30/23 Vick Gibson MD [address] [place] [address] Primary Oncologist Medical Oncology 05/24/20 Zehra Azevedo PA-C [address] [place] [address] Physician Activity Therapy Specialist Medical Oncology 03/21/22 08/20/23 Chavo Zimmer MD [address] [place] [address] Nephrology 01/31/23 documented as of this encounter Additional Source Comments The information contained in this document represents components of the legal health record. It is not the complete legal health record.[facility]
--- OUTSIDE RECORDS SUMMARY | 2025-03-17 17:22 | XMS_ITS | Encounter Summary ---
Author Organization [facility] Address [address] [facility] [address] [place] [address] Phone Care Team Providers Care Teacher Theater Arts Name Role Phone Niall Tobar MD Unavailable Vick Gibson MD Unavailable [phone] Chavo Zimmer MD Unavailable Ene Menon NP Primary Care Provider Silvino Souza-C Primary Care Provider [phone] Encounter Details Date Type Department Care Team (Latest Contact Info) Description 11/19/2023 Transcribe Orders Virtual Department 30 [place] [address] Veronique Uriostegui, [facility] [address] [address] [email or web address] Breast screening (Primary Dx) Social History Tobacco Use Types Packs/Day Years [...] Contact Info) Description 11/03/2024 Procedure Pass [address] [address] 03/25/2025 8:40 AM EDT Office Visit [facility] Internal Medicine 40 [place] [address] Silvino Souza PA-C 40 [place] [address] 05/29/2025 3:30 PM EST Appointment [address] [address] Vick Gibson MD [address] [place] [address] 06/04/2025 4:00 PM EST Office Visit [facility] at [address] [address] Vick Gibson MD [address] [place] [address] documented as of this encounter Results * BI MAMMOGRAM SCREENING WITH TOMOSYNTHESIS WITH CAD (LEFT) (01/28/2024 4:17 PM EDT) Anatomical Region Laterality Modality Breast Left, Breast Bilateral Left Ma mmography 01/30/2024 11:0 4 AM EDT Impressions 01/30/2024 11:06 AM EDT No mammographic evidence of malignancy in the left breast. Annual screening mammography is recommended. BI-RADS 2 BENIGN The patient will be notified of the results and recommendations. Narrative 01/30/2024 11:06 AM EDT BI MAMMOGRAM SCREENING WITH TOMOSYNTHESIS WITH CAD (LEFT) Additional patient information: Screening. History of right breast cancer status post mastectomy (2020). COMPARISON: Comparison is made with relevant prior imaging. Breast composition: The breast tissue is heterogeneously dense which may obscure small masses. FINDINGS: Benign scattered vascular and round calcifications are stable. No abnormal masses, suspicious calcifications, or other significant findings are identified mammographically in the left breast. There has been no interval change. Procedure Note Elvira Ward MD - 01/30/2024 BI MAMMOGRAM SCREENING WITH TOMOSYNTHESIS WITH CAD (LEFT) Additional patient information: Screening. History of right breast cancerstatus post mastectomy (2020). COMPARISON: Comparison is made with relevant prior imaging. Breast composition: The breast tissue is heterogeneously dense which mayobscure small masses. FINDINGS: Benign scattered vascular and round calcifications are stable. No abnormal masses, suspicious calcifications, or other significantfindings are identified mammographically in the left breast. There has been no interval change. IMPRESSION: No mammographic evidence of malignancy in the left breast. Annual screening mammography is recommended. BI-RADS 2 BENIGN The patient will be notified of the results and recommendations. us Veronique Ender Uriostegui VETERINARY TOXICOLOGIST IMG MG EXAMS Final Resul t documented in this encounter Visit Diagnoses Diagnosis Breast screening- Primary Breast screening, unspecified Breast screening Breast screening, unspecified documented in this encounter Additional Health Concerns Assessment Noted Time PHQ-9 Depression Total Score: 1 08/01/19 23 11:19 AM EST PHQ-2 Depression Total Score: 0 02/01/20 23 1:19 PM EDT documented as of this encounter Care Teams Teacher Theater Arts Relationship Specialty Start Date End Date Ene Menon NP [address] [place] [address] [address] [place] [address] PCP - General 01/18/24 01/30/24 Silvino Souza PA-C 40 [place] [address] PCP - General Physician Director Selection And Administration 01/31/24 Niall Tobar MD [address] [place] [address] [place] [address] Ophthalmology 10/01/19 Vick Gibson MD 30 [place] [address] Primary Oncologist Medical Oncology 05/24/20 Chavo Zimmer MD 30 [place] [address] Nephrology 01/31/23 documented as of this encounter Additional Source Comments The information contained in this document represents components of the legal health record. It is not the complete legal health record.[facility]
--- OUTSIDE RECORDS SUMMARY | 2025-03-17 17:23 | XMS_ITS | Encounter Summary ---
Author Organization [facility] Address [address] [place] [address] [place] [address] Phone Care Team Providers Care Education Instructor Name Role Phone Chris Stokes MD Unavailable [phone] Ene Menon REFRIGERATION SUPERVISOR Primary Care Provider Niall Tobar MD Unavailable [phone] Chavo Zimmer MD Unavailable Vick Gibson MD Unavailable [phone] Zehra Azevedo PA-C Unavailable dede Chavo Zimmer MD Unavailable Ene Menon REFRIGERATION SUPERVISOR Primary Care Provider Silvino Souza PA-C Primary Care Provider [phone] Encounter Details Date Type Department Care Team (Late st Contact Info) Description 06/23/2020 Ancillary Orders [facility] [address] [facility] 3rd Floor, [address] [place] [address] Ava Gipson PA-C [address] [place], [place] [id number] [email or web address] Social History Tobacco Use Types Packs/Day Years [...] st Contact Info) Description 11/03/2024 Procedure Pass [address] [address] 03/25/2025 8:40 AM EDT Office Visit [facility] Internal Medicine 40 [place] [address] Silvino Souza PA-C 40 [place] [address] 05/29/2025 3:30 PM EST Appointment [address] [address] Vick Gibson MD [address] [place] [address] 06/04/2025 4:00 PM EST Office Visit [facility] at [address] [address] Vick Gibson MD [address] [place] [address] documented as of this encounter Visit Diagnoses Not on filedocumented in this encounter Additional Health Concerns Infection Onset Date Last Indicated Resolved Time CoV-Risk 09/01/2020 09/01/2020 09/11/2020 1:23 AM EST CoV-Exposed Comment:Recent close contact documented in the COVID-19 Amb Triage Form 06/28/2021 06/28/2021 07/23/2021 1:[address] Assessment Noted Time PHQ-2 Depression Total Score: 0 08/06/19 20 12:55 PM EST documented as of this encounter Care Teams Education Instructor Relationship Specialty Start Date End Date Ene Menon, REFRIGERATION SUPERVISOR [address] [place] [address] PCP - General Family Medicine 03/08/18 09/04/23 Ene Menon, REFRIGERATION SUPERVISOR [address] [place] [address] PCP - General 01/18/24 01/30/24 Silvino Souza PA-C 40 [place] [address] PCP - General Physician Machine Welder 01/31/24 Chris Stokes MD 40 [place] [address] [email or web address] Insurance Assigned Provider 09/29/17 12/10/21 Niall Tobar MD [address] [place] [address] Dr [facility] [id number] Ophthalmology 10/01/19 Chavo Zimmer MD [address] [place] [address] Dr [place] [address] Nephrology 10/03/19 01/30/23 Vick Gibson MD [address] [place] [address] [email or web address] Primary Oncologist Medical Oncology 05/24/20 Zehra Azevedo PA-C [address] [place] [address] [email or web address] [email or web address] Machine Welder Medical Oncology 03/21/22 08/20/23 Chavo Zimmer MD [address] [place] [address] Nephrology 01/31/23 documented as of this encounter Additional Source Comments The information contained in this document represents components of the legal health record. It is not the complete legal health record.[facility]
--- OUTSIDE RECORDS SUMMARY | 2025-03-17 17:23 | XMS_ITS | Encounter Summary ---
Author Organization [facility] Address [address] [place] [phone] Phone Care Team Providers Care Salvage Determiner Name Role Phone Unavailable Primary Care Provider Unavailabl e Encounter Details Date Type Department Care Team ([facility] st Contact Info) Description 03/11/2025 Treatment [facility] [address] [address] Michel Harp MD [address] [address] End stage renal disease; Dependence [...] Dialysis Note - Michel Harp MD - 03/11/2025 12:00 AM EDT Patient: Paulette Martínez : 1935 Note Type: Dialysis Rounds-PD Service Date: 03/11/2025 This patient was personally seen [id number] for a complete visit as part of routine monthly dialysis care for end stage renal disease. Attending Shank Archer: MICHEL HARP MD Dialysis Location: [facility] DIALYSIS [facility] OVERVIEW Patient is stable. HOME MEDICATIONS Medications reviewed. [facility] Medications alpha tocopherol (VITAMIN E) capsule [...] EACH DAY WITH BREAKFAST. Start Date: 08/14/2024 calcium acetate (PHOSLO) 667 MG tablet TAKE 1 TABLET BY MOUTH THREE TIMES A DAY WITH MEALS (MORNING, NOON, AND EVENING) Start Date: 11/22/2024 calcium carbonate (OS-EDDIE) tablet 1500 mg Take [...] BP is acceptable ADEQUACY ASSESSMENT Kt/V, Total 2.51 (01/07/25) 1.88 (09/30/24) 2.25 (07/08/24) Kt/V, Residual 1.17 (01/07/25) 0.59 (09/30/24) 1.03 (07/08/24) BUN 41 (03/05/25) 40 (02/02/25) 48 (01/07/25) Creatinine 6.12 (03/05/25) 6.06 (02/02/25) 5.28 (01/07/25) Bicarbonate (CO2) 18 (03/05/25) 20 (02/02/25) 21 (12/31/24) Sodium 142 (03/05/25) 138 (02/02/25) 139 (12/31/24) Urine Volume 800 (01/07/25) 900 (09/30/24) 950 (07/08/24) Target met. Prescription compliance acceptable. ACCESS ASSESSMENT Current Access: PD Catheter Access is good. Exit site looks clean. Tunnel tract without sign of infection. Peritoneal fluid is clear. ANEMIA ASSESSMENT Hgb 10.9 (03/05/25) 10.6 (02/02/25) 9.6 (12/31/24) Iron Saturation (TSat) 20 (03/05/25) 30 (02/02/25) 19 (12/31/24) Ferritin 844 (03/05/25) 718 (02/02/25) 649 (12/31/24) Iron 48 (03/05/25) 84 (02/02/25) 51 (12/31/24) TIBC 235 (03/05/25) 276 (02/02/25) 263 (12/31/24) MCV 105.4 (03/05/25) 104.8 (02/02/25) 104.7 (12/31/24) Platelets 210 (03/05/25) 222 (02/02/25) 221 (12/31/24) Anemia targets met. Continue current TIFFANY dose. Iron adjusted per protocol. BMM ASSESSMENT Calcium, Adjusted Total 8.9 03/05/25 9.0 02/02/25 9.2 12/31/24 Calcium 8.9 03/05/25 9.0 02/02/25 9.2 12/31/24 Phosphorus, Serum 6.6 03/05/25 5.9 02/02/25 5.2 01/07/25 Ca*PO4 58.7 03/05/25 53.1 02/02/25 56.1 12/31/24 PTH, Intact 363 03/05/25 251 02/02/25 234 12/31/24 Magnesium 2.0 03/05/25 2.4 02/02/25 2.3 12/31/24 Alkaline Phosphatase 97 03/05/25 86 02/02/25 103 12/31/24 Aluminum 4 07/08/24 PTH within target. Hyperphosphatemia noted. Counseled regarding dietary compliance. Referred to medical claims analyst for further counseling. Calcium controlled. Bone and mineral metabolism parameters reviewed. COMMENTS: Stop calcitriol NUTRITION ASSESSMENT Albumin 4.2 03/05/25 4.0 02/02/25 4.2 12/31/24 Potassium 4.3 03/05/25 5.0 02/02/25 4.4 12/31/24 Hemoglobin A1C 4.7 12/31/24 5.3 09/30/24 5.6 07/08/24 Albumin at goal. Potassium uncontrolled. PHYSICAL EXAM Exam performed. Vital Signs Reviewed. Lungs - Clear. CV - Blood pressure noted. No edema. EXT - No ulcers. ADDITIONAL LABS White Blood Cells 9.5 (03/05/25) 8.9 (02/02/25) 9.7 (12/31/24) Cholesterol 98 (12/31/24) 120 (09/30/24) 124 (07/08/24) HDL 35 (12/31/24) 28 (09/30/24) 25 (07/08/24) LDL-Calc 28 (12/31/24) 37 (09/30/24) 38 (07/08/24) Triglycerides 173 (12/31/24) 277 (09/30/24) 304 (07/08/24) Hep B Surface Antibody ?4 (07/08/24) Uric Acid 6.6 (07/08/24) COMMENTS: Not a transplat candidate based on age ADDITIONAL COMMENT COMMENTS: Not a transplant candidate Signed by: MICHEL HARP MD on 03/11/2025 at 10:58:10 AM Transcribed by: MICHEL HARP MD on 03/11/2025 at 10:58:10 AM documented in this encounter Plan of Treatment Not on file documented as of this encounter Visit Diagnoses Diagnosis End stage renal disease Dependence on renal dialysis documented in this encounter
--- OUTSIDE RECORDS SUMMARY | 2025-03-17 17:23 | XMS_ITS | Encounter Summary ---
Author Organization [facility] Address [address] [place] [phone] Phone Care Team Providers Care Machine Packer Name Role Phone Chris Stokes MD Unavailable [phone] Ene Menon INTELLIGENCE CLERK Primary Care Provider [phone] Niall Tobar MD Unavailable [phone] Chavo Zimmer MD Unavailable Vick Gibson MD Unavailable [phone] Zehra Azevedo PA-C Unavailable dede Chavo Zimmer MD Unavailable Ene Menon INTELLIGENCE CLERK Primary Care Provider [phone] Silvino Souza PA-C Primary Care Provider [phone] Encounter Details Date Type Department Care Team (Late st Contact Info) Description 08/03/2020 Procedure Pass OR Admitting Dept - Virtual Department [address] [place] [address] Social History Tobacco Use Types Packs/Day Years [...] 08/03/2020 6:03 PM Bria Ceja RN * [place] Suicide Severity Rating Scale (Screener/Recent Self-Report) Question [...] st Contact Info) Description 11/03/2024 Procedure Pass [address] [address] 03/25/2025 8:40 AM EDT Office Visit [facility] Internal Medicine 40 [place] [address] Silvino Souza PA-C 40 [place] [address] [email or web address] 05/29/2025 3:30 PM EST Appointment [address] [address] Vick Gibson MD [address] [place] [address] 06/04/2025 4:00 PM EST Office Visit [facility] at [address] [address] Vick Gibson MD [address] [place] [address] [email or web address] documented as of this encounter Visit Diagnoses Not on filedocumented in this encounter Additional Health Concerns Infection Onset Date Last Indicated Resolved Time CoV-Risk 09/01/2020 09/01/2020 09/11/2020 1:23 AM EST CoV-Exposed Comment:Recent close contact documented in the COVID-19 Amb Triage Form 06/28/2021 06/28/2021 07/23/2021 1:[address] Assessment Noted Time PHQ-2 Depression Total Score: 0 08/06/19 12:55 PM EST documented as of this encounter Care Teams Machine Packer Relationship Specialty Start Date End Date Ene Menon NP [address] [place] [address] [email or web address] PCP - General Family Medicine 03/08/18 09/04/23 Ene Menon NP [address] [place] [address] [email or web address] PCP - General 01/18/24 01/30/24 Silvino Souza PA-C [address] [place] [address] PCP - General Physician Community Nurse 01/31/24 Chris Stokes MD [address] [place] [address] [email or web address] Insurance Assigned Provider 09/29/17 12/10/21 Niall Tobar MD [address] [place] [address] [place] [address] Ophthalmology 10/01/19 GoranChavo chavez MD [address] [place] [address] [place] [address] Nephrology 10/03/19 01/30/23 Vick Gibson MD [address] [place] [address] Primary Oncologist Medical Oncology 05/24/20 Zehra Azevedo PA-C [address] [place] [address] Physician Community Nurse Medical Oncology 03/21/22 08/20/23 Chavo Zimmer MD [address] [place] [address] Nephrology 01/31/23 documented as of this encounter Additional Source Comments The information contained in this document represents components of the legal health record. It is not the complete legal health record.[facility]
--- OUTSIDE RECORDS SUMMARY | 2025-03-17 17:23 | XMS_ITS | Encounter Summary ---
Author Organization [facility] Address [address] [place] [address] Phone Care Team Providers Care Early Childhood Services Coordinator Name Role Phone Crhis Stokes MD Unavailable [phone] Ene Menon WEAPONS SYSTEM INSTRUMENT MECHANIC Primary Care Provider Niall Tobar MD Unavailable Chavo Zimmer MD Unavailable Vick Gibson MD Unavailable [phone] Zehra Azevedo PA-C Unavailable dede Chavo Zimmer MD Unavailable Ene Menon WEAPONS SYSTEM INSTRUMENT MECHANIC Primary Care Provider [phone] Silvino Souza PA-C Primary Care Provider [phone] Encounter Details Date Type Department Care Team (Late st Contact Info) Description 07/09/[address] [facility] [address] [place] [address] Vick Gibson MD 30 [place] [address] [email or web address] 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 breast in female, estrogen receptor positive Social History Tobacco Use Types Packs/Day Years [...] st Contact Info) Description 11/03/2024 Procedure Pass [address] [address] 03/25/2025 8:40 AM EDT Office Visit [facility] Internal Medicine 40 [place] [address] Silvino Souza PA-C 40 [place] [address] 05/29/2025 3:30 PM EST Appointment [address] [address] Vick Gibson MD [address] [place] [address] 06/04/2025 4:00 PM EST Office Visit [facility] at [address] [address] Vick Gibson MD [address] [place] [phone] documented as of this encounter Results * BI MAMMOGRAM DIAGNOSTIC POST PROCEDURE NO TOMOSYNTHESIS NO CAD (RIGHT) (07/09/2020 11:25 AM EST) Anatomical Region Laterality Modality Breast Right, Breast Bilateral Right M ammography 07/09/2020 12:1 4 PM EST Impressions 07/09/2020 12:18 PM EST No evidence of complication following ultrasound-guided biopsy. Marker is above. Narrative 07/09/2020 12:18 PM EST Postprocedure full-field cc and true lateral views of the right breast are obtained with tomosynthesis and 2-D reconstruction. Study is compared to prior of June 11 and demonstrates marker from biopsy today to correlate to an area of what density in the infrarenal medial right breast. No evidence for significant regional hemorrhage. No other significant change. Procedure Note Filiberto Medel MD - 07/09/2020 Postprocedure full-field cc and true lateral views of the right breast areobtained with tomosynthesis and 2-D reconstruction. Study is compared toprior of June 11 and demonstrates marker from biopsy today tocorrelate to an area of what density in the infrarenal medial rightbreast. No evidence for significant regional hemorrhage. No othersignificant change. IMPRESSION: No evidence of complication following ultrasound-guided biopsy. Marker isabove. 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, estrogen receptor positive documented in this encounter Additional Health Concerns Infection Onset Date Last Indicated Resolved Time CoV-Risk 09/01/2020 09/01/2020 09/11/2020 1:23 AM EST CoV-Exposed Comment:Recent close contact documented in the COVID-19 Amb Triage Form 06/28/2021 06/28/2021 07/23/2021 1:[address] Assessment Noted Time PHQ-2 Depression Total Score: 0 08/06/19 12:55 PM EST documented as of this encounter Care Teams Early Childhood Services Coordinator Relationship Specialty Start Date End Date Ene Menon NP [address] [place] [address] [email or web address] PCP - General Family Medicine 03/08/18 09/04/23 Ene Menon NP [address] [place] [address] 6 [place] [address] PCP - General 01/18/24 01/30/24 Silvino Souza PA-C [address] [place] [address] [email or web address] PCP - General Physician Sign Fabricator 01/31/24 Chris Stokes MD [address] [place] [address] [email or web address] Insurance Assigned Provider 09/29/17 12/10/21 Niall Tobar MD [address] [place] [address] Dr HOSKINS [address] [place] [address] Ophthalmology 10/01/19 Chavo Zimmer MD [address] [place] [address] Dr HOSKINS [address] [place] [address] Nephrology 10/03/19 01/30/23 Vick Gibson MD [address] [place] [address] [email or web address] Primary Oncologist Medical Oncology 05/24/20 Zehra Azevedo PA-C [address] [place] [address] [email or web address] Physician Sign Fabricator Medical Oncology 03/21/22 08/20/23 Chavo Zimmer MD [address] [place] [address] Nephrology 01/31/23 documented as of this encounter Additional Source Comments The information contained in this document represents components of the legal health record. It is not the complete legal health record.[facility]
--- OUTSIDE RECORDS SUMMARY | 2025-03-17 17:23 | XMS_ITS | Encounter Summary ---
Author Organization [facility] Address [address] [place] [address] Phone Care Team Providers Care Border Patrol Agent Name Role Phone Chris Stokes MD Unavailable [phone] Ene Menon CLIENT RETENTION SPECIALIST Primary Care Provider [phone] Niall Tobar MD Unavailable [phone] Chavo Zimmer MD Unavailable Vick Gibson MD Unavailable [phone] Zehra Azevedo PA-C Unavailable dede Chavo Zimmer MD Unavailable Ene Menon CLIENT RETENTION SPECIALIST Primary Care Provider [phone] Silvino Souza PA-C Primary Care Provider [phone] Encounter Details Date Type Department Care Team (Late st Contact Info) Description 05/24/2020 Procedure Pass [facility] [address] [place] [address] Social History Tobacco Use Types Packs/Day Years [...] st Contact Info) Description 11/03/2024 Procedure Pass [address] [address] 03/25/2025 8:40 AM EDT Office Visit [facility] Internal Medicine 40 [place] [address] Silvino Souza PA-C 40 [place] [address] 05/29/2025 3:30 PM EST Appointment [address] [address] Vick Gibson MD [address] [place] [address] 06/04/2025 4:00 PM EST Office Visit [facility] at [address] [address] Vick Gibson MD [address] [place] [address] documented as of this encounter Visit Diagnoses [...] documented as of this encounter Care Teams Border Patrol Agent Relationship Specialty Start Date End Date Ene Menon, CLIENT RETENTION SPECIALIST [address] [place] [address] [email or web address] PCP - General Family Medicine 03/08/18 09/04/23 Ene Menon, CLIENT RETENTION SPECIALIST [address] [place] [address] 6 [place] [address] PCP - General 01/18/24 01/30/24 Silvino Suoza PA-C [address] [place] [address] [email or web address] PCP - General Physician Test Lead Application Testing 01/31/24 Chris Stokes MD [address] [place] [address] [email or web address] Insurance Assigned Provider 09/29/17 12/10/21 Niall Tobar MD [address] [place] [address] [place] [address] Ophthalmology 10/01/19 Chavo Zimmer MD [address] [place] [address] [place] [address] Nephrology 10/03/19 01/30/23 Vick Gibson MD [address] [place] [address] [email or web address] Primary Oncologist Medical Oncology 05/24/20 Zehra Azevedo PA-C [address] [place] [address] [email or web address] Physician Test Lead Application Testing Medical Oncology 03/21/22 08/20/23 Chavo Zimmer MD [address] [place] [address] Nephrology 01/31/23 documented as of this encounter Additional Source Comments The information contained in this document represents components of the legal health record. It is not the complete legal health record.[facility]
--- OUTSIDE RECORDS SUMMARY | 2025-03-17 17:23 | XMS_ITS | Encounter Summary ---
Author Organization [facility] Address [address] [place] [address] Phone Care Team Providers Care Instructional Assistant Name Role Phone Chris Stokes MD Primary Care Provider [phone] Chris Stokes MD Unavailable [phone] Timmy Bradford MD Unavailable [phone] Radha Rose FERRYBOAT OPERATOR CABLE Unavailable [phone] Ene Menon FERRYBOAT OPERATOR CABLE Unavailable [phone] Chris Stokes MD Unavailable [phone] Ene Menon FERRYBOAT OPERATOR CABLE Primary Care Provider [phone] Niall Tobar MD Unavailable Chavo Zimmer MD Unavailable Vick Gibson MD Unavailable [phone] Zehra Azevedo PA-C Unavailable dede Chavo Zimmer MD Unavailable Ene Menon FERRYBOAT OPERATOR CABLE Primary Care Provider [phone] Silvino Souza PA-C Primary Care Provider [phone] Reason for Referral * - Closed Specialty Diagnoses / Procedures Referred By Contac t Referred To Contact Procedures NM Other Outside (No Interpretation) System, Provider Not In, PhD [address] [address] Referral ID Status Reason Start Date Expiration Date Visits Re quested Visits Authorized [id number] Closed 05/23/2017 05/23/2018 1 1 Encounter Details Date Type Department Care Team (Late st Contact Info) Description 05/23/2017 Ancillary Orders [facility],Outside Imaging [address] [place] [address] System, Provider Not In, PhD Partners [address] [address] Social History Tobacco Use Types Packs/Day Years Used Date Smoking Tobacco: Never Assessed Comments Unknown Sex and Gender Information Value Date Recorded Sex Assigned at Female 11/10/2021 9:56 PM EDT Legal Sex Female 10:14 PM EDT Gender Identity Female 11/10/2021 9:56 PM EDT Sexual Orientation Straight 11/10/2021 9: 56 PM EDT documented as of this encounter Plan of Treatment Upcoming Encounters Date Type Department Care Team (Late st Contact Info) Description 11/03/2024 Procedure Pass [address] [address] 03/25/2025 8:40 AM EDT Office Visit [facility] Internal Medicine [address] [place] [address] Silvino Souza PA-C [address] [place] [address] 05/29/2025 3:30 PM EST Appointment [address] [address] Vick Gibson MD [address] [place] [address] [id number] 06/04/2025 4:00 PM EST Office Visit [facility] at [address] [address] Vick Gibson MD [address] [place] [address] [email or web address] documented as of this encounter Results * Mammogram Outside (No Interpretation) (04/30/2017 12:15 AM EDT) Narrative SYSTEMGENERATED, DOCUMENTATION - 05/23/2017 11:47 AM EST This study is for PACS storage only and not for interpretation. us Provider Not In System PhD IMG OUTSIDE IMAGING W /OUT INTERPRETATION Final Result * NM Other Outside (No Interpretation) (04/30/2017 12:00 AM EDT) Narrative SYSTEMGENERATED, DOCUMENTATION - 05/23/2017 11:46 AM EST This study is for PACS storage only and not for interpretation. us Provider Not In System PhD IMG OUTSIDE IMAGING W /OUT INTERPRETATION Final Result * Mammogram Outside (No Interpretation) (04/18/2017 12:15 AM EDT) Narrative SYSTEMGENERATED, DOCUMENTATION - 05/23/2017 11:48 AM EST This study is for PACS storage only and not for interpretation. us Provider Not In System PhD IMG OUTSIDE IMAGING W /OUT INTERPRETATION Final Result * US Breast Outside (No Interpretation) (04/18/2017 12:00 AM EDT) Narrative SYSTEMGENERATED, DOCUMENTATION - 05/23/2017 11:47 AM EST This study is for PACS storage only and not for interpretation. us Provider Not In System PhD IMG OUTSIDE IMAGING W /OUT INTERPRETATION Final Result * US Breast Outside (No Interpretation) (04/12/2017 12:00 AM EDT) Narrative SYSTEMGENERATED, DOCUMENTATION - 05/23/2017 11:49 AM EST This study is for PACS storage only and not for interpretation. us Provider Not In System PhD IMG OUTSIDE IMAGING W /OUT INTERPRETATION Final Result * Mammogram Outside (No Interpretation) (04/09/2017 12:00 AM EDT) Narrative SYSTEMGENERATED, DOCUMENTATION - 05/23/2017 11:50 AM EST This study is for PACS storage only and not for interpretation. us Provider Not In System PhD IMG OUTSIDE IMAGING W /OUT INTERPRETATION Final Result * Mammogram Outside (No Interpretation) (03/20/2016 12:00 [...] E ST documented as of this encounter Care Teams Instructional Assistant Relationship Specialty Start Date End Date Chris Stokes MD [address] [place] [address] PCP - General 04/19/17 03/07/18 Ene Menon FERRYBOAT OPERATOR CABLE [address] [place] [address] PCP - General Family Medicine 03/08/18 09/04/23 Ene Menon NP [address] [place] [address] PCP - General 01/18/24 01/30/24 Silvino Souza PA-C [address] [place] [address] [email or web address] PCP - General Physician Blockman 01/31/24 Chris Stokes MD [address] [place] [address] Historical LMR Provider 04/19/17 03/07/18 Timmy Bradford MD [address] [place] [address], [address] [place] [address] Historical LMR Provider 04/19/17 09/30/19 Radha Rose NP [address] [place] [address] Historical LMR Provider 04/19/17 Ene Ryan NP [address] [place] [address] [email or web address] Historical LMR Provider 04/19/17 03/07/18 Chris Stokes MD [address] [place] [address] Insurance Assigned Provider 09/29/17 12/10/21 Niall Tobar MD [address] [place] [address] [place] [address] Ophthalmology 10/01/19 Cahvo Zimmer MD [address] [place] [address] [place] [address] Nephrology 10/03/19 01/30/23 Vick Gibson MD [address] [place] [address] Primary Oncologist Medical Oncology 05/24/20 Zehra Azevedo PA-C [address] [place] [address] Physician Blockman Medical Oncology 03/21/22 08/20/23 Chavo Zimmer MD [address] [place] [address] Nephrology 01/31/23 documented as of this encounter Additional Source Comments The information contained in this document represents components of the legal health record. It is not the complete legal health record.[facility]
--- OUTSIDE RECORDS SUMMARY | 2025-03-17 17:23 | XMS_ITS | Encounter Summary ---
Author Organization [facility] Address [address] [place] [address] Phone Care Team Providers Care Wire Technician Name Role Phone Chris Stokes MD Unavailable [phone] Ene Menon ELECTRONIC COILS SUPERVISOR Primary Care Provider [phone] Niall Tobar MD Unavailable Chavo Zimmer MD Unavailable Vick Gibson MD Unavailable Zehra Azevedo PA-C Unavailable dede Chavo Zimmer MD Unavailable Ene Menon ELECTRONIC COILS SUPERVISOR Primary Care Provider [phone] Silvino Souza PA-C Primary Care Provider [phone] Encounter Details Date Type Department Care Team (Late st Contact Info) Description 05/24/2020 Procedure Pass [address] [address] Social History Tobacco Use Types Packs/Day Years [...] st Contact Info) Description 11/03/2024 Procedure Pass [address] [address] 03/25/2025 8:40 AM EDT Office Visit [facility] Internal Medicine [address] [place] [address] Silvino Souza PA-C [address] [place] [address] [email or web address] 05/29/2025 3:30 PM EST Appointment [address] [address] Vick Gibson MD [address] [place] [address] [email or web address] 06/04/2025 4:00 PM EST Office Visit [facility] at [address] [address] Vick Gibson MD [address] [place] [address] documented as of this encounter Visit Diagnoses [...] documented as of this encounter Care Teams Wire Technician Relationship Specialty Start Date End Date Ene Menon, ELECTRONIC COILS SUPERVISOR [address] [place] [address] [email or web address] PCP - General Family Medicine 03/08/18 09/04/23 Ene Menon, ELECTRONIC COILS SUPERVISOR [address] [place] [address] 6 [place] [address] PCP - General 01/18/24 01/30/24 Silvino Souza PA-C [address] [place] [address] [email or web address] PCP - General Physician Wheat Cleaner 01/31/24 Chris Stokes MD [address] [place] [address] [email or web address] Insurance Assigned Provider 09/29/17 12/10/21 Niall Tobar MD [address] [place] [address] [place] [address] Ophthalmology 10/01/19 Chavo Zimmer MD [address] [place] [address] [place] [address] Nephrology 10/03/19 01/30/23 Vick Gibson MD [address] [place] [address] [email or web address] Primary Oncologist Medical Oncology 05/24/20 Zehra Azevedo PA-C [address] [place] [address] [email or web address] Physician Wheat Cleaner Medical Oncology 03/21/22 08/20/23 Chavo Zimmer MD [address] [place] [address] Nephrology 01/31/23 documented as of this encounter Additional Source Comments The information contained in this document represents components of the legal health record. It is not the complete legal health record.[facility]
--- OUTSIDE RECORDS SUMMARY | 2025-03-17 17:23 | XMS_ITS | Encounter Summary ---
Author Organization [facility] Address [address] [place] [address] Phone Care Team Providers Care Web Application Developer Name Role Phone Chris Stokes MD Unavailable [phone] Ene Menon TUYERE FITTER Primary Care Provider [phone] Niall Tobar MD Unavailable Chavo Zimmer MD Unavailable Vick Gibson MD Unavailable [phone] Zehra Azevedo PA-C Unavailable dede Chavo Zimmer MD Unavailable Ene Menon TUYERE FITTER Primary Care Provider [phone] Silvino Souza PA-C Primary Care Provider [phone] Encounter Details Date Type Department Care Team (Late st Contact Info) Description 11/14/2019 Procedure Pass [facility], [address] [address] Social History Tobacco Use Types Packs/Day Years [...] st Contact Info) Description 11/03/2024 Procedure Pass [address] [address] 03/25/2025 8:40 AM EDT Office Visit [facility] Internal Medicine [address] [place] [address] Silvino Souza PA-C [address] [place] [address] [email or web address] 05/29/2025 3:30 PM EST Appointment [address] [address] Vick Gibson MD [address] [place] [address] 06/04/2025 4:00 PM EST Office Visit [facility] at [address] [address] Vick Gibson MD [address] [place] [address] documented as of this encounter Visit Diagnoses [...] as of this encounter Care Teams Web Application Developer Relationship Specialty Start Date End Date Ene Menon, TUYERE FITTER [address] [place] [address] [email or web address] PCP - General Family Medicine 03/08/18 09/04/23 Ene Menon, TUYERE FITTER [address] [place] [address] 6 [place] [address] PCP - General 01/18/24 01/30/24 Silvino Souza PA-C [address] [place] [address] [email or web address] PCP - General Physician Oyster Shucker 01/31/24 Chris Stokes MD [address] [place] [address] [email or web address] Insurance Assigned Provider 09/29/17 12/10/21 Niall Tobar MD [address] [place] [address] [place] [address] Ophthalmology 10/01/19 Chavo Zimmer MD [address] [place] [address] [place] [address] Nephrology 10/03/19 01/30/23 Vick Gibson MD [address] [place] [address] [email or web address] Primary Oncologist Medical Oncology 05/24/20 Zehra Azevedo PA-C [address] [place] [address] [email or web address] Physician Oyster Shucker Medical Oncology 03/21/22 08/20/23 Chavo Zimmer MD [address] [place] [address] Nephrology 01/31/23 documented as of this encounter Additional Source Comments The information contained in this document represents components of the legal health record. It is not the complete legal health record.[facility]
--- OUTSIDE RECORDS SUMMARY | 2025-03-17 17:23 | XMS_ITS | Clinical Summary ---
Author Organization [facility] Address [address] [place] [address] Phone Care Team Providers Care Sociology Faculty Member Name Role Phone Unavailable Primary Care Provider [...] by mouth 1 (one) time each day 11/01/2021 Active amLODIPine (NORVASC) 10 MG tablet Take 10 mg by mouth 1 (one) time each day 11/06/2021 Active Januvia 25 MG tablet Take 1 tablet by mouth 1 (one) time each day 12/19/2021 Active furosemide (LASIX) 80 MG tablet Take 80 mg by mouth 1 (one) time each day 01/10/2023 Active metoprolol succinate XL (TOPROL XL) 50 MG 24 hr tablet Take 50 mg by mouth 1 (one) time each day 11/21/2022 Active B complex-vitamin C-folic acid (NEPHRO-CARLOS) 0.8 MG tablet TAKE 1 TABLET BY MOUTH 1 TIME EACH DAY WITH BREAKFAST. 30 tablet 11 08/14/2024 Active calcium acetate (PHOSLO) 667 MG tablet TAKE 1 TABLET BY MOUTH THREE TIMES A DAY WITH MEALS (MORNING, NOON, AND EVENING) 270 tablet 3 11/22/2024 Active Active Problems Problem Noted Date Diagnosed Date Stage 5 chronic kidney disease 02/21/2023 Anemia of chronic disease 02/01/20232022 Atherosclerosis of [place] ar taj of upper extremity with intermittent [...] the left renal artery on 04/22/2020 at [facility]. We recommend aspirin long-term and continuing [...] Encounters Date Type Department Care Team Description 03/11/2025 Treatment [facility] [address] [phone] Michel Harp MD End stage renal disease; Dependence on renal dialysis 03/05/2025 Orders Only [facility] [address] [phone] Michel Harp MD 01/07/2025 Treatment [facility] [address] [phone] Michel Harp MD End stage renal disease; Dependence on renal dialysis from Last 3 Months Immunizations Immunization Administration [...] Exam 07/30/2020 Diabetes: Visual Foot Exam 07/30/2020 Influenza Vaccine (#1) 2025 4, 03/02/2024, 04/02/2023, Additional history exists Diabetes: Hemoglobin A1C 04/02/2025 025, 09/30/2024, 07/08/2024, Additional history exists Pneumococcal Vaccine: 50+ Years Completed 09/25/2018, 08/30/2015, 05/18/2015, Additional history exists Pneumococcal Vaccine: Peds ( 0 to 5 Years) and At-Risk Patients (6 to 49 Years) Discontinued 09/25/2018, 08/30/2015, 05/18/2015, Additional history exists Procedures Procedure Name Priority Date/Time Associated Diagnosis Comments TRANSFERRIN SATURATION Routine 3:00 AM EDT ELECTROLYTE PANEL Routine 03/05/2025 3:0 0 AM EDT PROTEIN, TOTAL, SERUM Routine 03/05/2025 3:00 AM EDT MAGNESIUM Routine 03/05/2025 3:00 AM EDT LIH (HC) Routine 03/05/2025 3:00 AM EDT LACTATE DEHYDROGENASE Routine 03/05/2025 3:00 AM EDT CREATININE, SERUM Routine 03/05/2025 3:0 0 AM EDT BUN/CREATININE RATIO Routine 03/05/2025 3:00 AM EDT GLUCOSE, RANDOM Routine 03/05/2025 3:00 AM EDT BILIRUBIN, TOTAL Routine 03/05/2025 3:00 AM EDT BUN Routine 03/05/2025 3:00 AM EDT AST Routine 03/05/2025 3:00 AM EDT ALKALINE PHOSPHATASE Routine 03/05/2025 3:00 AM EDT CALCIUM PHOSPHORUS PRODUCT, ADJUSTED (HC) Routine 03/05/2025 3:00 AM EDT ALT Routine 03/05/2025 3:00 AM EDT HEPATITIS B SURFACE ANTIGEN W/REFL CONFIRM Routine 03/05/2025 3:00 AM EDT FERRITIN Routine 03/05/2025 3:00 AM EDT PTH, INTACT Routine 03/05/2025 3:00 AM EDT CBC AND DIFFERENTIAL Routine 03/05/2025 3:00 AM EDT TRANSFERRIN SATURATION Routine 3:00 AM EDT MAGNESIUM Routine 02/02/2025 3:00 AM EDT PROTEIN, TOTAL, SERUM Routine 02/02/2025 3:00 AM EDT ELECTROLYTE PANEL Routine 02/02/2025 3:0 0 AM EDT LIH (HC) Routine 02/02/2025 3:00 AM EDT LACTATE DEHYDROGENASE Routine 02/02/2025 3:00 AM EDT GLUCOSE, RANDOM Routine 02/02/2025 3:00 AM EDT CREATININE, SERUM Routine 02/02/2025 3:0 0 AM EDT BUN Routine 02/02/2025 3:00 AM EDT AST Routine 02/02/2025 3:00 AM EDT BUN/CREATININE RATIO Routine 02/02/2025 3:00 AM EDT BILIRUBIN, TOTAL Routine 02/02/2025 3:00 AM EDT ALT Routine 02/02/2025 3:00 AM EDT ALKALINE PHOSPHATASE Routine 02/02/2025 3:00 AM EDT CALCIUM PHOSPHORUS PRODUCT, ADJUSTED (HC) Routine 02/02/2025 3:00 AM EDT HEPATITIS B SURFACE ANTIGEN W/REFL CONFIRM Routine 02/02/2025 3:00 AM EDT FERRITIN Routine 02/02/2025 3:00 AM EDT PTH, INTACT Routine 02/02/2025 3:00 AM EDT CBC AND DIFFERENTIAL Routine 02/02/2025 3:00 AM EDT GLUCOSE, URINE, 24 HOUR Routine 01/07/2025 3:00 AM EDT PHOSPHATE ( PHOSPHORUS) Routine 01/07/2025 3:00 AM EDT LIH (HC) Routine 01/07/2025 3:00 AM EDT BUN/CREATININE RATIO Routine 01/07/2025 3:00 AM EDT PD ADEQUECY BUNDLED Routine 01/07/2025 3 :00 AM EDT HEPATITIS B SURFACE ANTIGEN W/REFL CONFIRM Routine 12/31/2024 3:00 AM EDT PTH, INTACT Routine 12/31/2024 3:00 AM EDT FERRITIN Routine 12/31/2024 3:00 AM EDT TRANSFERRIN SATURATION Routine 3:00 AM EDT PROTEIN, TOTAL, SERUM Routine 12/31/2024 3:00 AM EDT LIPID PANEL Routine 12/31/2024 3:00 AM EDT ELECTROLYTE PANEL Routine 12/31/2024 3:0 0 AM EDT MAGNESIUM Routine 12/31/2024 3:00 AM EDT GLUCOSE, RANDOM Routine 12/31/2024 3:00 AM EDT LIH (HC) Routine 12/31/2024 3:00 AM EDT LACTATE DEHYDROGENASE Routine 12/31/2024 3:00 AM EDT CREATININE, SERUM Routine 12/31/2024 3:0 0 AM EDT BUN/CREATININE RATIO Routine 12/31/2024 3:00 AM EDT BUN Routine 12/31/2024 3:00 AM EDT AST Routine 12/31/2024 3:00 AM EDT BILIRUBIN, TOTAL Routine 12/31/2024 3:00 AM EDT CALCIUM PHOSPHORUS PRODUCT, ADJUSTED (HC) Routine 12/31/2024 3:00 AM EDT ALKALINE PHOSPHATASE Routine 12/31/2024 3:00 AM EDT ALT Routine 12/31/2024 3:00 AM EDT HEMOGLOBIN A1C Routine 12/31/2024 3:00 AM EDT CBC AND DIFFERENTIAL Routine 12/31/2024 3:00 AM EDT from Last 3 Months Results * [facility] (03/05/2025 3:00 AM EDT) Only the most recent of4 resultswithin the time period is included. Lipemia Normal Normal [facility] Icterus Normal Normal [facility] Hemolysis Normal Normal [facility] 03/05/2025 3:00 AM EDT 03/06/2025 2:26 PM EDT us Michel Harp MD LAB [id number] LICITED RESULTS Final Result [facility] [address] [place] [address] * (ABNORMAL) Calcium Phosphorus Product, Adjusted (03/05/2025 3:00 AM EDT) Only the most recent of3 resultswithin the time period is included. Albumin 4.2 3.6 - 5.4 g/dL [facility] Calcium 8.9 8.6 - 10.3 mg/dL [facility] Phosphorus, Serum 6.6(H) 2.5 - 5.0 mg/dL [facility] Ca*PO4 58.7(A) <55.0 mg2/dL2 [facility] Calcium, Adjusted Total 8.9 8.6 - 10.3 mg/dL [facility] CA*PO4 CORRCTD 58.7(A) <55.0 mg2/dL2 [facility] 03/05/2025 3:00 AM EDT 03/06/2025 2:26 PM EDT us Michel Harp MD LAB [id number] LICITED RESULTS Final Result Performing Organization Address City/[facility]/ZIP Co de Phone Number [facility] [address] [place] [address] * Hepatitis B Surface Ag w/Reflex Confirmation (03/05/2025 3:00 AM EDT) Only the most recent of3 resultswithin the time period is included. Pathologist [facility] Hep B Surface Antigen Negative Negative [facility] 03/05/2025 3:00 AM EDT 03/06/2025 2:26 PM EDT us Michel Harp MD LAB BLOOD ORDERABLES Final Resu lt Performing Organization Address City/[facility]/ZIP Co de Phone Number [facility] [address] [place] [address] * BUN/CREATININE RATIO (03/05/2025 3:00 AM EDT) Only the most recent of4 resultswithin the time period is included. BUN/Creatinine Ratio 6.7 <=23.0 [facility] 03/05/2025 3:00 AM EDT 03/06/2025 2:26 PM EDT us Michel Harp MD LAB [id number] LICITED RESULTS Final Result Performing Organization Address [facility] de Phone Number [facility] [address] [place] [address] * (ABNORMAL) TSAT (03/05/2025 3:00 AM EDT) Only the most recent of3 resultswithin the time period is included. [facility] Iron 48(L) 50 - 170 ug/dL [facility] Transferrin 168(L) 250 - 380 mg/dL [facility] TIBC 235 211 - 406 ug/dL [facility] Iron Saturation (TSat) 20(L) 22 - 52 % [facility] 03/05/2025 3:00 AM EDT 03/06/2025 2:26 PM EDT us Michel Hapr MD LAB BLOOD ORDERABLES Final Resu lt Performing Organization Address [facility] de Phone Number [facility] [address] [place] [address] * (ABNORMAL) CBC and Differential (03/05/2025 3:00 AM EDT) Only the most recent of3 resultswithin the time period is included. [facility] DIFFERENTIAL MANUAL, 2 Not Indicated [facility] White Blood Cells 9.5 4.0 - 10.0 K/uL [facility] RBC 3.36(L) 3.93 - 5.22 M/uL [facility] Hgb 10.9(L) 11.2 - 15.7 g/dL [facility] Hemoglobin x 3 32.7(L) 33.6 - 47.1 g/dL [facility] Hematocrit 35.4 34.1 - 44.9 % [facility] MCV 105.4(H) 79.4 - 94.8 fL [facility] MCH 32.4(H) 25.6 - 32.2 pg [facility] MCHC 30.8(L) 32.2 - 35.5 g/dL [facility] RDW 14.1 11.7 - 14.4 % [facility] Platelets 210 182 - 369 K/uL [facility] MPV 10.8 9.2 - 12.8 fL [facility] Neutrophils Relative 77.6(H) 34.0 - 71.1 % [facility] Lymphocytes Relative 9.3(L) 19.3 - 51.7 % [facility] Monocytes 10.4 4.7 - 12.5 % [facility] Eosinophils Relative 1.6 0.7 - 5.8 % [facility] Basophils Relative 0.5 0.1 - 1.2 % [facility] Immature Granulocytes 0.6 0.0 - 1.0 % [facility] 03/05/2025 3:00 AM EDT 03/06/2025 2:24 PM EDT us Michel Harp MD LAB BLOOD ORDERABLES Final Resu lt Performing Organization Address [facility] Co de Phone Number [facility] [address] [place] [address] * (ABNORMAL) BUN (03/05/2025 3:00 AM EDT) Only the most recent of3 resultswithin the time period is included. BUN 41(H) 7 - 25 mg/dL [facility] 03/05/2025 3:00 AM EDT 03/06/2025 2:26 PM EDT us Michel Harp MD LAB BLOOD ORDERABLES Final Resu lt Performing Organization Address [facility] de Phone Number [facility] [address] [place] [address] * ALT (03/05/2025 3:00 AM EDT) Only the most recent of3 resultswithin the time period is included. ALT (SGPT) 13 10 - 49 U/L [facility] 03/05/2025 3:00 AM EDT 03/06/2025 2:26 PM EDT us Michel Harp MD LAB BLOOD ORDERABLES Final Resu lt Performing Organization Address [facility] Co de Phone Number [facility] [address] [place] [address] * AST (03/05/2025 3:00 AM EDT) Only the most recent of3 resultswithin the time period is included. AST (SGOT) 19 <34 U/L [facility] 03/05/2025 3:00 AM EDT 03/06/2025 2:26 PM EDT us Michel Harp MD LAB BLOOD ORDERABLES Final Resu lt Performing Organization Address [facility] Co de Phone Number [facility] [address] [place] [address] * Protein, total (03/05/2025 3:00 AM EDT) Only the most recent of3 resultswithin the time period is included. Total Protein 6.8 6.4 - 8.9 g/dL [facility] 03/05/2025 3:00 AM EDT 03/06/2025 2:26 PM EDT us Michel Harp MD LAB BLOOD ORDERABLES Final Resu lt Performing Organization Address [facility] de Phone Number [facility] [address] [place] [address] * Alkaline phosphatase (03/05/2025 3:00 AM EDT) Only the most recent of3 resultswithin the time period is included. Alkaline Phosphatase 97 46 - 116 U/L [facility] 03/05/2025 3:00 AM EDT 03/06/2025 2:26 PM EDT us Michel Harp MD LAB BLOOD ORDERABLES Final Resu lt Performing Organization Address [facility] de Phone Number [facility] [address] [place] [address] * PTH, Intact (03/05/2025 3:00 AM EDT) Only the most recent of3 resultswithin the time period is included. PTH, Intact 363 160 - 721 pg/mL [facility] Comment: Suggested (KDIGO) ESRD maintenance range is two to nine times the upper normal limit (80.1 pg/mL) for the laboratory. 03/05/2025 3:00 AM EDT 03/06/2025 2:26 PM EDT us Michel Harp MD LAB BLOOD ORDERABLES Final Resu lt Performing Organization Address [facility] Co de Phone Number [facility] [address] [place] [address] * Magnesium (03/05/2025 3:00 AM EDT) Only the most recent of3 resultswithin the time period is included. Magnesium 2.0 1.9 - 2.7 mg/dL [facility] 03/05/2025 3:00 AM EDT 03/06/2025 2:26 PM EDT us Michel Harp MD LAB BLOOD ORDERABLES Final Resu lt Performing Organization Address [facility] de Phone Number [facility] [address] [place] [address] * (ABNORMAL) Lactate dehydrogenase (03/05/2025 3:00 AM EDT) Only the most recent of3 resultswithin the time period is included. LDH 267(H) 120 - 246 U/L [facility] 03/05/2025 3:00 AM EDT 03/06/2025 2:26 PM EDT us Michel Harp MD LAB BLOOD ORDERABLES Final Resu lt Performing Organization Address [facility] de Phone Number [facility] [address] [place] [address] * Glucose, random (03/05/2025 3:00 AM EDT) Only the most recent of3 resultswithin the time period is included. Glucose 99 70 - 99 mg/dL [facility] Comment: ADA guidelines outline the following fasting glucose ranges: Normal: <100 Prediabetes: 100-125 Diabetes: >125 03/05/2025 3:00 AM EDT 03/06/2025 2:26 PM EDT us Michel Harp MD LAB BLOOD ORDERABLES Final Resu lt Performing Organization Address [facility] Co de Phone Number [facility] [address] [place] [address] * (ABNORMAL) Ferritin (03/05/2025 3:00 AM EDT) Only the most recent of3 resultswithin the time period is included. Ferritin 844(H) 10 - 291 ng/mL [facility] 03/05/2025 3:00 AM EDT 03/06/2025 2:26 PM EDT us Michel Harp MD LAB BLOOD ORDERABLES Final Resu lt Performing Organization Address [facility] de Phone Number [facility] [address] [place] [address] * (ABNORMAL) Creatinine, serum (03/05/2025 3:00 AM EDT) Only the most recent of3 resultswithin the time period is included. Creatinine 6.12(H) 0.55 - 1.02 mg/dL [facility] 03/05/2025 3:00 AM EDT 03/06/2025 2:26 PM EDT us Michel Harp MD LAB BLOOD ORDERABLES Final Resu lt Performing Organization Address [facility] de Phone Number [facility] [address] [place] [address] * (ABNORMAL) Bilirubin, total (03/05/2025 3:00 AM EDT) Only the most recent of3 resultswithin the time period is included. Total Bilirubin 0.2(L) 0.3 - 1.2 mg/dL [facility] 03/05/2025 3:00 AM EDT 03/06/2025 2:26 PM EDT Michel Harp MD LAB BLOOD ORDERABLES Final Resu Performing Organization Address [facility] Co de Phone Number [facility] [address] [place] [address] * (ABNORMAL) Electrolyte panel (03/05/2025 3:00 AM EDT) Only the most recent of3 resultswithin the time period is included. Sodium 142 136 - 145 mEq/L [facility] Potassium 4.3 3.4 - 5.0 mEq/L [facility] Chloride 108(H) 98 - 107 mEq/L [facility] Bicarbonate (CO2) 18(L) 21 - 31 mEq/L [facility] Anion Gap 16(H) 3 - 14 mEq/L [facility] 03/05/2025 3:00 AM EDT 03/06/2025 2:26 PM EDT Michel Harp MD LAB BLOOD ORDERABLES Final [facility] Performing Organization Address [facility] de Phone Number [facility] [address] [place] [address] * (ABNORMAL) PD Adequecy Bundled (01/07/2025 3:00 AM EDT) Patient Height (FT) 168.9 cm [facility] Dry Weight 70.0 kg [facility] Urine Volume 800 mL [facility] Collection Interval, Ur 1,440 min [facility] Total Drain Volume 24 Hr 9,162 mL [facility] Creatinine 5.28(H) 0.55 - 1.02 mg/dL [facility] BUN 48(H) 7 - 25 mg/dL [facility] Creatinine, Urine 55 mg/dL [facility] Comment:See 24 Hour Urine Cr eatinine for Reference Range in mg/24hr Urea Nitrogen, Ur 360.2 mg/dL [facility] Comment:See 24 Hour Urine Ur ea Nitrogen for Reference Range in g/24hr Creat, 24 HR Dial 2.13 mg/dL [facility] Onelia Creat, 24 Hr Dial 2.00 mg/dL [facility] Urea Nitrogen, 24HR Dial 36 mg/dL [facility] Body Surface Area 1.80 m2 [facility] Comment:Body surface area es timated from [employer] Yessy formula Total Body Water 35.8 L [facility] Comment:Volume of distributi on estimated from [employer] formula Creatinine renal clearance 5.6(L) 75.0 - 115.0 mL/min/1. 73m2 [facility] Kt/V, Residual 1.17 [facility] Dial KT/V 1.34 [facility] Kt/V, Total 2.51 [facility] Comment: The K/DOQI 2006 recommendations for [...] or equal to 1.7. Weekly Residual CrCl 56.1 L/wk/1.73 m2 [facility] Weekly Dialysate CrCl 23.3 L/wk/1.73 m2 [facility] Weekly Residual GFR 48.2 L/wk/1.73 m2 [facility] Comment: Calculated by the arithmetic mean of urea and creatinine clearance(Guideline 6 of KDOQI Adequacy 2000) Weekly Total CRCL 71.5 L/wk/1.73 m2 [facility] Comment:Calculated by adding the GFR and Weekly Dialysate CrCl PNA 61.6 g/day [facility] NPNA (PD) 1.0 g/kg/day [facility] Comment: Providers should strive to achieve an nPNA of greater than or equal to 0.9 g/kg/day. nPNA valid only if protein loss <15 g/day. 01/07/2025 3:00 AM EDT 01/08/2025 1:29 PM EDT us Michel Harp MD LAB BLOOD ORDERABLES Edited Res ult - Final [facility] [address] [place] [address] * Glucose, urine, 24 hour (01/07/2025 3:00 AM EDT) Glucose 24 HR Dial 1,262 mg/dL [facility] 01/07/2025 3:00 AM EDT 01/08/2025 1:53 PM EDT us Michel Harp MD LAB URINE ORDERABLES Final Resu lt Performing Organization Address [facility] Co de Phone Number [facility] [address] [place] [address] * (ABNORMAL) Phosphorus (01/07/2025 3:00 AM EDT) Phosphorus, Serum 5.2(H) 2.5 - 5.0 mg/dL [facility] 01/07/2025 3:00 AM EDT 01/08/2025 1:29 PM EDT us Michel Harp MD LAB BLOOD ORDERABLES Final Resu lt Performing Organization Address [facility] de Phone Number [facility] [address] [place] [address] * Hemoglobin A1c (12/31/2024 3:00 AM EDT) Hemoglobin A1C 4.7 <5.7 % [facility] Comment: Methodology: Enzymatic Normal: <5.7% Prediabetes: 5.7-6.4% Diabetes: >6.4% Diabetic Glucose Control Evaluation: Therapeutic action suggested at >8.0% ADA recommends a glycemic goal of <7.0% 12/31/2024 3:00 AM EDT 01/01/2025 12:34 PM EDT us Michel Harp MD LAB BLOOD ORDERABLES Final Resu lt Performing Organization Address [facility] Co de Phone Number [facility] [address] [place] [address] * (ABNORMAL) Lipid panel (12/31/2024 3:00 AM EDT) Cholesterol 98 mg/dL [facility] Comment: Optimal: <200 Borderline: 200-239 High Risk: >239 Triglycerides 173(H) mg/dL [facility] Comment: Optimal: <150 Borderline: 150-200 High Risk: >200 HDL 35(L) mg/dL [facility] Comment: Optimal: >59 Borderline: 40-59 High Risk: <40 LDL-Calc 28 mg/dL [facility] Comment: Optimal: <100 Borderline: 100-159 High Risk: >159 VLDL Cholesterol Eddie 35(H) mg/dL [facility] Comment: Optimal: <30 Borderline: 30-40 High Risk: >40 Chol/HDL Ratio 2.8 [facility] Comment: Optimal: <3.3 High Risk: >6.2 12/31/2024 3:00 AM EDT 01/01/2025 1:38 PM EDT us Michel Harp MD LAB BLOOD ORDERABLES Final Resu lt Performing Organization Address City/State/[facility] Co de Phone Number [facility] [address] [place] [address] from Last 3 Months Insurance Medicare [facility] Medicare
[2025-03-17] MEDS: 0.9 % Sodium Chloride Flush 3 ML SYRINGE IVFLUSH (23:03)
[2025-03-18] VITALS (8 sets, daily range): BP systolic 108–148; BP diastolic 45–64; PULSE 61–74; RESP 15–20; TEMP 36.4–36.8; O2SAT 85–97
[2025-03-18 05:36] LABS: Hematocrit 32.3 % (37.0-47.0); Hemoglobin 10.5 g/dl (12.0-16.0); Imm Gran Abs Auto 0.06 X10*3/uL (0.00-0.03); Imm Gran Pct Auto 0.8 % (0.0-0.4); Lymphocytes Absolute Auto 0.4 X10*3/uL (1.2-4.9); MANUAL DIFF FLAG SCAN; Mean Corpuscular HGB Conc 32.5 g/dl (31.0-35.0); Mean Corpuscular Hemoglobin 31.5 pg (27.0-33.0); Mean Corpuscular Volume 97.0 fL (80.0-98.0); NRBC Abs Auto 0.000 X10*3/uL (0.0-0.012); NRBC Pct Auto 0.0 /100WBC (0.0-0.2); Platelet Count 220 X10*3/uL (160-400); Red Blood Count 3.33 X10*6/uL (4.20-5.50); SCAN SMEAR FLAG 1; White Blood Count 7.7 X10*3/uL (4.8-10.8)
[2025-03-18 06:00] LABS: Alanine Aminotransferase 9 U/L (0-31); Albumin Level 3.3 g/dL (3.5-5.0); Alkaline Phosphatase 74 U/L (39-117); Anion Gap 18 (12-20); Aspartate Amino Transferase 18 U/L (5-31); Blood Urea Nitrogen 55 mg/dL (9-16); Calcium 8.7 mg/dL (8.4-10.2); Carbon Dioxide 16 mmol/L (22-29); Chloride 109 mmol/L (96-108); Creatinine Clr Calc Pharmacy 5.8; Estimated Glomerular Filt Rate 6; Potassium 4.9 mmol/L (3.3-5.1); Sodium 138 mmol/L (135-145); Total Protein 6.1 g/dL (6.5-8.0)
--- NOTE | 2025-03-18 07:00 | CA_ITS ---
Transthoracic Echocardiogram Patient (Last, First, Middle): Paulette Martínez L Gender: F Date of : 1935 Age: 89 Procedure Date: 03/18/2025 Procedure Type: Transthoracic Echocardiogram Location: [facility] [place] Height: 167.64 cm Weight: 72.58 kg BSA: 1.82 m2 Heart Rate: bpm BP: 148 / 62 mmHg Packer: SB Referring MD: Niall Owusu DO Symptoms: TIA, Acute vision loss Study Quality: AdequateW Contrast ECG Rhythm: Sinus Conclusions: - The left ventricular systolic function is hyperdynamic. The visually estimated ejection fraction is >70%. - There is severe calcification of the aortic valve. There is mild aortic valve stenosis. - There is severe mitral annular calcification. - There is mild tricuspid valve regurgitation. - Moderate pulmonary hypertension is present. Findings Left Ventricle Normal left ventricular cavity size. There is moderately increased left ventricular wall thickness. The left ventricular systolic function is hyperdynamic. The visually estimated ejection fraction is >70%. Diastolic function is indeterminate on the basis of available data. There is severe septal asymmetric hypertrophy. Right Ventricle Normal right ventricular cavity size. There is mildly decreased right ventricular systolic function. Atria The left atrium is moderately dilated. The right atrium is normal in size. Aortic Valve There is severe calcification of the aortic valve. There is mild aortic valve stenosis. There is no aortic valve regurgitation. Mitral Valve There is severe mitral annular calcification. There is mild mitral valve regurgitation. Possible calcific mitral stenosis. Pulmonic Valve The pulmonic valve is likely normal. Tricuspid Valve There is mild tricuspid valve regurgitation. Moderate pulmonary hypertension is present. Great Vessels The asc aorta is normal in size. Venous The inferior vena cava was not well visualized. Pericardium/Pleural There is no evidence of pericardial effusion. Prior Study Comparison No significant change compared to prior study dated: 11/26/2024. Measurements 2D Linear Measurements IVSd: 1.80 0.6-0.9/0.6-1.0 cm LVIDd: 3.93 3.9-5.3/4.2-5.9 cm LVIDd Index: 2.16 2.4-3.2/2.2-3.1 cm/m2 LVIDs: 2.41 2.0-3.6 cm LVPWd: 1.30 0.7-1.1 cm Ao Root: 3.10 2.1-3.5 cm LA Diam: 4.00 2.7-3.8/3.0-4.0 cm LAIDs Index: 2.20 1.5-2.3 cm/m2 LV Mass: 298.20 67-162/88-224 g LV Mass Index: 163.85 43-95/49-115 g/m2 LVOT Diam: 2.10 3.0+(-)1.3 cm 2D Systolic Function EF 4C: 70.80 >55% EF 2C: 77.80 >55% EF BiP: 74.10 >55% Mitral Valve MV VTI: 0.55 MV Pk Ozzie: 2.03 MV Mn Ozzie: 1.21 MV Pk Grad: 16.00 MV Mn Grad: 7.00 MV Pk E: 1.89 MV PK A: 1.62 MV Decel Time: 238.00 E/A: 1.20 E'Lateral: 4.24 E'Medial: 4.03 E/E' Med: 46.90 E/E' Lat: 44.60 PHT: 70.00 MVA PHT: 3.14 MVA Continuity: 1.35 Decel [place]: 7.94 Aortic Valve AoV Pk Ozzie: 2.04 AoV Mn Ozzie: 1.47 AoV VTI: 0.50 AoV Pk Grad: 17.00 Aov Mn Grad: 10.00 BRAULIO Cont.VTI: 1.50 LVOT LVOT Pk Ozzie: 0.87 LVOT Mn Ozzie: 0.58 LVOT VTI: 0.22 LVOT Pk Grad: 3.00 LVOT Mn Grad: 2.00 LVOT Diam: 2.10 LVOT Area: 3.46 Diastolic Function MV Pk E: 1.89 MV Pk A: 1.62 E/A: 1.20 E'Medial: 4.03 E/E' Med: 46.90 E' Laterial: 4.24 E/E' Lat: 44.60 Right Ventricle TAPSE (mm): 18.00 TVS' Ozzie: 9.00 Tricuspid Valve TR Pk Ozzie: 3.74 TR Pk Grad: 56.00 RA Press: 3.00 RVSP: 59.00 Great Vessels Aorta Ao Root-2D: 3.10 2.0-3.7 cm Ao Asc: 3.70 2.1-3.4 cm Pulmonary Valve PV Pk Ozzie: 0.91 Peak PV Grad: 3.00 Updated in Other Vendor System with Status of Final Puneet Flanagan MD electronically signed on 03/18/2025 11:36:53 AM with status of Final
[2025-03-18 07:08] LABS: Glucose, Whole Blood 162 mg/dL (60-115)
--- NOTE | 2025-03-18 07:13 | PC.NURSE ---
This RN was approached as charge lpn to discuss that pt is admitted to [facility] but is a peritoneal dialysis patient, this RN reached out to provider and [employer], per Dr. Owusu pt is to not receive dialysis while here, and has been discussed with family who is also in agreement with plan. Primary nurse aware of plan.
[2025-03-18] MEDS: Metoprolol Succinate ER 50 MG TAB.ER.24H PO (08:09)
--- NOTE | 2025-03-18 09:34 | PC.NURSE ---
Pt alert and oriented. She requested to take half of medications later, not all at once, r/t GERD. Waiting until she is backfrom MRI. COmpleted MRI form.
--- NOTE | 2025-03-18 09:45 | HO.NURTONUR ---
Pt alert and oriented x4. Came to ER from Eye doctor for sudden onset blindness on left. Denies pain at this time. Other neuros appear to be intact. She is currently on 2L O2 NC because she desats to 88-89% on room air. She is room air at baseline. Has history of retinal repair, DM, ESRD, on home peritoneal dialysis. She reports some chronic trouble swallowing pills or eating too much food at once, which may cause reflux or vomiting. Swallowing thin liquids and foods without issues. OK to give information to daughter when she calls.
[2025-03-18] MEDS: 0.9 % Sodium Chloride Flush 3 ML SYRINGE IVFLUSH (11:23)
--- NOTE | 2025-03-18 11:42 | MHC.CM.PN ---
IMM 03/18/25, Pt lives with her dtr, Britni, who is her health careers instructor and HCP. She has home dialysis, a cane and a walker. She does not use home health services, dtr to transport home at DC. DCP: home, resume family care. CM to follow for DC needs.
[2025-03-18] MEDS: methylPREDNISolone Sod Succ 1,000 MG in 0.9 % Sodium Chloride 50 ML 66 MG IV (14:20)
--- NOTE | 2025-03-18 16:17 | PM.DS ---
DS: Providers Provider Date of Service: 03/18/25 Date of admission: 03/17/25 14:36 Date of discharge: 03/18/25 Primary care physician: Silvino Souza PA-C Consults: 03/17/25 16:49 Consult to Neurology Routine Consulting Provider: [facility] Reason for consultation: Acute vision loss Has provider been notified: No DS: Diagnosis Discharge Diagnosis (1) Acute loss of vision: Status: Acute (2) ESRD (end stage renal disease): Status: Acute (3) Hypertension: Status: Acute DS: Summary Hospital Course Hospital Course: [age] female sent from assistant front desk manager's office for possible bonner red spot assistant front desk manager concern for central retinal artery occlusion. Patient reports vision loss on the left side since in the a.m.> 72 hours no other neurologic deficits or complaints there is a documented TIA in the past. Discussed with ophthalmology. Admitted to hospital and given 1 g of Solu-Medrol daily x2 days. MR A of head orbits with contrast showed patency of ophthalmic arteries. Patient noted improvement in vision this morning. Given the need for peritoneal dialysis which is not performed at this facility, patient will be discharge to home her daughter we will do dialysis as scheduled and she will return to the ER tomorrow to get her 3rd and final dose of methylprednisolone. This case has been discussed with ophthalmology who will arrange for an outpatient biopsy. Was also noted that she had a moderate size pleural effusion and now had an O2 requirement. This can be worked up as an outpatient; she qualified for home O2 and we will be sent home on it. Time Attestation Discharge Coordination Time (in mins): 35 Quality: Safe Use of Opioids Does Pt have an Active Cancer Diagnosis on the Problem List?: No Quality: Stroke Does the patient have a stroke diagnosis?: No Physical Exam Vital Signs: Vital Signs: Last Vital Signs Temp 97.6 F 03/18/25 14:54 Pulse 62 03/18/25 14:54 Resp 19 03/18/25 14:54 BP 108/52 L 03/18/25 14:54 Pulse Ox 93 03/18/25 14:54 O2 Del Method Nasal Cannula 03/18/25 14:54 O2 Flow Rate 2 03/18/25 14:54 BMI result Body Mass Index 25.8 Const: Other: Awake alert no acute distress Resp: Other: Clear to auscultation bilaterally no rales rhonchi or wheezes Cardio: Other: No S4; positive S1-S2; no S3 murmurs rubs or gallops GI: Other: Soft nontender nondistended normoactive bowel sounds Extrem: Other: No edema bilaterally DS: Data Data Completed and Pending Labs on day of discharge: Laboratory Results - last 24 hr 03/18/25 03/18/25 04:30 06:58 WBC 7.7 RBC 3.33 L Hgb 10.5 L Hct 32.3 L MCV 97.0 MCH 31.5 MCHC 32.5 RDW 13.5 Plt Count 220 MPV 9.5 Immature Gran % (Auto) 0.8 H Neut % (Auto) 93.0 H Lymph % (Auto) 5.1 L [place] % (Auto) 0.8 L Eos % (Auto) 0.0 Baso % (Auto) 0.3 Lymph # (Auto) 0.4 L [place] # (Auto) 0.1 Eos # (Auto) 0.0 Baso # (Auto) 0.0 Abs Immat Gran (auto) 0.06 H Absolute Neuts (auto) 7.2 Absolute Nucleated RBC 0.000 Nucleated RBC % (auto) 0.0 Smear Tech's Comments VERIFIED ESR 67 H Sodium 138 Potassium 4.9 Chloride 109 H Carbon Dioxide 16 L Anion Gap 18 BUN 55 H Creatinine 6.70 H* Estim Creat Clear Calc 5.8 Estimated GFR 6 POC Glucose 162 H Random Glucose 179 H Calcium 8.7 Total Bilirubin 0.6 AST 18 ALT 9 Alkaline Phosphatase 74 C-Reactive Protein 2.19 H Total Protein 6.1 L Albumin 3.3 L Discharge Plan Discharge Anticipated Discharge Date/Time: 03/18/25 16:09 Patient Disposition: Home, Self-Care Discharge Diagnosis: Acute monocular vision loss/acute hypoxic respiratory failure Referrals: Silvino Souza PA-C [Primary Care Provider, Internal Medicine] - 1 Week Discharge Medications: New prednisone 20 mg tablet 60 mg PO DAILY Qty: 90 0RF Continued clopidogrel 75 mg tablet 75 mg PO DAILY Qty: 90 3RF pantoprazole 40 mg Tablet,Delayed Release (Dr/Ec) 40 mg PO DAILY@0630 ascorbic acid (vitamin C) 500 mg Capsule 500 mg PO MOWEFR@0900 calcium carbonate 600 mg calcium (1,500 mg) Tablet 600 mg PO DAILY acetaminophen 325 mg Capsule 650 mg PO Q6H PRN (Reason: Fever Or Pain) metoprolol succinate 50 mg tablet extended release 24 hr 50 mg PO DAILY anastrozole 1 mg tablet 1 mg PO BEDTIME levothyroxine 25 mcg tablet 25 mcg PO DAILY@0600 Nephro-Natasha 0.8 mg tablet 1 tab PO DAILY Januvia 25 mg tablet 25 mg PO DAILY cholecalciferol (vitamin D3) [Vitamin D3] 50 mcg (2,000 unit) Tablet 50 mcg PO BEDTIME atorvastatin 80 mg tablet 80 mg PO BEDTIME amlodipine 2.5 mg tablet 2.5 mg PO BEDTIME magnesium oxide 500 mg magnesium Tablet 500 mg PO DAILY furosemide 80 mg tablet 120 mg PO DAILY Discharge Orders: Discharge Order (Routine); Ordered 03/18/25 Ordered By: Niall Owusu Diet: Advance to usual diet Activity on Discharge: As tolerated Stand Alone Forms: Patient Portal Discharge page Print Language: Pashto Care Plan Goals: Returned to ER tomorrow for last dose of methylprednisolone. Health Concerns: Resume all medications as taken prior to hospital. Prednisone 60 mg daily until seen by PCP your ophthalmology. Ophthalmology will call you regarding a biopsy Plan of Treatment: Utilize O2 as ordered. Calls PCP for an appointment to follow up on pleural effusion Assessment: See discharge summary
--- NOTE | 2025-03-18 16:40 | PC.NURSE ---
Pt and dtr verbalize intent to come to ER tomorrow for steroid. Discharging on 2L O2, will use continuously at home. IV DC . Pt to take wheelchair to front entrance
--- NOTE | 2025-03-18 16:55 | PM.NEUROCN ---
History of Present Illness Data of Consult Service Date: 03/18/25 Primary Care Provider: Silvino Souza PA-C HPI Reason for consult: Loss of vision in the left eye 6 days ago. Headaches This is a 89 year old female sent from chipper feeder's office for possible bonner red spot chipper feeder concern for central retinal artery occlusion. Patient reports vision loss on the left side since in the a.m. which is 6 days ago. She said she had had some problems with that eye before but it was the better of the 2 eyes because she has a hole in the right eye. She can see light out of the left eye but not much more. She has a sense of movement and some outlines. She has also been having some headaches off and on. No other constitutional symptoms. She is known to have bilateral carotid stenosis and a CTA shows 80% bilateral internal carotid stenosis. Sed rate is 67 and CRP is 2.7. She was given 1 g of Solu-Medrol IV with a presumptive diagnosis of temporal arteritis. [facility] Past Medical History Medical History Bladder cancer PAD (peripheral artery disease) Cellulitis CKD (chronic kidney disease) Coronary artery disease Hypertension Diabetes Family History Family History Father Lung cancer Stomach ulcer Sister Colon cancer, Onset Age: 80 Breast cancer Heart disease HTN (hypertension) Mother Cirrhosis of liver Family/Other Stomach ulcer Surgical History Surgical History Hx of mastectomy S/P AAA repair Hx of colonoscopy Hx of endoscopy Hx of cardiac catheterization (~05/2020) Social History Social History Household Members: Children Household Members Other:: daughter Housing: House Do you presently have visiting nurse or other home services: No Alcohol intake: never Patient Tobacco Use Status: Former Tobacco user Years Smoked: 40 +/- Smoked in Last 30 Days: No e-Cigarette/Vaping Use: Never Used Use of substances other than those prescribed or required for medical reasons: No Have you been hit, kicked, punched, or otherwise hurt by someone within the past year? If so, by whom?: No Do you feel safe in your current relationship?: Yes Advance Directives: Yes Advance Directives on File: Yes Advance Directives Date on File: 09/27/21 Recently lost weight without trying: No Patient : No service: No Current occupational status: retired Meds Allergies Allergy/AdvReac Type Severity Reaction Status Date / Time No Known Allergies (No Known Allergy Verified 03/17/25 12:50 Allergies*) Active Medications: Current Medications Acetaminophen (Acetaminophen 325 Mg Tablet) 650 mg PO Q6H PRN PRN Reason: Pain, Mild 1-3,fever,headache Last Admin: 03/17/25 21:21 Dose: 650 mg Amlodipine Besylate (Amlodipine Besylate 2.5 Mg Tablet) 2.5 mg PO BEDTIME [facility]; Protocol Last Admin: 03/17/25 20:06 Dose: 2.5 mg Anastrozole (Anastrozole 1 Mg Tablet) 1 mg PO BEDTIME [facility] Last Admin: 03/17/25 20:06 Dose: 1 mg Ascorbic Acid (Ascorbic Acid 500 Mg Tablet) 500 mg PO MoWeFr@0900 [facility] Last Admin: 03/18/25 11:17 Dose: 500 mg Atorvastatin Calcium (Atorvastatin Calcium 80 Mg Tablet) 80 mg PO BEDTIME [facility] Last Admin: 03/17/25 20:07 Dose: 80 mg Calcium Carbonate (Calcium Carbonate 750 Mg Tab.Chew) 750 mg PO Q4H PRN PRN Reason: Heartburn Clopidogrel Bisulfate (Clopidogrel Bisulfate 75 Mg Tablet) 75 mg PO DAILY [facility] Last Admin: 03/18/25 08:09 Dose: 75 mg Furosemide (Furosemide 40 Mg Tablet) 80 mg PO DAILY [facility]; Protocol Last Admin: 03/18/25 11:16 Dose: 80 mg Heparin Sodium (Porcine) (Heparin Sodium,Porcine 5,000 Unit/Ml Vial) 5,000 unit SUBCUT Q8H [facility] Last Admin: 03/18/25 16:33 Dose: 5,000 unit Levothyroxine Sodium (Levothyroxine Sodium 25 Mcg Tablet) 25 mcg PO DAILY@0600 [facility] Last Admin: 03/18/25 05:48 Dose: 25 mcg Magnesium Hydroxide (Milk Of Magnesia 30 Ml Oral.Susp) 30 ml PO DAILY PRN PRN Reason: Constipation Melatonin (Melatonin 3 Mg Tablet) 6 mg PO BEDTIME PRN PRN Reason: Insomnia Last Admin: 03/18/25 00:24 Dose: 6 mg Metoprolol Succinate (Metoprolol Succinate Er 50 Mg Tab.Er.24h) 50 mg PO DAILY [facility]; Protocol Last Admin: 03/18/25 08:09 Dose: 50 mg Multivitamins/Vitamin C (Multivitamin Tablet) 1 tab PO DAILY [facility] Last Admin: 03/18/25 11:17 Dose: 1 tab Ondansetron HCl (Ondansetron Hcl 4 Mg/2 Ml Vial) 4 mg IVPUSH Q8H PRN PRN Reason: Nausea and Vomiting Pantoprazole Sodium (Pantoprazole Sodium 20 Mg Tablet.Dr) 40 mg PO DAILY@629 [facility] Last Admin: 03/18/25 05:48 Dose: 40 mg Sitagliptin Phosphate (Sitagliptin Phosphate 25 Mg Tablet) 25 mg PO DAILY [facility] Last Admin: 03/18/25 12:04 Dose: 25 mg Sodium Chloride (0.9 % Sodium Chloride Flush 3 Ml Syringe) [facility] Last Admin: 03/18/25 16:53 Dose: Not Given Vitamin D (Cholecalciferol (Vitamin D3) 25 Mcg Tablet) 50 mcg PO BEDTIME [facility] Last Admin: 03/17/25 20:06 Dose: 50 mcg Home Medications ?Medication ?Instructions ?Recorded ?Confirmed ?Last Taken ?Type ascorbic acid (vitamin C) 500 mg 500 mg PO MOWEFR@0909/26/21 03/17/25 03/17/25 History capsule pantoprazole 40 mg tablet,delayed 40 mg PO DAILY@0630 09/26/21 03/17/25 03/17/25 History release acetaminophen 325 mg capsule 650 mg PO Q6H PRN Fever Or Pain 12/24/22 03/17/25 Unknown History calcium carbonate 600 mg PO DAILY 12/24/22 03/17/25 03/17/25 History metoprolol succinate 50 mg 50 mg PO DAILY 12/24/22 03/17/25 03/17/25 History tablet,extended release 24 hr furosemide 80 mg tablet 120 mg PO DAILY 02/18/25 03/17/25 03/17/25 History amlodipine 2.5 mg tablet 2.5 mg PO BEDTIME 03/17/25 03/17/25 03/17/25 History anastrozole 1 mg tablet 1 mg PO BEDTIME 03/17/25 03/17/25 03/17/25 History atorvastatin 80 mg tablet 80 mg PO BEDTIME 03/17/25 03/17/2503/16/25 History cholecalciferol (vitamin D3) 50 50 mcg PO BEDTIME 03/17/25 03/17/25 03/16/25 History mcg (2,000 unit) tablet (Vitamin D3) levothyroxine 25 mcg tablet 25 mcg PO DAILY@0600 03/17/25 03/17/25 03/17/25 History magnesium oxide 500 mg PO DAILY 03/17/25 03/17/25 Unknown History sitagliptin phosphate 25 mg tablet 25 mg PO DAILY 03/17/25 03/17/25 03/17/25 History (Januvia) vitamin B complex-vitamin C-folic 1 tab PO DAILY 03/17/25 03/17/25 03/17/25 History acid 0.8 mg tablet (Nephro-Natasha) Physical Exam Vital Signs: Vital Signs: Last Vital Signs Temp 97.6 F 03/18/25 14:54 Pulse 62 03/18/25 14:54 Resp 19 03/18/25 14:54 BP 108/52 L 03/18/25 14:54 Pulse Ox 93 03/18/25 14:54 O2 Del Method Nasal Cannula 03/18/25 14:54 O2 Flow Rate 2 03/18/25 14:54 BMI result Body Mass Index 25.8 Neuro: Other: She is alert and oriented with normal intellectual functions. She has light perception in the left eye occasionally able to count fingers at 8 in but not consistently. Right eye vision is better preserved. She has slight droop of the left angle of the mouth. No drift of the upper extremities and the strength is normal reflexes hypoactive. Results Labs 03/18/25 04:30 03/18/25 04:30 Labs: Short CBC 03/18/25 Range/Units 04:30 WBC 7.7 (4.8-10.8) X10*3/uL Hgb 10.5 L (12.0-16.0) g/dl Hct 32.3 L (37.0-47.0) % Plt Count 220 (160-400) X10*3/uL BMP 03/18/25 04:30 Sodium 138 Potassium 4.9 Chloride 109 H Carbon Dioxide 16 L BUN 55 H Creatinine 6.70 H* Calcium 8.7 Liver Function 03/18/25 Range/Units 04:30 Total Bilirubin 0.6 (0.0-1.0) mg/dL AST 18 (5-31) U/L ALT 9 (0-31) U/L Alkaline Phosphatase 74 (39-117) U/L Albumin 3.3 L (3.5-5.0) g/dL Assessment and Plan (1) Acute loss of vision: Start date: 03/12/25 Status: Acute She has either an embolic occlusion of the central retinal artery on the left or temporal arteritis with loss of vision from arteritis. She also has significant carotid stenosis bilaterally a which is known. She has seen vascular surgery in the past. Recommendations: Temporal artery biopsy. She has received 1 g of Solu-Medrol IV. In the interim I would start her on prednisone 60 mg a day with omeprazole pending results of the biopsy. We will do serial sed rate every other day. Outpatient vascular surgery evaluation for bilateral carotid stenosis to see if she is a candidate for stenting. (2) Bilateral carotid artery stenosis without cerebral infarction: Status: Acute Procedures Date of Service Date of Service: 03/18/25
== END 2025-03-18 17:09 | disposition home or self-care (01) | DRG 124 ==
LOC: HO.ED 13:27 → HO.EDOVER 14:39
PROVIDERS: Physician Assistant Medical; Admitting Provider Hospitalist; Emergency Provider Emergency Medicine; PCP Physician Assistant Surgical; Visit Provider Hospitalist
DX: H34.12 Central retinal artery occlusion, left eye (principal); J96.01 Acute respiratory failure with hypoxia; N18.6 End stage renal disease; I12.0 Hypertensive chronic kidney disease with stage 5 chronic kidney disease or end stage renal disease; I25.10 Atherosclerotic heart disease of native coronary artery without angina pectoris; I65.23 Occlusion and stenosis of bilateral carotid arteries; M31.6 Other giant cell arteritis; E11.22 Type 2 diabetes mellitus with diabetic chronic kidney disease; E03.9 Hypothyroidism, unspecified; Z87.891 Personal history of nicotine dependence; Z99.2 Dependence on renal dialysis; Z79.02 Long term (current) use of antithrombotics/antiplatelets; Z79.890 Hormone replacement therapy; Z79.899 Other long term (current) drug therapy
CPT/HCPCS: 36415; 70496; 70498; 70546; 80048; 80053; 80076; 82803; 82947; 83735; 84484; 85025; 85610; 85652; 85730; 86140; 93005; 93306; 99285; A9585; J1644; J2919; J3475; Q9957; Q9967

== ENCOUNTER → 2025-03-17 12:56 | Outpatient (BNV) | payer MEDICARE, SELFPAY | PROVIDERS: Admitting Provider Hospitalist; Emergency Provider Emergency Medicine; PCP Physician Assistant Surgical; Visit Provider Radiology Diagnostic Radiology | DX: I65.23 Occlusion and stenosis of bilateral carotid arteries (principal) | CPT/HCPCS: 70496; 70498 ==

== ENCOUNTER 2025-03-17 14:36 | Outpatient (BNV) | payer MEDICARE, SELFPAY | END 2025-03-18 12:26 | PROVIDERS: Admitting Provider Hospitalist; Emergency Provider Emergency Medicine; PCP Physician Assistant Surgical; Visit Provider Radiology Diagnostic Radiology | DX: H53.132 Sudden visual loss, left eye (principal) | CPT/HCPCS: 70546 ==

== ENCOUNTER 2025-03-17 14:36 | Outpatient (BNV) | payer MEDICARE, SELFPAY | END 2025-03-17 14:57 | PROVIDERS: Admitting Provider Hospitalist; Emergency Provider Emergency Medicine; PCP Physician Assistant Surgical; Visit Provider Internal Medicine | DX: R94.31 Abnormal electrocardiogram [ECG] [EKG] (principal); I49.9 Cardiac arrhythmia, unspecified | CPT/HCPCS: 93010 ==

== ENCOUNTER 2025-03-17 14:36 | Outpatient (BNV) | payer MEDICARE, SELFPAY | END 2025-03-18 07:00 | PROVIDERS: Admitting Provider Hospitalist; Emergency Provider Emergency Medicine; PCP Physician Assistant Surgical; Visit Provider Internal Medicine | DX: I27.20 Pulmonary hypertension, unspecified (principal); I42.2 Other hypertrophic cardiomyopathy; I35.8 Other nonrheumatic aortic valve disorders; I34.81 Nonrheumatic mitral (valve) annulus calcification | CPT/HCPCS: 93306 ==

== ENCOUNTER → 2025-03-17 14:36 | Outpatient (BNV) | payer MEDICARE, SELFPAY | PROVIDERS: Admitting Provider Hospitalist; Emergency Provider Emergency Medicine; PCP Physician Assistant Surgical; Visit Provider Hospitalist | DX: I12.0 Hypertensive chronic kidney disease with stage 5 chronic kidney disease or end stage renal disease (principal); N18.6 End stage renal disease; H53.132 Sudden visual loss, left eye | CPT/HCPCS: 99223; 99239 ==

== ENCOUNTER → 2025-03-17 14:36 | Outpatient (BNV) | payer MEDICARE, SELFPAY | PROVIDERS: Admitting Provider Hospitalist; Emergency Provider Emergency Medicine; PCP Physician Assistant Surgical; Visit Provider Psychiatry & Neurology Neurology | DX: H53.139 Sudden visual loss, unspecified eye (principal); I65.23 Occlusion and stenosis of bilateral carotid arteries | CPT/HCPCS: 99222 ==

== ENCOUNTER 2025-03-19 14:50 | Outpatient (REF) | payer MEDICARE, SELFPAY ==
--- OUTSIDE RECORDS SUMMARY | 2016-03-20 | XMS_ITS | Encounter Summary ---
Author Organization [facility] Address [address] [place] [phone] Phone Care Team Providers Care Roll Off Driver Name Role Phone Unavailable Primary Care Provider Unavailabl e Encounter Details Date Type Department Care Team (Late st Contact Info) Description 03/20/2016 Hospital Encounter [facility],Outside Imaging [address] [place] [address] System, Provider Not In, [place] [address] Social History Tobacco Use Types Packs/Day Years Used Date Smoking Tobacco: Former Cigarettes 2 44 0 09/12/1949 - 05/28/1993 Smokeless Tobacco: Never Alcohol Use Standard Drinks/Week Comments No 0 (1 standard drink = 0.6 oz pur e alcohol) Education Answer Date Recorded Are you interested in more education? Not on erasmo e 10/27/2022 Are you concerned about learning? Not on file 10/27/2022 No 10/27/2022 No 10/27/2022 Digital Access Answer Date Recorded No 11/25/2022 No 11/25/2022 Reliable internet access at home? Not on file 11/25/2022 Device with a working camera? Not on file Intimate Partner Violence Answer Date R ecorded Denied Basic Needs Not on file 05/12/2024 In the past 12 months have y ou been in a relationship with a person who hurts, threatens, or tries to control you? No 05/12/2024 Worried food would run out Not on file 05/12 In the past 12 months have y ou been in a relationship with a person who hurts, threatens, or tries to control you? No 05/12/2024 Comments No Sex and Gender Information Value Date Recorded Sex Assigned at Female 11/10/2021 9:56 PM EDT Legal Sex Female 10:14 PM EDT Gender Identity Female 11/10/2021 9:56 PM EDT Sexual Orientation Straight 11/10/2021 9: 56 PM EDT documented as of this encounter Functional Status * Calculated C-SSRS Risk Score (Lifetime/Recent) Answer Date of Assessment Author No Risk Indicated 08/03/2020 6:03 PM Bria Ceja RN * [place] Suicide Severity Rating Scale (Screener/Recent Self-Report) Question Answer Date of Assessment Author 1. Wish to be (Past 1 Month) No 021 6:03 PM Bria Ceja RN 2. Non-Specific Active Suici rhoda Thoughts (Past 1 Month) No 08/03/2020 6:03 PM Maru Ceja RN 6. Suicidal Behavior (Lifetime) No 6:03 PM Bria Ceja RN documented as of this encounter Plan of Treatment Upcoming Encounters Date Type Department Care Team (Late st Contact Info) Description 11/03/2024 Procedure Pass [address] [address] 03/25/2025 8:40 AM EDT Office Visit [facility] Internal Medicine [address] [place] [address] Silvino Souza PA-C [address] [place] [email or web address] 05/29/2025 3:30 PM EST Appointment [address] [address] Vick Gibson MD [address] [place] [phone] 06/04/2025 4:00 PM EST Office Visit [facility] [address] [place] [address] Vick Gibson MD [address] [place] [address] [email or web address] documented as of this encounter Procedures Procedure Name Priority Date/Time Associated Diagnosis Comments BI MAMMOGRAM OUTSIDE (NO INTERPRETATION) Routine 03/20/2016 12:00 AM EDT documented in this encounter Results * Mammogram Outside (No Interpretation) (03/20/2016 12:00 AM EDT) Narrative SYSTEMGENERATED, DOCUMENTATION - 05/23/2017 11:50 AM EST This study is for PACS storage only and not for interpretation. us Provider Not In System PhD IMG OUTSIDE IMAGING W /OUT INTERPRETATION Final Result documented in this encounter Visit Diagnoses Not on filedocumented in this encounter Additional Health Concerns Infection Onset Date Last Indicated Resolved Time CoV-Risk 09/01/2020 09/01/2020 09/11/2020 1:23 AM EST CoV-Exposed Comment:Recent close contact documented in the COVID-19 Amb Triage Form 06/28/2021 06/28/2021 07/23/2021 1:[address] documented as of this encounter Additional Source Comments The information contained in this document represents components of the legal health record. It is not the complete legal health record.[facility]
--- OUTSIDE RECORDS SUMMARY | 2024-03-24 11:45 | XMS_ITS ---
Author Organization [facility] Address [address] [place] [phone] Care Team Providers Care Electrifier Operator Name Role Phone Silvino Souza Primary Care Provider Mallorie Marie [phone] Encounters Encounter Location Date Provider Diagnosis [address] [address] 03/24/2024 Mallorie Campos Plan Of Treatment Next Appt Details Provider Name:Mallorie Camila Campos , 05/11/2025 03:00:00 PM, [address] [place] [address], [phone], Progress Notes * Paulette GARCIAS LDOB: (89 yo F)Acc No.[id number]:03/24/2024 Progress Note Patient: Paulette OLSON Provider: Zabrina Campos DPM :1935 A ge:88 Y S ex:Female Date:03/24/2024 Address:[address] [place], [place] [phone] Pcp:Silvino Souza Subjective: * Chief Complaints: * * Medical History: Objective: * Vitals: Assessment: Plan: * Treatment: * Images: * The named appointment provid er may or may not be the originator of this progress note, and it is not deemed complete until electronically signed by the appointment provider. Sign off status: Pending * Provider: Zabrina Campos DPM Date: 0 03/24/2024 Generated for Printi ng/Faxing/eTransmitting on: 0 03/19/2025 04:31 PM EDT
--- NOTE | ~2025-03-19 | US_ITS ---
EXAMINATION: US EXTRACRANIAL CAROTID DUPLEX, BILATERAL CLINICAL INFORMATION: Bilateral carotid disease. Check for temporal arteries. COMPARISON: Ultrasound carotid Doppler bilateral 11/26/2024 TECHNIQUE: Real-time ultrasound and Doppler techniques (integrating B-mode 2-D vascular images, Doppler spectral analysis and color-flow Doppler imaging) were utilized to interrogate the extracranial carotid arteries, the vertebral arteries and proximal subclavian arteries bilaterally. The degree of stenosis is determined by criteria similar to NASCET. FINDINGS: RIGHT TEMPORAL ARTERY: The right temporal artery velocity is dampened and measures 33 cm/second. This is likely secondary to carotid artery disease and atherosclerotic disease in the proximal external carotid artery. On imaging the right temporal artery has a normal appearance without wall thickening. There right frontal ramus artery velocity is 36 cm/second and appears normal. LEFT TEMPORAL ARTERY: The left temporal artery velocity measures 74 cm/second. It there is normal color Doppler flow without wall thickening or edema. The left frontal ramus artery velocity measures 72's centimeters/second and appears normal. US/US carotid duplex BI IMPRESSION: Diminished velocity right common temporal artery most likely secondary to atherosclerotic disease in the right common and right external carotid artery. On the previous ultrasound the right ECA velocity was elevated measuring 172 cm/second. Normal left temporal artery on ultrasound. There is no suggestion of temporal arteritis on either side by ultrasound Electronically signed by: Sd Adkins MD 03/20/2025 07:13 AM EDT
--- OUTSIDE RECORDS SUMMARY | 2025-03-19 16:31 | XMS_ITS | Encounter Summary ---
Author Organization [facility] Address [address] [place] [address] [place] [address] Phone Care Team Providers Care Adjuster Arbitrator Name Role Phone Ene Menon MECHANICAL STRIPER Primary Care Provider Niall Tobar MD Unavailable Vick Gibson MD Unavailable [phone] Chavo Zimmer MD Unavailable Ene Menon MECHANICAL STRIPER Primary Care Provider [phone] Silvino Souza PA-C Primary Care Provider [phone] Encounter Details Date Type Department Care Team (Late st Contact Info) Description 09/03/2023 Ancillary Orders [facility] at [address] [phone] Chris Stokes MD [address] [place] [address] [email or web address] History of breast cancer (Primary Dx); Lump [...] st Contact Info) Description 11/03/2024 Procedure Pass [address] [address] 03/25/2025 8:40 AM EDT Office Visit [facility] Medical [facility] Internal Medicine [address] [place] [address] Silvino Souza PA-C [address] [place] [address] 05/29/2025 3:30 PM EST Appointment [address] [address] Vick Gibson MD [address] [place] [address] [email or web address] 06/04/2025 4:00 PM EST Office Visit [facility] at [address] [address] Vick Gibson MD [address] [place] [address] [phone] documented as of this encounter Results * [...] at 4:30 PM. us Chris Stokes MD [facility] BREAST Final Result documented in this [...] documented as of this encounter Care Teams Adjuster Arbitrator Relationship Specialty Start Date End Date Ene Menon MECHANICAL STRIPER PCP - General Family Medicine 03/08/18 09/04/23 Ene Menon NP [address] [place] [address] PCP - General 01/18/24 01/30/24 Silvino Souza PA-C [address] [place] [address] PCP - General Physician Nail Feeder 01/31/24 Niall Tobar MD [address] [place] [address] [place] [address] Ophthalmology 10/01/19 Vick Gibson MD [address] [place] [address] Primary Oncologist Medical Oncology 05/24/20 Chavo Zimmer MD [address] [place] [address] Nephrology 01/31/23 documented as of this encounter Additional Source Comments The information contained in this document represents components of the legal health record. It is not the complete legal health record.[facility]
--- OUTSIDE RECORDS SUMMARY | 2025-03-19 16:31 | XMS_ITS | Clinical Summary ---
Author Organization [facility] Address [address] [place] [address] Phone Care Team Providers Care Hockey Instructor Name Role Phone Niall Tobar MD Unavailable Vick Gibson MD Unavailable [phone] Chavo Zimmer MD Unavailable Silvino Souza PA-C Primary Care Provider [phone] Allergies No known active allergies Medications ascorbic [...] history of heart failure who follows with [facility] cardiology. She is maintained on 120 mg of Lasix daily. Assessment & Plan (05/12/2024 12:10 PM EST): Continue 120 mg of Lasix obtain a CMP Assessment & Plan (04/11/2024 4:05 PM EDT): Continue Lasix 120mg daily. Patient is followed by Cardiology at [facility]. Assessment & Plan (02/14/2021 2:58 PM EDT): She has continued on lasix 20 mg, asymptomatic at this time, repeat echo ordered. S/P CABG x 2 10/24/2018 Assessment & Plan (11/13/2024 11:50 AM EDT): Patient underwent a CABG followed by Cardiology at [facility]. Patient is on metoprolol succ 50mg daily, plavix 75mg daily and lipitor 80mg daily Assessment & Plan (04/11/2024 4:07 PM EDT): Patient underwent a CABG followed by Cardiology at [facility]. Patient is on metoprolol succ 50mg daily, plavix 75mg daily and lipitor 80mg daily Assessment & Plan (07/25/2022 7:54 AM EST): Asymptomatic after bypass surgery Assessment & Plan (2022 11:05 AM EST): She had two-vessel coronary artery bypass grafting in 2018 at [facility]. She feels well with no chest pain. We will continue to optimize her risk factors. Continue with aspirin, beta-gina, and statin. Assessment & Plan (02/14/2021 2:56 PM EDT): Patient has a past medical history of coronary artery disease status post two- vessel CABG in 2018 at [facility]. She has continued on aspirin, [...] (04/11/2024 4:10 PM EDT): Patient follows with [facility] kidney whom is on HD 5 days [...] 33. Patient to continue to follow with [facility] cardiology and continue atorvastatin 80 mg daily. [...] left renal artery on 04/22/2020 at [facility]. She has continued on aspirin which we will continue long-term. Blood pressures appear to be better controlled. She was recommended a repeat renal artery ultrasound which I have ordered for her for June 2021. Assessment & Plan (05/11/2020 3:45 PM EST): Patient is status post a bare-metal stent to the left renal artery on 04/22/2020 at [facility]. We recommend aspirin long-term and continuing [...] Encounters Date Type Department Care Team Description 03/18/2025 Orders Only [facility] Internal Medicine [address] [place] [address] ProviderDarnell MD 02/11/2025 Telephone [facility] Internal Medicine [address] [place] [address] Silvino Souza PA-C No Show (FUV 02/11 + pt canceled due to feeling sick) 01/12/2025 Refill [facility] Internal [facility] [address] [place] [address] Chris Stokes MD Medication Refill from Last [...] Contact Info) Description 11/03/2024 Procedure Pass [address] [address] 03/25/2025 8:40 AM EDT Office Visit [facility] Medical [facility] Internal Medicine [address] [place] [address] Silvino Souza PA-C [address] [place] [address] [email or web address] 05/29/2025 3:30 PM EST Appointment [address] [address] Vick Gibson MD [address] [place] [address] 06/04/2025 4:00 PM EST Office Visit [facility] at [address] [address] Vick Gibson MD [address] [place] [address] [email or web address] Health Maintenance Due Date Last Done Comments INFLUENZA VACCINE (#1) 2025 , 04/02/2023, 03/02/2023, Additional history exists COVID-19 VACCINE [...] this topic Medical Devices Implanted Type Area Handle Sander Operator Device Identifier Shelf Expiration Date Model / Serial / Lot Marker Ultraclip 17ga 10cm Tissue Dual Trigger Breast Ti Heart Shape Bx/5ea - [id number] Implanted:Qty: 1 on 07/09/2020 by Filiberto Medel MD at [facility] Right: Breast CR [employer] [id number] / / Marker Ultraclip 17ga 10cm Tissue Dual Trigger Breast Ti Heart Shape Bx/5ea - [id number] Implanted:Qty: 1 on 09/10/2023 by Elvira Ward MD at [facility] Right: Chest Wall [employer] [id number] / / Procedures Procedure Name Priority Date/Time Associated Diagnosis Comments OUTSIDE CT IMAGING REPORT ONLY Routine 03/17/2025 3:17 PM EDT TSH WITH REFLEX Routine 10/24/2024 [...] Relevant to Health Maintenance Results * Outside CT Imaging Report Only (03/17/2025 3:17 PM EDT) Historical Provider IMG CT Final Res ult * (ABNORMAL) TSH with reflex (10/24/2024 10:37 AM EDT) TSH 4.81(H) 0.27 - 4.20 uIU/mL [facility] Blood 10/24/2024 10:3 7 AM EDT 10/24/2024 10:40 AM EDT us Silvino Souza PA-C LAB BLOOD ORDERABLES Final Re sult [facility] [address] [place] [address] * DIABETES EYE EXAM FOR RESULT ENTRY [...] a total bone mineral density of 0.696 g/al7aigm a T- score of -2.0. Z score [...] density falls within the osteoporosis range. Vick NICK BD BONE DENSITY DEXA Final Result from Last 3 Months or Most Recently Relevant to Health Maintenance Insurance MEDICARE PART A & B [facility] MEDICARE REPLACEMENT MEDICARE PART A & B [facility] MEDICARE REPLACEMENT MEDICARE PART A & [place] [address] [place] [address] MEDICARE REPLACEMENT MEDICARE PART A & B MEDICARE REPLACEMENT MEDICARE PART A & B MEDICARE REPLACEMENT MEDICARE PART A & B MEDICARE REPLACEMENT MEDICARE PART A & B MEDICARE REPLACEMENT MEDICARE PART A & B MEDICARE REPLACEMENT MEDICARE PART A & B [facility] MEDICARE REPLACEMENT [place] [id number] Advance Directives For more information, please contact: [phone] (9AM - 5PM [facility], Sunday-Sunday) Documents on File Type Date Recorded Patient Post Graduate Internship Expl anation Power of Captain/Airline Pilot * Full Code (Latest Code Status on File) Date Activated Date Inactivated Comments 08/03/2020 3:07 PM Question Answer Comments Code Status Confirmed With: Patient * Full Code Date Activated Date Inactivated Comments 08/03/2020 6:34 AM 08/03/2020 3:07 PM Question Answer Comments Code Status Confirmed With: Patient Care Teams Hockey Instructor Relationship Specialty Start Date End Date Silvino Souza PA-C [address] [place] [address] [phone] [email or web address] PCP - General Physician Golf Caddy 01/31/24 Niall Tobar MD [address] [place] [address] [address] [place] [address] Ophthalmology 10/01/19 Vick Gibson MD [address] [place] [address] [email or web address] Primary Oncologist Medical Oncology 05/24/20 Chavo Zimmer MD [address] [place] [address] Nephrology 01/31/23 Additional Source Comments The information contained in this document represents components of the legal health record. It is not the complete legal health record.[facility]
--- OUTSIDE RECORDS SUMMARY | 2025-03-19 16:31 | XMS_ITS | Encounter Summary ---
Author Organization [facility] Address [address] [place] [address] Phone Care Team Providers Care Management Department Chair Name Role Phone Ene Menon RN UNIT MANAGER Primary Care Provider [phone] Niall Tobar MD Unavailable [phone] Chavo Zimmer MD Unavailable Vick Gibson MD Unavailable [phone] Zehra Azevedo PA-C Unavailable dede Chavo Zimmer MD Unavailable Ene Menon RN UNIT MANAGER Primary Care Provider [phone] Silvino Souza PA-C Primary Care Provider [phone] Encounter Details Date Type Department Care Team (Late st Contact Info) Description 03/28/2022 Procedure Pass [address] [address] Social History Tobacco Use Types Packs/Day Years [...] st Contact Info) Description 11/03/2024 Procedure Pass [address] [address] 03/25/2025 8:40 AM EDT Office Visit [facility] Internal Medicine [address] [place] [address] Silvino Souza PA-C [address] [place] [address] 05/29/2025 3:30 PM EST Appointment [address] [address] Vick Gibson MD [address] [place] [address] 06/04/2025 4:00 PM EST Office Visit [facility] at [address] [address] Vick Gibson MD [address] [place] [address] documented as of this encounter Visit Diagnoses Not on filedocumented in this encounter Additional Health Concerns Assessment Noted Time PHQ-9 Depression Total Score: 1 08/01/19 23 11:19 AM EST PHQ-2 Depression Total Score: 0 08/01/19 23 11:19 AM EST documented as of this encounter Care Teams Management Department Chair Relationship Specialty Start Date End Date Ene Menon NP PCP - General Family Medicine 03/08/18 09/04/23 Ene Menon NP [address] [place] [address] 6 [place] [address] PCP - General 01/18/24 01/30/24 Silvino Souza PA-C [address] [place] [address] PCP - General Physician Director Water And [employer] Services 01/31/24 Niall Tobar MD [address] [place] [address] Dr HOSKINS [address] [place] [address] Ophthalmology 10/01/19 Chavo Zimmer MD [address] [place] [address] Dr HOSKINS [address] [place] [address] Nephrology 10/03/19 01/30/23 Vick Gibson MD [address] [place] [address] Primary Oncologist Medical Oncology 05/24/20 Zehra Azevedo PA-C [address] [place] [address] Physician Director Water And Waste Services Medical Oncology 03/21/22 08/20/23 Chavo Zimmer MD [address] [place] [address] Nephrology 01/31/23 documented as of this encounter Additional Source Comments The information contained in this document represents components of the legal health record. It is not the complete legal health record.[facility]
--- OUTSIDE RECORDS SUMMARY | 2025-03-19 16:31 | XMS_ITS | Encounter Summary ---
Author Organization [facility] Address [address] [place] [address] [place] [address] Phone Care Team Providers Care Manager Paper Name Role Phone Ene Menon HAMMER OPERATOR Primary Care Provider [phone] Niall Tobar MD Unavailable Vick Gibson MD Unavailable [phone] Chavo Zimmer MD Unavailable Ene Menon HAMMER OPERATOR Primary Care Provider [phone] Silvino Souza PA-C Primary Care Provider [phone] Encounter Details Date Type Department Care Team (Late st Contact Info) Description 09/03/2023 Procedure Pass [facility], [address] [address] Social History Tobacco Use Types Packs/Day Years [...] st Contact Info) Description 11/03/2024 Procedure Pass [address] [address] 03/25/2025 8:40 AM EDT Office Visit [facility] Internal Medicine [address] [place] [address] Silvino Souza PA-C [address] [place] [address] 05/29/2025 3:30 PM EST Appointment [address] [address] Vick Gibson MD [address] [place] [address] 06/04/2025 4:00 PM EST Office Visit [facility] at [address] [address] Vick Gibson MD [address] [place] [address] documented as of this encounter Visit Diagnoses Not on filedocumented in this encounter Additional Health Concerns Assessment Noted Time PHQ-9 Depression Total Score: 1 08/01/19 23 11:19 AM EST PHQ-2 Depression Total Score: 0 02/01/20 1:19 PM EDT documented as of this encounter Care Teams Manager Paper Relationship Specialty Start Date End Date Ene Menon, HAMMER OPERATOR PCP - General Family Medicine 03/08/18 09/04/23 Ene Menon NP [address] [place] [address] 6 [place] [address] PCP - General 01/18/24 01/30/24 Silvino Souza PA-C [address] [place] [address] PCP - General Physician Grain Roaster 01/31/24 Niall Tobar MD [address] [place] [address] [place] [address] Ophthalmology 10/01/19 Vick Gibson MD [address] [place] [address] Primary Oncologist Medical Oncology 05/24/20 Chavo Zimmer MD [address] [place] [address] Nephrology 01/31/23 documented as of this encounter Additional Source Comments The information contained in this document represents components of the legal health record. It is not the complete legal health record.[facility]
--- OUTSIDE RECORDS SUMMARY | 2025-03-19 16:31 | XMS_ITS | Patient Health Record ---
Author Organization [facility] Address [address] [place] [address] Care Team Providers Care Server Support Technician Name Role Phone Silvino Souza Primary Care Provider Mallorie Marie Unavailable [phone] Allergies No Known Allergies Results Component Value [...] Polyneuropathy due to type 2 diabetes mellitus (130674328) Type 2 diabetes mellitus with diabetic polyneuropathy (E11.42) Active confirmed Vital Signs Blood pressure diastolic 70 mm Hg 02/02/2025 Height 5 ft 6.5in in 02/02/2025 Blood pressure systolic 110 mm Hg 02/02/2025 Weight 165 lbs 02/02/2025 BMI 26.23 kg/m2 02/02/2025 Procedures Procedure Date Ordered Date Performed Result Body Sit e 56913-GSKQFDX NAIL, 6 OR MORE 07/24/2024 N/A 87568-Ulumemwt Plate 07/24/2024 N/A 21156-HFKP SKIN LESIONS, 2 TO 4 07/24/2024 N/A 64474-HCGIKJE NAIL, 6 OR MORE 10/23/2024 N/A 96075-UEZE SKIN LESIONS, 2 TO 4 10/23/2024 N/A 06111-SUSKYNJ NAIL, 6 OR MORE 02/02/2025 N/A 63312-UJEH SKIN LESIONS, 2 TO 4 02/02/2025 N/A Encounters Encounter Location Date Provider Diagnosis [address] [address] 07/24/2024 Mallorie Campos Type 2 diabetes mellitus with diabetic polyneuropathy E11.42 ; Other hammer toe(s) (acquired), right foot M20.41 ; Tinea unguium B35.1 ; Pain in left foot M79.672 ; Other hammer toe(s) (acquired), left foot M20.42 ; Ingrown nail L60.0 ; Hallux valgus of right foot M20.11 and Hallux valgus of left foot M20.[address] [address] 10/23/2024 Mallorie Campos Type 2 diabetes mellitus with diabetic polyneuropathy E11.42 and Tinea unguium B35.[address] [address] 02/02/2025 Malloriecarol Campos Type 2 diabetes mellitus with diabetic polyneuropathy E11.42 ; Tinea unguium B35.1 ; Pain in right toe(s) M79.674 ; Contusion of lesser toe of right foot without damage to nail, initial encounter S90.121A and Closed nondisplaced fracture of proximal phalanx of lesser toe of right foot, initial encounter S92.514A [address] [address] 03/24/2024 Mallorie Black Assessments Encounter Date Diagnosis [...] X ray : Foot, right 3V 02/02/2025 82310-ALGMGEH NAIL, 6 OR MORE 02/02/2025 43813-YXTTZBM NAIL, 6 OR MORE 07/24/2024 15205-IHINOZT NAIL, 6 OR MORE 10/23/2024 03298-WWUIDDB NAIL, 6 OR MORE 02/05/2023 66786-KLOHDPR NAIL, 6 OR MORE 05/14/2023 07681-UEUXTJE NAIL, 6 OR MORE 08/27/2023 13139-MHKIAEN NAIL, 6 OR MORE 12/10/2023 20633-ZXNJTOF NAIL, 6 OR MORE 05/13/2018 70542-GCSCCYJ NAIL, 6 OR MORE 08/05/2018 61638-EMWHGRA NAIL, 6 OR MORE 10/28/2018 44225-UISFWPS NAIL, 6 OR MORE 01/20/2019 76059-SANNTMI NAIL, 6 OR MORE 04/17/2019 97677-HGFXLJT NAIL, 6 OR MORE 07/10/2019 56347-OYCETOF NAIL, 6 OR MORE 02/09/2020 81584-TPSHJJT NAIL, 6 OR MORE 05/17/2020 37257-QFJFQSO NAIL, 6 OR MORE 08/23/2020 06215-DYYSXQJ NAIL, 6 OR MORE 11/22/2020 94995-EIPXACM NAIL, 6 OR MORE 05/19/2021 37120-AZYSVGC NAIL, 6 OR MORE 09/01/2021 12054-MVCIALZ NAIL, 6 OR MORE 02/27/2022 99158-UPNSMMB NAIL, 6 OR MORE 06/13/2022 10566-ECMFHPZ NAIL, 6 OR MORE 11/21/2021 92845-WUCJQAH NAIL, 6 OR MORE 11/06/2022 14815-HFLWRXZ NAIL, 6 OR MORE 03/17/2013 05211-SZJUCRO NAIL, 6 OR MORE 06/04/2013 28954-OGJHVQM NAIL, 6 OR MORE 09/03/2013 83535-VOIDZZH NAIL, 6 OR MORE 12/08/2013 57834-TPPGRHI NAIL, 6 OR MORE 05/25/2014 50613-YEFFDTJ NAIL, 6 OR MORE 08/12/2014 27864-RQHNYUK NAIL, 6 OR MORE 10/22/2014 15275-ZEMTASE NAIL, 6 OR MORE 01/11/2015 66711-GBHWADC NAIL, 6 OR MORE 03/12/2014 31769-JIDKMXO NAIL, 6 OR MORE 04/05/2015 82415-QEBMMSK NAIL, 6 OR MORE 10/02/2016 63523-RRBXLEC NAIL, 6 OR MORE 12/25/2016 17958-HPIKASR NAIL, 6 OR MORE 03/19/2017 03560-ULMNANW NAIL, 6 OR MORE 06/11/2017 80614-IQSUCMF NAIL, 6 OR MORE 09/03/2017 08628-ZZCLIHF NAIL, 6 OR MORE 11/19/2017 16128-MHGTRFM NAIL, 6 OR MORE 02/11/2018 25981-Uwjbzfbp Plate 04/05/2015 72166-Czavtgjt Plate 03/12/2014 81445-Xcskvqnk Plate 01/11/2015 30102-Pudioubv Plate 10/22/2014 59132-Karhzuuu Plate 08/12/2014 53074-Psrkasfa Plate 05/25/2014 13766-Wkmbzyah Plate 12/08/2013 74579-Muvivaih Plate 09/03/2013 53787-Qmiwbhla Plate 07/24/2024 30337-Lzzbfftc Plate Each Additional 10/2013 87815-Wnllhifh Plate Each Additional 03/2014 75179-Cqukpkpp Plate Each Additional 38650-Gmwzpkqt Plate Each Additional 05/2015 32435-Hzegaxpk Plate Each Additional 21259-Hzjkmcsd Plate Each Additional 89429-Bfrsmhiy Plate Each Additional 10/2014 00630-Eklmlpym Plate Each Additional 05/2014 94710-ZNRJ SKIN LESIONS, OVER 4 06/17/20 15 48747-HGWA SKIN LESIONS, OVER 4 08/30/19 16 99847-ERAG SKIN LESIONS, OVER 4 11/22/19 16 82365-FRNH SKIN LESIONS, OVER 4 02/02/20 16 38835-RWVG SKIN LESIONS, OVER 4 04/13/20 16 21512-YCBF SKIN LESIONS, OVER 4 07/10/19 17 01089-TJKZ SKIN LESIONS, 2 TO 4 04/05/20 15 26652-HXTB SKIN LESIONS, 2 TO 4 10/03/19 17 13820-ZWZV SKIN LESIONS, 2 TO 4 12/26/19 17 01994-LLBK SKIN LESIONS, 2 TO 4 06/11/20 17 02564-JSPR SKIN LESIONS, 2 TO 4 03/19/20 17 62191-QCUE SKIN LESIONS, 2 TO 4 05/13/20 18 69036-ANLI SKIN LESIONS, 2 TO 4 02/12/20 18 31670-MUSS SKIN LESIONS, 2 TO 4 09/04/19 18 47244-IPEL SKIN LESIONS, 2 TO 4 11/20/19 18 47356-YADX SKIN LESIONS, 2 TO 4 03/12/20 14 75109-FMSW SKIN LESIONS, 2 TO 4 01/12/20 15 10165-CYZT SKIN LESIONS, 2 TO 4 10/23/19 15 08187-EYTR SKIN LESIONS, 2 TO 4 08/12/19 15 49244-BCHO SKIN LESIONS, 2 TO 4 05/25/20 14 88731-FFCH SKIN LESIONS, 2 TO 4 12/09/19 14 25805-HUWY SKIN LESIONS, 2 TO 4 09/04/19 14 36184-UPWZ SKIN LESIONS, 2 TO 4 06/04/20 13 85989-WEEK SKIN LESIONS, 2 TO 4 03/17/20 13 88412-CEJA SKIN LESIONS, 2 TO 4 10/24/19 25 20729-LENJ SKIN LESIONS, 2 TO 4 02/03/20 25 71880-RWWN SKIN LESIONS, 2 TO 4 07/24/19 93128-UMMT SKIN LESIONS, 2 TO 4 12/10/19 24 17919-JLHU SKIN LESIONS, 2 TO 4 08/27/19 24 96905-HMDU SKIN LESIONS, 2 TO 4 05/14/20 75323-UVFI SKIN LESIONS, 2 TO 4 02/06/20 23 14947-HMSO SKIN LESIONS, 2 TO 4 02/28/20 22 48700-ROSE SKIN LESIONS, 2 TO 4 06/13/20 50958-NEOV SKIN LESIONS, 2 TO 4 11/07/19 63822-TPFH SKIN LESIONS, 2 TO 4 11/22/19 73807-IINM SKIN LESIONS, 2 TO 4 09/02/19 22 41323-SQLH SKIN LESIONS, 2 TO 4 05/19/20 21 75309-NUEG SKIN LESIONS, 2 TO 4 11/23/19 21 66865-KMUG SKIN LESIONS, 2 TO 4 08/23/19 21 56435-GCUY SKIN LESIONS, 2 TO 4 05/17/20 20 70723-BKWH SKIN LESIONS, 2 TO 4 02/09/20 20 91111-KBFW SKIN LESIONS, 2 TO 4 07/10/19 20 90465-VAVV SKIN LESIONS, 2 TO 4 04/17/20 19 05836-ITNC SKIN LESIONS, 2 TO 4 01/21/20 19 48877-LIXQ SKIN LESIONS, 2 TO 4 10/29/19 19 04144-INKA SKIN LESIONS, 2 TO 4 08/05/19 L7852-EMIHXQIA DYSTROPHIC NAILS ANY # E0541-EMAFCWJT DYSTROPHIC NAILS ANY # A8995-OPOBTBXO DYSTROPHIC NAILS ANY # L0849-NJCVDDTB DYSTROPHIC NAILS ANY # I1729-QWZFZZXJ DYSTROPHIC NAILS ANY # B9006-EKOVEOGX DYSTROPHIC NAILS ANY # 25745,B9905-LCD TENDON SHEATH/LIGAMENT 0 02/02/2016,K0800-ZJQ TENDON SHEATH/LIGAMENT 1 50,L1959-NSD TENDON SHEATH/LIGAMENT 0 12/27/2015 Next Appt Details Provider Name:Mallorie Campos , 05/11/2025 03:00:00 PM, [address] [place], [address], Insurance Providers Payer Name Payer Address Payer Phone Subscriber Number Group Number Insured Name Patient Relationship to Insured Coverage Start Date Coverage End Date [employer] Medicare Adv-30080 [address] [address] [place] [address] [id number] Paulette Martínez Self - patient is the [...] Surgery -right 10/07/2020 Hospitalization History Reason Date(Month/Year) [facility]- trouble breathing 09/2022 [facility]- fell, 1 week stay, went to rehab 2022 [facility]- Stent put in leading to kidney 04/02 08/21 [facility] for breast exam results breast cance r 04/2017 Admitted to [facility] x5 days;pnom onia 02/23/2015-02/23/2015
--- OUTSIDE RECORDS SUMMARY | 2025-03-19 16:32 | XMS_ITS | Encounter Summary ---
Author Organization [facility] Address [address] [place] [address] Phone Care Team Providers Care Mannequin Coloring Artist Name Role Phone Chris Stokes MD Unavailable [phone] Ene Menon FABRICATION SUPERVISOR Primary Care Provider [phone] Niall Tobar MD Unavailable Chavo Zimmer MD Unavailable Vick Gibson MD Unavailable [phone] Zehra Azevedo PA-C Unavailable dede Chavo Zimmer MD Unavailable Ene Menon FABRICATION SUPERVISOR Primary Care Provider [phone] Silvino Souza PA-C Primary Care Provider [phone] Encounter Details Date Type Department Care Team (Late st Contact Info) Description 02/14/2021 Procedure Pass Echo Lab [address] [place] [address] Social History Tobacco Use Types Packs/Day Years [...] st Contact Info) Description 11/03/2024 Procedure Pass [address] [address] 03/25/2025 8:40 AM EDT Office Visit [facility] Internal Medicine [address] [place] [address] Silvino Souza PA-C [address] [place] [address] 05/29/2025 3:30 PM EST Appointment [address] [address] Vick Gibson MD [address] [place] [address] 06/04/2025 4:00 PM EST Office Visit [facility] at [address] [address] Vick Gibson MD [address] [place] [address] documented as of this encounter Visit Diagnoses Not on filedocumented in this encounter Additional Health Concerns Infection Onset Date Last Indicated Resolved Time CoV-Exposed Comment:Recent close contact documented in the COVID-19 Amb Triage Form 06/28/2021 06/28/2021 07/23/2021 1:[address] Assessment Noted Time PHQ-2 Depression Total Score: 0 05/05/20 21 1:24 PM EDT documented as of this encounter Care Teams Mannequin Coloring Artist Relationship Specialty Start Date End Date Ene Menon, FABRICATION SUPERVISOR [address] [place] [address] [email or web address] PCP - General Family Medicine 03/08/18 09/04/23 Ene Menon NP [address] [place] [address] PCP - General 01/18/24 01/30/24 Silvino Souza PA-C [address] [place] [phone] [email or web address] PCP - General Physician Vice President Consulting Services 01/31/24 Chris Stokes MD [address] [place] [address] [email or web address] Insurance Assigned Provider 09/29/17 12/10/21 Niall Tobar MD [address] [place] [address] Dr [address] [place] [address] Ophthalmology 10/01/19 Chavo Zimmer MD [address] [place] [address] [place] [address] Nephrology 10/03/19 01/30/23 Vick Gibson MD [address] [place] [address] [email or web address] Primary Oncologist Medical Oncology 05/24/20 Zehra Azevedo PA-C [address] [place] [address] [email or web address] Physician Vice President Consulting Services Medical Oncology 03/21/22 08/20/23 Chavo Zimmer MD [address] [place] [address] Nephrology 01/31/23 documented as of this encounter Additional Source Comments The information contained in this document represents components of the legal health record. It is not the complete legal health record.[facility]
--- OUTSIDE RECORDS SUMMARY | 2025-03-19 16:32 | XMS_ITS | Encounter Summary ---
Author Organization [facility] Address [address] [place] [address] Phone Care Team Providers Care Customer Service Advisor Name Role Phone Ene Menon PULMONOLOGY PHYSICIAN Primary Care Provider [phone] Niall Tobar MD Unavailable Chavo Zimmer MD Unavailable Vick Gibson MD Unavailable [phone] Zehra Azevedo PA-C Unavailable dede Chavo Zimmer MD Unavailable Ene Menon PULMONOLOGY PHYSICIAN Primary Care Provider [phone] Silvino Souza PA-C Primary Care Provider [phone] Reason for Referral * MRI/CAT Scan - Closed Specialty Diagnoses / Procedures Referred By Albert garcia Referred To Contact Radiology Diagnoses Constipation, unspecified constipation type Diarrhea, unspecified type Procedures CT Abdomen/Pelvis Sabra Centeno PA-C Phone: tel: fax: [email or web address] Referral ID Status Reason Start Date Expiration Date Visits Re quested Visits Authorized [id number] Closed 07/12/2022 07/12/2023 1 1 Encounter Details Date Type Department Care Team (Latest Contact Info) Description 07/12/2022 Transcribe Orders Virtual Department [address] [place] [address] Sabra Centeno PA-C [address] [place] [address] Constipation, unspecified constipation type (Primary Dx); Diarrhea, unspecified type Social History Tobacco Use Types [...] Contact Info) Description 11/03/2024 Procedure Pass [address] [address] 03/25/2025 8:40 AM EDT Office Visit [facility] Internal Medicine [address] [place] [address] Silvino Souza PA-C [address] [place] [address] 05/29/2025 3:30 PM EST Appointment [address] [address] Vick Gibson MD [address] [place] [address] 06/04/2025 4:00 PM EST Office Visit [facility] at [address] [address] Vick Gibson MD [address] [place] [address] [email or web address] documented as of this encounter Results * CT ABDOMEN/PELVIS WITHOUT CONTRAST (07/14/2022 2:23 PM EST) Anatomical Region Laterality Modality Abdomen, Pelvis Computed Tomogra phy 07/17/2022 9:53 AM EST Impressions 07/17/2022 9:57 AM EST No masses seen. 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 RECOMMENDATIONS: Chest CT Narrative 07/17/2022 9:[address] ABDOMEN/PELVIS WITHOUT CONTRAST TECHNIQUE: Multidetector-row CT of the abdomen and pelvis was performed without intravenous contrast using tailored dose modulation techniques. Images were reconstructed in the axial, coronal, and sagittal planes. COMPARISON: None ABSENCE OF INTRAVENOUS CONTRAST DECREASES SENSITIVITY FOR DETECTION OF FOCAL LESIONS AND VASCULAR PATHOLOGY. FINDINGS: Lower Chest: 6 mm nodule in the right lung base (3:11) Liver: No focal lesions. Biliary: No biliary ductal dilatation. Spleen: No splenomegaly or focal lesions. Pancreas: No masses or ductal dilatation. Adrenal Glands: No nodules. Kidneys/Ureters: Right kidney is atrophied. No solid masses, stones, or hydronephrosis. Bowel: Diverticulosis. Appendix nonvisualized. No dilatation or wall thickening. Peritoneum/Retroperitoneum: Containing umbilical hernia Lymph Nodes: No lymphadenopathy. Pelvic Organs/Bladder: No mass. Vessels: Large amount of atherosclerotic vascular calcifications. 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 No destructive osseous lesions. Procedure Note Jairo Mccormick MD, ILSA - 07/17/2022 CT ABDOMEN/PELVIS WITHOUT CONTRAST TECHNIQUE: Multidetector-row CT of the abdomen and pelvis was performedwithout intravenous contrast using tailored dose modulation techniques.Images were reconstructed in the axial, coronal, and sagittal planes. COMPARISON: None ABSENCE OF INTRAVENOUS CONTRAST DECREASES SENSITIVITY FOR DETECTION OFFOCAL LESIONS AND VASCULAR PATHOLOGY. FINDINGS: Lower Chest: 6 mm nodule in the right lung base (3:11) Liver: No focal lesions. Biliary: No biliary ductal dilatation. Spleen: No splenomegaly or focal lesions. Pancreas: No masses or ductal dilatation. Adrenal Glands: No nodules. Kidneys/Ureters: Right kidney is atrophied. No solid masses, stones, orhydronephrosis. Bowel: Diverticulosis. Appendix nonvisualized. No dilatation or wallthickening. Peritoneum/Retroperitoneum: Containing umbilical hernia Lymph Nodes: No lymphadenopathy. Pelvic Organs/Bladder: No mass. Vessels: Large amount of atherosclerotic vascular calcifications. Aneurysmproximal aorta measuring 3.7 cm Bones/Soft Tissues: Normal. No destructive osseous lesions. IMPRESSION: No masses seen. 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 RECOMMENDATIONS: Chest CT Sabra Centeno PA-C [facility] CT ABD/PELVIS Final Result documented in this encounter Visit Diagnoses Diagnosis Constipation, unspecified constipation type- Primary Diarrhea, unspecified type Constipation, unspecified constipation type Diarrhea, unspecified type documented in this encounter Additional Health Concerns Assessment Noted Time PHQ-9 Depression Total Score: 14 022 2:03 PM EST PHQ-2 Depression Total Score: 6 06/09/20 22 2:03 PM EST documented as of this encounter Care Teams Customer Service Advisor Relationship Specialty Start Date End Date Ene Menon NP PCP - General Family Medicine 03/08/18 09/04/23 Ene Menon NP [address] [place] [address] [email or web address] PCP - General 01/18/24 01/30/24 Silvino Souza PA-C [address] [place] [address] [email or web address] PCP - General Physician Leach Cell Operator 01/31/24 Niall Tobar MD [address] [place] [address] Dr [facility] [place] Ophthalmology 10/01/19 Chavo Zimmer MD [address] [place] [address] Dr [facility] [place] Nephrology 10/03/19 01/30/23 Vick Gibson MD [address] [place] [address] [email or web address] Primary Oncologist Medical Oncology 05/24/20 Zehra Azevedo PA-C [address] [place] [address] Physician Leach Cell Operator Medical Oncology 03/21/22 08/20/23 Chavo Zimmer MD [address] [place] [address] Nephrology 01/31/23 documented as of this encounter Additional Source Comments The information contained in this document represents components of the legal health record. It is not the complete legal health record.[facility]
--- OUTSIDE RECORDS SUMMARY | 2025-03-19 16:32 | XMS_ITS | Encounter Summary ---
Author Organization [facility] Address [address] [place] [address] Phone Care Team Providers Care Harvest Manager Name Role Phone Chris Stokes MD Unavailable [phone] Ene Menon OYSTER OPENER Primary Care Provider [phone] Niall Tobar MD Unavailable Chavo Zimmer MD Unavailable Vick Gibson MD Unavailable [phone] Zehra Azevedo PA-C Unavailable dede Chavo Zimmer MD Unavailable Ene Menon OYSTER OPENER Primary Care Provider [phone] Silvino Souza PA-C Primary Care Provider [phone] Encounter Details Date Type Department Care Team (Late st Contact Info) Description 08/03/2020 Procedure Pass OR Admitting Dept - Virtual Department [address] [place] [address] Social History Tobacco Use Types Packs/Day Years [...] 08/03/2020 6:03 PM Bria Ceja RN * Meagher Suicide Severity Rating Scale (Screener/Recent Self-Report) Question [...] st Contact Info) Description 11/03/2024 Procedure Pass [address] [address] 03/25/2025 8:40 AM EDT Office Visit [facility] Internal Medicine [address] [place] [address] Silvino Souza PA-C [address] [place] [address] 05/29/2025 3:30 PM EST Appointment [address] [address] Vick Gibson MD [address] [place] [address] 06/04/2025 4:00 PM EST Office Visit [facility] at [address] [address] Vick Gibson MD [address] [place] [address] [email or web address] documented as of this encounter Visit Diagnoses [...] documented as of this encounter Care Teams Harvest Manager Relationship Specialty Start Date End Date Ene Menon NP [address] [place] [address] [email or web address] PCP - General Family Medicine 03/08/18 09/04/23 Ene Menon NP [address] [place] [address] [email or web address] PCP - General 01/18/24 01/30/24 Silvino Souza PA-C [address] [place] [address] PCP - General Physician Mophead Trimmer And Wrapper 01/31/24 Chris Stokes MD [address] [place] [address] [email or web address] Insurance Assigned Provider 09/29/17 12/10/21 Niall Tobar MD [address] [place] [address] [place] [address] Ophthalmology 10/01/19 GoranChavo chavez MD [address] [place] [address] [place] [address] Nephrology 10/03/19 01/30/23 Vick Gibson MD [address] [place] [address] Primary Oncologist Medical Oncology 05/24/20 Zehra Azevedo PA-C [address] [place] [address] Physician Mophead Trimmer And Wrapper Medical Oncology 03/21/22 08/20/23 Chavo Zimmer MD [address] [place] [address] Nephrology 01/31/23 documented as of this encounter Additional Source Comments The information contained in this document represents components of the legal health record. It is not the complete legal health record.[facility]
--- OUTSIDE RECORDS SUMMARY | 2025-03-19 16:32 | XMS_ITS | Encounter Summary ---
Author Organization [facility] Address [address] [place] [address] Phone Care Team Providers Care Nutrition Aide Name Role Phone Ene Menon DRAFTER PATENT Primary Care Provider [phone] Niall Tobar MD Unavailable Chavo Zimmer MD Unavailable Vick Gibson MD Unavailable [phone] Zehra Azevedo PA-C Unavailable dede Chavo Zimmer MD Unavailable Ene Menon DRAFTER PATENT Primary Care Provider [phone] Silvino Souza PA-C Primary Care Provider [phone] Encounter Details Date Type Department Care Team (Latest Contact Info) Description 10/04/[address] [facility] [address] 2nd [place] [address] Sabra Centeno PA-C [address] [place] [address] Incontinence of feces, unspecified fecal incontinence type [...] Contact Info) Description 11/03/2024 Procedure Pass [address] [address] 03/25/2025 8:40 AM EDT Office Visit [facility] Internal Medicine [address] [place] [address] Silvino Souza PA-C 40 [place], [place] [phone] 05/29/2025 3:30 PM EST Appointment [address] [address] Vick Gibson MD [address] [place] [address] 06/04/2025 4:00 PM EST Office Visit [facility] at [address] [address] Vick Gibson MD [address] [place] [address] documented as of this encounter Results * Pancreatic Elastase, Stool (10/19/2022 2:45 PM EDT) Pancreatic Elastase, Feces >500 >200 (Normal) mcg/g [facility]PATH SUPERIOR Stool (Stool) 10/19/2022 2:4 5 PM EDT 10/19/2022 2:59 PM EDT us Sabra Centeno PA-C BODY FLUIDS AND STOOLS ORDERABL ES Final Result Performing Organization Address [facility] Co de Phone Number [facility] MED/PATH [address] [place] [address] * Stool fat/fiber exam (10/19/2022 2:45 PM EDT) FATTY ACID NORMAL NORMAL [facility] Neutral Fat, stool NORMAL NORMAL [facility] Stool (Stool) 10/19/2022 2:4 5 PM EDT 10/19/2022 2:59 PM EDT us Sabra Centeno PA-C BODY FLUIDS AND STOOLS ORDERABL ES Final Result Performing Organization Address [facility] Co de Phone Number [address] [address] * Fecal immunochemical test x1 (FIT) (10/19/2022 2:45 PM EDT) Immuno Fecal Occult Negative Negative [facility] Stool (Stool) 10/19/2022 2:4 5 PM EDT 10/19/2022 2:59 PM EDT Sabra Centeno PA-C BODY FLUIDS AND STOOLS ORDERABL ES Final Result Performing Organization Address [facility] Co de Phone Number [address] [address] * Calprotectin, stool (10/19/2022 2:45 PM EDT) STOOL CALPROTECTIN 65 mcg/g [facility]/Jeremy [facility] Comment: (NOTE) Reference Range: <50 Normal 50-120 [...] STOOLS ORDERABL ES Final Result [facility]/MARADIAGA [facility] [address] [place] [address], [facility] [phone] * (ABNORMAL) Vitamin B12 (10/04/2022 3:59 PM EDT) VITAMIN B12 1,327(H) 232 - 1,245 pg/mL [facility] Blood 10/04/2022 3:59 PM EDT 10/04/2022 4:12 PM EDT us Sabra Centeno PA-C LAB BLOOD ORDERABLES Final Resu lt Performing Organization Address [facility]/ZIP Co de Phone Number [address] [address] * Ferritin (10/04/2022 3:59 PM EDT) FERRITIN 85 13 - 150 ug/L [facility] Blood 10/04/2022 3:59 PM EDT 10/04/2022 4:12 PM EDT Sabra Centeno PA-C LAB BLOOD ORDERABLES Final Resu lt Performing Organization Address [facility]/ZIP Co de Phone Number [address] [address] * Folate (10/04/2022 3:59 PM EDT) FOLIC ACID 8.0 4.2 - 19.9 ng/mL [facility] Blood 10/04/2022 3:59 PM EDT 10/04/2022 4:12 PM EDT us Sabra Centeno PA-C LAB BLOOD ORDERABLES Final Resu lt Performing Organization Address [facility]/ZIP Co de Phone Number [address] [address] * Iron and iron binding capacity (10/04/2022 3:59 PM EDT) IRON 90 30 - 160 ug/dL [facility] IRON BINDING CAPACITY 288 228 - 428 ug/dL [facility] TRANSFERRIN SATURAT. 31 15 - 50 % [facility] Blood 10/04/2022 3:59 PM EDT 10/04/2022 4:12 PM EDT us Sabra Centeno PA-C LAB BLOOD ORDERABLES Final Resu lt Performing Organization Address [facility] Co de Phone Number [address] [address] * (ABNORMAL) Lipase (10/04/2022 3:59 PM EDT) LIPASE 82(H) 16 - 63 U/L [facility] Blood 10/04/2022 3:59 PM EDT 10/04/2022 4:12 PM EDT us Sabra Centeno PA-C LAB BLOOD ORDERABLES Final Resu lt Performing Organization Address [facility]/ZIP Co de Phone Number [address] [address] * C-Reactive Protein (10/04/2022 3:59 PM EDT) C REACTIVE PROTEIN <3.0 0.0 - 4.0 mg/L [facility] Blood 10/04/2022 3:59 PM EDT 10/04/2022 4:12 PM EDT us Sabra Centeno PA-C LAB BLOOD ORDERABLES Final Resu lt [facility] [address] [place] [address] documented in this encounter Visit Diagnoses Diagnosis Incontinence of feces, unspecified fecal incontinence type- Primary Anemia, unspecified type documented in this encounter Additional Health Concerns Assessment Noted Time PHQ-9 Depression Total Score: 1 08/01/19 11:19 AM EST PHQ-2 Depression Total Score: 0 08/01/19 11:19 AM EST documented as of this encounter Care Teams Nutrition Aide Relationship Specialty Start Date End Date Ene Menon DRAFTER PATENT PCP - General Family Medicine 03/08/18 09/04/23 Ene Menon NP [address] [place] [address] PCP - General 01/18/24 01/30/24 Silvino Souza PA-C [address] [place] [address] PCP - General Physician Rug Underlay Machine Operator 01/31/24 Niall Tobar MD [address] [place] [address] Dr [place] [address] Ophthalmology 10/01/19 Chavo Zimmer MD [address] [place] [address] Dr [place] [address] Nephrology 10/03/19 01/30/23 Vick Gibson MD [address] [place] [address] Primary Oncologist Medical Oncology 05/24/20 Zehra Azevedo PA-C [address] [place] [address] [email or web address] Physician Rug Underlay Machine Operator Medical Oncology 03/21/22 08/20/23 Chavo Zimmer MD [address] [place] [address] Nephrology 01/31/23 documented as of this encounter Additional Source Comments The information contained in this document represents components of the legal health record. It is not the complete legal health record.[facility]
--- OUTSIDE RECORDS SUMMARY | 2025-03-19 16:32 | XMS_ITS | Encounter Summary ---
Author Organization [facility] Address [address] [place] [address] Phone Care Team Providers Care Leveler Name Role Phone Chris Stokes MD Unavailable [phone] Ene Menon DEPORTATION OFFICER Primary Care Provider Niall Tobar MD Unavailable Chavo Zimmer MD Unavailable Vick Gibson MD Unavailable [phone] Zehra Azevedo PA-C Unavailable dede Chavo Zimmer MD Unavailable Ene Menon DEPORTATION OFFICER Primary Care Provider [phone] Silvino Souza PA-C Primary Care Provider [phone] Encounter Details Date Type Department Care Team (Late st Contact Info) Description 07/09/2020 Ancillary Orders [facility] [place] [facility] [address] [place] [address] Vick Gibson MD 30 [place] [address] [email or web address] 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 [...] st Contact Info) Description 11/03/2024 Procedure Pass [address] [address] 03/25/2025 8:40 AM EDT Office Visit [facility] Internal Medicine 40 [place] [address] Silvino Souza PA-C 40 [place] [address] 05/29/2025 3:30 PM EST Appointment [address] [address] Vick Gibson MD [address] [place] [address] 06/04/2025 4:00 PM EST Office Visit [facility] at [address] [address] Vick Gibson MD [address] [place] [address] documented as of this encounter Results * [...] documented as of this encounter Care Teams Leveler Relationship Specialty Start Date End Date Ene Menon NP [address] [place] [address] [email or web address] PCP - General Family Medicine 03/08/18 09/04/23 Ene Menon NP [address] [place] [address] 6 [place] [address] PCP - General 01/18/24 01/30/24 Silvino Souza PA-C [address] [place] [address] [email or web address] PCP - General Physician Methods Engineer 01/31/24 Chris Stokes MD [address] [place] [address] [email or web address] Insurance Assigned Provider 09/29/17 12/10/21 Niall Tobar MD [address] [place] [address] Dr HOSKINS [address] [place] [address] Ophthalmology 10/01/19 Chavo Zimmer MD [address] [place] [address] Dr HOSKINS [address] [place] [address] Nephrology 10/03/19 01/30/23 Vick Gibson MD [address] [place] [address] [email or web address] Primary Oncologist Medical Oncology 05/24/20 Zehra Azevedo PA-C [address] [place] [address] [email or web address] Physician Methods Engineer Medical Oncology 03/21/22 08/20/23 Chavo Zimmer MD [address] [place] [address] Nephrology 01/31/23 documented as of this encounter Additional Source Comments The information contained in this document represents components of the legal health record. It is not the complete legal health record.[facility]
--- OUTSIDE RECORDS SUMMARY | 2025-03-19 16:32 | XMS_ITS | Encounter Summary ---
Author Organization [facility] Address [address] [place] [address] Phone Care Team Providers Care Housekeeping Director Name Role Phone Chris Stokes MD Unavailable [phone] Ene Menon DIRECTOR OF TECHNOLOGY Primary Care Provider [phone] Niall Tobar MD Unavailable Chavo Zimmer MD Unavailable Vick Gibson MD Unavailable [phone] Zehra Azevedo PA-C Unavailable dede Chavo Zimmer MD Unavailable Ene Menon DIRECTOR OF TECHNOLOGY Primary Care Provider [phone] Silvino Souza PA-C Primary Care Provider [phone] Encounter Details Date Type Department Care Team (Late st Contact Info) Description 05/24/2020 Procedure Pass [facility] [address] [place] [address] Social History Tobacco Use Types Packs/Day Years [...] st Contact Info) Description 11/03/2024 Procedure Pass [address] [address] 03/25/2025 8:40 AM EDT Office Visit [facility] Internal Medicine [address] [place] [address] Silvino Souza PA-C 40 [place] [address] 05/29/2025 3:30 PM EST Appointment [address] [address] Vick Gibson MD [address] [place] [address] 06/04/2025 4:00 PM EST Office Visit [facility] at [address] [address] Vick Gibson MD [address] [place] [address] documented as of this encounter Visit Diagnoses [...] documented as of this encounter Care Teams Housekeeping Director Relationship Specialty Start Date End Date Ene Menon, DIRECTOR OF TECHNOLOGY [address] [place] [address] [email or web address] PCP - General Family Medicine 03/08/18 09/04/23 Ene Menon, DIRECTOR OF TECHNOLOGY [address] [place] [address] 6 [place] [address] PCP - General 01/18/24 01/30/24 Silvino Souza PA-C 40 [place] [address] [email or web address] PCP - General Physician Box Machine Operator 01/31/24 Chris Stokes MD [address] [place] [address] [email or web address] Insurance Assigned Provider 09/29/17 12/10/21 Niall Tobar MD [address] [place] [address] [place] [address] Ophthalmology 10/01/19 Chavo Zimmer MD [address] [place] [address] [place] [address] Nephrology 10/03/19 01/30/23 Vick Gibson MD [address] [place] [address] [email or web address] Primary Oncologist Medical Oncology 05/24/20 Zehra Azevedo PA-C [address] [place] [address] [email or web address] Physician Box Machine Operator Medical Oncology 03/21/22 08/20/23 Chavo Zimmer MD [address] [place] [address] Nephrology 01/31/23 documented as of this encounter Additional Source Comments The information contained in this document represents components of the legal health record. It is not the complete legal health record.[facility]
--- OUTSIDE RECORDS SUMMARY | 2025-03-19 16:32 | XMS_ITS | Clinical Summary ---
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 We recommend aspirin long-term and continuing [...] 03/11/2025 Treatment [facility] [address] [address] Michel Harp MD End stage renal disease; Dependence on renal dialysis 03/05/2025 Orders Only [facility] [address] [address] Michel Harp MD 01/07/2025 Treatment [facility] [address] [address] Michel Harp MD End stage renal disease; [...] EDT from Last 3 Months Results * [facility] (03/05/2025 3:00 AM EDT) Only the most recent of4 resultswithin the time period is included. Lipemia Normal Normal [facility] Icterus Normal Normal [facility] Hemolysis Normal Normal [facility] 03/05/2025 3:00 AM EDT 03/06/2025 2:26 PM EDT us Michel Harp MD LAB [id number] LICITED RESULTS Final Result [facility] [address] [place] [address] * (ABNORMAL) Calcium Phosphorus Product, Adjusted (03/05/2025 [...] PM EDT us Michel Harp MD LAB [id number] LICITED RESULTS Final Result Performing Organization Address City/[facility]/ZIP Co de Phone Number [facility] [address] [place] [address] * Hepatitis B Surface Ag w/Reflex Confirmation (03/05/2025 3:00 AM EDT) Only the most recent of3 resultswithin the time period is included. Pathologist [facility] Hep B Surface Antigen Negative Negative [facility] 03/05/2025 3:00 AM EDT 03/06/2025 2:26 PM EDT us Michel Harp MD LAB BLOOD ORDERABLES Final Resu lt Performing Organization Address City/[facility]/ZIP Co de Phone Number [facility] [address] [place] [address] * BUN/CREATININE RATIO (03/05/2025 3:00 AM EDT) Only the most recent of4 resultswithin the time period is included. BUN/Creatinine Ratio 6.7 <=23.0 [facility] 03/05/2025 3:00 AM EDT 03/06/2025 2:26 PM EDT us Michel Harp MD LAB [id number] LICITED RESULTS Final Result Performing Organization Address [facility] de Phone Number [facility] [address] [place] [address] * (ABNORMAL) TSAT (03/05/2025 3:00 AM EDT) Only the most recent of3 resultswithin the time period is included. [facility] Iron 48(L) 50 - 170 ug/dL [facility] Transferrin 168(L) 250 - 380 mg/dL [facility] TIBC 235 211 - 406 ug/dL [facility] Iron Saturation (TSat) 20(L) 22 - 52 % [facility] 03/05/2025 3:00 AM EDT 03/06/2025 2:26 PM EDT us Michel Harp MD LAB BLOOD ORDERABLES Final Resu lt Performing Organization Address [facility] de Phone Number [facility] [address] [place] [address] * (ABNORMAL) CBC and Differential (03/05/2025 3:00 AM EDT) Only the most recent of3 resultswithin the time period is included. [facility] DIFFERENTIAL MANUAL, 2 Not Indicated [facility] White [...] ORDERABLES Final Resu lt Performing Organization Address [facility] Co de Phone Number [facility] [address] [place] [address] * (ABNORMAL) BUN (03/05/2025 3:00 AM EDT) Only the most recent of3 resultswithin the time period is included. BUN 41(H) 7 - 25 mg/dL [facility] 03/05/2025 3:00 AM EDT 03/06/2025 2:26 PM EDT us Michel Harp MD LAB BLOOD ORDERABLES Final Resu lt Performing Organization Address [facility] de Phone Number [facility] [address] [place] [address] * ALT (03/05/2025 3:00 AM EDT) Only the most recent of3 resultswithin the time period is included. ALT (SGPT) 13 10 - 49 U/L [facility] 03/05/2025 3:00 AM EDT 03/06/2025 2:26 PM EDT us Michel Harp MD LAB BLOOD ORDERABLES Final Resu lt Performing Organization Address [facility] Co de Phone Number [facility] [address] [place] [address] * AST (03/05/2025 3:00 AM EDT) Only the most recent of3 resultswithin the time period is included. AST (SGOT) 19 <34 U/L [facility] 03/05/2025 3:00 AM EDT 03/06/2025 2:26 PM EDT us Michel Harp MD LAB BLOOD ORDERABLES Final Resu lt Performing Organization Address [facility] Co de Phone Number [facility] [address] [place] [address] * Protein, total (03/05/2025 3:00 AM EDT) Only the most recent of3 resultswithin the time period is included. Total Protein 6.8 6.4 - 8.9 g/dL [facility] 03/05/2025 3:00 AM EDT 03/06/2025 2:26 PM EDT us Michel Harp MD LAB BLOOD ORDERABLES Final Resu lt Performing Organization Address [facility] de Phone Number [facility] [address] [place] [address] * Alkaline phosphatase (03/05/2025 3:00 AM EDT) Only the most recent of3 resultswithin the time period is included. Alkaline Phosphatase 97 46 - 116 U/L [facility] 03/05/2025 3:00 AM EDT 03/06/2025 2:26 PM EDT us Michel Harp MD LAB BLOOD ORDERABLES Final Resu lt Performing Organization Address [facility] de Phone Number [facility] [address] [place] [address] * PTH, Intact (03/05/2025 3:00 AM EDT) [...] ORDERABLES Final Resu lt Performing Organization Address [facility] Co de Phone Number [facility] [address] [place] [address] * Magnesium (03/05/2025 3:00 AM EDT) Only the most recent of3 resultswithin the time period is included. Magnesium 2.0 1.9 - 2.7 mg/dL [facility] 03/05/2025 3:00 AM EDT 03/06/2025 2:26 PM EDT us Michel Harp MD LAB BLOOD ORDERABLES Final Resu lt Performing Organization Address [facility] de Phone Number [facility] [address] [place] [address] * (ABNORMAL) Lactate dehydrogenase (03/05/2025 3:00 AM EDT) Only the most recent of3 resultswithin the time period is included. LDH 267(H) 120 - 246 U/L [facility] 03/05/2025 3:00 AM EDT 03/06/2025 2:26 PM EDT us Michel Harp MD LAB BLOOD ORDERABLES Final Resu lt Performing Organization Address [facility] de Phone Number [facility] [address] [place] [address] * Glucose, random (03/05/2025 3:00 AM EDT) Only the most recent of3 resultswithin the time period is included. Glucose 99 70 - 99 mg/dL [facility] Comment: ADA guidelines outline the following fasting glucose ranges: Normal: <100 Prediabetes: 100-125 Diabetes: >125 03/05/2025 3:00 AM EDT 03/06/2025 2:26 PM EDT us Michel Harp MD LAB BLOOD ORDERABLES Final Resu lt Performing Organization Address [facility] Co de Phone Number [facility] [address] [place] [address] * (ABNORMAL) Ferritin (03/05/2025 3:00 AM EDT) Only the most recent of3 resultswithin the time period is included. Ferritin 844(H) 10 - 291 ng/mL [facility] 03/05/2025 3:00 AM EDT 03/06/2025 2:26 PM EDT us Michel Harp MD LAB BLOOD ORDERABLES Final Resu lt Performing Organization Address [facility] de Phone Number [facility] [address] [place] [address] * (ABNORMAL) Creatinine, serum (03/05/2025 3:00 AM EDT) Only the most recent of3 resultswithin the time period is included. Creatinine 6.12(H) 0.55 - 1.02 mg/dL [facility] 03/05/2025 3:00 AM EDT 03/06/2025 2:26 PM EDT us Michel Harp MD LAB BLOOD ORDERABLES Final Resu lt Performing Organization Address [facility] de Phone Number [facility] [address] [place] [address] * (ABNORMAL) Bilirubin, total (03/05/2025 3:00 AM EDT) Only the most recent of3 resultswithin the time period is included. Total Bilirubin 0.2(L) 0.3 - 1.2 mg/dL [facility] 03/05/2025 3:00 AM EDT 03/06/2025 2:26 PM EDT Michel Harp MD LAB BLOOD ORDERABLES Final Resu Performing Organization Address [facility] Co de Phone Number [facility] [address] [place] [address] * (ABNORMAL) Electrolyte panel (03/05/2025 3:00 AM [...] Michel Harp MD LAB BLOOD ORDERABLES Final [facility] Performing Organization Address [facility] de Phone Number [facility] [address] [place] [address] * (ABNORMAL) PD Adequecy Bundled (01/07/2025 3:00 [...] [facility] Comment:Volume of distributi on estimated from [employer] formula Creatinine renal clearance 5.6(L) [...] ult - Final [facility] [address] [place] [address] * Glucose, urine, 24 hour (01/07/2025 3:00 AM EDT) Glucose 24 HR Dial 1,262 mg/dL [facility] 01/07/2025 3:00 AM EDT 01/08/2025 1:53 PM EDT us Michel Harp MD LAB URINE ORDERABLES Final Resu lt Performing Organization Address [facility] Co de Phone Number [facility] [address] [place] [address] * (ABNORMAL) Phosphorus (01/07/2025 3:00 AM EDT) Phosphorus, Serum 5.2(H) 2.5 - 5.0 mg/dL [facility] 01/07/2025 3:00 AM EDT 01/08/2025 1:29 PM EDT us Michel Harp MD LAB BLOOD ORDERABLES Final Resu lt Performing Organization Address [facility] de Phone Number [facility] [address] [place] [address] * Hemoglobin A1c (12/31/2024 3:00 AM EDT) Hemoglobin A1C 4.7 <5.7 % [facility] Comment: Methodology: Enzymatic Normal: <5.7% Prediabetes: 5.7-6.4% Diabetes: >6.4% Diabetic Glucose Control Evaluation: Therapeutic action suggested at >8.0% ADA recommends a glycemic goal of <7.0% 12/31/2024 3:00 AM EDT 01/01/2025 12:34 PM EDT us Michel Harp MD LAB BLOOD ORDERABLES Final Resu lt Performing Organization Address [facility] Co de Phone Number [facility] [address] [place] [address] * (ABNORMAL) Lipid panel (12/31/2024 3:00 AM [...] ORDERABLES Final Resu lt Performing Organization Address City/State/[facility] Co de Phone Number [facility] [address] [place] [address] from Last 3 Months Insurance Medicare [facility] [place] [address]
--- OUTSIDE RECORDS SUMMARY | 2025-03-19 16:32 | XMS_ITS | Encounter Summary ---
Author Organization [facility] Address [address] [place] [address] Phone Care Team Providers Care Roll Threader Operator Name Role Phone Chris Stokes MD Unavailable [phone] Ene Menon WHEEL ALIGNER Primary Care Provider [phone] Niall Tobar MD Unavailable Chavo Zimmer MD Unavailable Vick Gibson MD Unavailable [phone] Zehra Azevedo PA-C Unavailable dede Chavo Zimmer MD Unavailable Een Menon WHEEL ALIGNER Primary Care Provider [phone] Silvino Souza PA-C Primary Care Provider [phone] Encounter Details Date Type Department Care Team (Late st Contact Info) Description 05/24/2020 Procedure Pass [address] [address] Social History Tobacco Use Types Packs/Day Years [...] st Contact Info) Description 11/03/2024 Procedure Pass [address] [address] 03/25/2025 8:40 AM EDT Office Visit [facility] Internal Medicine 40 [place] [address] Silvino Souza PA-C 40 [place] [address] [email or web address] 05/29/2025 3:30 PM EST Appointment [address] [address] Vick Gibson MD [address] [place] [address] [email or web address] 06/04/2025 4:00 PM EST Office Visit [facility] at [address] [address] Vick Gibson MD [address] [place] [address] documented as of this encounter Visit Diagnoses [...] documented as of this encounter Care Teams Roll Threader Operator Relationship Specialty Start Date End Date Ene Menon, WHEEL ALIGNER 40 [place] [address] [email or web address] PCP - General Family Medicine 03/08/18 09/04/23 Ene Menon, WHEEL ALIGNER [address] [place] [address] 6 [place] [address] PCP - General 01/18/24 01/30/24 Silvino Souza PA-C 40 [place] [address] [email or web address] PCP - General Physician Installation Service Representative 01/31/24 Chris Stokes MD 40 [place] [address] [email or web address] Insurance Assigned Provider 09/29/17 12/10/21 Niall Tobar MD [address] [place] [address] [place] [address] Ophthalmology 10/01/19 Chavo Zimmer MD [address] [place] [address] [place] [address] Nephrology 10/03/19 01/30/23 Vick Gibson MD [address] [place] [address] [email or web address] Primary Oncologist Medical Oncology 05/24/20 Zehra Azevedo PA-C [address] [place] [address] [email or web address] Physician Installation Service Representative Medical Oncology 03/21/22 08/20/23 Chavo Zimmer MD [address] [place] [address] Nephrology 01/31/23 documented as of this encounter Additional Source Comments The information contained in this document represents components of the legal health record. It is not the complete legal health record.[facility]
--- OUTSIDE RECORDS SUMMARY | 2025-03-19 16:32 | XMS_ITS | Encounter Summary ---
Author Organization [facility] Address [address] [place] [address] Phone Care Team Providers Care Hang Gliding Instructor Name Role Phone Niall Tobar MD Unavailable Vick Gibson MD Unavailable [phone] Chavo Zimmer MD Unavailable Silvino Souza PA-C Primary Care Provider [phone] Reason for Referral * MRI/CAT Scan - Closed Specialty Diagnoses / Procedures Referred By Albert garcia Referred To Contact Radiology Procedures Outside CT Imaging Report Only [facility] Internal Medicine 40 [place] [address] Phone: tel: fax: Referral ID Status Reason Start Date Expiration Date Visits Re quested Visits Authorized [id number] Closed 03/18/2025 1 1 Encounter Details Date Type Department Care Team (Late st Contact Info) Description 03/18/2025 Orders Only [facility] Internal Medicine 40 [place] [address] Darnell Larios MD [facility] [place] [address] Social History Tobacco Use Types Packs/Day Years [...] st Contact Info) Description 11/03/2024 Procedure Pass [address] [address] 03/25/2025 8:40 AM EDT Office Visit [facility] Internal Medicine 40 [place] [address] Silvino Souza PA-C 40 [place] [address] [email or web address] 05/29/2025 3:30 PM EST Appointment [address] [address] Vick Gibson MD [address] [place] [address] 06/04/2025 4:00 PM EST Office Visit [facility] 30 [place] [address] Vick Gibson MD 30 [place] [address] documented as of this encounter Procedures Procedure Name Priority Date/Time Associated Diagnosis Comments OUTSIDE CT IMAGING REPORT ONLY Routine 03/17/2025 3:17 PM EDT documented in this encounter Results * Outside CT Imaging Report Only (03/17/2025 3:17 PM EDT) us Historical Provider MD NICK CT Final Res ult documented in this encounter Visit Diagnoses Not on filedocumented in this encounter Additional Health Concerns Assessment Noted Time PHQ-9 Depression Total Score: 1 08/01/19 23 11:19 AM EST PHQ-2 Depression Total Score: 0 05/12/20 24 11:09 AM EST documented as of this encounter Care Teams Hang Gliding Instructor Relationship Specialty Start Date End Date Silvino Souza PA-C [address] [place] [address] PCP - General Physician Canary Breeder 01/31/24 Niall Tobar MD [address] [place] [address] [place] [address] Ophthalmology 10/01/19 Vick Gibson MD [address] [place] [address] Primary Oncologist Medical Oncology 05/24/20 Chavo Zimmer MD [address] [place] [address] Nephrology 01/31/23 documented as of this encounter Additional Source Comments The information contained in this document represents components of the legal health record. It is not the complete legal health record.[facility]
--- OUTSIDE RECORDS SUMMARY | 2025-03-19 16:32 | XMS_ITS | Encounter Summary ---
Author Organization [facility] Address [address] [place] [address] Phone Care Team Providers Care Whiteprinting Machine Operator Name Role Phone Ene Menon CANDY COOKER HELPER Primary Care Provider [phone] Niall Tobar MD Unavailable Chavo Zimmer MD Unavailable Vick Gibson MD Unavailable [phone] Zehra Azevedo PA-C Unavailable dede Chavo Zimmer MD Unavailable Ene Menon CANDY COOKER HELPER Primary Care Provider [phone] Silvino Souza PA-C Primary Care Provider [phone] Encounter Details Date Type Department Care Team (Latest Contact Info) Description 07/11/2022 Transcribe Orders [facility] Laboratory [address] [place] [address] Sabra Centeno PA-C [address] [place] [address] Incontinence of feces, unspecified fecal incontinence type [...] st Contact Info) Description 11/03/2024 Procedure Pass [address] [address] 03/25/2025 8:40 AM EDT Office Visit [facility] Internal Medicine 40 [place] [address] Silvino Souza PA-C 40 [place] [address] [email or web address] 05/29/2025 3:30 PM EST Appointment [address] [address] Vick Gibson MD [address] [place] [address] [phone] 06/04/2025 4:00 PM EST Office Visit [facility] at [address] [address] Vick Gibson MD [address] [place] [address] [phone] documented as of this encounter Results * (ABNORMAL) Lipase (07/11/2022 3:30 PM EST) LIPASE 97(H) 16 - 63 U/L [facility] Blood 07/11/2022 3:30 PM EST 07/11/2022 3:41 PM EST us Sabra Centeno PA-C LAB BLOOD ORDERABLES Final Resu lt [address] [address] * C-Reactive Protein (07/11/2022 3:30 PM EST) C REACTIVE PROTEIN <3.0 0.0 - 4.0 mg/L [facility] Blood 07/11/2022 3:30 PM EST 07/11/2022 3:41 PM EST Sabra Centeno PA-C LAB BLOOD ORDERABLES Final Resu lt Performing Organization Address City/[facility]/ZIP Co de Phone Number [address] [address] * (ABNORMAL) Comprehensive metabolic panel (07/11/2022 3:30 PM EST) Pathologist [facility] SODIUM 139 133 - 146 mmol/L [facility] POTASSIUM 5.3(H) 3.3 - 5.1 mmol/L [facility] CHLORIDE 107 96 - 108 mmol/L [facility] CO2 21 21 - 35 mmol/L [facility] BUN 49(H) 6 - 19 mg/dL [facility] CREATININE 3.90(H) 0.5 - 1.5 mg/dL [facility] GLUCOSE 97 70 - 99 mg/dL [facility] ALBUMIN 3.9 3.9 - 4.8 g/dL [facility] TOTAL PROTEIN 7.1 6.5 - 8.0 g/dL [facility] CALCIUM 9.7 8.4 - 10.3 mg/dL [facility] ALKALINE PHOSPHATASE 88 39 - 117 U/L [facility] TOTAL BILIRUBIN 0.3 0.0 - 1.2 mg/dL [facility] AST 17 0 - 37 U/L [facility] ALT 8 0 - 40 U/L [facility] GLOBULIN 3.2 1 - 4.8 g/dL [facility] EGFR 11(L) >59 mL/min/1.7 3m2 [facility] Comment:Estimated glomerular filtration rate calculated using the CKD-EPI refit equation. ANION GAP 16 10 - 20 mmol/L [facility] Blood 07/11/2022 3:30 PM EST 07/11/2022 3:41 PM EST us Sabra Centeno PA-C LAB BLOOD ORDERABLES Final Resu lt [address] [address] * (ABNORMAL) CBC (07/11/2022 3:30 PM EST) WBC 8.43 4.00 - 11.00 K/uL [facility] RBC 3.52(L) 3.72 - 5.30 M/uL [facility] HGB 10.6(L) 11.4 - 15.9 g/dL [facility] HCT 32.6(L) 34.2 - 46.8 % [facility] PLT 234 140 - 430 K/uL [facility] MCV 92.6 78.0 - 97.0 fL [facility] MCH 30.1 25.0 - 33.0 pg [facility] MCHC 32.5 32.0 - 36.0 g/dL [facility] RDW 13.8 11.0 - 16.0 % [facility] MPV 10.7 8.4 - 12.8 fl [facility] Blood 07/11/2022 3:30 PM EST 07/11/2022 3:41 PM EST us Sabra Centeno PA-C LAB BLOOD ORDERABLES Final Resu lt [address] [address] * Immunoglobulin A (07/11/2022 3:30 PM EST) IgA 170 70 - 400 mg/dL [facility] Blood 07/11/2022 3:30 PM EST 07/11/2022 3:41 PM EST us Sabra Centeno PA-C LAB BLOOD ORDERABLES Final Resu lt [facility] [address] [place] [address] * Tissue transglutaminase IgA (07/11/2022 3:30 PM EST) TTG IGA ANTIBODY <1.2 <4.0 (Negative) U/mL [facility] LAB MED/[facility] Blood 07/11/2022 3:30 PM EST 07/11/2022 3:41 PM EST us Sabra Centeno PA-C LAB BLOOD ORDERABLES Final Resu lt [facility] MED/[facility] [address] [place] [address] documented in this encounter Visit Diagnoses Diagnosis Incontinence of feces, unspecified fecal incontinence type- Primary Diarrhea, unspecified type Constipation, unspecified constipation type documented in this encounter Additional Health Concerns Assessment Noted Time PHQ-9 Depression Total Score: 14 022 2:03 PM EST PHQ-2 Depression Total Score: 6 06/09/20 22 2:03 PM EST documented as of this encounter Care Teams Whiteprinting Machine Operator Relationship Specialty Start Date End Date Ene Menon NP PCP - General Family Medicine 03/08/18 09/04/23 Ene Menon NP [address] [address] PCP - General 01/18/24 01/30/24 Silvino Souza PA-C 40 [place] [address] PCP - General Physician Optical Fabricator 01/31/24 Niall Tobar MD [address] [place] [address] [address] [place] [address] Ophthalmology 10/01/19 Chavo Zimmer MD [address] [place] [address] [place] [address] Nephrology 10/03/19 01/30/23 Vick Gibson MD [address] [place] [address] [email or web address] Primary Oncologist Medical Oncology 05/24/20 Zehra Azevedo PA-C [address] [place] [address] [email or web address] Physician Optical Fabricator Medical Oncology 03/21/22 08/20/23 Chavo Zimmer MD 30 [place] [address] Nephrology 01/31/23 documented as of this encounter Additional Source Comments The information contained in this document represents components of the legal health record. It is not the complete legal health record.[facility]
--- OUTSIDE RECORDS SUMMARY | 2025-03-19 16:32 | XMS_ITS | Encounter Summary ---
Author Organization [facility] Address [address] [place] [address] [place] [address] Phone Care Team Providers Care Rubber Mixer Name Role Phone Niall Tobar MD Unavailable [phone] Vick Gibson MD Unavailable [phone] Chavo Zimmer MD Unavailable Silvino Souza PA-C Primary Care Provider [phone] Reason for Visit * Reason Onset Date Comments No Show 02/11/2025 FUV 02/11 + pt ca nceled due to feeling sick Encounter Details Date Type Department Care Team (Late st Contact Info) Description 02/11/2025 Telephone [facility] Internal Medicine [address] [place], [place] [phone] Silvino Souza PA-C 40 [place], [place] [phone] [email or web address] No Show (FUV 02/11 + pt canceled [...] can cancel appointments anytime through your Patient [place]. We appreciate your understanding. Required Scripting for [...] can cancel appointments anytime through your Patient [place]. documented in this encounter Plan of Treatment Upcoming Encounters Date Type Department Care Team (Late st Contact Info) Description 11/03/2024 Procedure Pass [facility] [address] [place] [address] 03/25/2025 8:40 AM EDT Office Visit [facility] Internal Medicine [address] [place] [address] Silvino Souza PA-C [address] [place] [email or web address] 05/29/2025 3:30 PM EST Appointment [facility], [address] [address] Vick Gibson MD [address] [place] [address] 06/04/2025 4:00 PM EST Office Visit [facility] at [address] [address] Vick Gibson MD [address] [place] [address] documented as of this encounter Visit Diagnoses Not on filedocumented in this encounter Additional Health Concerns Assessment Noted Time PHQ-9 Depression Total Score: 1 08/01/19 23 11:19 AM EST PHQ-2 Depression Total Score: 0 05/12/20 24 11:09 AM EST documented as of this encounter Care Teams Rubber Mixer Relationship Specialty Start Date End Date Silvino Souza PA-C [address] [place] [address] PCP - General Physician Geospatial Program Management Officer 01/31/24 Niall Tobar MD [address] [place] [address] [place] [address] Ophthalmology 10/01/19 Vick Gibson MD [address] [place] [address] Primary Oncologist Medical Oncology 05/24/20 Chavo Zimmer MD [address] [place] [address] Nephrology 01/31/23 documented as of this encounter Additional Source Comments The information contained in this document represents components of the legal health record. It is not the complete legal health record.[facility]
--- OUTSIDE RECORDS SUMMARY | 2025-03-19 16:32 | XMS_ITS | Encounter Summary ---
Author Organization [facility] Address [address] [place] [address] Phone Care Team Providers Care English Language Arts Teacher Name Role Phone Ene Menon RESEARCH ANTHROPOLOGIST Primary Care Provider [phone] Niall Tobar MD Unavailable [phone] Chavo Zimmer MD Unavailable Vick Gibson MD Unavailable [phone] Zehra Azevedo PA-C Unavailable dede Chavo Zimmer MD Unavailable Ene Menon RESEARCH ANTHROPOLOGIST Primary Care Provider [phone] Silvino Souza PA-C Primary Care Provider [phone] Encounter Details Date Type Department Care Team (Late st Contact Info) Description 07/12/2022 Procedure Pass [facility], Ct Scan - [address] [address] Social History Tobacco Use Types Packs/Day Years [...] st Contact Info) Description 11/03/2024 Procedure Pass [address] [address] 03/25/2025 8:40 AM EDT Office Visit [facility] Internal Medicine 40 [place] [address] Silvino Souza PA-C 40 [place] [address] 05/29/2025 3:30 PM EST Appointment [address] [address] Vick Gibson MD [address] [place] [address] 06/04/2025 4:00 PM EST Office Visit [facility] at [address] [address] Vick Gibson MD [address] [place] [address] documented as of this encounter Visit Diagnoses Not on filedocumented in this encounter Additional Health Concerns Assessment Noted Time PHQ-9 Depression Total Score: 14 022 2:03 PM EST PHQ-2 Depression Total Score: 6 06/09/20 22 2:03 PM EST documented as of this encounter Care Teams English Language Arts Teacher Relationship Specialty Start Date End Date Ene Menon NP PCP - General Family Medicine 03/08/18 09/04/23 Ene Menon NP [address] [place] [address] 6 [place] [address] [email or web address] PCP - General 01/18/24 01/30/24 Silvino Souza PA-C [address] [place] [address] PCP - General Physician Auto Body Customizer 01/31/24 Niall Tobar MD [address] [place] [address] Dr [address] [address] [place] [address] Ophthalmology 10/01/19 Chavo Zimmer MD [address] [place] [address] Dr [address]KINS [address] [place] [address] Nephrology 10/03/19 01/30/23 Vick Gibson MD [address] [place] [address] Primary Oncologist Medical Oncology 05/24/20 Zehra Azevedo PA-C [address] [place] [address] Physician Auto Body Customizer Medical Oncology 03/21/22 08/20/23 Chavo Zimmer MD [address] [place] [address] Nephrology 01/31/23 documented as of this encounter Additional Source Comments The information contained in this document represents components of the legal health record. It is not the complete legal health record.[facility]
--- OUTSIDE RECORDS SUMMARY | 2025-03-19 16:32 | XMS_ITS | Encounter Summary ---
Author Organization [facility] Address [address] [place] [address] Phone Care Team Providers Care Correction Officer Penitentiary Name Role Phone Ene Menon HOURLY ASSOCIATE Primary Care Provider [phone] Niall Tobar MD Unavailable Chavo Zimmer MD Unavailable Vick Gibson MD Unavailable [phone] Zehra Azevedo PA-C Unavailable dede Chavo Zimmer MD Unavailable Ene Menon HOURLY ASSOCIATE Primary Care Provider [phone] Silvino SouzaC Primary Care Provider [phone] Reason for Referral * - Closed Specialty Diagnoses / Procedures Referred By Albert garcia Referred To Contact Radiology Diagnoses Claudication in peripheral vascular disease Procedures US Lower Extremity Arteries Duplex Complete (Bilateral) Roger Ochoa MD Phone: tel: fax: [email or web address] Referral ID Status Reason Start Date Expiration Date Visits Re quested Visits Authorized [id number] Closed 05/10/2022 05/10/2023 1 1 Encounter Details Date Type Department Care Team (Latest Contact Info) Description 05/10/2022 Ancillary Orders [facility] [address] [place] [address] Roger Ochoa MD [address] [facility], [address] [place] [address] [email or web address] Claudication in peripheral vascular disease Social [...] st Contact Info) Description 11/03/2024 Procedure Pass [address] [address] 03/25/2025 8:40 AM EDT Office Visit [facility] Internal Medicine 40 [place] [address] Silvino Souza PA-C 40 [place] [address] 05/29/2025 3:30 PM EST Appointment [address] [address] Vick Gibson MD [address] [place] [address] 06/04/2025 4:00 PM EST [facility] at [address] [address] Vick Gibson MD 30 [place] [address] [email or web address] documented as of this encounter Results * [...] documented as of this encounter Care Teams Correction Officer Penitentiary Relationship Specialty Start Date End Date Een Menon NP PCP - General Family Medicine 03/08/18 09/04/23 Ene Menon NP [address] [place] [address] PCP - General 01/18/24 01/30/24 Silvino Souza PA-C 40 [place] [address] PCP - General Physician Customer Experience Specialist 01/31/24 Niall Tobar MD [address] [place] [address] [place] [address] Ophthalmology 10/01/19 Chavo Zimmer MD [address] [place] [address] [place] [address] Nephrology 10/03/19 01/30/23 Vick Gibson MD [address] [place] [address] Primary Oncologist Medical Oncology 05/24/20 Zehra Azeveod PA-C [address] [place] [address] [email or web address] Physician Customer Experience Specialist Medical Oncology 03/21/22 08/20/23 Chavo Zimmer MD [address] [place] [address] Nephrology 01/31/23 documented as of this encounter Additional Source Comments The information contained in this document represents components of the legal health record. It is not the complete legal health record.[facility]
--- OUTSIDE RECORDS SUMMARY | 2025-03-19 16:32 | XMS_ITS | Encounter Summary ---
Author Organization [facility] Address [address] [place] [address] [place] [address] Phone Care Team Providers Care Education Program Associate Name Role Phone Niall Tobar MD Unavailable Vick Gibson MD Unavailable [phone] Chavo Zimmer MD Unavailable Ene Menon NP Primary Care Provider [phone] Silvino Souza-C Primary Care Provider [phone] Encounter Details Date Type Department Care Team (Late st Contact Info) Description 11/19/2023 Procedure Pass [facility], [address] [address] Social History Tobacco Use Types Packs/Day Years [...] Contact Info) Description 11/03/2024 Procedure Pass [address] [address] 03/25/2025 8:40 AM EDT Office Visit [facility] Internal Medicine 40 [place] [address] Silvino Souza PA-C 40 [place] [address] [email or web address] 05/29/2025 3:30 PM EST Appointment [address] [address] Vick Gibson MD [address] [place] [address] [email or web address] 06/04/2025 4:00 PM EST Office Visit [facility] at [address] [address] Vick Gibson MD [address] [place] [address] documented as of this encounter Visit Diagnoses Not on filedocumented in this encounter Additional Health Concerns Assessment Noted Time PHQ-9 Depression Total Score: 1 08/01/19 11:19 AM EST PHQ-2 Depression Total Score: 0 02/01/20 1:19 PM EDT documented as of this encounter Care Teams Education Program Associate Relationship Specialty Start Date End Date Ene Menon, PROSPECT MANAGER [address] [place] [address] [address] [place] [address] PCP - General 01/18/24 01/30/24 Silvino Souza PA-C [address] [place] [address] [email or web address] PCP - General Physician It Quality Analyst 01/31/24 Niall Tobar MD [address] [place] [address] [place] [address] Ophthalmology 10/01/19 Vick Gibson MD [address] [place] [address] [email or web address] Primary Oncologist Medical Oncology 05/24/20 Chavo Zimmer MD [address] [place] [address] Nephrology 01/31/23 documented as of this encounter Additional Source Comments The information contained in this document represents components of the legal health record. It is not the complete legal health record.[facility]
--- OUTSIDE RECORDS SUMMARY | 2025-03-19 16:32 | XMS_ITS | Encounter Summary ---
Author Organization [facility] Address [address] [place] [address] Phone Care Team Providers Care Tallow Pumper Name Role Phone Chris Stokes MD Unavailable [phone] Ene Menon SEED SALES MANAGER Primary Care Provider [phone] Niall Tobar MD Unavailable [phone] Chavo Zimmer MD Unavailable Vick Gibson MD Unavailable Zehra Azevedo PA-C Unavailable dede Chavo Zimmer MD Unavailable Ene Menon SEED SALES MANAGER Primary Care Provider [phone] Silvino Souza PA-C Primary Care Provider [phone] Encounter Details Date Type Department Care Team (Late st Contact Info) Description 11/14/2019 Procedure Pass [facility], [address] [address] Social History Tobacco Use Types Packs/Day Years [...] Contact Info) Description 11/03/2024 Procedure Pass [address] [address] 03/25/2025 8:40 AM EDT Office Visit [facility] Internal Medicine [address] [place] [address] Silvino Souza PA-C 40 [place] [address] 05/29/2025 3:30 PM EST Appointment [address] [address] Vick Gibson MD [address] [place] [address] 06/04/2025 4:00 PM EST Office Visit [facility] at [address] [address] Vick Gibson MD [address] [place] [address] documented as of this encounter Visit Diagnoses [...] documented as of this encounter Care Teams Tallow Pumper Relationship Specialty Start Date End Date Ene Menon, SEED SALES MANAGER [address] [place] [address] [email or web address] PCP - General Family Medicine 03/08/18 09/04/23 Ene Menon, SEED SALES MANAGER [address] [place] [address] 6 [place] [address] PCP - General 01/18/24 01/30/24 Silvino Souza PA-C [address] [place] [address] [email or web address] PCP - General Physician Bargain Table Clerk 01/31/24 Chris Stokes MD [address] [place] [address] [email or web address] Insurance Assigned Provider 09/29/17 12/10/21 Niall Tobar MD [address] [place] [address] [place] [address] Ophthalmology 10/01/19 Chavo Zimmer MD [address] [place] [address] [place] [address] Nephrology 10/03/19 01/30/23 Vick Gibson MD [address] [place] [address] [email or web address] Primary Oncologist Medical Oncology 05/24/20 Zehra Azevedo PA-C [address] [place] [address] [email or web address] Physician Bargain Table Clerk Medical Oncology 03/21/22 08/20/23 Chavo Zimmer MD [address] [place] [address] Nephrology 01/31/23 documented as of this encounter Additional Source Comments The information contained in this document represents components of the legal health record. It is not the complete legal health record.[facility]
--- OUTSIDE RECORDS SUMMARY | 2025-03-19 16:32 | XMS_ITS | Encounter Summary ---
Author Organization [facility] Address [address] [place] [address] Phone Care Team Providers Care Motorcoach Operator Name Role Phone Chris Stokes MD Unavailable [phone] Ene Menon AIR CONDITIONING MECHANIC INDUSTRIAL Primary Care Provider [phone] Niall Tobar MD Unavailable Chavo Zimmer MD Unavailable Vick Gibson MD Unavailable [phone] Zehra Azevedo PA-C Unavailable dede Chavo Zimmer MD Unavailable Ene Menon AIR CONDITIONING MECHANIC INDUSTRIAL Primary Care Provider [phone] Silvino Souza PA-C Primary Care Provider [phone] Encounter Details Date Type Department Care Team (Late st Contact Info) Description 02/28/2021 Procedure Pass [facility], [address] [address] Social History Tobacco Use Types Packs/Day Years [...] st Contact Info) Description 11/03/2024 Procedure Pass [address] [address] 03/25/2025 8:40 AM EDT Office Visit [facility] Internal Medicine 40 [place] [address] Silvino Souza PA-C 40 [place] [address] 05/29/2025 3:30 PM EST Appointment [address] [address] Vick Gibson MD [address] [place] [address] 06/04/2025 4:00 PM EST Office Visit [facility] at [address] [address] Vick Gibson MD [address] [place] [address] documented as of this encounter Visit Diagnoses Not on filedocumented in this encounter Additional Health Concerns Infection Onset Date Last Indicated Resolved Time CoV-Exposed Comment:Recent close contact documented in the COVID-19 Amb Triage Form 06/28/2021 06/28/2021 07/23/2021 1:[address] Assessment Noted Time PHQ-2 Depression Total Score: 0 05/05/20 1:24 PM EDT documented as of this encounter Care Teams Motorcoach Operator Relationship Specialty Start Date End Date Ene Menon, AIR CONDITIONING MECHANIC INDUSTRIAL [address] [place] [address] PCP - General Family Medicine 03/08/18 09/04/23 Ene Menon AIR CONDITIONING MECHANIC INDUSTRIAL [address] [place] [address] 6 [place] [address] PCP - General 01/18/24 01/30/24 Silvino Souza PA-C 40 [place] [address] PCP - General Physician Produce Department Manager 01/31/24 Chris Stokes MD [address] [place] [address] Insurance Assigned Provider 09/29/17 12/10/21 Niall Tobar MD [address] [place] [address] [place] [address] Ophthalmology 10/01/19 Chavo Zimmer MD [address] [place] [address] [place] [address] Nephrology 10/03/19 01/30/23 Vick Gibson MD [address] [place] [address] [email or web address] Primary Oncologist Medical Oncology 05/24/20 Zehra Azevedo PA-C [address] [place] [address] [email or web address] Physician Produce Department Manager Medical Oncology 03/21/22 08/20/23 Chavo Zimmer MD [address] [place] [address] Nephrology 01/31/23 documented as of this encounter Additional Source Comments The information contained in this document represents components of the legal health record. It is not the complete legal health record.[facility]
--- OUTSIDE RECORDS SUMMARY | 2025-03-19 16:32 | XMS_ITS | Encounter Summary ---
Author Organization [facility] Address [address] [place] [address] [place] [address] Phone Care Team Providers Care Rn Oncology Research Name Role Phone Chris Stokes MD Unavailable [phone] Ene Menon BIOLOGIST AIDE Primary Care Provider Niall Tobar MD Unavailable Chavo Zimmer MD Unavailable Vick Gibson MD Unavailable [phone] Zehra Azevedo PA-C Unavailable dede Chavo Zimmer MD Unavailable Ene Menon BIOLOGIST AIDE Primary Care Provider Silvino Souza PA-C Primary Care Provider [phone] Encounter Details Date Type Department Care Team (Late st Contact Info) Description 06/23/2020 Ancillary Orders [facility] [address] [facility] [address]rd Floor, [address] [place] [address] Ava Gipson PA-C [address] [place], [place] [phone] [email or web address] Social History Tobacco Use Types Packs/Day Years [...] st Contact Info) Description 11/03/2024 Procedure Pass [address] [address] 03/25/2025 8:40 AM EDT Office Visit [facility] Internal Medicine 40 [place] [address] Silvino Souza PA-C 40 [place] [address] 05/29/2025 3:30 PM EST Appointment [address] [address] Vick Gibson MD [address] [place] [address] 06/04/2025 4:00 PM EST Office Visit [facility] at [address] [address] Vick Gibson MD [address] [place] [address] documented as of this encounter Visit Diagnoses [...] documented as of this encounter Care Teams Rn Oncology Research Relationship Specialty Start Date End Date Ene Menon, BIOLOGIST AIDE 40 [place] [address] PCP - General Family Medicine 03/08/18 09/04/23 Ene Menon, BIOLOGIST AIDE [address] [place] [address] PCP - General 01/18/24 01/30/24 Silvino Souza PA-C 40 [place] [address] PCP - General Physician Tax Compliance Manager 01/31/24 Chris Stokes MD 40 [place] [address] [email or web address] Insurance Assigned Provider 09/29/17 12/10/21 Niall Tobar MD [address] [place] [address] Dr [facility] [place] [address] Ophthalmology 10/01/19 Chavo Zimmer MD [address] [place] [address] [address] [place] [address] Nephrology 10/03/19 01/30/23 Vick Gibson MD [address] [place] [address] [email or web address] Primary Oncologist Medical Oncology 05/24/20 Zehra Azevedo PA-C [address] [place] [address] [email or web address] Physician Tax Compliance Manager Medical Oncology 03/21/22 08/20/23 Chavo Zimmer MD [address] [place] [address] Nephrology 01/31/23 documented as of this encounter Additional Source Comments The information contained in this document represents components of the legal health record. It is not the complete legal health record.[facility]
--- OUTSIDE RECORDS SUMMARY | 2025-03-19 16:32 | XMS_ITS | Encounter Summary ---
Author Organization [facility] Address [address] [facility] [address] [place] [address] Phone Care Team Providers Care Pressure Test Operator Name Role Phone Niall Tobar MD Unavailable Vick Gibson MD Unavailable [phone] Chavo Zimmer MD Unavailable Ene Menon NP Primary Care Provider [phone] Silvino Souza-C Primary Care Provider [phone] Encounter Details Date Type Department Care Team (Latest Contact Info) Description 11/19/2023 Transcribe Orders Virtual Department 30 [place] [address] Veronique Uriostegui, [facility] [address] [address] [email or web address] Breast screening (Primary Dx) Social History Tobacco [...] st Contact Info) Description 11/03/2024 Procedure Pass [address] [address] 03/25/2025 8:40 AM EDT Office Visit [facility] Internal Medicine 40 [place] [address] Silvino Souza PA-C 40 [place] [address] 05/29/2025 3:30 PM EST Appointment [address] [address] Vick Gibson MD [address] [place] [address] 06/04/2025 4:00 PM EST Office Visit [facility] at [address] [address] Vick Gibson MD [address] [place] [address] documented as of this encounter Results * [...] results and recommendations. us Veronique Ender Uriostegui RESISTANCE BRAZER IMG MG EXAMS Final Resul t documented in this encounter Visit Diagnoses Diagnosis Breast screening- Primary Breast screening, unspecified Breast screening Breast screening, unspecified documented in this encounter Additional Health Concerns Assessment Noted Time PHQ-9 Depression Total Score: 1 08/01/19 23 11:19 AM EST PHQ-2 Depression Total Score: 0 02/01/20 23 1:19 PM EDT documented as of this encounter Care Teams Pressure Test Operator Relationship Specialty Start Date End Date Ene Menon NP [address] [place] [address] 6 [place] [address] PCP - General 01/18/24 01/30/24 Silvino Souza PA-C 40 [place] [address] PCP - General Physician Physicist Nuclear 01/31/24 Niall Tobar MD [address] [place] [address] [place] [address] Ophthalmology 10/01/19 Vick Gibson MD 30 [place] [address] Primary Oncologist Medical Oncology 05/24/20 Chavo Zimmer MD [address] [place] [address] Nephrology 01/31/23 documented as of this encounter Additional Source Comments The information contained in this document represents components of the legal health record. It is not the complete legal health record.[facility]
--- OUTSIDE RECORDS SUMMARY | 2025-03-19 16:32 | XMS_ITS | Encounter Summary ---
Author Organization [facility] Address [address] [place] [address] [place] [address] Phone Care Team Providers Care Maintenance And Custodian Supervisor Name Role Phone Chris Stokes MD Unavailable [phone] Ene Menon HOME HELP AIDE Primary Care Provider Niall Tobar MD Unavailable Chavo Zimmer MD Unavailable Vick Gibson MD Unavailable [phone] Zehra Azevedo PA-C Unavailable dede Chavo Zimmer MD Unavailable Ene Menon HOME HELP AIDE Primary Care Provider Silvino Souza PA-C Primary Care Provider Encounter Details Date Type Department Care Team (Late st Contact Info) Description 02/14/2021 Transcribe [facility] [address] [facility] 3rd Floor, [address] [place] [address] Ava Gipson PA-C [address] [place] [address] [email or web address] Social History Tobacco Use Types Packs/Day Years [...] Contact Info) Description 11/03/2024 Procedure Pass [address] [address] 03/25/2025 8:40 AM EDT Office Visit [facility] Internal Medicine [address] [place] [address] Silvino Souza PA-C 40 [place] [address] 05/29/2025 3:30 PM EST Appointment [address] [address] Vick Gibson MD [address] [place] [address] 06/04/2025 4:00 PM EST Office Visit [facility] at [address] [address] Vick Gibson MD [address] [place] [address] documented as of this encounter Visit Diagnoses Not on filedocumented in this encounter Additional Health Concerns Infection Onset Date Last Indicated Resolved Time CoV-Exposed Comment:Recent close contact documented in the COVID-19 Amb Triage Form 06/28/2021 06/28/2021 07/23/2021 1:[address] Assessment Noted Time PHQ-2 Depression Total Score: 0 12/22/19 21 1:11 PM EDT documented as of this encounter Care Teams Maintenance And Custodian Supervisor Relationship Specialty Start Date End Date Ene Menon, HOME HELP AIDE [address] [place] [address] [email or web address] PCP - General Family Medicine 03/08/18 09/04/23 Ene Menon, HOME HELP AIDE [address] [place] [address] PCP - General 01/18/24 01/30/24 Silvino Souza PA-C 40 [place] [address] [email or web address] PCP - General Physician Cosmetics Presser 01/31/24 Chris Stokes MD [address] [place] [address] [email or web address] Insurance Assigned Provider 09/29/17 12/10/21 Niall Tobar MD [address] [place] [address] [place] [address] Ophthalmology 10/01/19 Chavo Zimmer MD [address] [place] [address] [place] [address] Nephrology 10/03/19 01/30/23 Vick Gibson MD [address] [place] [address] [email or web address] Primary Oncologist Medical Oncology 05/24/20 Zehra Azevedo PA-C [address] [place] [address] [email or web address] Physician Cosmetics Presser Medical Oncology 03/21/22 08/20/23 Chavo Zimmer MD [address] [place] [address] Nephrology 01/31/23 documented as of this encounter Additional Source Comments The information contained in this document represents components of the legal health record. It is not the complete legal health record.[facility]
--- OUTSIDE RECORDS SUMMARY | 2025-03-19 16:32 | XMS_ITS | Encounter Summary ---
Author Organization [facility] Address [address] [place] [address] Phone Care Team Providers Care Foster Care Social Worker Name Role Phone Chris Stokes MD Primary Care Provider [phone] Chris Stokes MD Unavailable [phone] Timmy Bradford MD Unavailable [phone] Radha Rose PROCESS SPECIALIST Unavailable [phone] Ene Menon PROCESS SPECIALIST Unavailable [phone] Chris Stokes MD Unavailable [phone] Ene Menon PROCESS SPECIALIST Primary Care Provider [phone] Niall Tobar MD Unavailable Chavo Zimmer MD Unavailable Vick Gibson MD Unavailable [phone] Zehra Azevedo PA-C Unavailable dede Chavo Zimmer MD Unavailable Ene Menon PROCESS SPECIALIST Primary Care Provider [phone] Silvino Souza PA-C Primary Care Provider [phone] Reason for Referral * - Closed Specialty Diagnoses / Procedures Referred By Contac t Referred To Contact Procedures [place] Other Outside (No Interpretation) System, Provider Not In, PhD [address] [address] Referral ID Status Reason Start Date Expiration Date Visits Re quested Visits Authorized [id number] Closed 05/23/2017 05/23/2018 1 1 Encounter Details Date Type Department Care Team (Late st Contact Info) Description 05/23/2017 Ancillary Orders [facility] [address] [place] [address] System, Provider Not In, PhD Partners [address] [address] Social History Tobacco Use Types Packs/Day Years [...] st Contact Info) Description 11/03/2024 Procedure Pass [address] [address] 03/25/2025 8:40 AM EDT Office Visit [facility] Internal Medicine 40 [place] [address] Silvino Souza PA-C 40 [place] [address] 05/29/2025 3:30 PM EST Appointment [address] [address] Vick Gibson MD [address] [place] [phone] 06/04/2025 4:00 PM EST Office Visit [facility] at [address] [address] Vick Gibson MD [address] [place] [address] [email or web address] documented as of this encounter Results * [...] documented as of this encounter Care Teams Foster Care Social Worker Relationship Specialty Start Date End Date Chris Stokes MD [address] [place] [address] PCP - General 04/19/17 03/07/18 Ene Menon PROCESS SPECIALIST [address] [place] [address] PCP - General Family Medicine 03/08/18 09/04/23 Ene Menon NP [address] [place] [address] PCP - General 01/18/24 01/30/24 Silvino Souza PA-C [address] [place] [address] [email or web address] PCP - General Physician Clothing Designer 01/31/24 Chris Stokes MD [address] [place] [address] Historical LMR Provider 04/19/17 03/07/18 Timmy Bradford MD [address] [place] [address], 2nd [place] [address] Historical LMR Provider 04/19/17 09/30/19 Radha Rose NP [address] [place] [address] Historical LMR Provider 04/19/17 Ene Ryan NP [address] [place] [address] [email or web address] Historical LMR Provider 04/19/17 03/07/18 Chris Stokes MD [address] [place] [address] Insurance Assigned Provider 09/29/17 12/10/21 Niall Tobar MD [address] [place] [address] [place] [address] Ophthalmology 10/01/19 Chavo Zimmer MD [address] [place] [address] [place] [address] Nephrology 10/03/19 01/30/23 Vick Gibson MD [address] [place] [address] Primary Oncologist Medical Oncology 05/24/20 Zehra Azevedo PA-C [address] [place] [address] Physician Clothing Designer Medical Oncology 03/21/22 08/20/23 Chavo Zimmer MD [address] [place] [address] Nephrology 01/31/23 documented as of this encounter Additional Source Comments The information contained in this document represents components of the legal health record. It is not the complete legal health record.[facility]
== END 2025-03-19 14:51 | disposition home or self-care (01) ==
LOC: HO.US 14:50
PROVIDERS: PCP Physician Assistant Surgical; Visit Provider Ophthalmology
DX: H54.7 Unspecified visual loss (principal); R79.82 Elevated C-reactive protein (CRP); E11.9 Type 2 diabetes mellitus without complications; R70.0 Elevated erythrocyte sedimentation rate; I65.21 Occlusion and stenosis of right carotid artery
CPT/HCPCS: 93880

== ENCOUNTER → 2025-03-19 15:45 | Outpatient (BNV) | payer MEDICARE, SELFPAY | PROVIDERS: PCP Physician Assistant Surgical; Visit Provider Radiology Diagnostic Radiology | DX: I65.21 Occlusion and stenosis of right carotid artery (principal) | CPT/HCPCS: 93880 ==

== ENCOUNTER 2025-03-23 11:49 | Outpatient (REF) | payer MEDICARE, SELFPAY ==
--- OUTSIDE RECORDS SUMMARY | 2024-03-24 11:45 | XMS_ITS ---
Author Organization [facility] Address [address] [place] [phone] Care Team Providers Care Airport Location Manager Name Role Phone Silvino Souza Primary Care Provider Mallorie Marie [phone] Encounters Encounter Location Date Provider Diagnosis [address] [phone] 03/24/2024 Mallorie Campos Plan Of Treatment Next Appt Details Provider Name:Mallorie Camila Campos , 05/11/2025 03:00:00 PM, [address] [place] [address], [phone], Progress Notes * Paulette GARCIAS LDOB: (89 yo F)Acc No.[id number]:03/24/2024 Progress Note Patient: Paulette OLSON Provider: Zabrina Campos DPM :1935 A ge:88 Y S ex:Female Date:03/24/2024 Address:[address] [place], [place] [phone] Pcp:Silvino Souza Subjective: * Chief Complaints: * [...] 03/24/2024 Generated for Printi ng/Faxing/eTransmitting on: 0 03/23/2025 02:31 PM EDT
[2025-03-23 13:33] VITALS: BP 136/66; PULSE 77; RESP 16; O2SAT 96; BMI 25.8
--- OUTSIDE RECORDS SUMMARY | 2025-03-23 14:32 | XMS_ITS | Clinical Summary ---
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 We recommend aspirin long-term and continuing Plavix [...] 03/11/2025 Treatment [facility] [address] [address] Michel Harp MD End stage renal disease; Dependence on renal dialysis 03/05/2025 Orders Only [facility] [address] [address] Michel Harp MD 01/07/2025 Treatment [facility] [address] [phone] Michel Harp MD End stage renal disease; [...] EDT from Last 3 Months Results * [facility] (03/05/2025 3:00 AM EDT) Only the most recent of4 resultswithin the time period is included. Lipemia Normal Normal [facility] Icterus Normal Normal [facility] Hemolysis Normal Normal [facility] 03/05/2025 3:00 AM EDT 03/06/2025 2:26 PM EDT us Michel Harp MD LAB AMRUBYLIZE-[id number] LICITED RESULTS Final Result [facility] [address] [place] [address] * (ABNORMAL) Calcium Phosphorus Product, Adjusted (03/05/2025 [...] PM EDT us Michel Harp MD LAB [id number]-[id number] LICITED RESULTS Final Result Performing Organization Address City/[facility]/ZIP Co de Phone Number [facility] [address] [place] [address] * Hepatitis B Surface Ag w/Reflex Confirmation (03/05/2025 3:00 AM EDT) Only the most recent of3 resultswithin the time period is included. Pathologist [facility] Hep B Surface Antigen Negative Negative [facility] 03/05/2025 3:00 AM EDT 03/06/2025 2:26 PM EDT us Michel Harp MD LAB BLOOD ORDERABLES Final Resu lt Performing Organization Address City/[facility]/ZIP Co de Phone Number [facility] [address] [place] [address] * BUN/CREATININE RATIO (03/05/2025 3:00 AM EDT) Only the most recent of4 resultswithin the time period is included. BUN/Creatinine Ratio 6.7 <=23.0 [facility] 03/05/2025 3:00 AM EDT 03/06/2025 2:26 PM EDT us Michel Harp MD LAB [id number]-[id number] LICITED RESULTS Final Result Performing Organization Address [place]/[facility] de Phone Number [facility] [address] [place] [address] * (ABNORMAL) TSAT (03/05/2025 3:00 AM EDT) Only the most recent of3 resultswithin the time period is included. [facility] Iron 48(L) 50 - 170 ug/dL [facility] Transferrin 168(L) 250 - 380 mg/dL [facility] TIBC 235 211 - 406 ug/dL [facility] Iron Saturation (TSat) 20(L) 22 - 52 % [facility] 03/05/2025 3:00 AM EDT 03/06/2025 2:26 PM EDT us Michel Harp MD LAB BLOOD ORDERABLES Final Resu lt Performing Organization Address [place]/[facility] de Phone Number [facility] [address] [place] [address] * (ABNORMAL) CBC and Differential (03/05/2025 3:00 AM EDT) Only the most recent of3 resultswithin the time period is included. [facility] DIFFERENTIAL MANUAL, 2 Not Indicated [facility] [...] ORDERABLES Final Resu lt Performing Organization Address [place]/[facility] Co de Phone Number [facility] [address] [place] [address] * (ABNORMAL) BUN (03/05/2025 3:00 AM EDT) Only the most recent of3 resultswithin the time period is included. BUN 41(H) 7 - 25 mg/dL [facility] 03/05/2025 3:00 AM EDT 03/06/2025 2:26 PM EDT us Michel Harp MD LAB BLOOD ORDERABLES Final Resu lt Performing Organization Address [facility] de Phone Number [facility] [address] [place] [address] * ALT (03/05/2025 3:00 AM EDT) Only the most recent of3 resultswithin the time period is included. ALT (SGPT) 13 10 - 49 U/L [facility] 03/05/2025 3:00 AM EDT 03/06/2025 2:26 PM EDT us Michel Harp MD LAB BLOOD ORDERABLES Final Resu lt Performing Organization Address [place]/[facility] Co de Phone Number [facility] [address] [place] [address] * AST (03/05/2025 3:00 AM EDT) Only the most recent of3 resultswithin the time period is included. AST (SGOT) 19 <34 U/L [facility] 03/05/2025 3:00 AM EDT 03/06/2025 2:26 PM EDT us Michel Harp MD LAB BLOOD ORDERABLES Final Resu lt Performing Organization Address [place]/[facility] Co de Phone Number [facility] [address] [place] [address] * Protein, total (03/05/2025 3:00 AM EDT) Only the most recent of3 resultswithin the time period is included. Total Protein 6.8 6.4 - 8.9 g/dL [facility] 03/05/2025 3:00 AM EDT 03/06/2025 2:26 PM EDT us Michel Harp MD LAB BLOOD ORDERABLES Final Resu lt Performing Organization Address [place]/[facility] de Phone Number [facility] [address] [place] [address] * Alkaline phosphatase (03/05/2025 3:00 AM EDT) Only the most recent of3 resultswithin the time period is included. Alkaline Phosphatase 97 46 - 116 U/L [facility] 03/05/2025 3:00 AM EDT 03/06/2025 2:26 PM EDT us Michel Harp MD LAB BLOOD ORDERABLES Final Resu lt Performing Organization Address [place] de Phone Number [facility] [address] [place] [address] * PTH, Intact (03/05/2025 3:00 AM EDT) [...] ORDERABLES Final Resu lt Performing Organization Address [place] Co de Phone Number [facility] [address] [place] [address] * Magnesium (03/05/2025 3:00 AM EDT) Only the most recent of3 resultswithin the time period is included. Magnesium 2.0 1.9 - 2.7 mg/dL [facility] 03/05/2025 3:00 AM EDT 03/06/2025 2:26 PM EDT us Michel Harp MD LAB BLOOD ORDERABLES Final Resu lt Performing Organization Address [place]/[facility] de Phone Number [facility] [address] [place] [address] * (ABNORMAL) Lactate dehydrogenase (03/05/2025 3:00 AM EDT) Only the most recent of3 resultswithin the time period is included. LDH 267(H) 120 - 246 U/L [facility] 03/05/2025 3:00 AM EDT 03/06/2025 2:26 PM EDT us Michel Harp MD LAB BLOOD ORDERABLES Final Resu lt Performing Organization Address [place] de Phone Number [facility] [address] [place] [address] * Glucose, random (03/05/2025 3:00 AM EDT) Only the most recent of3 resultswithin the time period is included. Glucose 99 70 - 99 mg/dL [facility] Comment: ADA guidelines outline the following fasting glucose ranges: Normal: <100 Prediabetes: 100-125 Diabetes: >125 03/05/2025 3:00 AM EDT 03/06/2025 2:26 PM EDT us Michel Harp MD LAB BLOOD ORDERABLES Final Resu lt Performing Organization Address [place] Co de Phone Number [facility] [address] [place] [address] * (ABNORMAL) Ferritin (03/05/2025 3:00 AM EDT) Only the most recent of3 resultswithin the time period is included. Ferritin 844(H) 10 - 291 ng/mL [facility] 03/05/2025 3:00 AM EDT 03/06/2025 2:26 PM EDT us Michel Harp MD LAB BLOOD ORDERABLES Final Resu lt Performing Organization Address [facility] de Phone Number [facility] [address] [place] [address] * (ABNORMAL) Creatinine, serum (03/05/2025 3:00 AM EDT) Only the most recent of3 resultswithin the time period is included. Creatinine 6.12(H) 0.55 - 1.02 mg/dL [facility] 03/05/2025 3:00 AM EDT 03/06/2025 2:26 PM EDT us Michel Harp MD LAB BLOOD ORDERABLES Final Resu lt Performing Organization Address [place] de Phone Number [facility] [address] [place] [address] * (ABNORMAL) Bilirubin, total (03/05/2025 3:00 AM EDT) Only the most recent of3 resultswithin the time period is included. Total Bilirubin 0.2(L) 0.3 - 1.2 mg/dL [facility] 03/05/2025 3:00 AM EDT 03/06/2025 2:26 PM EDT Michel Harp MD LAB BLOOD ORDERABLES Final Resu Performing Organization Address [place] Co de Phone Number [facility] [address] [place] [address] * (ABNORMAL) Electrolyte panel (03/05/2025 3:00 AM [...] Michel Harp MD LAB BLOOD ORDERABLES Final [facility] Performing Organization Address [place] de Phone Number [facility] [address] [place] [address] * (ABNORMAL) PD Adequecy Bundled (01/07/2025 3:00 [...] [facility] Comment:Volume of distributi on estimated from Pitman and Weyers formula Creatinine renal clearance 5.6(L) [...] ult - Final [facility] [address] [place] [address] * Glucose, urine, 24 hour (01/07/2025 3:00 AM EDT) Glucose 24 HR Dial 1,262 mg/dL [facility] 01/07/2025 3:00 AM EDT 01/08/2025 1:53 PM EDT us Michel Harp MD LAB URINE ORDERABLES Final Resu lt Performing Organization Address [place] Co de Phone Number [facility] [address] [place] [address] * (ABNORMAL) Phosphorus (01/07/2025 3:00 AM EDT) Phosphorus, Serum 5.2(H) 2.5 - 5.0 mg/dL [facility] 01/07/2025 3:00 AM EDT 01/08/2025 1:29 PM EDT us Michel Harp MD LAB BLOOD ORDERABLES Final Resu lt Performing Organization Address [place] de Phone Number [facility] [address] [place] [address] * Hemoglobin A1c (12/31/2024 3:00 AM EDT) Hemoglobin A1C 4.7 <5.7 % [facility] Comment: Methodology: Enzymatic Normal: <5.7% Prediabetes: 5.7-6.4% Diabetes: >6.4% Diabetic Glucose Control Evaluation: Therapeutic action suggested at >8.0% ADA recommends a glycemic goal of <7.0% 12/31/2024 3:00 AM EDT 01/01/2025 12:34 PM EDT us Michel Harp MD LAB BLOOD ORDERABLES Final Resu lt Performing Organization Address [place] Co de Phone Number [facility] [address] [place] [address] * (ABNORMAL) Lipid panel (12/31/2024 3:00 AM [...] ORDERABLES Final Resu lt Performing Organization Address City/State/[facility] Co de Phone Number [facility] [address] [place] [address] from Last 3 Months Insurance Medicare [facility] [address]
--- OUTSIDE RECORDS SUMMARY | 2025-03-23 14:32 | XMS_ITS | Patient Health Record ---
Author Organization [facility] Address [address] [place] [address] Care Team Providers Care Cartoon Artist Name Role Phone Silvino Souza Primary Care Provider Mallorie Marie Unavailable [phone] Allergies No Known Allergies Results Component Value [...] Polyneuropathy due to type 2 diabetes mellitus (084242314) Type 2 diabetes mellitus with diabetic polyneuropathy (E11.42) Active confirmed Vital Signs Blood pressure diastolic 70 mm Hg 02/02/2025 Height 5 ft 6.5in in 02/02/2025 Blood pressure systolic 110 mm Hg 02/02/2025 Weight 165 lbs 02/02/2025 BMI 26.23 kg/m2 02/02/2025 Procedures Procedure Date Ordered Date Performed Result Body Sit e 42060-HIAVSWF NAIL, 6 OR MORE 07/24/2024 N/A 26796-Dyggicqt Plate 07/24/2024 N/A 09233-BLNG SKIN LESIONS, 2 TO 4 07/24/2024 N/A 50032-BIWPIUU NAIL, 6 OR MORE 10/23/2024 N/A 62084-JJLD SKIN LESIONS, 2 TO 4 10/23/2024 N/A 49779-ADUOUYU NAIL, 6 OR MORE 02/02/2025 N/A 28067-PXYS SKIN LESIONS, 2 TO 4 02/02/2025 N/A Encounters Encounter Location Date Provider Diagnosis [address] [address] 07/24/2024 Mallorie Campos Type 2 diabetes mellitus with diabetic polyneuropathy E11.42 ; Other hammer toe(s) (acquired), right foot M20.41 ; Tinea unguium B35.1 ; Pain in left foot M79.672 ; Other hammer toe(s) (acquired), left foot M20.42 ; Ingrown nail L60.0 ; Hallux valgus of right foot M20.11 and Hallux valgus of left foot M20.[address] [address] 10/23/2024 Mallorie Campos Type 2 diabetes mellitus with diabetic polyneuropathy E11.42 and Tinea unguium B35.[address] [address] 02/02/2025 Malloriecarol Campos Type 2 diabetes mellitus with diabetic polyneuropathy E11.42 ; Tinea unguium B35.1 ; Pain in right toe(s) M79.674 ; Contusion of lesser toe of right foot without damage to nail, initial encounter S90.121A and Closed nondisplaced fracture of proximal phalanx of lesser toe of right foot, initial encounter S92.514A [address] [address] 03/24/2024 Mallorie Black Assessments Encounter Date Diagnosis [...] X ray : Foot, right 3V 02/02/2025 05364-BPYOVCI NAIL, 6 OR MORE 02/02/2025 86538-HYRMDWL NAIL, 6 OR MORE 07/24/2024 44376-KVKMGKZ NAIL, 6 OR MORE 10/23/2024 41671-CVYYZQF NAIL, 6 OR MORE 02/05/2023 44911-AWDAXGI NAIL, 6 OR MORE 05/14/2023 69981-BZCVVGT NAIL, 6 OR MORE 08/27/2023 28277-CEILTTV NAIL, 6 OR MORE 12/10/2023 78539-URLQLUV NAIL, 6 OR MORE 05/13/2018 93901-PCPNJGP NAIL, 6 OR MORE 08/05/2018 69626-WVMHADM NAIL, 6 OR MORE 10/28/2018 76894-XKEGZEE NAIL, 6 OR MORE 01/20/2019 47618-ZLESQOM NAIL, 6 OR MORE 04/17/2019 82144-WEZTSHB NAIL, 6 OR MORE 07/10/2019 49361-PDFJHMA NAIL, 6 OR MORE 02/09/2020 03056-VMZBVZD NAIL, 6 OR MORE 05/17/2020 06340-JACAMSQ NAIL, 6 OR MORE 08/23/2020 73675-DXFNQBJ NAIL, 6 OR MORE 11/22/2020 13032-CEMESVW NAIL, 6 OR MORE 05/19/2021 38977-IZSIVFE NAIL, 6 OR MORE 09/01/2021 01251-WPCQQGJ NAIL, 6 OR MORE 02/27/2022 48151-TUYACAK NAIL, 6 OR MORE 06/13/2022 52890-NFCHGXL NAIL, 6 OR MORE 11/21/2021 83072-WIAVATK NAIL, 6 OR MORE 11/06/2022 91107-DSTRGGE NAIL, 6 OR MORE 03/17/2013 47793-ARWTLNZ NAIL, 6 OR MORE 06/04/2013 94452-AXSFJXQ NAIL, 6 OR MORE 09/03/2013 92892-YZFBKQN NAIL, 6 OR MORE 12/08/2013 82120-XFDIQRM NAIL, 6 OR MORE 05/25/2014 95346-EVWBWDJ NAIL, 6 OR MORE 08/12/2014 57276-LDQEMQL NAIL, 6 OR MORE 10/22/2014 49121-URXRTQE NAIL, 6 OR MORE 01/11/2015 59901-KGQSOJP NAIL, 6 OR MORE 03/12/2014 88091-IFJXXRR NAIL, 6 OR MORE 04/05/2015 15582-WGXXJRT NAIL, 6 OR MORE 10/02/2016 09864-NGBFUPX NAIL, 6 OR MORE 12/25/2016 66070-TMUXVBA NAIL, 6 OR MORE 03/19/2017 67087-FXPGOMA NAIL, 6 OR MORE 06/11/2017 24875-XHTXBTP NAIL, 6 OR MORE 09/03/2017 35658-EOVUQMG NAIL, 6 OR MORE 11/19/2017 46907-TNGVNUH NAIL, 6 OR MORE 02/11/2018 38828-Xralnvzs Plate 04/05/2015 74809-Dzzavjsd Plate 03/12/2014 01555-Botgvacr Plate 01/11/2015 68430-Mjrroyjv Plate 10/22/2014 60470-Yvoclwsa Plate 08/12/2014 46397-Otqgbsnf Plate 05/25/2014 72394-Offyzhul Plate 12/08/2013 82582-Bttqgbdo Plate 09/03/2013 62135-Ftpbuypy Plate 07/24/2024 15515-Rjyhzwgi Plate Each Additional 10/2013 47668-Tknzzcgp Plate Each Additional 03/2014 72971-Bbknmoca Plate Each Additional 96573-Ofafqvkc Plate Each Additional 05/2015 39103-Wlrhkadv Plate Each Additional 41275-Dmqrrbeh Plate Each Additional 18827-Bzhezynh Plate Each Additional 10/2014 76767-Ztihfwhh Plate Each Additional 05/2014 32418-SCYB SKIN LESIONS, OVER 4 06/17/20 15 35225-TVPB SKIN LESIONS, OVER 4 08/30/19 16 74586-UTMA SKIN LESIONS, OVER 4 11/22/19 16 91356-XVMJ SKIN LESIONS, OVER 4 02/02/20 16 41210-KHRU SKIN LESIONS, OVER 4 04/13/20 16 79527-ROTV SKIN LESIONS, OVER 4 07/10/19 17 35509-NHYF SKIN LESIONS, 2 TO 4 04/05/20 15 19087-NKUK SKIN LESIONS, 2 TO 4 10/03/19 17 71385-GIUF SKIN LESIONS, 2 TO 4 12/26/19 17 00584-SYXI SKIN LESIONS, 2 TO 4 06/11/20 17 61264-BBEW SKIN LESIONS, 2 TO 4 03/19/20 17 92712-LFGB SKIN LESIONS, 2 TO 4 05/13/20 18 22683-KTLB SKIN LESIONS, 2 TO 4 02/12/20 18 05802-CYFG SKIN LESIONS, 2 TO 4 09/04/19 18 27761-SLXB SKIN LESIONS, 2 TO 4 11/20/19 18 07602-YKAV SKIN LESIONS, 2 TO 4 03/12/20 14 33750-SJRQ SKIN LESIONS, 2 TO 4 01/12/20 15 21028-JZQA SKIN LESIONS, 2 TO 4 10/23/19 15 32632-FBFF SKIN LESIONS, 2 TO 4 08/12/19 15 80952-OXXL SKIN LESIONS, 2 TO 4 05/25/20 14 15608-DJBY SKIN LESIONS, 2 TO 4 12/09/19 14 59412-PEHU SKIN LESIONS, 2 TO 4 09/04/19 14 64952-PMDN SKIN LESIONS, 2 TO 4 06/04/20 13 87250-ZMLN SKIN LESIONS, 2 TO 4 03/17/20 13 31249-ICPG SKIN LESIONS, 2 TO 4 10/24/19 25 22441-PJCC SKIN LESIONS, 2 TO 4 02/03/20 25 09379-YFOU SKIN LESIONS, 2 TO 4 07/24/19 44837-RLVU SKIN LESIONS, 2 TO 4 12/10/19 24 23686-NYGC SKIN LESIONS, 2 TO 4 08/27/19 24 13685-FUKL SKIN LESIONS, 2 TO 4 05/14/20 29393-UJTR SKIN LESIONS, 2 TO 4 02/06/20 23 47759-IZOF SKIN LESIONS, 2 TO 4 02/28/20 22 53058-ONCY SKIN LESIONS, 2 TO 4 06/13/20 81054-FQAJ SKIN LESIONS, 2 TO 4 11/07/19 89583-ROOE SKIN LESIONS, 2 TO 4 11/22/19 00994-JRQL SKIN LESIONS, 2 TO 4 09/02/19 22 38684-MSCP SKIN LESIONS, 2 TO 4 05/19/20 21 92732-PPXT SKIN LESIONS, 2 TO 4 11/23/19 21 00617-SCUJ SKIN LESIONS, 2 TO 4 08/23/19 21 34357-NEOS SKIN LESIONS, 2 TO 4 05/17/20 20 73702-HKZF SKIN LESIONS, 2 TO 4 02/09/20 20 79911-UZAU SKIN LESIONS, 2 TO 4 07/10/19 20 89160-FARH SKIN LESIONS, 2 TO 4 04/17/20 19 98938-EDDM SKIN LESIONS, 2 TO 4 01/21/20 19 87805-EQMX SKIN LESIONS, 2 TO 4 10/29/19 19 20898-TQXF SKIN LESIONS, 2 TO 4 08/05/19 O6737-XDRQDVHQ DYSTROPHIC NAILS ANY # H1234-VUFXSRUW DYSTROPHIC NAILS ANY # U8328-XYRFICQY DYSTROPHIC NAILS ANY # V7071-ZMZOSIKF DYSTROPHIC NAILS ANY # M2134-OWKRYJWB DYSTROPHIC NAILS ANY # J0447-VAXKAWQB DYSTROPHIC NAILS ANY # 98028,A1585-BOU TENDON SHEATH/LIGAMENT 0 02/02/2016,H1748-IPQ TENDON SHEATH/LIGAMENT 1 50,D9073-QXH TENDON SHEATH/LIGAMENT 0 12/27/2015 Next Appt Details Provider Name:Mallorie Campos , 05/11/2025 03:00:00 PM, [address] [place], [address], Insurance Providers Payer Name Payer Address Payer Phone Subscriber Number Group Number Insured Name Patient Relationship to Insured Coverage Start Date Coverage End Date [employer] Medicare Adv-[id number] [address] [address] [place] [address] [id number] Paulette Martínez Self - patient is the [...] Surgery -right 10/07/2020 Hospitalization History Reason Date(Month/Year) [facility]- trouble breathing 09/2022 [facility]- fell, 1 week stay, went to rehab 2022 [facility]- Stent put in leading to kidney 04/02 08/21 [facility] for breast exam results breast cance r 04/2017 Admitted to [facility] x5 days;pnom onia 02/23/2015-02/23/2015
== END 2025-03-23 11:50 | disposition home or self-care (01) ==
LOC: HO.MS 11:49
PROVIDERS: PCP Physician Assistant Surgical; Visit Provider Ophthalmology
PROC: (CPT 37609; principal; 2025-03-23 15:30)
DX: H34.12 Central retinal artery occlusion, left eye (principal)
CPT/HCPCS: 37609; 88305; J2004